=== PATIENT | male | born 1935 | race Caucasian/White ===

== ENCOUNTER → 2016-07-28 | Outpatient (CLI) | payer MEDICARE ==
[2016-07-28 10:03] LABS: ALT 25 U/L (21-72); AST 18 U/L (17-59); Alkaline Phosphatase 61 U/L (38-126); Anion Gap 14 mmol/L; Blood Urea Nitrogen 23 mg/dL (9-20); Calcium 8.9 mg/dL (8.4-10.2); Carbon Dioxide 20 mmol/L (22-30); Chloride 106 mmol/L (98-107); Glucose 214 mg/dL (74-99); Non-African American GFR(MDRD) >60 (>60 ml/min/1.73 sqM); Potassium 5.2 mmol/L (3.5-5.1); Sodium 140 mmol/L (137-145); Total Bilirubin 0.9 mg/dL (0.2-1.3); Total Protein 6.7 g/dL (6.3-8.2)
[2016-07-28 10:27] LABS: Partial Thromboplastin Time 24.4 sec (22.0-30.0); Prothrombin Time 10.5 sec (9.0-12.0)
[2016-07-28 10:37] LABS: Appearance,Urine Cloudy (Clear); Bilirubin,Urine 1+ (Negative); Glucose,Urine (UA) Trace (Negative); Ketones,Urine Trace (Negative); Leukocyte Esterase,Urine Trace (Negative); Mucus,Urine Occasional /hpf; Nitrite,Urine Negative (Negative); Particle Count 18633; Protein,Urine 2+ (Negative); RBC,Urine 7 /hpf (0-5); Specific Gravity,Urine 1.031 (1.001-1.035); Squamous Epithelial Cell,Urine 1 /hpf (0-4); UA Billing (MACRO vs. MICRO) MICRO; WBC,Urine 6 /hpf (0-5)
[2016-07-28 10:47] LABS: CH 28.4; CHCM 32.3; HCT 47.2 % (39.0-53.0); HDW 2.32; HGB 14.8 gm/dL (13.0-17.5); MCH 27.7 pg (25.0-35.0); MCHC 31.3 g/dL (31.0-37.0); MCV 88.4 fL (80.0-100.0); Mean Platelet Volume 6.5; RBC 5.34 m/uL (4.30-5.90); WBC 8.2 k/uL (3.8-10.6)
== END | disposition home or self-care (01) ==
LOC: LABWHC1 09:07
PROVIDERS: ATTEND Orthopaedic Surgery
DX: Z01.812 Encounter for preprocedural laboratory examination (principal)
CPT/HCPCS: 80053; 81001; 85027; 85610; 85730; 87070

== ENCOUNTER 2016-08-05 11:02 | Inpatient (IN) | payer MEDICARE ==
[2016-08-02 10:15] VITALS: BMI 33.2
[~2016-08-05 11:02] MED LIST: ACETAMINOPHEN TAB 500 MG TAB PO ONE; HYDROmorphone 1 MG/ML 1 ML SYRINGE IVP PRN; MELOXICAM 7.5 MG TAB PO ONE; MIDAZOLAM 2 MG/2 ML VIAL IV PRN; ONDANSETRON 4 MG/2 ML VIAL IVP ONE; TRANEXAMIC ACID 1,000 MG in SODIUM CHLORIDE 0.9% 100 ML IVPB ONE; ceFAZolin 2 GM in SODIUM CHLORIDE 0.9% 100 ML IVPB ONE
[2016-08-05] MEDS: LACTATED RINGERS 1,000 ML IV SCH (11:36)
[2016-08-05] MEDS ORDERED: LIDOCAINE 1% 20 ML VIAL (10MG/ML) FOR IV START INTRADERMA ONE (11:37)
[2016-08-05 11:49] LABS: Glucose,Whole Blood 162 mg/dL (75-99)
[2016-08-05] MEDS ORDERED: fentaNYL (PF) 50 MCG/ML 2 ML AMP IVP ONE (12:11)
[2016-08-05] MEDS ORDERED: DEXAMETHASONE SOD PHOSPHATE 10 MG/ML 1 ML VIAL IV ONE (12:27)
[2016-08-05] MEDS ORDERED: DIAZEPAM 5 MG TAB PO PRN ×2 (12:34)
[2016-08-05] MEDS ORDERED: HYDROcodone/APAP 5-325MG 1 EACH TAB PO PRN (12:34)
[2016-08-05] MEDS ORDERED: HYDROmorphone 1 MG/ML 1 ML SYRINGE IVP PRN ×3 (12:34)
[2016-08-05] MEDS ORDERED: NA PHOS,M-B/NA PHOS,DI-BA 133 ML ENEMA RECTAL PRN (12:34)
[2016-08-05] MEDS ORDERED: ONDANSETRON 4 MG/2 ML VIAL IVP PRN (12:34)
[2016-08-05] MEDS ORDERED: NALOXONE 0.4 MG/ML 1 ML VIAL IV PRN (12:34)
[2016-08-05] MEDS ORDERED: MAGNESIUM HYDROXIDE 2,400 MG/10 ML CUP PO PRN (12:34)
[2016-08-05] MEDS ORDERED: BISACODYL 10 MG SUPP RECTAL PRN (12:34)
[2016-08-05] MEDS ORDERED: TRANEXAMIC ACID 1,000 MG/10 ML VIAL ONE (12:36)
[2016-08-05] MEDS ORDERED: MIDAZOLAM 2 MG/2 ML VIAL ONE (12:36)
[2016-08-05] MEDS ORDERED: PROPOFOL 10 MG/ML 20 ML VIAL IV ONE (12:36)
[2016-08-05] MEDS ORDERED: fentaNYL (PF) 50 MCG/ML 2 ML AMP ONE (12:36)
[2016-08-05] MEDS ORDERED: ePHEDrine 50 MG/ML 1 ML AMP ONE (12:36)
[2016-08-05] MEDS ORDERED: ceFAZolin 3,000 MG in SODIUM CHLORIDE 0.9% IRRIGATIO 3,000 ML IRRIGATION ONE (12:36)
[2016-08-05] MEDS ORDERED: SODIUM CHLORIDE 0.9% 100 ML BAG ONE (12:36)
[2016-08-05] MEDS: ROPIVACAINE 246.25 MG, EPINEPHrine 0.5 MG, KETOROLAC 30 MG, cloNIDine HCL/PF 80 MCG, WA... MISCELLANE ONE ×10 (13:04→13:47)
[2016-08-05] MEDS ORDERED: LACTATED RINGERS 1,000 ML IV ONE (13:38)
[2016-08-05] MEDS ORDERED: ROPIVACAINE 1,100 MG, SODIUM CHLORIDE 0.9% 330 ML MISCELLANE PRN ×2 (14:05)
--- NOTE | 2016-08-05 14:13 | P.ONQ ---
Anesthesiology Proc Note - PNB - Peripheral Nerve Block Performed Right Adductor Canal Infusion Time Out Performed: Yes Indication: Acute Post-Operative Pain, Analgesia Sedation Type: Sedate with meaningful contact maintained Preparation: Sterile Prep Position: Supine Catheter Depth at Skin (cm): 6 Catheter: Indwelling Needle Types: Other (see comment) (Keren) Needle Size: 100mm (4") Needle Gauge: 18 Technique: Ultrasound Injectate: 0.5% Ropivacaine (see comment for volume) (20cc) Narrative: Blood aspirated initially. Needle withdrawn, redirected more caudally and the catheter placement was completed without further incident. Blood Aspirated: Yes Pain Paresthesia on Injection Noted: No Resistance on Injection: Normal Events: Other (see comment) (See Narrative)
--- NOTE | 2016-08-05 14:51 | XR ---
EXAMINATION TYPE: XR knee limited RT DATE OF EXAM: 08/05/2016 CLINICAL HISTORY: Postoperative evaluation Two views of the right knee are submitted. Identified are changes of total knee arthroplasty with femoral and tibial components appearing well seated. Postsurgical soft tissue changes are noted. Alignment is anatomic.
[2016-08-05 15:10] LABS: Glucose,Whole Blood 178 mg/dL (75-99)
--- NOTE | 2016-08-05 15:42 | P.OP ---
Date of Procedure: 08/05/16 Preoperative Diagnosis: Severe osteoarthritis right knee Postoperative Diagnosis: Severe osteoarthritis right knee Procedure(s) Performed: Right total knee arthroplasty Implants: Perez and Nephew Oxinium femoral component size 7, right Perez & Nephew Dawn II right nonporous tibial baseplate size 6 Perez & Nephew size 11 mm Legion XLPE dished articular insert, size 5-6 Perez & Nephew Dawn II resurfacing patellar component, 35 mm All components were cemented using Jerzy bone cement.. The articulation is ceramic on polyethylene. Anesthesia: spinal Surgeon: Ismael Sanchez Auto Vinyl Top Installer #1: Naya Fitzpatrick Estimated Blood Loss (ml): 50 Pathology: other (Bone and cartilage) Condition: stable Disposition: PACU Indications for Procedure: After failure of conservative treatment we discussed the surgical and nonsurgical treatment options at length. Patient wishes to proceed with a total knee arthroplasty. Complications specific to this procedure were discussed at length, including but not limited to infection, bleeding, stiffness , and nerve injury. Patient is aware of all these complications and informed consent was obtained Operative Findings: The operative findings are consistent with severe osteoarthritis of the right knee Description of Procedure: Patient was seen in the preoperative area consent was reviewed and operative site was marked with a skin marker. An adductor canal pain catheter was placed by anesthesia in the preoperative area. Patient was then brought to the operating room and given preoperative antibiotics intravenously. A spinal anesthetic was administered by the anesthesia department. A tourniquet was placed on the upper thigh and the lower extremity was prepped and draped in usual sterile fashion. A gram of transexamic acid was given. A universal timeout was then performed which confirmed the patient's name, surgical site, ALLERGIES, and consent. The lower extremity was then exsanguinated and tourniquet was inflated to 250 mmHg. A standard and anterior midline approach to the knee was performed. The skin and subcutaneous tissue was dissected down to the patellar tendon. A medial parapatellar arthrotomy was then performed. The knee was then extended, the patellar was everted, and the knee was again flexed. Anterior horns of both menisci were excised, and a release was performed to the posterior medial aspect of the knee. On gross visual inspection, there was complete loss of articular cartilage in the medial and patellofemoral joint spaces. There was also significant cartilage damage in the lateral compartment. There were multiple periarticular osteophytes which were then removed with a Ronguer. The femoral canal was then opened with the appropriate drill, and the intramedullary femoral cutting guide was then placed and set for 4 of valgus. The distal femoral cutting block was then pinned in place, and the distal femur was then cut. The cutting block was then removed and the cut was checked for flatness. Next, the sizing guide was then placed and set for 3 external rotation based off of the epicondylar axis and Whitesides line. After the femur was sized, the appropriate 4-in-1 cutting block was then pinned in place. The anterior condyles were cut without notching. The posterior and chamfer cuts were performed while protecting the collateral ligaments. The cutting block was then removed, and the femoral canal was plugged with autologous bone. Attention was then directed to the tibia. The remaining ACL was removed with a Ronguer, and the tibia was then gently subluxed forward with a large bent knee retractor. Any remaining menisci was excised. The posterior lateral corner was cauterized in order to cauterize the lateral geniculate artery. The extra medullary tibial cutting guide was then placed, set for the appropriate rotation , slope, and depth of resection. The proximal tibia cutting guide was then pinned in place. Proximal tibia was then cut and sized. Next trials were then placed with the appropriate-sized insert. The knee was able to fully extend and flex to 130 and was stable throughout all range of motion. The knee was then extended, patella everted. Patella was then measured, and then using an osteotomy guide, the patella was cut at the appropriate level. The patella was then measured and drilled and the patella trial was then placed. The knee was then taken through range of motion with the patella trial and the patella tracked normally. The knee was then extended patella trial was then removed and the patella was everted. Knee was then flexed and lug holes were drilled through the femoral trial and the femoral trial was then removed. The tibial was then exposed, and the tibial broach guide was then pinned in place after it was set for the appropriate rotation to allow for the most coverage without overhang. The tibia was then reamed and broached. The cut surfaces of bone were then irrigated with pulsatile lavage. The posterior structures were injected with the ropivacaine solution. The knee was also irrigated with Irrisept solution. The components were then opened, the cement was mixed, and the components were then cemented in place. The cement was allowed to harden with the knee in full extension. While the cement was hardening, the remaining soft tissues were then injected with a ropivacaine solution, which consisted of 246.25 mg of ropivacaine, 0.5 mg of epinephrine, 30 mg of Toradol, 80 g of clonidine, and 48.45 mL of sterile water, for a total of 100 mL of fluid injected. After the cemented hardened. The tourniquet was released, and hemostasis was obtained. A second gram of transexamic acid was given. The knee was again irrigated. The knee was again taken through range of motion and found to be stable throughout all range of motion of 0-130 , and the patella tracked normally. The fascia was then closed with #2 strata fix suture. The subcutaneous tissue was closed with 3-0 Vicryl and 3-0 strata fix. Dermabond tape was used for the skin and placed with the knee in flexion. The patient was placed in a sterile dressing. Patient was then transferred to recovery room in stable condition. The health care assistant ROLY Flores was required due the complexity surgery and the need for a skilled hand frame surgical elastic knitter. She assisted in positioning, draping, retraction, and closure of the wound.
[2016-08-05] MEDS: SODIUM CHLORIDE 0.9% 1,000 ML IV SCH (16:03)
[2016-08-05 17:06] LABS: Glucose,Whole Blood 194 mg/dL (75-99)
[2016-08-05 20:41] LABS: Glucose,Whole Blood 271 mg/dL (75-99)
[2016-08-05] MEDS: SENNOSIDES-DOCUSATE SODIUM 1 EACH TAB PO SCH (20:59)
[2016-08-05] MEDS: ATORVASTATIN 10 MG TAB PO SCH (20:59)
[2016-08-05] MEDS: ASPIRIN 325 MG TAB PO SCH (20:59)
[2016-08-05] MEDS: ceFAZolin 2 GM in SODIUM CHLORIDE 0.9% 100 ML IVPB SCH (21:00)
[2016-08-05] MEDS: metFORMIN 500 MG TAB PO SCH (21:36)
[2016-08-05] MEDS: LEVOTHYROXINE 25 MCG TAB PO SCH (21:36)
[2016-08-06 01:48] LABS: Glucose,Whole Blood 258 mg/dL (75-99)
[2016-08-06] MEDS: ceFAZolin 2 GM in SODIUM CHLORIDE 0.9% 100 ML IVPB SCH (04:07)
[2016-08-06] MEDS: LACTATED RINGERS 1,000 ML IV SCH ×2 (06:08→21:02)
[2016-08-06 07:23] LABS: Glucose,Whole Blood 205 mg/dL (75-99)
[2016-08-06 07:37] LABS: Basophils % (A) 0 %; CH 27.9; CHCM 33.3; Eosinophils % (A) 0 %; HCT 38.5 % (39.0-53.0); HDW 2.32; HGB 12.6 gm/dL (13.0-17.5); Luc # (Auto) 0.29; Luc % (Auto) 2; Lymphocytes # (A) 1.3 k/uL (1.0-4.8); Lymphocytes % (A) 9 %; MCH 27.5 pg (25.0-35.0); MCHC 32.7 g/dL (31.0-37.0); MCV 84.1 fL (80.0-100.0); Mean Platelet Volume 6.5; Monocytes # (A) 1.3 k/uL (0-1.0); Monocytes % (A) 9 %; Neutrophils # (A) 12.1 k/uL (1.3-7.7); Neutrophils % (A) 81 %; RBC 4.58 m/uL (4.30-5.90); RDW 13.9 % (11.5-15.5); WBC (Perox) 15.55
[2016-08-06] MEDS: metFORMIN 500 MG TAB PO SCH ×2 (07:55→20:24)
[2016-08-06] MEDS: INSULIN NPL/INSULIN LISPRO 100 UNIT/ML 10 ML VIAL (Humalog 75/25) SQ SCH ×2 (07:57→17:33)
[2016-08-06] MEDS: ASPIRIN 325 MG TAB PO SCH ×2 (08:31→20:24)
--- NOTE | 2016-08-06 09:34 | P.PN ---
Progress Note - Text The patient is status post, right adductor canal catheter placement. The catheter was placed for postoperative pain control, status post total right arthroplasty. Ropivacaine 0.2% is infusing at 8 mLs per hour. The patient has no complaints of 8 lower extremity numbness or weakness. Patient's VAS score is 3 -10. Assessment: Patient's adductor canal catheter is in place and working appropriately. Plan: continue infusion and adjust it as needed.
[2016-08-06 11:42] LABS: Glucose,Whole Blood 234 mg/dL (75-99)
[2016-08-06] MEDS: MELOXICAM 7.5 MG TAB PO SCH (11:42)
[2016-08-06] MEDS: SODIUM CHLORIDE 0.9% 1,000 ML IV SCH ×2 (11:44→21:02)
--- NOTE | 2016-08-06 11:49 | P.PN ---
Subjective Principal diagnosis: Primary osteoarthritis right knee. Status post total right knee arthroplasty. This is a 81-year-old male who is status post total right knee arthroplasty. He is doing well from an orthopedic standpoint. He has no new complaints or concerns today. Vital signs and labs are stable. Objective - Vital Signs Vital signs: Vital Signs Temp 97.4 F L 08/06/16 07:00 Pulse 80 08/06/16 07:00 Resp 16 08/06/16 07:00 BP 121/55 08/06/16 07:00 Pulse Ox 96 08/06/16 07:00 Intake & Output 08/05/16 08/06/16 08/06/16 18:59 06:59 18:59 Intake Total 1406 1010 Output Total 200 200 250 Balance 1206 810 -250 Weight 111.13 kg Intake: IV 1406 400 Sodium Chloride 0.9% 1, 400 000 ml @ 50 mls/hr IV . Q20H KELBY Rx#:[id number] Intake, IV Titration 150 Amount Sodium Chloride 0.9% 1, 150 000 ml @ 50 mls/hr IV . Q20H KELBY Rx#:[id number] Oral 460 Output: Urine 150 200 250 Estimated Blood Loss 50 Other: # Voids 1 - Exam This is a pleasant 81-year-old male in no acute distress. He is alert and oriented 3. Exam of the right lower extremity reveals that the dressing is clean, dry and intact. He has full foot and ankle motion without difficulty or pain. Neurovascular status to the right lower extremity is intact. - Labs CBC & Chem 7: 08/06/16 06:47 08/05/16 11:35 Labs: Abnormal Lab Results - Last 24 Hours (Table) 08/05/16 08/05/16 08/05/16 Range/Units 11:32 15:08 17:04 WBC (3.8-10.6) k/uL Hgb (13.0-17.5) gm/dL Hct (39.0-53.0) % Neutrophils # (1.3-7.7) k/uL Monocytes # (0-1.0) k/uL POC Glucose (mg/dL) 162 H 178 H 194 H (75-99) mg/dL 08/05/16 08/06/16 08/06/16 Range/Units 20:40 01:43 06:47 WBC 15.0 H (3.8-10.6) k/uL Hgb 12.6 L (13.0-17.5) gm/dL Hct 38.5 L (39.0-53.0) % Neutrophils # 12.1 H (1.3-7.7) k/uL Monocytes # 1.3 H (0-1.0) k/uL POC Glucose (mg/dL) 271 H 258 H (75-99) mg/dL 08/06/16 08/06/16 Range/Units 07:05 11:38 WBC (3.8-10.6) k/uL Hgb (13.0-17.5) gm/dL Hct (39.0-53.0) % Neutrophils # (1.3-7.7) k/uL Monocytes # (0-1.0) k/uL POC Glucose (mg/dL) 205 H 234 H (75-99) mg/dL Assessment and Plan (1) Primary osteoarthritis of right knee Status: Acute (2) Status post total right knee replacement Status: Acute Plan: The clinical findings are discussed with the patient. He is to continue with physical therapy as directed. He is requesting discharge to inpatient rehab.
--- NOTE | 2016-08-06 12:07 | P.HPIM ---
History of Present Illness H&P Date: 08/06/16 Chief Complaint: R Knee pain Patient is a 81-year-old male well-know to my practice, who was admitted by Dr. fox to [facility] for right total knee arthroplasty. Patient has prolonged history of osteoarthritis of the right knee, he failed conservative management and decision was made to proceed was right total knee arthroplasty. His past medical history is significant for insulin-dependent diabetes mellitus , Hypertension, hyperlipidemia, hypothyroidism, and osteoarthritis. Patient also has a previous history of prostate cancer. Past Medical History Past Medical History: Cancer, Diabetes Mellitus, Hyperlipidemia, Hypertension, Thyroid Disorder Additional Past Medical History / Comment(s): prostate cancer, hx of colon polyps History of Any Multi-Drug Resistant Organisms: None Reported Past Surgical History: Cardiac Valve Replacement, Heart Catheterization, Hernia Repair, Prostate Surgery, Tonsillectomy Additional Past Surgical History / Comment(s): OMEGA CATARACT SX. Past Anesthesia/Blood Transfusion Reactions: No Reported Reaction Past Psychological History: No Psychological Hx Reported Smoking Status: Never smoker - Past Family History Mother Family Medical History: No Reported History Medications and Allergies Home Medications Medication Instructions Recorded Confirmed Type Levothyroxine Sodium [Synthroid] 25 mcg PO HS 05/05/14 08/05/16 History Simvastatin [Zocor] 20 mg PO HS 05/05/14 08/05/16 History INSULIN LISPRO (humaLOG) [humaLOG 10 unit SQ AC-LUNCH 08/02/16 08/05/16 History (formulary)] Insulin NPL/Insulin Lispro 54 unit SQ AC-SUPPER 08/02/16 08/05/16 History [humaLOG MIX 75-25 VIAL] Insulin NPL/Insulin Lispro 60 unit SQ AC-BRKFST 08/02/16 08/05/16 History [humaLOG MIX 75-25 VIAL] Allergies Allergy/AdvReac Type Severity Reaction Status Date / Time No Known Allergies Allergy Verified 08/05/16 15:14 Physical Exam Vitals: Vital Signs Temp Pulse Pulse Pulse Resp BP Pulse Ox 08/06/16 07:00 97.4 F L 80 16 121/55 96 08/06/16 04:00 20 08/06/16 01:53 98.1 F 75 17 165/70 95 08/05/16 20:28 97.6 F 74 17 136/75 96 08/05/16 17:50 97.5 F L 69 18 136/62 95 08/05/16 17:35 69 18 135/62 08/05/16 17:20 74 18 138/65 08/05/16 17:05 71 18 137/65 08/05/16 16:50 69 18 135/64 08/05/16 16:35 68 18 126/63 08/05/16 16:20 67 18 124/58 08/05/16 16:05 68 18 130/63 08/05/16 15:50 97.5 F L 71 18 128/60 95 08/05/16 15:36 71 16 130/61 96 08/05/16 15:02 73 16 119/57 96 08/05/16 14:47 67 16 125/57 96 08/05/16 14:32 97.5 F L 75 16 105/64 95 Intake and Output 08/05/16 08/06/16 08/06/16 22:59 06:59 14:59 Intake Total 610 400 Output Total 150 200 250 Balance 460 200 -250 Intake: IV 400 Sodium Chloride 0.9% 1, 400 000 ml @ 50 mls/hr IV . Q20H KELBY Rx#:[id number] Intake, IV Titration 150 Amount Sodium Chloride 0.9% 1, 150 000 ml @ 50 mls/hr IV . Q20H KELBY Rx#:[id number] Oral 460 Output: Urine 150 200 250 Other: # Voids 1 Weight 111.13 kg 111.13 kg In general patient is alert and oriented 3 in no apparent distress HEENT head normocephalic and atraumatic Neck is supple no JVD no goiter no lymphadenopathy Chest exam reveals clear respiratory sounds no crackles no wheezing Cardiac exam reveals regular heart sounds no gallops no murmurs Abdomen is soft nontender no organomegaly with normal bowel sounds Extremity exam reveals no edema no cyanosis or clubbing Results CBC & Chem 7: 08/06/16 06:47 08/05/16 11:35 Labs: Abnormal Lab Results - Last 24 Hours (Table) 08/05/16 08/05/16 08/05/16 Range/Units 15:08 17:04 20:40 WBC (3.8-10.6) k/uL Hgb (13.0-17.5) gm/dL Hct (39.0-53.0) % Neutrophils # (1.3-7.7) k/uL Monocytes # (0-1.0) k/uL POC Glucose (mg/dL) 178 H 194 H 271 H (75-99) mg/dL 08/06/16 08/06/16 08/06/16 Range/Units 01:43 06:47 07:05 WBC 15.0 H (3.8-10.6) k/uL Hgb 12.6 L (13.0-17.5) gm/dL Hct 38.5 L (39.0-53.0) % Neutrophils # 12.1 H (1.3-7.7) k/uL Monocytes # 1.3 H (0-1.0) k/uL POC Glucose (mg/dL) 258 H 205 H (75-99) mg/dL 08/06/16 Range/Units 11:38 WBC (3.8-10.6) k/uL Hgb (13.0-17.5) gm/dL Hct (39.0-53.0) % Neutrophils # (1.3-7.7) k/uL Monocytes # (0-1.0) k/uL POC Glucose (mg/dL) 234 H (75-99) mg/dL Thrombosis Risk Factor Assmnt - Choose All That Apply Each Factor Represents 1 point: Obesity (BMI >25) Each Risk Factor Represents 3 Points: Age 75 years or older Each Risk Factor Represents 5 Points: Elective major lower extremity arthoplasty Thrombosis Risk Factor Assessment Total Risk Factor Score: 9 Thrombosis Risk Factor Assessment Level: High Risk Assessment and Plan Plan: #1 status post right total knee arthroplasty postoperative day #1, pain management and DVT prophylaxis as per orthopedic protocol, patient is maintained on aspirin 325 twice daily and oral [place] and IV dye Dilaudid. #2 underlying history of insulin-dependent diabetes mellitus patient was resumed on Humalog Mix 75/25 twice daily and Humalog 10 units before lunch Will monitor glucose level and adjust insulin dose if needed #3 underlying history of hypertension well-controlled continue current medications #4 underlying history of hypothyroidism maintained on Synthroid continue current dose #5 underlying history of hyperlipidemia maintained on Lipitor continue Will follow during this hospitalization for medical management plan is for discharge to senior care on Monday
[2016-08-06] MEDS: INSULIN LISPRO (humaLOG) 300 UNIT/3 ML VIAL SQ SCH (12:43)
[2016-08-06] MEDS: HYDROcodone/APAP 5-325MG 1 EACH TAB PO PRN (14:45)
[2016-08-06] MEDS: hydrOXYzine PAMOATE 25 MG CAP PO PRN (14:46)
[2016-08-06 16:28] LABS: Glucose,Whole Blood 192 mg/dL (75-99)
[2016-08-06 20:13] LABS: Glucose,Whole Blood 224 mg/dL (75-99)
[2016-08-06] MEDS: ATORVASTATIN 10 MG TAB PO SCH (20:24)
[2016-08-06] MEDS: LEVOTHYROXINE 25 MCG TAB PO SCH (20:24)
[2016-08-06] MEDS: SENNOSIDES-DOCUSATE SODIUM 1 EACH TAB PO SCH (20:25)
[2016-08-07 07:11] LABS: Glucose,Whole Blood 136 mg/dL (75-99)
[2016-08-07] MEDS: hydrOXYzine PAMOATE 25 MG CAP PO PRN (07:13)
[2016-08-07] MEDS: HYDROcodone/APAP 5-325MG 1 EACH TAB PO PRN (07:14)
[2016-08-07] MEDS: INSULIN NPL/INSULIN LISPRO 100 UNIT/ML 10 ML VIAL (Humalog 75/25) SQ SCH ×2 (07:18→17:40)
[2016-08-07] MEDS: metFORMIN 500 MG TAB PO SCH ×2 (08:12→20:25)
[2016-08-07] MEDS: ASPIRIN 325 MG TAB PO SCH ×2 (09:49→20:25)
[2016-08-07] MEDS: MELOXICAM 7.5 MG TAB PO SCH (09:49)
--- NOTE | 2016-08-07 10:09 | P.PN ---
Progress Note - Text The patient is status post, right adductor canal catheter placement. The catheter was placed for postoperative pain control, status post total right arthroplasty. Ropivacaine 0.2% is infusing at 8 mLs per hour. The patient has no complaints of right lower extremity numbness or weakness. Patient's VAS score is 1-2-10. Assessment: Patient's adductor canal catheter is in place and working appropriately. Plan: continue infusion and adjust it as needed..
--- NOTE | 2016-08-07 10:23 | P.PN ---
Subjective Principal diagnosis: Primary osteoarthritis right knee. Status post total right knee arthroplasty. This is a 81-year-old male who is status post total right knee arthroplasty. He is doing well from an orthopedic standpoint. He has no new complaints or concerns today. Vital signs and labs are stable. He is awaiting rehab placement. Objective - Vital Signs Vital signs: Vital Signs Temp 98.1 F 08/07/16 07:00 Pulse 76 08/07/16 07:00 Resp 15 08/07/16 07:00 BP 131/67 08/07/16 07:00 Pulse Ox 95 08/07/16 07:00 Intake & Output 08/06/16 08/07/16 08/07/16 18:59 06:59 18:59 Intake Total 400 2310 Output Total 250 500 Balance 150 1810 Intake: IV 400 Sodium Chloride 0.9% 1, 400 000 ml @ 50 mls/hr IV . Q20H KELBY Rx#:[id number] Oral 2310 Output: Urine 250 500 Other: Voiding Method Toilet Urinal # Voids 1 1 - Exam This is a pleasant 81-year-old male in no acute distress. He is alert and oriented 3. Exam of the right lower extremity reveals that the dressing is clean, dry and intact. He has full foot and ankle motion without difficulty or pain. Neurovascular status to the right lower extremity is intact. - Labs CBC & Chem 7: 08/06/16 06:47 08/05/16 11:35 Labs: Abnormal Lab Results - Last 24 Hours (Table) 08/06/16 08/06/16 08/06/16 Range/Units 11:38 16:26 20:06 POC Glucose (mg/dL) 234 H 192 H 224 H (75-99) mg/dL 08/07/16 Range/Units 06:57 POC Glucose (mg/dL) 136 H (75-99) mg/dL Assessment and Plan (1) Primary osteoarthritis of right knee Status: Acute (2) Status post total right knee replacement Status: Acute Plan: The clinical findings are discussed with the patient. He is to continue with physical therapy as directed. He is requesting discharge to inpatient rehab. We're planning discharge to rehab tomorrow.
[2016-08-07 11:25] LABS: Glucose,Whole Blood 148 mg/dL (75-99)
[2016-08-07] MEDS: INSULIN LISPRO (humaLOG) 300 UNIT/3 ML VIAL SQ SCH (12:51)
--- NOTE | 2016-08-07 13:39 | P.PN ---
Subjective Principal diagnosis: R knee pain Patient is a 81-year-old male well-know to my practice, who was admitted by Dr. fox to [facility] for right total knee arthroplasty. Patient has prolonged history of osteoarthritis of the right knee, he failed conservative management and decision was made to proceed was right total knee arthroplasty. His past medical history is significant for insulin-dependent diabetes mellitus , Hypertension, hyperlipidemia, hypothyroidism, and osteoarthritis. Patient also has a previous history of prostate cancer. Today patient is feeling better he is still having pain in the R thigh otherwise no complaints, he is able to ambulate. Objective - Vital Signs Vital signs: Vital Signs Temp 98.1 F 08/07/16 07:00 Pulse 76 08/07/16 07:00 Resp 15 08/07/16 07:00 BP 131/67 08/07/16 07:00 Pulse Ox 95 08/07/16 07:00 Intake & Output 08/06/16 08/07/16 08/07/16 18:59 06:59 18:59 Intake Total 400 2310 Output Total 250 500 Balance 150 1810 Intake: IV 400 Sodium Chloride 0.9% 1, 400 000 ml @ 50 mls/hr IV . Q20H KELBY Rx#:[id number] Oral 2310 Output: Urine 250 500 Other: Voiding Method Toilet Urinal # Voids 1 1 - Exam In general patient is alert and oriented 3 in no apparent distress HEENT head normocephalic and atraumatic Neck is supple no JVD no goiter no lymphadenopathy Chest exam reveals clear respiratory sounds no crackles no wheezing Cardiac exam reveals regular heart sounds no gallops no murmurs Abdomen is soft nontender no organomegaly with normal bowel sounds Extremity exam reveals no edema no cyanosis or clubbing - Labs CBC & Chem 7: 08/06/16 06:47 08/05/16 11:35 Labs: Abnormal Lab Results - Last 24 Hours (Table) 08/06/16 08/06/16 08/07/16 Range/Units 16:26 20:06 06:57 POC Glucose (mg/dL) 192 H 224 H 136 H (75-99) mg/dL 08/07/16 Range/Units 11:23 POC Glucose (mg/dL) 148 H (75-99) mg/dL Assessment and Plan Plan: #1 status post right total knee arthroplasty postoperative day #1, pain management and DVT prophylaxis as per orthopedic protocol, patient is maintained on aspirin 325 twice daily and oral [place] and IV dye Dilaudid. #2 underlying history of insulin-dependent diabetes mellitus patient was resumed on Humalog Mix 75/25 twice daily and Humalog 10 units before lunch Will monitor glucose level and adjust insulin dose if needed #3 underlying history of hypertension well-controlled continue current medications #4 underlying history of hypothyroidism maintained on Synthroid continue current dose #5 underlying history of hyperlipidemia maintained on Lipitor continue Will follow during this hospitalization for medical management plan is for discharge to long-term on Monday
[2016-08-07 16:36] LABS: Glucose,Whole Blood 148 mg/dL (75-99)
[2016-08-07] MEDS: LEVOTHYROXINE 25 MCG TAB PO SCH (20:25)
[2016-08-07] MEDS: ATORVASTATIN 10 MG TAB PO SCH (20:25)
[2016-08-07] MEDS: SODIUM CHLORIDE 0.9% 1,000 ML IV SCH (20:26)
[2016-08-07] MEDS: LACTATED RINGERS 1,000 ML IV SCH (20:26)
[2016-08-07] MEDS: SENNOSIDES-DOCUSATE SODIUM 1 EACH TAB PO SCH (20:26)
[2016-08-07 20:30] LABS: Glucose,Whole Blood 181 mg/dL (75-99)
[2016-08-08 01:01] VITALS: BP 157/70; TEMP 98.1
[2016-08-08 07:05] LABS: Basophils % (A) 0 %; CHCM 33.6; Eosinophils # (A) 0.1 k/uL (0-0.7); Eosinophils % (A) 1 %; HCT 36.8 % (39.0-53.0); HDW 2.32; HGB 12.6 gm/dL (13.0-17.5); Luc # (Auto) 0.23; Luc % (Auto) 2; Lymphocytes # (A) 1.6 k/uL (1.0-4.8); Lymphocytes % (A) 13 %; MCH 28.5 pg (25.0-35.0); MCHC 34.1 g/dL (31.0-37.0); MCV 83.6 fL (80.0-100.0); Mean Platelet Volume 6.4; Monocytes # (A) 1.2 k/uL (0-1.0); Monocytes % (A) 10 %; Neutrophils # (A) 8.5 k/uL (1.3-7.7); Neutrophils % (A) 73 %; RBC 4.41 m/uL (4.30-5.90); RDW 13.9 % (11.5-15.5); WBC 11.7 k/uL (3.8-10.6); WBC (Perox) 11.92
[2016-08-08 07:24] LABS: Glucose,Whole Blood 124 mg/dL (75-99)
[2016-08-08 07:45] VITALS: PULSE 92; RESP 16
[2016-08-08] MEDS: HYDROcodone/APAP 5-325MG 1 EACH TAB PO PRN (07:48)
[2016-08-08] MEDS: metFORMIN 500 MG TAB PO SCH (07:50)
[2016-08-08] MEDS: MELOXICAM 7.5 MG TAB PO SCH (08:43)
[2016-08-08] MEDS: ASPIRIN 325 MG TAB PO SCH (08:43)
--- NOTE | 2016-08-08 08:51 | P.DS ---
Providers Date of admission: 08/05/16 11:02 Expected date of discharge: 08/08/16 Attending physician: Ismael Sanchez Consults: 08/05/16 12:45 Consult Physician Routine Consulting Provider: Jomar Rangel Consult Reason/Comments: medical management Do you want consulting provider notified?: Yes Primary care physician: Jomar [facility] Course: This is a 81-year-old male with known history of degenerative arthritis of the right knee. The patient presents for evaluation. After discussion and consideration patient elects to proceed with total knee arthroplasty. The patient is seen preoperatively by Dr. Sanchez and cleared for surgery. Patient is admitted to [facility] on 08/05/2016 for total knee arthroplasty. The procedures performed without complication or sequelae. The patient is doing well postoperatively. Labs and vital signs are stable on day of discharge. On day of discharge patient's knee incision is healing well. There is minimal erythema. There is no drainage noted at this time. There is minimal soft tissue swelling to the knee. Patient has full foot and ankle motion without difficulty or pain. Neurovascular status to the right lower extremity is intact. Patient is discharged to rehab in good condition. Please see med rec for accurate list of home medications. Plan - Discharge Summary New Discharge Prescriptions: New Aspirin 325 mg PO BID #60 tab HYDROcodone/APAP 5-325MG [[place] 5-325] 1 - 2 tab PO Q4-6H PRN #90 tab PRN Reason: Pain Sennosides-Docusate Sodium [Senokot-S] 1 tab PO BID #60 tablet No Action Levothyroxine Sodium [Synthroid] 25 mcg PO HS Simvastatin [Zocor] 20 mg PO HS metFORMIN HCL 1,000 mg PO BID #0 Aspirin 81 mg PO DAILY chew Insulin NPL/Insulin Lispro [humaLOG MIX 75-25 VIAL] 60 unit SQ AC-BRKFST Insulin NPL/Insulin Lispro [humaLOG MIX 75-25 VIAL] 54 unit SQ AC-SUPPER INSULIN LISPRO (humaLOG) [humaLOG (formulary)] 10 unit SQ AC-LUNCH Discharge Medication List Levothyroxine Sodium [Synthroid] 25 mcg PO HS 05/05/14 [History] Simvastatin [Zocor] 20 mg PO HS 05/05/14 [History] metFORMIN HCL 1,000 mg PO BID #0 05/06/14 [Rx] Aspirin 81 mg PO DAILY chew 06/24/14 [Rx] INSULIN LISPRO (humaLOG) [humaLOG (formulary)] 10 unit SQ AC-LUNCH 08/02/16 [ History] Insulin NPL/Insulin Lispro [humaLOG MIX 75-25 VIAL] 54 unit SQ AC-SUPPER [History] Insulin NPL/Insulin Lispro [humaLOG MIX 75-25 VIAL] 60 unit SQ AC-BRKFST [History] Aspirin 325 mg PO BID #60 tab 08/05/16 [Rx] HYDROcodone/APAP 5-325MG [[place] 5-325] 1 - 2 tab PO Q4-6H PRN #90 tab 08/05/16 [ Rx] Sennosides-Docusate Sodium [Senokot-S] 1 tab PO BID #60 tablet 08/05/16 [Rx] Follow up Appointment(s)/Referral(s): Ismael Sanchez DO [Doctor of Osteopathic Medicine] - 2 Weeks Ambulatory/Diagnostic Orders: Continuous Passive Motion (CPM) Machine [DME.AMB1] Time Frame: 2 Weeks, Location : Determined By Patient Activity/Diet/Wound Care/Special Instructions: Weightbearing as tolerated with a walker CPM 5-6h daily Daily dressing changes, keep incision clean and dry May shower if no drainage from incision Call [facility] with questions or concerns [phone] Discharge Disposition: HOME WITH HOME HEALTH SERVICES
--- NOTE | 2016-08-08 09:26 | XR ---
EXAMINATION TYPE: XR chest 2V DATE OF EXAM: 08/08/2016 COMPARISON: 06/24/2014 HISTORY: 81 year-old male history of requirement after right knee replacement TECHNIQUE: Frontal and lateral views FINDINGS: Heart is borderline enlarged. Aorta vasculature within normal limits. Diffuse interstitial prominence as a chronic appearance. Trace residual left pleural effusion is noted only seen on the lateral view . Some residual strandy atelectasis at the left base. No aleah consolidation. IMPRESSION: Borderline cardiomegaly. Improved aeration from prior exams with residual trace effusion only seen on the lateral view.
[2016-08-08] MEDS: INSULIN NPL/INSULIN LISPRO 100 UNIT/ML 10 ML VIAL (Humalog 75/25) SQ SCH (09:49)
[2016-08-08 11:45] LABS: Glucose,Whole Blood 150 mg/dL (75-99)
[2016-08-08] MEDS: INSULIN LISPRO (humaLOG) 300 UNIT/3 ML VIAL SQ SCH (12:19)
--- NOTE | 2016-08-08 12:23 | P.PN ---
Subjective Status post right total knee arthroplasty Patient is scheduled for discharge to [facility] today. Patient reports a fall this morning. Patient was in the restroom trying to pull up his boxers and fell to the ground. No new injury. He was seen by orthopedics and no new x- rays needed. He has been up and walking with physical therapy with no problem. He did not hit his head there is no loss of consciousness. Nursing staff reports there is a small abrasion along the back. The patient has no back pain. There is no actual skin opening or tender per nursing staff. Patient denies any chest pain or shortness of breath. Denies any nausea or vomiting. Reports having bowel movements. Denies any difficulty urinating. Objective - Vital Signs Vital signs: Vital Signs Temp 98.1 F 08/08/16 07:00 Pulse 92 08/08/16 07:00 Resp 16 08/08/16 07:00 BP 157/70 08/08/16 01:00 Pulse Ox 95 08/08/16 07:00 Intake & Output 08/07/16 08/08/16 08/08/16 18:59 06:59 18:59 Intake Total 236 Output Total 250 250 300 Balance -250 -250 -64 Intake: Oral 236 Output: Urine 250 250 300 Other: Voiding Method Toilet Toilet Urinal Urinal # Voids 1 1 - Exam Head normocephalic Neck supple Lungs clear to auscultation bilaterally no wheezing or crackles Heart regular rate and rhythm S1-S2, no rub or gallop Abdomen is soft nontender nondistended positive bowel sounds no hepatosplenomegaly Extremities no edema. Right knee dressing clean dry and intact Neuro alert and orientated to 3 - Labs CBC & Chem 7: 08/08/16 06:31 08/05/16 11:35 Labs: Abnormal Lab Results - Last 24 Hours (Table) 08/07/16 08/07/16 08/08/16 Range/Units 16:33 20:24 06:31 WBC 11.7 H (3.8-10.6) k/uL Hgb 12.6 L (13.0-17.5) gm/dL Hct 36.8 L (39.0-53.0) % Neutrophils # 8.5 H (1.3-7.7) k/uL Monocytes # 1.2 H (0-1.0) k/uL POC Glucose (mg/dL) 148 H 181 H (75-99) mg/dL 08/08/16 08/08/16 Range/Units 07:19 11:41 WBC (3.8-10.6) k/uL Hgb (13.0-17.5) gm/dL Hct (39.0-53.0) % Neutrophils # (1.3-7.7) k/uL Monocytes # (0-1.0) k/uL POC Glucose (mg/dL) 124 H 150 H (75-99) mg/dL Assessment and Plan Plan: #1 status post right total knee arthroplasty postoperative day #2, pain management and DVT prophylaxis as per orthopedic protocol, patient is maintained on aspirin 325 twice daily and oral Bayard #2 underlying history of insulin-dependent diabetes mellitus patient was resumed on Humalog Mix 75/25 twice daily and Humalog 10 units before lunch Will monitor glucose level and adjust insulin dose if needed #3 underlying history of hypertension well-controlled continue current medications #4 underlying history of hypothyroidism maintained on Synthroid continue current dose #5 hyperlipidemia continue Lipitor #6 fall with no new injury. Evaluated by orthopedics. Patient is stable for Patient is medically stable for discharge to [facility]. Dr. Holman will outpatient at [facility] I performed an examination of the patient and discussed their management with the physician Glazier Stained Glass. I have reviewed the Physician Glazier Stained Glass's notes and agree with the documented findings and plan of care
== END 2016-08-08 13:00 | DRG 470 ==
LOC: 2ORMAIN 11:02 → 3SUR 14:32
PROVIDERS: ADMIT Orthopaedic Surgery; ATTEND Orthopaedic Surgery
PROC: 0SRC0J9 Replacement of Right Knee Joint with Synthetic Substitute, Cemented, Open Approach (ICD-10-PCS; principal; 2016-08-05 12:30)
DX: M17.11 Unilateral primary osteoarthritis, right knee (principal); I48.0 Paroxysmal atrial fibrillation; I11.9 Hypertensive heart disease without heart failure; E11.319 Type 2 diabetes mellitus with unspecified diabetic retinopathy without macular edema; E11.9 Type 2 diabetes mellitus without complications; E03.9 Hypothyroidism, unspecified; E78.2 Mixed hyperlipidemia; E66.9 Obesity, unspecified; E55.9 Vitamin D deficiency, unspecified; R26.81 Unsteadiness on feet; Z79.4 Long term (current) use of insulin; Z79.82 Long term (current) use of aspirin; Z79.899 Other long term (current) drug therapy; Z95.2 Presence of prosthetic heart valve; Z85.46 Personal history of malignant neoplasm of prostate; W18.39XA Other fall on same level, initial encounter; Y92.231 Patient bathroom in hospital as the place of occurrence of the external cause
CPT/HCPCS: 71020; 84132; 85025; 88305; 88311

== ENCOUNTER 2017-11-22 14:34 | Inpatient (IN) | payer MEDICARE ==
[~2017-11-22 14:34] MED LIST changes: -ACETAMINOPHEN TAB 500 MG TAB PO ONE; +HEPARIN SODIUM 1,000 UN/ML (10ML VL) ONE; -HYDROmorphone 1 MG/ML 1 ML SYRINGE IVP PRN; +LIDOCAINE 1% INJ 10MG/ML (20 ML MDV) ONE; -MELOXICAM 7.5 MG TAB PO ONE; -MIDAZOLAM 2 MG/2 ML VIAL IV PRN; -ONDANSETRON 4 MG/2 ML VIAL IVP ONE; -TRANEXAMIC ACID 1,000 MG in SODIUM CHLORIDE 0.9% 100 ML IVPB ONE; -ceFAZolin 2 GM in SODIUM CHLORIDE 0.9% 100 ML IVPB ONE
[2017-11-22] MEDS ORDERED: CALCIUM GLUCONATE 1,000 MG in SODIUM CHLORIDE 0.9% 100 ML IVPB ONE ×2 (15:04→18:05)
[2017-11-22] MEDS ORDERED: ALBUTEROL NEBULIZED 2.5 MG/3 ML INHALATION STA (15:09)
[2017-11-22] MEDS ORDERED: SODIUM BICARB 8.4% 50 ML SYR (1 MEQ/ML) IV STA (15:12)
[2017-11-22] MEDS ORDERED: SODIUM BICARB 8.4% 50 ML SYR (1 MEQ/ML) IV ONE ×2 (15:14→18:02)
[2017-11-22] MEDS ORDERED: SODIUM BICARB 8.4% 50 ML VIAL (1 MEQ/ML) IV ONE (15:14)
[2017-11-22 15:16] LABS: Glucose,Whole Blood 64 mg/dL (75-99)
[2017-11-22] MEDS ORDERED: SODIUM CHLORIDE 0.9% 500 ML 500 ML IV STA (15:43)
[2017-11-22 15:52] LABS: Glucose,Whole Blood 82 mg/dL (75-99)
--- NOTE | 2017-11-22 15:54 | ED ---
General Adult HPI - General Chief complaint: Weakness Stated complaint: weakness Source: patient, EMS Mode of arrival: EMS Limitations: no limitations - History of Present Illness Initial comments: Dictation was produced using [employer] dictation software. please excuse any grammatical, word or spelling errors. Chief Complaint: 82-year-old male presents with generalized weakness. History of Present Illness: 10-year-old male who presents with generalized weakness for 3-4 days. Patient has past medical history of diabetes , cancer, dyslipidemia, hypertension. History is limited secondary to mental status. Patient appears very lethargic. Chart review shows that patient has history of coronary artery disease, cardiac valve replacement. Patient has a history of insulin-dependent diabetes mellitus. The ROS documented in this emergency department record has been reviewed and confirmed by me. Those systems with pertinent positive or negative responses have been documented in the HPI. All other systems are other negative and/or noncontributory. - Related Data Home Medications Medication Instructions Recorded Confirmed Levothyroxine Sodium [Synthroid] 25 mcg PO HS 05/05/14 11/22/17 Simvastatin [Zocor] 20 mg PO HS 05/05/14 11/22/17 INSULIN LISPRO (humaLOG) [humaLOG] 10 unit SQ AC-LUNCH 08/02/16 11/22/17 Insulin NPL/Insulin Lispro 54 unit SQ AC-SUPPER 08/02/16 11/22/17 [humaLOG MIX 75-25 VIAL] Insulin NPL/Insulin Lispro 60 unit SQ AC-BRKFST 08/02/16 11/22/17 [humaLOG MIX 75-25 VIAL] Aspirin 325 mg PO DAILY 11/22/17 11/22/17 Ergocalciferol (Vitamin D2) 50,000 unit PO Q7D 11/22/17 11/22/17 [Vitamin D2] Multivitamins, Thera [Multivitamin 1 tab PO DAILY 11/22/17 11/22/17 (formulary)] Ramipril [Altace] 10 mg PO DAILY 11/22/17 11/22/17 Previous Rx's Medication Instructions Recorded metFORMIN HCL 1,000 mg PO BID #0 05/06/14 HYDROcodone/APAP 5-325MG [[place] 1 - 2 tab PO Q4-6H PRN #90 tab 08/05/16 5-325] Allergies Allergy/AdvReac Type Severity Reaction Status Date / Time No Known Allergies Allergy Verified 11/22/17 15:14 Review of Systems ROS Statement: Those systems with pertinent positive or pertinent negative responses have been documented in the HPI. ROS Other: All systems not noted in ROS Statement are negative. Past Medical History Past Medical History: Diabetes Mellitus, Hyperlipidemia, Hypertension, Thyroid Disorder Additional Past Medical History / Comment(s): AORTIC STENOSIS, prostate cancer History of Any Multi-Drug Resistant Organisms: None Reported Past Surgical History: Heart Catheterization, Hernia Repair, Prostate Surgery Additional Past Surgical History / Comment(s): COLON POLYPS. HEART CATH ON 05/06. Past Anesthesia/Blood Transfusion Reactions: No Reported Reaction Past Psychological History: No Psychological Hx Reported Smoking Status: Never smoker Past Alcohol Use History: Daily Past Drug Use History: None Reported - Past Family History Mother Family Medical History: No Reported History General Exam - General Exam Comments Initial Comments: PHYSICAL EXAM: General Impression: Alert and oriented x3, lethargic HEENT: Normocephalic atraumatic, extra-ocular movements intact, pupils equal and reactive to light bilaterally, dry mucous membranes Cardiovascular: Heart regular rate and rhythm, S1&S2 audible, no murmurs, rubs or gallops Chest: Lungs clear to auscultation bilaterally, no rhonchi, no wheeze, no rales , midline chest scar Abdomen: Bowel sounds present, abdomen soft, non-tender, non-distended, no organomegaly Musculoskeletal: Pulses present and equal in all extremities, no peripheral edema Motor: Moves all extremity is grossly Neurological: CN II-XII grossly intact, no focal motor or sensory deficits noted Skin: Intact with no visualized rashes Psych: Normal affect and mood Limitations: no limitations Course Vital Signs 11/22/17 11/22/17 11/22/17 14:37 14:39 15:05 Temperature 97.0 F L Pulse Rate 65 58 L Respiratory 18 Rate Blood Pressure 174/87 174/87 O2 Sat by Pulse 98 98 Oximetry 11/22/17 11/22/17 11/22/17 15:23 15:30 15:35 Temperature Pulse Rate 62 65 Respiratory Rate Blood Pressure 153/74 O2 Sat by Pulse Oximetry 11/22/17 11/22/17 11/22/17 15:45 15:48 16:00 Temperature Pulse Rate 73 68 72 Respiratory Rate Blood Pressure 198/80 187/91 O2 Sat by Pulse 100 Oximetry 11/22/17 11/22/17 16:15 16:30 Temperature Pulse Rate 75 79 Respiratory Rate Blood Pressure 190/91 204/102 O2 Sat by Pulse Oximetry Medical Decision Making - Medical Decision Making ED course: 82-year-old male presents with 3 days of generalized weakness. Vital signs upon arrival shows bradycardia 58 with a blood pressure of 153/74. Patient is not hypoxic. EKG shows peak T waves with widening QRS rhythm. There is clinical suspicion that patient's EKG findings are secondary to hyperkalemia. EKG was compared to EKG in 06/18/2014 showing no widening QRS or hyperacute T-wave appearance. Patient had findings consistent with severe hyperkalemia. Patient was given calcium 1 g, albuterol, dextrose, insulin and 2 A of bicarb. Patient was started on intravenous fluids.Monitor showed narrowing of QRS. Laboratory evaluation obtained. Leukocytosis of 12.7. Hemoglobin 11.0. Rest of CBC is unremarkable. Coag panel is unremarkable. Metabolic panel shows potassium 9.0. Chloride of 109, bicarb of 14. BUNs of 109, creatinine of 15.61. Glucose of 56. Lactic acidosis of 3.2. Calcium 7.8 , phosphorus is 8.9. Bilirubin of 1.4. Cranial sinuses 345. Patient was observed in emergency department for several hours with stable medical condition. Discussed patient case with outcomes manager Dr. Abarca who recommends facing patient on bicarb drip. Depending on repeat potassium level patient may be a candidate for urgent hemodialysis. At this point there is no clear etiology of patient's acute renal failure. Repeat EKG was obtained showing improvement. Repeat EKG showed QRS of 120, QTC of 477. There is still persistent peaked T waves. Patient to be admitted to intensive care unit. Mr. signout to Dr. Wilde for follow-up of repeat basic metabolic panel. Dr. Cottrell would like to be notified of patient's repeat basic metabolic panel. EKG Interpretation: A 12 lead EKG was obtained. It was interpreted by myself and attending physician. There is a P wave before every QRS complex. Rate is 60. Rhythm is wide QRS rhythm. QTc is 371. QRS 230. - Lab Data Result diagrams: 11/22/17 15:23 11/22/17 15:23 Lab Results 1011/22/17 11/22/17 Range/Units 15:05 15:23 15:23 WBC 12.7 H (3.8-10.6) k/uL RBC 4.05 L (4.30-5.90) m/uL Hgb 11.0 L (13.0-17.5) gm/dL Hct 33.7 L (39.0-53.0) % MCV 83.2 (80.0-100.0) fL MCH 27.1 (25.0-35.0) pg MCHC 32.5 (31.0-37.0) g/dL RDW 14.5 (11.5-15.5) % Plt Count 362 (150-450) k/uL Neutrophils % 89 % Lymphocytes % 3 % Monocytes % 6 % Eosinophils % 0 % Basophils % 0 % Neutrophils # 11.3 H (1.3-7.7) k/uL Lymphocytes # 0.4 L (1.0-4.8) k/uL Monocytes # 0.8 (0-1.0) k/uL Eosinophils # 0.0 (0-0.7) k/uL Basophils # 0.0 (0-0.2) k/uL PT (9.0-12.0) sec INR (<1.2) APTT (22.0-30.0) sec Sodium (137-145) mmol/L Potassium (3.5-5.1) mmol/L Chloride (98-107) mmol/L Carbon Dioxide (22-30) mmol/L Anion Gap mmol/L BUN (9-20) mg/dL Creatinine (0.66-1.25) mg/dL Est GFR (CKD-EPI)AfAm (>60 ml/min/1.73 sqM) Est GFR (CKD-EPI)NonAf (>60 ml/min/1.73 sqM) Glucose (74-99) mg/dL POC Glucose (mg/dL) 64 L (75-99) mg/dL POC Glu [employer] Operations Supervisor ID Plasma Lactic Acid Wilber (0.7-2.0) mmol/L Calcium (8.4-10.2) mg/dL Phosphorus (2.5-4.5) mg/dL Magnesium (1.6-2.3) mg/dL Total Bilirubin (0.2-1.3) mg/dL AST (17-59) U/L ALT (21-72) U/L Alkaline Phosphatase (38-126) U/L Total Creatine Kinase 345 H (55-170) U/L CK-MB (CK-2) 5.5 H (0.0-2.4) ng/mL CK-MB (CK-2) Rel Index 1.6 Troponin I 0.042 H* (0.000-0.034) ng/mL Total Protein (6.3-8.2) g/dL Albumin (3.5-5.0) g/dL TSH (0.465-4.680) mIU/L 11/22/17 11/22/17 11/22/17 Range/Units 15:23 15:23 15:23 WBC (3.8-10.6) k/uL RBC (4.30-5.90) m/uL Hgb (13.0-17.5) gm/dL Hct (39.0-53.0) % MCV (80.0-100.0) fL MCH (25.0-35.0) pg MCHC (31.0-37.0) g/dL RDW (11.5-15.5) % Plt Count (150-450) k/uL Neutrophils % % Lymphocytes % % Monocytes % % Eosinophils % % Basophils % % Neutrophils # (1.3-7.7) k/uL Lymphocytes # (1.0-4.8) k/uL Monocytes # (0-1.0) k/uL Eosinophils # (0-0.7) k/uL Basophils # (0-0.2) k/uL PT 10.7 (9.0-12.0) sec INR 1.1 (<1.2) APTT 22.3 (22.0-30.0) sec Sodium 142 (137-145) mmol/L Potassium 9.0 H* (3.5-5.1) mmol/L Chloride 109 H (98-107) mmol/L Carbon Dioxide 14 L (22-30) mmol/L Anion Gap 19 mmol/L BUN 109 H* (9-20) mg/dL Creatinine 15.61 H* (0.66-1.25) mg/dL Est GFR (CKD-EPI)AfAm 3 (>60 ml/min/1.73 sqM) Est GFR (CKD-EPI)NonAf 3 (>60 ml/min/1.73 sqM) Glucose 56 L (74-99) mg/dL POC Glucose (mg/dL) (75-99) mg/dL POC Glu [employer] Operations Supervisor ID Plasma Lactic Acid Wilber 3.2 H* (0.7-2.0) mmol/L Calcium 7.8 L (8.4-10.2) mg/dL Phosphorus 8.9 H (2.5-4.5) mg/dL Magnesium 2.3 (1.6-2.3) mg/dL Total Bilirubin 1.4 H (0.2-1.3) mg/dL AST 37 (17-59) U/L ALT 52 (21-72) U/L Alkaline Phosphatase 55 (38-126) U/L Total Creatine Kinase (55-170) U/L CK-MB (CK-2) (0.0-2.4) ng/mL CK-MB (CK-2) Rel Index Troponin I (0.000-0.034) ng/mL Total Protein 6.1 L (6.3-8.2) g/dL Albumin 3.3 L (3.5-5.0) g/dL TSH 3.180 (0.465-4.680) mIU/L 11/22/17 Range/Units 15:40 WBC (3.8-10.6) k/uL RBC (4.30-5.90) m/uL Hgb (13.0-17.5) gm/dL Hct (39.0-53.0) % MCV (80.0-100.0) fL MCH (25.0-35.0) pg MCHC (31.0-37.0) g/dL RDW (11.5-15.5) % Plt Count (150-450) k/uL Neutrophils % % Lymphocytes % % Monocytes % % Eosinophils % % Basophils % % Neutrophils # (1.3-7.7) k/uL Lymphocytes # (1.0-4.8) k/uL Monocytes # (0-1.0) k/uL Eosinophils # (0-0.7) k/uL Basophils # (0-0.2) k/uL PT (9.0-12.0) sec INR (<1.2) APTT (22.0-30.0) sec Sodium (137-145) mmol/L Potassium (3.5-5.1) mmol/L Chloride (98-107) mmol/L Carbon Dioxide (22-30) mmol/L Anion Gap mmol/L BUN (9-20) mg/dL Creatinine (0.66-1.25) mg/dL Est GFR (CKD-EPI)AfAm (>60 ml/min/1.73 sqM) Est GFR (CKD-EPI)NonAf (>60 ml/min/1.73 sqM) Glucose (74-99) mg/dL POC Glucose (mg/dL) 82 (75-99) mg/dL POC Glu [employer] Supervisor ID Ilene White Plasma Lactic Acid Wilber (0.7-2.0) mmol/L Calcium (8.4-10.2) mg/dL Phosphorus (2.5-4.5) mg/dL Magnesium (1.6-2.3) mg/dL Total Bilirubin (0.2-1.3) mg/dL AST (17-59) U/L ALT (21-72) U/L Alkaline Phosphatase (38-126) U/L Total Creatine Kinase (55-170) U/L CK-MB (CK-2) (0.0-2.4) ng/mL CK-MB (CK-2) Rel Index Troponin I (0.000-0.034) ng/mL Total Protein (6.3-8.2) g/dL Albumin (3.5-5.0) g/dL TSH (0.465-4.680) mIU/L Disposition Clinical Impression: Acute kidney injury, Hyperkalemia Disposition: ADMITTED IP TO THIS [facility] Condition: Critical Referrals: Jomar Rangel MD [Primary Care Provider] - 1-2 days Decision Time: 17:19
[2017-11-22 16:00] LABS: Basophils % (A) 0 %; Eosinophils % (A) 0 %; HCT 33.7 % (39.0-53.0); Lymphocytes # (A) 0.4 k/uL (1.0-4.8); Lymphocytes % (A) 3 %; MCH 27.1 pg (25.0-35.0); MCHC 32.5 g/dL (31.0-37.0); MCV 83.2 fL (80.0-100.0); Mean Platelet Volume 6.8; Monocytes # (A) 0.8 k/uL (0-1.0); Monocytes % (A) 6 %; Neutrophils # (A) 11.3 k/uL (1.3-7.7); Neutrophils % (A) 89 %; Platelet Count 362 k/uL (150-450); RBC 4.05 m/uL (4.30-5.90); RDW 14.5 % (11.5-15.5); WBC 12.7 k/uL (3.8-10.6)
[2017-11-22 16:13] LABS: Albumin 3.3 g/dL (3.5-5.0); Calcium 7.8 mg/dL (8.4-10.2); Magnesium 2.3 mg/dL (1.6-2.3); Phosphorus 8.9 mg/dL (2.5-4.5); Total Bilirubin 1.4 mg/dL (0.2-1.3); Total Protein 6.1 g/dL (6.3-8.2)
--- NOTE | 2017-11-22 16:14 | XR ---
EXAMINATION TYPE: XR chest 1V DATE OF EXAM: 11/22/2017 COMPARISON: Prior chest x-ray 08/08/2016 HISTORY: Weakness and shortness of breath TECHNIQUE: Single frontal view of the chest is obtained. FINDINGS: Patient is rotated and post median sternotomy. There are overlying cardiac leads. Heart siz e may be accentuated by technique. There is no focal air space opacity, pleural effusion, or pneumoth orax seen. Interstitium and central vascularity are prominent. The osseous structures are intact. IMPRESSION: Rotated expiratory exam. Correlate to exclude pulmonary venous hypertension and intersti tial edema. Follow-up as indicated.
[2017-11-22 16:15] LABS: INR 1.1 (<1.2); Partial Thromboplastin Time 22.3 sec (22.0-30.0); Prothrombin Time 10.7 sec (9.0-12.0)
[2017-11-22 16:27] LABS: Creatine Kinase MB 5.5 ng/mL (0.0-2.4)
[2017-11-22 16:32] LABS: Troponin I 0.042 ng/mL (0.000-0.034)
[2017-11-22] MEDS ORDERED: NALOXONE 0.4 MG/ML 1 ML VIAL IV PRN (17:16)
[2017-11-22] MEDS: DEXTROSE 5% IN WATER 1,000 ML with SODIUM BICARB (1 MEQ/ML) 150 ML IV SCH (17:31)
[2017-11-22 17:38] LABS: Appearance,Urine Turbid (Clear); Bacteria,Urine Rare /hpf; Bilirubin,Urine Negative (Negative); Blood,Urine Large (Negative); Calcium 7.8 mg/dL (8.4-10.2); Color,Urine Red; Glucose,Urine (UA) Negative (Negative); Ketones,Urine Negative (Negative); Leukocyte Esterase,Urine Trace (Negative); Nitrite,Urine Negative (Negative); Protein,Urine 3+ (Negative); RBC,Urine >182 /hpf (0-5); Urobilinogen,Urine <2.0 mg/dL (<2.0); WBC,Urine 78 /hpf (0-5)
[2017-11-22] MEDS ORDERED: INSULIN REGULAR 100 UNIT/ML VIAL IV STA (18:03)
[2017-11-22] MEDS ORDERED: DEXTROSE 50%-WATER 50 ML SYRINGE IVP STA (18:03)
[2017-11-22 19:08] LABS: Glucose,Whole Blood 91 mg/dL (75-99)
[2017-11-22] MEDS ORDERED: HYDROcodone/APAP 5-325MG 1 EACH TAB PO PRN (19:19)
[2017-11-22 21:00] LABS: Albumin 3.2 g/dL (3.5-5.0); Calcium 7.7 mg/dL (8.4-10.2); Total Bilirubin 1.4 mg/dL (0.2-1.3); Total Protein 5.8 g/dL (6.3-8.2)
[2017-11-22 21:06] LABS: Glucose,Whole Blood 61 mg/dL (75-99)
[2017-11-22 21:07] LABS: Potassium 7.9 mmol/L (3.5-5.1)
[2017-11-22] MEDS: CLEVIDIPINE BUTYRATE 25 MG in EMPTY BAG 1 BAG IV SCH (21:17)
[2017-11-22] MEDS: LEVOTHYROXINE 25 MCG TAB PO SCH (21:17)
[2017-11-22] MEDS: INSULIN ASPART 100 UNIT/ML 1 ML 10 ML VIAL SQ SCH (21:20)
[2017-11-22 21:41] LABS: Glucose,Whole Blood 83 mg/dL (75-99)
[2017-11-22 22:18] LABS: Glucose,Whole Blood 100 mg/dL (75-99)
[2017-11-23 00:22] LABS: Glucose,Whole Blood 104 mg/dL (75-99)
[2017-11-23 01:51] LABS: Potassium 5.3 mmol/L (3.5-5.1)
[2017-11-23 01:52] LABS: Calcium 7.7 mg/dL (8.4-10.2)
[2017-11-23] MEDS: DEXTROSE 5% IN WATER 1,000 ML with SODIUM BICARB (1 MEQ/ML) 150 ML IV SCH ×2 (03:25→16:47)
[2017-11-23] MEDS: CLEVIDIPINE BUTYRATE 25 MG in EMPTY BAG 1 BAG IV SCH ×2 (05:15→23:36)
[2017-11-23 05:49] LABS: Basophils % (A) 0 %; Eosinophils # (A) 0.1 k/uL (0-0.7); Eosinophils % (A) 1 %; HCT 29.8 % (39.0-53.0); HGB 9.8 gm/dL (13.0-17.5); Lymphocytes % (A) 11 %; MCH 26.7 pg (25.0-35.0); MCHC 32.8 g/dL (31.0-37.0); MCV 81.5 fL (80.0-100.0); Mean Platelet Volume 6.6; Monocytes # (A) 0.9 k/uL (0-1.0); Monocytes % (A) 10 %; Neutrophils # (A) 6.9 k/uL (1.3-7.7); Neutrophils % (A) 76 %; Platelet Count 351 k/uL (150-450); RBC 3.66 m/uL (4.30-5.90); RDW 14.7 % (11.5-15.5); WBC 9.1 k/uL (3.8-10.6)
[2017-11-23 06:17] LABS: Calcium 7.4 mg/dL (8.4-10.2); Potassium 5.8 mmol/L (3.5-5.1)
[2017-11-23] MEDS: INSULIN ASPART 100 UNIT/ML 1 ML 10 ML VIAL SQ SCH ×4 (06:55→21:05)
--- NOTE | 2017-11-23 07:05 | P.CRDCN ---
History of Present Illness Consult date: 11/23/17 Chief complaint: Weakness History of present illness: This is a pleasant 82-year-old gentleman who sees Dr. Meléndez in the office on regular basis with a past medical history significant for aortic valve disease and status post aortic valve replacement in 2013, obesity, hypertension, dyslipidemia, presented to the emergency room complaining of weakness. For the last several days, the patient has been struggling with diarrhea. For the last 24 hours he was feeling very weak and tired and almost losing his consciousness. Yesterday he was unable to walk at home because he was so fatigued and tired. He did not have any syncope. No symptoms of chest pain or chest discomfort. No fever or chills and no abdominal pain as well as. He presented to the emergency room where he was found to be in acute renal failure with a creatinine of 15 and also he was found to be hyperkalemic with a potassium of 9. The patient received an emergent dialysis yesterday with improvement of the creatinine today to 11 as well as in normalization of the potassium. The EKG upon presenting to the hospital showed wide QRS consistent with hyperkalemia and the subsequent EKG from this morning showed sinus rhythm with nonspecific changes and PVCs. The patient remained denies having any chest pain or chest discomfort. The troponin was checked and came in to be slightly abnormal. Giving the absence of any chest pain or discomfort, and the process of acute renal failure, I would consider a conservative medical approach and medical treatment only for the abnormal cardiac enzymes which is likely related to the acute renal failure. I am going to add aspirin as well as beta julee with metoprolol at 12.5 mg by mouth twice a day to control the blood pressure. We will obtain an echocardiogram was Doppler and we'll continue following up with the patient. Past Medical History Past Medical History: Cancer, Diabetes Mellitus, Hyperlipidemia, Hypertension, Prostate Disorder, Thyroid Disorder Additional Past Medical History / Comment(s): AORTIC STENOSIS, prostate cancer, past colon polyps History of Any Multi-Drug Resistant Organisms: None Reported Past Surgical History: Cardiac Valve Replacement, Heart Catheterization, Hernia Repair, Prostate Surgery, Tonsillectomy Additional Past Surgical History / Comment(s): COLON POLYPS. ariel cataracts, upper dental implants,prostatectomy, hernia repair. HEART CATH ON 05/06/2014. total rt knee replacement. 06-16-14 aortic valve replacement(tissue valve) Past Anesthesia/Blood Transfusion Reactions: No Reported Reaction Smoking Status: Never smoker - Past Family History Father Family Medical History: No Reported History Additional Family Medical History / Comment(s): age 92.5 years old- from old age Mother Family Medical History: Myocardial Infarction ([place]) Medications and Allergies Home Medications Medication Instructions Recorded Confirmed Type Levothyroxine Sodium [Synthroid] 25 mcg PO HS 05/05/14 11/22/17 History Simvastatin [Zocor] 20 mg PO HS 05/05/14 11/22/17 History metFORMIN HCL 1,000 mg PO BID #0 05/06/14 11/22/17 Rx INSULIN LISPRO (humaLOG) [humaLOG] 10 unit SQ AC-LUNCH 08/02/16 11/22/17 History Insulin NPL/Insulin Lispro 54 unit SQ AC-SUPPER 08/02/16 11/22/17 History [humaLOG MIX 75-25 VIAL] Insulin NPL/Insulin Lispro 60 unit SQ AC-BRKFST 08/02/16 11/22/17 History [humaLOG MIX 75-25 VIAL] HYDROcodone/APAP 5-325MG [[place] 1 - 2 tab PO Q4-6H PRN #90 tab 08/05/16 Rx 5-325] Aspirin 325 mg PO DAILY 11/22/17 11/22/17 History Ergocalciferol (Vitamin D2) 50,000 unit PO Q7D 11/22/17 11/22/17 History [Vitamin D2] Multivitamins, Thera [Multivitamin 1 tab PO DAILY 11/22/17 11/22/17 History (formulary)] Ramipril [Altace] 10 mg PO DAILY 11/22/17 11/22/17 History Allergies Allergy/AdvReac Type Severity Reaction Status Date / Time No Known Allergies Allergy Verified 11/22/17 15:14 Physical Exam Vitals: Vital Signs Temp Pulse Resp BP Pulse Ox 11/23/17 03:00 77 18 155/68 95 11/23/17 02:30 74 18 148/94 96 11/23/17 02:00 80 18 162/73 98 11/23/17 01:30 77 20 148/69 96 11/23/17 01:00 77 19 125/72 97 11/23/17 00:30 80 15 141/75 96 10/18/18 00:19 98.4 F 82 18 141/75 95 11/23/17 00:00 86 19 162/73 94 L 11/22/17 23:30 85 18 154/77 95 11/22/17 23:00 81 18 166/85 97 11/22/17 22:30 77 17 158/76 97 11/22/17 22:00 84 19 157/77 98 11/22/17 21:30 85 16 189/89 96 11/22/17 21:00 98.4 F 72 18 169/86 98 11/22/17 20:58 98 11/22/17 20:30 75 19 179/89 94 L 11/22/17 20:00 74 19 184/89 93 L 11/22/17 19:30 78 22 172/85 95 11/22/17 19:15 77 20 168/78 96 11/22/17 19:04 97.9 F 79 22 187/86 97 11/22/17 18:53 98 F 11/22/17 17:38 74 18 184/92 99 11/22/17 16:30 79 204/102 11/22/17 16:15 75 190/91 11/22/17 16:00 72 187/91 11/22/17 15:48 68 11/22/17 15:45 73 198/80 100 11/22/17 15:35 65 11/22/17 15:30 153/74 11/22/17 15:23 62 11/22/17 15:05 58 L 11/22/17 14:39 97.0 F L 65 18 174/87 98 11/22/17 14:37 174/87 98 Intake and Output 11/22/17 11/23/17 11/23/17 22:59 06:59 14:59 Intake Total 452.933 626 Output Total 55 30 Balance 397.933 596 Intake: IV 450 600 Dextrose 5% in Water 1, 450 600 000 ml @ 100 mls/hr IV . [id number] KELBY with Sodium Bicarb (1 Meq/ml) 150 ml Rx#:[id number] Intake, IV Titration 2.933 26 Amount Clevidipine Butyrate 25 2.933 26 mg In Empty Bag 1 bag @ 1 MG/HR 2 mls/hr IV .Q24H KELBY Rx#:[id number] Output: Urine 55 30 Other: Voiding Method Indwelling Catheter Indwelling Catheter Weight 123.2 kg - Constitutional General appearance: no acute distress - Respiratory Respiratory: bilateral: CTA - Cardiovascular Rhythm: regular Heart sounds: normal: S1, S2 Abnormal Heart Sounds: systolic murmur Results 11/23/17 05:04 11/23/17 05:04 Cardiac Enzymes 11/22/17 11/22/17 11/22/17 Range/Units 15:23 15:23 20:08 AST 37 35 (17-59) U/L CK-MB (CK-2) 5.5 H (0.0-2.4) ng/mL Troponin I 0.042 H* (0.000-0.034) ng/mL 11/22/17 11/23/17 Range/Units 20:08 01:07 AST (17-59) U/L CK-MB (CK-2) (0.0-2.4) ng/mL Troponin I 0.053 H* 0.059 H* (0.000-0.034) ng/mL Coagulation 11/22/17 Range/Units 15:23 PT 10.7 (9.0-12.0) sec APTT 22.3 (22.0-30.0) sec CBC 11/22/17 11/23/17 Range/Units 15:23 05:04 WBC 12.7 H 9.1 (3.8-10.6) k/uL RBC 4.05 L 3.66 L (4.30-5.90) m/uL Hgb 11.0 L 9.8 L (13.0-17.5) gm/dL Hct 33.7 L 29.8 L (39.0-53.0) % Plt Count 362 351 (150-450) k/uL Comprehensive Metabolic Panel 11/22/17 11/22/17 11/22/17 Range/Units 15:23 16:50 20:08 Sodium 142 142 143 (137-145) mmol/L Potassium 9.0 H* 8.0 H* 7.9 H* (3.5-5.1) mmol/L Chloride 109 H 110 H 110 H (98-107) mmol/L Carbon Dioxide 14 L 12 L 14 L (22-30) mmol/L BUN 109 H* 106 H* 111 H* (9-20) mg/dL Creatinine 15.61 H* 15.27 H* 15.38 H* (0.66-1.25) mg/dL Glucose 56 L 55 L 49 L* (74-99) mg/dL Calcium 7.8 L 7.8 L 7.7 L (8.4-10.2) mg/dL AST 37 35 (17-59) U/L ALT 52 46 (21-72) U/L Alkaline Phosphatase 55 54 (38-126) U/L Total Protein 6.1 L 5.8 L (6.3-8.2) g/dL Albumin 3.3 L 3.2 L (3.5-5.0) g/dL 11/23/17 11/23/17 Range/Units 01:07 05:04 Sodium 140 140 (137-145) mmol/L Potassium 5.3 H 5.8 H (3.5-5.1) mmol/L Chloride 104 102 (98-107) mmol/L Carbon Dioxide 20 L 22 (22-30) mmol/L BUN 78 H 82 H (9-20) mg/dL Creatinine 11.22 H* 11.24 H* (0.66-1.25) mg/dL Glucose 97 101 H (74-99) mg/dL Calcium 7.7 L 7.4 L (8.4-10.2) mg/dL AST (17-59) U/L ALT (21-72) U/L Alkaline Phosphatase (38-126) U/L Total Protein (6.3-8.2) g/dL Albumin (3.5-5.0) g/dL Current Medications Generic Name Dose Route Start Last Admin Trade Name Freq PRN Reason Stop Dose Admin Hydrocodone Bitart/Acetaminophen 1 each 11/22/17 19:19 [place] 5-325 PO Q4HR PRN Moderate Pain Aspirin 81 mg 11/23/17 09:00 Aspirin PO DAILY [facility] Enoxaparin Sodium 40 mg 11/23/17 09:00 Lovenox SQ DAILY [facility] Sodium Bicarbonate 150 ml/ 1,150 mls @ 100 mls/hr 11/22/17 16:45 11/23/17 03: 25 Dextrose/Water IV 100 mls/hr .[id number] KELBY Administration Clevidipine 25 mg/ IV Solution 50 mls @ 2 mls/hr 11/22/17 21:15 11/23/17 05: 15 IV 2 mg/hr .Q24H KELBY 4 mls/hr Administration Protocol 1 MG/HR Insulin Aspart 0 unit 11/22/17 21:00 11/23/17 06:55 Novolog SQ Not Given ACHS KELBY Protocol Levothyroxine Sodium 25 mcg 11/22/17 21:00 11/22/17 21:17 Synthroid PO 25 mcg HS KELBY Administration Metoprolol Tartrate 12.5 mg 11/23/17 09:00 Lopressor PO BID KELBY Naloxone HCl 0.2 mg 11/22/17 17:16 Narcan IV Q2M PRN Opioid Reversal Pantoprazole Sodium 40 mg 11/23/17 09:00 Protonix PO AC-BRKFST KELBY Intake and Output 11/22/17 11/23/17 11/23/17 22:59 06:59 14:59 Intake Total 452.933 626 Output Total 55 30 Balance 397.933 596 Intake: IV 450 600 Dextrose 5% in Water 1, 450 600 000 ml @ 100 mls/hr IV . [id number] KELBY with Sodium Bicarb (1 Meq/ml) 150 ml Rx#:[id number] Intake, IV Titration 2.933 26 Amount Clevidipine Butyrate 25 2.933 26 mg In Empty Bag 1 bag @ 1 MG/HR 2 mls/hr IV .Q24H KELBY Rx#:[id number] Output: Urine 55 30 Other: Voiding Method Indwelling Catheter Indwelling Catheter Weight 123.2 kg 11/23/17 05:04 11/23/17 05:04 Assessment and Plan Assessment: Assessment #1 acute renal failure likely to be prerenal and related to hypovolemia #2 hyperkalemia secondary to acute renal failure #3 diarrhea of unknown etiology #4 status post aortic valve replacement #5 mildly abnormal cardiac enzymes #6 hypertension #7 dyslipidemia Plan #1 I would consider a conservative medical approach for the mildly abnormal cardiac enzymes, giving the absence of chest pain and discomfort and the process of acute renal failure at this point #2 I am going to restart the patient on aspirin #2 start the patient on small dose of metoprolol at 12.5 mg by mouth twice a day to control the blood pressure #3 obtain an echocardiogram was Doppler #4 follow-up with the patient. Thank you for allowing us participate in his care and we will continue following up with the patient
[2017-11-23 07:08] LABS: Glucose,Whole Blood 122 mg/dL (75-99)
[2017-11-23 08:12] LABS: Glucose,Whole Blood 144 mg/dL (75-99)
[2017-11-23] MEDS ORDERED: LISINOPRIL 20 MG TAB PO SCH (09:00)
[2017-11-23] MEDS ORDERED: ENOXAPARIN 40 MG/0.4 ML SYRINGE SQ SCH (09:00)
--- NOTE | 2017-11-23 09:04 | US ---
EXAMINATION TYPE: US kidneys/renal and bladder DATE OF EXAM: 11/23/2017 COMPARISON: NONE CLINICAL HISTORY: 82-year-old male KIRBY TECHNIQUE: Multiple sonographic images of the kidneys and bladder are obtained. FINDINGS: Pediatric Psychiatrist notes: Technical limitations due to patients body habitus and large amount of overlyin g bowel content EXAM MEASUREMENTS: Right Kidney: 13.1 x 5.7 x 6.5 cm Left Kidney: 11.9 x 6.6 x 5.8 cm Right Kidney: No hydronephrosis. Cystic area lateral = 3.5 x 3.1 x 3.3cm Left Kidney: limited evaluation, visualized portions show no evidence of hydronephrosis Bladder: Hoang Catheter IMPRESSION: No hydronephrosis. 3.5 cm benign cyst on the right.
[2017-11-23] MEDS: METOPROLOL TARTRATE 12.5 MG TAB PO SCH ×2 (09:07→22:23)
[2017-11-23] MEDS: ASPIRIN 81 MG PO SCH (09:07)
[2017-11-23] MEDS: PANTOPRAZOLE 40 MG TABLET PO SCH (09:18)
[2017-11-23 09:26] LABS: Hemoglobin A1C 7.8 % (4.0-6.0)
[2017-11-23] MEDS ORDERED: hydrALAZINE HCL 20 MG/ML 1 ML VIAL IVP PRN (09:35)
--- NOTE | 2017-11-23 09:42 | P.CNPUL ---
History of Present Illness Consult date: 11/23/17 Reason for consult: other Chief complaint: Renal failure, acute kidney injury, hyperkalemia, questionable UTI. History of present illness: Pulmonary consult dated 11/23/2017 This is an 82-year-old male who presented to the emergency department with generalized weakness. He was seen on November 22, yesterday. I was actually called by the ER physician about this patient. This is an 82-year-old male states for the last 3 or 4 days prior to admission he developed profound weakness. He was barely able to walk. For that reason the patient came in to be evaluated. He does have a history of diabetes mellitus hyperlipidemia and hypertension. He also apparently has a history of [place] aortic valve replacement and coronary artery disease. He was found to have profound acute kidney injury with an elevated BUN and creatinine and severe hyperkalemia 7.9. His urine was suspicious for bladder infection. He's never had anything like this before. The patient also has a history of hyperlipidemia. Currently, the patient is receiving oxygen at 2 L. He had emergent hemodialysis last night for the hyperkalemia. His chest x-ray shows mild fluid overload. In addition, the patient's getting a dextrose IV with 3 A of sodium bicarbonate at 100 mL an hour and is receiving Cleveprex at 2 mg an hour. Currently, his white count is 9.1 hemoglobin 9.8 hematocrit 29.8 and platelet count 351,000. In addition, his sodium is 140 potassium is 5.8 chloride is 102 CO2 22 BUN 82 and creatinine 11.24. Review of Systems A 14 point review of system is positive for profound weakness. Other than that , the patient really does not have any other complaints. Past Medical History Past Medical History: Cancer, Diabetes Mellitus, Hyperlipidemia, Hypertension, Prostate Disorder, Thyroid Disorder Additional Past Medical History / Comment(s): AORTIC STENOSIS, prostate cancer, past colon polyps History of Any Multi-Drug Resistant Organisms: None Reported Past Surgical History: Cardiac Valve Replacement, Heart Catheterization, Hernia Repair, Prostate Surgery, Tonsillectomy Additional Past Surgical History / Comment(s): COLON POLYPS. ariel cataracts, upper dental implants,prostatectomy, hernia repair. HEART CATH ON 05/06/2014. total rt knee replacement. 06-16-14 aortic valve replacement(tissue valve) Past Anesthesia/Blood Transfusion Reactions: No Reported Reaction Smoking Status: Never smoker - Past Family History Father Family Medical History: No Reported History Additional Family Medical History / Comment(s): age 92.5 years old- from old age Mother Family Medical History: Myocardial Infarction ([place]) Medications and Allergies Home Medications Medication Instructions Recorded Confirmed Type Levothyroxine Sodium [Synthroid] 25 mcg PO HS 05/05/14 11/22/17 History Simvastatin [Zocor] 20 mg PO HS 05/05/14 11/22/17 History metFORMIN HCL 1,000 mg PO BID #0 05/06/14 11/22/17 Rx INSULIN LISPRO (humaLOG) [humaLOG] 10 unit SQ AC-LUNCH 08/02/16 11/22/17 History Insulin NPL/Insulin Lispro 54 unit SQ AC-SUPPER 08/02/16 11/22/17 History [humaLOG MIX 75-25 VIAL] Insulin NPL/Insulin Lispro 60 unit SQ AC-BRKFST 08/02/16 11/22/17 History [humaLOG MIX 75-25 VIAL] HYDROcodone/APAP 5-325MG [[place] 1 - 2 tab PO Q4-6H PRN #90 tab 08/05/16 Rx 5-325] Aspirin 325 mg PO DAILY 11/22/17 11/22/17 History Ergocalciferol (Vitamin D2) 50,000 unit PO Q7D 11/22/17 11/22/17 History [Vitamin D2] Multivitamins, Thera [Multivitamin 1 tab PO DAILY 11/22/17 11/22/17 History (formulary)] Ramipril [Altace] 10 mg PO DAILY 11/22/17 11/22/17 History Allergies Allergy/AdvReac Type Severity Reaction Status Date / Time No Known Allergies Allergy Verified 11/22/17 15:14 Physical Exam Osteopathic Statement: *. No significant issues noted on an osteopathic structural exam other than those noted in the History and Physical/Consult. Vitals: Vital Signs Temp Pulse Resp BP Pulse Ox 11/23/17 07:00 75 18 135/68 96 11/23/17 06:30 73 18 148/65 97 11/23/17 06:00 76 19 148/75 95 11/23/17 05:30 75 18 144/66 95 11/23/17 05:00 75 18 147/74 96 10/18/18 04:30 80 16 147/72 96 10/18/18 04:00 98.1 F 76 14 148/76 95 1018/18 03:30 78 16 144/78 95 1018/18 03:00 77 18 155/68 95 1018/18 02:30 74 18 148/94 96 18/18 02:00 80 18 162/73 98 18/18 01:30 77 20 148/69 96 1018/18 01:00 77 19 125/72 97 18/18 00:30 80 15 141/75 96 1018/18 00:19 98.4 F 82 18 141/75 95 18/18 00:00 86 19 162/73 94 L 17/18 23:30 85 18 154/77 95 17/18 23:00 81 18 166/85 97 17/18 22:30 77 17 158/76 97 17/18 22:00 84 19 157/77 98 17/18 21:30 85 16 189/89 96 18 21:00 98.4 F 72 18 169/86 98 11/22/18 20:58 98 17/18 20:30 75 19 179/89 94 L 18 20:00 74 19 184/89 93 L 17/18 19:30 78 22 172/85 95 17/18 19:15 77 20 168/78 96 11/22/18 19:04 97.9 F 79 22 187/86 97 17/18 18:53 98 F 17/18 17:38 74 18 184/92 99 17/18 16:30 79 204/102 17/18 16:15 75 190/91 17/18 16:00 72 187/91 17/18 15:48 68 17/18 15:45 73 198/80 100 17/18 15:35 65 1017/18 15:30 153/74 1017/18 15:23 62 17/18 15:05 58 L 17/18 14:39 97.0 F L 65 18 174/87 98 18 14:37 174/87 98 Intake and Output 17/18 1011/23/17 22:59 06:59 14:59 Intake Total 509.691 6452 280 Output Total 55 44 35 Balance 205.006 9604 245 Intake: IV 450 1100 200 Dextrose 5% in Water 1, 450 1100 200 000 ml @ 100 mls/hr IV . [id number] KELBY with Sodium Bicarb (1 Meq/ml) 150 ml Rx#:[id number] Intake, IV Titration 2.933 26 Amount Clevidipine Butyrate 25 2.933 26 mg In Empty Bag 1 bag @ 1 MG/HR 2 mls/hr IV .Q24H KELBY Rx#:[id number] Oral 80 Output: Urine 55 44 35 Other: Voiding Method Indwelling Catheter Indwelling Catheter Weight 123.2 kg No acute distress, oriented 3. Nasal O2 in place. HEENT examination is grossly unremarkable. Mucous membranes are moist. No oral lesions. Neck supple. Full range of motion. No adenopathy thyromegaly or neck vein distention. Cardiovascular examination reveals regular rhythm rate. S1-S2 normal. No S3 or S4. No discernible murmur noted. Lungs reveal mostly clear breath sounds. Her sounds are equal bilaterally. No wheezes or rhonchi. There are some bibasilar minimal crackles. Abdomen soft bowel sounds are heard. No masses or tenderness. Extremities are intact. No cyanosis clubbing or edema. Skin is without rash or lesion. Neurologic examination is brief but nonfocal. Results - Laboratory Findings CBC and BMP: 11/23/17 05:04 11/23/17 05:04 PT/INR, D-dimer PT 10.7 sec (9.0-12.0) 11/22/17 15:23 INR 1.1 (<1.2) 11/22/17 15:23 Abnormal lab findings: Abnormal Labs 11/22/17 11/22/17 11/22/17 15:05 15:23 15:23 WBC 12.7 H RBC 4.05 L Hgb 11.0 L Hct 33.7 L Neutrophils # 11.3 H Lymphocytes # 0.4 L Potassium Chloride Carbon Dioxide BUN Creatinine Glucose POC Glucose (mg/dL) 64 L Hemoglobin A1c Plasma Lactic Acid Wilber Calcium Phosphorus Total Bilirubin Total Creatine Kinase 345 H CK-MB (CK-2) 5.5 H Troponin I 0.042 H* Total Protein Albumin Urine Protein Urine Blood Ur Leukocyte Esterase Urine RBC Urine WBC Urine WBC Clumps Urine Bacteria 11/22/17 11/22/17 11/22/17 15:23 15:23 16:50 WBC RBC Hgb Hct Neutrophils # Lymphocytes # Potassium 9.0 H* 8.0 H* Chloride 109 H 110 H Carbon Dioxide 14 L 12 L BUN 109 H* 106 H* Creatinine 15.61 H* 15.27 H* Glucose 56 L 55 L POC Glucose (mg/dL) Hemoglobin A1c Plasma Lactic Acid Wilber 3.2 H* Calcium 7.8 L 7.8 L Phosphorus 8.9 H Total Bilirubin 1.4 H Total Creatine Kinase CK-MB (CK-2) Troponin I Total Protein 6.1 L Albumin 3.3 L Urine Protein Urine Blood Ur Leukocyte Esterase Urine RBC Urine WBC Urine WBC Clumps Urine Bacteria 11/22/17 11/22/17 11/22/17 16:50 20:08 20:08 WBC RBC Hgb Hct Neutrophils # Lymphocytes # Potassium Chloride Carbon Dioxide BUN Creatinine Glucose POC Glucose (mg/dL) Hemoglobin A1c 7.8 H Plasma Lactic Acid Wilber 2.9 H* Calcium Phosphorus Total Bilirubin Total Creatine Kinase CK-MB (CK-2) Troponin I Total Protein Albumin Urine Protein 3+ H Urine Blood Large H Ur Leukocyte Esterase Trace H Urine RBC >182 H Urine WBC 78 H Urine WBC Clumps Many H Urine Bacteria Rare H 11/22/17 11/22/17 11/22/17 20:08 20:08 20:55 WBC RBC Hgb Hct Neutrophils # Lymphocytes # Potassium 7.9 H* Chloride 110 H Carbon Dioxide 14 L BUN 111 H* Creatinine 15.38 H* Glucose 49 L* POC Glucose (mg/dL) 61 L Hemoglobin A1c Plasma Lactic Acid Wilber Calcium 7.7 L Phosphorus Total Bilirubin 1.4 H Total Creatine Kinase CK-MB (CK-2) Troponin I 0.053 H* Total Protein 5.8 L Albumin 3.2 L Urine Protein Urine Blood Ur Leukocyte Esterase Urine RBC Urine WBC Urine WBC Clumps Urine Bacteria 11/22/17 11/23/17 11/23/17 22:06 00:11 01:07 WBC RBC Hgb Hct Neutrophils # Lymphocytes # Potassium Chloride Carbon Dioxide BUN Creatinine Glucose POC Glucose (mg/dL) 100 H 104 H Hemoglobin A1c Plasma Lactic Acid Wilber Calcium Phosphorus Total Bilirubin Total Creatine Kinase CK-MB (CK-2) Troponin I 0.059 H* Total Protein Albumin Urine Protein Urine Blood Ur Leukocyte Esterase Urine RBC Urine WBC Urine WBC Clumps Urine Bacteria 11/23/17 11/23/17 11/23/17 01:07 05:04 05:04 WBC RBC 3.66 L Hgb 9.8 L Hct 29.8 L Neutrophils # Lymphocytes # Potassium 5.3 H 5.8 H Chloride Carbon Dioxide 20 L BUN 78 H 82 H Creatinine 11.22 H* 11.24 H* Glucose 101 H POC Glucose (mg/dL) Hemoglobin A1c Plasma Lactic Acid Wilber Calcium 7.7 L 7.4 L Phosphorus 8.0 H Total Bilirubin Total Creatine Kinase CK-MB (CK-2) Troponin I Total Protein Albumin Urine Protein Urine Blood Ur Leukocyte Esterase Urine RBC Urine WBC Urine WBC Clumps Urine Bacteria 11/23/17 11/23/17 06:54 08:01 WBC RBC Hgb Hct Neutrophils # Lymphocytes # Potassium Chloride Carbon Dioxide BUN Creatinine Glucose POC Glucose (mg/dL) 122 H 144 H Hemoglobin A1c Plasma Lactic Acid Wilber Calcium Phosphorus Total Bilirubin Total Creatine Kinase CK-MB (CK-2) Troponin I Total Protein Albumin Urine Protein Urine Blood Ur Leukocyte Esterase Urine RBC Urine WBC Urine WBC Clumps Urine Bacteria - Diagnostic Findings Chest x-ray: report reviewed, image reviewed (Chest x-ray, labs, and medications are reviewed.) Assessment and Plan Assessment: Assessment Acute kidney injury with profound hyperkalemia, causing profound weakness and EKG changes. Emergent hemodialysis for symptomatic hyperkalemia History of CAD History of diabetes History of hypertension History of hyperlipidemia History of prostate cancer, status post prostatectomy Status post aortic valve replacement for aortic stenosis History of hypothyroidism Plan: Plan dated 11/23/2017 The patient received emergent hemodialysis last night. His current potassium is 5.8. His BUN is 82 and creatinine is 11.24. His hemoglobin is only 9.8 suggesting that there may be some chronicity to his renal insufficiency/ failure. Patient is feeling better today. He has a substantial history of aortic stenosis requiring aortic valve replacement done by Dr. Nazario years ago. In addition, he suffers from hypothyroidism, hyperlipidemia, hypertension , and diabetes mellitus. We will continue to follow carefully. Additional recommendations and suggestions are forthcoming. Prognosis is guarded. He remains on nasal O2. He remains on a D5W IV with 3 Amps of sodium bicarbonate at 100 mL an hour and Cleveprex 2 mg an hour. He was on Altace at home as his blood pressure medication and we will resume that here in the hospital. Critical care time 34 minutes Time with Patient: Greater than 30
--- NOTE | 2017-11-23 09:59 | CONS ---
CONSULTATION This is an 82-year-old gentleman who came to the ER with generalized weakness with hyperkalemia and he had a BUN of 109, creatinine was 3.61. I was consulted for urgent dialysis catheter placement. MEDICAL HISTORY: History of diabetes mellitus, hyperlipidemia, hypertension, thyroid disorder. SURGICAL HISTORY: Patient had a heart catheterization, a hernia repair and prostate surgery in the past. No history of smoking. PHYSICAL EXAMINATION: Patient was seen in intensive care unit. NECK: Supple, trachea central. CHEST: Clear to auscultation. ABDOMEN: Soft. Normal motor function. Femoral pulses are present. PLAN: Placement of a dialysis catheter. Risks and complications discussed. MMODL / IJN: [id number] /
--- NOTE | 2017-11-23 10:01 | P.NPCON ---
History of Present Illness - Reason for Consult acute renal failure, hyperkalemia - History of Present Illness Reason for consultation: Acute kidney injury and hyperkalemia History of present illness: Patient is a 82-year-old male seen in renal consultation for acute kidney injury and hyperkalemia. Patient's potassium level was 9 and creatinine was 15.61 on admission. Patient's baseline creatinine appears to be near 1. Patient presented to the hospital with generalized weakness. Patient states he was unable to stand. He does admit to diarrhea for the last few days. No vomiting. Denies chest pain or shortness of breath. He does have history of diabetes mellitus and was taking metformin as well as insulin. He was also on ramipril for blood pressure control. He was noted to be acidotic with a bicarbonate level of 14. Despite medical treatment he remained persistently hyperkalemic and underwent hemodialysis yesterday. Potassium level this morning is 5.8. Urine output overnight has been about 5 mL an hour in the last 2 hours he has made about 10-20 mL of urine. He is awake and alert. He does admit to taking Aleve on a daily basis. Denies any prior history of kidney disease. Denies family history of renal disease. Vital signs are stable. General: The patient appeared well nourished and normally developed. HEENT: Head exam is unremarkable. Neck is without jugular venous distension. LUNGS: Lungs are clear to auscultation and percussion. Breath sounds decreased. HEART: Rate and Rhythm are regular. First and second heart sounds normal. No murmurs, rubs or gallops. ABDOMEN: Abdominal exam reveals normal bowel sounds. Non-tender and non- distended. No evidence of peritonitis. EXTREMITITES: No clubbing, cyanosis, or edema. Past Medical History Past Medical History: Cancer, Diabetes Mellitus, Hyperlipidemia, Hypertension, Prostate Disorder, Thyroid Disorder Additional Past Medical History / Comment(s): AORTIC STENOSIS, prostate cancer, past colon polyps History of Any Multi-Drug Resistant Organisms: None Reported Past Surgical History: Cardiac Valve Replacement, Heart Catheterization, Hernia Repair, Prostate Surgery, Tonsillectomy Additional Past Surgical History / Comment(s): COLON POLYPS. ariel cataracts, upper dental implants,prostatectomy, hernia repair. HEART CATH ON 05/06/2014. total rt knee replacement. 06-16-14 aortic valve replacement(tissue valve) Past Anesthesia/Blood Transfusion Reactions: No Reported Reaction Smoking Status: Never smoker - Past Family History Father Family Medical History: No Reported History Additional Family Medical History / Comment(s): age 92.5 years old- from old age Mother Family Medical History: Myocardial Infarction ([place]) Medications and Allergies Home Medications Medication Instructions Recorded Confirmed Type Levothyroxine Sodium [Synthroid] 25 mcg PO HS 05/05/14 11/22/17 History Simvastatin [Zocor] 20 mg PO HS 05/05/14 11/22/17 History metFORMIN HCL 1,000 mg PO BID #0 05/06/14 11/22/17 Rx INSULIN LISPRO (humaLOG) [humaLOG] 10 unit SQ AC-LUNCH 08/02/16 11/22/17 History Insulin NPL/Insulin Lispro 54 unit SQ AC-SUPPER 08/02/16 11/22/17 History [humaLOG MIX 75-25 VIAL] Insulin NPL/Insulin Lispro 60 unit SQ AC-BRKFST 08/02/16 11/22/17 History [humaLOG MIX 75-25 VIAL] HYDROcodone/APAP 5-325MG [[place] 1 - 2 tab PO Q4-6H PRN #90 tab 08/05/16 Rx 5-325] Aspirin 325 mg PO DAILY 11/22/17 11/22/17 History Ergocalciferol (Vitamin D2) 50,000 unit PO Q7D 11/22/17 11/22/17 History [Vitamin D2] Multivitamins, Thera [Multivitamin 1 tab PO DAILY 11/22/17 11/22/17 History (formulary)] Ramipril [Altace] 10 mg PO DAILY 11/22/17 11/22/17 History Allergies Allergy/AdvReac Type Severity Reaction Status Date / Time No Known Allergies Allergy Verified 11/22/17 15:14 Physical Exam Vitals: Vital Signs Temp Pulse Resp BP Pulse Ox 11/23/17 07:00 75 18 135/68 96 11/23/17 06:30 73 18 148/65 97 11/23/17 06:00 76 19 148/75 95 11/23/17 05:30 75 18 144/66 95 11/23/17 05:00 75 18 147/74 96 11/23/17 04:30 80 16 147/72 96 10/18/18 04:00 98.1 F 76 14 148/76 95 1018/18 03:30 78 16 144/78 95 1018/18 03:00 77 18 155/68 95 1018/18 02:30 74 18 148/94 96 1018/18 02:00 80 18 162/73 98 1018/18 01:30 77 20 148/69 96 1018/18 01:00 77 19 125/72 97 1018/18 00:30 80 15 141/75 96 1018/18 00:19 98.4 F 82 18 141/75 95 18/18 00:00 86 19 162/73 94 L 17/18 23:30 85 18 154/77 95 17/18 23:00 81 18 166/85 97 17/18 22:30 77 17 158/76 97 17/18 22:00 84 19 157/77 98 17/18 21:30 85 16 189/89 96 17/18 21:00 98.4 F 72 18 169/86 98 17/18 20:58 98 17/18 20:30 75 19 179/89 94 L 17/18 20:00 74 19 184/89 93 L 17/18 19:30 78 22 172/85 95 17/18 19:15 77 20 168/78 96 17/18 19:04 97.9 F 79 22 187/86 97 17/18 18:53 98 F 1718 17:38 74 18 184/92 99 17/18 16:30 79 204/102 17/18 16:15 75 190/91 17/18 16:00 72 187/91 17/18 15:48 68 1017/18 15:45 73 198/80 100 17/18 15:35 65 1017/18 15:30 153/74 1017/18 15:23 62 1017/18 15:05 58 L 17/18 14:39 97.0 F L 65 18 174/87 98 17/18 14:37 174/87 98 Intake and Output 11/22/18 1018/18 18/18 22:59 06:59 14:59 Intake Total 170.225 0453 297.667 Output Total 55 44 35 Balance 590.484 1644 262.667 Intake: IV 450 1100 200 Dextrose 5% in Water 1, 450 1100 200 000 ml @ 100 mls/hr IV . [id number] KELBY with Sodium Bicarb (1 Meq/ml) 150 ml Rx#:[id number] Intake, IV Titration 2.933 26 17.667 Amount Clevidipine Butyrate 25 2.933 26 17.667 mg In Empty Bag 1 bag @ 1 MG/HR 2 mls/hr IV .Q24H KELBY Rx#:[id number] Oral 80 Output: Urine 55 44 35 Other: Voiding Method Indwelling Catheter Indwelling Catheter Weight 123.2 kg Results - Lab Results Most recent lab results Calcium 7.4 mg/dL (8.4-10.2) L 11/23/17 05:04 Phosphorus 8.0 mg/dL (2.5-4.5) H 11/23/17 05:04 Magnesium 2.0 mg/dL (1.6-2.3) 11/23/17 05:04 11/23/17 05:04 11/23/17 05:04 Assessment and Plan Plan: Assessment: 1. Acute kidney injury secondary to ATN secondary to intravascular volume depletion from diarrhea and use of JEANMARIE inhibitor and nonsteroidals. Creatinine 15.6 on admission. Baseline creatinine is near 1. No evidence of hydronephrosis noted on renal ultrasound. 2. Severe hyperkalemia secondary to ramipril, acute kidney injury and metabolic acidosis. Improved postdialysis. 3. Metabolic acidosis secondary to acute kidney injury. Patient also on metformin. 4. Insulin-dependent diabetes mellitus. 5. Pyuria. 6. Benign hypertension. Controlled. Plan: I will decrease the rate of bicarbonate drip to 75 mL an hour. Avoid nephrotoxins. Continue to hold JEANMARIE inhibitor and metformin for now. Add hydralazine 50 mg 3 times daily. Second treatment of hemodialysis today. Continue to monitor renal function and urine output closely. Check urine culture. Thank you for the consultation. I will continue to follow the patient with you during his hospital stay.
--- NOTE | 2017-11-23 10:05 | PCN ---
PROCEDURE NOTE PREOPERATIVE DIAGNOSIS: Acute renal failure with hyperkalemia. PROCEDURE: A 15 cm dialysis catheter placed with the right femoral approach. Patient was seen in the intensive care unit. Right groin were prepped and draped in a sterile manner; 1% lidocaine were introduced in the groin, micropuncture introduced right common femoral vein and micropuncture guidewire was passed and 4 Lao dilator on the top of the guidewire. Then we passed a regular guidewire and dilator was advanced on the top of the guidewire. Then, 15 cm dialysis catheter placed. There was good flow noted, flushed with heparin saline and hep-locked and secured with 3-0 nylon. Dressing applied. Patient tolerated the procedure well. MMODL / IJN: [id number] /
--- NOTE | 2017-11-23 10:27 | ECHOF ---
Referral Reason:cardiac hx MEASUREMENTS -------- HEIGHT: 180.3 cm WEIGHT: 122.9 kg BP: 155/68 IVSd: 1.2 cm (0.6 - 1.1) LVIDd: 4.2 cm (3.9 - 5.3) LVPWd: 1.2 cm (0.6 - 1.1) IVSs: 2.3 cm LVIDs: 1.7 cm LVPWs: 1.8 cm LAESV Index (A-L): 37.20 ml/m Ao Diam: 2.7 cm (2.0 - 3.7) LA Diam: 4.0 cm (2.7 - 3.8) MV EXCURSION: 14.751 mm (> 18.000) MV EF SLOPE: 69 mm/s (70 - 150) EPSS: 0.4 cm MV E Richard: 1.44 m/s MV DecT: 228 ms MV A Richard: 0.89 m/s MV E/A Ratio: 1.63 AV maxP.30 mmHg AV meanP.02 mmHg RAP: 5.00 mmHg RVSP: 37.67 mmHg FINDINGS -------- Sinus rhythm. This was a technically difficult study with suboptimal views. The left ventricular size is normal. There is mild concentric left ventricular hypertrophy. Overa ll left ventricular systolic function is normal with, an EF between 55 - 60 %. The right ventricle is normal in size and function. LA is moderately dilated 34-39 ml/m2 The right atrium is normal in size. Lumason used Peak/mean gradient across the Aortic Valve is 30.30mmHg / 18.02mmHg. Normally functioning bioprosth etic valve. The mitral valve leaflets are moderately thickened. Moderate mitral annular calcification present. Mild mitral regurgitation is present. The peak and mean MV gradients are 10.89mmHg 3.67mmHg as m easured by doppler. Mild tricuspid regurgitation present. There is mild pulmonary hypertension. The right ventricular systolic pressure, as measured by Doppler, is 37.67mmHg. Pulmonic valve appears structurally normal. The aortic root size is normal. The pericardium is normal. CONCLUSIONS -------- 1. Sinus rhythm. 2. This was a technically difficult study with suboptimal views. 3. The left ventricular size is normal. 4. There is mild concentric left ventricular hypertrophy. 5. Overall left ventricular systolic function is normal with, an EF between 55 - 60 %. 6. The right ventricle is normal in size and function. 7. LA is moderately dilated 34-39 ml/m2 8. The right atrium is normal in size. 9. Lumason used 10. Peak/mean gradient across the Aortic Valve is 30.30mmHg / 18.02mmHg. 11. Normally functioning bioprosthetic valve. 12. The mitral valve leaflets are moderately thickened. 13. Moderate mitral annular calcification present. 14. Mild mitral regurgitation is present. 15. The peak and mean MV gradients are 10.89mmHg 3.67mmHg as measured by doppler. 16. Mild tricuspid regurgitation present. 17. There is mild pulmonary hypertension. 18. The right ventricular systolic pressure, as measured by Doppler, is 37.67mmHg. 19. Pulmonic valve appears structurally normal. 20. The aortic root size is normal. 21. The pericardium is normal. HOSE SUSPENDER CUTTER: Selam Miller RDCS
--- NOTE | 2017-11-23 11:08 | P.HPIM ---
History of Present Illness H&P Date: 11/23/17 Chief Complaint: Increased weakness This is a 82-year-old male patient who presented to the emergency room with complaints of increased weakness that has been occurring for the past 3-4 days. She has a known past medical history of prostate cancer, diabetes mellitus, hyperlipidemia and essential hypertension. Patient states that over the past week he's notes he has not been able to walk as far as he used to be able to. Chest x-ray completed showing rotated expiratory exam. Correlate to exclude pulmonary venous hypertension and interstitial edema. Initial labs showing creatinine of 15.61, bun 109 and potassium 9.0. Nephrology consulted immediately. Hemodialysis access per vascular disease and patient received hemodialysis in the emergency room last night. Patient is currently in the intensive care unit. Potassium now 5.8. Bun 82 and creatinine 11.24. Per nursing staff patient to receive hemodialysis again today per nephrology services. Troponin also elevated at 0.059. CT completed showing wide QRS rhythm and occasional premature ventricular complexes Cardiology services following. Per cardiology patient will be started on aspirin and small dose of metoprolol 12.5. 2-D echo will be ordered. Ultrasound of bladder and kidneys completed showing high no hydronephrosis. 3.5 cm cyst on the right. Dr. Do consulted for critical care consult. Patient currently on bicarb drip along with Cleveprex for blood pressure control. At this time patient states he is feeling improved. Patient denies chest pain or shortness of breath. Patient denies nausea vomiting or diarrhea. Patient denies any urinary burning or frequency. Review of Systems Please refer to HPI otherwise unremarkable Past Medical History Past Medical History: Cancer, Diabetes Mellitus, Hyperlipidemia, Hypertension, Prostate Disorder, Thyroid Disorder Additional Past Medical History / Comment(s): AORTIC STENOSIS, prostate cancer, past colon polyps History of Any Multi-Drug Resistant Organisms: None Reported Past Surgical History: Cardiac Valve Replacement, Heart Catheterization, Hernia Repair, Prostate Surgery, Tonsillectomy Additional Past Surgical History / Comment(s): COLON POLYPS. ariel cataracts, upper dental implants,prostatectomy, hernia repair. HEART CATH ON 05/06/2014. total rt knee replacement. 06-16-14 aortic valve replacement(tissue valve) Past Anesthesia/Blood Transfusion Reactions: No Reported Reaction Smoking Status: Never smoker - Past Family History Father Family Medical History: No Reported History Additional Family Medical History / Comment(s): age 92.5 years old- from old age Mother Family Medical History: Myocardial Infarction (MS) Medications and Allergies Home Medications Medication Instructions Recorded Confirmed Type Levothyroxine Sodium [Synthroid] 25 mcg PO HS 05/05/14 11/22/17 History Simvastatin [Zocor] 20 mg PO HS 05/05/14 11/22/17 History metFORMIN HCL 1,000 mg PO BID #0 05/06/14 11/22/17 Rx INSULIN LISPRO (humaLOG) [humaLOG] 10 unit SQ AC-LUNCH 08/02/16 11/22/17 History Insulin NPL/Insulin Lispro 54 unit SQ AC-SUPPER 08/02/16 11/22/17 History [humaLOG MIX 75-25 VIAL] Insulin NPL/Insulin Lispro 60 unit SQ AC-BRKFST 08/02/16 11/22/17 History [humaLOG MIX 75-25 VIAL] HYDROcodone/APAP 5-325MG [Meridian 1 - 2 tab PO Q4-6H PRN #90 tab 08/05/16 Rx 5-325] Aspirin 325 mg PO DAILY 11/22/17 11/22/17 History Ergocalciferol (Vitamin D2) 50,000 unit PO Q7D 11/22/17 11/22/17 History [Vitamin D2] Multivitamins, Thera [Multivitamin 1 tab PO DAILY 11/22/17 11/22/17 History (formulary)] Ramipril [Altace] 10 mg PO DAILY 11/22/17 11/22/17 History Allergies Allergy/AdvReac Type Severity Reaction Status Date / Time No Known Allergies Allergy Verified 11/22/17 15:14 Physical Exam Vitals: Vital Signs Temp Pulse Resp BP Pulse Ox 11/23/17 09:30 72 18 144/75 94 L 11/23/17 09:00 74 17 129/102 95 11/23/17 08:30 77 18 140/72 95 11/23/17 08:00 98.5 F 75 14 139/64 95 11/23/17 07:30 74 17 129/66 95 11/23/17 07:00 75 18 135/68 96 11/23/17 06:30 73 18 148/65 97 11/23/17 06:00 76 19 148/75 95 10/18/18 05:30 75 18 144/66 95 10/18/18 05:00 75 18 147/74 96 1018/18 04:30 80 16 147/72 96 1018/18 04:00 98.1 F 76 14 148/76 95 1018/18 03:30 78 16 144/78 95 1018/18 03:00 77 18 155/68 95 1018/18 02:30 74 18 148/94 96 1018/18 02:00 80 18 162/73 98 1018/18 01:30 77 20 148/69 96 1018/18 01:00 77 19 125/72 97 1018/18 00:30 80 15 141/75 96 1018/18 00:19 98.4 F 82 18 141/75 95 18/18 00:00 86 19 162/73 94 L 17/18 23:30 85 18 154/77 95 17/18 23:00 81 18 166/85 97 17/18 22:30 77 17 158/76 97 17/18 22:00 84 19 157/77 98 17/18 21:30 85 16 189/89 96 1017/18 21:00 98.4 F 72 18 169/86 98 17/18 20:58 98 17/18 20:30 75 19 179/89 94 L 17/18 20:00 74 19 184/89 93 L 17/18 19:30 78 22 172/85 95 17/18 19:15 77 20 168/78 96 17/18 19:04 97.9 F 79 22 187/86 97 1017/18 18:53 98 F 17/18 17:38 74 18 184/92 99 1017/18 16:30 79 204/102 1017/18 16:15 75 190/91 1017/18 16:00 72 187/91 17/18 15:48 68 10/17/18 15:45 73 198/80 100 10/17/18 15:35 65 10/17/18 15:30 153/74 1017/18 15:23 62 1017/18 15:05 58 L 17/18 14:39 97.0 F L 65 18 174/87 98 10/17/18 14:37 174/87 98 Intake and Output 11/22/17 11/23/17 11/23/17 22:59 06:59 14:59 Intake Total 165.793 2118 297.667 Output Total 55 44 35 Balance 180.004 7279 262.667 Intake: IV 450 1100 200 Dextrose 5% in Water 1, 450 1100 200 000 ml @ 100 mls/hr IV . [id number] KELBY with Sodium Bicarb (1 Meq/ml) 150 ml Rx#:[id number] Intake, IV Titration 2.933 26 17.667 Amount Clevidipine Butyrate 25 2.933 26 17.667 mg In Empty Bag 1 bag @ 1 MG/HR 2 mls/hr IV .Q24H KELBY Rx#:[id number] Oral 80 Output: Urine 55 44 35 Other: Voiding Method Indwelling Catheter Indwelling Catheter Weight 123.2 kg Head normocephalic Neck supple Lungs clear to auscultation bilaterally no wheezing or crackles Heart regular rate and rhythm S1-S2, no rub or gallop Abdomen is soft nontender nondistended positive bowel sounds no hepatosplenomegaly Extremities no edema Neuro alert and orientated to 3 Results CBC & Chem 7: 11/23/17 05:04 11/23/17 05:04 Labs: Abnormal Lab Results - Last 24 Hours (Table) 11/22/17 11/22/17 11/22/17 Range/Units 15:05 15:23 15:23 WBC 12.7 H (3.8-10.6) k/uL RBC 4.05 L (4.30-5.90) m/uL Hgb 11.0 L (13.0-17.5) gm/dL Hct 33.7 L (39.0-53.0) % Neutrophils # 11.3 H (1.3-7.7) k/uL Lymphocytes # 0.4 L (1.0-4.8) k/uL Potassium (3.5-5.1) mmol/L Chloride (98-107) mmol/L Carbon Dioxide (22-30) mmol/L BUN (9-20) mg/dL Creatinine (0.66-1.25) mg/dL Glucose (74-99) mg/dL POC Glucose (mg/dL) 64 L (75-99) mg/dL Hemoglobin A1c (4.0-6.0) % Plasma Lactic Acid Wilber (0.7-2.0) mmol/L Calcium (8.4-10.2) mg/dL Phosphorus (2.5-4.5) mg/dL Total Bilirubin (0.2-1.3) mg/dL Total Creatine Kinase 345 H (55-170) U/L CK-MB (CK-2) 5.5 H (0.0-2.4) ng/mL Troponin I 0.042 H* (0.000-0.034) ng/mL Total Protein (6.3-8.2) g/dL Albumin (3.5-5.0) g/dL Urine Protein (Negative) Urine Blood (Negative) Ur Leukocyte Esterase (Negative) Urine RBC (0-5) /hpf Urine WBC (0-5) /hpf Urine WBC Clumps (None) /hpf Urine Bacteria (None) /hpf 11/22/17 11/22/17 11/22/17 Range/Units 15:23 15:23 16:50 WBC (3.8-10.6) k/uL RBC (4.30-5.90) m/uL Hgb (13.0-17.5) gm/dL Hct (39.0-53.0) % Neutrophils # (1.3-7.7) k/uL Lymphocytes # (1.0-4.8) k/uL Potassium 9.0 H* 8.0 H* (3.5-5.1) mmol/L Chloride 109 H 110 H (98-107) mmol/L Carbon Dioxide 14 L 12 L (22-30) mmol/L BUN 109 H* 106 H* (9-20) mg/dL Creatinine 15.61 H* 15.27 H* (0.66-1.25) mg/dL Glucose 56 L 55 L (74-99) mg/dL POC Glucose (mg/dL) (75-99) mg/dL Hemoglobin A1c (4.0-6.0) % Plasma Lactic Acid Wilber 3.2 H* (0.7-2.0) mmol/L Calcium 7.8 L 7.8 L (8.4-10.2) mg/dL Phosphorus 8.9 H (2.5-4.5) mg/dL Total Bilirubin 1.4 H (0.2-1.3) mg/dL Total Creatine Kinase (55-170) U/L CK-MB (CK-2) (0.0-2.4) ng/mL Troponin I (0.000-0.034) ng/mL Total Protein 6.1 L (6.3-8.2) g/dL Albumin 3.3 L (3.5-5.0) g/dL Urine Protein (Negative) Urine Blood (Negative) Ur Leukocyte Esterase (Negative) Urine RBC (0-5) /hpf Urine WBC (0-5) /hpf Urine WBC Clumps (None) /hpf Urine Bacteria (None) /hpf 11/22/17 11/22/17 11/22/17 Range/Units 16:50 20:08 20:08 WBC (3.8-10.6) k/uL RBC (4.30-5.90) m/uL Hgb (13.0-17.5) gm/dL Hct (39.0-53.0) % Neutrophils # (1.3-7.7) k/uL Lymphocytes # (1.0-4.8) k/uL Potassium (3.5-5.1) mmol/L Chloride (98-107) mmol/L Carbon Dioxide (22-30) mmol/L BUN (9-20) mg/dL Creatinine (0.66-1.25) mg/dL Glucose (74-99) mg/dL POC Glucose (mg/dL) (75-99) mg/dL Hemoglobin A1c 7.8 H (4.0-6.0) % Plasma Lactic Acid Wilber 2.9 H* (0.7-2.0) mmol/L Calcium (8.4-10.2) mg/dL Phosphorus (2.5-4.5) mg/dL Total Bilirubin (0.2-1.3) mg/dL Total Creatine Kinase (55-170) U/L CK-MB (CK-2) (0.0-2.4) ng/mL Troponin I (0.000-0.034) ng/mL Total Protein (6.3-8.2) g/dL Albumin (3.5-5.0) g/dL Urine Protein 3+ H (Negative) Urine Blood Large H (Negative) Ur Leukocyte Esterase Trace H (Negative) Urine RBC >182 H (0-5) /hpf Urine WBC 78 H (0-5) /hpf Urine WBC Clumps Many H (None) /hpf Urine Bacteria Rare H (None) /hpf 11/22/17 11/22/17 11/22/17 Range/Units 20:08 20:08 20:55 WBC (3.8-10.6) k/uL RBC (4.30-5.90) m/uL Hgb (13.0-17.5) gm/dL Hct (39.0-53.0) % Neutrophils # (1.3-7.7) k/uL Lymphocytes # (1.0-4.8) k/uL Potassium 7.9 H* (3.5-5.1) mmol/L Chloride 110 H (98-107) mmol/L Carbon Dioxide 14 L (22-30) mmol/L BUN 111 H* (9-20) mg/dL Creatinine 15.38 H* (0.66-1.25) mg/dL Glucose 49 L* (74-99) mg/dL POC Glucose (mg/dL) 61 L (75-99) mg/dL Hemoglobin A1c (4.0-6.0) % Plasma Lactic Acid Wilber (0.7-2.0) mmol/L Calcium 7.7 L (8.4-10.2) mg/dL Phosphorus (2.5-4.5) mg/dL Total Bilirubin 1.4 H (0.2-1.3) mg/dL Total Creatine Kinase (55-170) U/L CK-MB (CK-2) (0.0-2.4) ng/mL Troponin I 0.053 H* (0.000-0.034) ng/mL Total Protein 5.8 L (6.3-8.2) g/dL Albumin 3.2 L (3.5-5.0) g/dL Urine Protein (Negative) Urine Blood (Negative) Ur Leukocyte Esterase (Negative) Urine RBC (0-5) /hpf Urine WBC (0-5) /hpf Urine WBC Clumps (None) /hpf Urine Bacteria (None) /hpf 11/22/17 11/23/17 11/23/17 Range/Units 22:06 00:11 01:07 WBC (3.8-10.6) k/uL RBC (4.30-5.90) m/uL Hgb (13.0-17.5) gm/dL Hct (39.0-53.0) % Neutrophils # (1.3-7.7) k/uL Lymphocytes # (1.0-4.8) k/uL Potassium (3.5-5.1) mmol/L Chloride (98-107) mmol/L Carbon Dioxide (22-30) mmol/L BUN (9-20) mg/dL Creatinine (0.66-1.25) mg/dL Glucose (74-99) mg/dL POC Glucose (mg/dL) 100 H 104 H (75-99) mg/dL Hemoglobin A1c (4.0-6.0) % Plasma Lactic Acid Wilber (0.7-2.0) mmol/L Calcium (8.4-10.2) mg/dL Phosphorus (2.5-4.5) mg/dL Total Bilirubin (0.2-1.3) mg/dL Total Creatine Kinase (55-170) U/L CK-MB (CK-2) (0.0-2.4) ng/mL Troponin I 0.059 H* (0.000-0.034) ng/mL Total Protein (6.3-8.2) g/dL Albumin (3.5-5.0) g/dL Urine Protein (Negative) Urine Blood (Negative) Ur Leukocyte Esterase (Negative) Urine RBC (0-5) /hpf Urine WBC (0-5) /hpf Urine WBC Clumps (None) /hpf Urine Bacteria (None) /hpf 11/23/17 11/23/17 11/23/17 Range/Units 01:07 05:04 05:04 WBC (3.8-10.6) k/uL RBC 3.66 L (4.30-5.90) m/uL Hgb 9.8 L (13.0-17.5) gm/dL Hct 29.8 L (39.0-53.0) % Neutrophils # (1.3-7.7) k/uL Lymphocytes # (1.0-4.8) k/uL Potassium 5.3 H 5.8 H (3.5-5.1) mmol/L Chloride (98-107) mmol/L Carbon Dioxide 20 L (22-30) mmol/L BUN 78 H 82 H (9-20) mg/dL Creatinine 11.22 H* 11.24 H* (0.66-1.25) mg/dL Glucose 101 H (74-99) mg/dL POC Glucose (mg/dL) (75-99) mg/dL Hemoglobin A1c (4.0-6.0) % Plasma Lactic Acid Wilber (0.7-2.0) mmol/L Calcium 7.7 L 7.4 L (8.4-10.2) mg/dL Phosphorus 8.0 H (2.5-4.5) mg/dL Total Bilirubin (0.2-1.3) mg/dL Total Creatine Kinase (55-170) U/L CK-MB (CK-2) (0.0-2.4) ng/mL Troponin I (0.000-0.034) ng/mL Total Protein (6.3-8.2) g/dL Albumin (3.5-5.0) g/dL Urine Protein (Negative) Urine Blood (Negative) Ur Leukocyte Esterase (Negative) Urine RBC (0-5) /hpf Urine WBC (0-5) /hpf Urine WBC Clumps (None) /hpf Urine Bacteria (None) /hpf 11/23/17 11/23/17 Range/Units 06:54 08:01 WBC (3.8-10.6) k/uL RBC (4.30-5.90) m/uL Hgb (13.0-17.5) gm/dL Hct (39.0-53.0) % Neutrophils # (1.3-7.7) k/uL Lymphocytes # (1.0-4.8) k/uL Potassium (3.5-5.1) mmol/L Chloride (98-107) mmol/L Carbon Dioxide (22-30) mmol/L BUN (9-20) mg/dL Creatinine (0.66-1.25) mg/dL Glucose (74-99) mg/dL POC Glucose (mg/dL) 122 H 144 H (75-99) mg/dL Hemoglobin A1c (4.0-6.0) % Plasma Lactic Acid Wilber (0.7-2.0) mmol/L Calcium (8.4-10.2) mg/dL Phosphorus (2.5-4.5) mg/dL Total Bilirubin (0.2-1.3) mg/dL Total Creatine Kinase (55-170) U/L CK-MB (CK-2) (0.0-2.4) ng/mL Troponin I (0.000-0.034) ng/mL Total Protein (6.3-8.2) g/dL Albumin (3.5-5.0) g/dL Urine Protein (Negative) Urine Blood (Negative) Ur Leukocyte Esterase (Negative) Urine RBC (0-5) /hpf Urine WBC (0-5) /hpf Urine WBC Clumps (None) /hpf Urine Bacteria (None) /hpf Microbiology - Last 24 Hours (Table) 11/22/17 16:50 Urine Culture - Preliminary Urine,Catheterized Thrombosis Risk Factor Assmnt - Choose All That Apply Any of the Below Risk Factors Present?: Yes Each Factor Represents 1 point: Medical pt on bed rest, Obesity (BMI >25) Other Risk Factors: Yes Each Risk Factor Represents 3 Points: Age 75 years or older Thrombosis Risk Factor Assessment Total Risk Factor Score: 5 Thrombosis Risk Factor Assessment Level: High Risk Assessment and Plan Assessment: 1. Acute kidney injury with profound hyperkalemia causing profound weakness and EKG changes. Initial potassium 9.0, creatinine 15.61 and bun 109. Patient received emergency exit per Dr. Mcdaniel to right femoral. Patient received T chemo dialysis on 1017 and will again receive hemodialysis today at 1018. Nephrology services following. Ultrasound of the kidneys and bladder completed showing no hydronephrosis. 2.5 cm benign cyst on the right. Dr. Ernestina De La Rosa for critical care. Patient currently on bicarb drip 2. Hyperkalemia. Initial potassium 9.0. Patient received dialysis. Potassium improving to 5.8. Patient to receive dialysis again today 3. Elevated troponin. Troponin 0.059. EKG completed in emergency room showing wide QRS rhythm with occasional premature ventricular complexes. Cardiology service consulted. 2-D echo completed showing an EF of 55-60%. Per cardiology services continue with conservative medical approach with mild abnormal cardiac enzymes. Patient will be restarted and aspirin and Lopressor 12.5 twice a day 4. History of coronary artery disease 5. History of diabetes mellitus. Metformin DC'd. Sliding scale insulin coverage has been added 6. History of essential hypertension. Patient currently on cleveprex drip for Blood pressure control7. 7. History of hyperlipidemia 8. History of prostate cancer. Status post prostatectomy 9. Status post aortic valve replacement for aortic stenosis 10. History of hypothyroidism. Synthroid resumed 11. Anemia. Possibly related to chronic kidney disease. Iron studies will be ordered VT prophylaxis Lovenox GI prophylaxis Protonix Time with Patient: Greater than 30 (Greater than 60% of the total time spent in counseling and coordination of care. I performed an examination of the patient and discussed their management with the Nurse Practitioner. I have reviewed the Nurse Practitioner's notes and agree with the documented findings and plan of care)
[2017-11-23 12:50] LABS: Glucose,Whole Blood 177 mg/dL (75-99)
[2017-11-23 13:14] LABS: Hepatitis B Surface AB- Quant 3.5 mIU/mL
[2017-11-23] MEDS: hydrALAZINE HCL 50 MG TAB PO SCH ×2 (16:49→21:05)
[2017-11-23 17:43] LABS: Glucose,Whole Blood 102 mg/dL (75-99)
[2017-11-23 20:51] LABS: Glucose,Whole Blood 170 mg/dL (75-99)
[2017-11-23] MEDS: LEVOTHYROXINE 25 MCG TAB PO SCH (21:05)
[2017-11-24 05:18] LABS: Phosphorus 7.6 mg/dL (2.5-4.5); Potassium 5.4 mmol/L (3.5-5.1)
[2017-11-24 05:40] LABS: Basophils % (A) 0 %; Eosinophils # (A) 0.1 k/uL (0-0.7); Eosinophils % (A) 1 %; HCT 30.2 % (39.0-53.0); HGB 10.2 gm/dL (13.0-17.5); Lymphocytes # (A) 0.8 k/uL (1.0-4.8); Lymphocytes % (A) 8 %; MCH 27.7 pg (25.0-35.0); MCV 81.6 fL (80.0-100.0); Mean Platelet Volume 6.7; Monocytes % (A) 10 %; Neutrophils % (A) 80 %; Platelet Count 339 k/uL (150-450); RDW 14.4 % (11.5-15.5)
[2017-11-24 06:24] LABS: Glucose,Whole Blood 173 mg/dL (75-99)
[2017-11-24] MEDS: DEXTROSE 5% IN WATER 1,000 ML with SODIUM BICARB (1 MEQ/ML) 150 ML IV SCH (06:30)
[2017-11-24] MEDS: PANTOPRAZOLE 40 MG TABLET PO SCH (06:30)
[2017-11-24] MEDS: INSULIN ASPART 100 UNIT/ML 1 ML 10 ML VIAL SQ SCH ×4 (06:30→20:28)
--- NOTE | 2017-11-24 07:33 | P.PN ---
Subjective Progress Note Date: 11/24/17 Principal diagnosis: Renal failure, acute kidney injury, hyperkalemia, Progress note dated 11/24/2017 This is an 82-year-old male seen in consultation with acute kidney injury and profound hyperkalemia EKG changes and weakness. The patient has undergone dialysis 2. In addition, he has a history of CAD diabetes hypertension hyperlipidemia prostate cancer, status post prostatectomy, aortic stenosis with aortic valve replacement and hypothyroidism. The patient is doing reasonably well. Remains on O2 2 L by nasal cannula. His IV is D5W with 3 ampules of sodium bicarbonate at 75 mL an hour. The patient remains on Cleveprex at 2 mg an hour and hydralazine 50 mg 3 times a day for blood pressure control. As an outpatient, the patient was on AN JEANMARIE inhibitor was not restarted because of his renal failure. The patient is feeling generally better. Remember, his major complaint was that of weakness. He has no prior history of any kidney disease. His chest x-ray is consistent with fluid overload and he would likely benefit from dialysis again with some fluid removal this time. His 2 previous dialysis treatments, resulted in no fluid being removed. Objective - Vital Signs Vital signs: Vital Signs Temp 98.7 F 11/24/17 00:00 Pulse 67 11/24/17 06:00 Resp 19 11/24/17 06:00 BP 164/82 11/24/17 06:00 Pulse Ox 92 L 11/24/17 06:00 Intake & Output 11/23/17 11/24/17 11/24/17 18:59 06:59 18:59 Intake Total 972.667 934.366 Output Total 101 69 Balance 871.667 865.366 Weight 123.7 kg Intake: IV 875 900 Dextrose 5% in Water 1, 875 900 000 ml @ 75 mls/hr IV . [id number] KELBY with Sodium Bicarb (1 Meq/ml) 150 ml Rx#:[id number] Intake, IV Titration 17.667 34.366 Amount Clevidipine Butyrate 25 17.667 34.366 mg In Empty Bag 1 bag @ 1 MG/HR 2 mls/hr IV .Q24H KELBY Rx#:[id number] Oral 80 Output: Urine 101 69 Other: Voiding Method Indwelling Catheter Indwelling Catheter # Bowel Movements 1 - Exam No acute distress, oriented 3. Nasal O2 in place. HEENT examination is grossly unremarkable. Mucous membranes are moist. No oral lesions. Neck supple. Full range of motion. No adenopathy thyromegaly or neck vein distention. Cardiovascular examination reveals regular rhythm rate. S1-S2 normal. No S3 or S4. No discernible murmur noted. Heart sounds are distant. Lungs reveal bilateral crackles and rhonchi. They're mostly noted at the bases. Breath sounds equal bilaterally. There are no wheezes. Abdomen soft bowel sounds are heard. No masses or tenderness. Extremities are intact. No cyanosis clubbing or edema. Skin is without rash or lesion. Neurologic examination is brief but nonfocal. - Labs CBC & Chem 7: 11/24/17 04:31 11/24/17 04:31 Labs: Abnormal Lab Results - Last 24 Hours (Table) 11/22/17 11/23/17 11/23/17 Range/Units 20:08 08:01 12:38 RBC (4.30-5.90) m/uL Hgb (13.0-17.5) gm/dL Hct (39.0-53.0) % Neutrophils # (1.3-7.7) k/uL Lymphocytes # (1.0-4.8) k/uL Sodium (137-145) mmol/L Potassium (3.5-5.1) mmol/L Chloride (98-107) mmol/L BUN (9-20) mg/dL Creatinine (0.66-1.25) mg/dL Glucose (74-99) mg/dL POC Glucose (mg/dL) 144 H 177 H (75-99) mg/dL Hemoglobin A1c 7.8 H (4.0-6.0) % Calcium (8.4-10.2) mg/dL Phosphorus (2.5-4.5) mg/dL 11/23/17 11/23/17 11/24/17 Range/Units 17:31 20:39 04:31 RBC 3.70 L (4.30-5.90) m/uL Hgb 10.2 L (13.0-17.5) gm/dL Hct 30.2 L (39.0-53.0) % Neutrophils # 8.0 H (1.3-7.7) k/uL Lymphocytes # 0.8 L (1.0-4.8) k/uL Sodium (137-145) mmol/L Potassium (3.5-5.1) mmol/L Chloride (98-107) mmol/L BUN (9-20) mg/dL Creatinine (0.66-1.25) mg/dL Glucose (74-99) mg/dL POC Glucose (mg/dL) 102 H 170 H (75-99) mg/dL Hemoglobin A1c (4.0-6.0) % Calcium (8.4-10.2) mg/dL Phosphorus (2.5-4.5) mg/dL 11/24/17 11/24/17 Range/Units 04:31 06:13 RBC (4.30-5.90) m/uL Hgb (13.0-17.5) gm/dL Hct (39.0-53.0) % Neutrophils # (1.3-7.7) k/uL Lymphocytes # (1.0-4.8) k/uL Sodium 136 L (137-145) mmol/L Potassium 5.4 H (3.5-5.1) mmol/L Chloride 97 L (98-107) mmol/L BUN 63 H (9-20) mg/dL Creatinine 10.28 H* (0.66-1.25) mg/dL Glucose 153 H (74-99) mg/dL POC Glucose (mg/dL) 173 H (75-99) mg/dL Hemoglobin A1c (4.0-6.0) % Calcium 7.0 L (8.4-10.2) mg/dL Phosphorus 7.6 H (2.5-4.5) mg/dL Microbiology - Last 24 Hours (Table) 11/22/17 16:50 Urine Culture - Preliminary Urine,Catheterized 11/22/17 15:23 Blood Culture - Preliminary Blood No Growth after 24 hours Assessment and Plan Assessment: Assessment Acute kidney injury with profound hyperkalemia, causing profound weakness and EKG changes. Emergent hemodialysis for symptomatic hyperkalemia History of CAD History of diabetes History of hypertension, with poor control. History of hyperlipidemia History of prostate cancer, status post prostatectomy Status post aortic valve replacement for aortic stenosis History of hypothyroidism Plan: Plan dated 11/23/2017 The patient received emergent hemodialysis last night. His current potassium is 5.8. His BUN is 82 and creatinine is 11.24. His hemoglobin is only 9.8 suggesting that there may be some chronicity to his renal insufficiency/ failure. Patient is feeling better today. He has a substantial history of aortic stenosis requiring aortic valve replacement done by Dr. Nazario years ago. In addition, he suffers from hypothyroidism, hyperlipidemia, hypertension , and diabetes mellitus. We will continue to follow carefully. Additional recommendations and suggestions are forthcoming. Prognosis is guarded. He remains on nasal O2. He remains on a D5W IV with 3 Amps of sodium bicarbonate at 100 mL an hour and Cleveprex 2 mg an hour. He was on Altace at home as his blood pressure medication and we will resume that here in the hospital. Critical care time 34 minutes Plan dated 11/24/2017 Current labs show a white count of 10, hemoglobin 10.2, hematocrit 30.2 and platelet count of 339,000. Sodium is 136 potassium 5.4 chloride 97 CO2 is 25 and anion gap is 14 and BUN and creatinine were 63 and 10.28 respectively. Chest x-ray is consistent with fluid overload. Medications are reviewed and include only aspirin, Cleveprex, Lovenox, IV fluids, hydralazine, [place], insulin , Synthroid, metoprolol, Narcan and Protonix. We will await nephrology input as it relates to both IV fluids and the patient's need for additional dialysis. From my perspective, dialysis with fluid removal would be beneficial to this patient. We will continue to follow. Prognosis remains guarded. Critical care time 33 minutes Time with Patient: Greater than 30
[2017-11-24 07:36] LABS: Glucose,Whole Blood 161 mg/dL (75-99)
--- NOTE | 2017-11-24 07:49 | P.PN ---
Subjective Progress Note Date: 11/24/17 Principal diagnosis: Status post aVR/acute renal failure This is a pleasant 82-year-old gentleman who sees Dr. Meléndez in the office on regular basis with a past medical history significant for aortic valve disease and status post aortic valve replacement in 2013, obesity, hypertension, dyslipidemia, presented to the emergency room complaining of weakness. For the last several days, the patient has been struggling with diarrhea. For the last 24 hours he was feeling very weak and tired and almost losing his consciousness. Yesterday he was unable to walk at home because he was so fatigued and tired. He did not have any syncope. No symptoms of chest pain or chest discomfort. No fever or chills and no abdominal pain as well as. He presented to the emergency room where he was found to be in acute renal failure with a creatinine of 15 and also he was found to be hyperkalemic with a potassium of 9. The patient received an emergent dialysis yesterday with improvement of the creatinine today to 11 as well as in normalization of the potassium. The EKG upon presenting to the hospital showed wide QRS consistent with hyperkalemia and the subsequent EKG from this morning showed sinus rhythm with nonspecific changes and PVCs. The patient remained denies having any chest pain or chest discomfort. The troponin was checked and came in to be slightly abnormal. On follow-up with the patient today, 11/24/2017, he is feeling slightly better. Denies having any chest pain or chest discomfort. The weakness has improved. Creatinine is a slightly better. The patient received another dialysis yesterday. The potassium still elevated. The blood pressure continues to be not well-controlled and I would increase the dose of hydralazine to 75 mg by mouth 3 times a day from 50 mg by mouth 3 times a day for better blood pressure control. We'll follow-up on the echocardiogram as well. Objective - Vital Signs Vital signs: Vital Signs Temp 98.7 F 11/24/17 00:00 Pulse 67 11/24/17 06:00 Resp 19 11/24/17 06:00 BP 164/82 11/24/17 06:00 Pulse Ox 92 L 11/24/17 06:00 Intake & Output 11/23/17 11/24/17 11/24/17 18:59 06:59 18:59 Intake Total 972.667 934.366 Output Total 101 69 Balance 871.667 865.366 Weight 123.7 kg Intake: IV 875 900 Dextrose 5% in Water 1, 875 900 000 ml @ 75 mls/hr IV . [id number] KELBY with Sodium Bicarb (1 Meq/ml) 150 ml Rx#:[id number] Intake, IV Titration 17.667 34.366 Amount Clevidipine Butyrate 25 17.667 34.366 mg In Empty Bag 1 bag @ 1 MG/HR 2 mls/hr IV .Q24H KELBY Rx#:[id number] Oral 80 Output: Urine 101 69 Other: Voiding Method Indwelling Catheter Indwelling Catheter # Bowel Movements 1 - Constitutional General appearance: Present: no acute distress - Respiratory Respiratory: bilateral: CTA - Cardiovascular Rhythm: regular Heart sounds: normal: S1, S2 - Labs CBC & Chem 7: 11/24/17 04:31 11/24/17 04:31 Labs: Abnormal Lab Results - Last 24 Hours (Table) 11/22/17 11/23/17 11/23/17 Range/Units 20:08 08:01 12:38 RBC (4.30-5.90) m/uL Hgb (13.0-17.5) gm/dL Hct (39.0-53.0) % Neutrophils # (1.3-7.7) k/uL Lymphocytes # (1.0-4.8) k/uL Sodium (137-145) mmol/L Potassium (3.5-5.1) mmol/L Chloride (98-107) mmol/L BUN (9-20) mg/dL Creatinine (0.66-1.25) mg/dL Glucose (74-99) mg/dL POC Glucose (mg/dL) 144 H 177 H (75-99) mg/dL Hemoglobin A1c 7.8 H (4.0-6.0) % Calcium (8.4-10.2) mg/dL Phosphorus (2.5-4.5) mg/dL 11/23/17 11/23/17 11/24/17 Range/Units 17:31 20:39 04:31 RBC 3.70 L (4.30-5.90) m/uL Hgb 10.2 L (13.0-17.5) gm/dL Hct 30.2 L (39.0-53.0) % Neutrophils # 8.0 H (1.3-7.7) k/uL Lymphocytes # 0.8 L (1.0-4.8) k/uL Sodium (137-145) mmol/L Potassium (3.5-5.1) mmol/L Chloride (98-107) mmol/L BUN (9-20) mg/dL Creatinine (0.66-1.25) mg/dL Glucose (74-99) mg/dL POC Glucose (mg/dL) 102 H 170 H (75-99) mg/dL Hemoglobin A1c (4.0-6.0) % Calcium (8.4-10.2) mg/dL Phosphorus (2.5-4.5) mg/dL 11/24/17 11/24/17 11/24/17 Range/Units 04:31 06:13 07:25 RBC (4.30-5.90) m/uL Hgb (13.0-17.5) gm/dL Hct (39.0-53.0) % Neutrophils # (1.3-7.7) k/uL Lymphocytes # (1.0-4.8) k/uL Sodium 136 L (137-145) mmol/L Potassium 5.4 H (3.5-5.1) mmol/L Chloride 97 L (98-107) mmol/L BUN 63 H (9-20) mg/dL Creatinine 10.28 H* (0.66-1.25) mg/dL Glucose 153 H (74-99) mg/dL POC Glucose (mg/dL) 173 H 161 H (75-99) mg/dL Hemoglobin A1c (4.0-6.0) % Calcium 7.0 L (8.4-10.2) mg/dL Phosphorus 7.6 H (2.5-4.5) mg/dL Microbiology - Last 24 Hours (Table) 11/22/17 16:50 Urine Culture - Preliminary Urine,Catheterized 11/22/17 15:23 Blood Culture - Preliminary Blood No Growth after 24 hours Assessment and Plan Assessment: Assessment #1 acute renal failure likely to be prerenal and related to hypovolemia #2 hyperkalemia secondary to acute renal failure #3 diarrhea of unknown etiology #4 status post aortic valve replacement #5 mildly abnormal cardiac enzymes #6 hypertension #7 dyslipidemia Plan #1 I would consider a conservative medical approach for the mildly abnormal cardiac enzymes, giving the absence of chest pain and discomfort and the process of acute renal failure at this point #2 continue the current medical regimen including aspirin and metoprolol #3 increase the dose of hydralazine to 75 mg by mouth 3 times a day #4 follow-up on the echocardiogram #5 follow-up with the patient Thank you for allowing us participate in his care and we will continue following up with the patient
--- NOTE | 2017-11-24 07:54 | XR ---
EXAMINATION TYPE: XR chest 1V DATE OF EXAM: 11/24/2017 COMPARISON: 11/22/2017 HISTORY: Weakness and coarsened lung sounds TECHNIQUE: Single frontal view of the chest is obtained. FINDINGS: Bibasilar airspace disease is seen in addition to mild pulmonary vascular congestion. Card iomegaly and post CABG changes the chest are noted. Blunting of the costophrenic angles likely relate s to trace pleural effusions. Old left upper rib fracture deformity is seen as well as old fracture d eformity of the left clavicle. Otherwise osseous structures appear intact with generalized osseous de mineralization present. IMPRESSION: Findings suggestive of worsening pulmonary vascular congestion and confluent edema with trace pleural effusions likely in the setting of congestive heart failure.
[2017-11-24] MEDS: hydrALAZINE HCL 25 MG TAB PO SCH ×3 (07:58→20:28)
[2017-11-24] MEDS: ASPIRIN 81 MG PO SCH (07:58)
[2017-11-24] MEDS: ENOXAPARIN 30 MG/0.3 ML SYRINGE SQ SCH (07:59)
[2017-11-24] MEDS: METOPROLOL TARTRATE 12.5 MG TAB PO SCH ×2 (07:59→20:28)
[2017-11-24 11:04] LABS: Iron Saturation 11.11 (15.00-50.00)
[2017-11-24 11:41] LABS: Glucose,Whole Blood 190 mg/dL (75-99)
--- NOTE | 2017-11-24 12:41 | P.PN ---
Subjective Progress Note Date: 11/24/17 This is a 82-year-old male patient who presented to the emergency room with complaints of increased weakness that has been occurring for the past 3-4 days. She has a known past medical history of prostate cancer, diabetes mellitus, hyperlipidemia and essential hypertension. Patient states that over the past week he's notes he has not been able to walk as far as he used to be able to. Chest x-ray completed showing rotated expiratory exam. Correlate to exclude pulmonary venous hypertension and interstitial edema. Initial labs showing creatinine of 15.61, bun 109 and potassium 9.0. Nephrology consulted immediately. Hemodialysis access per vascular disease and patient received hemodialysis in the emergency room last night. Patient is currently in the intensive care unit. Potassium now 5.8. Bun 82 and creatinine 11.24. Per nursing staff patient to receive hemodialysis again today per nephrology services. Troponin also elevated at 0.059. CT completed showing wide QRS rhythm and occasional premature ventricular complexes Cardiology services following. Per cardiology patient will be started on aspirin and small dose of metoprolol 12.5. 2-D echo will be ordered. Ultrasound of bladder and kidneys completed showing high no hydronephrosis. 3.5 cm cyst on the right. Dr. Do consulted for critical care consult. Patient currently on bicarb drip along with Cleveprex for blood pressure control. At this time patient states he is feeling improved. Patient denies chest pain or shortness of breath. Patient denies nausea vomiting or diarrhea. Patient denies any urinary burning or frequency. On 11/24/2017 patient is currently resting in bed. Creatinine 10.28 and bun 63. Potassium improving to 5.4. Per nursing staff patient to receive dialysis again today. At this time patient states he's feeling much improved. Patient denies chest pain or shortness breath. Patient denies nausea vomiting or diarrhea. Patient denies any urinary symptoms Objective - Vital Signs Vital signs: Vital Signs Temp 97.6 F 11/24/17 12:00 Pulse 65 11/24/17 12:00 Resp 23 11/24/17 12:00 BP 120/66 11/24/17 12:00 Pulse Ox 95 11/24/17 12:00 Intake & Output 11/23/17 11/24/17 11/24/17 18:59 06:59 18:59 Intake Total 972.667 934.366 450 Output Total 101 69 47 Balance 871.667 865.366 403 Weight 123.7 kg 123.7 kg Intake: IV 875 900 450 Dextrose 5% in Water 1, 875 900 450 000 ml @ 75 mls/hr IV . [id number] KELBY with Sodium Bicarb (1 Meq/ml) 150 ml Rx#:[id number] Intake, IV Titration 17.667 34.366 Amount Clevidipine Butyrate 25 17.667 34.366 mg In Empty Bag 1 bag @ 1 MG/HR 2 mls/hr IV .Q24H KELBY Rx#:[id number] Oral 80 Output: Urine 101 69 47 Other: Voiding Method Indwelling Catheter Indwelling Catheter Indwelling Catheter # Bowel Movements 1 1 - Exam Head normocephalic Neck supple Lungs clear to auscultation bilaterally no wheezing or crackles Heart regular rate and rhythm S1-S2, no rub or gallop Abdomen is soft nontender nondistended positive bowel sounds no hepatosplenomegaly Extremities no edema Neuro alert and orientated to 3 - Labs CBC & Chem 7: 11/24/17 04:31 11/24/17 04:31 Labs: Abnormal Lab Results - Last 24 Hours (Table) 11/23/17 11/23/17 11/23/17 Range/Units 12:38 17:31 20:39 RBC (4.30-5.90) m/uL Hgb (13.0-17.5) gm/dL Hct (39.0-53.0) % Neutrophils # (1.3-7.7) k/uL Lymphocytes # (1.0-4.8) k/uL Sodium (137-145) mmol/L Potassium (3.5-5.1) mmol/L Chloride (98-107) mmol/L BUN (9-20) mg/dL Creatinine (0.66-1.25) mg/dL Glucose (74-99) mg/dL POC Glucose (mg/dL) 177 H 102 H 170 H (75-99) mg/dL Calcium (8.4-10.2) mg/dL Phosphorus (2.5-4.5) mg/dL Iron (65-175) ug/dL Iron Saturation (15.00-50.00) 11/24/17 11/24/17 11/24/17 Range/Units 04:31 04:31 04:31 RBC 3.70 L (4.30-5.90) m/uL Hgb 10.2 L (13.0-17.5) gm/dL Hct 30.2 L (39.0-53.0) % Neutrophils # 8.0 H (1.3-7.7) k/uL Lymphocytes # 0.8 L (1.0-4.8) k/uL Sodium 136 L (137-145) mmol/L Potassium 5.4 H (3.5-5.1) mmol/L Chloride 97 L (98-107) mmol/L BUN 63 H (9-20) mg/dL Creatinine 10.28 H* (0.66-1.25) mg/dL Glucose 153 H (74-99) mg/dL POC Glucose (mg/dL) (75-99) mg/dL Calcium 7.0 L (8.4-10.2) mg/dL Phosphorus 7.6 H (2.5-4.5) mg/dL Iron 31 L (65-175) ug/dL Iron Saturation 11.11 L (15.00-50.00) 11/24/17 11/24/17 11/24/17 Range/Units 06:13 07:25 11:30 RBC (4.30-5.90) m/uL Hgb (13.0-17.5) gm/dL Hct (39.0-53.0) % Neutrophils # (1.3-7.7) k/uL Lymphocytes # (1.0-4.8) k/uL Sodium (137-145) mmol/L Potassium (3.5-5.1) mmol/L Chloride (98-107) mmol/L BUN (9-20) mg/dL Creatinine (0.66-1.25) mg/dL Glucose (74-99) mg/dL POC Glucose (mg/dL) 173 H 161 H 190 H (75-99) mg/dL Calcium (8.4-10.2) mg/dL Phosphorus (2.5-4.5) mg/dL Iron (65-175) ug/dL Iron Saturation (15.00-50.00) Microbiology - Last 24 Hours (Table) 11/22/17 16:50 Urine Culture - Preliminary Urine,Catheterized 11/22/17 15:23 Blood Culture - Preliminary Blood No Growth after 24 hours Assessment and Plan Assessment: 1. Acute kidney injury with profound hyperkalemia causing profound weakness and EKG changes. Initial potassium 9.0, creatinine 15.61 and bun 109. Patient received emergency exit per Dr. Mcdaniel to right femoral. Patient received T chemo dialysis on 1017 and will again receive hemodialysis today at 1018. Nephrology services following. Ultrasound of the kidneys and bladder completed showing no hydronephrosis. 2.5 cm benign cyst on the right. Dr. Do following for critical care. Patient currently on bicarb drip. Patient has received dialysis 2 days in row. Patient to receive dialysis again today. 2. Hyperkalemia. Initial potassium 9.0. Patient received dialysis. Potassium improving to 5.8. Patient to receive dialysis again today. potassium 5.4 3. Elevated troponin. Troponin 0.059. EKG completed in emergency room showing wide QRS rhythm with occasional premature ventricular complexes. Cardiology service consulted. 2-D echo completed showing an EF of 55-60%. Per cardiology services continue with conservative medical approach with mild abnormal cardiac enzymes. Patient will be restarted and aspirin and Lopressor 12.5 twice a day 4. History of coronary artery disease 5. History of diabetes mellitus. Metformin DC'd. Sliding scale insulin coverage has been added 6. History of essential hypertension. Patient currently on cleveprex drip for Blood pressure control. 7. History of hyperlipidemia 8. History of prostate cancer. Status post prostatectomy 9. Status post aortic valve replacement for aortic stenosis 10. History of hypothyroidism. Synthroid resumed 11. Anemia. Possibly related to chronic kidney disease. Iron studies will be ordered DVT prophylaxis Lovenox GI prophylaxis Protonix I performed an examination of the patient and discussed their management with the Nurse Practitioner. I have reviewed the Nurse Practitioner's notes and agree with the documented findings and plan of care
[2017-11-24] MEDS: SODIUM CHLORIDE 0.9% 1,000 ML IV SCH (13:29)
--- NOTE | 2017-11-24 13:36 | P.PN ---
Subjective Patient is seen in follow-up for acute kidney injury. Creatinine was over 15 on admission and potassium level was 9. He has undergone 2 treatments of hemodialysis so far. Urine output has been about 10 mL an hour. Patient is awake and alert. Continues to have diarrhea. C. diff was negative. Denies chest pain or shortness of breath. Vital signs are stable. General: The patient appeared well nourished and normally developed. HEENT: Head exam is unremarkable. Neck is without jugular venous distension. LUNGS: Lungs are clear to auscultation and percussion. Breath sounds decreased. HEART: Rate and Rhythm are regular. First and second heart sounds normal. No murmurs, rubs or gallops. ABDOMEN: Abdominal exam reveals normal bowel sounds. Non-tender and non- distended. No evidence of peritonitis. EXTREMITITES: No clubbing, cyanosis, or edema. Objective - Vital Signs Vital signs: Vital Signs Temp 97.6 F 11/24/17 12:00 Pulse 63 11/24/17 13:00 Resp 32 H 11/24/17 13:00 BP 137/64 11/24/17 13:00 Pulse Ox 95 11/24/17 13:00 Intake & Output 11/23/17 11/24/17 11/24/17 18:59 06:59 18:59 Intake Total 972.667 934.366 525 Output Total 101 69 57 Balance 871.667 865.366 468 Weight 123.7 kg 123.7 kg Intake: IV 875 900 525 Dextrose 5% in Water 1, 875 900 525 000 ml @ 75 mls/hr IV . [id number] KELBY with Sodium Bicarb (1 Meq/ml) 150 ml Rx#:[id number] Intake, IV Titration 17.667 34.366 Amount Clevidipine Butyrate 25 17.667 34.366 mg In Empty Bag 1 bag @ 1 MG/HR 2 mls/hr IV .Q24H KELBY Rx#:[id number] Oral 80 Output: Urine 101 69 57 Other: Voiding Method Indwelling Catheter Indwelling Catheter Indwelling Catheter # Bowel Movements 1 1 - Labs CBC & Chem 7: 11/24/17 04:31 11/24/17 04:31 Labs: Abnormal Lab Results - Last 24 Hours (Table) 11/23/17 11/23/17 11/24/17 Range/Units 17:31 20:39 04:31 RBC (4.30-5.90) m/uL Hgb (13.0-17.5) gm/dL Hct (39.0-53.0) % Neutrophils # (1.3-7.7) k/uL Lymphocytes # (1.0-4.8) k/uL Sodium (137-145) mmol/L Potassium (3.5-5.1) mmol/L Chloride (98-107) mmol/L BUN (9-20) mg/dL Creatinine (0.66-1.25) mg/dL Glucose (74-99) mg/dL POC Glucose (mg/dL) 102 H 170 H (75-99) mg/dL Calcium (8.4-10.2) mg/dL Phosphorus (2.5-4.5) mg/dL Iron 31 L (65-175) ug/dL Iron Saturation 11.11 L (15.00-50.00) 11/24/17 11/24/17 11/24/17 Range/Units 04:31 04:31 06:13 RBC 3.70 L (4.30-5.90) m/uL Hgb 10.2 L (13.0-17.5) gm/dL Hct 30.2 L (39.0-53.0) % Neutrophils # 8.0 H (1.3-7.7) k/uL Lymphocytes # 0.8 L (1.0-4.8) k/uL Sodium 136 L (137-145) mmol/L Potassium 5.4 H (3.5-5.1) mmol/L Chloride 97 L (98-107) mmol/L BUN 63 H (9-20) mg/dL Creatinine 10.28 H* (0.66-1.25) mg/dL Glucose 153 H (74-99) mg/dL POC Glucose (mg/dL) 173 H (75-99) mg/dL Calcium 7.0 L (8.4-10.2) mg/dL Phosphorus 7.6 H (2.5-4.5) mg/dL Iron (65-175) ug/dL Iron Saturation (15.00-50.00) 11/24/17 11/24/17 Range/Units 07:25 11:30 RBC (4.30-5.90) m/uL Hgb (13.0-17.5) gm/dL Hct (39.0-53.0) % Neutrophils # (1.3-7.7) k/uL Lymphocytes # (1.0-4.8) k/uL Sodium (137-145) mmol/L Potassium (3.5-5.1) mmol/L Chloride (98-107) mmol/L BUN (9-20) mg/dL Creatinine (0.66-1.25) mg/dL Glucose (74-99) mg/dL POC Glucose (mg/dL) 161 H 190 H (75-99) mg/dL Calcium (8.4-10.2) mg/dL Phosphorus (2.5-4.5) mg/dL Iron (65-175) ug/dL Iron Saturation (15.00-50.00) Microbiology - Last 24 Hours (Table) 11/22/17 16:50 Urine Culture - Preliminary Urine,Catheterized 11/22/17 15:23 Blood Culture - Preliminary Blood No Growth after 24 hours Assessment and Plan Plan: Assessment: 1. Acute kidney injury secondary to ATN secondary to intravascular volume depletion from diarrhea and use of JEANMARIE inhibitor and nonsteroidals. Creatinine 15.6 on admission. Baseline creatinine is near 1. No evidence of hydronephrosis noted on renal ultrasound. 2. Severe hyperkalemia secondary to ramipril, acute kidney injury and metabolic acidosis. Improved postdialysis. 3. Metabolic acidosis secondary to acute kidney injury. Patient was also on metformin. Improved. 4. Insulin-dependent diabetes mellitus. 5. Pyuria. 6. Benign hypertension. Controlled. 7. Hyperphosphatemia secondary to acute kidney injury. 8. Anemia. Iron deficiency noted. Plan: Discontinue bicarbonate drip. Start normal saline at 50 mL an hour for maintenance fluids. Avoid nephrotoxins. Continue to hold JEANMARIE inhibitor and metformin for now. Maintain current antihypertensives. Third treatment of hemodialysis today. Continue to monitor renal function and urine output closely. Follow-up urine culture. Lasix 80 mg IV once today after dialysis. Continue to assess on a day-to-day basis for need for renal replacement therapy. Add PhosLo with meals. Ferrlecit 125 mg IV daily for 3 days. First dose today.
[2017-11-24] MEDS: SODIUM FERRIC GLUCONAT-SUCROSE 125 MG in SODIUM CHLORIDE 0.9% 100 ML IVPB SCH (15:00)
[2017-11-24 17:33] LABS: Glucose,Whole Blood 119 mg/dL (75-99)
[2017-11-24] MEDS: CALCIUM ACETATE 667 MG CAP PO SCH (17:43)
[2017-11-24] MEDS ORDERED: FUROSEMIDE 10 MG/ML 10 ML VIAL IV STA (19:51)
[2017-11-24] MEDS: LEVOTHYROXINE 25 MCG TAB PO SCH (20:29)
[2017-11-24 20:35] LABS: Glucose,Whole Blood 256 mg/dL (75-99)
[2017-11-25] MEDS: SODIUM CHLORIDE 0.9% 1,000 ML IV SCH (04:33)
[2017-11-25 05:13] LABS: Basophils % (A) 0 %; Eosinophils # (A) 0.1 k/uL (0-0.7); Eosinophils % (A) 2 %; HCT 30.9 % (39.0-53.0); HGB 10.1 gm/dL (13.0-17.5); Lymphocytes # (A) 0.7 k/uL (1.0-4.8); Lymphocytes % (A) 9 %; MCH 26.7 pg (25.0-35.0); MCHC 32.6 g/dL (31.0-37.0); Monocytes # (A) 0.7 k/uL (0-1.0); Monocytes % (A) 9 %; Neutrophils # (A) 6.3 k/uL (1.3-7.7); Neutrophils % (A) 79 %; Platelet Count 342 k/uL (150-450); RBC 3.77 m/uL (4.30-5.90); RDW 14.4 % (11.5-15.5); WBC 8.1 k/uL (3.8-10.6)
[2017-11-25 05:26] LABS: Magnesium 1.8 mg/dL (1.6-2.3); Phosphorus 6.6 mg/dL (2.5-4.5); Potassium 4.9 mmol/L (3.5-5.1)
--- NOTE | 2017-11-25 06:34 | XR ---
EXAMINATION TYPE: XR chest 1V DATE OF EXAM: 11/25/2017 HISTORY: CHF. REFERENCE: Previous study dated 11/24/2017. FINDINGS: There has been a midline sternotomy. The heart is enlarged. There is vascular congestion and pulmonary edema. This may have worsened sligh tly. There are small, bilateral effusions. IMPRESSION: WORSENING CHANGES OF CONGESTIVE HEART FAILURE.
--- NOTE | 2017-11-25 07:05 | P.PN ---
Subjective Progress Note Date: 11/25/17 Principal diagnosis: Status post aVR/acute renal failure This is a pleasant 82-year-old gentleman who sees Dr. Meléndez in the office on regular basis with a past medical history significant for aortic valve disease and status post aortic valve replacement in 2013, obesity, hypertension, dyslipidemia, presented to the emergency room complaining of weakness. For the last several days, the patient has been struggling with diarrhea. For the last 24 hours he was feeling very weak and tired and almost losing his consciousness. Yesterday he was unable to walk at home because he was so fatigued and tired. He did not have any syncope. No symptoms of chest pain or chest discomfort. No fever or chills and no abdominal pain as well as. He presented to the emergency room where he was found to be in acute renal failure with a creatinine of 15 and also he was found to be hyperkalemic with a potassium of 9. The patient received an emergent dialysis yesterday with improvement of the creatinine today to 11 as well as in normalization of the potassium. The EKG upon presenting to the hospital showed wide QRS consistent with hyperkalemia and the subsequent EKG from this morning showed sinus rhythm with nonspecific changes and PVCs. The patient remained denies having any chest pain or chest discomfort. The troponin was checked and came in to be slightly abnormal. On follow-up with the patient today, November 252017, the patient is feeling overall better. Denies having any chest pain or discomfort. No shortness of breath. The blood pressure has been better after we adjusted the dose of hydralazine and increase the dose of her thousand to 75 mg by mouth 3 times a day. The creatinine has been coming down. He continues to be on dialysis. The echocardiogram showed normal LV function with normally functioning bioprosthetic aortic valve. Objective - Vital Signs Vital signs: Vital Signs Temp 98.5 F 11/25/17 04:00 Pulse 67 11/25/17 06:00 Resp 15 11/25/17 06:00 BP 141/59 11/25/17 06:00 Pulse Ox 93 L 11/25/17 06:00 Intake & Output 11/24/17 11/25/17 11/25/17 18:59 06:59 18:59 Intake Total 911 600 Output Total 103 113 Balance 808 487 Weight 123.7 kg 124.9 kg Intake: IV 600 550 Dextrose 5% in Water 1, 600 000 ml @ 75 mls/hr IV . [id number] KLEBY with Sodium Bicarb (1 Meq/ml) 150 ml Rx#:[id number] Sodium Chloride 0.9% 1, 550 000 ml @ 50 mls/hr IV . Q20H KELBY Rx#:[id number] Intake, IV Titration 311 Amount Clevidipine Butyrate 25 11 mg In Empty Bag 1 bag @ 1 MG/HR 2 mls/hr IV .Q24H KELBY Rx#:[id number] Sodium Chloride 0.9% 1, 200 000 ml @ 50 mls/hr IV . Q20H KELBY Rx#:[id number] Sodium Ferric Gluconat- 100 Sucrose 125 mg In Sodium Chloride 0.9% 100 ml @ 100 mls/hr IVPB DAILY KELBY Rx#:[id number] Oral 50 Output: Urine 103 113 Other: Voiding Method Indwelling Catheter Indwelling Catheter # Bowel Movements 1 - Constitutional General appearance: Present: no acute distress - Respiratory Respiratory: bilateral: CTA - Cardiovascular Rhythm: regular Heart sounds: normal: S1, S2 Abnormal Heart Sounds: Present: systolic murmur - Labs CBC & Chem 7: 11/25/17 04:46 11/25/17 04:46 Labs: Abnormal Lab Results - Last 24 Hours (Table) 11/24/17 11/24/17 11/24/17 Range/Units 04:31 07:25 11:30 RBC (4.30-5.90) m/uL Hgb (13.0-17.5) gm/dL Hct (39.0-53.0) % Lymphocytes # (1.0-4.8) k/uL Sodium (137-145) mmol/L BUN (9-20) mg/dL Creatinine (0.66-1.25) mg/dL Glucose (74-99) mg/dL POC Glucose (mg/dL) 161 H 190 H (75-99) mg/dL Calcium (8.4-10.2) mg/dL Phosphorus (2.5-4.5) mg/dL Iron 31 L (65-175) ug/dL Iron Saturation 11.11 L (15.00-50.00) 11/24/17 11/24/17 11/25/17 Range/Units 17:22 20:23 04:46 RBC 3.77 L (4.30-5.90) m/uL Hgb 10.1 L (13.0-17.5) gm/dL Hct 30.9 L (39.0-53.0) % Lymphocytes # 0.7 L (1.0-4.8) k/uL Sodium (137-145) mmol/L BUN (9-20) mg/dL Creatinine (0.66-1.25) mg/dL Glucose (74-99) mg/dL POC Glucose (mg/dL) 119 H 256 H (75-99) mg/dL Calcium (8.4-10.2) mg/dL Phosphorus (2.5-4.5) mg/dL Iron (65-175) ug/dL Iron Saturation (15.00-50.00) 11/25/17 Range/Units 04:46 RBC (4.30-5.90) m/uL Hgb (13.0-17.5) gm/dL Hct (39.0-53.0) % Lymphocytes # (1.0-4.8) k/uL Sodium 135 L (137-145) mmol/L BUN 52 H (9-20) mg/dL Creatinine 8.85 H* (0.66-1.25) mg/dL Glucose 111 H (74-99) mg/dL POC Glucose (mg/dL) (75-99) mg/dL Calcium 7.0 L (8.4-10.2) mg/dL Phosphorus 6.6 H (2.5-4.5) mg/dL Iron (65-175) ug/dL Iron Saturation (15.00-50.00) Microbiology - Last 24 Hours (Table) 11/22/17 15:23 Blood Culture - Preliminary Blood No Growth after 48 hours Assessment and Plan Assessment: Assessment #1 acute renal failure likely to be prerenal and related to hypovolemia #2 hyperkalemia secondary to acute renal failure #3 diarrhea of unknown etiology #4 status post aortic valve replacement #5 mildly abnormal cardiac enzymes #6 hypertension #7 dyslipidemia Plan #1 I would consider a conservative medical approach for the mildly abnormal cardiac enzymes, giving the absence of chest pain and discomfort and the process of acute renal failure at this point #2 continue the current medical regimen including aspirin and metoprolol #3 continue monitor the kidney function and electrolytes #4 the echocardiogram showed normal LV function with normally functioning bioprosthetic aortic valve. #5 follow-up with the patient Thank you for allowing us participate in his care and we will continue following up with the patient
[2017-11-25 07:06] LABS: Glucose,Whole Blood 165 mg/dL (75-99)
[2017-11-25] MEDS: INSULIN ASPART 100 UNIT/ML 1 ML 10 ML VIAL SQ SCH ×4 (07:13→20:41)
[2017-11-25] MEDS: PANTOPRAZOLE 40 MG TABLET PO SCH (09:38)
[2017-11-25] MEDS: METOPROLOL TARTRATE 12.5 MG TAB PO SCH ×2 (09:38→20:28)
[2017-11-25] MEDS: CALCIUM ACETATE 667 MG CAP PO SCH ×3 (09:38→18:14)
[2017-11-25] MEDS: ASPIRIN 81 MG PO SCH (09:38)
[2017-11-25] MEDS: ENOXAPARIN 30 MG/0.3 ML SYRINGE SQ SCH (09:38)
[2017-11-25] MEDS: hydrALAZINE HCL 25 MG TAB PO SCH ×3 (09:38→20:28)
[2017-11-25] MEDS: SODIUM FERRIC GLUCONAT-SUCROSE 125 MG in SODIUM CHLORIDE 0.9% 100 ML IVPB SCH (09:42)
--- NOTE | 2017-11-25 09:56 | P.PN ---
Subjective Progress Note Date: 11/25/17 Principal diagnosis: Acute renal failure, hyperkalemia, weakness The patient is seen again today 11/25/2017 in follow-up in the intensive care unit. He is currently awake and alert in no acute distress. He was initially admitted for acute kidney injury with profound hyperkalemia with EKG changes and weakness. He has undergone dialysis 2 thus far. His chest x-ray continues to show evidence of fluid volume overload. He is currently maintaining O2 saturations in the 90s on room air. He's been afebrile. Hemodynamically stable. He has a 0.9 normal saline at 50 MLS per hour. Blood and urine cultures reveal no growth thus far. White count 8.1. Hemoglobin 10.1. Potassium 4.9. Creatinine 8.85. Nephrology is on the case as well. Objective - Vital Signs Vital signs: Vital Signs Temp 98.5 F 11/25/17 04:00 Pulse 65 11/25/17 07:00 Resp 26 H 11/25/17 07:00 BP 154/92 11/25/17 07:00 Pulse Ox 94 L 11/25/17 07:00 Intake & Output 11/24/17 11/25/17 11/25/17 18:59 06:59 18:59 Intake Total 911 600 350 Output Total 103 113 15 Balance 808 487 335 Weight 123.7 kg 124.9 kg Intake: IV 600 550 100 Dextrose 5% in Water 1, 600 000 ml @ 75 mls/hr IV . [id number] [facility] with Sodium Bicarb (1 Meq/ml) 150 ml Rx#:[id number] Sodium Chloride 0.9% 1, 550 100 000 ml @ 50 mls/hr IV . Q20H [facility] Rx#:[id number] Intake, IV Titration 311 Amount Clevidipine Butyrate 25 11 mg In Empty Bag 1 bag @ 1 MG/HR 2 mls/hr IV .Q24H [facility] Rx#:[id number] Sodium Chloride 0.9% 1, 200 000 ml @ 50 mls/hr IV . Q20H [facility] Rx#:[id number] Sodium Ferric Gluconat- 100 Sucrose 125 mg In Sodium Chloride 0.9% 100 ml @ 100 mls/hr IVPB DAILY [facility] Rx#:[id number] Oral 50 250 Output: Urine 103 113 15 Other: Voiding Method Indwelling Catheter Indwelling Catheter Indwelling Catheter # Bowel Movements 1 - Exam No acute distress, oriented 3. Maintaining good O2 saturations in the 90s on room air. HEENT examination is grossly unremarkable. Mucous membranes are moist. No oral lesions. Neck supple. Full range of motion. No adenopathy thyromegaly or neck vein distention. Cardiovascular examination reveals regular rhythm rate. S1-S2 normal. No S3 or S4. No discernible murmur noted. Heart sounds are distant. Lungs reveal bilateral crackles and rhonchi. They're mostly noted at the bases. Breath sounds equal bilaterally. There are no wheezes. Abdomen soft bowel sounds are heard. No masses or tenderness. Extremities are intact. No cyanosis clubbing or edema. Skin is without rash or lesion. Neurologic examination is brief but nonfocal. - Labs CBC & Chem 7: 11/25/17 04:46 11/25/17 04:46 Labs: Abnormal Lab Results - Last 24 Hours (Table) 11/24/17 11/24/17 11/24/17 Range/Units 04:31 11:30 17:22 RBC (4.30-5.90) m/uL Hgb (13.0-17.5) gm/dL Hct (39.0-53.0) % Lymphocytes # (1.0-4.8) k/uL Sodium (137-145) mmol/L BUN (9-20) mg/dL Creatinine (0.66-1.25) mg/dL Glucose (74-99) mg/dL POC Glucose (mg/dL) 190 H 119 H (75-99) mg/dL Calcium (8.4-10.2) mg/dL Phosphorus (2.5-4.5) mg/dL Iron 31 L (65-175) ug/dL Iron Saturation 11.11 L (15.00-50.00) 11/24/17 11/25/17 11/25/17 Range/Units 20:23 04:46 04:46 RBC 3.77 L (4.30-5.90) m/uL Hgb 10.1 L (13.0-17.5) gm/dL Hct 30.9 L (39.0-53.0) % Lymphocytes # 0.7 L (1.0-4.8) k/uL Sodium 135 L (137-145) mmol/L BUN 52 H (9-20) mg/dL Creatinine 8.85 H* (0.66-1.25) mg/dL Glucose 111 H (74-99) mg/dL POC Glucose (mg/dL) 256 H (75-99) mg/dL Calcium 7.0 L (8.4-10.2) mg/dL Phosphorus 6.6 H (2.5-4.5) mg/dL Iron (65-175) ug/dL Iron Saturation (15.00-50.00) 11/25/17 Range/Units 06:53 RBC (4.30-5.90) m/uL Hgb (13.0-17.5) gm/dL Hct (39.0-53.0) % Lymphocytes # (1.0-4.8) k/uL Sodium (137-145) mmol/L BUN (9-20) mg/dL Creatinine (0.66-1.25) mg/dL Glucose (74-99) mg/dL POC Glucose (mg/dL) 165 H (75-99) mg/dL Calcium (8.4-10.2) mg/dL Phosphorus (2.5-4.5) mg/dL Iron (65-175) ug/dL Iron Saturation (15.00-50.00) Microbiology - Last 24 Hours (Table) 11/22/17 15:23 Blood Culture - Preliminary Blood No Growth after 48 hours Assessment and Plan Assessment: Assessment Acute kidney injury with profound hyperkalemia, causing profound weakness and EKG changes. Today's creatinine 8.85. Emergent hemodialysis for symptomatic hyperkalemia, current potassium 4.9. History of CAD History of diabetes History of hypertension, with poor control. History of hyperlipidemia History of prostate cancer, status post prostatectomy Status post aortic valve replacement for aortic stenosis History of hypothyroidism Plan: The patient was seen and evaluated by Dr. Do. The patient is status post 2 hemodialysis treatments. His current creatinine is 8.85. Nephrology is on the case. Congestive heart failure still shows on the chest x-ray. Hopefully more fluid could be removed today. He could be transferred to the general medical floor with remote telemetry. We will continue to follow. I, the cosigning physician, performed a history & physical examination of the patient. Lungs sounds echo is in the bilateral posterior bases. Maintaining good O2 saturations in the 90s on room air. I discussed the assessment and plan of care with my nurse practitioner, Katie Busby. I attest to the above note as dictated by her.
[2017-11-25] MEDS ORDERED: MAGNESIUM SULFATE-D5W PMX 1 GM in DEXTROSE/WATER 1 100ML.BAG IVPB ONE (09:59)
--- NOTE | 2017-11-25 10:29 | P.PN ---
Subjective Patient is seen in follow-up for acute kidney injury. Creatinine was over 15 on admission and potassium level was 9. He has undergone 3 treatments of hemodialysis so far. Urine output has been about 10 mL an hour despite receiving 80 mg of IV Lasix yesterday. Patient is awake and alert. Admits to diarrhea. C. diff was negative. Denies chest pain or shortness of breath. Oral intake is good. Vital signs are stable. General: The patient appeared well nourished and normally developed. HEENT: Head exam is unremarkable. Neck is without jugular venous distension. LUNGS: Breath sounds decreased. HEART: Rate and Rhythm are regular. First and second heart sounds normal. No murmurs, rubs or gallops. ABDOMEN: Abdominal exam reveals normal bowel sounds. Non-tender and non- distended. No evidence of peritonitis. EXTREMITITES: No clubbing, cyanosis, or edema. Objective - Vital Signs Vital signs: Vital Signs Temp 97.5 F L 11/25/17 09:00 Pulse 64 11/25/17 09:00 Resp 21 11/25/17 09:00 BP 151/67 11/25/17 09:00 Pulse Ox 92 L 11/25/17 09:00 Intake & Output 11/24/17 11/25/17 11/25/17 18:59 06:59 18:59 Intake Total 911 600 450 Output Total 103 113 25 Balance 808 487 425 Weight 123.7 kg 124.9 kg Intake: IV 600 550 200 Dextrose 5% in Water 1, 600 000 ml @ 75 mls/hr IV . [id number] [facility] with Sodium Bicarb (1 Meq/ml) 150 ml Rx#:[id number] Sodium Chloride 0.9% 1, 550 200 000 ml @ 50 mls/hr IV . Q20H [facility] Rx#:[id number] Intake, IV Titration 311 Amount Clevidipine Butyrate 25 11 mg In Empty Bag 1 bag @ 1 MG/HR 2 mls/hr IV .Q24H [facility] Rx#:[id number] Sodium Chloride 0.9% 1, 200 000 ml @ 50 mls/hr IV . Q20H [facility] Rx#:[id number] Sodium Ferric Gluconat- 100 Sucrose 125 mg In Sodium Chloride 0.9% 100 ml @ 100 mls/hr IVPB DAILY [facility] Rx#:[id number] Oral 50 250 Output: Urine 103 113 25 Other: Voiding Method Indwelling Catheter Indwelling Catheter Indwelling Catheter # Bowel Movements 1 - Labs CBC & Chem 7: 11/25/17 04:46 11/25/17 04:46 Labs: Abnormal Lab Results - Last 24 Hours (Table) 11/24/17 11/24/17 11/24/17 Range/Units 04:31 11:30 17:22 RBC (4.30-5.90) m/uL Hgb (13.0-17.5) gm/dL Hct (39.0-53.0) % Lymphocytes # (1.0-4.8) k/uL Sodium (137-145) mmol/L BUN (9-20) mg/dL Creatinine (0.66-1.25) mg/dL Glucose (74-99) mg/dL POC Glucose (mg/dL) 190 H 119 H (75-99) mg/dL Calcium (8.4-10.2) mg/dL Phosphorus (2.5-4.5) mg/dL Iron 31 L (65-175) ug/dL Iron Saturation 11.11 L (15.00-50.00) 11/24/17 11/25/17 11/25/17 Range/Units 20:23 04:46 04:46 RBC 3.77 L (4.30-5.90) m/uL Hgb 10.1 L (13.0-17.5) gm/dL Hct 30.9 L (39.0-53.0) % Lymphocytes # 0.7 L (1.0-4.8) k/uL Sodium 135 L (137-145) mmol/L BUN 52 H (9-20) mg/dL Creatinine 8.85 H* (0.66-1.25) mg/dL Glucose 111 H (74-99) mg/dL POC Glucose (mg/dL) 256 H (75-99) mg/dL Calcium 7.0 L (8.4-10.2) mg/dL Phosphorus 6.6 H (2.5-4.5) mg/dL Iron (65-175) ug/dL Iron Saturation (15.00-50.00) 11/25/17 Range/Units 06:53 RBC (4.30-5.90) m/uL Hgb (13.0-17.5) gm/dL Hct (39.0-53.0) % Lymphocytes # (1.0-4.8) k/uL Sodium (137-145) mmol/L BUN (9-20) mg/dL Creatinine (0.66-1.25) mg/dL Glucose (74-99) mg/dL POC Glucose (mg/dL) 165 H (75-99) mg/dL Calcium (8.4-10.2) mg/dL Phosphorus (2.5-4.5) mg/dL Iron (65-175) ug/dL Iron Saturation (15.00-50.00) Microbiology - Last 24 Hours (Table) 11/22/17 15:23 Blood Culture - Preliminary Blood No Growth after 48 hours Assessment and Plan Plan: Assessment: 1. Acute kidney injury secondary to ATN secondary to intravascular volume depletion from diarrhea and use of JEANMARIE inhibitor and nonsteroidals. Creatinine 15.6 on admission. Baseline creatinine is near 1. No evidence of hydronephrosis noted on renal ultrasound. Currently hemodialysis dependent. 2. Severe hyperkalemia secondary to ramipril, acute kidney injury and metabolic acidosis. Improved postdialysis. 3. Metabolic acidosis secondary to acute kidney injury. Patient was also on metformin. Improved. 4. Insulin-dependent diabetes mellitus. 5. Pyuria. 6. Benign hypertension. Controlled. 7. Hyperphosphatemia secondary to acute kidney injury. 8. Anemia. Iron deficiency noted. 9. Volume overload. Plan: Hemodialysis today. Will try for 1-2 L ultrafiltration. Avoid nephrotoxins. Continue to hold JEANMARIE inhibitor and metformin for now. Maintain current antihypertensives. Continue to monitor renal function and urine output closely. Hold off on diuretics today. Continue to assess on a day-to-day basis for need for renal replacement therapy. Maintain PhosLo with meals. Ferrlecit 125 mg IV daily for 3 days. Second dose today.
[2017-11-25 12:08] LABS: Glucose,Whole Blood 318 mg/dL (75-99)
--- NOTE | 2017-11-25 15:40 | P.PN ---
Subjective Progress Note Date: 11/25/17 This is a 82-year-old male patient who presented to the emergency room with complaints of increased weakness that has been occurring for the past 3-4 days. She has a known past medical history of prostate cancer, diabetes mellitus, hyperlipidemia and essential hypertension. Patient states that over the past week he's notes he has not been able to walk as far as he used to be able to. Chest x-ray completed showing rotated expiratory exam. Correlate to exclude pulmonary venous hypertension and interstitial edema. Initial labs showing creatinine of 15.61, bun 109 and potassium 9.0. Nephrology consulted immediately. Hemodialysis access per vascular disease and patient received hemodialysis in the emergency room last night. Patient is currently in the intensive care unit. Potassium now 5.8. Bun 82 and creatinine 11.24. Per nursing staff patient to receive hemodialysis again today per nephrology services. Troponin also elevated at 0.059. CT completed showing wide QRS rhythm and occasional premature ventricular complexes Cardiology services following. Per cardiology patient will be started on aspirin and small dose of metoprolol 12.5. 2-D echo will be ordered. Ultrasound of bladder and kidneys completed showing high no hydronephrosis. 3.5 cm cyst on the right. Dr. Do consulted for critical care consult. Patient currently on bicarb drip along with Cleveprex for blood pressure control. At this time patient states he is feeling improved. Patient denies chest pain or shortness of breath. Patient denies nausea vomiting or diarrhea. Patient denies any urinary burning or frequency. On 11/24/2017 patient is currently resting in bed. Creatinine 10.28 and bun 63. Potassium improving to 5.4. Per nursing staff patient to receive dialysis again today. At this time patient states he's feeling much improved. Patient denies chest pain or shortness breath. Patient denies nausea vomiting or diarrhea. Patient denies any urinary symptoms Objective - Vital Signs Vital signs: Vital Signs Temp 98.4 F 11/25/17 12:00 Pulse 58 L 11/25/17 15:00 Resp 24 11/25/17 15:00 BP 148/73 11/25/17 15:00 Pulse Ox 93 L 11/25/17 15:00 Intake & Output 11/24/17 11/25/17 11/25/17 18:59 06:59 18:59 Intake Total 911 600 650 Output Total 103 113 49 Balance 808 487 601 Weight 123.7 kg 124.9 kg Intake: IV 600 550 300 Dextrose 5% in Water 1, 600 000 ml @ 75 mls/hr IV . [id number] [facility] with Sodium Bicarb (1 Meq/ml) 150 ml Rx#:[id number] Sodium Chloride 0.9% 1, 550 200 000 ml @ 50 mls/hr IV . Q20H [facility] Rx#:[id number] Sodium Ferric Gluconat- 100 Sucrose 125 mg In Sodium Chloride 0.9% 100 ml @ 100 mls/hr IVPB DAILY [facility] Rx#:[id number] Intake, IV Titration 311 100 Amount Clevidipine Butyrate 25 11 mg In Empty Bag 1 bag @ 1 MG/HR 2 mls/hr IV .Q24H [facility] Rx#:[id number] Magnesium Sulfate-D5w Pmx 100 1 gm In Dextrose/Water 1 100ml.bag @ 100 mls/hr IVPB ONCE ONE Rx#: [id number] Sodium Chloride 0.9% 1, 200 000 ml @ 50 mls/hr IV . Q20H [facility] Rx#:[id number] Sodium Ferric Gluconat- 100 Sucrose 125 mg In Sodium Chloride 0.9% 100 ml @ 100 mls/hr IVPB DAILY [facility] Rx#:[id number] Oral 50 250 Output: Urine 103 113 49 Other: Voiding Method Indwelling Catheter Indwelling Catheter Indwelling Catheter # Bowel Movements 1 - Exam Head normocephalic and atraumatic Neck supple no JVD no goiter Lungs clear to auscultation bilaterally no wheezing or crackles Heart regular rate and rhythm S1-S2, no rub or gallop Abdomen is soft nontender nondistended positive bowel sounds no hepatosplenomegaly Extremities no edema no cyanosis or clubbing Neuro alert and orientated to 3 - Labs CBC & Chem 7: 11/25/17 04:46 11/25/17 04:46 Labs: Abnormal Lab Results - Last 24 Hours (Table) 11/24/17 11/24/17 11/25/17 Range/Units 17:22 20:23 04:46 RBC 3.77 L (4.30-5.90) m/uL Hgb 10.1 L (13.0-17.5) gm/dL Hct 30.9 L (39.0-53.0) % Lymphocytes # 0.7 L (1.0-4.8) k/uL Sodium (137-145) mmol/L BUN (9-20) mg/dL Creatinine (0.66-1.25) mg/dL Glucose (74-99) mg/dL POC Glucose (mg/dL) 119 H 256 H (75-99) mg/dL Calcium (8.4-10.2) mg/dL Phosphorus (2.5-4.5) mg/dL 11/25/17 11/25/17 11/25/17 Range/Units 04:46 06:53 11:56 RBC (4.30-5.90) m/uL Hgb (13.0-17.5) gm/dL Hct (39.0-53.0) % Lymphocytes # (1.0-4.8) k/uL Sodium 135 L (137-145) mmol/L BUN 52 H (9-20) mg/dL Creatinine 8.85 H* (0.66-1.25) mg/dL Glucose 111 H (74-99) mg/dL POC Glucose (mg/dL) 165 H 318 H (75-99) mg/dL Calcium 7.0 L (8.4-10.2) mg/dL Phosphorus 6.6 H (2.5-4.5) mg/dL Microbiology - Last 24 Hours (Table) 11/22/17 15:23 Blood Culture - Preliminary Blood No Growth after 48 hours Assessment and Plan Plan: 1. Acute kidney injury with profound hyperkalemia causing profound weakness and EKG changes. Initial potassium 9.0, creatinine 15.61 and bun 109. Patient received emergency exit per Dr. Mcdaniel to right femoral. Patient received T chemo dialysis on 1017 and will again receive hemodialysis today at 1018. Nephrology services following. Ultrasound of the kidneys and bladder completed showing no hydronephrosis. 2.5 cm benign cyst on the right. Dr. Do following for critical care. Patient currently on bicarb drip. Patient has received dialysis 2 days in row. Patient to receive dialysis again today. 2. Hyperkalemia. Initial potassium 9.0. Patient received dialysis. Potassium improving to 5.8. Patient to receive dialysis again today. potassium 5.4 3. Elevated troponin. Troponin 0.059. EKG completed in emergency room showing wide QRS rhythm with occasional premature ventricular complexes. Cardiology service consulted. 2-D echo completed showing an EF of 55-60%. Per cardiology services continue with conservative medical approach with mild abnormal cardiac enzymes. Patient will be restarted and aspirin and Lopressor 12.5 twice a day 4. History of coronary artery disease 5. History of diabetes mellitus. Metformin DC'd. Sliding scale insulin coverage has been added 6. History of essential hypertension. Patient currently on cleveprex drip for Blood pressure control. 7. History of hyperlipidemia 8. History of prostate cancer. Status post prostatectomy 9. Status post aortic valve replacement for aortic stenosis 10. History of hypothyroidism. Synthroid resumed 11. Anemia. Possibly related to chronic kidney disease. Iron studies will be ordered DVT prophylaxis Lovenox GI prophylaxis Protonix
[2017-11-25 17:53] LABS: Glucose,Whole Blood 130 mg/dL (75-99)
[2017-11-25] MEDS: LEVOTHYROXINE 25 MCG TAB PO SCH (20:28)
[2017-11-25 20:42] LABS: Glucose,Whole Blood 221 mg/dL (75-99)
[2017-11-25] MEDS: CLEVIDIPINE BUTYRATE 25 MG in EMPTY BAG 1 BAG IV SCH (20:42)
[2017-11-26 05:44] LABS: Basophils % (A) 0 %; Eosinophils # (A) 0.1 k/uL (0-0.7); Eosinophils % (A) 1 %; HCT 31.7 % (39.0-53.0); HGB 10.2 gm/dL (13.0-17.5); Lymphocytes # (A) 0.9 k/uL (1.0-4.8); Lymphocytes % (A) 10 %; MCH 26.6 pg (25.0-35.0); MCHC 32.3 g/dL (31.0-37.0); MCV 82.5 fL (80.0-100.0); Mean Platelet Volume 6.8; Monocytes # (A) 0.8 k/uL (0-1.0); Monocytes % (A) 9 %; Neutrophils # (A) 6.9 k/uL (1.3-7.7); Neutrophils % (A) 77 %; Platelet Count 368 k/uL (150-450); RBC 3.85 m/uL (4.30-5.90); RDW 14.4 % (11.5-15.5); WBC 9.1 k/uL (3.8-10.6)
[2017-11-26 06:04] LABS: Calcium 7.4 mg/dL (8.4-10.2); Magnesium 1.9 mg/dL (1.6-2.3); Phosphorus 6.4 mg/dL (2.5-4.5)
--- NOTE | 2017-11-26 07:48 | P.PN ---
Subjective Progress Note Date: 11/26/17 Principal diagnosis: Status post aVR/acute renal failure This is a pleasant 82-year-old gentleman who sees Dr. Meléndez in the office on regular basis with a past medical history significant for aortic valve disease and status post aortic valve replacement in 2013, obesity, hypertension, dyslipidemia, presented to the emergency room complaining of weakness. For the last several days, the patient has been struggling with diarrhea. For the last 24 hours he was feeling very weak and tired and almost losing his consciousness. Yesterday he was unable to walk at home because he was so fatigued and tired. He did not have any syncope. No symptoms of chest pain or chest discomfort. No fever or chills and no abdominal pain as well as. He presented to the emergency room where he was found to be in acute renal failure with a creatinine of 15 and also he was found to be hyperkalemic with a potassium of 9. The patient received an emergent dialysis yesterday with improvement of the creatinine today to 11 as well as in normalization of the potassium. The EKG upon presenting to the hospital showed wide QRS consistent with hyperkalemia and the subsequent EKG from this morning showed sinus rhythm with nonspecific changes and PVCs. On follow-up with the patient today, November [id number], he continues to be asymptomatic from a cardiovascular standpoint of view. Denies having any chest pain or discomfort. The blood pressure is better controlled after I did increase the dose of hydralazine to 75 mg by mouth 3 times a day. He has been in bed all the time and I encouraged the patient to get up and around and sit in a chair and walk in the hallway. The creatinine is 8 and he is receiving dialysis every day. The echocardiogram revealed normal LV function with normally functioning bioprosthetic aortic valve. Objective - Vital Signs Vital signs: Vital Signs Temp 98.2 F 11/26/17 04:00 Pulse 59 L 11/26/17 04:00 Resp 11 L 11/26/17 04:00 BP 139/72 11/26/17 04:00 Pulse Ox 93 L 11/26/17 04:00 Intake & Output 11/25/17 11/26/17 11/26/17 18:59 06:59 18:59 Intake Total 650 100 Output Total 65 41 Balance 585 59 Weight 38.9 kg Intake: IV 300 Sodium Chloride 0.9% 1, 200 000 ml @ 50 mls/hr IV . Q20H [facility] Rx#:[id number] Sodium Ferric Gluconat- 100 Sucrose 125 mg In Sodium Chloride 0.9% 100 ml @ 100 mls/hr IVPB DAILY [facility] Rx#:[id number] Intake, IV Titration 100 Amount Magnesium Sulfate-D5w Pmx 100 1 gm In Dextrose/Water 1 100ml.bag @ 100 mls/hr IVPB ONCE ONE Rx#: [id number] Oral 250 100 Output: Urine 65 41 Other: Voiding Method Indwelling Catheter Indwelling Catheter - Constitutional General appearance: Present: no acute distress - Respiratory Respiratory: bilateral: CTA - Cardiovascular Rhythm: regular Heart sounds: normal: S1, S2 - Labs CBC & Chem 7: 11/26/17 05:09 11/26/17 05:09 Labs: Abnormal Lab Results - Last 24 Hours (Table) 11/25/17 11/25/17 11/25/17 Range/Units 11:56 17:21 20:31 RBC (4.30-5.90) m/uL Hgb (13.0-17.5) gm/dL Hct (39.0-53.0) % Lymphocytes # (1.0-4.8) k/uL Sodium (137-145) mmol/L Chloride (98-107) mmol/L BUN (9-20) mg/dL Creatinine (0.66-1.25) mg/dL Glucose (74-99) mg/dL POC Glucose (mg/dL) 318 H 130 H 221 H (75-99) mg/dL Calcium (8.4-10.2) mg/dL Phosphorus (2.5-4.5) mg/dL 11/26/17 11/26/17 Range/Units 05:09 05:09 RBC 3.85 L (4.30-5.90) m/uL Hgb 10.2 L (13.0-17.5) gm/dL Hct 31.7 L (39.0-53.0) % Lymphocytes # 0.9 L (1.0-4.8) k/uL Sodium 133 L (137-145) mmol/L Chloride 97 L (98-107) mmol/L BUN 45 H (9-20) mg/dL Creatinine 8.54 H* (0.66-1.25) mg/dL Glucose 138 H (74-99) mg/dL POC Glucose (mg/dL) (75-99) mg/dL Calcium 7.4 L (8.4-10.2) mg/dL Phosphorus 6.4 H (2.5-4.5) mg/dL Microbiology - Last 24 Hours (Table) 11/22/17 15:23 Blood Culture - Preliminary Blood No Growth after 72 hours Assessment and Plan Assessment: Assessment #1 acute renal failure likely to be prerenal and related to hypovolemia #2 hyperkalemia secondary to acute renal failure #3 diarrhea of unknown etiology #4 status post aortic valve replacement #5 mildly abnormal cardiac enzymes #6 hypertension #7 dyslipidemia Plan #1 I would consider a conservative medical approach for the mildly abnormal cardiac enzymes, giving the absence of chest pain and discomfort and the process of acute renal failure at this point #2 continue the current medical regimen including aspirin and metoprolol and hydralazine #3 continue monitor the kidney function and electrolytes #4 the echocardiogram showed normal LV function with normally functioning bioprosthetic aortic valve. #5 follow-up with the patient Thank you for allowing us participate in his care and we will continue following up with the patient
--- NOTE | 2017-11-26 08:52 | P.PN ---
Subjective Progress Note Date: 11/26/17 Principal diagnosis: Renal failure, acute kidney injury, hyperkalemia, Progress note dated 11/24/2017 This is an 82-year-old male seen in consultation with acute kidney injury and profound hyperkalemia EKG changes and weakness. The patient has undergone dialysis 2. In addition, he has a history of CAD diabetes hypertension hyperlipidemia prostate cancer, status post prostatectomy, aortic stenosis with aortic valve replacement and hypothyroidism. The patient is doing reasonably well. Remains on O2 2 L by nasal cannula. His IV is D5W with 3 ampules of sodium bicarbonate at 75 mL an hour. The patient remains on Cleveprex at 2 mg an hour and hydralazine 50 mg 3 times a day for blood pressure control. As an outpatient, the patient was on AN JEANMARIE inhibitor was not restarted because of his renal failure. The patient is feeling generally better. Remember, his major complaint was that of weakness. He has no prior history of any kidney disease. His chest x-ray is consistent with fluid overload and he would likely benefit from dialysis again with some fluid removal this time. His 2 previous dialysis treatments, resulted in no fluid being removed. Progress note dated 11/26/2017 82-year-old male seen in consultation with acute kidney injury and profound hyperkalemia with EKG changes and significant weakness. The patient has had 4 rounds of hemodialysis. During the last hemodialysis episode, the patient did have 2 L of fluid removed. His chest x-ray was showing significant fluid overload and I requested that fluid being removed improve his respiratory status. Currently, he is only on room air. He's not getting any supplemental IVs. He's feeling really well. He denies any pain or discomfort. The patient did not have a chest x-ray but is clear that his respiratory status is much improved. His laboratory data shows a white count of 9.1 hemoglobin 10.2 hematocrit 31.7 and a platelet count which is 368,000. In addition, his sodium is 133, potassium 5, chloride is 97, CO2 24, anion gap is normal at 12 and his BUN is 45 with a creatinine of 8.54. Microbiologic studies are thus far negative. Objective - Vital Signs Vital signs: Vital Signs Temp 98.2 F 11/26/17 04:00 Pulse 59 L 11/26/17 04:00 Resp 11 L 11/26/17 04:00 BP 139/72 10/21/18 04:00 Pulse Ox 93 L 11/26/17 04:00 Intake & Output 11/25/17 11/26/17 11/26/17 18:59 06:59 18:59 Intake Total 650 100 Output Total 65 41 Balance 585 59 Weight 38.9 kg Intake: IV 300 Sodium Chloride 0.9% 1, 200 000 ml @ 50 mls/hr IV . Q20H [facility] Rx#:[id number] Sodium Ferric Gluconat- 100 Sucrose 125 mg In Sodium Chloride 0.9% 100 ml @ 100 mls/hr IVPB DAILY [facility] Rx#:[id number] Intake, IV Titration 100 Amount Magnesium Sulfate-D5w Pmx 100 1 gm In Dextrose/Water 1 100ml.bag @ 100 mls/hr IVPB ONCE ONE Rx#: [id number] Oral 250 100 Output: Urine 65 41 Other: Voiding Method Indwelling Catheter Indwelling Catheter - Exam No acute distress, oriented 3. Currently, the patient is not requiring any supplemental oxygen. HEENT examination is grossly unremarkable. Mucous membranes are moist. No oral lesions. Neck supple. Full range of motion. No adenopathy thyromegaly or neck vein distention. Cardiovascular examination reveals regular rhythm rate. S1-S2 normal. No S3 or S4. No discernible murmur noted. Heart sounds are distant. Lungs reveal few scattered rhonchi. Crackles are minimal at best. Breath sounds are equal bilaterally. No wheezes. Breath sounds are improved today compared to yesterday's exam.. Abdomen soft bowel sounds are heard. No masses or tenderness. Extremities are intact. No cyanosis clubbing or edema. Skin is without rash or lesion. Neurologic examination is brief but nonfocal. - Labs CBC & Chem 7: 11/26/17 05:09 11/26/17 05:09 Labs: Abnormal Lab Results - Last 24 Hours (Table) 11/25/17 11/25/17 11/25/17 Range/Units 11:56 17:21 20:31 RBC (4.30-5.90) m/uL Hgb (13.0-17.5) gm/dL Hct (39.0-53.0) % Lymphocytes # (1.0-4.8) k/uL Sodium (137-145) mmol/L Chloride (98-107) mmol/L BUN (9-20) mg/dL Creatinine (0.66-1.25) mg/dL Glucose (74-99) mg/dL POC Glucose (mg/dL) 318 H 130 H 221 H (75-99) mg/dL Calcium (8.4-10.2) mg/dL Phosphorus (2.5-4.5) mg/dL 11/26/17 11/26/17 Range/Units 05:09 05:09 RBC 3.85 L (4.30-5.90) m/uL Hgb 10.2 L (13.0-17.5) gm/dL Hct 31.7 L (39.0-53.0) % Lymphocytes # 0.9 L (1.0-4.8) k/uL Sodium 133 L (137-145) mmol/L Chloride 97 L (98-107) mmol/L BUN 45 H (9-20) mg/dL Creatinine 8.54 H* (0.66-1.25) mg/dL Glucose 138 H (74-99) mg/dL POC Glucose (mg/dL) (75-99) mg/dL Calcium 7.4 L (8.4-10.2) mg/dL Phosphorus 6.4 H (2.5-4.5) mg/dL Microbiology - Last 24 Hours (Table) 11/22/17 15:23 Blood Culture - Preliminary Blood No Growth after 72 hours Assessment and Plan Assessment: Assessment Acute kidney injury with profound hyperkalemia, causing profound weakness and EKG changes. Emergent hemodialysis for symptomatic hyperkalemia History of CAD History of diabetes History of hypertension, with poor control. History of hyperlipidemia History of prostate cancer, status post prostatectomy Status post aortic valve replacement for aortic stenosis History of hypothyroidism Plan: Plan dated 11/23/2017 The patient received emergent hemodialysis last night. His current potassium is 5.8. His BUN is 82 and creatinine is 11.24. His hemoglobin is only 9.8 suggesting that there may be some chronicity to his renal insufficiency/ failure. Patient is feeling better today. He has a substantial history of aortic stenosis requiring aortic valve replacement done by Dr. Nazario years ago. In addition, he suffers from hypothyroidism, hyperlipidemia, hypertension , and diabetes mellitus. We will continue to follow carefully. Additional recommendations and suggestions are forthcoming. Prognosis is guarded. He remains on nasal O2. He remains on a D5W IV with 3 Amps of sodium bicarbonate at 100 mL an hour and Cleveprex 2 mg an hour. He was on Altace at home as his blood pressure medication and we will resume that here in the hospital. Critical care time 34 minutes Plan dated 11/24/2017 Current labs show a white count of 10, hemoglobin 10.2, hematocrit 30.2 and platelet count of 339,000. Sodium is 136 potassium 5.4 chloride 97 CO2 is 25 and anion gap is 14 and BUN and creatinine were 63 and 10.28 respectively. Chest x-ray is consistent with fluid overload. Medications are reviewed and include only aspirin, Cleveprex, Lovenox, IV fluids, hydralazine, [place], insulin , Synthroid, metoprolol, Narcan and Protonix. We will await nephrology input as it relates to both IV fluids and the patient's need for additional dialysis. From my perspective, dialysis with fluid removal would be beneficial to this patient. We will continue to follow. Prognosis remains guarded. Critical care time 33 minutes Plan dated 11/26/2017 The patient's microbiologic studies are thus far negative. His medications and labs are reviewed. His overall clinical picture and respiratory status is much improved because during dialysis yesterday, 2 L of fluid was removed. Currently , the patient is not requiring any supplemental oxygen. The patient is not requiring any IV fluids. His blood pressure is stable. The patient denies any pain or discomfort difficulty breathing coughing wheezing or phlegm production. Likewise, there is no nausea vomiting or diarrhea. The patient could be transferred out to [address] [place] [id number]. Critical care time 31 minutes Time with Patient: Greater than 30
[2017-11-26 08:57] LABS: Glucose,Whole Blood 130 mg/dL (75-99)
[2017-11-26] MEDS: INSULIN ASPART 100 UNIT/ML 1 ML 10 ML VIAL SQ SCH ×4 (08:59→21:26)
[2017-11-26] MEDS: PANTOPRAZOLE 40 MG TABLET PO SCH (09:42)
[2017-11-26] MEDS: CALCIUM ACETATE 667 MG CAP PO SCH ×3 (09:42→18:07)
[2017-11-26] MEDS: ENOXAPARIN 30 MG/0.3 ML SYRINGE SQ SCH (09:43)
[2017-11-26] MEDS: METOPROLOL TARTRATE 12.5 MG TAB PO SCH ×2 (09:43→21:26)
[2017-11-26] MEDS: hydrALAZINE HCL 25 MG TAB PO SCH ×3 (09:43→21:26)
[2017-11-26] MEDS: ASPIRIN 81 MG PO SCH (09:43)
[2017-11-26] MEDS: SODIUM FERRIC GLUCONAT-SUCROSE 125 MG in SODIUM CHLORIDE 0.9% 100 ML IVPB SCH (10:00)
--- NOTE | 2017-11-26 10:30 | P.PN ---
Subjective Patient is seen in follow-up for acute kidney injury. Creatinine was over 15 on admission and potassium level was 9. He has undergone 4 treatments of hemodialysis so far. Patient is awake and alert. Denies chest pain or shortness of breath. Oral intake is good. Patient remains oliguric. Vital signs are stable. General: The patient appeared well nourished and normally developed. HEENT: Head exam is unremarkable. Neck is without jugular venous distension. LUNGS: Breath sounds decreased. HEART: Rate and Rhythm are regular. First and second heart sounds normal. No murmurs, rubs or gallops. ABDOMEN: Abdominal exam reveals normal bowel sounds. Non-tender and non- distended. No evidence of peritonitis. EXTREMITITES: No clubbing, cyanosis, or edema. Objective - Vital Signs Vital signs: Vital Signs Temp 98.2 F 11/26/17 04:00 Pulse 66 11/26/17 10:00 Resp 26 H 11/26/17 10:00 BP 154/78 11/26/17 10:00 Pulse Ox 96 11/26/17 10:00 Intake & Output 11/25/17 11/26/17 11/26/17 18:59 06:59 18:59 Intake Total 650 100 Output Total 65 41 Balance 585 59 Weight 38.9 kg Intake: IV 300 Sodium Chloride 0.9% 1, 200 000 ml @ 50 mls/hr IV . Q20H [facility] Rx#:[id number] Sodium Ferric Gluconat- 100 Sucrose 125 mg In Sodium Chloride 0.9% 100 ml @ 100 mls/hr IVPB DAILY [facility] Rx#:[id number] Intake, IV Titration 100 Amount Magnesium Sulfate-D5w Pmx 100 1 gm In Dextrose/Water 1 100ml.bag @ 100 mls/hr IVPB ONCE ONE Rx#: [id number] Oral 250 100 Output: Urine 65 41 Other: Voiding Method Indwelling Catheter Indwelling Catheter Indwelling Catheter - Labs CBC & Chem 7: 11/26/17 05:09 11/26/17 05:09 Labs: Abnormal Lab Results - Last 24 Hours (Table) 11/25/17 11/25/17 11/25/17 Range/Units 11:56 17:21 20:31 RBC (4.30-5.90) m/uL Hgb (13.0-17.5) gm/dL Hct (39.0-53.0) % Lymphocytes # (1.0-4.8) k/uL Sodium (137-145) mmol/L Chloride (98-107) mmol/L BUN (9-20) mg/dL Creatinine (0.66-1.25) mg/dL Glucose (74-99) mg/dL POC Glucose (mg/dL) 318 H 130 H 221 H (75-99) mg/dL Calcium (8.4-10.2) mg/dL Phosphorus (2.5-4.5) mg/dL 11/26/17 11/26/17 11/26/17 Range/Units 05:09 05:09 07:33 RBC 3.85 L (4.30-5.90) m/uL Hgb 10.2 L (13.0-17.5) gm/dL Hct 31.7 L (39.0-53.0) % Lymphocytes # 0.9 L (1.0-4.8) k/uL Sodium 133 L (137-145) mmol/L Chloride 97 L (98-107) mmol/L BUN 45 H (9-20) mg/dL Creatinine 8.54 H* (0.66-1.25) mg/dL Glucose 138 H (74-99) mg/dL POC Glucose (mg/dL) 130 H (75-99) mg/dL Calcium 7.4 L (8.4-10.2) mg/dL Phosphorus 6.4 H (2.5-4.5) mg/dL Microbiology - Last 24 Hours (Table) 11/22/17 15:23 Blood Culture - Preliminary Blood No Growth after 72 hours Assessment and Plan Plan: Assessment: 1. Acute kidney injury secondary to ATN secondary to intravascular volume depletion from diarrhea and use of JEANMARIE inhibitor and nonsteroidals. Creatinine 15.6 on admission. Baseline creatinine is near 1. No evidence of hydronephrosis noted on renal ultrasound. Currently hemodialysis dependent. 2. Severe hyperkalemia secondary to ramipril, acute kidney injury and metabolic acidosis. Improved postdialysis. 3. Metabolic acidosis secondary to acute kidney injury. Patient was also on metformin. Improved. 4. Insulin-dependent diabetes mellitus. 5. Pyuria. 6. Benign hypertension. Controlled. 7. Hyperphosphatemia secondary to acute kidney injury. 8. Anemia. Iron deficiency noted. 9. Volume overload. Plan: Hold off on hemodialysis today. Lasix 80 mg IV once today. Quantify proteinuria. Check urine eosinophils. Check serologic workup. Pending above workup, will consider kidney biopsy in the near future. Avoid nephrotoxins. Continue to hold JEANMARIE inhibitor and metformin for now. Maintain current antihypertensives. Continue to monitor renal function and urine output closely. Continue to assess on a day-to-day basis for need for renal replacement therapy. Maintain PhosLo with meals. Ferrlecit 125 mg IV daily for 3 days. Third dose today.
[2017-11-26] MEDS ORDERED: FUROSEMIDE 10 MG/ML 10 ML VIAL IV STA (10:57)
--- NOTE | 2017-11-26 11:17 | P.PN ---
Subjective Progress Note Date: 11/26/17 This is a 82-year-old male patient who presented to the emergency room with complaints of increased weakness that has been occurring for the past 3-4 days. She has a known past medical history of prostate cancer, diabetes mellitus, hyperlipidemia and essential hypertension. Patient states that over the past week he's notes he has not been able to walk as far as he used to be able to. Chest x-ray completed showing rotated expiratory exam. Correlate to exclude pulmonary venous hypertension and interstitial edema. Initial labs showing creatinine of 15.61, bun 109 and potassium 9.0. Nephrology consulted immediately. Hemodialysis access per vascular disease and patient received hemodialysis in the emergency room last night. Patient is currently in the intensive care unit. Potassium now 5.8. Bun 82 and creatinine 11.24. Per nursing staff patient to receive hemodialysis again today per nephrology services. Troponin also elevated at 0.059. CT completed showing wide QRS rhythm and occasional premature ventricular complexes Cardiology services following. Per cardiology patient will be started on aspirin and small dose of metoprolol 12.5. 2-D echo will be ordered. Ultrasound of bladder and kidneys completed showing high no hydronephrosis. 3.5 cm cyst on the right. Dr. Do consulted for critical care consult. Patient currently on bicarb drip along with Cleveprex for blood pressure control. At this time patient states he is feeling improved. Patient denies chest pain or shortness of breath. Patient denies nausea vomiting or diarrhea. Patient denies any urinary burning or frequency. On 11/24/2017 patient is currently resting in bed. Creatinine 10.28 and bun 63. Potassium improving to 5.4. Per nursing staff patient to receive dialysis again today. At this time patient states he's feeling much improved. Patient denies chest pain or shortness breath. Patient denies nausea vomiting or diarrhea. Patient denies any urinary symptoms On 11/26/2017 patient is currently resting in bed. Creatinine remains elevated at 8.54 and bun 45. Potassium 5.0. Patient states he feels improved. at this time patient denies chest pains. Denies nausea. Denies urinary burning or frequency Objective - Vital Signs Vital signs: Vital Signs Temp 98.2 F 11/26/17 04:00 Pulse 66 11/26/17 10:00 Resp 26 H 11/26/17 10:00 BP 154/78 11/26/17 10:00 Pulse Ox 96 11/26/17 10:00 Intake & Output 11/25/17 11/26/17 11/26/17 18:59 06:59 18:59 Intake Total 650 100 Output Total 65 41 Balance 585 59 Weight 38.9 kg Intake: IV 300 Sodium Chloride 0.9% 1, 200 000 ml @ 50 mls/hr IV . Q20H [facility] Rx#:[id number] Sodium Ferric Gluconat- 100 Sucrose 125 mg In Sodium Chloride 0.9% 100 ml @ 100 mls/hr IVPB DAILY [facility] Rx#:[id number] Intake, IV Titration 100 Amount Magnesium Sulfate-D5w Pmx 100 1 gm In Dextrose/Water 1 100ml.bag @ 100 mls/hr IVPB ONCE ONE Rx#: [id number] Oral 250 100 Output: Urine 65 41 Other: Voiding Method Indwelling Catheter Indwelling Catheter Indwelling Catheter - Exam Head normocephalic Neck supple Lungs clear to auscultation bilaterally no wheezing or crackles Heart regular rate and rhythm S1-S2, no rub or gallop Abdomen is soft nontender nondistended positive bowel sounds no hepatosplenomegaly Extremities no edema Neuro alert and orientated to 3 - Labs CBC & Chem 7: 11/26/17 05:09 11/26/17 05:09 Labs: Abnormal Lab Results - Last 24 Hours (Table) 11/25/17 11/25/17 11/25/17 Range/Units 11:56 17:21 20:31 RBC (4.30-5.90) m/uL Hgb (13.0-17.5) gm/dL Hct (39.0-53.0) % Lymphocytes # (1.0-4.8) k/uL Sodium (137-145) mmol/L Chloride (98-107) mmol/L BUN (9-20) mg/dL Creatinine (0.66-1.25) mg/dL Glucose (74-99) mg/dL POC Glucose (mg/dL) 318 H 130 H 221 H (75-99) mg/dL Calcium (8.4-10.2) mg/dL Phosphorus (2.5-4.5) mg/dL 11/26/17 11/26/17 11/26/17 Range/Units 05:09 05:09 07:33 RBC 3.85 L (4.30-5.90) m/uL Hgb 10.2 L (13.0-17.5) gm/dL Hct 31.7 L (39.0-53.0) % Lymphocytes # 0.9 L (1.0-4.8) k/uL Sodium 133 L (137-145) mmol/L Chloride 97 L (98-107) mmol/L BUN 45 H (9-20) mg/dL Creatinine 8.54 H* (0.66-1.25) mg/dL Glucose 138 H (74-99) mg/dL POC Glucose (mg/dL) 130 H (75-99) mg/dL Calcium 7.4 L (8.4-10.2) mg/dL Phosphorus 6.4 H (2.5-4.5) mg/dL Microbiology - Last 24 Hours (Table) 11/22/17 15:23 Blood Culture - Preliminary Blood No Growth after 72 hours Assessment and Plan Assessment: 1. Acute kidney injury with profound hyperkalemia causing profound weakness and EKG changes. Initial potassium 9.0, creatinine 15.61 and bun 109. Patient received emergency exit per Dr. Mcdaniel to right femoral. Patient received T chemo dialysis on 1017 and will again receive hemodialysis today at 1018. Nephrology services following. Ultrasound of the kidneys and bladder completed showing no hydronephrosis. 2.5 cm benign cyst on the right. Dr. Do following for critical care. Patient currently on bicarb drip. Patient has received dialysis 2 days in row. Patient received dialysis 4 days in a row. Patient will not dialysis today. Creatinine 8.54 and bun 45. 2. Hyperkalemia. Initial potassium 9.0. Patient received dialysis. Potassium improving to 5.8. Patient to receive dialysis again today. potassium 5.0 3. Elevated troponin. Troponin 0.059. EKG completed in emergency room showing wide QRS rhythm with occasional premature ventricular complexes. Cardiology service consulted. 2-D echo completed showing an EF of 55-60%. Per cardiology services continue with conservative medical approach with mild abnormal cardiac enzymes. Patient will be restarted and aspirin and Lopressor 12.5 twice a day 4. History of coronary artery disease 5. History of diabetes mellitus. Metformin DC'd. Sliding scale insulin coverage has been added 6. History of essential hypertension. Patient currently on cleveprex drip for Blood pressure control. Cleveprex Has been discontinued 7. History of hyperlipidemia 8. History of prostate cancer. Status post prostatectomy 9. Status post aortic valve replacement for aortic stenosis 10. History of hypothyroidism. Synthroid resumed 11. Anemia. Possibly related to chronic kidney disease. Iron studies will be ordered DVT prophylaxis Lovenox GI prophylaxis Protonix I performed an examination of the patient and discussed their management with the Nurse Practitioner. I have reviewed the Nurse Practitioner's notes and agree with the documented findings and plan of care
[2017-11-26 12:23] LABS: Glucose,Whole Blood 198 mg/dL (75-99)
[2017-11-26 17:13] LABS: Glucose,Whole Blood 223 mg/dL (75-99)
[2017-11-26 21:14] LABS: Glucose,Whole Blood 265 mg/dL (75-99)
[2017-11-26] MEDS: CLEVIDIPINE BUTYRATE 25 MG in EMPTY BAG 1 BAG IV SCH (21:26)
[2017-11-26] MEDS: LEVOTHYROXINE 25 MCG TAB PO SCH (21:26)
[2017-11-27 05:54] LABS: Basophils % (A) 0 %; Eosinophils # (A) 0.2 k/uL (0-0.7); Eosinophils % (A) 2 %; HCT 30.8 % (39.0-53.0); HGB 10.1 gm/dL (13.0-17.5); Lymphocytes % (A) 9 %; MCH 27.1 pg (25.0-35.0); MCV 82.2 fL (80.0-100.0); Mean Platelet Volume 6.9; Monocytes # (A) 0.9 k/uL (0-1.0); Monocytes % (A) 9 %; Neutrophils # (A) 8.7 k/uL (1.3-7.7); Neutrophils % (A) 79 %; Platelet Count 374 k/uL (150-450); RBC 3.74 m/uL (4.30-5.90); RDW 14.4 % (11.5-15.5); WBC 11.1 k/uL (3.8-10.6)
[2017-11-27 06:09] LABS: Calcium 7.4 mg/dL (8.4-10.2); Phosphorus 7.4 mg/dL (2.5-4.5); Potassium 4.9 mmol/L (3.5-5.1)
[2017-11-27 07:19] LABS: Glucose,Whole Blood 167 mg/dL (75-99)
--- NOTE | 2017-11-27 07:33 | P.PN ---
Subjective Progress Note Date: 11/27/17 Principal diagnosis: Status post aVR/acute renal failure This is a pleasant 82-year-old gentleman who sees Dr. Meléndez in the office on regular basis with a past medical history significant for aortic valve disease and status post aortic valve replacement in 2013, obesity, hypertension, dyslipidemia, presented to the emergency room complaining of weakness. For the last several days, the patient has been struggling with diarrhea. For the last 24 hours he was feeling very weak and tired and almost losing his consciousness. Yesterday he was unable to walk at home because he was so fatigued and tired. He did not have any syncope. No symptoms of chest pain or chest discomfort. No fever or chills and no abdominal pain as well as. He presented to the emergency room where he was found to be in acute renal failure with a creatinine of 15 and also he was found to be hyperkalemic with a potassium of 9. The patient received an emergent dialysis yesterday with improvement of the creatinine today to 11 as well as in normalization of the potassium. The EKG upon presenting to the hospital showed wide QRS consistent with hyperkalemia and the subsequent EKG from this morning showed sinus rhythm with nonspecific changes and PVCs. On follow-up with the patient today, November 272017, he remains asymptomatic from a cardiovascular standpoint of view and denies having any chest pain or chest discomfort. Hemodynamically he is stable and the blood pressure is controlled on the current dose of hydralazine as well as metoprolol. He is also on aspirin. The creatinine is worse today and is about 10. The patient has been followed by the nephrology service. The echocardiogram revealed normal LV function with normally functioning bioprosthetic aortic valve. Objective - Vital Signs Vital signs: Vital Signs Temp 98.2 F 11/27/17 04:00 Pulse 57 L 11/27/17 04:00 Resp 9 L 11/27/17 04:00 BP 136/54 11/27/17 04:00 Pulse Ox 96 11/27/17 04:00 Intake & Output 11/26/17 11/27/17 11/27/17 18:59 06:59 18:59 Intake Total 950 Output Total 58 67 Balance 892 -67 Weight 124 kg Intake: Oral 950 Output: Urine 58 67 Other: Voiding Method Indwelling Catheter Indwelling Catheter - Constitutional General appearance: Present: no acute distress - Respiratory Respiratory: bilateral: CTA - Cardiovascular Rhythm: regular Heart sounds: normal: S1, S2 - Labs CBC & Chem 7: 11/27/17 04:59 11/27/17 04:59 Labs: Abnormal Lab Results - Last 24 Hours (Table) 11/26/17 11/26/17 11/26/17 Range/Units 07:33 12:13 15:30 WBC (3.8-10.6) k/uL RBC (4.30-5.90) m/uL Hgb (13.0-17.5) gm/dL Hct (39.0-53.0) % Neutrophils # (1.3-7.7) k/uL Sodium (137-145) mmol/L Chloride (98-107) mmol/L BUN (9-20) mg/dL Creatinine (0.66-1.25) mg/dL Glucose (74-99) mg/dL POC Glucose (mg/dL) 130 H 198 H (75-99) mg/dL Calcium (8.4-10.2) mg/dL Phosphorus (2.5-4.5) mg/dL U Random Total Protein >600 H (<12) mg/dL 11/26/17 11/26/17 11/27/17 Range/Units 16:55 21:00 04:59 WBC 11.1 H (3.8-10.6) k/uL RBC 3.74 L (4.30-5.90) m/uL Hgb 10.1 L (13.0-17.5) gm/dL Hct 30.8 L (39.0-53.0) % Neutrophils # 8.7 H (1.3-7.7) k/uL Sodium (137-145) mmol/L Chloride (98-107) mmol/L BUN (9-20) mg/dL Creatinine (0.66-1.25) mg/dL Glucose (74-99) mg/dL POC Glucose (mg/dL) 223 H 265 H (75-99) mg/dL Calcium (8.4-10.2) mg/dL Phosphorus (2.5-4.5) mg/dL U Random Total Protein (<12) mg/dL 11/27/17 11/27/17 Range/Units 04:59 07:17 WBC (3.8-10.6) k/uL RBC (4.30-5.90) m/uL Hgb (13.0-17.5) gm/dL Hct (39.0-53.0) % Neutrophils # (1.3-7.7) k/uL Sodium 132 L (137-145) mmol/L Chloride 96 L (98-107) mmol/L BUN 57 H (9-20) mg/dL Creatinine 10.26 H* (0.66-1.25) mg/dL Glucose 135 H (74-99) mg/dL POC Glucose (mg/dL) 167 H (75-99) mg/dL Calcium 7.4 L (8.4-10.2) mg/dL Phosphorus 7.4 H (2.5-4.5) mg/dL U Random Total Protein (<12) mg/dL Microbiology - Last 24 Hours (Table) 11/22/17 15:23 Blood Culture - Preliminary Blood No Growth after 96 hours Assessment and Plan Assessment: Assessment #1 acute renal failure likely to be prerenal and related to hypovolemia #2 hyperkalemia secondary to acute renal failure #3 diarrhea of unknown etiology #4 status post aortic valve replacement #5 mildly abnormal cardiac enzymes #6 hypertension #7 dyslipidemia Plan #1 I would consider a conservative medical approach for the mildly abnormal cardiac enzymes, giving the absence of chest pain and discomfort and the process of acute renal failure at this point #2 continue the current medical regimen including aspirin and metoprolol and hydralazine. The blood pressure seems to be well-controlled on the current medical regimen. #3 continue monitor the kidney function and electrolytes #4 the echocardiogram showed normal LV function with normally functioning bioprosthetic aortic valve. #5 follow-up with the patient Thank you for allowing us participate in his care and we will continue following up with the patient
[2017-11-27] MEDS: CALCIUM ACETATE 667 MG CAP PO SCH ×3 (08:25→17:17)
[2017-11-27] MEDS: hydrALAZINE HCL 25 MG TAB PO SCH ×3 (08:25→21:19)
[2017-11-27] MEDS: PANTOPRAZOLE 40 MG TABLET PO SCH (08:25)
[2017-11-27] MEDS: ASPIRIN 81 MG PO SCH (08:25)
[2017-11-27] MEDS: METOPROLOL TARTRATE 12.5 MG TAB PO SCH ×2 (08:25→21:20)
[2017-11-27] MEDS: ENOXAPARIN 30 MG/0.3 ML SYRINGE SQ SCH (08:25)
[2017-11-27] MEDS: INSULIN ASPART 100 UNIT/ML 1 ML 10 ML VIAL SQ SCH ×4 (08:25→21:20)
[2017-11-27 09:39] LABS: DNA Double-Stranded NEGATIVE (NEGATIVE)
[2017-11-27] MEDS: SODIUM FERRIC GLUCONAT-SUCROSE 125 MG in SODIUM CHLORIDE 0.9% 100 ML IVPB SCH (09:59)
[2017-11-27] MEDS ORDERED: DESMOPRESSIN ACETATE IVPB ONE (10:14)
[2017-11-27] MEDS ORDERED: SODIUM CHLORIDE 0.9% IVPB ONE (10:14)
[2017-11-27 10:15] LABS: Protein, Total 5.3 g/dL (6.2-8.2)
--- NOTE | 2017-11-27 10:15 | P.PN ---
Subjective Patient is seen in follow-up for acute kidney injury. Creatinine was over 15 on admission and potassium level was 9. He has undergone 4 treatments of hemodialysis so far. Patient is awake and alert. Denies chest pain or shortness of breath. Oral intake is good. Patient remains oliguric. He received 80 mg of IV Lasix yesterday. Vital signs are stable. General: The patient appeared well nourished and normally developed. HEENT: Head exam is unremarkable. Neck is without jugular venous distension. LUNGS: Breath sounds decreased. HEART: Rate and Rhythm are regular. First and second heart sounds normal. No murmurs, rubs or gallops. ABDOMEN: Abdominal exam reveals normal bowel sounds. Non-tender and non- distended. No evidence of peritonitis. EXTREMITITES: No clubbing, cyanosis, or edema. Objective - Vital Signs Vital signs: Vital Signs Temp 97.8 F 11/27/17 08:00 Pulse 63 11/27/17 08:00 Resp 22 11/27/17 08:00 BP 162/78 11/27/17 08:00 Pulse Ox 97 11/27/17 08:00 Intake & Output 11/26/17 11/27/17 11/27/17 18:59 06:59 18:59 Intake Total 950 240 Output Total 58 67 Balance 892 -67 240 Weight 124 kg Intake: Oral 950 240 Output: Urine 58 67 Other: Voiding Method Indwelling Catheter Indwelling Catheter - Labs CBC & Chem 7: 11/27/17 04:59 11/27/17 04:59 Labs: Abnormal Lab Results - Last 24 Hours (Table) 11/26/17 11/26/17 11/26/17 Range/Units 12:13 15:30 16:55 WBC (3.8-10.6) k/uL RBC (4.30-5.90) m/uL Hgb (13.0-17.5) gm/dL Hct (39.0-53.0) % Neutrophils # (1.3-7.7) k/uL Sodium (137-145) mmol/L Chloride (98-107) mmol/L BUN (9-20) mg/dL Creatinine (0.66-1.25) mg/dL Glucose (74-99) mg/dL POC Glucose (mg/dL) 198 H 223 H (75-99) mg/dL Calcium (8.4-10.2) mg/dL Phosphorus (2.5-4.5) mg/dL U Random Total Protein >600 H (<12) mg/dL 11/26/17 11/27/17 11/27/17 Range/Units 21:00 04:59 04:59 WBC 11.1 H (3.8-10.6) k/uL RBC 3.74 L (4.30-5.90) m/uL Hgb 10.1 L (13.0-17.5) gm/dL Hct 30.8 L (39.0-53.0) % Neutrophils # 8.7 H (1.3-7.7) k/uL Sodium 132 L (137-145) mmol/L Chloride 96 L (98-107) mmol/L BUN 57 H (9-20) mg/dL Creatinine 10.26 H* (0.66-1.25) mg/dL Glucose 135 H (74-99) mg/dL POC Glucose (mg/dL) 265 H (75-99) mg/dL Calcium 7.4 L (8.4-10.2) mg/dL Phosphorus 7.4 H (2.5-4.5) mg/dL U Random Total Protein (<12) mg/dL 11/27/17 Range/Units 07:17 WBC (3.8-10.6) k/uL RBC (4.30-5.90) m/uL Hgb (13.0-17.5) gm/dL Hct (39.0-53.0) % Neutrophils # (1.3-7.7) k/uL Sodium (137-145) mmol/L Chloride (98-107) mmol/L BUN (9-20) mg/dL Creatinine (0.66-1.25) mg/dL Glucose (74-99) mg/dL POC Glucose (mg/dL) 167 H (75-99) mg/dL Calcium (8.4-10.2) mg/dL Phosphorus (2.5-4.5) mg/dL U Random Total Protein (<12) mg/dL Microbiology - Last 24 Hours (Table) 11/22/17 15:23 Blood Culture - Preliminary Blood No Growth after 96 hours Assessment and Plan Plan: Assessment: 1. Acute kidney injury secondary to ATN secondary to intravascular volume depletion from diarrhea and use of JEANMARIE inhibitor and nonsteroidals. Creatinine 15.6 on admission. Baseline creatinine is near 1. No evidence of hydronephrosis noted on renal ultrasound. Currently hemodialysis dependent. He is noted to have nephrotic range proteinuria. Urine eosinophils negative. MANUELITO, double-stranded DNA antibody, Hepatitis panel negative. 2. Severe hyperkalemia secondary to ramipril, acute kidney injury and metabolic acidosis. Improved postdialysis. 3. Metabolic acidosis secondary to acute kidney injury. Patient was also on metformin. Improved. 4. Insulin-dependent diabetes mellitus. 5. Pyuria. 6. Benign hypertension. Controlled. 7. Hyperphosphatemia secondary to acute kidney injury. 8. Anemia. Iron deficiency noted. Status post 3 doses of IV iron. 9. Volume overload. Plan: Hemodialysis today. Follow-up serologies. Scheduled for kidney biopsy. I will give him DDAVP one hour prior to kidney biopsy. Avoid nephrotoxins. Continue to hold JEANMARIE inhibitor and metformin for now. Maintain current antihypertensives. Continue to monitor renal function and urine output closely. Continue to assess on a day-to-day basis for need for renal replacement therapy. Maintain PhosLo with meals.
[2017-11-27 11:01] LABS: Complement C3 85.5 mg/dL (80.0-207.0)
--- NOTE | 2017-11-27 11:18 | P.PN ---
Subjective Progress Note Date: 11/27/17 This is a 82-year-old male patient who presented to the emergency room with complaints of increased weakness that has been occurring for the past 3-4 days. She has a known past medical history of prostate cancer, diabetes mellitus, hyperlipidemia and essential hypertension. Patient states that over the past week he's notes he has not been able to walk as far as he used to be able to. Chest x-ray completed showing rotated expiratory exam. Correlate to exclude pulmonary venous hypertension and interstitial edema. Initial labs showing creatinine of 15.61, bun 109 and potassium 9.0. Nephrology consulted immediately. Hemodialysis access per vascular disease and patient received hemodialysis in the emergency room last night. Patient is currently in the intensive care unit. Potassium now 5.8. Bun 82 and creatinine 11.24. Per nursing staff patient to receive hemodialysis again today per nephrology services. Troponin also elevated at 0.059. CT completed showing wide QRS rhythm and occasional premature ventricular complexes Cardiology services following. Per cardiology patient will be started on aspirin and small dose of metoprolol 12.5. 2-D echo will be ordered. Ultrasound of bladder and kidneys completed showing high no hydronephrosis. 3.5 cm cyst on the right. Dr. Do consulted for critical care consult. Patient currently on bicarb drip along with Cleveprex for blood pressure control. At this time patient states he is feeling improved. Patient denies chest pain or shortness of breath. Patient denies nausea vomiting or diarrhea. Patient denies any urinary burning or frequency. On 11/24/2017 patient is currently resting in bed. Creatinine 10.28 and bun 63. Potassium improving to 5.4. Per nursing staff patient to receive dialysis again today. At this time patient states he's feeling much improved. Patient denies chest pain or shortness breath. Patient denies nausea vomiting or diarrhea. Patient denies any urinary symptoms On 11/26/2017 patient is currently resting in bed. Creatinine remains elevated at 8.54 and bun 45. Potassium 5.0. Patient states he feels improved. at this time patient denies chest pains. Denies nausea. Denies urinary burning or frequency On 11/27/2017 patient is currently resting in bed. Patient denies any complaints at this time. Creatinine increasing to 10.26 and bun 57. Patient did not receive dialysis yesterday. Awaiting nephrology input in regards to hemodialysis today. This time patient denies chest pain or shortness of breath. Patient denies nausea vomiting or diarrhea. Patient denies any urinary burning or frequency Objective - Vital Signs Vital signs: Vital Signs Temp 97.8 F 11/27/17 08:00 Pulse 63 11/27/17 08:00 Resp 22 11/27/17 08:00 BP 162/78 11/27/17 08:00 Pulse Ox 97 11/27/17 08:00 Intake & Output 11/26/17 11/27/17 11/27/17 18:59 06:59 18:59 Intake Total 950 240 Output Total 58 67 Balance 892 -67 240 Weight 124 kg Intake: Oral 950 240 Output: Urine 58 67 Other: Voiding Method Indwelling Catheter Indwelling Catheter Indwelling Catheter - Exam Head normocephalic Neck supple Lungs clear to auscultation bilaterally no wheezing or crackles Heart regular rate and rhythm S1-S2, no rub or gallop Abdomen is soft nontender nondistended positive bowel sounds no hepatosplenomegaly Extremities no edema Neuro alert and orientated to 3 - Labs CBC & Chem 7: 11/27/17 04:59 11/27/17 04:59 Labs: Abnormal Lab Results - Last 24 Hours (Table) 11/26/17 11/26/17 11/26/17 Range/Units 11:22 12:13 15:30 WBC (3.8-10.6) k/uL RBC (4.30-5.90) m/uL Hgb (13.0-17.5) gm/dL Hct (39.0-53.0) % Neutrophils # (1.3-7.7) k/uL Sodium (137-145) mmol/L Chloride (98-107) mmol/L BUN (9-20) mg/dL Creatinine (0.66-1.25) mg/dL Glucose (74-99) mg/dL POC Glucose (mg/dL) 198 H (75-99) mg/dL Calcium (8.4-10.2) mg/dL Phosphorus (2.5-4.5) mg/dL Total Protein (PEP) 5.3 L (6.2-8.2) g/dL U Random Total Protein >600 H (<12) mg/dL 10/21/18 10/21/18 10/22/18 Range/Units 16:55 21:00 04:59 WBC 11.1 H (3.8-10.6) k/uL RBC 3.74 L (4.30-5.90) m/uL Hgb 10.1 L (13.0-17.5) gm/dL Hct 30.8 L (39.0-53.0) % Neutrophils # 8.7 H (1.3-7.7) k/uL Sodium (137-145) mmol/L Chloride (98-107) mmol/L BUN (9-20) mg/dL Creatinine (0.66-1.25) mg/dL Glucose (74-99) mg/dL POC Glucose (mg/dL) 223 H 265 H (75-99) mg/dL Calcium (8.4-10.2) mg/dL Phosphorus (2.5-4.5) mg/dL Total Protein (PEP) (6.2-8.2) g/dL U Random Total Protein (<12) mg/dL 11/27/17 11/27/17 Range/Units 04:59 07:17 WBC (3.8-10.6) k/uL RBC (4.30-5.90) m/uL Hgb (13.0-17.5) gm/dL Hct (39.0-53.0) % Neutrophils # (1.3-7.7) k/uL Sodium 132 L (137-145) mmol/L Chloride 96 L (98-107) mmol/L BUN 57 H (9-20) mg/dL Creatinine 10.26 H* (0.66-1.25) mg/dL Glucose 135 H (74-99) mg/dL POC Glucose (mg/dL) 167 H (75-99) mg/dL Calcium 7.4 L (8.4-10.2) mg/dL Phosphorus 7.4 H (2.5-4.5) mg/dL Total Protein (PEP) (6.2-8.2) g/dL U Random Total Protein (<12) mg/dL Microbiology - Last 24 Hours (Table) 11/22/17 15:23 Blood Culture - Preliminary Blood No Growth after 96 hours Assessment and Plan Assessment: 1. Acute kidney injury with profound hyperkalemia causing profound weakness and EKG changes. Initial potassium 9.0, creatinine 15.61 and bun 109. Patient received emergency exit per Dr. Mcdaniel to right femoral. Patient received T chemo dialysis on 1017 and will again receive hemodialysis today at 1018. Nephrology services following. Ultrasound of the kidneys and bladder completed showing no hydronephrosis. 2.5 cm benign cyst on the right. Dr. Do following for critical care. Patient currently on bicarb drip. Patient has received dialysis 2 days in row. Patient received dialysis 4 days in a row. Patient will not dialysis today. Creatinine 10.26 and bun 57. Patient to get liver biopsy today per nephrology services patient to get hemodialysis today 2. Hyperkalemia. Initial potassium 9.0. Patient received dialysis. Potassium improving to 5.8. Patient to receive dialysis again today. potassium 4.9 3. Elevated troponin. Troponin 0.059. EKG completed in emergency room showing wide QRS rhythm with occasional premature ventricular complexes. Cardiology service consulted. 2-D echo completed showing an EF of 55-60%. Per cardiology services continue with conservative medical approach with mild abnormal cardiac enzymes. Patient will be restarted and aspirin and Lopressor 12.5 twice a day 4. History of coronary artery disease 5. History of diabetes mellitus. Metformin DC'd. Sliding scale insulin coverage has been added 6. History of essential hypertension. Patient currently on cleveprex drip for Blood pressure control. Cleveprex Has been discontinued 7. History of hyperlipidemia 8. History of prostate cancer. Status post prostatectomy 9. Status post aortic valve replacement for aortic stenosis 10. History of hypothyroidism. Synthroid resumed 11. Anemia. Possibly related to chronic kidney disease. Iron saturation 11.11 and Iron 31. Patient has received 3 doses of IV iron per nephrology services DVT prophylaxis heparin GI prophylaxis Protonix I performed an examination of the patient and discussed their management with the Nurse Practitioner. I have reviewed the Nurse Practitioner's notes and agree with the documented findings and plan of care
--- NOTE | 2017-11-27 11:21 | P.PN ---
Subjective Progress Note Date: 11/27/17 On 11/27/2017, the patient is awake and alert. No signs of any significant fluid overload. The patient remains in acute kidney injury. The exact cause is not clear although nephrology think this is an acute kidney injury from ATN due to factors including nonsteroidal anti-inflammatory medication and JEANMARIE inhibitor's. The patient has received 4 sessions of hemodialysis. Another session will be done today. His initial presentation was with a creatinine of 15 and it potassium level of 9 both are improved and her potassium level is normalized. The patient remains oliguric. He received 80 mg of IV Lasix yesterday with limited improvement in urine output. No encephalopathy. No headaches. No altered mentation. He is slow in answering questions however he seems to be appropriate. No chest pain. No nausea or vomiting. No diarrhea or abdominal pain. His hemoglobin is at 10.1. Creatinine is at 10.2. Potassium level from today is 4.9. He is being considered for a kidney biopsy. Nephrology is on the case. Objective - Vital Signs Vital signs: Vital Signs Temp 97.8 F 11/27/17 08:00 Pulse 63 11/27/17 08:00 Resp 22 11/27/17 08:00 BP 162/78 11/27/17 08:00 Pulse Ox 97 11/27/17 08:00 Intake & Output 11/26/17 11/27/17 11/27/17 18:59 06:59 18:59 Intake Total 950 240 Output Total 58 67 Balance 892 -67 240 Weight 124 kg Intake: Oral 950 240 Output: Urine 58 67 Other: Voiding Method Indwelling Catheter Indwelling Catheter Indwelling Catheter - Exam No acute distress, oriented 3. Currently, the patient is not requiring any supplemental oxygen. HEENT examination is grossly unremarkable. Mucous membranes are moist. No oral lesions. Neck supple. Full range of motion. No adenopathy thyromegaly or neck vein distention. Cardiovascular examination reveals regular rhythm rate. S1-S2 normal. No S3 or S4. No discernible murmur noted. Heart sounds are distant. There is a scar of previous thoracotomy over the anterior chest area. Lungs reveal few scattered rhonchi. Crackles are minimal at best. Breath sounds are equal bilaterally. No wheezes. Breath sounds are improved today compared to yesterday's exam.. Abdomen soft bowel sounds are heard. No masses or tenderness. Extremities are intact. No cyanosis clubbing or edema. Skin is without rash or lesion. Neurologic examination is brief but nonfocal. - Labs CBC & Chem 7: 11/27/17 04:59 11/27/17 04:59 Labs: Abnormal Lab Results - Last 24 Hours (Table) 11/26/17 11/26/17 11/26/17 Range/Units 11:22 12:13 15:30 WBC (3.8-10.6) k/uL RBC (4.30-5.90) m/uL Hgb (13.0-17.5) gm/dL Hct (39.0-53.0) % Neutrophils # (1.3-7.7) k/uL Sodium (137-145) mmol/L Chloride (98-107) mmol/L BUN (9-20) mg/dL Creatinine (0.66-1.25) mg/dL Glucose (74-99) mg/dL POC Glucose (mg/dL) 198 H (75-99) mg/dL Calcium (8.4-10.2) mg/dL Phosphorus (2.5-4.5) mg/dL Total Protein (PEP) 5.3 L (6.2-8.2) g/dL U Random Total Protein >600 H (<12) mg/dL 11/26/17 11/26/17 11/27/17 Range/Units 16:55 21:00 04:59 WBC 11.1 H (3.8-10.6) k/uL RBC 3.74 L (4.30-5.90) m/uL Hgb 10.1 L (13.0-17.5) gm/dL Hct 30.8 L (39.0-53.0) % Neutrophils # 8.7 H (1.3-7.7) k/uL Sodium (137-145) mmol/L Chloride (98-107) mmol/L BUN (9-20) mg/dL Creatinine (0.66-1.25) mg/dL Glucose (74-99) mg/dL POC Glucose (mg/dL) 223 H 265 H (75-99) mg/dL Calcium (8.4-10.2) mg/dL Phosphorus (2.5-4.5) mg/dL Total Protein (PEP) (6.2-8.2) g/dL U Random Total Protein (<12) mg/dL 11/27/17 11/27/17 Range/Units 04:59 07:17 WBC (3.8-10.6) k/uL RBC (4.30-5.90) m/uL Hgb (13.0-17.5) gm/dL Hct (39.0-53.0) % Neutrophils # (1.3-7.7) k/uL Sodium 132 L (137-145) mmol/L Chloride 96 L (98-107) mmol/L BUN 57 H (9-20) mg/dL Creatinine 10.26 H* (0.66-1.25) mg/dL Glucose 135 H (74-99) mg/dL POC Glucose (mg/dL) 167 H (75-99) mg/dL Calcium 7.4 L (8.4-10.2) mg/dL Phosphorus 7.4 H (2.5-4.5) mg/dL Total Protein (PEP) (6.2-8.2) g/dL U Random Total Protein (<12) mg/dL Microbiology - Last 24 Hours (Table) 11/22/17 15:23 Blood Culture - Preliminary Blood No Growth after 96 hours Assessment and Plan Plan: 1 Acute kidney injury with profound hyperkalemia, causing profound weakness and EKG changes. The patient presented with a creatinine above 15. The patient's potassium level was also at 9.0. He has audible received 4 sessions of hemodialysis. No improvement. He remains oliguric. He is being considered for kidney biopsy. The patient is going to undergo another session of dialysis today. 2 symptomatic hyperkalemia, recovered 3 History of CAD 4 History of diabetes 5 History of hypertension, currently under better control and the patient is currently off the clavipectoral drip 6 History of hyperlipidemia 7 History of prostate cancer, status post prostatectomy 8 Status post aortic valve replacement for aortic stenosis 9 History of hypothyroidism Discontinue the Lovenox and switch this patient to heparin subcu. Avoid nephrotoxic agents. Monitor blood pressure. Monitor urine output. Monitor renal function. Monitor electrolytes. Dialysis today. Kidney biopsy per interventional radiology. We'll continue to follow. The autoimmune workup was all within normal limits. The hepatitis profile is also within normal limits.
[2017-11-27 12:10] LABS: Glucose,Whole Blood 167 mg/dL (75-99)
[2017-11-27 17:08] LABS: Glucose,Whole Blood 278 mg/dL (75-99)
[2017-11-27] MEDS: HEPARIN SODIUM,PORCINE 5,000 UNIT/ML 1 ML VIAL SQ SCH (17:18)
[2017-11-27 21:05] LABS: Glucose,Whole Blood 137 mg/dL (75-99)
[2017-11-27] MEDS: LEVOTHYROXINE 25 MCG TAB PO SCH (21:19)
[2017-11-27] MEDS: CLEVIDIPINE BUTYRATE 25 MG in EMPTY BAG 1 BAG IV SCH (21:26)
[2017-11-28] MEDS: HEPARIN SODIUM,PORCINE 5,000 UNIT/ML 1 ML VIAL SQ SCH ×2 (00:21→20:21)
[2017-11-28 07:20] LABS: Glucose,Whole Blood 137 mg/dL (75-99)
[2017-11-28 07:34] LABS: Basophils % (A) 0 %; Eosinophils # (A) 0.2 k/uL (0-0.7); Eosinophils % (A) 2 %; HCT 30.3 % (39.0-53.0); HGB 9.9 gm/dL (13.0-17.5); Lymphocytes # (A) 0.8 k/uL (1.0-4.8); Lymphocytes % (A) 7 %; MCH 26.9 pg (25.0-35.0); MCHC 32.6 g/dL (31.0-37.0); MCV 82.4 fL (80.0-100.0); Mean Platelet Volume 6.9; Monocytes % (A) 10 %; Neutrophils # (A) 8.1 k/uL (1.3-7.7); Neutrophils % (A) 78 %; Platelet Count 363 k/uL (150-450); RBC 3.67 m/uL (4.30-5.90); RDW 14.7 % (11.5-15.5); WBC 10.4 k/uL (3.8-10.6)
[2017-11-28 08:10] LABS: Albumin 2.8 g/dL (3.5-5.0); Calcium 7.4 mg/dL (8.4-10.2); Potassium 4.6 mmol/L (3.5-5.1); Total Bilirubin 0.5 mg/dL (0.2-1.3); Total Protein 5.4 g/dL (6.3-8.2)
[2017-11-28] MEDS: INSULIN ASPART 100 UNIT/ML 1 ML 10 ML VIAL SQ SCH ×4 (08:11→20:21)
[2017-11-28] MEDS ORDERED: SODIUM CHLORIDE 0.9% 500 ML 500 ML IV ONE (08:20)
[2017-11-28] MEDS: LIDOCAINE 1% INJ 10MG/ML (20 ML MDV) SQ ONE ×2 (08:25→08:33)
[2017-11-28] MEDS ORDERED: HEPARIN SODIUM 1,000 UN/ML (10ML VL) IV ONE (08:46)
[2017-11-28] MEDS: PANTOPRAZOLE 40 MG TABLET PO SCH (09:26)
[2017-11-28] MEDS: CALCIUM ACETATE 667 MG CAP PO SCH ×3 (09:26→16:37)
[2017-11-28] MEDS ORDERED: FUROSEMIDE 10 MG/ML 10 ML VIAL IV STA (09:49)
--- NOTE | 2017-11-28 09:51 | P.PN ---
Subjective Patient is seen in follow-up for acute kidney injury. Creatinine was over 15 on admission and potassium level was 9. He is currently hemodialysis dependent. Patient is awake and alert. Denies chest pain or shortness of breath. Oral intake is good. Patient remains oliguric. Femoral catheter was not working well yesterday and this morning it was removed and he had a permacath placed. Vital signs are stable. General: The patient appeared well nourished and normally developed. HEENT: Head exam is unremarkable. Neck is without jugular venous distension. LUNGS: Breath sounds decreased. HEART: Rate and Rhythm are regular. First and second heart sounds normal. No murmurs, rubs or gallops. ABDOMEN: Abdominal exam reveals normal bowel sounds. Non-tender and non- distended. No evidence of peritonitis. EXTREMITITES: No clubbing, cyanosis, or edema. Objective - Vital Signs Vital signs: Vital Signs Temp 98.9 F 11/28/17 08:01 Pulse 67 11/28/17 08:01 Resp 16 11/28/17 08:01 BP 147/64 11/28/17 08:01 Pulse Ox 95 11/28/17 08:01 Intake & Output 11/27/17 11/28/17 11/28/17 18:59 06:59 18:59 Intake Total 576 350 25 Output Total 45 20 Balance 531 330 25 Weight 124 kg Intake: IV 100 25 Sodium Ferric Gluconat- 100 Sucrose 125 mg In Sodium Chloride 0.9% 100 ml @ 100 mls/hr IVPB DAILY [facility] Rx#:[id number] Oral 476 350 Output: Urine 45 20 Other: Voiding Method Indwelling Catheter Indwelling Catheter - Labs CBC & Chem 7: 11/28/17 06:38 11/28/17 06:38 Labs: Abnormal Lab Results - Last 24 Hours (Table) 11/26/17 11/27/17 11/27/17 Range/Units 11:22 12:09 17:06 RBC (4.30-5.90) m/uL Hgb (13.0-17.5) gm/dL Hct (39.0-53.0) % Neutrophils # (1.3-7.7) k/uL Lymphocytes # (1.0-4.8) k/uL Sodium (137-145) mmol/L BUN (9-20) mg/dL Creatinine (0.66-1.25) mg/dL Glucose (74-99) mg/dL POC Glucose (mg/dL) 167 H 278 H (75-99) mg/dL Calcium (8.4-10.2) mg/dL Total Protein (6.3-8.2) g/dL Total Protein (PEP) 5.3 L (6.2-8.2) g/dL Albumin (3.5-5.0) g/dL 11/27/17 11/28/17 11/28/17 Range/Units 21:04 06:38 06:38 RBC 3.67 L (4.30-5.90) m/uL Hgb 9.9 L (13.0-17.5) gm/dL Hct 30.3 L (39.0-53.0) % Neutrophils # 8.1 H (1.3-7.7) k/uL Lymphocytes # 0.8 L (1.0-4.8) k/uL Sodium 135 L (137-145) mmol/L BUN 49 H (9-20) mg/dL Creatinine 9.67 H* (0.66-1.25) mg/dL Glucose 126 H (74-99) mg/dL POC Glucose (mg/dL) 137 H (75-99) mg/dL Calcium 7.4 L (8.4-10.2) mg/dL Total Protein 5.4 L (6.3-8.2) g/dL Total Protein (PEP) (6.2-8.2) g/dL Albumin 2.8 L (3.5-5.0) g/dL 11/28/17 Range/Units 07:03 RBC (4.30-5.90) m/uL Hgb (13.0-17.5) gm/dL Hct (39.0-53.0) % Neutrophils # (1.3-7.7) k/uL Lymphocytes # (1.0-4.8) k/uL Sodium (137-145) mmol/L BUN (9-20) mg/dL Creatinine (0.66-1.25) mg/dL Glucose (74-99) mg/dL POC Glucose (mg/dL) 137 H (75-99) mg/dL Calcium (8.4-10.2) mg/dL Total Protein (6.3-8.2) g/dL Total Protein (PEP) (6.2-8.2) g/dL Albumin (3.5-5.0) g/dL Microbiology - Last 24 Hours (Table) 11/22/17 15:23 Blood Culture - Preliminary Blood No Growth after 120 hours Assessment and Plan Plan: Assessment: 1. Acute kidney injury secondary to ATN secondary to intravascular volume depletion from diarrhea and use of JEANMARIE inhibitor and nonsteroidals. Creatinine 15.6 on admission. Baseline creatinine is near 1. No evidence of hydronephrosis noted on renal ultrasound. Currently hemodialysis dependent. He is noted to have nephrotic range proteinuria. Urine eosinophils negative. MANUELITO, double-stranded DNA antibody, Hepatitis panel negative. 2. Severe hyperkalemia secondary to ramipril, acute kidney injury and metabolic acidosis. Improved postdialysis. 3. Metabolic acidosis secondary to acute kidney injury. Patient was also on metformin. Improved. 4. Insulin-dependent diabetes mellitus. 5. Pyuria. 6. Benign hypertension. Controlled. 7. Hyperphosphatemia secondary to acute kidney injury. 8. Anemia. Iron deficiency noted. Status post 3 doses of IV iron. 9. Volume overload. Improved with ultrafiltration. Plan: Hemodialysis tomorrow. Follow-up pending serologies serologies. Scheduled for kidney biopsy - currently on hold as he was on aspirin. I will give him DDAVP one hour prior to kidney biopsy. Avoid nephrotoxins. Continue to hold JEANMARIE inhibitor and metformin for now. Maintain current antihypertensives. Continue to monitor renal function and urine output closely. Continue to assess on a day-to-day basis for need for renal replacement therapy. Maintain PhosLo with meals. Lasix 80 mg IV once today.
[2017-11-28] MEDS: hydrALAZINE HCL 25 MG TAB PO SCH ×3 (10:49→20:21)
[2017-11-28] MEDS: METOPROLOL TARTRATE 12.5 MG TAB PO SCH ×2 (10:49→20:21)
--- NOTE | 2017-11-28 11:16 | P.PN ---
Subjective Progress Note Date: 11/28/17 This is a 82-year-old male patient who presented to the emergency room with complaints of increased weakness that has been occurring for the past 3-4 days. She has a known past medical history of prostate cancer, diabetes mellitus, hyperlipidemia and essential hypertension. Patient states that over the past week he's notes he has not been able to walk as far as he used to be able to. Chest x-ray completed showing rotated expiratory exam. Correlate to exclude pulmonary venous hypertension and interstitial edema. Initial labs showing creatinine of 15.61, bun 109 and potassium 9.0. Nephrology consulted immediately. Hemodialysis access per vascular disease and patient received hemodialysis in the emergency room last night. Patient is currently in the intensive care unit. Potassium now 5.8. Bun 82 and creatinine 11.24. Per nursing staff patient to receive hemodialysis again today per nephrology services. Troponin also elevated at 0.059. CT completed showing wide QRS rhythm and occasional premature ventricular complexes Cardiology services following. Per cardiology patient will be started on aspirin and small dose of metoprolol 12.5. 2-D echo will be ordered. Ultrasound of bladder and kidneys completed showing high no hydronephrosis. 3.5 cm cyst on the right. Dr. Do consulted for critical care consult. Patient currently on bicarb drip along with Cleveprex for blood pressure control. At this time patient states he is feeling improved. Patient denies chest pain or shortness of breath. Patient denies nausea vomiting or diarrhea. Patient denies any urinary burning or frequency. On 11/24/2017 patient is currently resting in bed. Creatinine 10.28 and bun 63. Potassium improving to 5.4. Per nursing staff patient to receive dialysis again today. At this time patient states he's feeling much improved. Patient denies chest pain or shortness breath. Patient denies nausea vomiting or diarrhea. Patient denies any urinary symptoms On 11/26/2017 patient is currently resting in bed. Creatinine remains elevated at 8.54 and bun 45. Potassium 5.0. Patient states he feels improved. at this time patient denies chest pains. Denies nausea. Denies urinary burning or frequency On 11/27/2017 patient is currently resting in bed. Patient denies any complaints at this time. Creatinine increasing to 10.26 and bun 57. Patient did not receive dialysis yesterday. Awaiting nephrology input in regards to hemodialysis today. This time patient denies chest pain or shortness of breath. Patient denies nausea vomiting or diarrhea. Patient denies any urinary burning or frequency 11/28/2017 patient was transferred out of the ICU yesterday. He is currently hemodialysis dependent. He is scheduled for hemodialysis tomorrow. Femoral catheter was not working well yesterday and this morning he was removed and he had a permacath placed. Patient remains oliguric. Nephrology is ordered another dose of IV Lasix. Small amount of urine is bloody in Hoang bag. Patient denies any chest pain or shortness of breath. Denies any nausea or vomiting. Reports having a regular bowel movement. Objective - Vital Signs Vital signs: Vital Signs Temp 98.9 F 11/28/17 08:01 Pulse 67 11/28/17 08:01 Resp 16 11/28/17 08:01 BP 147/64 11/28/17 08:01 Pulse Ox 95 11/28/17 08:01 Intake & Output 11/27/17 11/28/17 11/28/17 18:59 06:59 18:59 Intake Total 576 350 25 Output Total 45 20 Balance 531 330 25 Weight 124 kg Intake: IV 100 25 Sodium Ferric Gluconat- 100 Sucrose 125 mg In Sodium Chloride 0.9% 100 ml @ 100 mls/hr IVPB DAILY [facility] Rx#:[id number] Oral 476 350 Output: Urine 45 20 Other: Voiding Method Indwelling Catheter Indwelling Catheter - Exam Head normocephalic Neck supple Lungs clear to auscultation bilaterally no wheezing or crackles Heart regular rate and rhythm S1-S2, no rub or gallop Abdomen is soft nontender nondistended positive bowel sounds no hepatosplenomegaly Extremities no edema Neuro alert and orientated to 3 - Labs CBC & Chem 7: 11/28/17 06:38 11/28/17 06:38 Labs: Abnormal Lab Results - Last 24 Hours (Table) 11/27/17 11/27/17 11/27/17 Range/Units 12:09 17:06 21:04 RBC (4.30-5.90) m/uL Hgb (13.0-17.5) gm/dL Hct (39.0-53.0) % Neutrophils # (1.3-7.7) k/uL Lymphocytes # (1.0-4.8) k/uL Sodium (137-145) mmol/L BUN (9-20) mg/dL Creatinine (0.66-1.25) mg/dL Glucose (74-99) mg/dL POC Glucose (mg/dL) 167 H 278 H 137 H (75-99) mg/dL Calcium (8.4-10.2) mg/dL Total Protein (6.3-8.2) g/dL Albumin (3.5-5.0) g/dL 11/28/17 11/28/17 11/28/17 Range/Units 06:38 06:38 07:03 RBC 3.67 L (4.30-5.90) m/uL Hgb 9.9 L (13.0-17.5) gm/dL Hct 30.3 L (39.0-53.0) % Neutrophils # 8.1 H (1.3-7.7) k/uL Lymphocytes # 0.8 L (1.0-4.8) k/uL Sodium 135 L (137-145) mmol/L BUN 49 H (9-20) mg/dL Creatinine 9.67 H* (0.66-1.25) mg/dL Glucose 126 H (74-99) mg/dL POC Glucose (mg/dL) 137 H (75-99) mg/dL Calcium 7.4 L (8.4-10.2) mg/dL Total Protein 5.4 L (6.3-8.2) g/dL Albumin 2.8 L (3.5-5.0) g/dL Microbiology - Last 24 Hours (Table) 11/22/17 15:23 Blood Culture - Preliminary Blood No Growth after 120 hours Assessment and Plan Assessment: 1. Acute kidney injury with profound hyperkalemia causing profound weakness and EKG changes. Initial potassium 9.0, creatinine 15.61 and bun 109. Acute kidney injury secondary to ATN secondary to intravascular volume depletion from diarrhea, JEANMARIE inhibitor and NSAIDs. No evidence of hydronephrosis on ultrasound. Patient had emergent hemodialysis on admission. And is currently hemodialysis dependent. Nephrology workup in progress. Patient initially scheduled for a kidney biopsy which is currently on hold due to patient being on aspirin. Aspirin has been discontinued per nephrology. Continue to hold JEANMARIE inhibitor, metformin and nephrotoxic medications. Nephrology has ordered Lasix 80 mg IV 1 today. Follow-up on blood work ordered by nephrology 2. Severe Hyperkalemia. Secondary to JEANMARIE inhibitor, acute kidney injury and metabolic acidosis. Improved post dialysis. Initial potassium 9.0. 3. Elevated troponin. Troponin 0.059. EKG completed in emergency room showing wide QRS rhythm with occasional premature ventricular complexes. Cardiology service consulted. 2-D echo completed showing an EF of 55-60%. Per cardiology services continue with conservative medical approach with mild abnormal cardiac enzymes. Continue Lopressor 4. History of coronary artery disease 5. History of diabetes mellitus type 2. Metformin DC'd. Sliding scale insulin coverage has been added 6. History of essential hypertension. Patient currently on cleveprex drip for Blood pressure control. Cleveprex Has been discontinued 7. History of hyperlipidemia 8. History of prostate cancer. Status post prostatectomy 9. Status post aortic valve replacement for aortic stenosis 10. History of hypothyroidism. Synthroid resumed 11. Iron deficiency anemia. Patient has received IV iron per nephrology. 12. Metabolic acidosis secondary to acute kidney injury as well as metformin. Now improved 13. Hyperphosphatemia secondary to acute kidney injury. Continue PhosLo DVT prophylaxis heparin GI prophylaxis Protonix I performed an examination of the patient and discussed their management with the physician Director Experimental Medicine. I have reviewed the Physician Director Experimental Medicine's notes and agree with the documented findings and plan of care
--- NOTE | 2017-11-28 11:31 | XR ---
EXAMINATION TYPE: XR chest 1V portable DATE OF EXAM: 11/28/2017 COMPARISON: 11/25/2017 HISTORY: Catheter placement. TECHNIQUE: Single frontal view of the chest is obtained. FINDINGS: There is improved degree of pulmonary vascular congestion and interstitial pulmonary edema . Cardiac silhouette is enlarged with post CABG changes the chest. There is a new right-sided dual-miles men hemodialysis catheter terminating in the high right atrium. Osseous structures are grossly intact with chronic fracture deformity of the left clavicle. No pneumothorax. IMPRESSION: New right dual-lumen hemodialysis catheter terminating in the high right atrium, appropr iately placed. No postprocedural pneumothorax.
[2017-11-28 11:51] LABS: Glucose,Whole Blood 162 mg/dL (75-99)
--- NOTE | 2017-11-28 13:03 | IR ---
Fluoroscopy HISTORY: Dialysis catheter placement 0.4 minutes fluoroscopy time supplied to the referring clinician. 64 intraoperative C-arm images doc ument the procedure. See dictated report from vascular surgery.
--- NOTE | 2017-11-28 13:13 | PCN ---
PROCEDURE NOTE PREOPERATIVE DIAGNOSIS: Acute chronic renal failure. PROCEDURE: 1. Removal of the right femoral catheter. 2. Ultrasound-guided 23 cm dialysis catheter in right internal jugular vein. 3. Sedation time 32 minutes. PROCEDURE: This patient was brought to the photonic laboratory technician. Right side of the chest and neck was prepped and draped in a sterile manner and 1% lidocaine was infiltrated. Ultrasound-guided micropuncture introduced right internal jugular vein. Micropuncture guidewire was passed and 4-Armenian dilator advanced on top of the guidewire then we passed a regular guidewire, which was parked in the inferior vena cava under fluoroscopy control. Then we created a tunnel. Through the tunnel, we brought 23 cm precurved dialysis catheter. After that, we passed a dilator and then the sheath on top of the guidewire. Through the sheath we introduced the dialysis catheter. Tip of the catheter in superior vena cava and atrium. The sheath was removed. The catheter was flushed with heparin saline and hep-locked. Then the right groin was prepped and stitches removed. The right femoral catheter was removed. Pressure held. Patient tolerated the procedure well. MMODL / IJN: [id number] /
--- NOTE | 2017-11-28 13:24 | P.PN ---
Subjective Progress Note Date: 11/28/17 Principal diagnosis: On 11/27/2017, the patient is awake and alert. No signs of any significant fluid overload. The patient remains in acute kidney injury. The exact cause is not clear although nephrology think this is an acute kidney injury from ATN due to factors including nonsteroidal anti-inflammatory medication and JEANMARIE inhibitor's. The patient has received 4 sessions of hemodialysis. Another session will be done today. His initial presentation was with a creatinine of 15 and it potassium level of 9 both are improved and her potassium level is normalized. The patient remains oliguric. He received 80 mg of IV Lasix yesterday with limited improvement in urine output. No encephalopathy. No headaches. No altered mentation. He is slow in answering questions however he seems to be appropriate. No chest pain. No nausea or vomiting. No diarrhea or abdominal pain. His hemoglobin is at 10.1. Creatinine is at 10.2. Potassium level from today is 4.9. He is being considered for a kidney biopsy. Nephrology is on the case. On 11/27/2017 patient seen in follow-up on medical surgical floor. He is resting comfortably in bed, denies any shortness of breath or chest pain. Room air pulse ox is 95%, patient is afebrile, hemodynamically stable, patient had a new right dual-lumen hemodialysis catheter placed in the right chest. Postprocedure chest x-ray was reviewed, and showed no postprocedural complications, no pneumothorax, improving degree of pulmonary vascular congestion and interstitial pulmonary edema. Patient is tolerating oral diet, he does remain oliguric, full catheter is in place, which is draining scant amount of brownish urine. Patient had hemodialysis yesterday, he will have another treatment tomorrow. Blood and urine cultures are pending. No fever no chills. Kidney biopsy is pending, aspirin is on hold for the procedure. Objective - Vital Signs Vital signs: Vital Signs Temp 98.9 F 11/28/17 08:01 Pulse 67 11/28/17 08:01 Resp 16 11/28/17 08:01 BP 147/64 11/28/17 08:01 Pulse Ox 95 11/28/17 08:01 Intake & Output 11/27/17 11/28/17 11/28/17 18:59 06:59 18:59 Intake Total 576 350 25 Output Total 45 20 Balance 531 330 25 Weight 124 kg Intake: IV 100 25 Sodium Ferric Gluconat- 100 Sucrose 125 mg In Sodium Chloride 0.9% 100 ml @ 100 mls/hr IVPB DAILY [facility] Rx#:[id number] Oral 476 350 Output: Urine 45 20 Other: Voiding Method Indwelling Catheter Indwelling Catheter - Exam No acute distress, oriented 3. Currently, the patient is not requiring any supplemental oxygen. HEENT examination is grossly unremarkable. Mucous membranes are moist. No oral lesions. Neck supple. Full range of motion. No adenopathy thyromegaly or neck vein distention. Cardiovascular examination reveals regular rhythm rate. S1-S2 normal. No S3 or S4. No discernible murmur noted. Heart sounds are distant. There is a scar of previous thoracotomy over the anterior chest area. Lungs reveal few scattered rhonchi. Crackles are minimal at best. Breath sounds are equal bilaterally. No wheezes. Breath sounds are improved today compared to yesterday's exam.. Abdomen soft bowel sounds are heard. No masses or tenderness. Extremities are intact. No cyanosis clubbing or edema. Skin is without rash or lesion. Neurologic examination is brief but nonfocal. - Labs CBC & Chem 7: 11/28/17 06:38 11/28/17 06:38 Labs: Abnormal Lab Results - Last 24 Hours (Table) 11/27/17 11/27/17 11/28/17 Range/Units 17:06 21:04 06:38 RBC 3.67 L (4.30-5.90) m/uL Hgb 9.9 L (13.0-17.5) gm/dL Hct 30.3 L (39.0-53.0) % Neutrophils # 8.1 H (1.3-7.7) k/uL Lymphocytes # 0.8 L (1.0-4.8) k/uL Sodium (137-145) mmol/L BUN (9-20) mg/dL Creatinine (0.66-1.25) mg/dL Glucose (74-99) mg/dL POC Glucose (mg/dL) 278 H 137 H (75-99) mg/dL Calcium (8.4-10.2) mg/dL Total Protein (6.3-8.2) g/dL Albumin (3.5-5.0) g/dL 11/28/17 11/28/1711/28/18 Range/Units 06:38 07:03 11:33 RBC (4.30-5.90) m/uL Hgb (13.0-17.5) gm/dL Hct (39.0-53.0) % Neutrophils # (1.3-7.7) k/uL Lymphocytes # (1.0-4.8) k/uL Sodium 135 L (137-145) mmol/L BUN 49 H (9-20) mg/dL Creatinine 9.67 H* (0.66-1.25) mg/dL Glucose 126 H (74-99) mg/dL POC Glucose (mg/dL) 137 H 162 H (75-99) mg/dL Calcium 7.4 L (8.4-10.2) mg/dL Total Protein 5.4 L (6.3-8.2) g/dL Albumin 2.8 L (3.5-5.0) g/dL Microbiology - Last 24 Hours (Table) 11/22/17 15:23 Blood Culture - Preliminary Blood No Growth after 120 hours Assessment and Plan Plan: Assessment: 1 Acute kidney injury with profound hyperkalemia, causing profound weakness and EKG changes. The patient presented with a creatinine above 15. The patient's potassium level was also at 9.0. He has audible received 4 sessions of hemodialysis. No improvement. He remains oliguric. He is being considered for kidney biopsy. The patient is going to undergo another session of dialysis today. 2 symptomatic hyperkalemia, recovered 3 History of CAD 4 History of diabetes 5 History of hypertension, currently under better control and the patient is currently off the clavipectoral drip 6 History of hyperlipidemia 7 History of prostate cancer, status post prostatectomy 8 Status post aortic valve replacement for aortic stenosis 9 History of hypothyroidism Plan: Continue with current plan of treatment, today's chest x-ray has been reviewed by Dr. Key, showed improvement in the degree of pulmonary vascular congestion, and interstitial pulmonary edema. No shortness of breath or chest pain, she is not requiring any supplemental oxygen, afebrile, hemodynamically stable. Nephrology is following, and patient will have a hemodialysis treatment tomorrow. Renal profile is improving. No acute issues overnight. He on as-needed basis. I performed a history & physical examination of the patient and discussed their management with my nurse practitioner, Lashell Milligan. I reviewed the nurse practitioner's note and agree with the documented findings and plan of care. Lung sounds are positive a few bibasilar crackles. The findings and the impression was discussed with the patient. I attest to the documentation by the nurse practitioner. Time with Patient: Less than 30
[2017-11-28 13:57] LABS: Albumin 2.64 g/dL (3.80-4.90)
[2017-11-28 17:06] LABS: Glucose,Whole Blood 209 mg/dL (75-99)
[2017-11-28 20:06] LABS: Glucose,Whole Blood 238 mg/dL (75-99)
[2017-11-28] MEDS: CLEVIDIPINE BUTYRATE 25 MG in EMPTY BAG 1 BAG IV SCH (20:16)
[2017-11-28] MEDS: LEVOTHYROXINE 25 MCG TAB PO SCH (20:21)
[2017-11-29 07:10] LABS: Glucose,Whole Blood 162 mg/dL (75-99)
[2017-11-29] MEDS: CALCIUM ACETATE 667 MG CAP PO SCH ×3 (07:14→17:21)
[2017-11-29] MEDS: PANTOPRAZOLE 40 MG TABLET PO SCH (07:14)
[2017-11-29] MEDS: INSULIN ASPART 100 UNIT/ML 1 ML 10 ML VIAL SQ SCH ×4 (07:42→21:06)
[2017-11-29] MEDS: hydrALAZINE HCL 25 MG TAB PO SCH ×3 (07:44→21:05)
[2017-11-29] MEDS: METOPROLOL TARTRATE 12.5 MG TAB PO SCH ×2 (07:44→21:05)
[2017-11-29] MEDS: HEPARIN SODIUM,PORCINE 5,000 UNIT/ML 1 ML VIAL SQ SCH ×2 (10:03→21:06)
--- NOTE | 2017-11-29 10:21 | P.PN ---
Subjective Patient is seen in follow-up for acute kidney injury. Creatinine was over 15 on admission and potassium level was 9. He is currently hemodialysis dependent. Patient is awake and alert. Denies chest pain or shortness of breath. Oral intake is good. Patient remains oliguric. Patient has a permacath in place. Creatinine June 2014 and July 2016 was 1.1. Vital signs are stable. General: The patient appeared well nourished and normally developed. HEENT: Head exam is unremarkable. Neck is without jugular venous distension. LUNGS: Breath sounds decreased. HEART: Rate and Rhythm are regular. First and second heart sounds normal. No murmurs, rubs or gallops. ABDOMEN: Abdominal exam reveals normal bowel sounds. Non-tender and non- distended. No evidence of peritonitis. EXTREMITITES: No clubbing, cyanosis, or edema. Objective - Vital Signs Vital signs: Vital Signs Temp 98.2 F 11/29/17 08:27 Pulse 73 11/29/17 08:27 Resp 16 11/29/17 10:05 BP 165/70 11/29/17 08:27 Pulse Ox 95 11/29/17 08:27 Intake & Output 11/28/17 11/29/17 11/29/17 18:59 06:59 18:59 Intake Total 505 240 240 Output Total 365 Balance 505 -125 240 Weight 124 kg 124 kg Intake: IV 25 Oral 480 240 240 Output: Urine 365 Uretheral (Hoang) 125 Other: Voiding Method Indwelling Catheter Indwelling Catheter Indwelling Catheter - Labs CBC & Chem 7: 11/28/17 06:38 11/28/17 06:38 Labs: Abnormal Lab Results - Last 24 Hours (Table) 11/26/17 11/28/17 11/28/17 Range/Units 11:22 11:33 16:53 POC Glucose (mg/dL) 162 H 209 H (75-99) mg/dL Albumin (PEP) 2.64 L (3.80-4.90) g/dL [id number] 0.45 H (0.10-0.40) g/dL Beta Globulins 0.55 L (0.60-1.30) g/dL 11/28/17 11/29/17 Range/Units 19:54 07:09 POC Glucose (mg/dL) 238 H 162 H (75-99) mg/dL Albumin (PEP) (3.80-4.90) g/dL Thnpb-2-Jgvgqoium (0.10-0.40) g/dL Beta Globulins (0.60-1.30) g/dL Microbiology - Last 24 Hours (Table) 11/22/17 15:23 Blood Culture - Final Blood No Growth after 144 hours Assessment and Plan Plan: Assessment: 1. Acute kidney injury secondary to ATN secondary to intravascular volume depletion from diarrhea and use of JEANMARIE inhibitor and nonsteroidals. Creatinine 15.6 on admission. Baseline creatinine is near 1. No evidence of hydronephrosis noted on renal ultrasound. Currently hemodialysis dependent. He is noted to have nephrotic range proteinuria. Urine eosinophils negative. MANUELITO, double-stranded DNA antibody, Hepatitis panel negative. SPEP negative. 2. Severe hyperkalemia secondary to ramipril, acute kidney injury and metabolic acidosis. Improved postdialysis. 3. Metabolic acidosis secondary to acute kidney injury. Patient was also on metformin. Improved. 4. Insulin-dependent diabetes mellitus. 5. Pyuria. 6. Benign hypertension. Controlled. 7. Hyperphosphatemia secondary to acute kidney injury. 8. Anemia. Iron deficiency noted. Status post 3 doses of IV iron. 9. Volume overload. Improved with ultrafiltration. Plan: Hemodialysis today. Follow-up pending serologies. Scheduled for kidney biopsy - currently on hold as he was on aspirin. I will give him DDAVP one hour prior to kidney biopsy. Avoid nephrotoxins. Continue to hold JEANMARIE inhibitor and metformin for now. Maintain current antihypertensives. Continue to monitor renal function and urine output closely. Continue to assess on a day-to-day basis for need for renal replacement therapy. Maintain PhosLo with meals. manager lighting on board to help facilitate outpatient hemodialysis set up.
[2017-11-29 10:51] LABS: Albumin 2.8 g/dL (3.5-5.0); Calcium 7.2 mg/dL (8.4-10.2); Potassium 4.8 mmol/L (3.5-5.1); Total Bilirubin 0.5 mg/dL (0.2-1.3); Total Protein 5.3 g/dL (6.3-8.2)
[2017-11-29 11:07] LABS: Basophils % (A) 0 %; Eosinophils # (A) 0.1 k/uL (0-0.7); Eosinophils % (A) 1 %; HCT 29.3 % (39.0-53.0); HGB 9.4 gm/dL (13.0-17.5); Lymphocytes # (A) 0.6 k/uL (1.0-4.8); Lymphocytes % (A) 5 %; MCH 26.8 pg (25.0-35.0); MCHC 32.2 g/dL (31.0-37.0); MCV 83.1 fL (80.0-100.0); Mean Platelet Volume 7.7; Monocytes % (A) 8 %; Neutrophils # (A) 10.1 k/uL (1.3-7.7); Neutrophils % (A) 84 %; Platelet Count 376 k/uL (150-450); RBC 3.52 m/uL (4.30-5.90); RDW 14.9 % (11.5-15.5); WBC 12.1 k/uL (3.8-10.6)
[2017-11-29 11:38] LABS: Glucose,Whole Blood 237 mg/dL (75-99)
--- NOTE | 2017-11-29 12:49 | P.PN ---
Subjective Progress Note Date: 11/29/17 This is a 82-year-old male patient who presented to the emergency room with complaints of increased weakness that has been occurring for the past 3-4 days. She has a known past medical history of prostate cancer, diabetes mellitus, hyperlipidemia and essential hypertension. Patient states that over the past week he's notes he has not been able to walk as far as he used to be able to. Chest x-ray completed showing rotated expiratory exam. Correlate to exclude pulmonary venous hypertension and interstitial edema. Initial labs showing creatinine of 15.61, bun 109 and potassium 9.0. Nephrology consulted immediately. Hemodialysis access per vascular disease and patient received hemodialysis in the emergency room last night. Patient is currently in the intensive care unit. Potassium now 5.8. Bun 82 and creatinine 11.24. Per nursing staff patient to receive hemodialysis again today per nephrology services. Troponin also elevated at 0.059. CT completed showing wide QRS rhythm and occasional premature ventricular complexes Cardiology services following. Per cardiology patient will be started on aspirin and small dose of metoprolol 12.5. 2-D echo will be ordered. Ultrasound of bladder and kidneys completed showing high no hydronephrosis. 3.5 cm cyst on the right. Dr. Do consulted for critical care consult. Patient currently on bicarb drip along with Cleveprex for blood pressure control. At this time patient states he is feeling improved. Patient denies chest pain or shortness of breath. Patient denies nausea vomiting or diarrhea. Patient denies any urinary burning or frequency. On 11/24/2017 patient is currently resting in bed. Creatinine 10.28 and bun 63. Potassium improving to 5.4. Per nursing staff patient to receive dialysis again today. At this time patient states he's feeling much improved. Patient denies chest pain or shortness breath. Patient denies nausea vomiting or diarrhea. Patient denies any urinary symptoms On 11/26/2017 patient is currently resting in bed. Creatinine remains elevated at 8.54 and bun 45. Potassium 5.0. Patient states he feels improved. at this time patient denies chest pains. Denies nausea. Denies urinary burning or frequency On 11/27/2017 patient is currently resting in bed. Patient denies any complaints at this time. Creatinine increasing to 10.26 and bun 57. Patient did not receive dialysis yesterday. Awaiting nephrology input in regards to hemodialysis today. This time patient denies chest pain or shortness of breath. Patient denies nausea vomiting or diarrhea. Patient denies any urinary burning or frequency 11/28/2017 patient was transferred out of the ICU yesterday. He is currently hemodialysis dependent. He is scheduled for hemodialysis tomorrow. Femoral catheter was not working well yesterday and this morning he was removed and he had a permacath placed. Patient remains oliguric. Nephrology is ordered another dose of IV Lasix. Small amount of urine is bloody in Hoang bag. Patient denies any chest pain or shortness of breath. Denies any nausea or vomiting. Reports having a regular bowel movement. On 11/29/2017 patient is currently resting comfortably in chair. Creatinine 11.06 and bun 68. Patient planning to get hemodialysis today per nephrology. This time patient denies chest pain or shortness breath. Patient denies nausea vomiting or diarrhea. Hoang catheter remains in place with minimum bloody urine output Objective - Vital Signs Vital signs: Vital Signs Temp 98.2 F 11/29/17 08:27 Pulse 73 11/29/17 08:27 Resp 16 11/29/17 10:05 BP 165/70 11/29/17 08:27 Pulse Ox 95 11/29/17 08:27 Intake & Output 11/28/17 11/29/17 11/29/17 18:59 06:59 18:59 Intake Total 505 240 240 Output Total 365 Balance 505 -125 240 Weight 124 kg 124 kg Intake: IV 25 Oral 480 240 240 Output: Urine 365 Uretheral (Hoang) 125 Other: Voiding Method Indwelling Catheter Indwelling Catheter Indwelling Catheter - Exam Head normocephalic Neck supple Lungs clear to auscultation bilaterally no wheezing or crackles Heart regular rate and rhythm S1-S2, no rub or gallop Abdomen is soft nontender nondistended positive bowel sounds no hepatosplenomegaly Extremities no edema Neuro alert and orientated to 3 - Labs CBC & Chem 7: 11/29/17 08:56 11/29/17 08:56 Labs: Abnormal Lab Results - Last 24 Hours (Table) 11/26/17 11/28/17 11/28/17 Range/Units 11:22 16:53 19:54 WBC (3.8-10.6) k/uL RBC (4.30-5.90) m/uL Hgb (13.0-17.5) gm/dL Hct (39.0-53.0) % Neutrophils # (1.3-7.7) k/uL Lymphocytes # (1.0-4.8) k/uL Sodium (137-145) mmol/L Chloride (98-107) mmol/L Carbon Dioxide (22-30) mmol/L BUN (9-20) mg/dL Creatinine (0.66-1.25) mg/dL Glucose (74-99) mg/dL POC Glucose (mg/dL) 209 H 238 H (75-99) mg/dL Calcium (8.4-10.2) mg/dL Total Protein (6.3-8.2) g/dL Albumin (3.5-5.0) g/dL Albumin (PEP) 2.64 L (3.80-4.90) g/dL Csdwe-1-Wsmubshox 0.45 H (0.10-0.40) g/dL Beta Globulins 0.55 L (0.60-1.30) g/dL 11/29/17 11/29/17 11/29/17 Range/Units 07:09 08:56 08:56 WBC 12.1 H (3.8-10.6) k/uL RBC 3.52 L (4.30-5.90) m/uL Hgb 9.4 L (13.0-17.5) gm/dL Hct 29.3 L (39.0-53.0) % Neutrophils # 10.1 H (1.3-7.7) k/uL Lymphocytes # 0.6 L (1.0-4.8) k/uL Sodium 134 L (137-145) mmol/L Chloride 97 L (98-107) mmol/L Carbon Dioxide 21 L (22-30) mmol/L BUN 68 H (9-20) mg/dL Creatinine 11.06 H* (0.66-1.25) mg/dL Glucose 225 H (74-99) mg/dL POC Glucose (mg/dL) 162 H (75-99) mg/dL Calcium 7.2 L (8.4-10.2) mg/dL Total Protein 5.3 L (6.3-8.2) g/dL Albumin 2.8 L (3.5-5.0) g/dL Albumin (PEP) (3.80-4.90) g/dL Ebdyo-3-Eziexqvzl (0.10-0.40) g/dL Beta Globulins (0.60-1.30) g/dL 11/29/17 Range/Units 11:35 WBC (3.8-10.6) k/uL RBC (4.30-5.90) m/uL Hgb (13.0-17.5) gm/dL Hct (39.0-53.0) % Neutrophils # (1.3-7.7) k/uL Lymphocytes # (1.0-4.8) k/uL Sodium (137-145) mmol/L Chloride (98-107) mmol/L Carbon Dioxide (22-30) mmol/L BUN (9-20) mg/dL Creatinine (0.66-1.25) mg/dL Glucose (74-99) mg/dL POC Glucose (mg/dL) 237 H (75-99) mg/dL Calcium (8.4-10.2) mg/dL Total Protein (6.3-8.2) g/dL Albumin (3.5-5.0) g/dL Albumin (PEP) (3.80-4.90) g/dL Qtvfl-9-Hmptgbbix (0.10-0.40) g/dL Beta Globulins (0.60-1.30) g/dL Microbiology - Last 24 Hours (Table) 11/22/17 15:23 Blood Culture - Final Blood No Growth after 144 hours Assessment and Plan Assessment: 1. Acute kidney injury with profound hyperkalemia causing profound weakness and EKG changes. Initial potassium 9.0, creatinine 15.61 and bun 109. Acute kidney injury secondary to ATN secondary to intravascular volume depletion from diarrhea, JEANMARIE inhibitor and NSAIDs. No evidence of hydronephrosis on ultrasound. Patient had emergent hemodialysis on admission. And is currently hemodialysis dependent. Nephrology workup in progress. Patient initially scheduled for a kidney biopsy which is currently on hold due to patient being on aspirin. Aspirin has been discontinued per nephrology. Continue to hold JEANMARIE inhibitor, metformin and nephrotoxic medications. Nephrology has ordered Lasix 80 mg IV 1 today. Follow-up on blood work ordered by nephrology. Patient to get hemodialysis today per nephrology services 2. Severe Hyperkalemia. Secondary to JEANMARIE inhibitor, acute kidney injury and metabolic acidosis. Improved post dialysis. Initial potassium 9.0. 3. Elevated troponin. Troponin 0.059. EKG completed in emergency room showing wide QRS rhythm with occasional premature ventricular complexes. Cardiology service consulted. 2-D echo completed showing an EF of 55-60%. Per cardiology services continue with conservative medical approach with mild abnormal cardiac enzymes. Continue Lopressor 4. History of coronary artery disease 5. History of diabetes mellitus type 2. Metformin DC'd. Sliding scale insulin coverage has been added 6. History of essential hypertension. Patient currently on cleveprex drip for Blood pressure control. Cleveprex Has been discontinued 7. History of hyperlipidemia 8. History of prostate cancer. Status post prostatectomy 9. Status post aortic valve replacement for aortic stenosis 10. History of hypothyroidism. Synthroid resumed 11. Iron deficiency anemia. Patient has received IV iron per nephrology. 12. Metabolic acidosis secondary to acute kidney injury as well as metformin. Now improved 13. Hyperphosphatemia secondary to acute kidney injury. Continue PhosLo DVT prophylaxis heparin GI prophylaxis Protonix Social work consult for discharge planning. Patient initially placed at [facility] on to [facility] with Luisa for dialysis. Family requesting placement closer to [place]. Awaiting placement I performed an examination of the patient and discussed their management with the Nurse Practitioner. I have reviewed the Nurse Practitioner's notes and agree with the documented findings and plan of care
[2017-11-29 13:50] LABS: P-ANCA <1:20 Titer (<1:20)
[2017-11-29 16:57] LABS: Glucose,Whole Blood 128 mg/dL (75-99)
[2017-11-29 20:50] LABS: Glucose,Whole Blood 261 mg/dL (75-99)
[2017-11-29] MEDS: CLEVIDIPINE BUTYRATE 25 MG in EMPTY BAG 1 BAG IV SCH (21:02)
[2017-11-29] MEDS: LEVOTHYROXINE 25 MCG TAB PO SCH (21:05)
[2017-11-30 06:55] LABS: Glucose,Whole Blood 167 mg/dL (75-99)
[2017-11-30 07:19] LABS: Basophils % (A) 0 %; Eosinophils # (A) 0.1 k/uL (0-0.7); Eosinophils % (A) 1 %; HCT 28.5 % (39.0-53.0); HGB 9.1 gm/dL (13.0-17.5); Lymphocytes # (A) 0.7 k/uL (1.0-4.8); Lymphocytes % (A) 7 %; MCH 26.3 pg (25.0-35.0); MCHC 31.9 g/dL (31.0-37.0); MCV 82.5 fL (80.0-100.0); Monocytes % (A) 10 %; Neutrophils # (A) 8.8 k/uL (1.3-7.7); Neutrophils % (A) 81 %; Platelet Count 338 k/uL (150-450); RBC 3.46 m/uL (4.30-5.90); WBC 10.9 k/uL (3.8-10.6)
[2017-11-30 07:36] LABS: Albumin 2.8 g/dL (3.5-5.0); Calcium 7.5 mg/dL (8.4-10.2); Potassium 4.7 mmol/L (3.5-5.1); Total Bilirubin 0.5 mg/dL (0.2-1.3); Total Protein 5.4 g/dL (6.3-8.2)
[2017-11-30] MEDS: INSULIN ASPART 100 UNIT/ML 1 ML 10 ML VIAL SQ SCH ×4 (08:33→20:38)
[2017-11-30] MEDS: PANTOPRAZOLE 40 MG TABLET PO SCH (08:34)
[2017-11-30] MEDS: HEPARIN SODIUM,PORCINE 5,000 UNIT/ML 1 ML VIAL SQ SCH ×2 (08:34→20:38)
[2017-11-30] MEDS: CALCIUM ACETATE 667 MG CAP PO SCH ×3 (08:34→18:23)
[2017-11-30] MEDS: METOPROLOL TARTRATE 12.5 MG TAB PO SCH ×2 (08:34→20:38)
[2017-11-30] MEDS: hydrALAZINE HCL 25 MG TAB PO SCH ×3 (08:34→20:38)
[2017-11-30 11:38] LABS: Glucose,Whole Blood 290 mg/dL (75-99)
[2017-11-30] MEDS ORDERED: DESMOPRESSIN ACETATE 4 MCG/ML VIAL (MDV) IVPB ONE (12:02)
--- NOTE | 2017-11-30 12:09 | P.PN ---
Subjective Patient is seen in follow-up for acute kidney injury. Creatinine was over 15 on admission and potassium level was 9. He is currently hemodialysis dependent. Patient is awake and alert. Denies chest pain or shortness of breath. Oral intake is good. Patient remains oliguric. Patient has a permacath in place. Creatinine June 2014 and July 2016 was 1.1. Tolerated hemodialysis well yesterday. No active complaints at this time. Vital signs are stable. General: The patient appeared well nourished and normally developed. HEENT: Head exam is unremarkable. Neck is without jugular venous distension. LUNGS: Breath sounds decreased. HEART: Rate and Rhythm are regular. First and second heart sounds normal. No murmurs, rubs or gallops. ABDOMEN: Abdominal exam reveals normal bowel sounds. Non-tender and non- distended. No evidence of peritonitis. EXTREMITITES: No clubbing, cyanosis, or edema. Objective - Vital Signs Vital signs: Vital Signs Temp 97.5 F L 11/30/17 07:43 Pulse 74 11/30/17 09:46 Resp 16 11/30/17 07:43 BP 118/60 11/30/17 09:42 Pulse Ox 96 11/30/17 07:43 Intake & Output 11/29/17 11/30/17 11/30/17 18:59 06:59 18:59 Intake Total 640 440 Output Total 40 Balance 640 400 Weight 124 kg 124 kg Intake: Oral 640 440 Output: Urine 40 Other: Voiding Method Indwelling Catheter Indwelling Catheter Indwelling Catheter - Labs CBC & Chem 7: 11/30/17 06:55 11/30/17 06:55 Labs: Abnormal Lab Results - Last 24 Hours (Table) 11/26/17 11/29/17 11/29/17 Range/Units 11:22 16:55 20:38 WBC (3.8-10.6) k/uL RBC (4.30-5.90) m/uL Hgb (13.0-17.5) gm/dL Hct (39.0-53.0) % Neutrophils # (1.3-7.7) k/uL Lymphocytes # (1.0-4.8) k/uL Sodium (137-145) mmol/L BUN (9-20) mg/dL Creatinine (0.66-1.25) mg/dL Glucose (74-99) mg/dL POC Glucose (mg/dL) 128 H 261 H (75-99) mg/dL Calcium (8.4-10.2) mg/dL Total Protein (6.3-8.2) g/dL Albumin (3.5-5.0) g/dL c-ANCA 1:320 H (<1:20) Titer 11/30/17 11/30/17 11/30/17 Range/Units 06:44 06:55 06:55 WBC 10.9 H (3.8-10.6) k/uL RBC 3.46 L (4.30-5.90) m/uL Hgb 9.1 L (13.0-17.5) gm/dL Hct 28.5 L (39.0-53.0) % Neutrophils # 8.8 H (1.3-7.7) k/uL Lymphocytes # 0.7 L (1.0-4.8) k/uL Sodium 135 L (137-145) mmol/L BUN 47 H (9-20) mg/dL Creatinine 8.33 H* (0.66-1.25) mg/dL Glucose 155 H (74-99) mg/dL POC Glucose (mg/dL) 167 H (75-99) mg/dL Calcium 7.5 L (8.4-10.2) mg/dL Total Protein 5.4 L (6.3-8.2) g/dL Albumin 2.8 L (3.5-5.0) g/dL c-ANCA (<1:20) Titer 11/30/17 Range/Units 11:37 WBC (3.8-10.6) k/uL RBC (4.30-5.90) m/uL Hgb (13.0-17.5) gm/dL Hct (39.0-53.0) % Neutrophils # (1.3-7.7) k/uL Lymphocytes # (1.0-4.8) k/uL Sodium (137-145) mmol/L BUN (9-20) mg/dL Creatinine (0.66-1.25) mg/dL Glucose (74-99) mg/dL POC Glucose (mg/dL) 290 H (75-99) mg/dL Calcium (8.4-10.2) mg/dL Total Protein (6.3-8.2) g/dL Albumin (3.5-5.0) g/dL c-ANCA (<1:20) Titer Assessment and Plan Plan: Assessment: 1. Acute kidney injury secondary to ATN secondary to intravascular volume depletion from diarrhea and use of JEANMARIE inhibitor and nonsteroidals. Creatinine 15.6 on admission. Baseline creatinine is near 1. No evidence of hydronephrosis noted on renal ultrasound. Currently hemodialysis dependent. He is noted to have nephrotic range proteinuria. Urine eosinophils negative. MANUELITO, double-stranded DNA antibody, Hepatitis panel negative. SPEP negative. c- ANCA positive. 2. Severe hyperkalemia secondary to ramipril, acute kidney injury and metabolic acidosis. Improved postdialysis. 3. Metabolic acidosis secondary to acute kidney injury. Patient was also on metformin. Improved. 4. Insulin-dependent diabetes mellitus. 5. Pyuria. 6. Benign hypertension. Controlled. 7. Hyperphosphatemia secondary to acute kidney injury. 8. Anemia. Iron deficiency noted. Status post 3 doses of IV iron. 9. Volume overload. Improved with ultrafiltration. Plan: Hemodialysis tomorrow. Scheduled for kidney biopsy - currently on hold as he was on aspirin. I will give him DDAVP one hour prior to kidney biopsy. Avoid nephrotoxins. Continue to hold JEANMARIE inhibitor and metformin for now. Maintain current antihypertensives. Continue to monitor renal function and urine output closely. Continue to assess on a day-to-day basis for need for renal replacement therapy. Maintain PhosLo with meals. truck service manager on board to help facilitate outpatient hemodialysis set up. Patient noted to be c-ANCA positive - I will start IV solumedrol 1g daily x 3 days, then change to oral - 1st dose today. Once diagnosis confirmed with biopsy, will start either cytoxan or rituximab for induction therapy. Will also benefit from plasma exchange. Check anti-GBM.
--- NOTE | 2017-11-30 12:30 | P.PN ---
Subjective Progress Note Date: 11/30/17 This is a 82-year-old male patient who presented to the emergency room with complaints of increased weakness that has been occurring for the past 3-4 days. She has a known past medical history of prostate cancer, diabetes mellitus, hyperlipidemia and essential hypertension. Patient states that over the past week he's notes he has not been able to walk as far as he used to be able to. Chest x-ray completed showing rotated expiratory exam. Correlate to exclude pulmonary venous hypertension and interstitial edema. Initial labs showing creatinine of 15.61, bun 109 and potassium 9.0. Nephrology consulted immediately. Hemodialysis access per vascular disease and patient received hemodialysis in the emergency room last night. Patient is currently in the intensive care unit. Potassium now 5.8. Bun 82 and creatinine 11.24. Per nursing staff patient to receive hemodialysis again today per nephrology services. Troponin also elevated at 0.059. CT completed showing wide QRS rhythm and occasional premature ventricular complexes Cardiology services following. Per cardiology patient will be started on aspirin and small dose of metoprolol 12.5. 2-D echo will be ordered. Ultrasound of bladder and kidneys completed showing high no hydronephrosis. 3.5 cm cyst on the right. Dr. Do consulted for critical care consult. Patient currently on bicarb drip along with Cleveprex for blood pressure control. At this time patient states he is feeling improved. Patient denies chest pain or shortness of breath. Patient denies nausea vomiting or diarrhea. Patient denies any urinary burning or frequency. On 11/24/2017 patient is currently resting in bed. Creatinine 10.28 and bun 63. Potassium improving to 5.4. Per nursing staff patient to receive dialysis again today. At this time patient states he's feeling much improved. Patient denies chest pain or shortness breath. Patient denies nausea vomiting or diarrhea. Patient denies any urinary symptoms On 11/26/2017 patient is currently resting in bed. Creatinine remains elevated at 8.54 and bun 45. Potassium 5.0. Patient states he feels improved. at this time patient denies chest pains. Denies nausea. Denies urinary burning or frequency On 11/27/2017 patient is currently resting in bed. Patient denies any complaints at this time. Creatinine increasing to 10.26 and bun 57. Patient did not receive dialysis yesterday. Awaiting nephrology input in regards to hemodialysis today. This time patient denies chest pain or shortness of breath. Patient denies nausea vomiting or diarrhea. Patient denies any urinary burning or frequency 11/28/2017 patient was transferred out of the ICU yesterday. He is currently hemodialysis dependent. He is scheduled for hemodialysis tomorrow. Femoral catheter was not working well yesterday and this morning he was removed and he had a permacath placed. Patient remains oliguric. Nephrology is ordered another dose of IV Lasix. Small amount of urine is bloody in Hoang bag. Patient denies any chest pain or shortness of breath. Denies any nausea or vomiting. Reports having a regular bowel movement. On 11/29/2017 patient is currently resting comfortably in chair. Creatinine 11.06 and bun 68. Patient planning to get hemodialysis today per nephrology. This time patient denies chest pain or shortness breath. Patient denies nausea vomiting or diarrhea. Hoang catheter remains in place with minimum bloody urine output 11/30/2017 patient is scheduled for hemodialysis tomorrow. 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 Nephrology is started patient on IV Solu-Medrol 1 g daily for 3 days. Patient's urine output is still very low. Denies any nausea or vomiting. Denies any chest pain or shortness of breath. Reports having bowel movements. Objective - Vital Signs Vital signs: Vital Signs Temp 97.5 F L 11/30/17 07:43 Pulse 74 11/30/17 09:46 Resp 16 11/30/17 07:43 BP 118/60 11/30/17 09:42 Pulse Ox 96 11/30/17 07:43 Intake & Output 11/29/17 11/30/17 11/30/17 18:59 06:59 18:59 Intake Total 640 440 Output Total 40 Balance 640 400 Weight 124 kg 124 kg Intake: Oral 640 440 Output: Urine 40 Other: Voiding Method Indwelling Catheter Indwelling Catheter Indwelling Catheter - Exam Head normocephalic Neck supple Lungs clear to auscultation bilaterally no wheezing or crackles Heart regular rate and rhythm S1-S2, no rub or gallop Abdomen is soft nontender nondistended positive bowel sounds no hepatosplenomegaly Extremities no edema Neuro alert and orientated to 3 - Labs CBC & Chem 7: 11/30/17 06:55 11/30/17 06:55 Labs: Abnormal Lab Results - Last 24 Hours (Table) 11/26/17 11/29/17 11/29/17 Range/Units 11:22 16:55 20:38 WBC (3.8-10.6) k/uL RBC (4.30-5.90) m/uL Hgb (13.0-17.5) gm/dL Hct (39.0-53.0) % Neutrophils # (1.3-7.7) k/uL Lymphocytes # (1.0-4.8) k/uL Sodium (137-145) mmol/L BUN (9-20) mg/dL Creatinine (0.66-1.25) mg/dL Glucose (74-99) mg/dL POC Glucose (mg/dL) 128 H 261 H (75-99) mg/dL Calcium (8.4-10.2) mg/dL Total Protein (6.3-8.2) g/dL Albumin (3.5-5.0) g/dL c-ANCA 1:320 H (<1:20) Titer 11/30/17 11/30/17 11/30/17 Range/Units 06:44 06:55 06:55 WBC 10.9 H (3.8-10.6) k/uL RBC 3.46 L (4.30-5.90) m/uL Hgb 9.1 L (13.0-17.5) gm/dL Hct 28.5 L (39.0-53.0) % Neutrophils # 8.8 H (1.3-7.7) k/uL Lymphocytes # 0.7 L (1.0-4.8) k/uL Sodium 135 L (137-145) mmol/L BUN 47 H (9-20) mg/dL Creatinine 8.33 H* (0.66-1.25) mg/dL Glucose 155 H (74-99) mg/dL POC Glucose (mg/dL) 167 H (75-99) mg/dL Calcium 7.5 L (8.4-10.2) mg/dL Total Protein 5.4 L (6.3-8.2) g/dL Albumin 2.8 L (3.5-5.0) g/dL c-ANCA (<1:20) Titer 11/30/17 Range/Units 11:37 WBC (3.8-10.6) k/uL RBC (4.30-5.90) m/uL Hgb (13.0-17.5) gm/dL Hct (39.0-53.0) % Neutrophils # (1.3-7.7) k/uL Lymphocytes # (1.0-4.8) k/uL Sodium (137-145) mmol/L BUN (9-20) mg/dL Creatinine (0.66-1.25) mg/dL Glucose (74-99) mg/dL POC Glucose (mg/dL) 290 H (75-99) mg/dL Calcium (8.4-10.2) mg/dL Total Protein (6.3-8.2) g/dL Albumin (3.5-5.0) g/dL c-ANCA (<1:20) Titer Assessment and Plan Assessment: 1. Acute kidney injury with profound hyperkalemia causing profound weakness and EKG changes. Initial potassium 9.0, creatinine 15.61 and bun 109. Acute kidney injury secondary to ATN secondary to intravascular volume depletion from diarrhea, JEANMARIE inhibitor and NSAIDs. No evidence of hydronephrosis on ultrasound. Patient had emergent hemodialysis on admission. And is currently hemodialysis dependent. Nephrology workup in progress. Patient initially scheduled for a kidney biopsy which is currently on hold due to patient being on aspirin. Aspirin has been discontinued per nephrology. Continue to hold JEANMARIE inhibitor, metformin and nephrotoxic medications. c-ANCA is positive nephrology is started IV Solu-Medrol 1 g daily 3 days and then will switch over to oral prednisone. We'll await their further recommendations. 2. Severe Hyperkalemia. Secondary to JEANMARIE inhibitor, acute kidney injury and metabolic acidosis. Improved post dialysis. Initial potassium 9.0. 3. Elevated troponin. Troponin 0.059. EKG completed in emergency room showing wide QRS rhythm with occasional premature ventricular complexes. Cardiology service consulted. 2-D echo completed showing an EF of 55-60%. Per cardiology services continue with conservative medical approach with mild abnormal cardiac enzymes. Continue Lopressor 4. History of coronary artery disease 5. History of diabetes mellitus type 2. Metformin DC'd. Sliding scale insulin coverage has been added 6. History of essential hypertension. Patient currently on cleveprex drip for Blood pressure control. Cleveprex Has been discontinued 7. History of hyperlipidemia 8. History of prostate cancer. Status post prostatectomy 9. Status post aortic valve replacement for aortic stenosis 10. History of hypothyroidism. Synthroid resumed 11. Iron deficiency anemia. Patient has received IV iron 3 doses per nephrology. 12. Metabolic acidosis secondary to acute kidney injury as well as metformin. Now improved 13. Hyperphosphatemia secondary to acute kidney injury. Continue PhosLo DVT prophylaxis heparin GI prophylaxis Protonix nonprofit manager working on ECF placement at [facility] with dialysis at time of discharge. Patient currently needing 3 days of IV Solu-Medrol prior to discharge I performed an examination of the patient and discussed their management with the physician Development Assistant. I have reviewed the Physician Development Assistant's notes and agree with the documented findings and plan of care
[2017-11-30] MEDS ORDERED: DESMOPRESSIN ACETATE IVPB ONE (13:00)
[2017-11-30] MEDS ORDERED: SODIUM CHLORIDE 0.9% IVPB ONE (13:00)
[2017-11-30 17:24] LABS: Glucose,Whole Blood 245 mg/dL (75-99)
[2017-11-30 20:35] LABS: Glucose,Whole Blood 283 mg/dL (75-99)
[2017-11-30] MEDS: LEVOTHYROXINE 25 MCG TAB PO SCH (20:38)
[2017-12-01] MEDS: CLEVIDIPINE BUTYRATE 25 MG in EMPTY BAG 1 BAG IV SCH (01:14)
[2017-12-01 07:12] LABS: Glucose,Whole Blood 337 mg/dL (75-99)
[2017-12-01 07:59] LABS: Basophils % (A) 0 %; Eosinophils % (A) 0 %; HCT 28.7 % (39.0-53.0); HGB 9.6 gm/dL (13.0-17.5); Lymphocytes # (A) 0.3 k/uL (1.0-4.8); Lymphocytes % (A) 4 %; MCH 27.7 pg (25.0-35.0); MCHC 33.4 g/dL (31.0-37.0); MCV 83.1 fL (80.0-100.0); Mean Platelet Volume 6.9; Monocytes # (A) 0.2 k/uL (0-1.0); Monocytes % (A) 2 %; Neutrophils # (A) 8.4 k/uL (1.3-7.7); Neutrophils % (A) 94 %; Platelet Count 346 k/uL (150-450); RBC 3.46 m/uL (4.30-5.90); RDW 15.1 % (11.5-15.5); WBC 8.9 k/uL (3.8-10.6)
[2017-12-01 08:29] LABS: Calcium 7.6 mg/dL (8.4-10.2); Potassium 5.4 mmol/L (3.5-5.1); Total Bilirubin 0.5 mg/dL (0.2-1.3); Total Protein 5.6 g/dL (6.3-8.2)
[2017-12-01] MEDS: INSULIN ASPART 100 UNIT/ML 1 ML 10 ML VIAL SQ SCH ×3 (08:47→18:02)
[2017-12-01] MEDS: hydrALAZINE HCL 25 MG TAB PO SCH ×3 (08:47→22:46)
[2017-12-01] MEDS: PANTOPRAZOLE 40 MG TABLET PO SCH (08:48)
[2017-12-01] MEDS: METOPROLOL TARTRATE 12.5 MG TAB PO SCH ×2 (08:48→21:53)
[2017-12-01] MEDS: CALCIUM ACETATE 667 MG CAP PO SCH ×3 (08:48→18:02)
[2017-12-01] MEDS: HEPARIN SODIUM,PORCINE 5,000 UNIT/ML 1 ML VIAL SQ SCH ×2 (08:48→21:53)
[2017-12-01 10:41] LABS: Glucose,Whole Blood 479 mg/dL (75-99)
--- NOTE | 2017-12-01 11:00 | P.PN ---
Subjective Progress Note Date: 12/01/17 This is a 82-year-old male patient who presented to the emergency room with complaints of increased weakness that has been occurring for the past 3-4 days. She has a known past medical history of prostate cancer, diabetes mellitus, hyperlipidemia and essential hypertension. Patient states that over the past week he's notes he has not been able to walk as far as he used to be able to. Chest x-ray completed showing rotated expiratory exam. Correlate to exclude pulmonary venous hypertension and interstitial edema. Initial labs showing creatinine of 15.61, bun 109 and potassium 9.0. Nephrology consulted immediately. Hemodialysis access per vascular disease and patient received hemodialysis in the emergency room last night. Patient is currently in the intensive care unit. Potassium now 5.8. Bun 82 and creatinine 11.24. Per nursing staff patient to receive hemodialysis again today per nephrology services. Troponin also elevated at 0.059. CT completed showing wide QRS rhythm and occasional premature ventricular complexes Cardiology services following. Per cardiology patient will be started on aspirin and small dose of metoprolol 12.5. 2-D echo will be ordered. Ultrasound of bladder and kidneys completed showing high no hydronephrosis. 3.5 cm cyst on the right. Dr. Do consulted for critical care consult. Patient currently on bicarb drip along with Cleveprex for blood pressure control. At this time patient states he is feeling improved. Patient denies chest pain or shortness of breath. Patient denies nausea vomiting or diarrhea. Patient denies any urinary burning or frequency. On 11/24/2017 patient is currently resting in bed. Creatinine 10.28 and bun 63. Potassium improving to 5.4. Per nursing staff patient to receive dialysis again today. At this time patient states he's feeling much improved. Patient denies chest pain or shortness breath. Patient denies nausea vomiting or diarrhea. Patient denies any urinary symptoms On 11/26/2017 patient is currently resting in bed. Creatinine remains elevated at 8.54 and bun 45. Potassium 5.0. Patient states he feels improved. at this time patient denies chest pains. Denies nausea. Denies urinary burning or frequency On 11/27/2017 patient is currently resting in bed. Patient denies any complaints at this time. Creatinine increasing to 10.26 and bun 57. Patient did not receive dialysis yesterday. Awaiting nephrology input in regards to hemodialysis today. This time patient denies chest pain or shortness of breath. Patient denies nausea vomiting or diarrhea. Patient denies any urinary burning or frequency 11/28/2017 patient was transferred out of the ICU yesterday. He is currently hemodialysis dependent. He is scheduled for hemodialysis tomorrow. Femoral catheter was not working well yesterday and this morning he was removed and he had a permacath placed. Patient remains oliguric. Nephrology is ordered another dose of IV Lasix. Small amount of urine is bloody in Hoang bag. Patient denies any chest pain or shortness of breath. Denies any nausea or vomiting. Reports having a regular bowel movement. On 11/29/2017 patient is currently resting comfortably in chair. Creatinine 11.06 and bun 68. Patient planning to get hemodialysis today per nephrology. This time patient denies chest pain or shortness breath. Patient denies nausea vomiting or diarrhea. Hoang catheter remains in place with minimum bloody urine output 11/30/2017 patient is scheduled for hemodialysis tomorrow. 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 Nephrology is started patient on IV Solu-Medrol 1 g daily for 3 days. Patient's urine output is still very low. Denies any nausea or vomiting. Denies any chest pain or shortness of breath. Reports having bowel movements. 12/01/2017 patient is scheduled for hemodialysis today. He remains on IV Solu- Medrol for the positive CANCA. Still having very low urine output. Patient having elevated blood sugars secondary to steroids. Blood sugars are in the 300s to 400 this morning. He'll be placed on an insulin drip. Patient denies any chest pain or shortness of breath. Denies any nausea or vomiting. Reports having bowel movements. Objective - Vital Signs Vital signs: Vital Signs Temp 97.5 F L 12/01/17 07:09 Pulse 78 12/01/17 07:09 Resp 16 12/01/17 07:09 BP 174/77 12/01/17 07:09 Pulse Ox 92 L 12/01/17 07:09 Intake & Output 11/30/17 12/01/17 12/01/17 18:59 06:59 18:59 Intake Total 100 240 480 Balance 100 240 480 Weight 124 kg 125 kg Intake: Oral 100 240 480 Other: Voiding Method Indwelling Catheter Indwelling Catheter Indwelling Catheter - Exam Head normocephalic Neck supple Lungs clear to auscultation bilaterally no wheezing or crackles Heart regular rate and rhythm S1-S2, no rub or gallop Abdomen is soft nontender nondistended positive bowel sounds no hepatosplenomegaly Extremities trace edema bilaterally Neuro alert and orientated to 3 - Labs CBC & Chem 7: 12/01/17 07:20 12/01/17 07:20 Labs: Abnormal Lab Results - Last 24 Hours (Table) 11/30/17 11/30/17 11/30/17 Range/Units 11:37 17:10 20:34 RBC (4.30-5.90) m/uL Hgb (13.0-17.5) gm/dL Hct (39.0-53.0) % Neutrophils # (1.3-7.7) k/uL Lymphocytes # (1.0-4.8) k/uL Sodium (137-145) mmol/L Potassium (3.5-5.1) mmol/L Chloride (98-107) mmol/L Carbon Dioxide (22-30) mmol/L BUN (9-20) mg/dL Creatinine (0.66-1.25) mg/dL Glucose (74-99) mg/dL POC Glucose (mg/dL) 290 H 245 H 283 H (75-99) mg/dL Calcium (8.4-10.2) mg/dL Total Protein (6.3-8.2) g/dL Albumin (3.5-5.0) g/dL 12/01/17 12/01/17 12/01/17 Range/Units 07:10 07:20 07:20 RBC 3.46 L (4.30-5.90) m/uL Hgb 9.6 L (13.0-17.5) gm/dL Hct 28.7 L (39.0-53.0) % Neutrophils # 8.4 H (1.3-7.7) k/uL Lymphocytes # 0.3 L (1.0-4.8) k/uL Sodium 132 L (137-145) mmol/L Potassium 5.4 H (3.5-5.1) mmol/L Chloride 96 L (98-107) mmol/L Carbon Dioxide 20 L (22-30) mmol/L BUN 66 H (9-20) mg/dL Creatinine 10.00 H* (0.66-1.25) mg/dL Glucose 326 H (74-99) mg/dL POC Glucose (mg/dL) 337 H (75-99) mg/dL Calcium 7.6 L (8.4-10.2) mg/dL Total Protein 5.6 L (6.3-8.2) g/dL Albumin 3.0 L (3.5-5.0) g/dL 12/01/17 Range/Units 10:38 RBC (4.30-5.90) m/uL Hgb (13.0-17.5) gm/dL Hct (39.0-53.0) % Neutrophils # (1.3-7.7) k/uL Lymphocytes # (1.0-4.8) k/uL Sodium (137-145) mmol/L Potassium (3.5-5.1) mmol/L Chloride (98-107) mmol/L Carbon Dioxide (22-30) mmol/L BUN (9-20) mg/dL Creatinine (0.66-1.25) mg/dL Glucose (74-99) mg/dL POC Glucose (mg/dL) 479 H (75-99) mg/dL Calcium (8.4-10.2) mg/dL Total Protein (6.3-8.2) g/dL Albumin (3.5-5.0) g/dL Assessment and Plan Assessment: 1. Acute kidney injury with profound hyperkalemia causing profound weakness and EKG changes. Initial potassium 9.0, creatinine 15.61 and bun 109. Acute kidney injury secondary to ATN secondary to intravascular volume depletion from diarrhea, JEANMARIE inhibitor and NSAIDs. No evidence of hydronephrosis on ultrasound. Patient had emergent hemodialysis on admission. And is currently hemodialysis dependent. Nephrology workup in progress. Patient initially scheduled for a kidney biopsy which is currently on hold due to patient being on aspirin. Aspirin has been discontinued per nephrology. Continue to hold JEANMARIE inhibitor, metformin and nephrotoxic medications. c-ANCA is positive nephrology is started IV Solu-Medrol 1 g daily 3 days and then will switch over to oral prednisone. Today is day 2 of the IV Solu-Medrol. We'll await their further recommendations. Patient scheduled for hemodialysis today. 2. Severe Hyperkalemia. Secondary to JEANMARIE inhibitor, acute kidney injury and metabolic acidosis. Improved post dialysis. Initial potassium 9.0. Patient is hyperkalemic at 5.4. Should correct with hemodialysis 3. Elevated troponin. Troponin 0.059. EKG completed in emergency room showing wide QRS rhythm with occasional premature ventricular complexes. Cardiology service consulted. 2-D echo completed showing an EF of 55-60%. Per cardiology services continue with conservative medical approach with mild abnormal cardiac enzymes. Continue Lopressor 4. History of coronary artery disease 5. History of diabetes mellitus type 2. Patient having hyperglycemia with blood sugars in the 200s to 400s due to the IV steroids. We'll place him on insulin drip while on steroids. 6. History of essential hypertension. Elevated blood pressure 174/77. Continue with current medications hydralazine and metoprolol 7. History of hyperlipidemia 8. History of prostate cancer. Status post prostatectomy 9. Status post aortic valve replacement for aortic stenosis 10. History of hypothyroidism. Synthroid resumed 11. Iron deficiency anemia. Patient has received IV iron 3 doses per nephrology. 12. Metabolic acidosis secondary to acute kidney injury as well as metformin. Now improved 13. Hyperphosphatemia secondary to acute kidney injury. Continue PhosLo DVT prophylaxis heparin GI prophylaxis Protonix manager basketball working on ECF placement at [facility] with dialysis at time of discharge. Patient currently needing 3 days of IV Solu-Medrol prior to discharge I performed an examination of the patient and discussed their management with the physician Business Teacher. I have reviewed the Physician Business Teacher's notes and agree with the documented findings and plan of care
--- NOTE | 2017-12-01 11:29 | P.PN ---
Subjective Patient is seen in follow-up for acute kidney injury. Creatinine was over 15 on admission and potassium level was 9. He is currently hemodialysis dependent. Patient is awake and alert. Denies chest pain or shortness of breath. Oral intake is good. Patient remains oliguric. Patient has a permacath in place. Creatinine June 2014 and July 2016 was 1.1. Patient is noted to be c-ANCA positive and is scheduled for kidney biopsy on Monday. Vital signs are stable. General: The patient appeared well nourished and normally developed. HEENT: Head exam is unremarkable. Neck is without jugular venous distension. LUNGS: Breath sounds decreased. HEART: Rate and Rhythm are regular. First and second heart sounds normal. No murmurs, rubs or gallops. ABDOMEN: Abdominal exam reveals normal bowel sounds. Non-tender and non- distended. No evidence of peritonitis. EXTREMITITES: No clubbing, cyanosis, or edema. Objective - Vital Signs Vital signs: Vital Signs Temp 97.5 F L 12/01/17 07:09 Pulse 78 12/01/17 07:09 Resp 16 12/01/17 07:09 BP 174/77 12/01/17 07:09 Pulse Ox 92 L 12/01/17 07:09 Intake & Output 11/30/17 12/01/17 12/01/17 18:59 06:59 18:59 Intake Total 100 240 480 Balance 100 240 480 Weight 124 kg 125 kg Intake: Oral 100 240 480 Other: Voiding Method Indwelling Catheter Indwelling Catheter Indwelling Catheter - Labs CBC & Chem 7: 12/01/17 07:20 12/01/17 07:20 Labs: Abnormal Lab Results - Last 24 Hours (Table) 11/30/17 11/30/17 11/30/17 Range/Units 11:37 17:10 20:34 RBC (4.30-5.90) m/uL Hgb (13.0-17.5) gm/dL Hct (39.0-53.0) % Neutrophils # (1.3-7.7) k/uL Lymphocytes # (1.0-4.8) k/uL Sodium (137-145) mmol/L Potassium (3.5-5.1) mmol/L Chloride (98-107) mmol/L Carbon Dioxide (22-30) mmol/L BUN (9-20) mg/dL Creatinine (0.66-1.25) mg/dL Glucose (74-99) mg/dL POC Glucose (mg/dL) 290 H 245 H 283 H (75-99) mg/dL Calcium (8.4-10.2) mg/dL Total Protein (6.3-8.2) g/dL Albumin (3.5-5.0) g/dL 12/01/17 12/01/17 12/01/17 Range/Units 07:10 07:20 07:20 RBC 3.46 L (4.30-5.90) m/uL Hgb 9.6 L (13.0-17.5) gm/dL Hct 28.7 L (39.0-53.0) % Neutrophils # 8.4 H (1.3-7.7) k/uL Lymphocytes # 0.3 L (1.0-4.8) k/uL Sodium 132 L (137-145) mmol/L Potassium 5.4 H (3.5-5.1) mmol/L Chloride 96 L (98-107) mmol/L Carbon Dioxide 20 L (22-30) mmol/L BUN 66 H (9-20) mg/dL Creatinine 10.00 H* (0.66-1.25) mg/dL Glucose 326 H (74-99) mg/dL POC Glucose (mg/dL) 337 H (75-99) mg/dL Calcium 7.6 L (8.4-10.2) mg/dL Total Protein 5.6 L (6.3-8.2) g/dL Albumin 3.0 L (3.5-5.0) g/dL 12/01/17 Range/Units 10:38 RBC (4.30-5.90) m/uL Hgb (13.0-17.5) gm/dL Hct (39.0-53.0) % Neutrophils # (1.3-7.7) k/uL Lymphocytes # (1.0-4.8) k/uL Sodium (137-145) mmol/L Potassium (3.5-5.1) mmol/L Chloride (98-107) mmol/L Carbon Dioxide (22-30) mmol/L BUN (9-20) mg/dL Creatinine (0.66-1.25) mg/dL Glucose (74-99) mg/dL POC Glucose (mg/dL) 479 H (75-99) mg/dL Calcium (8.4-10.2) mg/dL Total Protein (6.3-8.2) g/dL Albumin (3.5-5.0) g/dL Assessment and Plan Plan: Assessment: 1. Acute kidney injury secondary to ATN secondary to intravascular volume depletion from diarrhea and use of JEANMARIE inhibitor and nonsteroidals. Also concern for vasculitis. Creatinine 15.6 on admission. Baseline creatinine is near 1. No evidence of hydronephrosis noted on renal ultrasound. Currently hemodialysis dependent. He is noted to have nephrotic range proteinuria. Urine eosinophils negative. MANUELITO, double-stranded DNA antibody, Hepatitis panel negative. SPEP negative. c-ANCA positive. 2. Severe hyperkalemia secondary to ramipril, acute kidney injury and metabolic acidosis. Improved postdialysis. 3. Metabolic acidosis secondary to acute kidney injury. Patient was also on metformin. 4. Insulin-dependent diabetes mellitus. 5. Pyuria. 6. Benign hypertension. BP high - partially due to steroids. 7. Hyperphosphatemia secondary to acute kidney injury. 8. Anemia. Iron deficiency noted. Status post 3 doses of IV iron. 9. Volume overload. Improved with ultrafiltration. Plan: Hemodialysis today. Scheduled for kidney biopsy - currently on hold as he was on aspirin. I will give him DDAVP one hour prior to kidney biopsy. Avoid nephrotoxins. Continue to hold JEANMARIE inhibitor and metformin for now. Maintain current antihypertensives. Continue to monitor renal function and urine output closely. Continue to assess on a day-to-day basis for need for renal replacement therapy. Maintain PhosLo with meals. recruiting manager on board to help facilitate outpatient hemodialysis set up. Patient noted to be c-ANCA positive - I will start IV solumedrol 1g daily x 3 days, then change to oral - 2nd dose today. Once diagnosis confirmed with biopsy, will start either cytoxan or rituximab for induction therapy. Will also benefit from plasma exchange. Check anti-GBM. Increase hydralazine to 100 mg 3 times daily.
[2017-12-01] MEDS ORDERED: INSULIN REGULAR BOLUS (FROM DRIP BAG) IV ONE (11:41)
[2017-12-01 12:04] LABS: Glucose,Whole Blood 485 mg/dL (75-99)
[2017-12-01] MEDS ORDERED: INSULIN ASPART 100 UNIT/ML 1 ML 10 ML VIAL SQ ONE (13:13)
[2017-12-01 14:46] VITALS: BMI 37.3
[2017-12-01 15:10] LABS: Glucose,Whole Blood 543 mg/dL (75-99)
[2017-12-01] MEDS: INSULIN REGULAR 100 UNIT in SODIUM CHLORIDE 0.9% 100 ML IV SCH ×3 (15:14→18:50)
[2017-12-01 15:45] LABS: Glucose,Whole Blood 509 mg/dL (75-99)
[2017-12-01 16:16] LABS: Glucose,Whole Blood 495 mg/dL (75-99)
[2017-12-01 16:47] LABS: Glucose,Whole Blood 453 mg/dL (75-99)
[2017-12-01 17:50] LABS: Glucose,Whole Blood 328 mg/dL (75-99)
[2017-12-01 18:18] LABS: Glucose,Whole Blood 268 mg/dL (75-99)
[2017-12-01 18:51] LABS: Glucose,Whole Blood 218 mg/dL (75-99)
[2017-12-01 20:28] LABS: Glucose,Whole Blood 208 mg/dL (75-99)
[2017-12-01] MEDS: LEVOTHYROXINE 25 MCG TAB PO SCH (21:53)
[2017-12-01 22:42] LABS: Glucose,Whole Blood 120 mg/dL (75-99)
[2017-12-01 23:34] LABS: Glucose,Whole Blood 143 mg/dL (75-99)
[2017-12-02 01:56] LABS: Glucose,Whole Blood 181 mg/dL (75-99)
[2017-12-02 04:16] LABS: Glucose,Whole Blood 139 mg/dL (75-99)
[2017-12-02 06:11] LABS: Glucose,Whole Blood 171 mg/dL (75-99)
[2017-12-02 07:16] LABS: Glucose,Whole Blood 178 mg/dL (75-99)
[2017-12-02 07:54] LABS: Basophils % (A) 0 %; Eosinophils % (A) 0 %; HCT 27.2 % (39.0-53.0); HGB 8.9 gm/dL (13.0-17.5); Lymphocytes # (A) 0.5 k/uL (1.0-4.8); Lymphocytes % (A) 3 %; MCH 26.7 pg (25.0-35.0); MCHC 32.7 g/dL (31.0-37.0); MCV 81.8 fL (80.0-100.0); Mean Platelet Volume 7.1; Monocytes # (A) 1.1 k/uL (0-1.0); Monocytes % (A) 6 %; Neutrophils # (A) 15.2 k/uL (1.3-7.7); Neutrophils % (A) 90 %; Platelet Count 343 k/uL (150-450); RBC 3.32 m/uL (4.30-5.90); RDW 14.9 % (11.5-15.5); WBC 16.9 k/uL (3.8-10.6)
[2017-12-02 08:14] LABS: Calcium 7.8 mg/dL (8.4-10.2); Phosphorus 6.2 mg/dL (2.5-4.5); Potassium 4.9 mmol/L (3.5-5.1)
[2017-12-02] MEDS: METOPROLOL TARTRATE 12.5 MG TAB PO SCH (08:39)
[2017-12-02] MEDS: HEPARIN SODIUM,PORCINE 5,000 UNIT/ML 1 ML VIAL SQ SCH ×2 (08:39→20:02)
[2017-12-02] MEDS: PANTOPRAZOLE 40 MG TABLET PO SCH (08:39)
[2017-12-02] MEDS: INSULIN ASPART 100 UNIT/ML 1 ML 10 ML VIAL SQ SCH ×3 (08:40→18:12)
[2017-12-02] MEDS: CALCIUM ACETATE 667 MG CAP PO SCH ×3 (08:40→18:10)
[2017-12-02] MEDS: hydrALAZINE HCL 25 MG TAB PO SCH (08:40)
--- NOTE | 2017-12-02 09:52 | P.PN ---
Subjective Progress Note Date: 12/02/17 (Nephrology) Principal diagnosis: Acute kidney injury Patient seen and examined for the follow-up of acute kidney injury. He was admitted with a creatinine of 15 and a potassium of 9. Currently hemodialysis dependent via right jugular permacath. Still oliguric. 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 No nausea vomiting diarrhea. Had dialysis done this morning. Objective - Vital Signs Vital signs: Vital Signs Temp 97.2 F L 12/02/17 01:52 Pulse 65 12/02/17 01:52 Resp 16 12/02/17 01:52 BP 132/60 12/02/17 01:52 Pulse Ox 95 12/02/17 01:52 Intake & Output 12/01/17 12/02/17 12/02/17 18:59 06:59 18:59 Intake Total 1026.080 541.091 Output Total 50 Balance 1026.080 491.091 Weight 125 kg 126 kg Intake: Intake, IV Titration 309.080 41.091 Amount Insulin Regular 100 unit 109.080 41.091 In Sodium Chloride 0.9% 100 ml @ Titrate IV .Q0M [facility] Rx#:[id number] Sodium Chloride 0.9% 500 100 ml 500 ml @ 0 mls/hr IV . [facility] Rx#: [id number] methylPREDNISolone SOD 100 SUCC 1,000 mg In Sodium Chloride 0.9% 100 ml @ 100 mls/hr IVPB DAILY [facility] Rx#:[id number] Oral 717 500 Output: Urine 50 Uretheral (Hoang) 50 Other: Voiding Method Indwelling Catheter Indwelling Catheter - Exam Lying in bed no acute distress S1-S2 heard Lungs clear Right jugular permacath 1+ edema - Labs CBC & Chem 7: 12/02/17 07:27 12/02/17 07:27 Labs: Abnormal Lab Results - Last 24 Hours (Table) 12/01/17 12/01/17 12/01/17 Range/Units 10:38 12:02 15:08 WBC (3.8-10.6) k/uL RBC (4.30-5.90) m/uL Hgb (13.0-17.5) gm/dL Hct (39.0-53.0) % Neutrophils # (1.3-7.7) k/uL Lymphocytes # (1.0-4.8) k/uL Monocytes # (0-1.0) k/uL Sodium (137-145) mmol/L BUN (9-20) mg/dL Creatinine (0.66-1.25) mg/dL Glucose (74-99) mg/dL POC Glucose (mg/dL) 479 H 485 H 543 H (75-99) mg/dL Calcium (8.4-10.2) mg/dL Phosphorus (2.5-4.5) mg/dL 12/01/17 12/01/17 12/01/17 Range/Units 15:44 16:15 16:46 WBC (3.8-10.6) k/uL RBC (4.30-5.90) m/uL Hgb (13.0-17.5) gm/dL Hct (39.0-53.0) % Neutrophils # (1.3-7.7) k/uL Lymphocytes # (1.0-4.8) k/uL Monocytes # (0-1.0) k/uL Sodium (137-145) mmol/L BUN (9-20) mg/dL Creatinine (0.66-1.25) mg/dL Glucose (74-99) mg/dL POC Glucose (mg/dL) 509 H 495 H 453 H (75-99) mg/dL Calcium (8.4-10.2) mg/dL Phosphorus (2.5-4.5) mg/dL 12/01/17 12/01/17 12/01/17 Range/Units 17:49 18:17 18:49 WBC (3.8-10.6) k/uL RBC (4.30-5.90) m/uL Hgb (13.0-17.5) gm/dL Hct (39.0-53.0) % Neutrophils # (1.3-7.7) k/uL Lymphocytes # (1.0-4.8) k/uL Monocytes # (0-1.0) k/uL Sodium (137-145) mmol/L BUN (9-20) mg/dL Creatinine (0.66-1.25) mg/dL Glucose (74-99) mg/dL POC Glucose (mg/dL) 328 H 268 H 218 H (75-99) mg/dL Calcium (8.4-10.2) mg/dL Phosphorus (2.5-4.5) mg/dL 12/01/17 12/01/17 12/01/17 Range/Units 20:26 22:40 23:32 WBC (3.8-10.6) k/uL RBC (4.30-5.90) m/uL Hgb (13.0-17.5) gm/dL Hct (39.0-53.0) % Neutrophils # (1.3-7.7) k/uL Lymphocytes # (1.0-4.8) k/uL Monocytes # (0-1.0) k/uL Sodium (137-145) mmol/L BUN (9-20) mg/dL Creatinine (0.66-1.25) mg/dL Glucose (74-99) mg/dL POC Glucose (mg/dL) 208 H 120 H 143 H (75-99) mg/dL Calcium (8.4-10.2) mg/dL Phosphorus (2.5-4.5) mg/dL 12/02/17 12/02/17 12/02/17 Range/Units 01:55 04:13 06:09 WBC (3.8-10.6) k/uL RBC (4.30-5.90) m/uL Hgb (13.0-17.5) gm/dL Hct (39.0-53.0) % Neutrophils # (1.3-7.7) k/uL Lymphocytes # (1.0-4.8) k/uL Monocytes # (0-1.0) k/uL Sodium (137-145) mmol/L BUN (9-20) mg/dL Creatinine (0.66-1.25) mg/dL Glucose (74-99) mg/dL POC Glucose (mg/dL) 181 H 139 H 171 H (75-99) mg/dL Calcium (8.4-10.2) mg/dL Phosphorus (2.5-4.5) mg/dL 12/02/17 12/02/17 12/02/17 Range/Units 07:04 07:27 07:27 WBC 16.9 H (3.8-10.6) k/uL RBC 3.32 L (4.30-5.90) m/uL Hgb 8.9 L (13.0-17.5) gm/dL Hct 27.2 L (39.0-53.0) % Neutrophils # 15.2 H (1.3-7.7) k/uL Lymphocytes # 0.5 L (1.0-4.8) k/uL Monocytes # 1.1 H (0-1.0) k/uL Sodium 134 L (137-145) mmol/L BUN 64 H (9-20) mg/dL Creatinine 8.77 H* (0.66-1.25) mg/dL Glucose 157 H (74-99) mg/dL POC Glucose (mg/dL) 178 H (75-99) mg/dL Calcium 7.8 L (8.4-10.2) mg/dL Phosphorus 6.2 H (2.5-4.5) mg/dL Assessment and Plan Assessment: #1 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 Currently on hemodialysis Y right jugular permacath. #2 severe hyperkalemia secondary to acute kidney injury, resolved with dialysis #3 metabolic acidosis secondary to acute kidney injury #4 edema #5 hypertension #6 anemia multifactorial #7 diabetes on insulin Plan: #1 had hemodialysis today. Plan again on Monday. #2 on Solu-Medrol 1 g 3 doses. Will change to oral prednisone 60 mg daily from tomorrow. #3 renal biopsy on Monday. Based on renal biopsy plan immunosuppressants #4 currently on hydralazine. Hydralazine is also notorious to cause drug- induced vasculitis. We will change hydralazine to Procardia and metoprolol to Coreg for better blood pressure control. Goal blood pressure is less than 140/ 90. #5 avoid nephrotoxic agents and hypotensive episodes.
[2017-12-02] MEDS: INSULIN REGULAR 100 UNIT in SODIUM CHLORIDE 0.9% 100 ML IV SCH ×2 (11:06→23:58)
[2017-12-02] MEDS: NIFEdipine XL 90 MG TAB.ER.24 PO SCH (11:08)
[2017-12-02 11:16] LABS: Glucose,Whole Blood 151 mg/dL (75-99)
[2017-12-02 11:16] LABS: Glucose,Whole Blood 166 mg/dL (75-99)
--- NOTE | 2017-12-02 11:55 | P.PN ---
Subjective Progress Note Date: 12/02/17 This is a 82-year-old male patient who presented to the emergency room with complaints of increased weakness that has been occurring for the past 3-4 days. She has a known past medical history of prostate cancer, diabetes mellitus, hyperlipidemia and essential hypertension. Patient states that over the past week he's notes he has not been able to walk as far as he used to be able to. Chest x-ray completed showing rotated expiratory exam. Correlate to exclude pulmonary venous hypertension and interstitial edema. Initial labs showing creatinine of 15.61, bun 109 and potassium 9.0. Nephrology consulted immediately. Hemodialysis access per vascular disease and patient received hemodialysis in the emergency room last night. Patient is currently in the intensive care unit. Potassium now 5.8. Bun 82 and creatinine 11.24. Per nursing staff patient to receive hemodialysis again today per nephrology services. Troponin also elevated at 0.059. CT completed showing wide QRS rhythm and occasional premature ventricular complexes Cardiology services following. Per cardiology patient will be started on aspirin and small dose of metoprolol 12.5. 2-D echo will be ordered. Ultrasound of bladder and kidneys completed showing high no hydronephrosis. 3.5 cm cyst on the right. Dr. Do consulted for critical care consult. Patient currently on bicarb drip along with Cleveprex for blood pressure control. At this time patient states he is feeling improved. Patient denies chest pain or shortness of breath. Patient denies nausea vomiting or diarrhea. Patient denies any urinary burning or frequency. On 11/24/2017 patient is currently resting in bed. Creatinine 10.28 and bun 63. Potassium improving to 5.4. Per nursing staff patient to receive dialysis again today. At this time patient states he's feeling much improved. Patient denies chest pain or shortness breath. Patient denies nausea vomiting or diarrhea. Patient denies any urinary symptoms On 11/26/2017 patient is currently resting in bed. Creatinine remains elevated at 8.54 and bun 45. Potassium 5.0. Patient states he feels improved. at this time patient denies chest pains. Denies nausea. Denies urinary burning or frequency On 11/27/2017 patient is currently resting in bed. Patient denies any complaints at this time. Creatinine increasing to 10.26 and bun 57. Patient did not receive dialysis yesterday. Awaiting nephrology input in regards to hemodialysis today. This time patient denies chest pain or shortness of breath. Patient denies nausea vomiting or diarrhea. Patient denies any urinary burning or frequency 11/28/2017 patient was transferred out of the ICU yesterday. He is currently hemodialysis dependent. He is scheduled for hemodialysis tomorrow. Femoral catheter was not working well yesterday and this morning he was removed and he had a permacath placed. Patient remains oliguric. Nephrology is ordered another dose of IV Lasix. Small amount of urine is bloody in Hoang bag. Patient denies any chest pain or shortness of breath. Denies any nausea or vomiting. Reports having a regular bowel movement. On 11/29/2017 patient is currently resting comfortably in chair. Creatinine 11.06 and bun 68. Patient planning to get hemodialysis today per nephrology. This time patient denies chest pain or shortness breath. Patient denies nausea vomiting or diarrhea. Hoang catheter remains in place with minimum bloody urine output 11/30/2017 patient is scheduled for hemodialysis tomorrow. 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 Nephrology is started patient on IV Solu-Medrol 1 g daily for 3 days. Patient's urine output is still very low. Denies any nausea or vomiting. Denies any chest pain or shortness of breath. Reports having bowel movements. 12/01/2017 patient is scheduled for hemodialysis today. He remains on IV Solu- Medrol for the positive CANCA. Still having very low urine output. Patient having elevated blood sugars secondary to steroids. Blood sugars are in the 300s to 400 this morning. He'll be placed on an insulin drip. Patient denies any chest pain or shortness of breath. Denies any nausea or vomiting. Reports having bowel movements. On 12/02/2017 patient is alert and oriented 3 in no apparent distress he denies any chest pain or shortness of breath there is no fever or chills no headache or dizziness no cough no palpitation no nausea or vomiting no abdominal pain and no urinary symptoms. Patient is maintained on IV Solu- Medrol 1 g daily for 3 days he will be switched to oral prednisone 60 mg daily subsequently. He has oliguric acute renal failure with positive C-ANCA he is scheduled for renal biopsy on Monday. Currently maintained on hemodialysis. Objective - Vital Signs Vital signs: Vital Signs Temp 97.5 F L 12/02/17 08:00 Pulse 75 12/02/17 08:00 Resp 16 12/02/17 08:00 BP 125/72 12/02/17 08:00 Pulse Ox 95 12/02/17 08:00 Intake & Output 12/01/17 12/02/17 12/02/17 18:59 06:59 18:59 Intake Total 1026.080 541.091 267.267 Output Total 50 Balance 1026.080 491.091 267.267 Weight 125 kg 126 kg Intake: Intake, IV Titration 309.080 41.091 17.267 Amount Insulin Regular 100 unit 109.080 41.091 17.267 In Sodium Chloride 0.9% 100 ml @ Titrate IV .Q0M [facility] Rx#:[id number] Sodium Chloride 0.9% 500 100 ml 500 ml @ 0 mls/hr IV . [facility] Rx#: [id number] methylPREDNISolone SOD 100 SUCC 1,000 mg In Sodium Chloride 0.9% 100 ml @ 100 mls/hr IVPB DAILY [facility] Rx#:[id number] Oral 717 500 250 Output: Urine 50 Uretheral (Hoang) 50 Other: Voiding Method Indwelling Catheter Indwelling Catheter Indwelling Catheter - Exam Head normocephalic and atraumatic Neck supple no JVD no goiter Lungs clear to auscultation bilaterally no wheezing or crackles Heart regular rate and rhythm S1-S2, no rub or gallop Abdomen is soft nontender nondistended positive bowel sounds no hepatosplenomegaly Extremities no edema no cyanosis or clubbing Neuro alert and orientated to 3 with no gross focal deficit - Labs CBC & Chem 7: 12/02/17 07:27 12/02/17 07:27 Labs: Abnormal Lab Results - Last 24 Hours (Table) 12/01/17 12/01/17 12/01/17 Range/Units 12:02 15:08 15:44 WBC (3.8-10.6) k/uL RBC (4.30-5.90) m/uL Hgb (13.0-17.5) gm/dL Hct (39.0-53.0) % Neutrophils # (1.3-7.7) k/uL Lymphocytes # (1.0-4.8) k/uL Monocytes # (0-1.0) k/uL Sodium (137-145) mmol/L BUN (9-20) mg/dL Creatinine (0.66-1.25) mg/dL Glucose (74-99) mg/dL POC Glucose (mg/dL) 485 H 543 H 509 H (75-99) mg/dL Calcium (8.4-10.2) mg/dL Phosphorus (2.5-4.5) mg/dL 12/01/17 12/01/17 12/01/17 Range/Units 16:15 16:46 17:49 WBC (3.8-10.6) k/uL RBC (4.30-5.90) m/uL Hgb (13.0-17.5) gm/dL Hct (39.0-53.0) % Neutrophils # (1.3-7.7) k/uL Lymphocytes # (1.0-4.8) k/uL Monocytes # (0-1.0) k/uL Sodium (137-145) mmol/L BUN (9-20) mg/dL Creatinine (0.66-1.25) mg/dL Glucose (74-99) mg/dL POC Glucose (mg/dL) 495 H 453 H 328 H (75-99) mg/dL Calcium (8.4-10.2) mg/dL Phosphorus (2.5-4.5) mg/dL 12/01/17 12/01/17 12/01/17 Range/Units 18:17 18:49 20:26 WBC (3.8-10.6) k/uL RBC (4.30-5.90) m/uL Hgb (13.0-17.5) gm/dL Hct (39.0-53.0) % Neutrophils # (1.3-7.7) k/uL Lymphocytes # (1.0-4.8) k/uL Monocytes # (0-1.0) k/uL Sodium (137-145) mmol/L BUN (9-20) mg/dL Creatinine (0.66-1.25) mg/dL Glucose (74-99) mg/dL POC Glucose (mg/dL) 268 H 218 H 208 H (75-99) mg/dL Calcium (8.4-10.2) mg/dL Phosphorus (2.5-4.5) mg/dL 12/01/17 12/01/17 12/02/17 Range/Units 22:40 23:32 01:55 WBC (3.8-10.6) k/uL RBC (4.30-5.90) m/uL Hgb (13.0-17.5) gm/dL Hct (39.0-53.0) % Neutrophils # (1.3-7.7) k/uL Lymphocytes # (1.0-4.8) k/uL Monocytes # (0-1.0) k/uL Sodium (137-145) mmol/L BUN (9-20) mg/dL Creatinine (0.66-1.25) mg/dL Glucose (74-99) mg/dL POC Glucose (mg/dL) 120 H 143 H 181 H (75-99) mg/dL Calcium (8.4-10.2) mg/dL Phosphorus (2.5-4.5) mg/dL 12/02/17 12/02/17 12/02/17 Range/Units 04:13 06:09 07:04 WBC (3.8-10.6) k/uL RBC (4.30-5.90) m/uL Hgb (13.0-17.5) gm/dL Hct (39.0-53.0) % Neutrophils # (1.3-7.7) k/uL Lymphocytes # (1.0-4.8) k/uL Monocytes # (0-1.0) k/uL Sodium (137-145) mmol/L BUN (9-20) mg/dL Creatinine (0.66-1.25) mg/dL Glucose (74-99) mg/dL POC Glucose (mg/dL) 139 H 171 H 178 H (75-99) mg/dL Calcium (8.4-10.2) mg/dL Phosphorus (2.5-4.5) mg/dL 12/02/17 12/02/17 12/02/17 Range/Units 07:27 07:27 08:44 WBC 16.9 H (3.8-10.6) k/uL RBC 3.32 L (4.30-5.90) m/uL Hgb 8.9 L (13.0-17.5) gm/dL Hct 27.2 L (39.0-53.0) % Neutrophils # 15.2 H (1.3-7.7) k/uL Lymphocytes # 0.5 L (1.0-4.8) k/uL Monocytes # 1.1 H (0-1.0) k/uL Sodium 134 L (137-145) mmol/L BUN 64 H (9-20) mg/dL Creatinine 8.77 H* (0.66-1.25) mg/dL Glucose 157 H (74-99) mg/dL POC Glucose (mg/dL) 166 H (75-99) mg/dL Calcium 7.8 L (8.4-10.2) mg/dL Phosphorus 6.2 H (2.5-4.5) mg/dL 12/02/17 Range/Units 10:45 WBC (3.8-10.6) k/uL RBC (4.30-5.90) m/uL Hgb (13.0-17.5) gm/dL Hct (39.0-53.0) % Neutrophils # (1.3-7.7) k/uL Lymphocytes # (1.0-4.8) k/uL Monocytes # (0-1.0) k/uL Sodium (137-145) mmol/L BUN (9-20) mg/dL Creatinine (0.66-1.25) mg/dL Glucose (74-99) mg/dL POC Glucose (mg/dL) 151 H (75-99) mg/dL Calcium (8.4-10.2) mg/dL Phosphorus (2.5-4.5) mg/dL Assessment and Plan Plan: 1. Acute kidney injury with profound hyperkalemia causing profound weakness and EKG changes. Initial potassium 9.0, creatinine 15.61 and bun 109. Acute kidney injury secondary to ATN secondary to intravascular volume depletion from diarrhea, JEANMARIE inhibitor and NSAIDs. No evidence of hydronephrosis on ultrasound. Patient had emergent hemodialysis on admission. And is currently hemodialysis dependent. Nephrology workup in progress. Patient initially scheduled for a kidney biopsy which is currently on hold due to patient being on aspirin. Aspirin has been discontinued per nephrology. Continue to hold JEANMARIE inhibitor, metformin and nephrotoxic medications. c-ANCA is positive nephrology is started IV Solu-Medrol 1 g daily 3 days and then will switch over to oral prednisone. Today is day 2 of the IV Solu-Medrol. We'll await their further recommendations. Patient scheduled for hemodialysis today. 2. Severe Hyperkalemia. Secondary to JEANMARIE inhibitor, acute kidney injury and metabolic acidosis. Improved post dialysis. Initial potassium 9.0. Patient is hyperkalemic at 5.4. Should correct with hemodialysis 3. Elevated troponin. Troponin 0.059. EKG completed in emergency room showing wide QRS rhythm with occasional premature ventricular complexes. Cardiology service consulted. 2-D echo completed showing an EF of 55-60%. Per cardiology services continue with conservative medical approach with mild abnormal cardiac enzymes. Continue Lopressor 4. History of coronary artery disease 5. History of diabetes mellitus type 2. Patient having hyperglycemia with blood sugars in the 200s to 400s due to the IV steroids. We'll place him on insulin drip while on steroids. 6. History of essential hypertension. Elevated blood pressure 174/77. Continue with current medications hydralazine and metoprolol 7. History of hyperlipidemia 8. History of prostate cancer. Status post prostatectomy 9. Status post aortic valve replacement for aortic stenosis 10. History of hypothyroidism. Synthroid resumed 11. Iron deficiency anemia. Patient has received IV iron 3 doses per nephrology. 12. Metabolic acidosis secondary to acute kidney injury as well as metformin. Now improved 13. Hyperphosphatemia secondary to acute kidney injury. 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 with dialysis at time of discharge. Patient currently needing 3 days of IV Solu-Medrol prior to discharge
[2017-12-02 13:01] LABS: Glucose,Whole Blood 101 mg/dL (75-99)
[2017-12-02 14:04] LABS: Glucose,Whole Blood 230 mg/dL (75-99)
[2017-12-02 16:36] LABS: Glucose,Whole Blood 334 mg/dL (75-99)
[2017-12-02] MEDS: CARVEDILOL 12.5 MG TAB PO SCH (18:10)
[2017-12-02 18:29] LABS: Glucose,Whole Blood 270 mg/dL (75-99)
[2017-12-02] MEDS: LEVOTHYROXINE 25 MCG TAB PO SCH (20:01)
[2017-12-02 20:21] LABS: Glucose,Whole Blood 277 mg/dL (75-99)
[2017-12-02 22:11] LABS: Glucose,Whole Blood 245 mg/dL (75-99)
[2017-12-03 00:19] LABS: Glucose,Whole Blood 187 mg/dL (75-99)
[2017-12-03 04:17] LABS: Glucose,Whole Blood 138 mg/dL (75-99)
[2017-12-03 04:17] LABS: Glucose,Whole Blood 160 mg/dL (75-99)
[2017-12-03 05:56] LABS: Glucose,Whole Blood 177 mg/dL (75-99)
[2017-12-03 07:15] LABS: Basophils % (A) 0 %; Eosinophils % (A) 0 %; HGB 8.8 gm/dL (13.0-17.5); Lymphocytes # (A) 0.5 k/uL (1.0-4.8); Lymphocytes % (A) 4 %; MCH 26.8 pg (25.0-35.0); MCHC 32.4 g/dL (31.0-37.0); MCV 82.7 fL (80.0-100.0); Mean Platelet Volume 7.1; Monocytes # (A) 0.7 k/uL (0-1.0); Monocytes % (A) 6 %; Neutrophils # (A) 10.7 k/uL (1.3-7.7); Neutrophils % (A) 89 %; Platelet Count 337 k/uL (150-450); RBC 3.27 m/uL (4.30-5.90)
[2017-12-03 07:29] LABS: Calcium 7.7 mg/dL (8.4-10.2); Phosphorus 7.5 mg/dL (2.5-4.5); Potassium 5.5 mmol/L (3.5-5.1); Total Bilirubin 0.4 mg/dL (0.2-1.3); Total Protein 5.6 g/dL (6.3-8.2)
[2017-12-03 08:30] LABS: Glucose,Whole Blood 152 mg/dL (75-99)
[2017-12-03] MEDS: NIFEdipine XL 90 MG TAB.ER.24 PO SCH (08:48)
[2017-12-03] MEDS: predniSONE 20 MG TAB PO SCH (08:48)
[2017-12-03] MEDS: PANTOPRAZOLE 40 MG TABLET PO SCH (08:48)
[2017-12-03] MEDS: CARVEDILOL 12.5 MG TAB PO SCH ×2 (08:48→17:08)
[2017-12-03] MEDS: INSULIN ASPART 100 UNIT/ML 1 ML 10 ML VIAL SQ SCH ×3 (08:48→17:55)
[2017-12-03] MEDS: HEPARIN SODIUM,PORCINE 5,000 UNIT/ML 1 ML VIAL SQ SCH ×2 (08:48→20:35)
[2017-12-03] MEDS: CALCIUM ACETATE 667 MG CAP PO SCH ×3 (08:49→17:08)
--- NOTE | 2017-12-03 09:45 | P.PN ---
Subjective Progress Note Date: 12/03/17 Principal diagnosis: Acute kidney injury Patient seen and examined for the follow-up of acute kidney injury. He was admitted with a creatinine of 15 and a potassium of 9. Currently hemodialysis dependent via right jugular permacath. Still oliguric. 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 No nausea vomiting diarrhea. Awaiting for renal biopsy on Monday Objective - Vital Signs Vital signs: Vital Signs Temp 98.5 F 12/03/17 06:47 Pulse 65 12/03/17 06:47 Resp 16 12/03/17 06:47 BP 145/69 12/03/17 06:47 Pulse Ox 96 12/03/17 07:45 Intake & Output 12/02/17 12/03/17 12/03/17 18:59 06:59 18:59 Intake Total 619.808 656.434 9.383 Balance 619.808 656.434 9.383 Weight 126 kg 126 kg 125 kg Intake: Intake, IV Titration 69.808 66.434 9.383 Amount Insulin Regular 100 unit 69.808 66.434 9.383 In Sodium Chloride 0.9% 100 ml @ Titrate IV .Q0M [facility] Rx#:[id number] Oral 250 590 Other 300 Other: Voiding Method Indwelling Catheter Indwelling Catheter Indwelling Catheter - Exam Lying in bed no acute distress S1-S2 heard Lungs clear Right jugular permacath 1+ edema - Labs CBC & Chem 7: 12/03/17 06:39 12/03/17 06:39 Labs: Abnormal Lab Results - Last 24 Hours (Table) 12/02/17 12/02/17 12/02/17 Range/Units 08:44 10:45 12:40 WBC (3.8-10.6) k/uL RBC (4.30-5.90) m/uL Hgb (13.0-17.5) gm/dL Hct (39.0-53.0) % Neutrophils # (1.3-7.7) k/uL Lymphocytes # (1.0-4.8) k/uL Sodium (137-145) mmol/L Potassium (3.5-5.1) mmol/L Chloride (98-107) mmol/L Carbon Dioxide (22-30) mmol/L BUN (9-20) mg/dL Creatinine (0.66-1.25) mg/dL Glucose (74-99) mg/dL POC Glucose (mg/dL) 166 H 151 H 101 H (75-99) mg/dL Calcium (8.4-10.2) mg/dL Phosphorus (2.5-4.5) mg/dL AST (17-59) U/L Total Protein (6.3-8.2) g/dL Albumin (3.5-5.0) g/dL 12/02/17 12/02/17 12/02/17 Range/Units 13:43 16:06 18:09 WBC (3.8-10.6) k/uL RBC (4.30-5.90) m/uL Hgb (13.0-17.5) gm/dL Hct (39.0-53.0) % Neutrophils # (1.3-7.7) k/uL Lymphocytes # (1.0-4.8) k/uL Sodium (137-145) mmol/L Potassium (3.5-5.1) mmol/L Chloride (98-107) mmol/L Carbon Dioxide (22-30) mmol/L BUN (9-20) mg/dL Creatinine (0.66-1.25) mg/dL Glucose (74-99) mg/dL POC Glucose (mg/dL) 230 H 334 H 270 H (75-99) mg/dL Calcium (8.4-10.2) mg/dL Phosphorus (2.5-4.5) mg/dL AST (17-59) U/L Total Protein (6.3-8.2) g/dL Albumin (3.5-5.0) g/dL 12/02/17 12/02/17 12/02/17 Range/Units 19:59 21:59 23:57 WBC (3.8-10.6) k/uL RBC (4.30-5.90) m/uL Hgb (13.0-17.5) gm/dL Hct (39.0-53.0) % Neutrophils # (1.3-7.7) k/uL Lymphocytes # (1.0-4.8) k/uL Sodium (137-145) mmol/L Potassium (3.5-5.1) mmol/L Chloride (98-107) mmol/L Carbon Dioxide (22-30) mmol/L BUN (9-20) mg/dL Creatinine (0.66-1.25) mg/dL Glucose (74-99) mg/dL POC Glucose (mg/dL) 277 H 245 H 187 H (75-99) mg/dL Calcium (8.4-10.2) mg/dL Phosphorus (2.5-4.5) mg/dL AST (17-59) U/L Total Protein (6.3-8.2) g/dL Albumin (3.5-5.0) g/dL 12/03/17 12/03/17 12/03/17 Range/Units 01:53 03:56 05:55 WBC (3.8-10.6) k/uL RBC (4.30-5.90) m/uL Hgb (13.0-17.5) gm/dL Hct (39.0-53.0) % Neutrophils # (1.3-7.7) k/uL Lymphocytes # (1.0-4.8) k/uL Sodium (137-145) mmol/L Potassium (3.5-5.1) mmol/L Chloride (98-107) mmol/L Carbon Dioxide (22-30) mmol/L BUN (9-20) mg/dL Creatinine (0.66-1.25) mg/dL Glucose (74-99) mg/dL POC Glucose (mg/dL) 160 H 138 H 177 H (75-99) mg/dL Calcium (8.4-10.2) mg/dL Phosphorus (2.5-4.5) mg/dL AST (17-59) U/L Total Protein (6.3-8.2) g/dL Albumin (3.5-5.0) g/dL 12/03/17 12/03/17 12/03/17 Range/Units 06:39 06:39 07:59 WBC 12.0 H (3.8-10.6) k/uL RBC 3.27 L (4.30-5.90) m/uL Hgb 8.8 L (13.0-17.5) gm/dL Hct 27.0 L (39.0-53.0) % Neutrophils # 10.7 H (1.3-7.7) k/uL Lymphocytes # 0.5 L (1.0-4.8) k/uL Sodium 133 L (137-145) mmol/L Potassium 5.5 H (3.5-5.1) mmol/L Chloride 97 L (98-107) mmol/L Carbon Dioxide 20 L (22-30) mmol/L BUN 95 H (9-20) mg/dL Creatinine 10.45 H* (0.66-1.25) mg/dL Glucose 160 H (74-99) mg/dL POC Glucose (mg/dL) 152 H (75-99) mg/dL Calcium 7.7 L (8.4-10.2) mg/dL Phosphorus 7.5 H (2.5-4.5) mg/dL AST 16 L (17-59) U/L Total Protein 5.6 L (6.3-8.2) g/dL Albumin 3.0 L (3.5-5.0) g/dL Assessment and Plan Assessment: #1 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 Currently on hemodialysis via right jugular permacath. #2 mild hyperkalemia, had dialysis yesterday. Treat medically if it's more than 6.0 #3 metabolic acidosis secondary to acute kidney injury #4 edema #5 hypertension #6 anemia multifactorial #7 diabetes on insulin Plan: #1 had hemodialysis yesterday plan again on Monday. #2 on Solu-Medrol 1 g 3 doses. Start prednisone 60 mg daily from today. #3 renal biopsy on Monday. Based on renal biopsy plan immunosuppressants #4 Hydralazine is also notorious to cause drug-induced vasculitis. Changed to Procardia and metoprolol to Coreg for better blood pressure control. Goal blood pressure is less than 140/90. #5 avoid nephrotoxic agents and hypotensive episodes.
[2017-12-03 10:24] LABS: Glucose,Whole Blood 265 mg/dL (75-99)
[2017-12-03 12:19] LABS: Glucose,Whole Blood 242 mg/dL (75-99)
[2017-12-03 14:34] LABS: Glucose,Whole Blood 274 mg/dL (75-99)
--- NOTE | 2017-12-03 14:56 | P.PN ---
Subjective Progress Note Date: 12/03/17 This is a 82-year-old male patient who presented to the emergency room with complaints of increased weakness that has been occurring for the past 3-4 days. She has a known past medical history of prostate cancer, diabetes mellitus, hyperlipidemia and essential hypertension. Patient states that over the past week he's notes he has not been able to walk as far as he used to be able to. Chest x-ray completed showing rotated expiratory exam. Correlate to exclude pulmonary venous hypertension and interstitial edema. Initial labs showing creatinine of 15.61, bun 109 and potassium 9.0. Nephrology consulted immediately. Hemodialysis access per vascular disease and patient received hemodialysis in the emergency room last night. Patient is currently in the intensive care unit. Potassium now 5.8. Bun 82 and creatinine 11.24. Per nursing staff patient to receive hemodialysis again today per nephrology services. Troponin also elevated at 0.059. CT completed showing wide QRS rhythm and occasional premature ventricular complexes Cardiology services following. Per cardiology patient will be started on aspirin and small dose of metoprolol 12.5. 2-D echo will be ordered. Ultrasound of bladder and kidneys completed showing high no hydronephrosis. 3.5 cm cyst on the right. Dr. Do consulted for critical care consult. Patient currently on bicarb drip along with Cleveprex for blood pressure control. At this time patient states he is feeling improved. Patient denies chest pain or shortness of breath. Patient denies nausea vomiting or diarrhea. Patient denies any urinary burning or frequency. On 11/24/2017 patient is currently resting in bed. Creatinine 10.28 and bun 63. Potassium improving to 5.4. Per nursing staff patient to receive dialysis again today. At this time patient states he's feeling much improved. Patient denies chest pain or shortness breath. Patient denies nausea vomiting or diarrhea. Patient denies any urinary symptoms On 11/26/2017 patient is currently resting in bed. Creatinine remains elevated at 8.54 and bun 45. Potassium 5.0. Patient states he feels improved. at this time patient denies chest pains. Denies nausea. Denies urinary burning or frequency On 11/27/2017 patient is currently resting in bed. Patient denies any complaints at this time. Creatinine increasing to 10.26 and bun 57. Patient did not receive dialysis yesterday. Awaiting nephrology input in regards to hemodialysis today. This time patient denies chest pain or shortness of breath. Patient denies nausea vomiting or diarrhea. Patient denies any urinary burning or frequency 11/28/2017 patient was transferred out of the ICU yesterday. He is currently hemodialysis dependent. He is scheduled for hemodialysis tomorrow. Femoral catheter was not working well yesterday and this morning he was removed and he had a permacath placed. Patient remains oliguric. Nephrology is ordered another dose of IV Lasix. Small amount of urine is bloody in Hoang bag. Patient denies any chest pain or shortness of breath. Denies any nausea or vomiting. Reports having a regular bowel movement. On 11/29/2017 patient is currently resting comfortably in chair. Creatinine 11.06 and bun 68. Patient planning to get hemodialysis today per nephrology. This time patient denies chest pain or shortness breath. Patient denies nausea vomiting or diarrhea. Hoang catheter remains in place with minimum bloody urine output 11/30/2017 patient is scheduled for hemodialysis tomorrow. 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 Nephrology is started patient on IV Solu-Medrol 1 g daily for 3 days. Patient's urine output is still very low. Denies any nausea or vomiting. Denies any chest pain or shortness of breath. Reports having bowel movements. 12/01/2017 patient is scheduled for hemodialysis today. He remains on IV Solu- Medrol for the positive CANCA. Still having very low urine output. Patient having elevated blood sugars secondary to steroids. Blood sugars are in the 300s to 400 this morning. He'll be placed on an insulin drip. Patient denies any chest pain or shortness of breath. Denies any nausea or vomiting. Reports having bowel movements. On 12/02/2017 patient is alert and oriented 3 in no apparent distress he denies any chest pain or shortness of breath there is no fever or chills no headache or dizziness no cough no palpitation no nausea or vomiting no abdominal pain and no urinary symptoms. Patient is maintained on IV Solu- Medrol 1 g daily for 3 days he will be switched to oral prednisone 60 mg daily subsequently. He has oliguric acute renal failure with positive C-ANCA he is scheduled for renal biopsy on Monday. Currently maintained on hemodialysis. On 12/03/2017 patient was seen and examined on the medical floor he is alert and oriented 3 he denies any symptoms at this time, there is no fever or chills no headache or dizziness patient denies any chest pain no shortness of breath no cough no palpitation no nausea or vomiting no abdominal pain no diarrhea, patient has a Hoang catheter in and has a minimal bloody urine output. Objective - Vital Signs Vital signs: Vital Signs Temp 98.5 F 12/03/17 06:47 Pulse 65 12/03/17 06:47 Resp 16 12/03/17 06:47 BP 145/69 12/03/17 06:47 Pulse Ox 96 12/03/17 07:45 Intake & Output 12/02/17 12/03/17 12/03/17 18:59 06:59 18:59 Intake Total 619.808 656.434 639.874 Balance 619.808 656.434 639.874 Weight 126 kg 126 kg 125 kg Intake: Intake, IV Titration 69.808 66.434 49.874 Amount Insulin Regular 100 unit 69.808 66.434 49.874 In Sodium Chloride 0.9% 100 ml @ Titrate IV .Q0M ON LICENSE OF [facility] Rx#:[id number] Oral 250 590 590 Other 300 Other: Voiding Method Indwelling Catheter Indwelling Catheter Indwelling Catheter - Exam Head normocephalic and atraumatic Neck supple no JVD no goiter Lungs clear to auscultation bilaterally no wheezing or crackles Heart regular rate and rhythm S1-S2, no rub or gallop Abdomen is soft nontender nondistended positive bowel sounds no hepatosplenomegaly Extremities no edema no cyanosis or clubbing Neuro alert and orientated to 3 with no gross focal deficit - Labs CBC & Chem 7: 12/03/17 06:39 12/03/17 06:39 Labs: Abnormal Lab Results - Last 24 Hours (Table) 12/02/17 12/02/17 12/02/17 Range/Units 16:06 18:09 19:59 WBC (3.8-10.6) k/uL RBC (4.30-5.90) m/uL Hgb (13.0-17.5) gm/dL Hct (39.0-53.0) % Neutrophils # (1.3-7.7) k/uL Lymphocytes # (1.0-4.8) k/uL Sodium (137-145) mmol/L Potassium (3.5-5.1) mmol/L Chloride (98-107) mmol/L Carbon Dioxide (22-30) mmol/L BUN (9-20) mg/dL Creatinine (0.66-1.25) mg/dL Glucose (74-99) mg/dL POC Glucose (mg/dL) 334 H 270 H 277 H (75-99) mg/dL Calcium (8.4-10.2) mg/dL Phosphorus (2.5-4.5) mg/dL AST (17-59) U/L Total Protein (6.3-8.2) g/dL Albumin (3.5-5.0) g/dL 12/02/17 12/02/17 12/03/17 Range/Units 21:59 23:57 01:53 WBC (3.8-10.6) k/uL RBC (4.30-5.90) m/uL Hgb (13.0-17.5) gm/dL Hct (39.0-53.0) % Neutrophils # (1.3-7.7) k/uL Lymphocytes # (1.0-4.8) k/uL Sodium (137-145) mmol/L Potassium (3.5-5.1) mmol/L Chloride (98-107) mmol/L Carbon Dioxide (22-30) mmol/L BUN (9-20) mg/dL Creatinine (0.66-1.25) mg/dL Glucose (74-99) mg/dL POC Glucose (mg/dL) 245 H 187 H 160 H (75-99) mg/dL Calcium (8.4-10.2) mg/dL Phosphorus (2.5-4.5) mg/dL AST (17-59) U/L Total Protein (6.3-8.2) g/dL Albumin (3.5-5.0) g/dL 12/03/17 12/03/17 12/03/17 Range/Units 03:56 05:55 06:39 WBC (3.8-10.6) k/uL RBC (4.30-5.90) m/uL Hgb (13.0-17.5) gm/dL Hct (39.0-53.0) % Neutrophils # (1.3-7.7) k/uL Lymphocytes # (1.0-4.8) k/uL Sodium 133 L (137-145) mmol/L Potassium 5.5 H (3.5-5.1) mmol/L Chloride 97 L (98-107) mmol/L Carbon Dioxide 20 L (22-30) mmol/L BUN 95 H (9-20) mg/dL Creatinine 10.45 H* (0.66-1.25) mg/dL Glucose 160 H (74-99) mg/dL POC Glucose (mg/dL) 138 H 177 H (75-99) mg/dL Calcium 7.7 L (8.4-10.2) mg/dL Phosphorus 7.5 H (2.5-4.5) mg/dL AST 16 L (17-59) U/L Total Protein 5.6 L (6.3-8.2) g/dL Albumin 3.0 L (3.5-5.0) g/dL 12/03/17 12/03/17 12/03/17 Range/Units 06:39 07:59 10:02 WBC 12.0 H (3.8-10.6) k/uL RBC 3.27 L (4.30-5.90) m/uL Hgb 8.8 L (13.0-17.5) gm/dL Hct 27.0 L (39.0-53.0) % Neutrophils # 10.7 H (1.3-7.7) k/uL Lymphocytes # 0.5 L (1.0-4.8) k/uL Sodium (137-145) mmol/L Potassium (3.5-5.1) mmol/L Chloride (98-107) mmol/L Carbon Dioxide (22-30) mmol/L BUN (9-20) mg/dL Creatinine (0.66-1.25) mg/dL Glucose (74-99) mg/dL POC Glucose (mg/dL) 152 H 265 H (75-99) mg/dL Calcium (8.4-10.2) mg/dL Phosphorus (2.5-4.5) mg/dL AST (17-59) U/L Total Protein (6.3-8.2) g/dL Albumin (3.5-5.0) g/dL 12/03/17 12/03/17 Range/Units 11:59 14:12 WBC (3.8-10.6) k/uL RBC (4.30-5.90) m/uL Hgb (13.0-17.5) gm/dL Hct (39.0-53.0) % Neutrophils # (1.3-7.7) k/uL Lymphocytes # (1.0-4.8) k/uL Sodium (137-145) mmol/L Potassium (3.5-5.1) mmol/L Chloride (98-107) mmol/L Carbon Dioxide (22-30) mmol/L BUN (9-20) mg/dL Creatinine (0.66-1.25) mg/dL Glucose (74-99) mg/dL POC Glucose (mg/dL) 242 H 274 H (75-99) mg/dL Calcium (8.4-10.2) mg/dL Phosphorus (2.5-4.5) mg/dL AST (17-59) U/L Total Protein (6.3-8.2) g/dL Albumin (3.5-5.0) g/dL Assessment and Plan Plan: 1. Acute kidney injury with profound hyperkalemia causing profound weakness and EKG changes. Initial potassium 9.0, creatinine 15.61 and bun 109. Acute kidney injury secondary to ATN secondary to intravascular volume depletion from diarrhea, JEANMARIE inhibitor and NSAIDs. No evidence of hydronephrosis on ultrasound. Patient had emergent hemodialysis on admission. And is currently hemodialysis dependent. Nephrology workup in progress. Patient initially scheduled for a kidney biopsy which is currently on hold due to patient being on aspirin. Aspirin has been discontinued per nephrology. Continue to hold JEANMARIE inhibitor, metformin and nephrotoxic medications. c-ANCA is positive nephrology is started IV Solu-Medrol 1 g daily 3 days and then will switch over to oral prednisone. Today is day 2 of the IV Solu-Medrol. We'll await their further recommendations. Patient scheduled for hemodialysis today. 2. Severe Hyperkalemia. Secondary to JEANMARIE inhibitor, acute kidney injury and metabolic acidosis. Improved post dialysis. Initial potassium 9.0. Patient is hyperkalemic at 5.4. Should correct with hemodialysis 3. Elevated troponin. Troponin 0.059. EKG completed in emergency room showing wide QRS rhythm with occasional premature ventricular complexes. Cardiology service consulted. 2-D echo completed showing an EF of 55-60%. Per cardiology services continue with conservative medical approach with mild abnormal cardiac enzymes. Continue Lopressor 4. History of coronary artery disease 5. History of diabetes mellitus type 2. Patient having hyperglycemia with blood sugars in the 200s to 400s due to the IV steroids. We'll place him on insulin drip while on steroids. 6. History of essential hypertension. Elevated blood pressure 174/77. Continue with current medications hydralazine and metoprolol 7. History of hyperlipidemia 8. History of prostate cancer. Status post prostatectomy 9. Status post aortic valve replacement for aortic stenosis 10. History of hypothyroidism. Synthroid resumed 11. Iron deficiency anemia. Patient has received IV iron 3 doses per nephrology. 12. Metabolic acidosis secondary to acute kidney injury as well as metformin. Now improved 13. Hyperphosphatemia secondary to acute kidney injury. 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 Patient currently needing 3 days of IV Solu-Medrol prior to discharge Patient is scheduled for kidney biopsy tomorrow continue with current management at this time
[2017-12-03 16:27] LABS: Glucose,Whole Blood 270 mg/dL (75-99)
[2017-12-03 18:36] LABS: Glucose,Whole Blood 203 mg/dL (75-99)
[2017-12-03 20:13] LABS: Glucose,Whole Blood 189 mg/dL (75-99)
[2017-12-03] MEDS: INSULIN REGULAR 100 UNIT in SODIUM CHLORIDE 0.9% 100 ML IV SCH (20:35)
[2017-12-03] MEDS: LEVOTHYROXINE 25 MCG TAB PO SCH (20:35)
[2017-12-03 22:12] LABS: Glucose,Whole Blood 148 mg/dL (75-99)
[2017-12-04 00:05] LABS: Glucose,Whole Blood 150 mg/dL (75-99)
[2017-12-04 02:13] LABS: Glucose,Whole Blood 127 mg/dL (75-99)
[2017-12-04 03:18] LABS: Glucose,Whole Blood 152 mg/dL (75-99)
[2017-12-04 04:51] LABS: Glucose,Whole Blood 165 mg/dL (75-99)
[2017-12-04 06:59] LABS: Glucose,Whole Blood 127 mg/dL (75-99)
[2017-12-04] MEDS: CARVEDILOL 12.5 MG TAB PO SCH ×2 (07:21→17:46)
[2017-12-04] MEDS: PANTOPRAZOLE 40 MG TABLET PO SCH (07:21)
[2017-12-04] MEDS: CALCIUM ACETATE 667 MG CAP PO SCH ×3 (07:21→17:46)
[2017-12-04] MEDS: INSULIN ASPART 100 UNIT/ML 1 ML 10 ML VIAL SQ SCH ×3 (07:34→16:52)
[2017-12-04] MEDS: HEPARIN SODIUM,PORCINE 5,000 UNIT/ML 1 ML VIAL SQ SCH ×2 (07:35→21:10)
[2017-12-04] MEDS: NIFEdipine XL 90 MG TAB.ER.24 PO SCH (08:40)
[2017-12-04] MEDS: predniSONE 20 MG TAB PO SCH (08:40)
--- NOTE | 2017-12-04 08:48 | P.PN ---
Subjective Patient is seen in follow-up for acute kidney injury. Creatinine was over 15 on admission and potassium level was 9. He is currently hemodialysis dependent. Patient is awake and alert. Denies chest pain or shortness of breath. Oral intake is good. Patient remains oliguric. Patient has a permacath in place. Creatinine June 2014 and July 2016 was 1.1. Patient is noted to be c-ANCA positive and is scheduled for kidney biopsy today. On oral prednisone. Vital signs are stable. General: The patient appeared well nourished and normally developed. HEENT: Head exam is unremarkable. Neck is without jugular venous distension. LUNGS: Breath sounds decreased. HEART: Rate and Rhythm are regular. First and second heart sounds normal. No murmurs, rubs or gallops. ABDOMEN: Abdominal exam reveals normal bowel sounds. Non-tender and non- distended. No evidence of peritonitis. EXTREMITITES: No clubbing, cyanosis, or edema. Objective - Vital Signs Vital signs: Vital Signs Temp 97.5 F L 12/04/17 06:59 Pulse 61 12/04/17 06:59 Resp 16 12/04/17 06:59 BP 116/57 12/04/17 06:59 Pulse Ox 95 12/04/17 06:59 Intake & Output 12/03/17 12/04/17 12/04/17 18:59 06:59 18:59 Intake Total 673.025 25.234 8.147 Balance 673.025 25.234 8.147 Weight 125 kg Intake: Intake, IV Titration 83.025 25.234 8.147 Amount Insulin Regular 100 unit 83.025 In Sodium Chloride 0.9% 100 ml @ Titrate IV .Q0M [facility] Rx#:[id number] Insulin Regular 100 unit 25.234 8.147 In Sodium Chloride 0.9% 100 ml @ Titrate IV .Q0M [facility] Rx#:[id number] Oral 590 Other: Voiding Method Indwelling Catheter Indwelling Catheter # Voids 3 - Labs CBC & Chem 7: 12/03/17 06:39 12/03/17 06:39 Labs: Abnormal Lab Results - Last 24 Hours (Table) 12/03/17 12/03/17 12/03/17 Range/Units 10:02 11:59 14:12 POC Glucose (mg/dL) 265 H 242 H 274 H (75-99) mg/dL 12/03/17 12/03/17 12/03/17 Range/Units 15:57 18:05 20:01 POC Glucose (mg/dL) 270 H 203 H 189 H (75-99) mg/dL 12/03/17 12/03/17 12/04/17 Range/Units 21:59 23:54 02:00 POC Glucose (mg/dL) 148 H 150 H 127 H (75-99) mg/dL 12/04/17 12/04/17 12/04/17 Range/Units 03:06 04:49 06:46 POC Glucose (mg/dL) 152 H 165 H 127 H (75-99) mg/dL Assessment and Plan Plan: Assessment: 1. 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 Creatinine 15.6 on admission. Baseline creatinine is near 1. No evidence of hydronephrosis noted on renal ultrasound. Currently hemodialysis dependent. He is noted to have nephrotic range proteinuria. Urine eosinophils negative. MANUELITO, double-stranded DNA antibody, Hepatitis panel negative. SPEP negative. c- ANCA positive. Anti-GBM Ab negative. 2. Severe hyperkalemia secondary to ramipril, acute kidney injury and metabolic acidosis. Improved postdialysis. 3. Metabolic acidosis secondary to acute kidney injury. Patient was also on metformin. 4. Insulin-dependent diabetes mellitus. 5. Pyuria. Urine culture negative. 6. Benign hypertension. Partially due to steroids. Controlled. 7. Hyperphosphatemia secondary to acute kidney injury. 8. Anemia. Iron deficiency noted. Status post 3 doses of IV iron. 9. Volume overload. Improved with ultrafiltration. Plan: Hemodialysis today. Scheduled for kidney biopsy today. I will give him DDAVP one hour prior to kidney biopsy. Avoid nephrotoxins. Continue to hold JEANMARIE inhibitor and metformin for now. Maintain current antihypertensives. Continue to monitor renal function and urine output closely. Continue to assess on a day-to-day basis for need for renal replacement therapy. Maintain PhosLo with meals. safety and health manager on board to help facilitate outpatient hemodialysis set up. Once diagnosis confirmed with biopsy, will start either cytoxan or rituximab for induction therapy. Will also benefit from plasma exchange. He is status post 3 doses of IV Solu-Medrol. Maintain prednisone 60 mg daily.
[2017-12-04 09:00] LABS: Mean Platelet Volume 7.5; Platelet Count 330 k/uL (150-450)
[2017-12-04 09:07] LABS: INR 1.1 (<1.2); Prothrombin Time 11.1 sec (9.0-12.0)
[2017-12-04 09:09] LABS: Glucose,Whole Blood 141 mg/dL (75-99)
[2017-12-04 09:19] LABS: Calcium 7.2 mg/dL (8.4-10.2); Phosphorus 8.7 mg/dL (2.5-4.5); Potassium 5.4 mmol/L (3.5-5.1)
--- NOTE | 2017-12-04 10:14 | P.PN ---
Subjective Progress Note Date: 12/04/17 This is a 82-year-old male patient who presented to the emergency room with complaints of increased weakness that has been occurring for the past 3-4 days. She has a known past medical history of prostate cancer, diabetes mellitus, hyperlipidemia and essential hypertension. Patient states that over the past week he's notes he has not been able to walk as far as he used to be able to. Chest x-ray completed showing rotated expiratory exam. Correlate to exclude pulmonary venous hypertension and interstitial edema. Initial labs showing creatinine of 15.61, bun 109 and potassium 9.0. Nephrology consulted immediately. Hemodialysis access per vascular disease and patient received hemodialysis in the emergency room last night. Patient is currently in the intensive care unit. Potassium now 5.8. Bun 82 and creatinine 11.24. Per nursing staff patient to receive hemodialysis again today per nephrology services. Troponin also elevated at 0.059. CT completed showing wide QRS rhythm and occasional premature ventricular complexes Cardiology services following. Per cardiology patient will be started on aspirin and small dose of metoprolol 12.5. 2-D echo will be ordered. Ultrasound of bladder and kidneys completed showing high no hydronephrosis. 3.5 cm cyst on the right. Dr. Do consulted for critical care consult. Patient currently on bicarb drip along with Cleveprex for blood pressure control. At this time patient states he is feeling improved. Patient denies chest pain or shortness of breath. Patient denies nausea vomiting or diarrhea. Patient denies any urinary burning or frequency. On 11/24/2017 patient is currently resting in bed. Creatinine 10.28 and bun 63. Potassium improving to 5.4. Per nursing staff patient to receive dialysis again today. At this time patient states he's feeling much improved. Patient denies chest pain or shortness breath. Patient denies nausea vomiting or diarrhea. Patient denies any urinary symptoms On 11/26/2017 patient is currently resting in bed. Creatinine remains elevated at 8.54 and bun 45. Potassium 5.0. Patient states he feels improved. at this time patient denies chest pains. Denies nausea. Denies urinary burning or frequency On 11/27/2017 patient is currently resting in bed. Patient denies any complaints at this time. Creatinine increasing to 10.26 and bun 57. Patient did not receive dialysis yesterday. Awaiting nephrology input in regards to hemodialysis today. This time patient denies chest pain or shortness of breath. Patient denies nausea vomiting or diarrhea. Patient denies any urinary burning or frequency 11/28/2017 patient was transferred out of the ICU yesterday. He is currently hemodialysis dependent. He is scheduled for hemodialysis tomorrow. Femoral catheter was not working well yesterday and this morning he was removed and he had a permacath placed. Patient remains oliguric. Nephrology is ordered another dose of IV Lasix. Small amount of urine is bloody in Hoang bag. Patient denies any chest pain or shortness of breath. Denies any nausea or vomiting. Reports having a regular bowel movement. On 11/29/2017 patient is currently resting comfortably in chair. Creatinine 11.06 and bun 68. Patient planning to get hemodialysis today per nephrology. This time patient denies chest pain or shortness breath. Patient denies nausea vomiting or diarrhea. Hoang catheter remains in place with minimum bloody urine output 11/30/2017 patient is scheduled for hemodialysis tomorrow. 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 Nephrology is started patient on IV Solu-Medrol 1 g daily for 3 days. Patient's urine output is still very low. Denies any nausea or vomiting. Denies any chest pain or shortness of breath. Reports having bowel movements. 12/01/2017 patient is scheduled for hemodialysis today. He remains on IV Solu- Medrol for the positive CANCA. Still having very low urine output. Patient having elevated blood sugars secondary to steroids. Blood sugars are in the 300s to 400 this morning. He'll be placed on an insulin drip. Patient denies any chest pain or shortness of breath. Denies any nausea or vomiting. Reports having bowel movements. On 12/02/2017 patient is alert and oriented 3 in no apparent distress he denies any chest pain or shortness of breath there is no fever or chills no headache or dizziness no cough no palpitation no nausea or vomiting no abdominal pain and no urinary symptoms. Patient is maintained on IV Solu- Medrol 1 g daily for 3 days he will be switched to oral prednisone 60 mg daily subsequently. He has oliguric acute renal failure with positive C-ANCA he is scheduled for renal biopsy on Monday. Currently maintained on hemodialysis. On 12/03/2017 patient was seen and examined on the medical floor he is alert and oriented 3 he denies any symptoms at this time, there is no fever or chills no headache or dizziness patient denies any chest pain no shortness of breath no cough no palpitation no nausea or vomiting no abdominal pain no diarrhea, patient has a Hoang catheter in and has a minimal bloody urine output. 12/04/2017 patient was seen and examined he is alert and oriented 3 he denies any complaints at this time there is no fever or chills no headache or dizziness no chest pain no shortness of breath no cough no palpitation no nausea or vomiting no abdominal pain no diarrhea, patient has a Hoang catheter and there is small amount of bloody urine. Patient is scheduled for kidney biopsies this morning, he is scheduled for hemodialysis later in the day. Objective - Vital Signs Vital signs: Vital Signs Temp 97.5 F L 12/04/17 06:59 Pulse 61 12/04/17 06:59 Resp 16 12/04/17 06:59 BP 116/57 12/04/17 06:59 Pulse Ox 95 12/04/17 06:59 Intake & Output 12/03/17 12/04/17 12/04/17 18:59 06:59 18:59 Intake Total 673.025 25.234 8.147 Balance 673.025 25.234 8.147 Weight 125 kg Intake: Intake, IV Titration 83.025 25.234 8.147 Amount Insulin Regular 100 unit 83.025 In Sodium Chloride 0.9% 100 ml @ Titrate IV .Q0M [facility] Rx#:[id number] Insulin Regular 100 unit 25.234 8.147 In Sodium Chloride 0.9% 100 ml @ Titrate IV .Q0M [facility] Rx#:[id number] Oral 590 Other: Voiding Method Indwelling Catheter Indwelling Catheter # Voids 3 - Exam Head normocephalic and atraumatic Neck supple no JVD no goiter Lungs clear to auscultation bilaterally no wheezing or crackles Heart regular rate and rhythm S1-S2, no rub or gallop Abdomen is soft nontender nondistended positive bowel sounds no hepatosplenomegaly Extremities no edema no cyanosis or clubbing Neuro alert and orientated to 3 with no gross focal deficit - Labs CBC & Chem 7: 12/04/17 08:36 12/04/17 08:36 Labs: Abnormal Lab Results - Last 24 Hours (Table) 12/03/17 12/03/17 12/03/17 Range/Units 10:02 11:59 14:12 Sodium (137-145) mmol/L Potassium (3.5-5.1) mmol/L Chloride (98-107) mmol/L Carbon Dioxide (22-30) mmol/L BUN (9-20) mg/dL Creatinine (0.66-1.25) mg/dL Glucose (74-99) mg/dL POC Glucose (mg/dL) 265 H 242 H 274 H (75-99) mg/dL Calcium (8.4-10.2) mg/dL Phosphorus (2.5-4.5) mg/dL 12/03/17 12/03/17 12/03/17 Range/Units 15:57 18:05 20:01 Sodium (137-145) mmol/L Potassium (3.5-5.1) mmol/L Chloride (98-107) mmol/L Carbon Dioxide (22-30) mmol/L BUN (9-20) mg/dL Creatinine (0.66-1.25) mg/dL Glucose (74-99) mg/dL POC Glucose (mg/dL) 270 H 203 H 189 H (75-99) mg/dL Calcium (8.4-10.2) mg/dL Phosphorus (2.5-4.5) mg/dL 12/03/17 12/03/17 12/04/17 Range/Units 21:59 23:54 02:00 Sodium (137-145) mmol/L Potassium (3.5-5.1) mmol/L Chloride (98-107) mmol/L Carbon Dioxide (22-30) mmol/L BUN (9-20) mg/dL Creatinine (0.66-1.25) mg/dL Glucose (74-99) mg/dL POC Glucose (mg/dL) 148 H 150 H 127 H (75-99) mg/dL Calcium (8.4-10.2) mg/dL Phosphorus (2.5-4.5) mg/dL 12/04/17 12/04/17 12/04/17 Range/Units 03:06 04:49 06:46 Sodium (137-145) mmol/L Potassium (3.5-5.1) mmol/L Chloride (98-107) mmol/L Carbon Dioxide (22-30) mmol/L BUN (9-20) mg/dL Creatinine (0.66-1.25) mg/dL Glucose (74-99) mg/dL POC Glucose (mg/dL) 152 H 165 H 127 H (75-99) mg/dL Calcium (8.4-10.2) mg/dL Phosphorus (2.5-4.5) mg/dL 12/04/17 12/04/17 Range/Units 08:36 09:06 Sodium 132 L (137-145) mmol/L Potassium 5.4 H (3.5-5.1) mmol/L Chloride 97 L (98-107) mmol/L Carbon Dioxide 18 L (22-30) mmol/L BUN 131 H* (9-20) mg/dL Creatinine 12.12 H* (0.66-1.25) mg/dL Glucose 117 H (74-99) mg/dL POC Glucose (mg/dL) 141 H (75-99) mg/dL Calcium 7.2 L (8.4-10.2) mg/dL Phosphorus 8.7 H (2.5-4.5) mg/dL Assessment and Plan Plan: 1. Acute kidney injury with profound hyperkalemia causing profound weakness and EKG changes. Initial potassium 9.0, creatinine 15.61 and bun 109. Acute kidney injury secondary to ATN secondary to intravascular volume depletion from diarrhea, JEANMARIE inhibitor and NSAIDs. No evidence of hydronephrosis on ultrasound. Patient had emergent hemodialysis on admission. And is currently hemodialysis dependent. Nephrology workup in progress. Patient initially scheduled for a kidney biopsy which is currently on hold due to patient being on aspirin. Aspirin has been discontinued per nephrology. Continue to hold JEANMARIE inhibitor, metformin and nephrotoxic medications. c-ANCA is positive nephrology is started IV Solu-Medrol 1 g daily 3 days and then will switch over to oral prednisone. Today is day 2 of the IV Solu-Medrol. We'll await their further recommendations. Patient scheduled for hemodialysis today. 2. Severe Hyperkalemia. Secondary to JEANMARIE inhibitor, acute kidney injury and metabolic acidosis. Improved post dialysis. Initial potassium 9.0. Patient is hyperkalemic at 5.4. Should correct with hemodialysis 3. Elevated troponin. Troponin 0.059. EKG completed in emergency room showing wide QRS rhythm with occasional premature ventricular complexes. Cardiology service consulted. 2-D echo completed showing an EF of 55-60%. Per cardiology services continue with conservative medical approach with mild abnormal cardiac enzymes. 4. History of coronary artery disease 5. History of diabetes mellitus type 2. Patient having hyperglycemia with blood sugars in the 200s to 400s due to the IV steroids. We'll place him on insulin drip while on steroids. 6. History of essential hypertension. Blood pressure medication adjusted by nephrology blood pressures this morning 116/57 currently maintained on Coreg and when necessary hydralazine 7. History of hyperlipidemia 8. History of prostate cancer. Status post prostatectomy 9. Status post aortic valve replacement for aortic stenosis 10. History of hypothyroidism. Synthroid resumed 11. Iron deficiency anemia. Patient has received IV iron 3 doses per nephrology. 12. Metabolic acidosis secondary to acute kidney injury as well as metformin. Now improved 13. Hyperphosphatemia secondary to acute kidney injury. 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 Patient currently needing 3 days of IV Solu-Medrol prior to discharge Patient is scheduled for kidney biopsy today He is scheduled for hemodialysis today
[2017-12-04 11:04] LABS: Glucose,Whole Blood 136 mg/dL (75-99)
[2017-12-04] MEDS: SODIUM BICARBONATE TAB 650 MG TAB PO SCH ×2 (11:29→21:10)
[2017-12-04 13:04] LABS: Glucose,Whole Blood 154 mg/dL (75-99)
[2017-12-04] MEDS ORDERED: DESMOPRESSIN ACETATE IVPB ONE (14:00)
[2017-12-04] MEDS ORDERED: SODIUM CHLORIDE 0.9% IVPB ONE (14:00)
[2017-12-04 15:45] LABS: Glucose,Whole Blood 140 mg/dL (75-99)
[2017-12-04 16:50] LABS: Glucose,Whole Blood 121 mg/dL (75-99)
[2017-12-04 18:39] LABS: Glucose,Whole Blood 260 mg/dL (75-99)
[2017-12-04 21:01] LABS: Glucose,Whole Blood 313 mg/dL (75-99)
[2017-12-04] MEDS: LEVOTHYROXINE 25 MCG TAB PO SCH (21:10)
[2017-12-04 22:08] LABS: Glucose,Whole Blood 291 mg/dL (75-99)
[2017-12-05 00:31] LABS: Glucose,Whole Blood 184 mg/dL (75-99)
[2017-12-05] MEDS: INSULIN REGULAR 100 UNIT in SODIUM CHLORIDE 0.9% 100 ML IV SCH ×2 (00:33→08:43)
[2017-12-05 02:30] LABS: Glucose,Whole Blood 135 mg/dL (75-99)
[2017-12-05 04:31] LABS: Glucose,Whole Blood 111 mg/dL (75-99)
[2017-12-05 05:35] LABS: Glucose,Whole Blood 118 mg/dL (75-99)
[2017-12-05 06:28] LABS: Glucose,Whole Blood 127 mg/dL (75-99)
[2017-12-05 07:49] LABS: Glucose,Whole Blood 145 mg/dL (75-99)
[2017-12-05 08:08] LABS: Basophils % (A) 0 %; Eosinophils # (A) 0.1 k/uL (0-0.7); Eosinophils % (A) 1 %; HCT 28.3 % (39.0-53.0); HGB 9.7 gm/dL (13.0-17.5); Lymphocytes # (A) 0.9 k/uL (1.0-4.8); Lymphocytes % (A) 7 %; MCH 27.9 pg (25.0-35.0); MCHC 34.1 g/dL (31.0-37.0); MCV 81.9 fL (80.0-100.0); Mean Platelet Volume 7.3; Monocytes # (A) 1.3 k/uL (0-1.0); Monocytes % (A) 10 %; Neutrophils # (A) 9.7 k/uL (1.3-7.7); Neutrophils % (A) 79 %; Platelet Count 358 k/uL (150-450); RBC 3.46 m/uL (4.30-5.90); RDW 14.8 % (11.5-15.5); WBC 12.3 k/uL (3.8-10.6)
[2017-12-05 08:25] LABS: Albumin 2.7 g/dL (3.5-5.0); Potassium 5.4 mmol/L (3.5-5.1); Total Bilirubin 0.5 mg/dL (0.2-1.3); Total Protein 5.1 g/dL (6.3-8.2)
[2017-12-05] MEDS: INSULIN ASPART 100 UNIT/ML 1 ML 10 ML VIAL SQ SCH ×4 (08:48→20:29)
[2017-12-05] MEDS: predniSONE 20 MG TAB PO SCH (08:52)
[2017-12-05] MEDS: CALCIUM ACETATE 667 MG CAP PO SCH ×3 (08:52→18:15)
[2017-12-05] MEDS: SODIUM BICARBONATE TAB 650 MG TAB PO SCH ×2 (08:52→20:29)
[2017-12-05] MEDS: CARVEDILOL 12.5 MG TAB PO SCH ×2 (08:52→18:15)
[2017-12-05] MEDS: PANTOPRAZOLE 40 MG TABLET PO SCH (08:52)
[2017-12-05] MEDS: NIFEdipine XL 90 MG TAB.ER.24 PO SCH (08:52)
[2017-12-05] MEDS: HEPARIN SODIUM,PORCINE 5,000 UNIT/ML 1 ML VIAL SQ SCH ×3 (08:53→20:29)
[2017-12-05] MEDS ORDERED: ASPIRIN 81 MG PO SCH (09:00)
--- NOTE | 2017-12-05 09:53 | P.PN ---
Subjective Patient is seen in follow-up for acute kidney injury. Creatinine was over 15 on admission and potassium level was 9. He is currently hemodialysis dependent. Patient is awake and alert. Denies chest pain or shortness of breath. Oral intake is good. Patient remains oliguric. Patient has a permacath in place. Creatinine June 2014 and July 2016 was 1.1. Patient is noted to be c-ANCA positive and is scheduled for kidney biopsy today. On oral prednisone. No active complaints. Vital signs are stable. General: The patient appeared well nourished and normally developed. HEENT: Head exam is unremarkable. Neck is without jugular venous distension. LUNGS: Breath sounds decreased. HEART: Rate and Rhythm are regular. First and second heart sounds normal. No murmurs, rubs or gallops. ABDOMEN: Abdominal exam reveals normal bowel sounds. Non-tender and non- distended. No evidence of peritonitis. EXTREMITITES: No clubbing, cyanosis, or edema. Objective - Vital Signs Vital signs: Vital Signs Temp 97.7 F 12/05/17 07:00 Pulse 60 12/05/17 07:00 Resp 16 12/05/17 00:42 BP 118/67 12/05/17 07:00 Pulse Ox 94 L 12/05/17 07:00 Intake & Output 12/04/17 12/05/17 12/05/17 18:59 06:59 18:59 Intake Total 24.808 315.863 0 Balance 24.808 315.863 0 Weight 125 kg Intake: Intake, IV Titration 24.808 65.863 0 Amount Insulin Regular 100 unit 24.808 65.863 0 In Sodium Chloride 0.9% 100 ml @ Titrate IV .Q0M [facility] Rx#:[id number] Oral 250 Other: Voiding Method Indwelling Catheter Indwelling Catheter Indwelling Catheter - Labs CBC & Chem 7: 12/05/17 07:24 12/05/17 07:24 Labs: Abnormal Lab Results - Last 24 Hours (Table) 12/04/17 12/04/17 12/04/17 Range/Units 10:58 13:02 15:43 WBC (3.8-10.6) k/uL RBC (4.30-5.90) m/uL Hgb (13.0-17.5) gm/dL Hct (39.0-53.0) % Neutrophils # (1.3-7.7) k/uL Lymphocytes # (1.0-4.8) k/uL Monocytes # (0-1.0) k/uL Sodium (137-145) mmol/L Potassium (3.5-5.1) mmol/L Chloride (98-107) mmol/L BUN (9-20) mg/dL Creatinine (0.66-1.25) mg/dL Glucose (74-99) mg/dL POC Glucose (mg/dL) 136 H 154 H 140 H (75-99) mg/dL Calcium (8.4-10.2) mg/dL AST (17-59) U/L Total Protein (6.3-8.2) g/dL Albumin (3.5-5.0) g/dL 12/04/17 12/04/17 12/04/17 Range/Units 16:48 18:38 20:59 WBC (3.8-10.6) k/uL RBC (4.30-5.90) m/uL Hgb (13.0-17.5) gm/dL Hct (39.0-53.0) % Neutrophils # (1.3-7.7) k/uL Lymphocytes # (1.0-4.8) k/uL Monocytes # (0-1.0) k/uL Sodium (137-145) mmol/L Potassium (3.5-5.1) mmol/L Chloride (98-107) mmol/L BUN (9-20) mg/dL Creatinine (0.66-1.25) mg/dL Glucose (74-99) mg/dL POC Glucose (mg/dL) 121 H 260 H 313 H (75-99) mg/dL Calcium (8.4-10.2) mg/dL AST (17-59) U/L Total Protein (6.3-8.2) g/dL Albumin (3.5-5.0) g/dL 12/04/17 12/05/17 12/05/17 Range/Units 21:54 00:28 02:28 WBC (3.8-10.6) k/uL RBC (4.30-5.90) m/uL Hgb (13.0-17.5) gm/dL Hct (39.0-53.0) % Neutrophils # (1.3-7.7) k/uL Lymphocytes # (1.0-4.8) k/uL Monocytes # (0-1.0) k/uL Sodium (137-145) mmol/L Potassium (3.5-5.1) mmol/L Chloride (98-107) mmol/L BUN (9-20) mg/dL Creatinine (0.66-1.25) mg/dL Glucose (74-99) mg/dL POC Glucose (mg/dL) 291 H 184 H 135 H (75-99) mg/dL Calcium (8.4-10.2) mg/dL AST (17-59) U/L Total Protein (6.3-8.2) g/dL Albumin (3.5-5.0) g/dL 12/05/17 12/05/17 12/05/17 Range/Units 04:30 05:33 06:26 WBC (3.8-10.6) k/uL RBC (4.30-5.90) m/uL Hgb (13.0-17.5) gm/dL Hct (39.0-53.0) % Neutrophils # (1.3-7.7) k/uL Lymphocytes # (1.0-4.8) k/uL Monocytes # (0-1.0) k/uL Sodium (137-145) mmol/L Potassium (3.5-5.1) mmol/L Chloride (98-107) mmol/L BUN (9-20) mg/dL Creatinine (0.66-1.25) mg/dL Glucose (74-99) mg/dL POC Glucose (mg/dL) 111 H 118 H 127 H (75-99) mg/dL Calcium (8.4-10.2) mg/dL AST (17-59) U/L Total Protein (6.3-8.2) g/dL Albumin (3.5-5.0) g/dL 12/05/17 12/05/17 12/05/17 Range/Units 07:24 07:24 07:47 WBC 12.3 H (3.8-10.6) k/uL RBC 3.46 L (4.30-5.90) m/uL Hgb 9.7 L (13.0-17.5) gm/dL Hct 28.3 L (39.0-53.0) % Neutrophils # 9.7 H (1.3-7.7) k/uL Lymphocytes # 0.9 L (1.0-4.8) k/uL Monocytes # 1.3 H (0-1.0) k/uL Sodium 133 L (137-145) mmol/L Potassium 5.4 H (3.5-5.1) mmol/L Chloride 97 L (98-107) mmol/L BUN 92 H (9-20) mg/dL Creatinine 8.92 H* (0.66-1.25) mg/dL Glucose 127 H (74-99) mg/dL POC Glucose (mg/dL) 145 H (75-99) mg/dL Calcium 7.0 L (8.4-10.2) mg/dL AST 11 L (17-59) U/L Total Protein 5.1 L (6.3-8.2) g/dL Albumin 2.7 L (3.5-5.0) g/dL Assessment and Plan Plan: Assessment: 1. 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 Creatinine 15.6 on admission. Baseline creatinine is near 1. No evidence of hydronephrosis noted on renal ultrasound. Currently hemodialysis dependent. He is noted to have nephrotic range proteinuria. Urine eosinophils negative. MANUELITO, double-stranded DNA antibody, Hepatitis panel negative. SPEP negative. c- ANCA positive. Anti-GBM Ab negative. 2. Severe hyperkalemia secondary to ramipril, acute kidney injury and metabolic acidosis. Improved postdialysis. 3. Metabolic acidosis secondary to acute kidney injury. Patient was also on metformin. 4. Insulin-dependent diabetes mellitus. 5. Pyuria. Urine culture negative. 6. Benign hypertension. Partially due to steroids. Controlled. 7. Hyperphosphatemia secondary to acute kidney injury. 8. Anemia. Iron deficiency noted. Status post 3 doses of IV iron. 9. Volume overload. Improved with ultrafiltration. Plan: Hemodialysis tomorrow. Scheduled for kidney biopsy today. I will give him DDAVP one hour prior to kidney biopsy. Avoid nephrotoxins. Continue to hold JEANMARIE inhibitor and metformin for now. Maintain current antihypertensives. Continue to monitor renal function and urine output closely. Continue to assess on a day-to-day basis for need for renal replacement therapy. Maintain PhosLo with meals. information services manager on board to help facilitate outpatient hemodialysis set up. Once diagnosis confirmed with biopsy, will start either cytoxan or rituximab for induction therapy. Will also benefit from plasma exchange. He is status post 3 doses of IV Solu-Medrol. Maintain prednisone 60 mg daily.
[2017-12-05 11:31] LABS: Glucose,Whole Blood 120 mg/dL (75-99)
[2017-12-05] MEDS ORDERED: SODIUM POLYSTYRENE SULFONATE 15 GM/60 ML BOTTLE PO STA (11:33)
[2017-12-05 13:39] LABS: Glucose,Whole Blood 188 mg/dL (75-99)
--- NOTE | 2017-12-05 15:18 | P.PN ---
Subjective Progress Note Date: 12/05/17 This is a 82-year-old male patient who presented to the emergency room with complaints of increased weakness that has been occurring for the past 3-4 days. She has a known past medical history of prostate cancer, diabetes mellitus, hyperlipidemia and essential hypertension. Patient states that over the past week he's notes he has not been able to walk as far as he used to be able to. Chest x-ray completed showing rotated expiratory exam. Correlate to exclude pulmonary venous hypertension and interstitial edema. Initial labs showing creatinine of 15.61, bun 109 and potassium 9.0. Nephrology consulted immediately. Hemodialysis access per vascular disease and patient received hemodialysis in the emergency room last night. Patient is currently in the intensive care unit. Potassium now 5.8. Bun 82 and creatinine 11.24. Per nursing staff patient to receive hemodialysis again today per nephrology services. Troponin also elevated at 0.059. CT completed showing wide QRS rhythm and occasional premature ventricular complexes Cardiology services following. Per cardiology patient will be started on aspirin and small dose of metoprolol 12.5. 2-D echo will be ordered. Ultrasound of bladder and kidneys completed showing high no hydronephrosis. 3.5 cm cyst on the right. Dr. Do consulted for critical care consult. Patient currently on bicarb drip along with Cleveprex for blood pressure control. At this time patient states he is feeling improved. Patient denies chest pain or shortness of breath. Patient denies nausea vomiting or diarrhea. Patient denies any urinary burning or frequency. On 11/24/2017 patient is currently resting in bed. Creatinine 10.28 and bun 63. Potassium improving to 5.4. Per nursing staff patient to receive dialysis again today. At this time patient states he's feeling much improved. Patient denies chest pain or shortness breath. Patient denies nausea vomiting or diarrhea. Patient denies any urinary symptoms On 11/26/2017 patient is currently resting in bed. Creatinine remains elevated at 8.54 and bun 45. Potassium 5.0. Patient states he feels improved. at this time patient denies chest pains. Denies nausea. Denies urinary burning or frequency On 11/27/2017 patient is currently resting in bed. Patient denies any complaints at this time. Creatinine increasing to 10.26 and bun 57. Patient did not receive dialysis yesterday. Awaiting nephrology input in regards to hemodialysis today. This time patient denies chest pain or shortness of breath. Patient denies nausea vomiting or diarrhea. Patient denies any urinary burning or frequency 11/28/2017 patient was transferred out of the ICU yesterday. He is currently hemodialysis dependent. He is scheduled for hemodialysis tomorrow. Femoral catheter was not working well yesterday and this morning he was removed and he had a permacath placed. Patient remains oliguric. Nephrology is ordered another dose of IV Lasix. Small amount of urine is bloody in Hoang bag. Patient denies any chest pain or shortness of breath. Denies any nausea or vomiting. Reports having a regular bowel movement. On 11/29/2017 patient is currently resting comfortably in chair. Creatinine 11.06 and bun 68. Patient planning to get hemodialysis today per nephrology. This time patient denies chest pain or shortness breath. Patient denies nausea vomiting or diarrhea. Hoang catheter remains in place with minimum bloody urine output 11/30/2017 patient is scheduled for hemodialysis tomorrow. 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 Nephrology is started patient on IV Solu-Medrol 1 g daily for 3 days. Patient's urine output is still very low. Denies any nausea or vomiting. Denies any chest pain or shortness of breath. Reports having bowel movements. 12/01/2017 patient is scheduled for hemodialysis today. He remains on IV Solu- Medrol for the positive CANCA. Still having very low urine output. Patient having elevated blood sugars secondary to steroids. Blood sugars are in the 300s to 400 this morning. He'll be placed on an insulin drip. Patient denies any chest pain or shortness of breath. Denies any nausea or vomiting. Reports having bowel movements. On 12/02/2017 patient is alert and oriented 3 in no apparent distress he denies any chest pain or shortness of breath there is no fever or chills no headache or dizziness no cough no palpitation no nausea or vomiting no abdominal pain and no urinary symptoms. Patient is maintained on IV Solu- Medrol 1 g daily for 3 days he will be switched to oral prednisone 60 mg daily subsequently. He has oliguric acute renal failure with positive C-ANCA he is scheduled for renal biopsy on Monday. Currently maintained on hemodialysis. On 12/03/2017 patient was seen and examined on the medical floor he is alert and oriented 3 he denies any symptoms at this time, there is no fever or chills no headache or dizziness patient denies any chest pain no shortness of breath no cough no palpitation no nausea or vomiting no abdominal pain no diarrhea, patient has a Hoang catheter in and has a minimal bloody urine output. 12/04/2017 patient was seen and examined he is alert and oriented 3 he denies any complaints at this time there is no fever or chills no headache or dizziness no chest pain no shortness of breath no cough no palpitation no nausea or vomiting no abdominal pain no diarrhea, patient has a Hoang catheter and there is small amount of bloody urine. Patient is scheduled for kidney biopsies this morning, he is scheduled for hemodialysis later in the day. 12/05/2017 patient's kidney biopsies rescheduled for today. There was a scheduling history of yesterday and biopsy could not be completed. Patient underwent hemodialysis yesterday. He is lying in bed comfortably. Denies any chest pain or shortness of breath. Denies any nausea or vomiting. Had a bowel movement yesterday. Still very low urine output. Patient's diet will be restarted again after biopsy done this afternoon. Therefore his home insulin will be restarted at supper time. Objective - Vital Signs Vital signs: Vital Signs Temp 97.7 F 12/05/17 07:00 Pulse 60 12/05/17 07:00 Resp 16 12/05/17 00:42 BP 118/67 12/05/17 07:00 Pulse Ox 94 L 12/05/17 07:00 Intake & Output 12/04/17 12/05/17 12/05/17 18:59 06:59 18:59 Intake Total 24.808 315.863 0 Balance 24.808 315.863 0 Weight 125 kg Intake: Intake, IV Titration 24.808 65.863 0 Amount Insulin Regular 100 unit 24.808 65.863 0 In Sodium Chloride 0.9% 100 ml @ Titrate IV .Q0M [facility] Rx#:[id number] Oral 250 Other: Voiding Method Indwelling Catheter Indwelling Catheter Indwelling Catheter - Exam Head normocephalic Neck supple Lungs clear to auscultation bilaterally no wheezing or crackles Heart regular rate and rhythm S1-S2, no rub or gallop Abdomen is soft nontender nondistended positive bowel sounds no hepatosplenomegaly Extremities trace edema bilaterally Neuro alert and orientated to 3 - Labs CBC & Chem 7: 12/05/17 07:24 12/05/17 07:24 Labs: Abnormal Lab Results - Last 24 Hours (Table) 12/04/17 12/04/17 12/04/17 Range/Units 13:02 15:43 16:48 WBC (3.8-10.6) k/uL RBC (4.30-5.90) m/uL Hgb (13.0-17.5) gm/dL Hct (39.0-53.0) % Neutrophils # (1.3-7.7) k/uL Lymphocytes # (1.0-4.8) k/uL Monocytes # (0-1.0) k/uL Sodium (137-145) mmol/L Potassium (3.5-5.1) mmol/L Chloride (98-107) mmol/L BUN (9-20) mg/dL Creatinine (0.66-1.25) mg/dL Glucose (74-99) mg/dL POC Glucose (mg/dL) 154 H 140 H 121 H (75-99) mg/dL Calcium (8.4-10.2) mg/dL AST (17-59) U/L Total Protein (6.3-8.2) g/dL Albumin (3.5-5.0) g/dL 12/04/17 12/04/17 12/04/17 Range/Units 18:38 20:59 21:54 WBC (3.8-10.6) k/uL RBC (4.30-5.90) m/uL Hgb (13.0-17.5) gm/dL Hct (39.0-53.0) % Neutrophils # (1.3-7.7) k/uL Lymphocytes # (1.0-4.8) k/uL Monocytes # (0-1.0) k/uL Sodium (137-145) mmol/L Potassium (3.5-5.1) mmol/L Chloride (98-107) mmol/L BUN (9-20) mg/dL Creatinine (0.66-1.25) mg/dL Glucose (74-99) mg/dL POC Glucose (mg/dL) 260 H 313 H 291 H (75-99) mg/dL Calcium (8.4-10.2) mg/dL AST (17-59) U/L Total Protein (6.3-8.2) g/dL Albumin (3.5-5.0) g/dL 12/05/17 12/05/17 12/05/17 Range/Units 00:28 02:28 04:30 WBC (3.8-10.6) k/uL RBC (4.30-5.90) m/uL Hgb (13.0-17.5) gm/dL Hct (39.0-53.0) % Neutrophils # (1.3-7.7) k/uL Lymphocytes # (1.0-4.8) k/uL Monocytes # (0-1.0) k/uL Sodium (137-145) mmol/L Potassium (3.5-5.1) mmol/L Chloride (98-107) mmol/L BUN (9-20) mg/dL Creatinine (0.66-1.25) mg/dL Glucose (74-99) mg/dL POC Glucose (mg/dL) 184 H 135 H 111 H (75-99) mg/dL Calcium (8.4-10.2) mg/dL AST (17-59) U/L Total Protein (6.3-8.2) g/dL Albumin (3.5-5.0) g/dL 12/05/17 12/05/17 12/05/17 Range/Units 05:33 06:26 07:24 WBC 12.3 H (3.8-10.6) k/uL RBC 3.46 L (4.30-5.90) m/uL Hgb 9.7 L (13.0-17.5) gm/dL Hct 28.3 L (39.0-53.0) % Neutrophils # 9.7 H (1.3-7.7) k/uL Lymphocytes # 0.9 L (1.0-4.8) k/uL Monocytes # 1.3 H (0-1.0) k/uL Sodium (137-145) mmol/L Potassium (3.5-5.1) mmol/L Chloride (98-107) mmol/L BUN (9-20) mg/dL Creatinine (0.66-1.25) mg/dL Glucose (74-99) mg/dL POC Glucose (mg/dL) 118 H 127 H (75-99) mg/dL Calcium (8.4-10.2) mg/dL AST (17-59) U/L Total Protein (6.3-8.2) g/dL Albumin (3.5-5.0) g/dL 12/05/17 12/05/17 12/05/17 Range/Units 07:24 07:47 11:07 WBC (3.8-10.6) k/uL RBC (4.30-5.90) m/uL Hgb (13.0-17.5) gm/dL Hct (39.0-53.0) % Neutrophils # (1.3-7.7) k/uL Lymphocytes # (1.0-4.8) k/uL Monocytes # (0-1.0) k/uL Sodium 133 L (137-145) mmol/L Potassium 5.4 H (3.5-5.1) mmol/L Chloride 97 L (98-107) mmol/L BUN 92 H (9-20) mg/dL Creatinine 8.92 H* (0.66-1.25) mg/dL Glucose 127 H (74-99) mg/dL POC Glucose (mg/dL) 145 H 120 H (75-99) mg/dL Calcium 7.0 L (8.4-10.2) mg/dL AST 11 L (17-59) U/L Total Protein 5.1 L (6.3-8.2) g/dL Albumin 2.7 L (3.5-5.0) g/dL Assessment and Plan Assessment: 1. 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 Acute kidney injury with profound hyperkalemia causing profound weakness and EKG changes. Initial potassium 9.0, creatinine 15.61 and bun 109. No evidence of hydronephrosis on ultrasound. Patient had emergent hemodialysis on admission. And is currently hemodialysis dependent. Nephrology workup in progress. Patient initially scheduled for a kidney biopsy which is currently on hold due to patient being on aspirin. Aspirin has been discontinued per nephrology. Continue to hold JEANMARIE inhibitor, metformin and nephrotoxic medications. c-ANCA is positive patient completed treatment of IV site Medrol for 3 days. He is currently on oral prednisone 60 mg daily. Scheduled for kidney biopsy today. Await further nephrology recommendations. Patient is scheduled for hemodialysis tomorrow 2. Severe Hyperkalemia. Secondary to JEANMARIE inhibitor, acute kidney injury and metabolic acidosis. Improved post dialysis. Initial potassium 9.0. Patient has elevated potassium of 5.4. We'll give Kayexalate 15 g today. Repeat potassium level in a.m. 3. Elevated troponin. Troponin 0.059. EKG completed in emergency room showing wide QRS rhythm with occasional premature ventricular complexes. Cardiology service consulted. 2-D echo completed showing an EF of 55-60%. Per cardiology services continue with conservative medical approach with mild abnormal cardiac enzymes. Continue Lopressor 4. History of coronary artery disease 5. History of diabetes mellitus type 2. Blood sugars are showing improvement. Discontinue the insulin drip. Resume home insulin Humalog 75/25 with 60 units before breakfast and 54 units before supper with sliding scale coverage. will hold off on restarting the Humalog 10 units before lunch at this time. 6. History of essential hypertension. Continue with current medications hydralazine and metoprolol 7. History of hyperlipidemia 8. History of prostate cancer. Status post prostatectomy 9. Status post aortic valve replacement for aortic stenosis 10. History of hypothyroidism. Synthroid resumed 11. Iron deficiency anemia. Patient has received IV iron 3 doses per nephrology. 12. Metabolic acidosis secondary to acute kidney injury as well as metformin. Now improved 13. Hyperphosphatemia secondary to acute kidney injury. Continue PhosLo 14. Leukocytosis secondary to steroids 15. Severe protein calorie malnutrition. Continue protein supplement DVT prophylaxis heparin GI prophylaxis Protonix medical services manager working on ECF placement at [facility] with dialysis at time of discharge. I performed an examination of the patient and discussed their management with the physician [employer] Worker. I have reviewed the Physician Deer [employer] Worker's notes and agree with the documented findings and plan of care
--- NOTE | 2017-12-05 16:51 | P.PCN ---
Date of Procedure: 12/05/17 Preoperative Diagnosis: renal failure Postoperative Diagnosis: same Procedure(s) Performed: ct guide right renal cortex biopsy Anesthesia: local Surgeon: Gerson Trivedi Estimated Blood Loss (ml): 50 Pathology: other (core specimen to path) Condition: stable Disposition: floor Indications for Procedure: renal failure Operative Findings: 4 x 18 gauge lower pole right renal cortex, ct guide Description of Procedure: no immediate complication
[2017-12-05 20:14] LABS: Glucose,Whole Blood 398 mg/dL (75-99)
[2017-12-05] MEDS: INSULN ASP PRT/INSULIN ASPART 100 UNIT/ML 10 ML VIAL SQ SCH (20:29)
[2017-12-05] MEDS: LEVOTHYROXINE 25 MCG TAB PO SCH (20:29)
[2017-12-06 07:00] LABS: Glucose,Whole Blood 244 mg/dL (75-99)
--- NOTE | 2017-12-06 08:17 | CT ---
DATE OF EXAM: 12/05/2017 COMPARISON: NONE CT DLP: 1929 mGycm HISTORY: Renal failure PROCEDURE: Maximal barrier technique was utilized. After informed consent, the skin overlying a suit able path to the lower pole right kidney was localized using CT guidance, the skin was prepped and dr trejo. Lidocaine was used for local anesthesia. A skin sandrita made with a scalpel. Using CT guidance, a 17-gauge needle was advanced into in position at the inferior cortex of the right kidney where coa xial placement of an 18-gauge needle was used and core biopsy obtained. 4 passes made in total. Hemo stasis was achieved. There was no immediate complication and patient remained in stable condition. Specimen submitted to Pathology. IMPRESSION: Status post CT guided core biopsy of right renal cortex, pathology pending. This procedu re performed by the undersigned.
[2017-12-06] MEDS: CALCIUM ACETATE 667 MG CAP PO SCH ×3 (09:24→18:19)
[2017-12-06] MEDS: PANTOPRAZOLE 40 MG TABLET PO SCH (09:24)
[2017-12-06] MEDS: predniSONE 20 MG TAB PO SCH (09:24)
[2017-12-06] MEDS: SODIUM BICARBONATE TAB 650 MG TAB PO SCH ×2 (09:24→21:54)
[2017-12-06] MEDS: HEPARIN SODIUM,PORCINE 5,000 UNIT/ML 1 ML VIAL SQ SCH ×2 (09:26→21:53)
[2017-12-06 09:43] LABS: Basophils % (A) 0 %; Eosinophils # (A) 0.1 k/uL (0-0.7); Eosinophils % (A) 1 %; HCT 26.5 % (39.0-53.0); HGB 8.8 gm/dL (13.0-17.5); Lymphocytes # (A) 1.1 k/uL (1.0-4.8); Lymphocytes % (A) 10 %; MCH 27.5 pg (25.0-35.0); MCHC 33.2 g/dL (31.0-37.0); MCV 82.7 fL (80.0-100.0); Mean Platelet Volume 7.7; Monocytes # (A) 1.2 k/uL (0-1.0); Monocytes % (A) 11 %; Neutrophils # (A) 8.3 k/uL (1.3-7.7); Neutrophils % (A) 77 %; Platelet Count 299 k/uL (150-450); RDW 15.1 % (11.5-15.5); WBC 10.9 k/uL (3.8-10.6)
--- NOTE | 2017-12-06 09:58 | P.PN ---
Subjective Patient is seen in follow-up for acute kidney injury. Creatinine was over 15 on admission and potassium level was 9. He is currently hemodialysis dependent. Patient is awake and alert. Denies chest pain or shortness of breath. Oral intake is good. Patient remains oliguric. Patient has a permacath in place. Creatinine June 2014 and July 2016 was 1.1. Patient is noted to be c-ANCA positive and underwent kidney biopsy on December 05. On oral prednisone. No active complaints. Vital signs are stable. General: The patient appeared well nourished and normally developed. HEENT: Head exam is unremarkable. Neck is without jugular venous distension. LUNGS: Breath sounds decreased. HEART: Rate and Rhythm are regular. First and second heart sounds normal. No murmurs, rubs or gallops. ABDOMEN: Abdominal exam reveals normal bowel sounds. Non-tender and non- distended. No evidence of peritonitis. EXTREMITITES: No clubbing, cyanosis, or edema. Objective - Vital Signs Vital signs: Vital Signs Temp 97.7 F 12/06/17 07:37 Pulse 62 12/06/17 07:37 Resp 18 12/06/17 07:37 BP 123/64 12/06/17 07:37 Pulse Ox 95 12/06/17 07:37 Intake & Output 12/05/17 12/06/17 12/06/17 18:59 06:59 18:59 Intake Total 0 220 Output Total 60 150 Balance -60 70 Weight 125 kg Intake: Intake, IV Titration 0 220 Amount Insulin Regular 100 unit 0 In Sodium Chloride 0.9% 100 ml @ Titrate IV .Q0M [facility] Rx#:[id number] Sodium Chloride 0.9% 500 220 ml 500 ml @ 0 mls/hr IV . [facility] Rx#: [id number] Output: Urine 60 150 Other: Voiding Method Indwelling Catheter Indwelling Catheter Indwelling Catheter - Labs CBC & Chem 7: 12/06/17 08:20 12/05/17 07:24 Labs: Abnormal Lab Results - Last 24 Hours (Table) 12/05/17 12/05/17 12/05/17 Range/Units 11:07 13:27 20:03 WBC (3.8-10.6) k/uL RBC (4.30-5.90) m/uL Hgb (13.0-17.5) gm/dL Hct (39.0-53.0) % Neutrophils # (1.3-7.7) k/uL Monocytes # (0-1.0) k/uL POC Glucose (mg/dL) 120 H 188 H 398 H (75-99) mg/dL 12/06/17 12/06/17 Range/Units 06:58 08:20 WBC 10.9 H (3.8-10.6) k/uL RBC 3.20 L (4.30-5.90) m/uL Hgb 8.8 L (13.0-17.5) gm/dL Hct 26.5 L (39.0-53.0) % Neutrophils # 8.3 H (1.3-7.7) k/uL Monocytes # 1.2 H (0-1.0) k/uL POC Glucose (mg/dL) 244 H (75-99) mg/dL Assessment and Plan Plan: Assessment: 1. 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 Creatinine 15.6 on admission. Baseline creatinine is near 1. No evidence of hydronephrosis noted on renal ultrasound. Currently hemodialysis dependent. He is noted to have nephrotic range proteinuria. Urine eosinophils negative. MANUELITO, double-stranded DNA antibody, Hepatitis panel negative. SPEP negative. c- ANCA positive. Anti-GBM Ab negative. 2. Severe hyperkalemia secondary to ramipril, acute kidney injury and metabolic acidosis. Improved postdialysis. 3. Metabolic acidosis secondary to acute kidney injury. Patient was also on metformin. 4. Insulin-dependent diabetes mellitus. 5. Pyuria. Urine culture negative. 6. Benign hypertension. Partially due to steroids. Controlled. 7. Hyperphosphatemia secondary to acute kidney injury. 8. Anemia. Iron deficiency noted. Status post 3 doses of IV iron. 9. Volume overload. Improved with ultrafiltration. Plan: Hemodialysis today. Avoid kidney biopsy results. Avoid nephrotoxins. Continue to hold JEANMARIE inhibitor and metformin for now. Maintain current antihypertensives. Continue to monitor renal function and urine output closely. Continue to assess on a day-to-day basis for need for renal replacement therapy. Maintain PhosLo with meals. catering convention services manager on board to help facilitate outpatient hemodialysis set up. Once diagnosis confirmed with biopsy, will start either cytoxan or rituximab for induction therapy. Will also benefit from plasma exchange. He is status post 3 doses of IV Solu-Medrol. Maintain prednisone 60 mg daily ( started dec 03).
[2017-12-06 10:17] LABS: Albumin 2.7 g/dL (3.5-5.0); Calcium 6.6 mg/dL (8.4-10.2); Potassium 5.4 mmol/L (3.5-5.1); Total Bilirubin 0.4 mg/dL (0.2-1.3); Total Protein 5.1 g/dL (6.3-8.2)
[2017-12-06] MEDS: CARVEDILOL 12.5 MG TAB PO SCH ×2 (10:19→18:19)
[2017-12-06] MEDS: NIFEdipine XL 90 MG TAB.ER.24 PO SCH (10:19)
[2017-12-06] MEDS: INSULN ASP PRT/INSULIN ASPART 100 UNIT/ML 10 ML VIAL SQ SCH ×2 (10:34→18:20)
[2017-12-06] MEDS: INSULIN ASPART 100 UNIT/ML 1 ML 10 ML VIAL SQ SCH ×4 (10:35→21:53)
[2017-12-06 12:13] LABS: Glucose,Whole Blood 221 mg/dL (75-99)
--- NOTE | 2017-12-06 12:43 | P.PN ---
Subjective Progress Note Date: 12/06/17 This is a 82-year-old male patient who presented to the emergency room with complaints of increased weakness that has been occurring for the past 3-4 days. She has a known past medical history of prostate cancer, diabetes mellitus, hyperlipidemia and essential hypertension. Patient states that over the past week he's notes he has not been able to walk as far as he used to be able to. Chest x-ray completed showing rotated expiratory exam. Correlate to exclude pulmonary venous hypertension and interstitial edema. Initial labs showing creatinine of 15.61, bun 109 and potassium 9.0. Nephrology consulted immediately. Hemodialysis access per vascular disease and patient received hemodialysis in the emergency room last night. Patient is currently in the intensive care unit. Potassium now 5.8. Bun 82 and creatinine 11.24. Per nursing staff patient to receive hemodialysis again today per nephrology services. Troponin also elevated at 0.059. CT completed showing wide QRS rhythm and occasional premature ventricular complexes Cardiology services following. Per cardiology patient will be started on aspirin and small dose of metoprolol 12.5. 2-D echo will be ordered. Ultrasound of bladder and kidneys completed showing high no hydronephrosis. 3.5 cm cyst on the right. Dr. Do consulted for critical care consult. Patient currently on bicarb drip along with Cleveprex for blood pressure control. At this time patient states he is feeling improved. Patient denies chest pain or shortness of breath. Patient denies nausea vomiting or diarrhea. Patient denies any urinary burning or frequency. On 11/24/2017 patient is currently resting in bed. Creatinine 10.28 and bun 63. Potassium improving to 5.4. Per nursing staff patient to receive dialysis again today. At this time patient states he's feeling much improved. Patient denies chest pain or shortness breath. Patient denies nausea vomiting or diarrhea. Patient denies any urinary symptoms On 11/26/2017 patient is currently resting in bed. Creatinine remains elevated at 8.54 and bun 45. Potassium 5.0. Patient states he feels improved. at this time patient denies chest pains. Denies nausea. Denies urinary burning or frequency On 11/27/2017 patient is currently resting in bed. Patient denies any complaints at this time. Creatinine increasing to 10.26 and bun 57. Patient did not receive dialysis yesterday. Awaiting nephrology input in regards to hemodialysis today. This time patient denies chest pain or shortness of breath. Patient denies nausea vomiting or diarrhea. Patient denies any urinary burning or frequency 11/28/2017 patient was transferred out of the ICU yesterday. He is currently hemodialysis dependent. He is scheduled for hemodialysis tomorrow. Femoral catheter was not working well yesterday and this morning he was removed and he had a permacath placed. Patient remains oliguric. Nephrology is ordered another dose of IV Lasix. Small amount of urine is bloody in Hoang bag. Patient denies any chest pain or shortness of breath. Denies any nausea or vomiting. Reports having a regular bowel movement. On 11/29/2017 patient is currently resting comfortably in chair. Creatinine 11.06 and bun 68. Patient planning to get hemodialysis today per nephrology. This time patient denies chest pain or shortness breath. Patient denies nausea vomiting or diarrhea. Hoang catheter remains in place with minimum bloody urine output 11/30/2017 patient is scheduled for hemodialysis tomorrow. 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 Nephrology is started patient on IV Solu-Medrol 1 g daily for 3 days. Patient's urine output is still very low. Denies any nausea or vomiting. Denies any chest pain or shortness of breath. Reports having bowel movements. 12/01/2017 patient is scheduled for hemodialysis today. He remains on IV Solu- Medrol for the positive CANCA. Still having very low urine output. Patient having elevated blood sugars secondary to steroids. Blood sugars are in the 300s to 400 this morning. He'll be placed on an insulin drip. Patient denies any chest pain or shortness of breath. Denies any nausea or vomiting. Reports having bowel movements. On 12/02/2017 patient is alert and oriented 3 in no apparent distress he denies any chest pain or shortness of breath there is no fever or chills no headache or dizziness no cough no palpitation no nausea or vomiting no abdominal pain and no urinary symptoms. Patient is maintained on IV Solu- Medrol 1 g daily for 3 days he will be switched to oral prednisone 60 mg daily subsequently. He has oliguric acute renal failure with positive C-ANCA he is scheduled for renal biopsy on Monday. Currently maintained on hemodialysis. On 12/03/2017 patient was seen and examined on the medical floor he is alert and oriented 3 he denies any symptoms at this time, there is no fever or chills no headache or dizziness patient denies any chest pain no shortness of breath no cough no palpitation no nausea or vomiting no abdominal pain no diarrhea, patient has a Hoang catheter in and has a minimal bloody urine output. 12/04/2017 patient was seen and examined he is alert and oriented 3 he denies any complaints at this time there is no fever or chills no headache or dizziness no chest pain no shortness of breath no cough no palpitation no nausea or vomiting no abdominal pain no diarrhea, patient has a Hoang catheter and there is small amount of bloody urine. Patient is scheduled for kidney biopsies this morning, he is scheduled for hemodialysis later in the day. 12/05/2017 patient's kidney biopsies rescheduled for today. There was a scheduling history of yesterday and biopsy could not be completed. Patient underwent hemodialysis yesterday. He is lying in bed comfortably. Denies any chest pain or shortness of breath. Denies any nausea or vomiting. Had a bowel movement yesterday. Still very low urine output. Patient's diet will be restarted again after biopsy done this afternoon. Therefore his home insulin will be restarted at supper time. 12/06/2017 patient is currently receiving hemodialysis. Patient did undergo kidney biopsy yesterday. Results pending. At this time patient denies chest pain or shortness breath. Denies any nausea or vomiting. Urine output remains minimal Objective - Vital Signs Vital signs: Vital Signs Temp 97.7 F 12/06/17 07:37 Pulse 62 12/06/17 07:37 Resp 18 12/06/17 07:37 BP 123/64 12/06/17 07:37 Pulse Ox 95 12/06/17 07:37 Intake & Output 12/05/17 12/06/17 12/06/17 18:59 06:59 18:59 Intake Total 0 220 Output Total 60 150 Balance -60 70 Weight 125 kg Intake: Intake, IV Titration 0 220 Amount Insulin Regular 100 unit 0 In Sodium Chloride 0.9% 100 ml @ Titrate IV .Q0M [facility] Rx#:[id number] Sodium Chloride 0.9% 500 220 ml 500 ml @ 0 mls/hr IV . [facility] Rx#: [id number] Output: Urine 60 150 Other: Voiding Method Indwelling Catheter Indwelling Catheter Indwelling Catheter - Exam Head normocephalic Neck supple Lungs clear to auscultation bilaterally no wheezing or crackles Heart regular rate and rhythm S1-S2, no rub or gallop Abdomen is soft nontender nondistended positive bowel sounds no hepatosplenomegaly Extremities trace edema bilaterally Neuro alert and orientated to 3 - Labs CBC & Chem 7: 12/06/17 08:20 12/06/17 08:20 Labs: Abnormal Lab Results - Last 24 Hours (Table) 12/05/17 12/05/17 12/06/17 Range/Units 13:27 20:03 06:58 WBC (3.8-10.6) k/uL RBC (4.30-5.90) m/uL Hgb (13.0-17.5) gm/dL Hct (39.0-53.0) % Neutrophils # (1.3-7.7) k/uL Monocytes # (0-1.0) k/uL Sodium (137-145) mmol/L Potassium (3.5-5.1) mmol/L Chloride (98-107) mmol/L Carbon Dioxide (22-30) mmol/L BUN (9-20) mg/dL Creatinine (0.66-1.25) mg/dL Glucose (74-99) mg/dL POC Glucose (mg/dL) 188 H 398 H 244 H (75-99) mg/dL Calcium (8.4-10.2) mg/dL AST (17-59) U/L Total Protein (6.3-8.2) g/dL Albumin (3.5-5.0) g/dL 12/06/17 12/06/17 12/06/17 Range/Units 08:20 08:20 11:56 WBC 10.9 H (3.8-10.6) k/uL RBC 3.20 L (4.30-5.90) m/uL Hgb 8.8 L (13.0-17.5) gm/dL Hct 26.5 L (39.0-53.0) % Neutrophils # 8.3 H (1.3-7.7) k/uL Monocytes # 1.2 H (0-1.0) k/uL Sodium 132 L (137-145) mmol/L Potassium 5.4 H (3.5-5.1) mmol/L Chloride 96 L (98-107) mmol/L Carbon Dioxide 17 L (22-30) mmol/L BUN 126 H* (9-20) mg/dL Creatinine 10.71 H* (0.66-1.25) mg/dL Glucose 255 H (74-99) mg/dL POC Glucose (mg/dL) 221 H (75-99) mg/dL Calcium 6.6 L (8.4-10.2) mg/dL AST 11 L (17-59) U/L Total Protein 5.1 L (6.3-8.2) g/dL Albumin 2.7 L (3.5-5.0) g/dL Assessment and Plan Assessment: 1. 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 Acute kidney injury with profound hyperkalemia causing profound weakness and EKG changes. Initial potassium 9.0, creatinine 15.61 and bun 109. No evidence of hydronephrosis on ultrasound. Patient had emergent hemodialysis on admission. And is currently hemodialysis dependent. Nephrology workup in progress. Patient initially scheduled for a kidney biopsy which is currently on hold due to patient being on aspirin. Aspirin has been discontinued per nephrology. Continue to hold JEANMARIE inhibitor, metformin and nephrotoxic medications. c-ANCA is positive patient completed treatment of IV site Medrol for 3 days. He is currently on oral prednisone 60 mg daily. Patient is scheduled for hemodialysis today. Patient underwent kidney biopsy yesterday awaiting results. Per nephrology once diagnosed as compared with biopsy, will start either Cytoxan or rituximab for induction therapy. Patient may also benefit from plasma exchanges. Patient to be maintained on 60 mg prednisone daily 2. Severe Hyperkalemia. Secondary to JEANMARIE inhibitor, acute kidney injury and metabolic acidosis. Improved post dialysis. Initial potassium 9.0. Patient has elevated potassium of 5.4. We'll give Kayexalate 15 g today. Repeat potassium level in a.m. 3. Elevated troponin. Troponin 0.059. EKG completed in emergency room showing wide QRS rhythm with occasional premature ventricular complexes. Cardiology service consulted. 2-D echo completed showing an EF of 55-60%. Per cardiology services continue with conservative medical approach with mild abnormal cardiac enzymes. Continue Lopressor 4. History of coronary artery disease 5. History of diabetes mellitus type 2. Blood sugars are showing improvement. Discontinue the insulin drip. Resume home insulin Humalog 75/25 with 60 units before breakfast and 54 units before supper with sliding scale coverage. will hold off on restarting the Humalog 10 units before lunch at this time. 6. History of essential hypertension. Continue with current medications hydralazine and metoprolol 7. History of hyperlipidemia 8. History of prostate cancer. Status post prostatectomy 9. Status post aortic valve replacement for aortic stenosis 10. History of hypothyroidism. Synthroid resumed 11. Iron deficiency anemia. Patient has received IV iron 3 doses per nephrology. 12. Metabolic acidosis secondary to acute kidney injury as well as metformin. Now improved 13. Hyperphosphatemia secondary to acute kidney injury. Continue PhosLo 14. Leukocytosis secondary to steroids 15. Severe protein calorie malnutrition. 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 I performed an examination of the patient and discussed their management with the Nurse Practitioner. I have reviewed the Nurse Practitioner's notes and agree with the documented findings and plan of care
[2017-12-06 16:41] LABS: Glucose,Whole Blood 265 mg/dL (75-99)
[2017-12-06 19:47] LABS: Glucose,Whole Blood 331 mg/dL (75-99)
[2017-12-06] MEDS: LEVOTHYROXINE 25 MCG TAB PO SCH (21:54)
[2017-12-07 01:15] VITALS: RESP 16
[2017-12-07 07:35] LABS: Glucose,Whole Blood 85 mg/dL (75-99)
[2017-12-07 07:46] LABS: Basophils % (A) 0 %; Eosinophils # (A) 0.1 k/uL (0-0.7); Eosinophils % (A) 1 %; HCT 25.9 % (39.0-53.0); HGB 8.7 gm/dL (13.0-17.5); Lymphocytes % (A) 9 %; MCH 27.6 pg (25.0-35.0); MCHC 33.8 g/dL (31.0-37.0); MCV 81.7 fL (80.0-100.0); Mean Platelet Volume 7.3; Monocytes % (A) 9 %; Neutrophils # (A) 8.7 k/uL (1.3-7.7); Neutrophils % (A) 80 %; Platelet Count 271 k/uL (150-450); RBC 3.17 m/uL (4.30-5.90); RDW 14.9 % (11.5-15.5); WBC 10.9 k/uL (3.8-10.6)
[2017-12-07 07:55] LABS: Albumin 2.7 g/dL (3.5-5.0); Calcium 6.7 mg/dL (8.4-10.2); Potassium 4.7 mmol/L (3.5-5.1); Total Bilirubin 0.5 mg/dL (0.2-1.3); Total Protein 5.2 g/dL (6.3-8.2)
[2017-12-07] MEDS: INSULIN ASPART 100 UNIT/ML 1 ML 10 ML VIAL SQ SCH ×3 (07:55→18:20)
[2017-12-07] MEDS: SODIUM BICARBONATE TAB 650 MG TAB PO SCH (08:07)
[2017-12-07] MEDS: NIFEdipine XL 90 MG TAB.ER.24 PO SCH (08:08)
[2017-12-07] MEDS: predniSONE 20 MG TAB PO SCH (08:08)
[2017-12-07] MEDS: PANTOPRAZOLE 40 MG TABLET PO SCH (08:08)
[2017-12-07] MEDS: CARVEDILOL 12.5 MG TAB PO SCH ×2 (08:08→17:11)
[2017-12-07] MEDS: HEPARIN SODIUM,PORCINE 5,000 UNIT/ML 1 ML VIAL SQ SCH (08:09)
[2017-12-07] MEDS: CALCIUM ACETATE 667 MG CAP PO SCH ×3 (08:09→18:19)
[2017-12-07] MEDS: INSULN ASP PRT/INSULIN ASPART 100 UNIT/ML 10 ML VIAL SQ SCH ×2 (08:12→18:38)
--- NOTE | 2017-12-07 12:11 | P.PN ---
Subjective Patient is seen in follow-up for acute kidney injury. Creatinine was over 15 on admission and potassium level was 9. He is currently hemodialysis dependent. Patient is awake and alert. Denies chest pain or shortness of breath. Oral intake is good. Patient remains oliguric. Patient has a permacath in place. Creatinine June 2014 and July 2016 was 1.1. 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 On oral prednisone. No active complaints. Vital signs are stable. General: The patient appeared well nourished and normally developed. HEENT: Head exam is unremarkable. Neck is without jugular venous distension. LUNGS: Breath sounds decreased. HEART: Rate and Rhythm are regular. First and second heart sounds normal. No murmurs, rubs or gallops. ABDOMEN: Abdominal exam reveals normal bowel sounds. Non-tender and non- distended. No evidence of peritonitis. EXTREMITITES: No clubbing, cyanosis, or edema. Objective - Vital Signs Vital signs: Vital Signs Temp 98.3 F 12/07/17 06:52 Pulse 60 12/07/17 06:52 Resp 16 12/07/17 06:52 BP 131/66 12/07/17 06:52 Pulse Ox 95 12/07/17 06:52 Intake & Output 12/06/17 12/07/17 12/07/17 18:59 06:59 18:59 Intake Total 250 550 420 Output Total 170 Balance 250 380 420 Weight 125 kg Intake: Oral 250 550 420 Output: Urine 170 Other: Voiding Method Indwelling Catheter Indwelling Catheter Indwelling Catheter # Voids 1 - Labs CBC & Chem 7: 12/07/17 06:42 12/07/17 06:42 Labs: Abnormal Lab Results - Last 24 Hours (Table) 12/06/17 12/06/17 12/06/17 Range/Units 11:56 16:39 19:44 WBC (3.8-10.6) k/uL RBC (4.30-5.90) m/uL Hgb (13.0-17.5) gm/dL Hct (39.0-53.0) % Neutrophils # (1.3-7.7) k/uL Sodium (137-145) mmol/L BUN (9-20) mg/dL Creatinine (0.66-1.25) mg/dL POC Glucose (mg/dL) 221 H 265 H 331 H (75-99) mg/dL Calcium (8.4-10.2) mg/dL AST (17-59) U/L Alkaline Phosphatase (38-126) U/L Total Protein (6.3-8.2) g/dL Albumin (3.5-5.0) g/dL 12/07/17 12/07/17 Range/Units 06:42 06:42 WBC 10.9 H (3.8-10.6) k/uL RBC 3.17 L (4.30-5.90) m/uL Hgb 8.7 L (13.0-17.5) gm/dL Hct 25.9 L (39.0-53.0) % Neutrophils # 8.7 H (1.3-7.7) k/uL Sodium 135 L (137-145) mmol/L BUN 89 H (9-20) mg/dL Creatinine 7.81 H* (0.66-1.25) mg/dL POC Glucose (mg/dL) (75-99) mg/dL Calcium 6.7 L (8.4-10.2) mg/dL AST 13 L (17-59) U/L Alkaline Phosphatase 37 L (38-126) U/L Total Protein 5.2 L (6.3-8.2) g/dL Albumin 2.7 L (3.5-5.0) g/dL Microbiology - Last 24 Hours (Table) 11/22/17 16:50 Urine Culture - Final Urine,Catheterized Assessment and Plan Plan: Assessment: 1. 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 Creatinine 15.6 on admission. Baseline creatinine is near 1. No evidence of hydronephrosis noted on renal ultrasound. Currently hemodialysis dependent. He is noted to have nephrotic range proteinuria. Urine eosinophils negative. MANUELITO, double-stranded DNA antibody, Hepatitis panel negative. SPEP negative. Anti-GBM Ab negative. 2. Severe hyperkalemia secondary to ramipril, acute kidney injury and metabolic acidosis. Improved postdialysis. 3. Metabolic acidosis secondary to acute kidney injury. Patient was also on metformin. 4. Insulin-dependent diabetes mellitus. 5. Pyuria. Urine culture negative. 6. Benign hypertension. Partially due to steroids. Controlled. 7. Hyperphosphatemia secondary to acute kidney injury. 8. Anemia. Iron deficiency noted. Status post 3 doses of IV iron. 9. Volume overload. Improved with ultrafiltration. Plan: Hemodialysis tomorrow. Avoid nephrotoxins. Continue to hold JEANMARIE inhibitor and metformin for now. Maintain current antihypertensives. Continue to monitor renal function and urine output closely. Continue to assess on a day-to-day basis for need for renal replacement therapy. Maintain PhosLo with meals. He is status post 3 doses of IV Solu-Medrol. Maintain prednisone 60 mg daily ( started dec 03). Transfer the patient to [facility] in [place] for plasmapheresis. He will also be started on induction therapy with either rituximab or Cytoxan.
[2017-12-07 12:38] LABS: Glucose,Whole Blood 146 mg/dL (75-99)
--- NOTE | 2017-12-07 13:40 | P.DS ---
Providers Date of admission: 11/22/17 17:16 Expected date of discharge: 12/07/17 Attending physician: Jomar Rangel Consults: 11/22/17 16:36 Consult Physician Routine Consulting Provider: Eugenia Berry Consult Reason/Comments: hyperkalemia, KIRBY Do you want consulting provider notified?: Yes 11/22/17 17:15 Consult Physician Routine Consulting Provider: Alpesh Do Consult Reason/Comments: hyperkalemia Do you want consulting provider notified?: Already Contacted 11/22/17 18:06 Consult Physician Routine Consulting Provider: Phil Mcdaniel Consult Reason/Comments: stat dialysis cath placement Do you want consulting provider notified?: Yes 11/23/17 10:51 Consult Physician Routine Consulting Provider: Pepito Meléndez Consult Reason/Comments: elevated troponin level Do you want consulting provider notified?: Yes Primary care physician: Jomar Juan Carlos [facility] Course: Discharge diagnosis 1. 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 Acute kidney injury with profound hyperkalemia causing profound weakness and EKG changes. Initial potassium 9.0, creatinine 15.61 and bun 109. No evidence of hydronephrosis on ultrasound. Patient had emergent hemodialysis on admission. And is currently hemodialysis dependent. Continue to hold JEANMARIE inhibitor, metformin and nephrotoxic medications. c-ANCA is positive patient completed treatment of IV Solu-Medrol for 3 days. He is currently on oral prednisone 60 mg daily which was started on 12/03/2017. Aspirin has been on hold for kidney biopsy. 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 Nephrology is recommending transfer to [facility] in [place] for plasmapheresis. They are also recommending patient to be started on induction therapy with either rituximab or Cytoxan. 2. Severe Hyperkalemia. Secondary to JEANMARIE inhibitor, acute kidney injury and metabolic acidosis. Improved post dialysis. Initial potassium 9.0. Potassium normal at discharge 3. Elevated troponin. Troponin 0.059. EKG completed in emergency room showing wide QRS rhythm with occasional premature ventricular complexes. Cardiology service consulted. 2-D echo completed showing an EF of 55-60%. Per cardiology services continue with conservative medical approach with mild abnormal cardiac enzymes. Continue Lopressor 4. History of coronary artery disease 5. History of diabetes mellitus type 2. Blood sugars are showing improvement. Discontinue the insulin drip. Resume home insulin Humalog 75/25 with 60 units before breakfast and 54 units before supper with sliding scale coverage. will hold off on restarting the Humalog 10 units before lunch at this time. 6. History of essential hypertension. Continue with current medications hydralazine and metoprolol 7. History of hyperlipidemia 8. History of prostate cancer. Status post prostatectomy 9. Status post aortic valve replacement for aortic stenosis 10. History of hypothyroidism. Synthroid resumed 11. Iron deficiency anemia. Patient has received IV iron 3 doses per nephrology. 12. Metabolic acidosis secondary to acute kidney injury as well as metformin. Now improved 13. Hyperphosphatemia secondary to acute kidney injury. Continue PhosLo 14. Leukocytosis secondary to steroids 15. Severe protein calorie malnutrition. Continue protein supplement Hospital course This is a 82-year-old male patient who presented to the emergency room with complaints of increased weakness that has been occurring for the past 3-4 days. She has a known past medical history of prostate cancer, diabetes mellitus, hyperlipidemia and essential hypertension. Patient states that over the past week he's notes he has not been able to walk as far as he used to be able to. Chest x-ray completed showing rotated expiratory exam. Correlate to exclude pulmonary venous hypertension and interstitial edema. Initial labs showing creatinine of 15.61, bun 109 and potassium 9.0. Nephrology consulted immediately. Hemodialysis access per vascular disease and patient received hemodialysis in the emergency room last night. Patient is currently in the intensive care unit. Potassium now 5.8. Bun 82 and creatinine 11.24. Per nursing staff patient to receive hemodialysis again today per nephrology services. Troponin also elevated at 0.059. CT completed showing wide QRS rhythm and occasional premature ventricular complexes Cardiology services following. Per cardiology patient will be started on aspirin and small dose of metoprolol 12.5. 2-D echo will be ordered. Ultrasound of bladder and kidneys completed showing high no hydronephrosis. 3.5 cm cyst on the right. Dr. Do consulted for critical care consult. Patient currently on bicarb drip along with Cleveprex for blood pressure control. At this time patient states he is feeling improved. Patient denies chest pain or shortness of breath. Patient denies nausea vomiting or diarrhea. Patient denies any urinary burning or frequency. On 11/24/2017 patient is currently resting in bed. Creatinine 10.28 and bun 63. Potassium improving to 5.4. Per nursing staff patient to receive dialysis again today. At this time patient states he's feeling much improved. Patient denies chest pain or shortness breath. Patient denies nausea vomiting or diarrhea. Patient denies any urinary symptoms On 11/26/2017 patient is currently resting in bed. Creatinine remains elevated at 8.54 and bun 45. Potassium 5.0. Patient states he feels improved. at this time patient denies chest pains. Denies nausea. Denies urinary burning or frequency On 11/27/2017 patient is currently resting in bed. Patient denies any complaints at this time. Creatinine increasing to 10.26 and bun 57. Patient did not receive dialysis yesterday. Awaiting nephrology input in regards to hemodialysis today. This time patient denies chest pain or shortness of breath. Patient denies nausea vomiting or diarrhea. Patient denies any urinary burning or frequency 11/28/2017 patient was transferred out of the ICU yesterday. He is currently hemodialysis dependent. He is scheduled for hemodialysis tomorrow. Femoral catheter was not working well yesterday and this morning he was removed and he had a permacath placed. Patient remains oliguric. Nephrology is ordered another dose of IV Lasix. Small amount of urine is bloody in Hoang bag. Patient denies any chest pain or shortness of breath. Denies any nausea or vomiting. Reports having a regular bowel movement. On 11/29/2017 patient is currently resting comfortably in chair. Creatinine 11.06 and bun 68. Patient planning to get hemodialysis today per nephrology. This time patient denies chest pain or shortness breath. Patient denies nausea vomiting or diarrhea. Hoang catheter remains in place with minimum bloody urine output 11/30/2017 patient is scheduled for hemodialysis tomorrow. 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 Nephrology is started patient on IV Solu-Medrol 1 g daily for 3 days. Patient's urine output is still very low. Denies any nausea or vomiting. Denies any chest pain or shortness of breath. Reports having bowel movements. 12/01/2017 patient is scheduled for hemodialysis today. He remains on IV Solu- Medrol for the positive CANCA. Still having very low urine output. Patient having elevated blood sugars secondary to steroids. Blood sugars are in the 300s to 400 this morning. He'll be placed on an insulin drip. Patient denies any chest pain or shortness of breath. Denies any nausea or vomiting. Reports having bowel movements. On 12/02/2017 patient is alert and oriented 3 in no apparent distress he denies any chest pain or shortness of breath there is no fever or chills no headache or dizziness no cough no palpitation no nausea or vomiting no abdominal pain and no urinary symptoms. Patient is maintained on IV Solu- Medrol 1 g daily for 3 days he will be switched to oral prednisone 60 mg daily subsequently. He has oliguric acute renal failure with positive C-ANCA he is scheduled for renal biopsy on Monday. Currently maintained on hemodialysis. On 12/03/2017 patient was seen and examined on the medical floor he is alert and oriented 3 he denies any symptoms at this time, there is no fever or chills no headache or dizziness patient denies any chest pain no shortness of breath no cough no palpitation no nausea or vomiting no abdominal pain no diarrhea, patient has a Hoang catheter in and has a minimal bloody urine output. 12/04/2017 patient was seen and examined he is alert and oriented 3 he denies any complaints at this time there is no fever or chills no headache or dizziness no chest pain no shortness of breath no cough no palpitation no nausea or vomiting no abdominal pain no diarrhea, patient has a Hoang catheter and there is small amount of bloody urine. Patient is scheduled for kidney biopsies this morning, he is scheduled for hemodialysis later in the day. 12/05/2017 patient's kidney biopsies rescheduled for today. There was a scheduling history of yesterday and biopsy could not be completed. Patient underwent hemodialysis yesterday. He is lying in bed comfortably. Denies any chest pain or shortness of breath. Denies any nausea or vomiting. Had a bowel movement yesterday. Still very low urine output. Patient's diet will be restarted again after biopsy done this afternoon. Therefore his home insulin will be restarted at supper time. 12/06/2017 patient is currently receiving hemodialysis. Patient did undergo kidney biopsy yesterday. Results pending. At this time patient denies chest pain or shortness breath. Denies any nausea or vomiting. Urine output remains minimal 12/07/2017 patient has had a prolonged hospitalization due to his acute kidney injury workup. Patient has been maintained on hemodialysis. Kidney biopsy results came back today showing necrotizing and crescentic glomerulonephritis. Nephrology is recommending patient be transferred to [facility] in [place] for plasmapheresis. Also, He will also be started on induction therapy with either rituximab or Cytoxan per nephrology. Patient also had some yellow penile discharge noted. This has been culture. Patient is medically stable to transfer to [facility] in [place]. Dr. Hicks, our custom garment designer, will be contacting the admitting physician at [facility]. I performed an examination of the patient and discussed their management with the physician Student Records Specialist. I have reviewed the Physician Student Records Specialist's notes and agree with the documented findings and plan of care Patient Condition at Discharge: Stable Plan - Discharge Summary Discharge Rx Participant: No New Discharge Prescriptions: New Calcium Acetate [PhosLo] 667 mg PO TID-W/MEALS cap Carvedilol [Coreg*] 12.5 mg PO BID-W/MEALS tab NIFEdipine XL [Procardia XL] 90 mg PO DAILY tab.er.24 predniSONE 60 mg PO DAILY tab Sodium Bicarbonate Tab 650 mg PO BID tab Continue Levothyroxine Sodium [Synthroid] 25 mcg PO HS Simvastatin [Zocor] 20 mg PO HS Insulin NPL/Insulin Lispro [humaLOG MIX 75-25 VIAL] 60 unit SQ AC-BRKFST Insulin NPL/Insulin Lispro [humaLOG MIX 75-25 VIAL] 54 unit SQ AC-SUPPER HYDROcodone/APAP 5-325MG [Sanderson 5-325] 1 - 2 tab PO Q4-6H PRN #90 tab PRN Reason: Pain Multivitamins, Thera [Multivitamin (formulary)] 1 tab PO DAILY Ergocalciferol (Vitamin D2) [Vitamin D2] 50,000 unit PO Q7D Discontinued metFORMIN HCL 1,000 mg PO BID #0 INSULIN LISPRO (humaLOG) [humaLOG] 10 unit SQ AC-LUNCH Ramipril [Altace] 10 mg PO DAILY Aspirin 325 mg PO DAILY Discharge Medication List Levothyroxine Sodium [Synthroid] 25 mcg PO HS 05/05/14 [History] Simvastatin [Zocor] 20 mg PO HS 05/05/14 [History] Insulin NPL/Insulin Lispro [humaLOG MIX 75-25 VIAL] 54 unit SQ AC-SUPPER 06/27/ 17 [History] Insulin NPL/Insulin Lispro [humaLOG MIX 75-25 VIAL] 60 unit SQ AC-BRKFST [History] HYDROcodone/APAP 5-325MG [Sanderson 5-325] 1 - 2 tab PO Q4-6H PRN #90 tab 08/05/16 [ Rx] Ergocalciferol (Vitamin D2) [Vitamin D2] 50,000 unit PO Q7D 11/22/17 [History] Multivitamins, Thera [Multivitamin (formulary)] 1 tab PO DAILY 11/22/17 [History ] Calcium Acetate [PhosLo] 667 mg PO TID-W/MEALS cap 12/07/17 [Rx] Carvedilol [Coreg*] 12.5 mg PO BID-W/MEALS tab 12/07/17 [Rx] NIFEdipine XL [Procardia XL] 90 mg PO DAILY tab.er.24 12/07/17 [Rx] Sodium Bicarbonate Tab 650 mg PO BID tab 12/07/17 [Rx] predniSONE 60 mg PO DAILY tab 12/07/17 [Rx] Follow up Appointment(s)/Referral(s): Jomar Rangel MD [Primary Care Provider] - 1 Week Activity/Diet/Wound Care/Special Instructions: Hemodialysis - [facility] @3p.m. - first treatment Wednesday 12/06 - report at 2:30 p.m. Transfer patient to [facility] Discharge Disposition: OTHER INSTITUTION NOT DEFINED
[2017-12-07 16:32] VITALS: BP 149/74; PULSE 62; TEMP 97.5
[2017-12-07 17:16] LABS: Glucose,Whole Blood 245 mg/dL (75-99)
== END 2017-12-07 19:28 | disposition short-term general hospital (02) | DRG 698 ==
LOC: EC 14:34 → 2SICU 17:16 → 4SSUR 11-28 03:57
PROVIDERS: ADMIT Internal Medicine; ATTEND Internal Medicine
PROC: 5A1D70Z Performance of Urinary Filtration, Intermittent, Less than 6 Hours Per Day (ICD-10-PCS; principal; 2017-11-22)
PROC: 06HY33Z Insertion of Infusion Device into Lower Vein, Percutaneous Approach (ICD-10-PCS; 2017-11-23)
PROC: 02H633Z Insertion of Infusion Device into Right Atrium, Percutaneous Approach (ICD-10-PCS; 2017-11-28)
PROC: 06PYX3Z Removal of Infusion Device from Lower Vein, External Approach (ICD-10-PCS; 2017-11-28 08:11)
PROC: 0TB03ZX Excision of Right Kidney, Percutaneous Approach, Diagnostic (ICD-10-PCS; 2017-12-05)
DX: N05.7 Unspecified nephritic syndrome with diffuse crescentic glomerulonephritis (principal); E43 Unspecified severe protein-calorie malnutrition; E87.2 Acidosis; N39.0 Urinary tract infection, site not specified; N17.0 Acute kidney failure with tubular necrosis; E87.5 Hyperkalemia; E11.65 Type 2 diabetes mellitus with hyperglycemia; E86.1 Hypovolemia; E87.70 Fluid overload, unspecified; E83.39 Other disorders of phosphorus metabolism; D50.9 Iron deficiency anemia, unspecified; E03.9 Hypothyroidism, unspecified; E78.5 Hyperlipidemia, unspecified; I25.10 Atherosclerotic heart disease of native coronary artery without angina pectoris; I49.3 Ventricular premature depolarization; I77.89 Other specified disorders of arteries and arterioles; T38.0X5A Adverse effect of glucocorticoids and synthetic analogues, initial encounter; T46.4X5A Adverse effect of angiotensin-converting-enzyme inhibitors, initial encounter; T39.395A Adverse effect of other nonsteroidal anti-inflammatory drugs [NSAID], initial encounter; I10 Essential (primary) hypertension; E66.9 Obesity, unspecified; R19.7 Diarrhea, unspecified; D72.829 Elevated white blood cell count, unspecified; R74.8 Abnormal levels of other serum enzymes; R77.9 Abnormality of plasma protein, unspecified; R36.9 Urethral discharge, unspecified; Z68.36 Body mass index [BMI] 36.0-36.9, adult; Z79.4 Long term (current) use of insulin; Z79.82 Long term (current) use of aspirin; Z79.899 Other long term (current) drug therapy; Z96.651 Presence of right artificial knee joint; Z95.2 Presence of prosthetic heart valve; Z90.79 Acquired absence of other genital organ(s); Z86.010 Personal history of colon polyps; Z85.46 Personal history of malignant neoplasm of prostate; Z98.42 Cataract extraction status, left eye; Z98.41 Cataract extraction status, right eye; Z96.1 Presence of intraocular lens; Z82.49 Family history of ischemic heart disease and other diseases of the circulatory system
CPT/HCPCS: 36415; 36558; 51702; 71045; 76770; 76937; 77001; 77012; 80048; 80053; 81001; 82550; 82553; 82570; 82728; 83036; 83516; 83540; 83550; 83605; 83735; 84100; 84156; 84165; 84300; 84443; 84484; 85025; 85049; 85610; 85730; 86038; 86160; 86162; 86225; 86255; 86334; 86335; 86704; 86706; 86850; 86900; 86901; 87040; 87070; 87086; 87205; 87324; 87340; 90935; 93005; 93306; 94644; 94760; 96360; 96365; 96375; 96376; 99285

== ENCOUNTER 2017-12-22 06:27 | Emergency (ER) | payer MEDICARE ==
[2017-12-22 07:01] LABS: Glucose,Whole Blood 120 mg/dL (75-99)
--- NOTE | 2017-12-22 09:39 | ED ---
Recheck HPI - General Chief Complaint: Recheck/Abnormal Lab/Rx Stated Complaint: Hypoglycemia Time Seen by Provider: 12/22/17 09:00 Source: patient, EMS, RN notes reviewed Mode of arrival: EMS Limitations: altered mental status - History of Present Illness Initial Comments: This 82-year-old male who is a dialysis patient was found to be lethargic this morning found have a low blood sugar at the longterm he resides at was 36. He was given 1 g of glucagon IM it was 120 upon arrival here. Later it was found to be 56. He complains no chest pain first breath fevers chills sweats he dialyzed on Monday and Monday. He did have dialysis yesterday he did demonstrate slight cough no other modifying factors at this time. No recent changes in medications other known. - Related Data Home Medications Medication Instructions Recorded Confirmed Levothyroxine Sodium [Synthroid] 25 mcg PO HS 05/05/14 12/22/17 Simvastatin [Zocor] 20 mg PO HS 05/05/14 12/22/17 Insulin NPL/Insulin Lispro 54 unit SQ AC-SUPPER 08/02/16 12/22/17 [humaLOG MIX 75-25 VIAL] Insulin NPL/Insulin Lispro 60 unit SQ AC-BRKFST 08/02/16 12/22/17 [humaLOG MIX 75-25 VIAL] Ergocalciferol (Vitamin D2) 50,000 unit PO Q7D 11/22/17 12/22/17 [Vitamin D2] Ramipril [Altace] 10 mg PO DAILY 12/22/17 12/22/17 metFORMIN HCL [Glucophage] 1,000 mg PO BID 12/22/17 12/22/17 Previous Rx's Medication Instructions Recorded Amoxicillin/Potassium Clav 1 tab PO Q12HR #14 tab 12/22/17 [Augmentin 875-125 Tablet] Allergies Allergy/AdvReac Type Severity Reaction Status Date / Time No Known Allergies Allergy Verified 12/22/17 11:55 Review of Systems ROS Statement: Those systems with pertinent positive or pertinent negative responses have been documented in the HPI. ROS Other: All systems not noted in ROS Statement are negative. Past Medical History Past Medical History: Cancer, Diabetes Mellitus, Hyperlipidemia, Hypertension, Prostate Disorder, Thyroid Disorder Additional Past Medical History / Comment(s): AORTIC STENOSIS, prostate cancer, past colon polyps History of Any Multi-Drug Resistant Organisms: None Reported Past Surgical History: Cardiac Valve Replacement, Heart Catheterization, Hernia Repair, Prostate Surgery, Tonsillectomy Additional Past Surgical History / Comment(s): COLON POLYPS. ariel cataracts, upper dental implants,prostatectomy, hernia repair. HEART CATH ON 05/06/2014. total rt knee replacement. 06-16-14 aortic valve replacement(tissue valve) Past Anesthesia/Blood Transfusion Reactions: No Reported Reaction Past Psychological History: No Psychological Hx Reported Smoking Status: Never smoker Past Alcohol Use History: None Reported Past Drug Use History: None Reported - Past Family History Father Family Medical History: No Reported History Additional Family Medical History / Comment(s): age 92.5 years old- from old age Mother Family Medical History: Myocardial Infarction (IN) General Exam - General Exam Comments Initial Comments: This is a well-developed well-nourished awake alert oriented times 3 male Limitations: altered mental status General appearance: alert, in no apparent distress Head exam: Present: atraumatic, normocephalic, normal inspection Eye exam: Present: normal appearance, PERRL, EOMI. Absent: scleral icterus, conjunctival injection, periorbital swelling ENT exam: Present: mucous membranes dry Neck exam: Present: normal inspection. Absent: tenderness, meningismus, lymphadenopathy Respiratory exam: Present: normal lung sounds bilaterally, other (Dialysis catheter seen in the right upper anterior chest wall.). Absent: respiratory distress, wheezes, rales, rhonchi, stridor Cardiovascular Exam: Present: regular rate, normal rhythm, normal heart sounds. Absent: systolic murmur, diastolic murmur, rubs, gallop, clicks GI/Abdominal exam: Present: soft, normal bowel sounds. Absent: distended, tenderness, guarding, rebound, rigid Extremities exam: Present: normal inspection, full ROM, normal capillary refill. Absent: tenderness, pedal edema, joint swelling, calf tenderness Back exam: Present: normal inspection Neurological exam: Present: alert, oriented X3, CN II-XII intact Psychiatric exam: Present: normal affect, normal mood Skin exam: Present: warm, dry, intact, normal color. Absent: rash Course Vital Signs 12/22/17 12/22/17 06:42 12:22 Pulse Rate 59 L 69 Respiratory 19 16 Rate Blood Pressure 167/72 156/77 O2 Sat by Pulse 96 96 Oximetry Medical Decision Making - Medical Decision Making I did discuss findings with the patient family members along with Dr. Newberry and 2 occasions. Patient demonstrates no fevers chills no sweats no evidence of infectious process he does have elevated white blood cell count with a shift. His precaution patient be placed on antibiotics. - Lab Data Result diagrams: 12/22/17 11:00 12/22/17 11:00 Lab Results 12/22/17 12/22/17 12/22/17 Range/Units 06:54 09:35 11:00 WBC 14.6 H (3.8-10.6) k/uL RBC 3.31 L (4.30-5.90) m/uL Hgb 9.1 L (13.0-17.5) gm/dL Hct 28.1 L (39.0-53.0) % MCV 84.7 (80.0-100.0) fL MCH 27.6 (25.0-35.0) pg MCHC 32.6 (31.0-37.0) g/dL RDW 15.6 H (11.5-15.5) % Plt Count 250 (150-450) k/uL Neutrophils % 91 % Lymphocytes % 2 % Monocytes % 4 % Eosinophils % 1 % Basophils % 0 % Neutrophils # 13.3 H (1.3-7.7) k/uL Lymphocytes # 0.4 L (1.0-4.8) k/uL Monocytes # 0.6 (0-1.0) k/uL Eosinophils # 0.2 (0-0.7) k/uL Basophils # 0.0 (0-0.2) k/uL Sodium (137-145) mmol/L Potassium (3.5-5.1) mmol/L Chloride (98-107) mmol/L Carbon Dioxide (22-30) mmol/L Anion Gap mmol/L BUN (9-20) mg/dL Creatinine (0.66-1.25) mg/dL Est GFR (CKD-EPI)AfAm (>60 ml/min/1.73 sqM) Est GFR (CKD-EPI)NonAf (>60 ml/min/1.73 sqM) Glucose (74-99) mg/dL POC Glucose (mg/dL) 120 H 57 L (75-99) mg/dL POC Glu Gang Ripsaw Operator ID Allison Pan Meghan Calcium (8.4-10.2) mg/dL Magnesium (1.6-2.3) mg/dL Total Bilirubin (0.2-1.3) mg/dL AST (17-59) U/L ALT (21-72) U/L Alkaline Phosphatase (38-126) U/L Total Protein (6.3-8.2) g/dL Albumin (3.5-5.0) g/dL 12/22/17 12/22/17 Range/Units 11:00 12:18 WBC (3.8-10.6) k/uL RBC (4.30-5.90) m/uL Hgb (13.0-17.5) gm/dL Hct (39.0-53.0) % MCV (80.0-100.0) fL MCH (25.0-35.0) pg MCHC (31.0-37.0) g/dL RDW (11.5-15.5) % Plt Count (150-450) k/uL Neutrophils % % Lymphocytes % % Monocytes % % Eosinophils % % Basophils % % Neutrophils # (1.3-7.7) k/uL Lymphocytes # (1.0-4.8) k/uL Monocytes # (0-1.0) k/uL Eosinophils # (0-0.7) k/uL Basophils # (0-0.2) k/uL Sodium 137 (137-145) mmol/L Potassium 4.4 (3.5-5.1) mmol/L Chloride 97 L (98-107) mmol/L Carbon Dioxide 28 (22-30) mmol/L Anion Gap 12 mmol/L BUN 45 H (9-20) mg/dL Creatinine 6.05 H (0.66-1.25) mg/dL Est GFR (CKD-EPI)AfAm 9 (>60 ml/min/1.73 sqM) Est GFR (CKD-EPI)NonAf 8 (>60 ml/min/1.73 sqM) Glucose 75 (74-99) mg/dL POC Glucose (mg/dL) 112 H (75-99) mg/dL POC Glu Gang Ripsaw Operator ID Cleopatra Meza Calcium 7.6 L (8.4-10.2) mg/dL Magnesium 1.9 (1.6-2.3) mg/dL Total Bilirubin 0.5 (0.2-1.3) mg/dL AST 13 L (17-59) U/L ALT 24 (21-72) U/L Alkaline Phosphatase 33 L (38-126) U/L Total Protein 5.2 L (6.3-8.2) g/dL Albumin 3.2 L (3.5-5.0) g/dL - Radiology Data Radiology results: report reviewed (Evidence of atelectasis versus early infiltrate small effusion please see the complete report), image reviewed Disposition Clinical Impression: Multiple episodes of hypoglycemia, Leukocytosis, Chronic renal failure syndrome Disposition: HOME SELF-CARE Condition: Good Instructions: Chronic Kidney Disease (ED), Leukocytosis (ED), Hypoglycemia in a Person with Diabetes (ED) Prescriptions: Amoxicillin/Potassium Clav [Augmentin 875-125 Tablet] 1 tab PO Q12HR #14 tab Is patient prescribed a controlled substance at d/c from ED?: No Referrals: Jomar Rangel MD [Primary Care Provider] - 1-2 days
[2017-12-22 09:58] LABS: Glucose,Whole Blood 57 mg/dL (75-99)
--- NOTE | 2017-12-22 10:04 | XR ---
EXAMINATION TYPE: XR chest 2V DATE OF EXAM: 12/22/2017 COMPARISON: Chest x-ray November 28, 2017 HISTORY: Cough and shortness of breath. TECHNIQUE: Frontal and lateral views of the chest are obtained. FINDINGS: There is old healed fracture deformity left mid clavicle redemonstrated. Overlying sternal wires and mediastinal clips are seen. There is right internal jugular dual-lumen dialysis catheter. There is cardiomegaly redemonstrated. There is new small left pleural effusion and associated left ba silar atelectasis and/or infiltrate. There is background chronic parenchymal change with suspected ne w mild central vascular congestion. IMPRESSION: Chronic parenchymal changes and cardiomegaly with suspected new mild central vascular co ngestion, correlate for fluid overload state. In addition there is new small left pleural effusion an d associated left basilar atelectasis and/or infiltrate noted.
[2017-12-22 11:16] LABS: Basophils % (A) 0 %; Eosinophils # (A) 0.2 k/uL (0-0.7); Eosinophils % (A) 1 %; HCT 28.1 % (39.0-53.0); HGB 9.1 gm/dL (13.0-17.5); Lymphocytes # (A) 0.4 k/uL (1.0-4.8); Lymphocytes % (A) 2 %; MCH 27.6 pg (25.0-35.0); MCHC 32.6 g/dL (31.0-37.0); MCV 84.7 fL (80.0-100.0); Mean Platelet Volume 6.4; Monocytes # (A) 0.6 k/uL (0-1.0); Monocytes % (A) 4 %; Neutrophils # (A) 13.3 k/uL (1.3-7.7); Neutrophils % (A) 91 %; Platelet Count 250 k/uL (150-450); RBC 3.31 m/uL (4.30-5.90); RDW 15.6 % (11.5-15.5); WBC 14.6 k/uL (3.8-10.6)
[2017-12-22 11:25] LABS: Albumin 3.2 g/dL (3.5-5.0); Calcium 7.6 mg/dL (8.4-10.2); Magnesium 1.9 mg/dL (1.6-2.3); Potassium 4.4 mmol/L (3.5-5.1); Total Bilirubin 0.5 mg/dL (0.2-1.3); Total Protein 5.2 g/dL (6.3-8.2)
[2017-12-22 12:19] LABS: Glucose,Whole Blood 112 mg/dL (75-99)
[2017-12-22 12:24] VITALS: BP 156/77; PULSE 69; RESP 16
[2017-12-22] MEDS ORDERED: AMOXIC-POT CLAV 875-125MG 1 EACH TAB PO STA (12:36)
== END 2017-12-22 12:54 | disposition home or self-care (01) ==
LOC: EC 06:27
DX: E11.649 Type 2 diabetes mellitus with hypoglycemia without coma (principal); D72.829 Elevated white blood cell count, unspecified; E11.22 Type 2 diabetes mellitus with diabetic chronic kidney disease; I12.9 Hypertensive chronic kidney disease with stage 1 through stage 4 chronic kidney disease, or unspecified chronic kidney disease; N18.9 Chronic kidney disease, unspecified; E78.5 Hyperlipidemia, unspecified; E07.9 Disorder of thyroid, unspecified; N42.9 Disorder of prostate, unspecified; Z85.46 Personal history of malignant neoplasm of prostate; Z79.4 Long term (current) use of insulin; Z79.899 Other long term (current) drug therapy; Z95.2 Presence of prosthetic heart valve; Z95.818 Presence of other cardiac implants and grafts; Z96.651 Presence of right artificial knee joint; Z99.2 Dependence on renal dialysis
CPT/HCPCS: 36415; 71046; 80053; 83735; 85025; 99285

== ENCOUNTER 2017-12-23 05:34 | Observation (INO) | payer MEDICARE ==
--- NOTE | 2017-12-23 05:56 | ED ---
Recheck HPI - General Chief Complaint: Recheck/Abnormal Lab/Rx Stated Complaint: hypoglycemia Time Seen by Provider: 12/23/17 05:52 Source: EMS, RN notes reviewed, old records reviewed Mode of arrival: EMS Limitations: no limitations, physical limitation - History of Present Illness Initial Comments: This is a 82-year-old male to the ER for evaluation of abnormal lab tests low blood sugar. Patient has history of diabetes on insulin. History of low blood sugar. This is secondarily symptoms. Denies fevers denies diarrhea. Continue all medications as he is given them. Patient's tolerating oral intake currently. MD Complaint: abnormal lab (low BS) -: hour(s) Returns Today for: other (low blood sugar) Symptoms Since Prior Visit: no new symptoms Context: called for abnormal lab result (Have blood sugar checked this morning) Associated Symptoms: none Treatments Prior to Arrival: IV/IO (Patient given IM glucagon) - Related Data Home Medications Medication Instructions Recorded Confirmed Levothyroxine Sodium [Synthroid] 25 mcg PO HS 05/05/14 12/23/17 Simvastatin [Zocor] 20 mg PO HS 05/05/14 12/23/17 Insulin NPL/Insulin Lispro 54 unit SQ AC-SUPPER 08/02/16 12/23/17 [humaLOG MIX 75-25 VIAL] Insulin NPL/Insulin Lispro 60 unit SQ AC-BRKFST 08/02/16 12/23/17 [humaLOG MIX 75-25 VIAL] Ergocalciferol (Vitamin D2) 50,000 unit PO Q7D 11/22/17 12/23/17 [Vitamin D2] Ramipril [Altace] 10 mg PO DAILY 12/22/17 12/23/17 metFORMIN HCL [Glucophage] 1,000 mg PO BID 12/22/17 12/22/17 Previous Rx's Medication Instructions Recorded Amoxicillin/Potassium Clav 1 tab PO Q12HR #14 tab 12/22/17 [Augmentin 875-125 Tablet] Allergies Allergy/AdvReac Type Severity Reaction Status Date / Time No Known Allergies Allergy Verified 12/23/17 05:48 Review of Systems ROS Statement: Those systems with pertinent positive or pertinent negative responses have been documented in the HPI. ROS Other: All systems not noted in ROS Statement are negative. Past Medical History Past Medical History: Cancer, Diabetes Mellitus, Hyperlipidemia, Hypertension, Prostate Disorder, Thyroid Disorder Additional Past Medical History / Comment(s): AORTIC STENOSIS, prostate cancer, past colon polyps History of Any Multi-Drug Resistant Organisms: None Reported Past Surgical History: Cardiac Valve Replacement, Heart Catheterization, Hernia Repair, Prostate Surgery, Tonsillectomy Additional Past Surgical History / Comment(s): COLON POLYPS. ariel cataracts, upper dental implants,prostatectomy, hernia repair. HEART CATH ON 05/06/2014. total rt knee replacement. 06-16-14 aortic valve replacement(tissue valve) Past Anesthesia/Blood Transfusion Reactions: No Reported Reaction Past Psychological History: No Psychological Hx Reported Smoking Status: Never smoker Past Alcohol Use History: None Reported Past Drug Use History: None Reported - Past Family History Father Family Medical History: No Reported History Additional Family Medical History / Comment(s): age 92.5 years old- from old age Mother Family Medical History: Myocardial Infarction ([place]) General Exam Limitations: no limitations, physical limitation General appearance: alert, in no apparent distress Head exam: Present: atraumatic, normocephalic, normal inspection Eye exam: Present: normal appearance, PERRL, EOMI. Absent: scleral icterus, conjunctival injection, periorbital swelling ENT exam: Present: normal exam, mucous membranes moist Neck exam: Present: normal inspection. Absent: tenderness, meningismus, lymphadenopathy Respiratory exam: Present: normal lung sounds bilaterally. Absent: respiratory distress, wheezes, rales, rhonchi, stridor Cardiovascular Exam: Present: regular rate, normal rhythm, normal heart sounds. Absent: systolic murmur, diastolic murmur, rubs, gallop, clicks GI/Abdominal exam: Present: soft, normal bowel sounds. Absent: distended, tenderness, guarding, rebound, rigid Extremities exam: Present: normal inspection, full ROM, normal capillary refill. Absent: tenderness, pedal edema, joint swelling, calf tenderness Back exam: Present: normal inspection Neurological exam: Present: alert, oriented X3, CN II-XII intact Psychiatric exam: Present: normal affect, normal mood Skin exam: Present: warm, dry, intact, normal color. Absent: rash Course Vital Signs 12/23/17 12/23/17 05:43 06:01 Temperature 97.5 F L 97.9 F Pulse Rate 74 77 Respiratory 17 18 Rate Blood Pressure 170/73 154/64 O2 Sat by Pulse 95 94 L Oximetry - Reevaluation(s) Reevaluation #1: 12/23/17 06:32 Patient is awake and alert, medical record is reviewed, patient's tolerating oral intake, patient is fed here in the emergency room Medical Decision Making - Medical Decision Making 82-year-old male the ER for evaluation of hypoglycemia. Patient given food here in the ER, patient can be discharged home Disposition Clinical Impression: Insulin dependent diabetes mellitus, Hypoglycemia Disposition: HOME SELF-CARE Condition: Good Instructions: Hypoglycemia in a Person with Diabetes (ED) Is patient prescribed a controlled substance at d/c from ED?: No Referrals: Jomar Rangel MD [Primary Care Provider] - 1-2 days
[2017-12-23 06:36] LABS: Glucose,Whole Blood 86 mg/dL (75-99)
[2017-12-23] MEDS ORDERED: SODIUM CHLORIDE 0.9% 500 ML 500 ML IV STA (07:00)
[2017-12-23] MEDS ORDERED: SODIUM CHLORIDE 0.9% 1,000 ML IV STA (07:00)
[2017-12-23] MEDS ORDERED: ONDANSETRON 4 MG/2 ML VIAL IVP STA (07:00)
--- NOTE | 2017-12-23 07:03 | ED ---
Medical Decision Making - Lab Data Result diagrams: 12/23/17 05:45 12/23/17 05:45 - Medical Decision Making 82-year-old male again to ER for evaluation of hypoglycemia. Patient significant bowel movement prior to discharge, although he is normal blood sugar currently is having significant bowel movement with foul-smelling stool. Patient will not have lab values ran and tested for C. diff, palliative stools are going on for about a month (Ced Castillo) Patient was endorsed to me at our shift change pending laboratory work. I did discuss the case with Dr. Rangel, patient will be admitted for evaluation of recurrent hypoglycemia and diarrhea (Alpesh Figueredo) - Lab Data Lab Results 12/23/17 12/23/17 12/23/17 Range/Units 05:40 05:45 05:45 WBC 16.8 H (3.8-10.6) k/uL RBC 3.36 L (4.30-5.90) m/uL Hgb 9.3 L (13.0-17.5) gm/dL Hct 28.4 L (39.0-53.0) % MCV 84.5 (80.0-100.0) fL MCH 27.7 (25.0-35.0) pg MCHC 32.8 (31.0-37.0) g/dL RDW 15.9 H (11.5-15.5) % Plt Count 260 (150-450) k/uL Neutrophils % 93 % Lymphocytes % 2 % Monocytes % 4 % Eosinophils % 1 % Basophils % 0 % Neutrophils # 15.6 H (1.3-7.7) k/uL Lymphocytes # 0.3 L (1.0-4.8) k/uL Monocytes # 0.7 (0-1.0) k/uL Eosinophils # 0.1 (0-0.7) k/uL Basophils # 0.0 (0-0.2) k/uL PT (9.0-12.0) sec INR (<1.2) APTT (22.0-30.0) sec Sodium (137-145) mmol/L Potassium (3.5-5.1) mmol/L Chloride (98-107) mmol/L Carbon Dioxide (22-30) mmol/L Anion Gap mmol/L BUN (9-20) mg/dL Creatinine (0.66-1.25) mg/dL Est GFR (CKD-EPI)AfAm (>60 ml/min/1.73 sqM) Est GFR (CKD-EPI)NonAf (>60 ml/min/1.73 sqM) Glucose (74-99) mg/dL POC Glucose (mg/dL) 86 (75-99) mg/dL POC Glu Bag Repairer ID Ho Boyer Plasma Lactic Acid Wilber (0.7-2.0) mmol/L Calcium (8.4-10.2) mg/dL Phosphorus (2.5-4.5) mg/dL Magnesium (1.6-2.3) mg/dL Total Bilirubin (0.2-1.3) mg/dL AST (17-59) U/L ALT (21-72) U/L Alkaline Phosphatase (38-126) U/L Total Creatine Kinase 31 L (55-170) U/L CK-MB (CK-2) 1.4 (0.0-2.4) ng/mL CK-MB (CK-2) Rel Index 4.5 Troponin I 0.034 (0.000-0.034) ng/mL Total Protein (6.3-8.2) g/dL Albumin (3.5-5.0) g/dL Urine Color Urine Appearance (Clear) Urine pH (5.0-8.0) Ur Specific [place] (1.001-1.035) Urine Protein (Negative) Urine Glucose (UA) (Negative) Urine Ketones (Negative) Urine Blood (Negative) Urine Nitrite (Negative) Urine Bilirubin (Negative) Urine Urobilinogen (<2.0) mg/dL Ur Leukocyte Esterase (Negative) Urine RBC (0-5) /hpf Urine WBC (0-5) /hpf C. difficile (EIA) Intrp (Negative) 12/23/17 12/23/17 12/23/17 Range/Units 05:45 06:50 08:00 WBC (3.8-10.6) k/uL RBC (4.30-5.90) m/uL Hgb (13.0-17.5) gm/dL Hct (39.0-53.0) % MCV (80.0-100.0) fL MCH (25.0-35.0) pg MCHC (31.0-37.0) g/dL RDW (11.5-15.5) % Plt Count (150-450) k/uL Neutrophils % % Lymphocytes % % Monocytes % % Eosinophils % % Basophils % % Neutrophils # (1.3-7.7) k/uL Lymphocytes # (1.0-4.8) k/uL Monocytes # (0-1.0) k/uL Eosinophils # (0-0.7) k/uL Basophils # (0-0.2) k/uL PT 10.5 (9.0-12.0) sec INR 1.1 (<1.2) APTT 25.1 (22.0-30.0) sec Sodium 138 (137-145) mmol/L Potassium 4.7 (3.5-5.1) mmol/L Chloride 99 (98-107) mmol/L Carbon Dioxide 27 (22-30) mmol/L Anion Gap 12 mmol/L BUN 53 H (9-20) mg/dL Creatinine 7.50 H* (0.66-1.25) mg/dL Est GFR (CKD-EPI)AfAm 7 (>60 ml/min/1.73 sqM) Est GFR (CKD-EPI)NonAf 6 (>60 ml/min/1.73 sqM) Glucose 68 L (74-99) mg/dL POC Glucose (mg/dL) (75-99) mg/dL POC Glu Bag Repairer ID Plasma Lactic Acid Wilber (0.7-2.0) mmol/L Calcium 7.7 L (8.4-10.2) mg/dL Phosphorus 5.0 H (2.5-4.5) mg/dL Magnesium 2.0 (1.6-2.3) mg/dL Total Bilirubin 0.4 (0.2-1.3) mg/dL AST 14 L (17-59) U/L ALT 23 (21-72) U/L Alkaline Phosphatase 36 L (38-126) U/L Total Creatine Kinase (55-170) U/L CK-MB (CK-2) (0.0-2.4) ng/mL CK-MB (CK-2) Rel Index Troponin I (0.000-0.034) ng/mL Total Protein 5.3 L (6.3-8.2) g/dL Albumin 3.3 L (3.5-5.0) g/dL Urine Color Urine Appearance (Clear) Urine pH (5.0-8.0) Ur Specific [place] (1.001-1.035) Urine Protein (Negative) Urine Glucose (UA) (Negative) Urine Ketones (Negative) Urine Blood (Negative) Urine Nitrite (Negative) Urine Bilirubin (Negative) Urine Urobilinogen (<2.0) mg/dL Ur Leukocyte Esterase (Negative) Urine RBC (0-5) /hpf Urine WBC (0-5) /hpf C. difficile (EIA) Intrp Negative (Negative) 12/23/17 12/23/17 Range/Units 08:00 11:06 WBC (3.8-10.6) k/uL RBC (4.30-5.90) m/uL Hgb (13.0-17.5) gm/dL Hct (39.0-53.0) % MCV (80.0-100.0) fL MCH (25.0-35.0) pg MCHC (31.0-37.0) g/dL RDW (11.5-15.5) % Plt Count (150-450) k/uL Neutrophils % % Lymphocytes % % Monocytes % % Eosinophils % % Basophils % % Neutrophils # (1.3-7.7) k/uL Lymphocytes # (1.0-4.8) k/uL Monocytes # (0-1.0) k/uL Eosinophils # (0-0.7) k/uL Basophils # (0-0.2) k/uL PT (9.0-12.0) sec INR (<1.2) APTT (22.0-30.0) sec Sodium (137-145) mmol/L Potassium (3.5-5.1) mmol/L Chloride (98-107) mmol/L Carbon Dioxide (22-30) mmol/L Anion Gap mmol/L BUN (9-20) mg/dL Creatinine (0.66-1.25) mg/dL Est GFR (CKD-EPI)AfAm (>60 ml/min/1.73 sqM) Est GFR (CKD-EPI)NonAf (>60 ml/min/1.73 sqM) Glucose (74-99) mg/dL POC Glucose (mg/dL) (75-99) mg/dL POC Glu Bag Repairer ID Plasma Lactic Acid Wilber 0.6 L (0.7-2.0) mmol/L Calcium (8.4-10.2) mg/dL Phosphorus (2.5-4.5) mg/dL Magnesium (1.6-2.3) mg/dL Total Bilirubin (0.2-1.3) mg/dL AST (17-59) U/L ALT (21-72) U/L Alkaline Phosphatase (38-126) U/L Total Creatine Kinase (55-170) U/L CK-MB (CK-2) (0.0-2.4) ng/mL CK-MB (CK-2) Rel Index Troponin I (0.000-0.034) ng/mL Total Protein (6.3-8.2) g/dL Albumin (3.5-5.0) g/dL Urine Color Yellow Urine Appearance Clear (Clear) Urine pH 8.0 (5.0-8.0) Ur Specific [place] 1.010 (1.001-1.035) Urine Protein 3+ H (Negative) Urine Glucose (UA) Negative (Negative) Urine Ketones Negative (Negative) Urine Blood Moderate H (Negative) Urine Nitrite Negative (Negative) Urine Bilirubin Negative (Negative) Urine Urobilinogen <2.0 (<2.0) mg/dL Ur Leukocyte Esterase Negative (Negative) Urine RBC 171 H (0-5) /hpf Urine WBC 2 (0-5) /hpf C. difficile (EIA) Intrp (Negative) Disposition Clinical Impression: Insulin dependent diabetes mellitus, Hypoglycemia, Diarrhea Disposition: ADMITTED IP TO THIS HOSP Condition: Stable Instructions: Hypoglycemia in a Person with Diabetes (ED) Referrals: Jomar Rangel MD [Primary Care Provider] - 1-2 days
[2017-12-23 07:41] LABS: Basophils % (A) 0 %; Eosinophils # (A) 0.1 k/uL (0-0.7); Eosinophils % (A) 1 %; HCT 28.4 % (39.0-53.0); HGB 9.3 gm/dL (13.0-17.5); Lymphocytes # (A) 0.3 k/uL (1.0-4.8); Lymphocytes % (A) 2 %; MCH 27.7 pg (25.0-35.0); MCHC 32.8 g/dL (31.0-37.0); MCV 84.5 fL (80.0-100.0); Mean Platelet Volume 6.8; Monocytes # (A) 0.7 k/uL (0-1.0); Monocytes % (A) 4 %; Neutrophils # (A) 15.6 k/uL (1.3-7.7); Neutrophils % (A) 93 %; Platelet Count 260 k/uL (150-450); RBC 3.36 m/uL (4.30-5.90); RDW 15.9 % (11.5-15.5); WBC 16.8 k/uL (3.8-10.6)
[2017-12-23 07:55] LABS: Albumin 3.3 g/dL (3.5-5.0); Calcium 7.7 mg/dL (8.4-10.2); Potassium 4.7 mmol/L (3.5-5.1); Total Bilirubin 0.4 mg/dL (0.2-1.3); Total Protein 5.3 g/dL (6.3-8.2)
[2017-12-23 08:14] LABS: Creatine Kinase MB 1.4 ng/mL (0.0-2.4); Troponin I 0.034 ng/mL (0.000-0.034)
[2017-12-23 08:33] LABS: INR 1.1 (<1.2); Partial Thromboplastin Time 25.1 sec (22.0-30.0); Prothrombin Time 10.5 sec (9.0-12.0)
[2017-12-23 11:21] LABS: Appearance,Urine Clear (Clear); Bilirubin,Urine Negative (Negative); Blood,Urine Moderate (Negative); Color,Urine Yellow; Glucose,Urine (UA) Negative (Negative); Ketones,Urine Negative (Negative); Leukocyte Esterase,Urine Negative (Negative); Nitrite,Urine Negative (Negative); Protein,Urine 3+ (Negative); RBC,Urine 171 /hpf (0-5); Urobilinogen,Urine <2.0 mg/dL (<2.0); WBC,Urine 2 /hpf (0-5)
[2017-12-23] MEDS ORDERED: NALOXONE 0.4 MG/ML 1 ML VIAL IV PRN (11:27)
[2017-12-23 13:00] VITALS: BMI 40.9
[2017-12-23] MEDS: INSULIN ASPART 100 UNIT/ML 1 ML 10 ML VIAL SQ SCH ×3 (13:16→21:18)
[2017-12-23 13:17] LABS: Glucose,Whole Blood 38 mg/dL (75-99)
[2017-12-23 13:17] LABS: Glucose,Whole Blood 105 mg/dL (75-99)
[2017-12-23] MEDS ORDERED: CARVEDILOL 12.5 MG TAB PO STA (14:14)
[2017-12-23] MEDS ORDERED: LISINOPRIL 20 MG TAB PO STA (14:14)
[2017-12-23 15:56] LABS: Glucose,Whole Blood 109 mg/dL (75-99)
--- NOTE | 2017-12-23 16:20 | P.HPIM ---
History of Present Illness H&P Date: 12/23/17 Gerson Delvalle is an 82-year-old male who currently is admitted to a care home, who was sent to [facility] emergency room due to an episode of severe hypoglycemia with unresponsiveness, patient has a long history of insulin -dependent diabetes mellitus, however recently he had acute renal failure which resulted in end-stage renal disease with hemodialysis, patient was maintained on Humalog 75/25 55 units before dinner, he was seen 24 hours prior to this ER visit with an episode of hypoglycemia, at that time dose of insulin was decreased to 50 units, patient also had evidence of an area of pneumonia on his chest x-ray, he was started on Augmentin and was sent back to the care home, patient had an episode of severe hypoglycemia again he was reevaluated in emergency room and was admitted to medical floor. 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 Past Medical History Past Medical History: Cancer, Diabetes Mellitus, Hyperlipidemia, Hypertension, Prostate Disorder, Renal Disease, Thyroid Disorder Additional Past Medical History / Comment(s): AORTIC STENOSIS, prostate cancer, past colon polyps, renal disease on hemodialysis about one month. History of Any Multi-Drug Resistant Organisms: None Reported Past Surgical History: Cardiac Valve Replacement, Heart Catheterization, Hernia Repair, Prostate Surgery, Tonsillectomy Additional Past Surgical History / Comment(s): COLON POLYPS. ariel cataracts, upper dental implants,prostatectomy, hernia repair. HEART CATH ON 05/06/2014. total rt knee replacement. 06-16-14 aortic valve replacement(tissue valve) Past Anesthesia/Blood Transfusion Reactions: No Reported Reaction Past Psychological History: No Psychological Hx Reported Smoking Status: Never smoker Past Alcohol Use History: None Reported Past Drug Use History: None Reported - Past Family History Father Family Medical History: No Reported History Additional Family Medical History / Comment(s): age 92.5 years old- from old age Mother Family Medical History: Myocardial Infarction ([place]) Medications and Allergies Home Medications Medication Instructions Recorded Confirmed Type Levothyroxine Sodium [Synthroid] 25 mcg PO DAILY 05/05/14 12/23/17 History Simvastatin [Zocor] 20 mg PO HS 05/05/14 12/23/17 History Insulin NPL/Insulin Lispro 50 unit SQ AC-SUPPER 08/02/16 12/23/17 History [humaLOG MIX 75-25 VIAL] Amoxicillin/Potassium Clav 1 tab PO Q12HR #14 tab 12/22/17 12/23/17 Rx [Augmentin 875-125 Tablet] Ramipril [Altace] 10 mg PO DAILY 12/22/17 12/23/17 History metFORMIN HCL [Glucophage] 1,000 mg PO BID 12/22/17 12/22/17 History Aspirin EC [Ecotrin Low Dose] 81 mg PO DAILY 12/23/17 12/23/17 History Carvedilol [Coreg] 12.5 mg PO BID 12/23/17 12/23/17 History INSULIN LISPRO (humaLOG) [humaLOG] 10 units SQ DAILY 12/23/17 12/23/17 History Multivitamin,Therapeutic [Thera] 1 tab PO HS 12/23/17 12/23/17 History NIFEdipine [NIFEdipine ER] 90 mg PO DAILY 12/23/17 12/23/17 History Omeprazole 40 mg PO DAILY 12/23/17 12/23/17 History Sodium Bicarbonate Tab 650 mg PO BID 12/23/17 12/23/17 History Sulfamethox-Tmp 800-160Mg [Bactrim 1 tab PO MOWEFR 12/23/17 12/23/17 History DS 800-160 mg] predniSONE 40 mg PO DAILY 12/23/17 12/23/17 History Allergies Allergy/AdvReac Type Severity Reaction Status Date / Time No Known Allergies Allergy Verified 12/23/17 10:48 Physical Exam Vitals: Vital Signs Temp Pulse Pulse Resp BP BP Pulse Ox 12/23/17 13:15 99.3 F 90 18 187/82 97 12/23/17 12:13 99.6 F 88 20 167/74 96 12/23/17 10:34 93 20 181/78 95 12/23/17 09:04 96 22 135/85 90 L 12/23/17 06:01 97.9 F 77 18 154/64 94 L 12/23/17 05:43 97.5 F L 74 17 170/73 95 Intake and Output 12/23/17 12/23/17 12/23/17 06:59 14:59 22:59 Other: Weight 136.985 kg 136.9 kg In general patient is alert and oriented 3 in no apparent distress HEENT head normocephalic and atraumatic Neck is supple no JVD no goiter no lymphadenopathy Chest exam reveals a few scattered crackles bilaterally no wheezing Cardiac exam reveals regular heart sounds S1 and S2 no gallops no murmurs Abdomen is soft nontender no organomegaly with normal bowel sounds Extremity exam reveals minimal edema no cyanosis or clubbing Neurological examination reveals no gross focal deficit Results CBC & Chem 7: 12/23/17 05:45 12/23/17 05:45 Labs: Abnormal Lab Results - Last 24 Hours (Table) 12/23/17 12/23/17 12/23/17 Range/Units 05:45 05:45 05:45 WBC 16.8 H (3.8-10.6) k/uL RBC 3.36 L (4.30-5.90) m/uL Hgb 9.3 L (13.0-17.5) gm/dL Hct 28.4 L (39.0-53.0) % RDW 15.9 H (11.5-15.5) % Neutrophils # 15.6 H (1.3-7.7) k/uL Lymphocytes # 0.3 L (1.0-4.8) k/uL BUN 53 H (9-20) mg/dL Creatinine 7.50 H* (0.66-1.25) mg/dL Glucose 68 L (74-99) mg/dL POC Glucose (mg/dL) (75-99) mg/dL Plasma Lactic Acid Wilber (0.7-2.0) mmol/L Calcium 7.7 L (8.4-10.2) mg/dL Phosphorus 5.0 H (2.5-4.5) mg/dL AST 14 L (17-59) U/L Alkaline Phosphatase 36 L (38-126) U/L Total Creatine Kinase 31 L (55-170) U/L Total Protein 5.3 L (6.3-8.2) g/dL Albumin 3.3 L (3.5-5.0) g/dL Urine Protein (Negative) Urine Blood (Negative) Urine RBC (0-5) /hpf 12/23/17 12/23/17 12/23/17 Range/Units 08:00 11:06 12:58 WBC (3.8-10.6) k/uL RBC (4.30-5.90) m/uL Hgb (13.0-17.5) gm/dL Hct (39.0-53.0) % RDW (11.5-15.5) % Neutrophils # (1.3-7.7) k/uL Lymphocytes # (1.0-4.8) k/uL BUN (9-20) mg/dL Creatinine (0.66-1.25) mg/dL Glucose (74-99) mg/dL POC Glucose (mg/dL) 38 L (75-99) mg/dL Plasma Lactic Acid Wilber 0.6 L (0.7-2.0) mmol/L Calcium (8.4-10.2) mg/dL Phosphorus (2.5-4.5) mg/dL AST (17-59) U/L Alkaline Phosphatase (38-126) U/L Total Creatine Kinase (55-170) U/L Total Protein (6.3-8.2) g/dL Albumin (3.5-5.0) g/dL Urine Protein 3+ H (Negative) Urine Blood Moderate H (Negative) Urine RBC 171 H (0-5) /hpf 12/23/17 12/23/17 Range/Units 13:14 15:53 WBC (3.8-10.6) k/uL RBC (4.30-5.90) m/uL Hgb (13.0-17.5) gm/dL Hct (39.0-53.0) % RDW (11.5-15.5) % Neutrophils # (1.3-7.7) k/uL Lymphocytes # (1.0-4.8) k/uL BUN (9-20) mg/dL Creatinine (0.66-1.25) mg/dL Glucose (74-99) mg/dL POC Glucose (mg/dL) 105 H 109 H (75-99) mg/dL Plasma Lactic Acid Wilber (0.7-2.0) mmol/L Calcium (8.4-10.2) mg/dL Phosphorus (2.5-4.5) mg/dL AST (17-59) U/L Alkaline Phosphatase (38-126) U/L Total Creatine Kinase (55-170) U/L Total Protein (6.3-8.2) g/dL Albumin (3.5-5.0) g/dL Urine Protein (Negative) Urine Blood (Negative) Urine RBC (0-5) /hpf Thrombosis Risk Factor Assmnt - Choose All That Apply Any of the Below Risk Factors Present?: Yes Each Factor Represents 1 point: Obesity (BMI >25), Swollen legs (current) Other Risk Factors: Yes Each Risk Factor Represents 2 Points: Patient confined to bed Each Risk Factor Represents 3 Points: Age 75 years or older Other congenital or acquired thrombophilia - If yes, enter type in comment: No Thrombosis Risk Factor Assessment Total Risk Factor Score: 7 Thrombosis Risk Factor Assessment Level: High Risk Assessment and Plan Plan: #1 recurrent episodes of hypoglycemia, at this time will discontinue Humalog Mix 75/25 50 units at bedtime, will start patient on 20 units before breakfast and 20 units before dinner, will monitor glucose closely and adjust dosage as needed. #2 possible pneumonia diagnosed recently in the emergency room patient was started at that time on oral Augmentin. 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
[2017-12-23] MEDS: CARVEDILOL 12.5 MG TAB PO SCH (17:10)
[2017-12-23 17:27] LABS: Glucose,Whole Blood 86 mg/dL (75-99)
[2017-12-23] MEDS: INSULN ASP PRT/INSULIN ASPART 100 UNIT/ML 10 ML VIAL SQ SCH (17:40)
[2017-12-23] MEDS: AZITHROMYCIN 500 MG in SODIUM CHLORIDE 0.9% 250 ML IVPB SCH (17:43)
[2017-12-23 19:49] LABS: Glucose,Whole Blood 205 mg/dL (75-99)
[2017-12-23] MEDS: ATORVASTATIN 10 MG TAB PO SCH (20:33)
[2017-12-23] MEDS: SODIUM BICARBONATE TAB 650 MG TAB PO SCH (20:33)
[2017-12-23] MEDS: MULTIVITAMINS, THERA 1 EACH TAB PO SCH (20:33)
[2017-12-23] MEDS ORDERED: AMOXIC-POT CLAV 875-125MG 1 EACH TAB PO SCH (21:00)
[2017-12-23] MEDS ORDERED: metFORMIN 500 MG TAB PO SCH (21:00)
[2017-12-23 21:22] LABS: Glucose,Whole Blood 132 mg/dL (75-99)
[2017-12-23] MEDS ORDERED: DIPHENOX-ATROP 2.5-0.025 MG 1 EACH TAB PO PRN (22:30)
[2017-12-23 22:49] LABS: Hepatitis B Surface AB- Quant 3.5 mIU/mL
[2017-12-23 23:07] LABS: Glucose,Whole Blood 113 mg/dL (75-99)
[2017-12-24 01:21] LABS: Glucose,Whole Blood 78 mg/dL (75-99)
[2017-12-24 03:08] LABS: Glucose,Whole Blood 146 mg/dL (75-99)
[2017-12-24] MEDS: LEVOTHYROXINE 25 MCG TAB PO SCH (06:26)
[2017-12-24] MEDS: CARVEDILOL 12.5 MG TAB PO SCH ×2 (06:26→17:47)
[2017-12-24] MEDS: PANTOPRAZOLE 40 MG TABLET PO SCH (06:26)
[2017-12-24] MEDS: SODIUM BICARBONATE TAB 650 MG TAB PO SCH (07:39)
[2017-12-24] MEDS: predniSONE 20 MG TAB PO SCH (07:39)
[2017-12-24] MEDS: LISINOPRIL 20 MG TAB PO SCH (07:39)
[2017-12-24] MEDS: NIFEdipine XL 90 MG TAB.ER.24 PO SCH (07:39)
[2017-12-24] MEDS: ASPIRIN 81 MG PO SCH (07:39)
[2017-12-24 07:44] LABS: Glucose,Whole Blood 113 mg/dL (75-99)
[2017-12-24] MEDS: INSULIN ASPART 100 UNIT/ML 1 ML 10 ML VIAL SQ SCH ×4 (07:45→22:10)
[2017-12-24] MEDS: INSULN ASP PRT/INSULIN ASPART 100 UNIT/ML 10 ML VIAL SQ SCH ×3 (07:47→18:03)
[2017-12-24 08:21] LABS: Albumin 2.5 g/dL (3.5-5.0); Potassium 4.5 mmol/L (3.5-5.1); Total Bilirubin 0.4 mg/dL (0.2-1.3); Total Protein 4.4 g/dL (6.3-8.2)
--- NOTE | 2017-12-24 08:39 | P.NPCON ---
History of Present Illness - Reason for Consult acute renal failure - History of Present Illness Reason for consultation: Acute kidney injury History of present illness: Patient is a 82-year-old male seen in Consultation for acute kidney injury currently hemodialysis dependent. Etiology as granulomatosis with polyangiitis. Patient was admitted to the hospital in November 2017 and at that time was noted to be in acute renal failure with creatinine of over 15. Patient has been hemodialysis since and is oliguric. 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 Patient was transferred to [facility] and underwent 5 treatments of plasma exchange. He also received 1 dose of rituximab for induction therapy for vasculitis. He is scheduled to receive the next 3 doses as an outpatient in [place]. He is also maintained on prednisone 40 mg daily. Patient presented from [facility] due to hypoglycemia. He was also unresponsive. When patient came to the hospital his blood sugar was 86 and there have been no episodes of hypoglycemia on this admission. He is maintained on antibiotics for pneumonia. He is also on Bactrim for prophylaxis for opportunistic infections as he is on high-dose prednisone. Denies chest pain or shortness of breath. He is maintained on hemodialysis on a Monday schedule at this time. He tolerated hemodialysis well yesterday. Vital signs are stable. General: The patient appeared well nourished and normally developed. HEENT: Head exam is unremarkable. Neck is without jugular venous distension. LUNGS: Lungs are clear to auscultation and percussion. Breath sounds decreased. HEART: Rate and Rhythm are regular. First and second heart sounds normal. No murmurs, rubs or gallops. ABDOMEN: Abdominal exam reveals normal bowel sounds. Non-tender and non- distended. No evidence of peritonitis. EXTREMITITES: No clubbing, cyanosis, or edema. Past Medical History Past Medical History: Cancer, Diabetes Mellitus, Hyperlipidemia, Hypertension, Prostate Disorder, Renal Disease, Thyroid Disorder Additional Past Medical History / Comment(s): AORTIC STENOSIS, prostate cancer, past colon polyps, renal disease on hemodialysis about one month. History of Any Multi-Drug Resistant Organisms: None Reported Past Surgical History: Cardiac Valve Replacement, Heart Catheterization, Hernia Repair, Prostate Surgery, Tonsillectomy Additional Past Surgical History / Comment(s): COLON POLYPS. ariel cataracts, upper dental implants,prostatectomy, hernia repair. HEART CATH ON 05/06/2014. total rt knee replacement. 06-16-14 aortic valve replacement(tissue valve) Past Anesthesia/Blood Transfusion Reactions: No Reported Reaction Past Psychological History: No Psychological Hx Reported Smoking Status: Never smoker Past Alcohol Use History: None Reported Past Drug Use History: None Reported - Past Family History Father Family Medical History: No Reported History Additional Family Medical History / Comment(s): age 92.5 years old- from old age Mother Family Medical History: Myocardial Infarction ([place]) Medications and Allergies Home Medications Medication Instructions Recorded Confirmed Type Levothyroxine Sodium [Synthroid] 25 mcg PO DAILY 05/05/14 12/23/17 History Simvastatin [Zocor] 20 mg PO HS 05/05/14 12/23/17 History Insulin NPL/Insulin Lispro 50 unit SQ AC-SUPPER 08/02/16 12/23/17 History [humaLOG MIX 75-25 VIAL] Amoxicillin/Potassium Clav 1 tab PO Q12HR #14 tab 12/22/17 12/23/17 Rx [Augmentin 875-125 Tablet] Ramipril [Altace] 10 mg PO DAILY 12/22/17 12/23/17 History metFORMIN HCL [Glucophage] 1,000 mg PO BID 12/22/17 12/22/17 History Aspirin EC [Ecotrin Low Dose] 81 mg PO DAILY 12/23/17 12/23/17 History Carvedilol [Coreg] 12.5 mg PO BID 12/23/17 12/23/17 History INSULIN LISPRO (humaLOG) [humaLOG] 10 units SQ DAILY 12/23/17 12/23/17 History Multivitamin,Therapeutic [Thera] 1 tab PO HS 12/23/17 12/23/17 History NIFEdipine [NIFEdipine ER] 90 mg PO DAILY 12/23/17 12/23/17 History Omeprazole 40 mg PO DAILY 12/23/17 12/23/17 History Sodium Bicarbonate Tab 650 mg PO BID 12/23/17 12/23/17 History Sulfamethox-Tmp 800-160Mg [Bactrim 1 tab PO MOWEFR 12/23/17 12/23/17 History DS 800-160 mg] predniSONE 40 mg PO DAILY 12/23/17 12/23/17 History Allergies Allergy/AdvReac Type Severity Reaction Status Date / Time No Known Allergies Allergy Verified 12/23/17 10:48 Physical Exam Vitals: Vital Signs Temp Pulse Pulse Resp BP BP Pulse Ox 12/24/17 05:40 98.3 F 91 20 175/73 96 12/23/17 23:00 99.6 F 75 20 164/70 94 L 12/23/17 13:15 99.3 F 90 18 187/82 97 12/23/17 12:13 99.6 F 88 20 167/74 96 12/23/17 10:34 93 20 181/78 95 12/23/17 09:04 96 22 135/85 90 L Intake and Output 12/23/17 12/24/17 12/24/17 22:59 06:59 14:59 Intake Total 200 200 Balance 200 200 Intake: Oral 200 200 Other: Voiding Method Diaper Incontinent # Voids 0 0 # Bowel Movements 2 2 Results - Lab Results Most recent lab results Calcium 7.0 mg/dL (8.4-10.2) L 12/24/17 07:30 Phosphorus 5.0 mg/dL (2.5-4.5) H 12/23/17 05:45 Magnesium 2.0 mg/dL (1.6-2.3) 12/23/17 05:45 12/23/17 05:45 12/24/17 07:30 Assessment and Plan Plan: Assessment: 1. Acute kidney injury currently hemodialysis dependent secondary to granulomatosis with polyangiitis. Patient was noted to be c-ANCA positive and kidney biopsy revealed crescentic glomerulonephritis. Patient received 5 treatments of plasmapheresis at [facility]. He has received 1 dose of rituximab so far. He is maintained on prednisone 40 mg daily along with Bactrim at this time. 2. Hypoglycemia prior to admission. Stable at this time. 3. Benign hypertension. 4. Diabetes mellitus. 5. Pneumonia maintain on antibiotics. Plan: Next hemodialysis on Monday. Check phosphorus level. Discontinue sodium bicarbonate. Maintain prednisone 40 mg daily. Patient scheduled to receive 3 more doses of rituximab as an outpatient. Maintain Bactrim. Home antihypertensives have been resumed. Monitor blood pressure. Thank you for the consultation. I will continue to follow the patient with you during his hospital stay.
[2017-12-24 08:48] LABS: Anisocytosis Slight; Basophils % (A) 0 %; Eosinophils # (A) 0.2 k/uL (0-0.7); Eosinophils % (A) 3 %; Lymphocytes # (A) 0.7 k/uL (1.0-4.8); Lymphocytes % (A) 12 %; MCH 27.7 pg (25.0-35.0); MCHC 32.3 g/dL (31.0-37.0); MCV 85.8 fL (80.0-100.0); Mean Platelet Volume 6.9; Monocytes # (A) 0.5 k/uL (0-1.0); Monocytes % (A) 9 %; Neutrophils # (A) 4.2 k/uL (1.3-7.7); Neutrophils % (A) 73 %; Platelet Count 211 k/uL (150-450); RBC 2.56 m/uL (4.30-5.90); RDW 16.2 % (11.5-15.5); WBC 5.7 k/uL (3.8-10.6)
[2017-12-24 08:53] LABS: HGB 7.1 gm/dL (13.0-17.5)
--- NOTE | 2017-12-24 09:00 | XR ---
EXAMINATION TYPE: XR chest 2V DATE OF EXAM: 12/24/2017 HISTORY: pneumonia. REFERENCE: Previous study dated 12/22/2017. FINDINGS: There has been a midline sternotomy. There is a large-bore, double-lumen catheter in place via a right internal jugular approach. Its tip is at the cavoatrial junction. The heart is enlarged. There is vascular congestion and pulmonary edema. No definite pleural fluid is seen. IMPRESSION: WORSENING CHANGES OF CONGESTIVE HEART FAILURE.
[2017-12-24] MEDS: AZITHROMYCIN 500 MG in SODIUM CHLORIDE 0.9% 250 ML IVPB SCH (09:02)
[2017-12-24 09:57] LABS: Glucose,Whole Blood 180 mg/dL (75-99)
--- NOTE | 2017-12-24 10:07 | P.PN ---
Subjective Progress Note Date: 12/24/17 Gerson Delvalle is an 82-year-old male who currently is admitted to a senior living, who was sent to [facility] emergency room due to an episode of severe hypoglycemia with unresponsiveness, patient has a long history of insulin -dependent diabetes mellitus, however recently he had acute renal failure which resulted in end-stage renal disease with hemodialysis, patient was maintained on Humalog 75/25 55 units before dinner, he was seen 24 hours prior to this ER visit with an episode of hypoglycemia, at that time dose of insulin was decreased to 50 units, patient also had evidence of an area of pneumonia on his chest x-ray, he was started on Augmentin and was sent back to the senior living, patient had an episode of severe hypoglycemia again he was reevaluated in emergency room and was admitted to medical floor. 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 On 12/24/2017 patient is currently resting comfortably in bed. Patient denies any chest pain or shortness of breath. Patient denies nausea vomiting or diarrhea. Patient denies any urinary burning or frequency. Current blood sugar 180. Nephrology services have been consulted. Objective - Vital Signs Vital signs: Vital Signs Temp 98.3 F 12/24/17 05:40 Pulse 91 12/24/17 05:40 Resp 20 12/24/17 05:40 BP 175/73 12/24/17 05:40 Pulse Ox 96 12/24/17 05:40 Intake & Output 12/23/17 12/24/17 12/24/17 18:59 06:59 18:59 Intake Total 400 Balance 400 Weight 136.9 kg Intake: Oral 400 Other: Voiding Method Diaper Diaper Incontinent Incontinent # Voids 0 # Bowel Movements 2 - Exam In general patient is alert and oriented 3 in no apparent distress HEENT head normocephalic and atraumatic Neck is supple no JVD no goiter no lymphadenopathy Chest exam reveals a few scattered crackles bilaterally no wheezing Cardiac exam reveals regular heart sounds S1 and S2 no gallops no murmurs Abdomen is soft nontender no organomegaly with normal bowel sounds Extremity exam reveals minimal edema no cyanosis or clubbing Neurological examination reveals no gross focal deficit - Labs CBC & Chem 7: 12/24/17 07:30 12/24/17 07:30 Labs: Abnormal Lab Results - Last 24 Hours (Table) 12/23/17 12/23/17 12/23/17 Range/Units 11:06 12:58 13:14 RBC (4.30-5.90) m/uL Hgb (13.0-17.5) gm/dL Hct (39.0-53.0) % RDW (11.5-15.5) % Lymphocytes # (1.0-4.8) k/uL Carbon Dioxide (22-30) mmol/L BUN (9-20) mg/dL Creatinine (0.66-1.25) mg/dL POC Glucose (mg/dL) 38 L 105 H (75-99) mg/dL Calcium (8.4-10.2) mg/dL AST (17-59) U/L Alkaline Phosphatase (38-126) U/L Total Protein (6.3-8.2) g/dL Albumin (3.5-5.0) g/dL Urine Protein 3+ H (Negative) Urine Blood Moderate H (Negative) Urine RBC 171 H (0-5) /hpf 12/23/17 12/23/17 12/23/17 Range/Units 15:53 19:31 21:04 RBC (4.30-5.90) m/uL Hgb (13.0-17.5) gm/dL Hct (39.0-53.0) % RDW (11.5-15.5) % Lymphocytes # (1.0-4.8) k/uL Carbon Dioxide (22-30) mmol/L BUN (9-20) mg/dL Creatinine (0.66-1.25) mg/dL POC Glucose (mg/dL) 109 H 205 H 132 H (75-99) mg/dL Calcium (8.4-10.2) mg/dL AST (17-59) U/L Alkaline Phosphatase (38-126) U/L Total Protein (6.3-8.2) g/dL Albumin (3.5-5.0) g/dL Urine Protein (Negative) Urine Blood (Negative) Urine RBC (0-5) /hpf 12/23/17 12/24/17 12/24/17 Range/Units 23:04 03:05 07:30 RBC 2.56 L (4.30-5.90) m/uL Hgb 7.1 L D (13.0-17.5) gm/dL Hct 22.0 L (39.0-53.0) % RDW 16.2 H (11.5-15.5) % Lymphocytes # 0.7 L (1.0-4.8) k/uL Carbon Dioxide (22-30) mmol/L BUN (9-20) mg/dL Creatinine (0.66-1.25) mg/dL POC Glucose (mg/dL) 113 H 146 H (75-99) mg/dL Calcium (8.4-10.2) mg/dL AST (17-59) U/L Alkaline Phosphatase (38-126) U/L Total Protein (6.3-8.2) g/dL Albumin (3.5-5.0) g/dL Urine Protein (Negative) Urine Blood (Negative) Urine RBC (0-5) /hpf 12/24/17 12/24/17 12/24/17 Range/Units 07:30 07:41 09:51 RBC (4.30-5.90) m/uL Hgb (13.0-17.5) gm/dL Hct (39.0-53.0) % RDW (11.5-15.5) % Lymphocytes # (1.0-4.8) k/uL Carbon Dioxide 31 H (22-30) mmol/L BUN 38 H (9-20) mg/dL Creatinine 6.31 H (0.66-1.25) mg/dL POC Glucose (mg/dL) 113 H 180 H (75-99) mg/dL Calcium 7.0 L (8.4-10.2) mg/dL AST 8 L (17-59) U/L Alkaline Phosphatase 25 L (38-126) U/L Total Protein 4.4 L (6.3-8.2) g/dL Albumin 2.5 L (3.5-5.0) g/dL Urine Protein (Negative) Urine Blood (Negative) Urine RBC (0-5) /hpf Microbiology - Last 24 Hours (Table) 12/23/17 11:06 Urine Culture - Preliminary Urine,Catheterized Assessment and Plan Assessment: #1 recurrent episodes of hypoglycemia, at this time will discontinue Humalog Mix 75/25 50 units at bedtime, will start patient on 20 units before breakfast and 20 units before dinner, will monitor glucose closely and adjust dosage as needed. Blood sugar 180 #2 possible pneumonia diagnosed recently in the emergency room patient was started at that time on oral Augmentin. At this time will start patient on Rocephin and Zithromax IV, will recheck chest x-ray PA and lateral. X-ray completed showing worsening changes of congestive heart failure. #3 end-stage renal disease on hemodialysis. 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 Hemoglobin 7.1. No signs of bleeding per nursing staff. Will order stool occult blood DVT prophylaxis SCDs, GI prophylaxis Protonix I performed an examination of the patient and discussed their management with the Nurse Practitioner. I have reviewed the Nurse Practitioner's notes and agree with the documented findings and plan of care
[2017-12-24 12:05] LABS: Glucose,Whole Blood 180 mg/dL (75-99)
[2017-12-24 17:37] LABS: Glucose,Whole Blood 319 mg/dL (75-99)
[2017-12-24 21:15] LABS: Glucose,Whole Blood 358 mg/dL (75-99)
[2017-12-24] MEDS: ATORVASTATIN 10 MG TAB PO SCH (22:06)
[2017-12-24] MEDS: MULTIVITAMINS, THERA 1 EACH TAB PO SCH (22:06)
[2017-12-25 02:13] LABS: Glucose,Whole Blood 185 mg/dL (75-99)
[2017-12-25] MEDS: LEVOTHYROXINE 25 MCG TAB PO SCH (06:06)
[2017-12-25 06:19] LABS: Glucose,Whole Blood 188 mg/dL (75-99)
[2017-12-25 07:42] LABS: Glucose,Whole Blood 167 mg/dL (75-99)
[2017-12-25] MEDS: PANTOPRAZOLE 40 MG TABLET PO SCH (08:24)
[2017-12-25] MEDS: CARVEDILOL 12.5 MG TAB PO SCH ×2 (08:24→17:25)
[2017-12-25] MEDS: predniSONE 20 MG TAB PO SCH (08:24)
[2017-12-25] MEDS: INSULIN ASPART 100 UNIT/ML 1 ML 10 ML VIAL SQ SCH ×4 (08:25→21:31)
[2017-12-25] MEDS: INSULN ASP PRT/INSULIN ASPART 100 UNIT/ML 10 ML VIAL SQ SCH ×2 (08:25→17:25)
[2017-12-25] MEDS: NIFEdipine XL 90 MG TAB.ER.24 PO SCH (08:25)
[2017-12-25] MEDS: LISINOPRIL 20 MG TAB PO SCH (08:25)
[2017-12-25] MEDS: ASPIRIN 81 MG PO SCH (08:25)
--- NOTE | 2017-12-25 08:39 | P.PN ---
Subjective Patient is seen in follow-up for acute kidney injury currently hemodialysis dependent. Patient is maintained on hemodialysis on a Monday schedule. 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 Patient presented with hypoglycemia. Blood sugars stable during this admission. No active complaints at this time. Vital signs are stable. General: The patient appeared well nourished and normally developed. HEENT: Head exam is unremarkable. Neck is without jugular venous distension. LUNGS: Lungs are clear to auscultation and percussion. Breath sounds decreased. HEART: Rate and Rhythm are regular. First and second heart sounds normal. No murmurs, rubs or gallops. ABDOMEN: Abdominal exam reveals normal bowel sounds. Non-tender and non- distended. No evidence of peritonitis. EXTREMITITES: No clubbing, cyanosis, or edema. Objective - Vital Signs Vital signs: Vital Signs Temp 97.8 F 12/25/17 07:00 Pulse 66 12/25/17 07:00 Resp 18 12/25/17 07:00 BP 141/65 12/25/17 07:00 Pulse Ox 95 12/25/17 07:00 Intake & Output 12/24/17 12/25/17 12/25/17 18:59 06:59 18:59 Intake Total 1200 Balance 1200 Intake: Oral 1200 Other: Voiding Method Diaper Diaper Incontinent Incontinent # Voids 1 - Labs CBC & Chem 7: 12/24/17 07:30 12/24/17 07:30 Labs: Abnormal Lab Results - Last 24 Hours (Table) 12/24/17 12/24/17 12/24/17 Range/Units 07:30 07:30 09:51 RBC 2.56 L (4.30-5.90) m/uL Hgb 7.1 L D (13.0-17.5) gm/dL Hct 22.0 L (39.0-53.0) % RDW 16.2 H (11.5-15.5) % Lymphocytes # 0.7 L (1.0-4.8) k/uL POC Glucose (mg/dL) 180 H (75-99) mg/dL Phosphorus 4.8 H (2.5-4.5) mg/dL 12/24/17 12/24/17 12/24/17 Range/Units 11:59 17:35 21:13 RBC (4.30-5.90) m/uL Hgb (13.0-17.5) gm/dL Hct (39.0-53.0) % RDW (11.5-15.5) % Lymphocytes # (1.0-4.8) k/uL POC Glucose (mg/dL) 180 H 319 H 358 H (75-99) mg/dL Phosphorus (2.5-4.5) mg/dL 12/25/17 12/25/17 12/25/17 Range/Units 02:11 06:17 07:36 RBC (4.30-5.90) m/uL Hgb (13.0-17.5) gm/dL Hct (39.0-53.0) % RDW (11.5-15.5) % Lymphocytes # (1.0-4.8) k/uL POC Glucose (mg/dL) 185 H 188 H 167 H (75-99) mg/dL Phosphorus (2.5-4.5) mg/dL Microbiology - Last 24 Hours (Table) 12/23/17 11:06 Urine Culture - Final Urine,Catheterized Assessment and Plan Plan: Assessment: 1. Acute kidney injury currently hemodialysis dependent secondary to granulomatosis with polyangiitis. Patient was noted to be c-ANCA positive and kidney biopsy revealed crescentic glomerulonephritis. Patient received 5 treatments of plasmapheresis at [facility]. He has received 2 doses of rituximab so far. He is maintained on prednisone 40 mg daily along with Bactrim at this time. 2. Hypoglycemia prior to admission. Stable at this time. 3. Benign hypertension. Controlled. 4. Diabetes mellitus. 5. Pneumonia maintain on antibiotics. Plan: Hemodialysis today due to changes in dialysis schedule due to holiday. Discontinued sodium bicarbonate. Maintain prednisone 40 mg daily. Patient scheduled to receive 2 more doses of rituximab as an outpatient. Maintain Bactrim. Maintain current antihypertensives.
[2017-12-25] MEDS ORDERED: SULFAMETHOX-TMP 800-160MG 1 EACH TAB PO SCH (09:00)
[2017-12-25 09:03] LABS: Basophils % (A) 0 %; Eosinophils # (A) 0.1 k/uL (0-0.7); Eosinophils % (A) 1 %; HCT 23.1 % (39.0-53.0); HGB 7.7 gm/dL (13.0-17.5); Lymphocytes # (A) 0.7 k/uL (1.0-4.8); Lymphocytes % (A) 9 %; MCH 28.7 pg (25.0-35.0); MCHC 33.1 g/dL (31.0-37.0); MCV 86.7 fL (80.0-100.0); Mean Platelet Volume 6.9; Monocytes # (A) 0.7 k/uL (0-1.0); Monocytes % (A) 9 %; Neutrophils # (A) 6.2 k/uL (1.3-7.7); Neutrophils % (A) 78 %; Platelet Count 247 k/uL (150-450); RBC 2.67 m/uL (4.30-5.90); RDW 15.8 % (11.5-15.5)
[2017-12-25] MEDS: AZITHROMYCIN 500 MG in SODIUM CHLORIDE 0.9% 250 ML IVPB SCH (09:33)
[2017-12-25 09:50] LABS: Albumin 2.9 g/dL (3.5-5.0); Calcium 7.4 mg/dL (8.4-10.2); Potassium 5.1 mmol/L (3.5-5.1); Total Bilirubin 0.4 mg/dL (0.2-1.3)
[2017-12-25 12:06] LABS: Glucose,Whole Blood 178 mg/dL (75-99)
--- NOTE | 2017-12-25 12:25 | P.PN ---
Subjective Progress Note Date: 12/25/17 Gerson Delvalle is an 82-year-old male who currently is admitted to a alf, who was sent to [facility] emergency room due to an episode of severe hypoglycemia with unresponsiveness, patient has a long history of insulin -dependent diabetes mellitus, however recently he had acute renal failure which resulted in end-stage renal disease with hemodialysis, patient was maintained on Humalog 75/25 55 units before dinner, he was seen 24 hours prior to this ER visit with an episode of hypoglycemia, at that time dose of insulin was decreased to 50 units, patient also had evidence of an area of pneumonia on his chest x-ray, he was started on Augmentin and was sent back to the alf, patient had an episode of severe hypoglycemia again he was reevaluated in emergency room and was admitted to medical floor. 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 On 12/24/2017 patient is currently resting comfortably in bed. Patient denies any chest pain or shortness of breath. Patient denies nausea vomiting or diarrhea. Patient denies any urinary burning or frequency. Current blood sugar 180. Nephrology services have been consulted. On 12/25/2017 patient is currently resting comfortably in bed. Patient is getting dialysis today. Patient denies chest pain or shortness of breath. Patient denies nausea vomiting or diarrhea. Objective - Vital Signs Vital signs: Vital Signs Temp 97.8 F 12/25/17 07:00 Pulse 66 12/25/17 07:00 Resp 18 12/25/17 07:00 BP 141/65 12/25/17 07:00 Pulse Ox 95 12/25/17 07:00 Intake & Output 12/24/17 12/25/17 12/25/17 18:59 06:59 18:59 Intake Total 1200 Balance 1200 Intake: Oral 1200 Other: Voiding Method Diaper Diaper Diaper Incontinent Incontinent Incontinent # Voids 1 - Exam In general patient is alert and oriented 3 in no apparent distress HEENT head normocephalic and atraumatic Neck is supple no JVD no goiter no lymphadenopathy Chest exam reveals a few scattered crackles bilaterally no wheezing Cardiac exam reveals regular heart sounds S1 and S2 no gallops no murmurs Abdomen is soft nontender no organomegaly with normal bowel sounds Extremity exam reveals minimal edema no cyanosis or clubbing Neurological examination reveals no gross focal deficit - Labs CBC & Chem 7: 12/25/17 08:27 12/25/17 08:19 Labs: Abnormal Lab Results - Last 24 Hours (Table) 12/24/17 12/24/17 12/25/17 Range/Units 17:35 21:13 02:11 RBC (4.30-5.90) m/uL Hgb (13.0-17.5) gm/dL Hct (39.0-53.0) % RDW (11.5-15.5) % Lymphocytes # (1.0-4.8) k/uL BUN (9-20) mg/dL Creatinine (0.66-1.25) mg/dL Glucose (74-99) mg/dL POC Glucose (mg/dL) 319 H 358 H 185 H (75-99) mg/dL Calcium (8.4-10.2) mg/dL AST (17-59) U/L Alkaline Phosphatase (38-126) U/L Total Protein (6.3-8.2) g/dL Albumin (3.5-5.0) g/dL 12/25/17 12/25/17 12/25/17 Range/Units 06:17 07:36 08:19 RBC (4.30-5.90) m/uL Hgb (13.0-17.5) gm/dL Hct (39.0-53.0) % RDW (11.5-15.5) % Lymphocytes # (1.0-4.8) k/uL BUN 53 H (9-20) mg/dL Creatinine 8.02 H* (0.66-1.25) mg/dL Glucose 170 H (74-99) mg/dL POC Glucose (mg/dL) 188 H 167 H (75-99) mg/dL Calcium 7.4 L (8.4-10.2) mg/dL AST 13 L (17-59) U/L Alkaline Phosphatase 33 L (38-126) U/L Total Protein 5.0 L (6.3-8.2) g/dL Albumin 2.9 L (3.5-5.0) g/dL 12/25/17 12/25/17 Range/Units 08:27 12:03 RBC 2.67 L (4.30-5.90) m/uL Hgb 7.7 L (13.0-17.5) gm/dL Hct 23.1 L (39.0-53.0) % RDW 15.8 H (11.5-15.5) % Lymphocytes # 0.7 L (1.0-4.8) k/uL BUN (9-20) mg/dL Creatinine (0.66-1.25) mg/dL Glucose (74-99) mg/dL POC Glucose (mg/dL) 178 H (75-99) mg/dL Calcium (8.4-10.2) mg/dL AST (17-59) U/L Alkaline Phosphatase (38-126) U/L Total Protein (6.3-8.2) g/dL Albumin (3.5-5.0) g/dL Microbiology - Last 24 Hours (Table) 12/23/17 11:06 Urine Culture - Final Urine,Catheterized Assessment and Plan Assessment: #1 recurrent episodes of hypoglycemia, at this time will discontinue Humalog Mix 75/25 50 units at bedtime, will start patient on 20 units before breakfast and 20 units before dinner, will monitor glucose closely and adjust dosage as needed. Blood sugar 180 #2 possible pneumonia diagnosed recently in the emergency room patient was started at that time on oral Augmentin. At this time will start patient on Rocephin and Zithromax IV, will recheck chest x-ray PA and lateral. X-ray completed showing worsening changes of congestive heart failure. Repeat chest x -ray ordered for tomorrow after dialysis today #3 end-stage renal disease on hemodialysis. Patient to receive dialysis today. 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 Hemoglobin 7.1. No signs of bleeding per nursing staff. Will order stool occult blood. Hemoglobin 7.7. DVT prophylaxis SCDs, GI prophylaxis Protonix I performed an examination of the patient and discussed their management with the Nurse Practitioner. I have reviewed the Nurse Practitioner's notes and agree with the documented findings and plan of care
--- NOTE | 2017-12-25 14:24 | P.DS ---
Providers Date of admission: 12/23/17 11:56 Expected date of discharge: 12/25/17 Attending physician: Jomar Rangel Consults: 12/23/17 12:11 Consult Physician Routine Consulting Provider: Euegnia Berry Consult Reason/Comments: Dialysis Do you want consulting provider notified?: Yes Primary care physician: Jomar Rangel [facility] Course: Discharge diagnosis #1 recurrent episodes of hypoglycemia, at this time will discontinue Humalog Mix 75/25 50 units at bedtime, will start patient on 20 units before breakfast and 20 units before dinner, will monitor glucose closely and adjust dosage as needed. Blood sugar 180. Insulin adjusted to 70/30 twice a day plus sliding scale coverage with meals. #2 possible pneumonia diagnosed recently in the emergency room patient was started at that time on oral Augmentin. At this time will start patient on Rocephin and Zithromax IV, will recheck chest x-ray PA and lateral. X-ray completed showing worsening changes of congestive heart failure. Chest x-ray will be ordered for tomorrow at custodial #3 end-stage renal disease on hemodialysis. Patient to received dialysis today with 2 L off. 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 Per nephrology services sodium bicarbonate has been discontinued. Maintain patient on 40 mg prednisone. Patient to receive 2 more doses of rituximab as an outpatient. Patient to be maintained on Bactrim per nephrology services #5 insulin-dependent diabetes mellitus #6 underlying history of coronary artery disease #7 underlying history of hypertension #8 anemia. Hemoglobin 7.1. No signs of bleeding per nursing staff. Will order stool occult blood. Hemoglobin 7.7. Chest x-ray complaining on 12/24/2017 showing worsening changes of congestive heart failure patient did receive hemodialysis on 12/25. Chest x-ray will be ordered outpatient for tomorrow at custodial. Hospital course Gerson Delvalle is an 82-year-old male who currently is admitted to a custodial, who was sent to [facility] emergency room due to an episode of severe hypoglycemia with unresponsiveness, patient has a long history of insulin -dependent diabetes mellitus, however recently he had acute renal failure which resulted in end-stage renal disease with hemodialysis, patient was maintained on Humalog 75/25 55 units before dinner, he was seen 24 hours prior to this ER visit with an episode of hypoglycemia, at that time dose of insulin was decreased to 50 units, patient also had evidence of an area of pneumonia on his chest x-ray, he was started on Augmentin and was sent back to the custodial, patient had an episode of severe hypoglycemia again he was reevaluated in emergency room and was admitted to medical floor. Patient was recently admitted to [facility] was acute kidney failure, he was seen by nephrology kidney biopsy revealed evidence of necrotizing and crescentic glomerulonephritis, he was transferred to [facility] for plasmapheresis, kidney function did not improve and currently patient is on hemodialysis. On 12/24/2017 patient is currently resting comfortably in bed. Patient denies any chest pain or shortness of breath. Patient denies nausea vomiting or diarrhea. Patient denies any urinary burning or frequency. Current blood sugar 180. Nephrology services have been consulted. On 12/25/2017 patient is currently resting comfortably in bed. Patient is getting dialysis today. Patient denies chest pain or shortness of breath. Patient denies nausea vomiting or diarrhea. Patient expresses that he is very eager to get back to rehab. Patient requesting discharge. We'll order repeat chest x-ray and custodial. Nephrology cleared patient for discharge. At this time patient denies chest pain or shortness breath. Patient denies nausea vomiting or diarrhea. Patient denies any urinary burning or frequency. We'll discharge patient on azithromycin 250 for 5 more days. Will order chest x-ray for a.m. at custodial. Insulin has been changed to NovoLog 70/30 15 units twice a day and sliding scale coverage with meals. I performed an examination of the patient and discussed their management with the Nurse Practitioner. I have reviewed the Nurse Practitioner's notes and agree with the documented findings and plan of care Patient Condition at Discharge: Stable Plan - Discharge Summary Discharge Rx Participant: No New Discharge Prescriptions: New Insulin Aspart [NovoLOG (formulary)] 0 unit SQ ACHS #1 vial Insuln Asp Prt/Insulin Aspart [NovoLOG MIX 70-30 VIAL] 15 unit SQ AC-BID #1 vial Azithromycin 250 mg PO DAILY 5 Days #5 tab Continue Levothyroxine Sodium [Synthroid] 25 mcg PO DAILY Simvastatin [Zocor] 20 mg PO HS Ramipril [Altace] 10 mg PO DAILY predniSONE 40 mg PO DAILY Omeprazole 40 mg PO DAILY NIFEdipine [NIFEdipine ER] 90 mg PO DAILY Multivitamin,Therapeutic [Thera] 1 tab PO HS Carvedilol [Coreg*] 12.5 mg PO BID Sulfamethox-Tmp 800-160Mg [Bactrim DS 800-160 mg] 1 tab PO MOWEFR Aspirin EC [Ecotrin Low Dose] 81 mg PO DAILY Discontinued Insulin NPL/Insulin Lispro [humaLOG MIX 75-25 VIAL] 50 unit SQ AC-SUPPER metFORMIN HCL [Glucophage] 1,000 mg PO BID Amoxicillin/Potassium Clav [Augmentin 875-125 Tablet] 1 tab PO Q12HR #14 tab Sodium Bicarbonate Tab 650 mg PO BID INSULIN LISPRO (humaLOG) [humaLOG] 10 units SQ DAILY Discharge Medication List Levothyroxine Sodium [Synthroid] 25 mcg PO DAILY 05/05/14 [History] Simvastatin [Zocor] 20 mg PO HS 05/05/14 [History] Ramipril [Altace] 10 mg PO DAILY 12/22/17 [History] Aspirin EC [Ecotrin Low Dose] 81 mg PO DAILY 12/23/17 [History] Carvedilol [Coreg*] 12.5 mg PO BID 12/23/17 [History] Multivitamin,Therapeutic [Thera] 1 tab PO HS 12/23/17 [History] NIFEdipine [NIFEdipine ER] 90 mg PO DAILY 12/23/17 [History] Omeprazole 40 mg PO DAILY 12/23/17 [History] Sulfamethox-Tmp 800-160Mg [Bactrim DS 800-160 mg] 1 tab PO MOWEFR 12/23/17 [ History] predniSONE 40 mg PO DAILY 12/23/17 [History] Azithromycin 250 mg PO DAILY 5 Days #5 tab 12/25/17 [Rx] Insulin Aspart [NovoLOG (formulary)] 0 unit SQ ACHS #1 vial 12/25/17 [Rx] Insuln Asp Prt/Insulin Aspart [NovoLOG MIX 70-30 VIAL] 15 unit SQ AC-BID #1 vial 12/25/17 [Rx] Follow up Appointment(s)/Referral(s): Jomar Rangel MD [Primary Care Provider] - 1-2 days Vinicius Hicks DO [STAFF PHYSICIAN] - 1 Week Ambulatory/Diagnostic Orders: XR chest 2V [RAD.AMB] Time Frame: 1 Day, Location: None Selected Patient Instructions/Handouts: Hypoglycemia in a Person with Diabetes (ED) Activity/Diet/Wound Care/Special Instructions: Diet consistent Carb Activity as tolerated Patient to follow-up with hemodialysis per nephrology Discharge Disposition: TRANSFER TO SNF/ECF
[2017-12-25 17:04] LABS: Glucose,Whole Blood 217 mg/dL (75-99)
[2017-12-25] MEDS: ATORVASTATIN 10 MG TAB PO SCH (20:33)
[2017-12-25] MEDS: MULTIVITAMINS, THERA 1 EACH TAB PO SCH (20:33)
[2017-12-25 21:40] LABS: Glucose,Whole Blood 274 mg/dL (75-99)
[2017-12-26] MEDS: LEVOTHYROXINE 25 MCG TAB PO SCH (06:09)
[2017-12-26 06:15] VITALS: BP 135/65; PULSE 66; RESP 18; TEMP 97.6
[2017-12-26] MEDS: CARVEDILOL 12.5 MG TAB PO SCH (07:30)
[2017-12-26] MEDS: PANTOPRAZOLE 40 MG TABLET PO SCH (07:30)
[2017-12-26] MEDS: NIFEdipine XL 90 MG TAB.ER.24 PO SCH (07:30)
[2017-12-26] MEDS: ASPIRIN 81 MG PO SCH (07:30)
[2017-12-26] MEDS: LISINOPRIL 20 MG TAB PO SCH (07:30)
[2017-12-26] MEDS: predniSONE 20 MG TAB PO SCH (07:32)
[2017-12-26 07:43] LABS: Glucose,Whole Blood 165 mg/dL (75-99)
[2017-12-26] MEDS: INSULN ASP PRT/INSULIN ASPART 100 UNIT/ML 10 ML VIAL SQ SCH (08:24)
[2017-12-26] MEDS: INSULIN ASPART 100 UNIT/ML 1 ML 10 ML VIAL SQ SCH ×2 (08:25→13:08)
[2017-12-26] MEDS ORDERED: AZITHROMYCIN 500 MG TAB PO SCH (09:00)
--- NOTE | 2017-12-26 09:57 | P.PN ---
Subjective Progress Note Date: 12/26/17 Gerson Delvalle is an 82-year-old male who currently is admitted to a detention, who was sent to [facility] emergency room due to an episode of severe hypoglycemia with unresponsiveness, patient has a long history of insulin -dependent diabetes mellitus, however recently he had acute renal failure which resulted in end-stage renal disease with hemodialysis, patient was maintained on Humalog 75/25 55 units before dinner, he was seen 24 hours prior to this ER visit with an episode of hypoglycemia, at that time dose of insulin was decreased to 50 units, patient also had evidence of an area of pneumonia on his chest x-ray, he was started on Augmentin and was sent back to the detention, patient had an episode of severe hypoglycemia again he was reevaluated in emergency room and was admitted to medical floor. Patient was recently admitted to [facility] was acute kidney failure, he was seen by nephrology kidney biopsy revealed evidence of necrotizing and crescentic glomerulonephritis, he was transferred to [facility] for plasmapheresis, kidney function did not improve and currently patient is on hemodialysis. On 12/24/2017 patient is currently resting comfortably in bed. Patient denies any chest pain or shortness of breath. Patient denies nausea vomiting or diarrhea. Patient denies any urinary burning or frequency. Current blood sugar 180. Nephrology services have been consulted. On 12/25/2017 patient is currently resting comfortably in bed. Patient is getting dialysis today. Patient denies chest pain or shortness of breath. Patient denies nausea vomiting or diarrhea. On 12/26/2017 patient is currently alert and oriented 3 waiting for discharge to [facility]. This time patient denies chest pain or shortness breath. Patient denies nausea vomiting or diarrhea. Patient denies any urinary burning or frequency. Patient received dialysis with 2 L off yesterday. Awaiting on prior INSURANCE for placement at rehab Objective - Vital Signs Vital signs: Vital Signs Temp 97.6 F 12/26/17 06:14 Pulse 66 12/26/17 06:14 Resp 18 12/26/17 06:14 BP 135/65 12/26/17 06:14 Pulse Ox 94 L 12/26/17 06:14 Intake & Output 12/25/17 12/26/17 12/26/17 18:59 06:59 18:59 Intake Total 500 Balance 500 Weight 136.9 kg Intake: Oral 500 Other: Voiding Method Diaper Diaper Diaper Incontinent Incontinent Incontinent # Voids 0 0 - Exam In general patient is alert and oriented 3 in no apparent distress HEENT head normocephalic and atraumatic Neck is supple no JVD no goiter no lymphadenopathy Chest exam reveals a few scattered crackles bilaterally no wheezing Cardiac exam reveals regular heart sounds S1 and S2 no gallops no murmurs Abdomen is soft nontender no organomegaly with normal bowel sounds Extremity exam reveals minimal edema no cyanosis or clubbing Neurological examination reveals no gross focal deficit - Labs CBC & Chem 7: 12/25/17 08:27 12/25/17 08:19 Labs: Abnormal Lab Results - Last 24 Hours (Table) 12/25/17 12/25/17 12/25/17 Range/Units 08:19 12:03 16:59 BUN 53 H (9-20) mg/dL Creatinine 8.02 H* (0.66-1.25) mg/dL Glucose 170 H (74-99) mg/dL POC Glucose (mg/dL) 178 H 217 H (75-99) mg/dL Calcium 7.4 L (8.4-10.2) mg/dL AST 13 L (17-59) U/L Alkaline Phosphatase 33 L (38-126) U/L Total Protein 5.0 L (6.3-8.2) g/dL Albumin 2.9 L (3.5-5.0) g/dL 12/25/17 12/26/17 Range/Units 21:25 07:19 BUN (9-20) mg/dL Creatinine (0.66-1.25) mg/dL Glucose (74-99) mg/dL POC Glucose (mg/dL) 274 H 165 H (75-99) mg/dL Calcium (8.4-10.2) mg/dL AST (17-59) U/L Alkaline Phosphatase (38-126) U/L Total Protein (6.3-8.2) g/dL Albumin (3.5-5.0) g/dL Assessment and Plan Assessment: #1 recurrent episodes of hypoglycemia, at this time will discontinue Humalog Mix 75/25 50 units at bedtime, will start patient on 20 units before breakfast and 20 units before dinner, will monitor glucose closely and adjust dosage as needed. Blood sugar 180. Insulin adjusted to 70/30 twice a day plus sliding scale coverage with meals. #2 possible pneumonia diagnosed recently in the emergency room patient was started at that time on oral Augmentin. At this time will start patient on Rocephin and Zithromax IV, will recheck chest x-ray PA and lateral. X-ray completed showing worsening changes of congestive heart failure. Repeat chest x -ray ordered for tomorrow after dialysis today.Chest x-ray will be ordered for tomorrow at detention #3 end-stage renal disease on hemodialysis. 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 Hemoglobin 7.1. No signs of bleeding per nursing staff. Will order stool occult blood. Hemoglobin 7.7. DVT prophylaxis SCDs, GI prophylaxis Protonix I performed an examination of the patient and discussed their management with the Nurse Practitioner. I have reviewed the Nurse Practitioner's notes and agree with the documented findings and plan of care Patient discharged yesterday on 12/25/2017. Awaiting on prior off from insurance for placement at [facility].
[2017-12-26 10:33] LABS: Basophils % (A) 0 %; Eosinophils # (A) 0.1 k/uL (0-0.7); Eosinophils % (A) 1 %; HCT 22.8 % (39.0-53.0); HGB 7.5 gm/dL (13.0-17.5); Lymphocytes # (A) 0.3 k/uL (1.0-4.8); Lymphocytes % (A) 3 %; MCH 28.5 pg (25.0-35.0); MCHC 32.9 g/dL (31.0-37.0); MCV 86.6 fL (80.0-100.0); Mean Platelet Volume 6.4; Monocytes # (A) 0.5 k/uL (0-1.0); Monocytes % (A) 6 %; Neutrophils # (A) 7.4 k/uL (1.3-7.7); Neutrophils % (A) 89 %; Platelet Count 246 k/uL (150-450); RBC 2.63 m/uL (4.30-5.90); RDW 15.7 % (11.5-15.5); WBC 8.3 k/uL (3.8-10.6)
[2017-12-26 10:55] LABS: Albumin 2.9 g/dL (3.5-5.0); Calcium 7.5 mg/dL (8.4-10.2); Potassium 4.9 mmol/L (3.5-5.1); Total Bilirubin 0.3 mg/dL (0.2-1.3)
[2017-12-26 12:47] LABS: Glucose,Whole Blood 167 mg/dL (75-99)
--- NOTE | 2017-12-26 22:19 | PN ---
PROGRESS NOTE Patient was seen this morning for acute kidney injury, currently hemodialysis- dependent. Etiology is necrotizing crescentic GN, status post plasmapheresis, currently maintained on hemodialysis. Patient received one dose of Rituxan about 2 weeks ago. He is scheduled to have another dose this admission; however, it appears that the patient will not be able to receive his Rituxan as inpatient and he will have to have it as outpatient. On examination this morning, blood pressure was 135/65, heart rate 66 per minute. He was afebrile. EXAMINATION OF THE HEART: S1, S2. EXAMINATION OF LUNGS: Bilateral breath sounds are heard. ABDOMEN: Soft, non-tender. Examination of lower extremities shows trace edema bilaterally. 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 Labs from this morning show sodium 139, potassium 4.9, BUN 45, serum creatinine 6.0. Hemoglobin was 7.5 g/dL. ASSESSMENT: 1. Acute kidney injury, currently hemodialysis-dependent. Patient will be maintained on hemodialysis as outpatient. 2. Necrotizing crescentic glomerulonephritis, status post plasmapheresis, scheduled to have 3 more doses of Rituxan on a weekly basis. Patient could not receive the Rituxan as inpatient. He will have it as outpatient next week. 3. Anemia, multifactorial. No active bleeding noted. 4. Possible pneumonia, maintained on antibiotics, currently improved. PLAN: Patient is stable for discharge. Follow up for dialysis as outpatient and continue Rituxan as outpatient. MMODL / IJN: [id number] /
== END 2017-12-26 14:20 ==
LOC: EC 05:34 → 4MS4W 11:56
PROVIDERS: ADMIT Internal Medicine; ATTEND Internal Medicine
DX: E11.649 Type 2 diabetes mellitus with hypoglycemia without coma (principal); E11.22 Type 2 diabetes mellitus with diabetic chronic kidney disease; I13.2 Hypertensive heart and chronic kidney disease with heart failure and with stage 5 chronic kidney disease, or end stage renal disease; I50.9 Heart failure, unspecified; N18.6 End stage renal disease; Z99.2 Dependence on renal dialysis; N05.7 Unspecified nephritic syndrome with diffuse crescentic glomerulonephritis; N05.8 Unspecified nephritic syndrome with other morphologic changes; I25.10 Atherosclerotic heart disease of native coronary artery without angina pectoris; D64.9 Anemia, unspecified; E78.5 Hyperlipidemia, unspecified; E07.9 Disorder of thyroid, unspecified; Z86.010 Personal history of colon polyps; Z85.46 Personal history of malignant neoplasm of prostate; Z82.49 Family history of ischemic heart disease and other diseases of the circulatory system; Z79.4 Long term (current) use of insulin; Z79.890 Hormone replacement therapy; Z79.899 Other long term (current) drug therapy; Z79.84 Long term (current) use of oral hypoglycemic drugs; Z79.82 Long term (current) use of aspirin; E66.9 Obesity, unspecified; Z74.01 Bed confinement status; M79.89 Other specified soft tissue disorders; Z68.41 Body mass index [BMI] 40.0-44.9, adult; R19.7 Diarrhea, unspecified; N17.9 Acute kidney failure, unspecified; L92.9 Granulomatous disorder of the skin and subcutaneous tissue, unspecified; M30.0 Polyarteritis nodosa; I77.6 Arteritis, unspecified; Z79.52 Long term (current) use of systemic steroids; Z95.2 Presence of prosthetic heart valve; I35.0 Nonrheumatic aortic (valve) stenosis
CPT/HCPCS: 96365; 96366 ×4; 96367; 96361; 96375; 99285; 36415; 93005; 97116; 97163; 97166; 80053 ×4; 82550; 82553; 83605; 83735; 84100 ×2; 84484; 85025 ×4; 85610; 85730; 86706; 87340; 81001; 87324; 87086; 71046; G0378 ×4; J2405; J0456 ×3; J0696 ×4; J7512 ×3; 90935

== ENCOUNTER 2018-01-25 06:48 | Inpatient (IN) | payer MEDICARE ==
[2018-01-25] MEDS ORDERED: SODIUM CHLORIDE 0.9% 500 ML 500 ML IV STA (07:19)
[2018-01-25 08:00] LABS: Anisocytosis Slight; Basophils % (A) 0 %; Eosinophils # (A) 0.2 k/uL (0-0.7); Eosinophils % (A) 2 %; HCT 26.2 % (39.0-53.0); HGB 8.4 gm/dL (13.0-17.5); Lymphocytes # (A) 0.7 k/uL (1.0-4.8); Lymphocytes % (A) 8 %; MCH 27.6 pg (25.0-35.0); MCHC 32.1 g/dL (31.0-37.0); MCV 86.1 fL (80.0-100.0); Mean Platelet Volume 6.3; Monocytes # (A) 0.8 k/uL (0-1.0); Monocytes % (A) 9 %; Neutrophils # (A) 7.6 k/uL (1.3-7.7); Neutrophils % (A) 79 %; Platelet Count 345 k/uL (150-450); RBC 3.04 m/uL (4.30-5.90); RDW 16.3 % (11.5-15.5); WBC 9.5 k/uL (3.8-10.6)
--- NOTE | 2018-01-25 08:04 | XR ---
EXAMINATION TYPE: XR chest 2V DATE OF EXAM: 01/25/2018 COMPARISON: 12/24/2017 HISTORY: Shortness of breath TECHNIQUE: Frontal and lateral views of the chest are obtained. FINDINGS: Scattered senescent parenchymal changes noted. Hyperinflation compatible with COPD. There are scattered patchy infiltrates noted the greatest throughout the right lung. Correlate for un derlying pneumonia. The heart size is stable. Mediastinal structures are stable and grossly unremarkable. No evidence for hilar prominence. Degenerative changes dorsal spine. IMPRESSION: 1. There are scattered patchy infiltrates noted the greatest throughout the right lung. Correlate for underlying pneumonia.
[2018-01-25 08:11] LABS: Partial Thromboplastin Time 24.3 sec (22.0-30.0); Prothrombin Time 10.8 sec (9.0-12.0)
[2018-01-25 08:14] LABS: Albumin 3.1 g/dL (3.5-5.0); Calcium 7.9 mg/dL (8.4-10.2); Magnesium 1.8 mg/dL (1.6-2.3); Potassium 4.6 mmol/L (3.5-5.1); Total Bilirubin 0.4 mg/dL (0.2-1.3); Total Protein 5.4 g/dL (6.3-8.2)
--- NOTE | 2018-01-25 08:20 | ED ---
General Adult HPI - General Chief complaint: Syncope Stated complaint: weakness Time Seen by Provider: 01/25/18 07:08 Source: patient, EMS, RN notes reviewed Mode of arrival: EMS Limitations: no limitations - History of Present Illness Initial comments: 82-year-old male present emergency Department chief complaint of near syncope. Patient states that he felt weak, run down this morning. Patient states that he was trying to walk states that he nearly passed out. Family member was able to try to catch him but he fell softly to the ground there is no head injury no loss conscious. Patient states she still feels weak, run down. Patient states his been in another hospital for renal failure, denies weakness, difficulty with blood sugar. Patient has long-standing diabetic. Patient has dialysis on Monday. Patient states she is due for dialysis today. Patient has not had any recent weight gain he has had a cough which is slightly productive at times. - Related Data Home Medications Medication Instructions Recorded Confirmed Levothyroxine Sodium [Synthroid] 25 mcg PO DAILY 05/05/14 01/25/18 Simvastatin [Zocor] 20 mg PO HS 05/05/14 01/25/18 Ramipril [Altace] 10 mg PO DAILY 12/22/17 01/25/18 Carvedilol [Coreg*] 12.5 mg PO BID 12/23/17 01/25/18 NIFEdipine [NIFEdipine ER] 90 mg PO DAILY 12/23/17 01/25/18 Insulin Lispro [humaLOG Kwikpen] See Protocol SQ DAILY 01/25/18 01/25/18 Insulin NPL/Insulin Lispro 15 unit SQ BID 01/25/18 01/25/18 [humaLOG MIX 75-25 VIAL] Allergies Allergy/AdvReac Type Severity Reaction Status Date / Time No Known Allergies Allergy Verified 01/25/18 08:52 Review of Systems ROS Statement: Those systems with pertinent positive or pertinent negative responses have been documented in the HPI. ROS Other: All systems not noted in ROS Statement are negative. Past Medical History Past Medical History: Cancer, Diabetes Mellitus, Hyperlipidemia, Hypertension, Prostate Disorder, Renal Disease, Thyroid Disorder Additional Past Medical History / Comment(s): AORTIC STENOSIS, prostate cancer, past colon polyps, renal disease on hemodialysis 3x weekly History of Any Multi-Drug Resistant Organisms: None Reported Past Surgical History: Cardiac Valve Replacement, Heart Catheterization, Hernia Repair, Prostate Surgery, Tonsillectomy Additional Past Surgical History / Comment(s): COLON POLYPS. ariel cataracts, upper dental implants,prostatectomy, hernia repair. HEART CATH ON 05/06/2014. total rt knee replacement. 06-16-14 aortic valve replacement(tissue valve) Past Anesthesia/Blood Transfusion Reactions: No Reported Reaction Past Psychological History: No Psychological Hx Reported Smoking Status: Never smoker Past Alcohol Use History: None Reported Additional Past Alcohol Use History / Comment(s): GLASS OF WINE PER DAY Past Drug Use History: None Reported - Past Family History Father Family Medical History: No Reported History Additional Family Medical History / Comment(s): age 92.5 years old- from old age Mother Family Medical History: Myocardial Infarction ([place]) General Exam Limitations: no limitations General appearance: alert, in no apparent distress Head exam: Present: atraumatic, normocephalic, normal inspection Eye exam: Present: normal appearance, PERRL, EOMI. Absent: scleral icterus, conjunctival injection, periorbital swelling ENT exam: Present: normal exam, normal oropharynx, mucous membranes moist Neck exam: Present: normal inspection, full ROM. Absent: tenderness, meningismus, lymphadenopathy Respiratory exam: Present: rhonchi. Absent: respiratory distress, wheezes, rales, stridor Cardiovascular Exam: Present: regular rate, normal rhythm, normal heart sounds. Absent: systolic murmur, diastolic murmur, rubs, gallop, clicks GI/Abdominal exam: Present: soft, normal bowel sounds. Absent: distended, tenderness, guarding, rebound, rigid Neurological exam: Present: alert, oriented X3, CN II-XII intact Skin exam: Present: warm, dry, intact, normal color. Absent: rash Course Vital Signs 01/25/18 01/25/18 01/25/18 06:49 08:00 08:30 Temperature 97.9 F Pulse Rate 66 64 64 Respiratory 18 18 16 Rate Blood Pressure 95/48 105/54 107/55 O2 Sat by Pulse 94 L 97 96 Oximetry EKG Findings - EKG Comments: EKG Findings:: EKG performed at 6:59 T rhythm with first-degree block nonspecific ST and T-wave abnormality with rate of 66 MN 260 QRS 82 QT/QTC 422/ 442 Medical Decision Making - Medical Decision Making 82-year-old male present emergency from for near syncopal episode. Patient had lab work, EKG, chest x-ray. Patient's found to have right-sided pneumonia. - Lab Data Result diagrams: 01/25/18 07:37 01/25/18 07:37 Lab Results 01/25/18 01/25/18 01/25/18 Range/Units 07:37 07:37 07:37 WBC 9.5 (3.8-10.6) k/uL RBC 3.04 L (4.30-5.90) m/uL Hgb 8.4 L (13.0-17.5) gm/dL Hct 26.2 L (39.0-53.0) % MCV 86.1 (80.0-100.0) fL MCH 27.6 (25.0-35.0) pg MCHC 32.1 (31.0-37.0) g/dL RDW 16.3 H (11.5-15.5) % Plt Count 345 (150-450) k/uL Neutrophils % 79 % Lymphocytes % 8 % Monocytes % 9 % Eosinophils % 2 % Basophils % 0 % Neutrophils # 7.6 (1.3-7.7) k/uL Lymphocytes # 0.7 L (1.0-4.8) k/uL Monocytes # 0.8 (0-1.0) k/uL Eosinophils # 0.2 (0-0.7) k/uL Basophils # 0.0 (0-0.2) k/uL Anisocytosis Slight PT (9.0-12.0) sec INR (<1.2) APTT (22.0-30.0) sec Sodium 137 (137-145) mmol/L Potassium 4.6 (3.5-5.1) mmol/L Chloride 97 L (98-107) mmol/L Carbon Dioxide 29 (22-30) mmol/L Anion Gap 11 mmol/L BUN 39 H (9-20) mg/dL Creatinine 6.81 H (0.66-1.25) mg/dL Est GFR (CKD-EPI)AfAm 8 (>60 ml/min/1.73 sqM) Est GFR (CKD-EPI)NonAf 7 (>60 ml/min/1.73 sqM) Glucose 149 H (74-99) mg/dL Calcium 7.9 L (8.4-10.2) mg/dL Magnesium 1.8 (1.6-2.3) mg/dL Total Bilirubin 0.4 (0.2-1.3) mg/dL AST 15 L (17-59) U/L ALT 19 L (21-72) U/L Alkaline Phosphatase 50 (38-126) U/L Total Creatine Kinase 35 L (55-170) U/L CK-MB (CK-2) 0.6 (0.0-2.4) ng/mL CK-MB (CK-2) Rel Index 1.7 Troponin I 0.037 H* (0.000-0.034) ng/mL Total Protein 5.4 L (6.3-8.2) g/dL Albumin 3.1 L (3.5-5.0) g/dL 01/25/18 Range/Units 07:37 WBC (3.8-10.6) k/uL RBC (4.30-5.90) m/uL Hgb (13.0-17.5) gm/dL Hct (39.0-53.0) % MCV (80.0-100.0) fL MCH (25.0-35.0) pg MCHC (31.0-37.0) g/dL RDW (11.5-15.5) % Plt Count (150-450) k/uL Neutrophils % % Lymphocytes % % Monocytes % % Eosinophils % % Basophils % % Neutrophils # (1.3-7.7) k/uL Lymphocytes # (1.0-4.8) k/uL Monocytes # (0-1.0) k/uL Eosinophils # (0-0.7) k/uL Basophils # (0-0.2) k/uL Anisocytosis PT 10.8 (9.0-12.0) sec INR 1.0 (<1.2) APTT 24.3 (22.0-30.0) sec Sodium (137-145) mmol/L Potassium (3.5-5.1) mmol/L Chloride (98-107) mmol/L Carbon Dioxide (22-30) mmol/L Anion Gap mmol/L BUN (9-20) mg/dL Creatinine (0.66-1.25) mg/dL Est GFR (CKD-EPI)AfAm (>60 ml/min/1.73 sqM) Est GFR (CKD-EPI)NonAf (>60 ml/min/1.73 sqM) Glucose (74-99) mg/dL Calcium (8.4-10.2) mg/dL Magnesium (1.6-2.3) mg/dL Total Bilirubin (0.2-1.3) mg/dL AST (17-59) U/L ALT (21-72) U/L Alkaline Phosphatase (38-126) U/L Total Creatine Kinase (55-170) U/L CK-MB (CK-2) (0.0-2.4) ng/mL CK-MB (CK-2) Rel Index Troponin I (0.000-0.034) ng/mL Total Protein (6.3-8.2) g/dL Albumin (3.5-5.0) g/dL Disposition Clinical Impression: Near syncope, Pneumonia, Hypotension, Chronic renal failure Disposition: ADMITTED IP TO THIS HOSP Condition: Fair Referrals: Jomar Rangel MD [Primary Care Provider] - 1-2 days
[2018-01-25 08:51] LABS: Creatine Kinase MB 0.6 ng/mL (0.0-2.4)
[2018-01-25 08:53] LABS: Troponin I 0.037 ng/mL (0.000-0.034)
[2018-01-25] MEDS ORDERED: LEVOFLOXACIN 750MG-D5W PMX 750 MG in DEXTROSE/WATER 1 150ML.BAG IVPB STA (09:29)
[2018-01-25] MEDS ORDERED: PNEUMONIA PROTOCOL UTILIZED 1 EACH MISC PO PRN (09:29)
[2018-01-25] MEDS ORDERED: PIPERACILLIN-TAZOBACTAM 3.375 GM in SODIUM CHLORIDE 0.9% 100 ML IVPB SCH (10:00)
[2018-01-25 11:21] LABS: Glucose,Whole Blood 183 mg/dL (75-99)
[2018-01-25] MEDS: PIPERACILLIN-TAZOBACTAM 3.375 GM in SODIUM CHLORIDE 0.9% 100 ML IVPB SCH ×2 (13:03→21:54)
[2018-01-25 13:41] LABS: Creatine Kinase MB 0.6 ng/mL (0.0-2.4)
--- NOTE | 2018-01-25 14:11 | P.HPIM ---
History of Present Illness H&P Date: 01/25/18 Chief Complaint: Shortness of breath This is an 82-year-old male patient presented to the emergency room wit complaints of increased weakness and near syncope episode. Patient has a known past medical history of exercising and concentric, nephritis causing end-stage renal disease. Patient does require dialysis Monday. Additional medical history includes insulin-dependent diabetes mellitus, coronary artery disease, hypertension, and anemia. Chest x-ray completed showing scattered patchy infiltrates noted the greatest throughout the right lung. Correlate for underlying pneumonia. Dr. Do has been consulted for pulmonary services. Patient planning to receive dialysis today on his normal schedule. Dr. Hicks has been consulted for nephrology services. Troponin was slightly elevated at your 0.037. Will order repeat cardiac enzymes at this time. EKG completed showing sinus rhythm with first-degree AV block. Minimal voltage criteria for LVH, may be normal variant. Patient also noted to have right foot ulcer. Dr. Saenz will be consulted. At this time patient denies chest pain or shortness breath. Patient denies nausea vomiting or diarrhea. 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 Other hx: IDDM type II, ESRD with hemodialysis, current wound on R heel , prostrate cancer with surgery, iron anemia, benign colon polyps, diverticular disease, hypothyroid, aortic stenosis with valve replacement. History of Any Multi-Drug Resistant Organisms: None Reported Past Surgical History: Cardiac Valve Replacement, Heart Catheterization, Hernia Repair, Joint Replacement, Prostate Surgery, Tonsillectomy Additional Past Surgical History / Comment(s): R hemodialysis catheter, 2014 aortic valve replaced, prostatectomy, colonoscopy with benign polypectomy, bilateral cataract removals, L eye retinal surgery, total R knee replacement. Past Anesthesia/Blood Transfusion Reactions: No Reported Reaction Smoking Status: Former smoker - Past Family History Father Family Medical History: No Reported History Additional Family Medical History / Comment(s): age 92.5 years old- from old age Mother Family Medical History: Myocardial Infarction ([place]) Medications and Allergies Home Medications Medication Instructions Recorded Confirmed Type Levothyroxine Sodium [Synthroid] 25 mcg PO DAILY 05/05/14 01/25/18 History Simvastatin [Zocor] 20 mg PO HS 05/05/14 01/25/18 History Ramipril [Altace] 10 mg PO DAILY 12/22/17 01/25/18 History Carvedilol [Coreg*] 12.5 mg PO BID 12/23/17 01/25/18 History NIFEdipine [NIFEdipine ER] 90 mg PO DAILY 12/23/17 01/25/18 History Insulin Lispro [humaLOG Kwikpen] See Protocol SQ DAILY 01/25/18 01/25/18 History Insulin NPL/Insulin Lispro 15 unit SQ BID 01/25/18 01/25/18 History [humaLOG MIX 75-25 VIAL] Allergies Allergy/AdvReac Type Severity Reaction Status Date / Time No Known Allergies Allergy Verified 01/25/18 08:52 Physical Exam Vitals: Vital Signs Temp Pulse Pulse Resp BP BP Pulse Ox 01/25/18 11:02 97.5 F L 65 18 102/42 97 01/25/18 09:30 97.9 F 64 19 111/58 94 L 01/25/18 09:00 62 16 107/55 96 01/25/18 08:30 64 16 107/55 96 01/25/18 08:00 97.9 F 64 18 105/54 97 01/25/18 06:49 66 18 95/48 94 L Intake and Output 01/24/18 01/25/18 01/25/18 22:59 06:59 14:59 Other: Weight 106.594 kg Head normocephalic Neck supple Lungs clear to auscultation bilaterally no wheezing or crackles Heart regular rate and rhythm S1-S2, no rub or gallop Abdomen is soft nontender nondistended positive bowel sounds no hepatosplenomegaly Extremities no edema. Right foot ulcer noted unstageable. Neuro alert and orientated to 3 Results CBC & Chem 7: 01/25/18 07:37 01/25/18 07:37 Labs: Abnormal Lab Results - Last 24 Hours (Table) 01/25/18 01/25/18 01/25/18 Range/Units 07:37 07:37 07:37 RBC 3.04 L (4.30-5.90) m/uL Hgb 8.4 L (13.0-17.5) gm/dL Hct 26.2 L (39.0-53.0) % RDW 16.3 H (11.5-15.5) % Lymphocytes # 0.7 L (1.0-4.8) k/uL Chloride 97 L (98-107) mmol/L BUN 39 H (9-20) mg/dL Creatinine 6.81 H (0.66-1.25) mg/dL Glucose 149 H (74-99) mg/dL POC Glucose (mg/dL) (75-99) mg/dL Calcium 7.9 L (8.4-10.2) mg/dL AST 15 L (17-59) U/L ALT 19 L (21-72) U/L Total Creatine Kinase 35 L (55-170) U/L Troponin I 0.037 H* (0.000-0.034) ng/mL Total Protein 5.4 L (6.3-8.2) g/dL Albumin 3.1 L (3.5-5.0) g/dL 01/25/18 01/25/18 Range/Units 11:19 12:45 RBC (4.30-5.90) m/uL Hgb (13.0-17.5) gm/dL Hct (39.0-53.0) % RDW (11.5-15.5) % Lymphocytes # (1.0-4.8) k/uL Chloride (98-107) mmol/L BUN (9-20) mg/dL Creatinine (0.66-1.25) mg/dL Glucose (74-99) mg/dL POC Glucose (mg/dL) 183 H (75-99) mg/dL Calcium (8.4-10.2) mg/dL AST (17-59) U/L ALT (21-72) U/L Total Creatine Kinase 34 L (55-170) U/L Troponin I (0.000-0.034) ng/mL Total Protein (6.3-8.2) g/dL Albumin (3.5-5.0) g/dL Thrombosis Risk Factor Assmnt - Choose All That Apply Any of the Below Risk Factors Present?: Yes Each Factor Represents 1 point: Obesity (BMI >25), Serious lung disease incl. pneumonia (< 1month) Other Risk Factors: Yes Each Risk Factor Represents 2 Points: Central venous access, Malignancy Each Risk Factor Represents 3 Points: Age 75 years or older Other congenital or acquired thrombophilia - If yes, enter type in comment: No Thrombosis Risk Factor Assessment Total Risk Factor Score: 9 Thrombosis Risk Factor Assessment Level: High Risk Assessment and Plan Assessment: 1. Increased possibly due to pneumonia. Chest x-ray completed showing scattered patchy infiltrates notes the greatest throughout the right lung correlate for underlying pneumonia. Patient started on Zosyn and Levaquin. Dr. Do filtrevor for pulmonary services. Repeat 2 view chest x-ray ordered for a.m. 2. Right foot ulcer. Dr. Saenz will be consulted for evaluation 3. 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 Dr. Hicks has been consulted. Patient currently on Monday hemodialysis schedule 4. mildly Elevated cardiac enzymes. Troponin slightly elevated 0.037. EKG completed showing sinus rhythm with first-degree AV block. Minimal voltage criteria for LVH, maybe normal variant. Non-specific ST and T-wave abnormality 5. Insulin-dependent diabetes mellitus type 2. Home meds resumed 6. History of coronary artery disease 7. History of essential hypertension 8. Anemia chronic disease. Hemoglobin 8.4 DVT prophylaxis heparin. GI prophylaxis Protonix. A.m. labs ordered. Chest x-ray two-view ordered Physical therapy consult placed Time with Patient: Greater than 30 (I performed an examination of the patient and discussed their management with the Nurse Practitioner. I have reviewed the Nurse Practitioner's notes and agree with the documented findings and plan of care. Greater than 60% of the total time spent in counseling and coordination of care)
--- NOTE | 2018-01-25 17:28 | CONS ---
CONSULTATION This is an 82-year-old male who presented to the emergency department with complaints of having fallen at home. He apparently was attempting to walk with his walker and fell. He was on the ground for about 15 minutes. Apparently, EMS was called to bring him into the hospital to be evaluated. He just recently got discharged from [facility]. The patient was seen by me back in November. Anyway, the patient apparently did not lose consciousness. There was no head injury or trauma. The patient felt apparently weak. The patient was brought into the emergency room where he was evaluated. The patient was admitted to the hospital. Admission diagnosis was that of weakness. He is a Monday, , Monday dialysis patient. His last dialysis was on Monday. I was consulted to rule out pneumonia. The patient's chest x-ray showed diffuse bilateral infiltrates and the radiologist suggested the possibility of pneumonia. The patient really lacks all pneumonic complaints. No fever, no chills. He is not coughing. Not producing any phlegm. Not short of breath. He is breathing normally. Not requiring any supplemental oxygen. His oxygenation is excellent given his x-ray findings. The only way this could be explained is by this being primarily transudative fluid, i.e. fluid overload from not having hemodialysis today. Hence, I do not believe the patient actually has inflammatory/infectious process going on his lungs. HOME MEDICATIONS: Include Synthroid, Zocor, Altace, Coreg, Nifedipine, and insulin. ALLERGIES: Denied. MEDICAL HISTORY: Diabetes, hyperlipidemia, hypertension, hypothyroidism, chronic kidney disease with 3 time a week hemodialysis on Monday, , Monday, prostate cancer, aortic stenosis status post aortic valve replacement, colon polyps. SURGICAL HISTORY: Includes among other things prostate prostatectomy, tonsillectomy, hernia repair, heart catheterization and aortic valve replacement. He has also had cataract surgery, dental implants, hernia repair, heart catheterization and right total knee replacement. His aortic valve replacement was done on June 2014 and he had a tissue valve placed. SOCIAL HISTORY: Is negative tobacco use. Denies any significant alcohol use other than a 1 glass of wine per day. No illicit drug use. FAMILY HISTORY: Positive for mother with myocardial infarction. REVIEW OF SYSTEMS: CONSTITUTIONAL: Weakness. NEUROLOGIC negative. HEENT negative. CARDIOVASCULAR: Negative. PULMONARY is negative. GI/ negative. RHEUMATOLOGIC, HEMATOLOGIC, negative. ENDOCRINOLOGIC: Negative. PHYSICAL EXAMINATION: VITAL SIGNS: Current vital signs are reviewed. The patient is afebrile. Has been afebrile. Heart rate is 64, respiratory rate 16, blood pressure 107/55, mean 72, room air saturation 97%. The patient is not manifesting any signs of respiratory distress. There is no use of accessory muscles. No audible wheezing. No nasal flaring. He appears very comfortable. HEENT examination is grossly unremarkable. Mucous membranes are moist. No oral lesions. No supplemental oxygen needed. NECK: Supple. Full range of motion. No adenopathy or thyromegaly. Cardiovascular examination reveals regular rhythm and rate. S1, S2 normal. Heart rate 64. No murmur. No S3, S4. LUNGS: A few crackles bilaterally. No wheezes or rhonchi. Breath sounds equal bilaterally. Abdomen is soft. Bowel sounds are heard. No masses or tenderness. Extremities are intact. No cyanosis, clubbing, or edema. Skin without rash. Neurologic examination is brief but nonfocal. The patient is a little slow in his speech. Chest x-ray is evaluated. It does show diffuse bilateral infiltrates. Some areas look more consolidated on the right side than on the left. Again, this could be consistent with asymmetric pulmonary edema. Clinically, I do not suspect pneumonia. His dialysis catheter is noted. LABS: Noted. White count 9.5, hemoglobin 8.4, hematocrit 26.2, platelet count 345,000. PT/INR PTT normal. Sodium, potassium normal, chloride 97, CO2 29, BUN and creatinine were 39 and 6.81. Glucose was normal. The rest of the labs look okay. N terminal proBNP is quite elevated 18,300. His troponin was 0.037. The rest of the labs are reviewed. Medications are reviewed. He is currently on Zosyn, Levaquin. I told the nurse practitioner to tell the primary service that in my opinion, the antibiotics could be discontinued or significantly deescalated. ASSESSMENT: 1. No evidence of pneumonia in my opinion. 2. Fluid overload from the patient's end-stage renal disease. 3. Three time a week hemodialysis Monday, , Monday. 4. 5. History of prostate cancer status post prostatectomy. 6. Diabetes mellitus. 7. Hyperlipidemia. 8. Hypertension. 9. Hypothyroidism. 10.Aortic stenosis status post aortic valve replacement with a tissue aortic valve. 11.Multiple other medical problems and comorbidities. PLAN: The patient is doing well in my opinion. The patient could be discharged home in the near future. No additional recommendations are made. I do not believe the patient has pneumonia. Antibiotics can be discontinued or significantly deescalated. Additional recommendations and suggestions are forthcoming. Our findings were passed onto the nurse practitioner. GERDA / THOMASN: [id number] /
[2018-01-25] MEDS: CARVEDILOL 12.5 MG TAB PO SCH (17:29)
[2018-01-25 17:36] LABS: Glucose,Whole Blood 147 mg/dL (75-99)
[2018-01-25 18:04] LABS: Hemoglobin A1C 6.7 % (4.0-6.0)
[2018-01-25 20:35] LABS: Appearance,Urine Clear (Clear); Bilirubin,Urine Negative (Negative); Blood,Urine Moderate (Negative); Color,Urine Yellow; Glucose,Urine (UA) Negative (Negative); Ketones,Urine Negative (Negative); Leukocyte Esterase,Urine Negative (Negative); Mucus,Urine Rare /hpf; Nitrite,Urine Negative (Negative); Protein,Urine 3+ (Negative); RBC,Urine 67 /hpf (0-5); Specific Gravity,Urine 1.015 (1.001-1.035); Urobilinogen,Urine <2.0 mg/dL (<2.0); WBC,Urine 6 /hpf (0-5)
[2018-01-25 20:35] LABS: Glucose,Whole Blood 211 mg/dL (75-99)
[2018-01-25 21:20] LABS: Creatine Kinase MB 0.4 ng/mL (0.0-2.4)
[2018-01-25] MEDS: INSULN ASP PRT/INSULIN ASPART 100 UNIT/ML 10 ML VIAL SQ SCH (21:54)
[2018-01-25] MEDS: ATORVASTATIN 10 MG TAB PO SCH (21:54)
[2018-01-25] MEDS: HEPARIN SODIUM,PORCINE 5,000 UNIT/ML 1 ML VIAL SQ SCH (21:54)
--- NOTE | 2018-01-25 23:06 | P.CONS ---
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 He apparently had glomerulonephritis as well as ATN, he was transferred to outside hospital for plasmapheresis. Despite this he did not have recovery of his renal function and is now been on hemodialysis via the right anterior chest wall Rangel catheter. He relates his been doing modestly well, he lives independently but does have family members and caregivers that are around. It is related that he was outside there is gradually became weak he had a near syncopal event and was gently lowered to the ground. He was brought to hospital for evaluation. He does appear he missed dialysis because he was ill. Infectious disease consultation request regarding the noted ulceration on to the right heel. Patient relates he still feels weak Review of Systems 82-year-old male HEENT:Denies headache or acute visual change. Denies sinus or mouth discomforts. Denies neck stiffness or pain. Denies significant oral cavity pain. Denies difficulty on swallowing. Lungs: Denies significant shortness of breath, cough, sputum production, or hemoptysis. Cardiovascular: Denies significant shortness of breath, chest pain, chest wall pain, orthopnea, dyspnea on exertion, syncope Gastrointestinal:Denies nausea, vomiting, diarrhea, constipation, hematemesis, melena, hematochezia. No no significant change of bowel habit noticed. Musculoskeletal: denies significant myalgias or arthralgias. No new joint swelling. Denies new back pain. Skin: No ulcer to the right heel that is not painful Neuro: Presyncope is a walker to ambulate Psychiatric:Denies anxiety or depression. 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 Other hx: IDDM type II, ESRD with hemodialysis, current wound on R heel , prostrate cancer with surgery, iron anemia, benign colon polyps, diverticular disease, hypothyroid, aortic stenosis with valve replacement. History of Any Multi-Drug Resistant Organisms: None Reported Past Surgical History: Cardiac Valve Replacement, Heart Catheterization, Hernia Repair, Joint Replacement, Prostate Surgery, Tonsillectomy Additional Past Surgical History / Comment(s): R hemodialysis catheter, 2014 aortic valve replaced, prostatectomy, colonoscopy with benign polypectomy, bilateral cataract removals, L eye retinal surgery, total R knee replacement. Past Anesthesia/Blood Transfusion Reactions: No Reported Reaction Additional Psychological History / Comment(s): Single and lives independently. Has caregivers. Stopped smoking several years ago. 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 No experience. No recent travel history. No animals in the home Smoking Status: Former smoker - Past Family History Father Family Medical History: No Reported History Additional Family Medical History / Comment(s): age 92.5 years old- from old age Mother Family Medical History: Myocardial Infarction (MA) Medications and Allergies Home Medications and Allergies Comment(s): Current Medications Atorvastatin Calcium (Lipitor) 10 mg PO HS [facility] Last Admin: 18 21:54 Dose: 10 mg Carvedilol (Coreg) 12.5 mg PO AC-BID [facility] Last Admin: 01/25/18 17:29 Dose: 12.5 mg Heparin Sodium (Porcine) (Heparin) 5,000 unit SQ Q12HR [facility] Last Admin: 01/25/18 21:54 Dose: 5,000 unit Piperacillin Sod/Tazobactam (Sod 3.375 gm/ Sodium Chloride) 100 mls @ 25 mls/ hr IVPB Q12H [facility] Last Admin: 01/25/18 21:54 Dose: 25 mls/hr Insulin Aspart (Novolog Mix 70-30 Vial) 15 unit SQ BID [facility] Last Admin: 01/25/18 21:54 Dose: 15 unit Levothyroxine Sodium (Synthroid) 25 mcg PO 0630 [facility] Miscellaneous Information (Pneumonia Protocol Utilized) 1 each PO ONCE PRN PRN Reason: Per Protocol Nifedipine (Procardia Xl) 90 mg PO DAILY [facility] Pantoprazole Sodium (Protonix) 40 mg PO AC-BRKFST [facility] Home Medications Medication Instructions Recorded Confirmed Type Levothyroxine Sodium [Synthroid] 25 mcg PO DAILY 05/05/14 01/25/18 History Simvastatin [Zocor] 20 mg PO HS 05/05/14 01/25/18 History Ramipril [Altace] 10 mg PO DAILY 12/22/17 01/25/18 History Carvedilol [Coreg*] 12.5 mg PO BID 12/23/17 01/25/18 History NIFEdipine [NIFEdipine ER] 90 mg PO DAILY 12/23/17 01/25/18 History Insulin Lispro [humaLOG Kwikpen] See Protocol SQ DAILY 01/25/18 01/25/18 History Insulin NPL/Insulin Lispro 15 unit SQ BID 01/25/18 01/25/18 History [humaLOG MIX 75-25 VIAL] Allergies Allergy/AdvReac Type Severity Reaction Status Date / Time No Known Allergies Allergy Verified 01/25/18 08:52 Physical Exam Vitals: Vital Signs Temp Pulse Pulse Resp BP BP Pulse Ox 01/25/18 17:26 70 123/62 01/25/18 11:02 97.5 F L 65 18 102/42 97 01/25/18 09:30 97.9 F 64 19 111/58 94 L 01/25/18 09:00 62 16 107/55 96 01/25/18 08:30 64 16 107/55 96 01/25/18 08:00 97.9 F 64 18 105/54 97 01/25/18 06:49 66 18 95/48 94 L Intake and Output 01/25/18 01/25/18 01/25/18 06:59 14:59 22:59 Intake Total 150 Balance 150 Intake: Intake, IV Titration 150 Amount Levofloxacin 750Mg-D5w 150 Pmx 750 mg In Dextrose/ Water 1 150ml.bag @ 100 mls/hr IVPB ONCE STA Rx#: [id number] Other: # Voids 0 # Bowel Movements 0 Weight 106.594 kg 82-year-old male who seems modestly comfortable has a slow but understandable speech pattern HEENT: Anicteric conjunctiva are pink and moist nasal mucosa grossly intact without significant lesions, there is no thrush. Denture Neck: The neck is supple without significant lymphadenopathy or thyromegaly. Lungs: Symmetrical air entry with few expiratory wheezes no bronchial sounds Heart: Regular with an audible S1 and S2 no S3 soft S4 2/6 systolic murmur left sternal border that radiates to the axilla PMI was nondisplaced Abdomen: Obese, Positive bowel sounds soft and nontender without palpable masses or organomegaly. There was no guarding or rebound. Extremities: The upper extremities have excellent pulses they are symmetric, no significant petechiae or telangiectasia. No splinter hemorrhages were noted. Lower extremities have evidence of some chronic edema, there is ulceration to the right heel measuring approximately 3 x 1 cm it has eschar and constantly is unstageable is present on admission, there is no noted drainage, is not extremely tender and there is only minimal surrounding erythema Neuro: Awake alert oriented to person place and time. He has a very slow speech pattern easily understood and he is not confused Results CBC & Chem 7: 01/25/18 07:37 01/25/18 07:37 Labs: Abnormal Lab Results - Last 24 Hours (Table) 01/25/18 01/25/18 01/25/18 Range/Units 07:37 07:37 07:37 RBC 3.04 L (4.30-5.90) m/uL Hgb 8.4 L (13.0-17.5) gm/dL Hct 26.2 L (39.0-53.0) % RDW 16.3 H (11.5-15.5) % Lymphocytes # 0.7 L (1.0-4.8) k/uL Chloride 97 L (98-107) mmol/L BUN 39 H (9-20) mg/dL Creatinine 6.81 H (0.66-1.25) mg/dL Glucose 149 H (74-99) mg/dL POC Glucose (mg/dL) (75-99) mg/dL Hemoglobin A1c (4.0-6.0) % Calcium 7.9 L (8.4-10.2) mg/dL AST 15 L (17-59) U/L ALT 19 L (21-72) U/L Total Creatine Kinase 35 L (55-170) U/L Troponin I 0.037 H* (0.000-0.034) ng/mL Total Protein 5.4 L (6.3-8.2) g/dL Albumin 3.1 L (3.5-5.0) g/dL Urine Protein (Negative) Urine Blood (Negative) Urine RBC (0-5) /hpf Urine WBC (0-5) /hpf Urine Mucus (None) /hpf 01/25/18 01/25/18 01/25/18 Range/Units 07:37 11:19 12:45 RBC (4.30-5.90) m/uL Hgb (13.0-17.5) gm/dL Hct (39.0-53.0) % RDW (11.5-15.5) % Lymphocytes # (1.0-4.8) k/uL Chloride (98-107) mmol/L BUN (9-20) mg/dL Creatinine (0.66-1.25) mg/dL Glucose (74-99) mg/dL POC Glucose (mg/dL) 183 H (75-99) mg/dL Hemoglobin A1c 6.7 H (4.0-6.0) % Calcium (8.4-10.2) mg/dL AST (17-59) U/L ALT (21-72) U/L Total Creatine Kinase 34 L (55-170) U/L Troponin I (0.000-0.034) ng/mL Total Protein (6.3-8.2) g/dL Albumin (3.5-5.0) g/dL Urine Protein (Negative) Urine Blood (Negative) Urine RBC (0-5) /hpf Urine WBC (0-5) /hpf Urine Mucus (None) /hpf 01/25/18 01/25/18 01/25/18 Range/Units 17:35 19:50 20:18 RBC (4.30-5.90) m/uL Hgb (13.0-17.5) gm/dL Hct (39.0-53.0) % RDW (11.5-15.5) % Lymphocytes # (1.0-4.8) k/uL Chloride (98-107) mmol/L BUN (9-20) mg/dL Creatinine (0.66-1.25) mg/dL Glucose (74-99) mg/dL POC Glucose (mg/dL) 147 H (75-99) mg/dL Hemoglobin A1c (4.0-6.0) % Calcium (8.4-10.2) mg/dL AST (17-59) U/L ALT (21-72) U/L Total Creatine Kinase 38 L (55-170) U/L Troponin I (0.000-0.034) ng/mL Total Protein (6.3-8.2) g/dL Albumin (3.5-5.0) g/dL Urine Protein 3+ H (Negative) Urine Blood Moderate H (Negative) Urine RBC 67 H (0-5) /hpf Urine WBC 6 H (0-5) /hpf Urine Mucus Rare H (None) /hpf 01/25/18 Range/Units 20:34 RBC (4.30-5.90) m/uL Hgb (13.0-17.5) gm/dL Hct (39.0-53.0) % RDW (11.5-15.5) % Lymphocytes # (1.0-4.8) k/uL Chloride (98-107) mmol/L BUN (9-20) mg/dL Creatinine (0.66-1.25) mg/dL Glucose (74-99) mg/dL POC Glucose (mg/dL) 211 H (75-99) mg/dL Hemoglobin A1c (4.0-6.0) % Calcium (8.4-10.2) mg/dL AST (17-59) U/L ALT (21-72) U/L Total Creatine Kinase (55-170) U/L Troponin I (0.000-0.034) ng/mL Total Protein (6.3-8.2) g/dL Albumin (3.5-5.0) g/dL Urine Protein (Negative) Urine Blood (Negative) Urine RBC (0-5) /hpf Urine WBC (0-5) /hpf Urine Mucus (None) /hpf Laboratory Results WBC 9.5 k/uL (3.8-10.6) 01/25/18 07:37 RBC 3.04 m/uL (4.30-5.90) L 01/25/18 07:37 Hgb 8.4 gm/dL (13.0-17.5) L 01/25/18 07:37 Hct 26.2 % (39.0-53.0) L 01/25/18 07:37 MCV 86.1 fL (80.0-100.0) 01/25/18 07:37 MCH 27.6 pg (25.0-35.0) 01/25/18 07:37 MCHC 32.1 g/dL (31.0-37.0) 01/25/18 07:37 RDW 16.3 % (11.5-15.5) H 01/25/18 07:37 Plt Count 345 k/uL (150-450) 01/25/18 07:37 Neutrophils % 79 % 01/25/18 07:37 Lymphocytes % 8 % 01/25/18 07:37 Monocytes % 9 % 01/25/18 07:37 Eosinophils % 2 % 01/25/18 07:37 Basophils % 0 % 01/25/18 07:37 Neutrophils # 7.6 k/uL (1.3-7.7) 01/25/18 07:37 Lymphocytes # 0.7 k/uL (1.0-4.8) L 01/25/18 07:37 Monocytes # 0.8 k/uL (0-1.0) 01/25/18 07:37 Eosinophils # 0.2 k/uL (0-0.7) 01/25/18 07:37 Basophils # 0.0 k/uL (0-0.2) 01/25/18 07:37 Anisocytosis Slight 01/25/18 07:37 PT 10.8 sec (9.0-12.0) 01/25/18 07:37 INR 1.0 (<1.2) 01/25/18 07:37 APTT 24.3 sec (22.0-30.0) 01/25/18 07:37 Sodium 137 mmol/L (137-145) 01/25/18 07:37 Potassium 4.6 mmol/L (3.5-5.1) 01/25/18 07:37 Chloride 97 mmol/L (98-107) L 01/25/18 07:37 Carbon Dioxide 29 mmol/L (22-30) 01/25/18 07:37 Anion Gap 11 mmol/L 01/25/18 07:37 BUN 39 mg/dL (9-20) H 01/25/18 07:37 Creatinine 6.81 mg/dL (0.66-1.25) H 01/25/18 07:37 Est GFR (CKD-EPI)AfAm 8 (>60 ml/min/1.73 sqM) 01/25/18 07:37 Est GFR (CKD-EPI)NonAf 7 (>60 ml/min/1.73 sqM) 01/25/18 07:37 Glucose 149 mg/dL (74-99) H 01/25/18 07:37 POC Glucose (mg/dL) 211 mg/dL (75-99) H 01/25/18 20:34 POC Glu [employer] ID Ciara Armstrong 01/25/18 20:[address] Glu mg/dL 146 01/25/18 07:37 Hemoglobin A1c 6.7 % (4.0-6.0) H 01/25/18 07:37 Calcium 7.9 mg/dL (8.4-10.2) L 01/25/18 07:37 Magnesium 1.8 mg/dL (1.6-2.3) 01/25/18 07:37 Total Bilirubin 0.4 mg/dL (0.2-1.3) 01/25/18 07:37 AST 15 U/L (17-59) L 01/25/18 07:37 ALT 19 U/L (21-72) L 01/25/18 07:37 Alkaline Phosphatase 50 U/L (38-126) 01/25/18 07:37 Total Creatine Kinase 38 U/L (55-170) L 01/25/18 20:18 CK-MB (CK-2) 0.4 ng/mL (0.0-2.4) 01/25/18 20:18 CK-MB (CK-2) Rel Index 1.1 01/25/18 20:18 Troponin I 0.037 ng/mL (0.000-0.034) H* 01/25/18 07:37 NT-Pro-B Natriuret Pep 63114 pg/mL 01/25/18 12:45 Total Protein 5.4 g/dL (6.3-8.2) L 01/25/18 07:37 Albumin 3.1 g/dL (3.5-5.0) L 01/25/18 07:37 Urine Color Yellow 01/25/18 19:50 Urine Appearance Clear (Clear) 01/25/18 19:50 Urine pH 6.0 (5.0-8.0) 01/25/18 19:50 Ur Specific [place] 1.015 (1.001-1.035) 01/25/18 19:50 Urine Protein 3+ (Negative) H 01/25/18 19:50 Urine Glucose (UA) Negative (Negative) 01/25/18 19:50 Urine Ketones Negative (Negative) 01/25/18 19:50 Urine Blood Moderate (Negative) H 01/25/18 19:50 Urine Nitrite Negative (Negative) 01/25/18 19:50 Urine Bilirubin Negative (Negative) 01/25/18 19:50 Urine Urobilinogen <2.0 mg/dL (<2.0) 01/25/18 19:50 Ur Leukocyte Esterase Negative (Negative) 01/25/18 19:50 Urine RBC 67 /hpf (0-5) H 01/25/18 19:50 Urine WBC 6 /hpf (0-5) H 01/25/18 19:50 Urine Mucus Rare /hpf (None) H 01/25/18 19:50 Assessment and Plan (1) Chronic renal failure Current Visit: Yes Status: Acute Code(s): N18.9 - CHRONIC KIDNEY DISEASE, UNSPECIFIED SNOMED Code(s): 30068073 (2) Near syncope Current Visit: Yes Status: Acute Code(s): R55 - SYNCOPE AND COLLAPSE SNOMED Code(s): 501051701 (3) Unstageable pressure ulcer of right heel Narrative/Plan: 82-year-old male presents to hospital with a near syncopal event was found to have evidence of some shortness of breath since admission, his been seen by pulmonary critical care it was thought to be due to some volume overload for which dialysis should correct. As noted he does have end-stage renal disease from glomerulonephritis and ATN that failed to respond the plasmapheresis in November. The patient does not continue to feel dizzy upon sitting up, so been able to eat his meals without difficulty and is denying severe shortness of breath and is laying supine this point in time without evidence of shortness of breath. There is evidence of the unstageable pressure ulceration to the right heel. We' ll obtain an x-ray to further evaluate the possibility of underlying injury. The patient does deny trauma but was having presyncopal event. Local wound care with steve has been requested Have asked for a boot to offload her off of the bed to help with healing. He is receiving protein supplement. Current Visit: Yes Status: Acute Code(s): L89.610 - PRESSURE ULCER OF RIGHT HEEL, UNSTAGEABLE SNOMED Code(s): 445850524
--- NOTE | 2018-01-26 00:31 | XR ---
EXAMINATION TYPE: XR foot complete RT DATE OF EXAM: 01/25/2018 COMPARISON: NONE HISTORY: Right foot pain TECHNIQUE: 3 views FINDINGS: There is vascular calcification. I see no fracture nor dislocation. Metatarsals are intact. There are plantar and Achilles calcaneal spurs. There are no erosions. IMPRESSION: No acute abnormality of the right foot.
[2018-01-26] MEDS: LEVOTHYROXINE 25 MCG TAB PO SCH (05:43)
[2018-01-26 07:25] LABS: Glucose,Whole Blood 116 mg/dL (75-99)
[2018-01-26 07:55] LABS: Anisocytosis Slight; Basophils % (A) 0 %; Eosinophils # (A) 0.2 k/uL (0-0.7); Eosinophils % (A) 2 %; HCT 23.7 % (39.0-53.0); HGB 7.5 gm/dL (13.0-17.5); Lymphocytes # (A) 0.9 k/uL (1.0-4.8); Lymphocytes % (A) 11 %; MCH 27.4 pg (25.0-35.0); MCHC 31.7 g/dL (31.0-37.0); MCV 86.5 fL (80.0-100.0); Mean Platelet Volume 6.2; Monocytes # (A) 0.7 k/uL (0-1.0); Monocytes % (A) 9 %; Neutrophils # (A) 6.4 k/uL (1.3-7.7); Neutrophils % (A) 77 %; Platelet Count 328 k/uL (150-450); RBC 2.74 m/uL (4.30-5.90); RDW 16.7 % (11.5-15.5); WBC 8.3 k/uL (3.8-10.6)
[2018-01-26 08:10] LABS: Albumin 2.8 g/dL (3.5-5.0); Calcium 7.7 mg/dL (8.4-10.2); Potassium 3.8 mmol/L (3.5-5.1); Total Bilirubin 0.5 mg/dL (0.2-1.3); Total Protein 5.1 g/dL (6.3-8.2)
[2018-01-26] MEDS: CARVEDILOL 12.5 MG TAB PO SCH ×2 (09:21→17:25)
[2018-01-26] MEDS: INSULN ASP PRT/INSULIN ASPART 100 UNIT/ML 10 ML VIAL SQ SCH ×2 (09:21→20:47)
[2018-01-26] MEDS: PANTOPRAZOLE 40 MG TABLET PO SCH (09:21)
[2018-01-26] MEDS: NIFEdipine XL 90 MG TAB.ER.24 PO SCH (09:21)
[2018-01-26] MEDS: HEPARIN SODIUM,PORCINE 5,000 UNIT/ML 1 ML VIAL SQ SCH ×2 (09:21→20:44)
--- NOTE | 2018-01-26 09:23 | XR ---
EXAMINATION TYPE: XR chest 2V DATE OF EXAM: 01/26/2018 COMPARISON: 01/25/2018 HISTORY: Pneumonia. Follow up exam. TECHNIQUE: Frontal and lateral views of the chest are obtained. FINDINGS: There are diffuse interstitial opacities and a patchy consolidation in the right infrahila r. Dual lumen right sided hemodialysis catheter terminates in the right atrium. Median sternotomy wir es are noted with stable with dehiscence of the third most superior sternotomy wire. Cardiac silhouet te is upper limits of normal. Old left-sided rib fractures are noted. IMPRESSION: Similar-appearing diffuse interstitial edema and patchy right basilar opacity that may r epresent confluent edema or pneumonia.
[2018-01-26] MEDS: PIPERACILLIN-TAZOBACTAM 3.375 GM in SODIUM CHLORIDE 0.9% 100 ML IVPB SCH ×2 (09:26→23:28)
[2018-01-26 11:43] LABS: Glucose,Whole Blood 91 mg/dL (75-99)
--- NOTE | 2018-01-26 11:48 | P.PN ---
Subjective Progress Note Date: 01/26/18 This is an 82-year-old male patient presented to the emergency room wit complaints of increased weakness and near syncope episode. Patient has a known past medical history of exercising and concentric, nephritis causing end-stage renal disease. Patient does require dialysis Monday. Additional medical history includes insulin-dependent diabetes mellitus, coronary artery disease, hypertension, and anemia. Chest x-ray completed showing scattered patchy infiltrates noted the greatest throughout the right lung. Correlate for underlying pneumonia. Dr. Do has been consulted for pulmonary services. Patient planning to receive dialysis today on his normal schedule. Dr. Hicks has been consulted for nephrology services. Troponin was slightly elevated at your 0.037. Will order repeat cardiac enzymes at this time. EKG completed showing sinus rhythm with first-degree AV block. Minimal voltage criteria for LVH, may be normal variant. Patient also noted to have right foot ulcer. Dr. Saenz will be consulted. At this time patient denies chest pain or shortness breath. Patient denies nausea vomiting or diarrhea. Patient denies any urinary burning or frequency On 01/26/2018 patient is currently resting in bed. Patient does appear alert and oriented. Patient to receive dialysis yesterday and planning for dialysis tomorrow. Patient at this time does state he feels weak. Patient denies chest pain or shortness of breath. Patient denies nausea vomiting or diarrhea. Patient denies any urinary burning or frequency Objective - Vital Signs Vital signs: Vital Signs Temp 98.8 F 01/26/18 05:00 Pulse 69 01/26/18 05:00 Resp 16 01/26/18 05:00 BP 143/62 01/26/18 05:00 Pulse Ox 91 L 01/26/18 09:29 Intake & Output 01/25/18 01/26/18 01/26/18 18:59 06:59 18:59 Intake Total 150 740 Balance 150 740 Intake: Intake, IV Titration 150 Amount Levofloxacin 750Mg-D5w 150 Pmx 750 mg In Dextrose/ Water 1 150ml.bag @ 100 mls/hr IVPB ONCE STA Rx#: [id number] Oral 740 Other: # Voids 0 2 # Bowel Movements 0 1 1 - Exam Head normocephalic Neck supple Lungs clear to auscultation bilaterally no wheezing or crackles Heart regular rate and rhythm S1-S2, no rub or gallop Abdomen is soft nontender nondistended positive bowel sounds no hepatosplenomegaly Extremities no edema Neuro alert and orientated to 3 - Labs CBC & Chem 7: 01/26/18 07:25 01/26/18 07:25 Labs: Abnormal Lab Results - Last 24 Hours (Table) 01/25/18 01/25/18 01/25/18 Range/Units 07:37 12:45 17:35 RBC (4.30-5.90) m/uL Hgb (13.0-17.5) gm/dL Hct (39.0-53.0) % RDW (11.5-15.5) % Lymphocytes # (1.0-4.8) k/uL Carbon Dioxide (22-30) mmol/L Creatinine (0.66-1.25) mg/dL Glucose (74-99) mg/dL POC Glucose (mg/dL) 147 H (75-99) mg/dL Hemoglobin A1c 6.7 H (4.0-6.0) % Calcium (8.4-10.2) mg/dL AST (17-59) U/L Total Creatine Kinase 34 L (55-170) U/L Total Protein (6.3-8.2) g/dL Albumin (3.5-5.0) g/dL Urine Protein (Negative) Urine Blood (Negative) Urine RBC (0-5) /hpf Urine WBC (0-5) /hpf Urine Mucus (None) /hpf 01/25/18 01/25/18 01/25/18 Range/Units 19:50 20:18 20:34 RBC (4.30-5.90) m/uL Hgb (13.0-17.5) gm/dL Hct (39.0-53.0) % RDW (11.5-15.5) % Lymphocytes # (1.0-4.8) k/uL Carbon Dioxide (22-30) mmol/L Creatinine (0.66-1.25) mg/dL Glucose (74-99) mg/dL POC Glucose (mg/dL) 211 H (75-99) mg/dL Hemoglobin A1c (4.0-6.0) % Calcium (8.4-10.2) mg/dL AST (17-59) U/L Total Creatine Kinase 38 L (55-170) U/L Total Protein (6.3-8.2) g/dL Albumin (3.5-5.0) g/dL Urine Protein 3+ H (Negative) Urine Blood Moderate H (Negative) Urine RBC 67 H (0-5) /hpf Urine WBC 6 H (0-5) /hpf Urine Mucus Rare H (None) /hpf 01/26/18 01/26/18 01/26/18 Range/Units 07:23 07:25 07:25 RBC 2.74 L (4.30-5.90) m/uL Hgb 7.5 L (13.0-17.5) gm/dL Hct 23.7 L (39.0-53.0) % RDW 16.7 H (11.5-15.5) % Lymphocytes # 0.9 L (1.0-4.8) k/uL Carbon Dioxide 31 H (22-30) mmol/L Creatinine 5.19 H (0.66-1.25) mg/dL Glucose 105 H (74-99) mg/dL POC Glucose (mg/dL) 116 H (75-99) mg/dL Hemoglobin A1c (4.0-6.0) % Calcium 7.7 L (8.4-10.2) mg/dL AST 13 L (17-59) U/L Total Creatine Kinase (55-170) U/L Total Protein 5.1 L (6.3-8.2) g/dL Albumin 2.8 L (3.5-5.0) g/dL Urine Protein (Negative) Urine Blood (Negative) Urine RBC (0-5) /hpf Urine WBC (0-5) /hpf Urine Mucus (None) /hpf Assessment and Plan Assessment: 1. Increased possibly due to pneumonia. Chest x-ray completed showing scattered patchy infiltrates notes the greatest throughout the right lung correlate for underlying pneumonia. Patient started on Zosyn and Levaquin. Dr. Ernestina mercer for pulmonary services. View chest x-ray completed showing similar appearing diffuse interstitial edema and patchy right basilar pacer that may represent completed edema or pneumonia 2. Right foot ulcer. Right foot x-ray completed showing no acute abnormality of the right foot. Per Dr. Saenz local wound care with Lilli Torres. Patient to have boot to offload heel pressure. 3. 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 Dr. Hicks has been consulted. Patient currently on Monday hemodialysis schedule 4. mildly Elevated cardiac enzymes. Troponin slightly elevated 0.037. EKG completed showing sinus rhythm with first-degree AV block. Minimal voltage criteria for LVH, maybe normal variant. Non-specific ST and T-wave abnormality 5. Insulin-dependent diabetes mellitus type 2. Home meds resumed 6. History of coronary artery disease 7. History of essential hypertension 8. Anemia chronic disease. Hemoglobin 8.4. Hemoglobin 7.5 DVT prophylaxis heparin. GI prophylaxis Protonix. Per case aide note. DPOA has been contacted. Patient is becoming weaker and does not have 24/7 hour care. Patient carries becoming overwhelming for DPOA. Requesting patient to go to rehab at this time first choice [facility] second choice [place]. I performed an examination of the patient and discussed their management with the Nurse Practitioner. I have reviewed the Nurse Practitioner's notes and agree with the documented findings and plan of care
[2018-01-26 13:46] VITALS: BMI 31.8
--- NOTE | 2018-01-26 15:02 | P.PN ---
Subjective Progress Note Date: 01/26/18 Principal diagnosis: Fluid overload secondary to chronic renal disease This is a very pleasant 82-year-old gentleman with a known history of end-stage renal disease on hemodialysis Monday. He was recently discharged from [facility] [place]. At home he had fallen with his walker while heading to hemodialysis. He was on the ground approximate 15 minutes EMS was called and he was brought in for the same. He was seen and evaluated yesterday in consultation by Dr. Do. There was some concerns regarding possible pneumonia based on the chest x-ray. He did feel he has fluid volume overload related to the end-stage renal disease no other symptoms of pneumonia. No fever, chills or night sweats. No cough or congestion. No leukocytosis. He is seen again today in follow-up on the regular medical floor. He is currently sitting up in bed. He is awake and alert in no acute distress. Maintaining O2 saturations in the 90s on room air. He is afebrile. Hemodynamically stable. The culture reveals no growth to date. White count 8.3. Hemoglobin 7.5. Creatinine 5.19. He is due for hemodialysis tomorrow. Objective - Vital Signs Vital signs: Vital Signs Temp 97.4 F L 01/26/18 12:49 Pulse 67 01/26/18 12:49 Resp 20 01/26/18 12:49 BP 154/76 01/26/18 12:49 Pulse Ox 91 L 01/26/18 12:49 Intake & Output 01/25/18 01/26/18 01/26/18 18:59 06:59 18:59 Intake Total 150 740 Balance 150 740 Weight 106.594 kg Intake: Intake, IV Titration 150 Amount Levofloxacin 750Mg-D5w 150 Pmx 750 mg In Dextrose/ Water 1 150ml.bag @ 100 mls/hr IVPB ONCE STA Rx#: [id number] Oral 740 Other: # Voids 0 2 # Bowel Movements 0 1 1 - Constitutional General appearance: Present: morbidly obese, no acute distress - EENT Eyes: Present: EOMI, PERRLA ENT: Present: hearing grossly normal Ears: bilateral: normal - Neck Neck: Present: normal ROM Carotids: bilateral: upstroke normal Thyroid: bilateral: normal size - Respiratory Respiratory: bilateral: CTA - Cardiovascular Rhythm: regular Heart sounds: normal: S1, S2 - Gastrointestinal General gastrointestinal: Present: normal bowel sounds - Integumentary Integumentary: Present: normal turgor - Neurologic Neurologic: Present: CNII-XII intact - Musculoskeletal Musculoskeletal: Present: generalized weakness - Psychiatric Psychiatric: Present: A&O x's 3, appropriate affect, intact judgment & insight - Labs CBC & Chem 7: 01/26/18 07:25 01/26/18 07:25 Labs: Abnormal Lab Results - Last 24 Hours (Table) 01/25/18 01/25/18 01/25/18 Range/Units 07:37 17:35 19:50 RBC (4.30-5.90) m/uL Hgb (13.0-17.5) gm/dL Hct (39.0-53.0) % RDW (11.5-15.5) % Lymphocytes # (1.0-4.8) k/uL Carbon Dioxide (22-30) mmol/L Creatinine (0.66-1.25) mg/dL Glucose (74-99) mg/dL POC Glucose (mg/dL) 147 H (75-99) mg/dL Hemoglobin A1c 6.7 H (4.0-6.0) % Calcium (8.4-10.2) mg/dL AST (17-59) U/L Total Creatine Kinase (55-170) U/L Total Protein (6.3-8.2) g/dL Albumin (3.5-5.0) g/dL Urine Protein 3+ H (Negative) Urine Blood Moderate H (Negative) Urine RBC 67 H (0-5) /hpf Urine WBC 6 H (0-5) /hpf Urine Mucus Rare H (None) /hpf 01/25/18 01/25/18 01/26/18 Range/Units 20:18 20:34 07:23 RBC (4.30-5.90) m/uL Hgb (13.0-17.5) gm/dL Hct (39.0-53.0) % RDW (11.5-15.5) % Lymphocytes # (1.0-4.8) k/uL Carbon Dioxide (22-30) mmol/L Creatinine (0.66-1.25) mg/dL Glucose (74-99) mg/dL POC Glucose (mg/dL) 211 H 116 H (75-99) mg/dL Hemoglobin A1c (4.0-6.0) % Calcium (8.4-10.2) mg/dL AST (17-59) U/L Total Creatine Kinase 38 L (55-170) U/L Total Protein (6.3-8.2) g/dL Albumin (3.5-5.0) g/dL Urine Protein (Negative) Urine Blood (Negative) Urine RBC (0-5) /hpf Urine WBC (0-5) /hpf Urine Mucus (None) /hpf 01/26/18 01/26/18 Range/Units 07:25 07:25 RBC 2.74 L (4.30-5.90) m/uL Hgb 7.5 L (13.0-17.5) gm/dL Hct 23.7 L (39.0-53.0) % RDW 16.7 H (11.5-15.5) % Lymphocytes # 0.9 L (1.0-4.8) k/uL Carbon Dioxide 31 H (22-30) mmol/L Creatinine 5.19 H (0.66-1.25) mg/dL Glucose 105 H (74-99) mg/dL POC Glucose (mg/dL) (75-99) mg/dL Hemoglobin A1c (4.0-6.0) % Calcium 7.7 L (8.4-10.2) mg/dL AST 13 L (17-59) U/L Total Creatine Kinase (55-170) U/L Total Protein 5.1 L (6.3-8.2) g/dL Albumin 2.8 L (3.5-5.0) g/dL Urine Protein (Negative) Urine Blood (Negative) Urine RBC (0-5) /hpf Urine WBC (0-5) /hpf Urine Mucus (None) /hpf Microbiology - Last 24 Hours (Table) 01/25/18 11:03 Blood Culture - Preliminary Blood No Growth after 24 hours Assessment and Plan Assessment: Impression: #1 Generalized weakness secondary to multiple comorbidities including end-stage renal failure. #2 Dyspnea secondary to fluid volume overload secondary to end-stage renal failure #3 Diabetes mellitus. #4 Hyperlipidemia. #5 Hypertension. #6 Hypothyroidism. #7 Aortic stenosis status post aortic valve replacement with a tissue valve. #8 Obesity. #9 History of prostate cancer status post prostatectomy. Plan: The patient was seen and evaluated by Dr. Do. He is stable from the pulmonary standpoint. We will see the patient on as-needed basis. He is due for hemodialysis tomorrow probable discharge following that. I, the cosigning physician, performed a history & physical examination of the patient. Lungs sounds few scattered rhonchi. Maintaining good O2 saturations in the 90s on room air. I discussed the assessment and plan of care with my nurse practitioner, Katie Busby. I attest to the above note as dictated by her.
[2018-01-26 16:13] LABS: Creatine Kinase MB 0.3 ng/mL (0.0-2.4)
[2018-01-26] MEDS: predniSONE 20 MG TAB PO SCH (17:25)
[2018-01-26 17:28] LABS: Glucose,Whole Blood 118 mg/dL (75-99)
--- NOTE | 2018-01-26 19:05 | CONS ---
CONSULTATION REASON FOR CONSULT: Renal failure. 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 The patient has received 2 doses. He still has 2 more doses of Rituxan. He is maintained on dialysis on a Monday, , Monday schedule by THOMAS Gusman. The patient was admitted to the hospital with complaints of not feeling well. He was dizzy and weak and fell while trying to get into the car to come to dialysis. The blood pressure was slightly on the lower side with systolic around 102 when patient initially came in. He was on JEANMARIE inhibitors, which are currently on hold. Chest x-ray showed possibility of pneumonia. It was repeated today and it shows diffuse interstitial infiltrates/opacities. The patient denied any fever or cough. He states he is feeling better. He was dialyzed yesterday. We had only a 500 mL of ultrafiltration yesterday. PAST MEDICAL HISTORY: Also significant for hypertension, previous history of type 2 diabetes, prostatic cancer, diverticular disease, colon polyps, aortic stenosis with aortic valve replacement, hypothyroidism. PAST SURGICAL HISTORY: Aortic valve replacement. Cardiac catheterization, hernia repair, prostatectomy, colonoscopy, polypectomy, cataract surgeries, laser treatment, laser surgery, right knee arthroplasty. SOCIAL HISTORY: Patient is a former smoker. No history of drug abuse or alcohol abuse. HOME MEDICATIONS: Include ramipril, Zocor, Synthroid, Coreg, nifedipine, insulin. ALLERGIES: None. REVIEW OF SYSTEMS: As per HPI. Other systems negative. PHYSICAL EXAMINATION: Patient is comfortable, awake, alert, oriented x3, not in any acute distress. Blood pressure was 154/76, heart rate 67 per minute. He is afebrile. Examination of the heart S1, S2. Examination of the lungs bilateral breath sounds are heard. Abdomen is soft, nontender. Exam of lower extremities shows no evidence of edema. BEE ROBBER exam is grossly intact. LAB: Show sodium 141, potassium 3.8, chloride 102, BUN 20, serum creatinine 5.19, hemoglobin 7.5 g/dL. ASSESSMENT: 1. 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 The patient is also maintained on prednisone as outpatient. He has received 2 doses of Rituxan. He still has 2 more doses scheduled as outpatient. He should be resumed on the prednisone and the Bactrim, which was not present on his current med list. 2. Acute kidney injury, now dialysis dependent. The patient will be dialyzed tomorrow. We will try to remove more fluid based on the chest x-ray findings. 3. Anemia, multifactorial. No evidence of active bleeding noted. We will maintain the patient on Aranesp. He has had iron studies done as outpatient. 4. Hypertension. Blood pressure had been on the lower side on initial admission. Continue to hold off on JEANMARIE inhibitors. PLAN: Resume Bactrim and prednisone. The hemodialysis in a.m. with increase UF as tolerated. May continue with antibiotics. Repeat labs in a.m. Thank you for this consultation. We will continue to follow the patient with you during his hospitalization. MMODL / IJN: [id number] /
[2018-01-26 20:35] LABS: Creatine Kinase MB 0.3 ng/mL (0.0-2.4)
[2018-01-26 20:38] LABS: Glucose,Whole Blood 215 mg/dL (75-99)
[2018-01-26] MEDS: ATORVASTATIN 10 MG TAB PO SCH (20:44)
[2018-01-27] MEDS: LEVOTHYROXINE 25 MCG TAB PO SCH (06:24)
[2018-01-27 07:09] LABS: Glucose,Whole Blood 184 mg/dL (75-99)
[2018-01-27 07:12] LABS: Anisocytosis Slight; Basophils % (A) 0 %; Eosinophils # (A) 0.1 k/uL (0-0.7); Eosinophils % (A) 1 %; HCT 24.7 % (39.0-53.0); Lymphocytes # (A) 0.4 k/uL (1.0-4.8); Lymphocytes % (A) 5 %; MCH 28.2 pg (25.0-35.0); MCHC 32.3 g/dL (31.0-37.0); MCV 87.5 fL (80.0-100.0); Mean Platelet Volume 6.9; Monocytes # (A) 0.5 k/uL (0-1.0); Monocytes % (A) 7 %; Neutrophils # (A) 6.6 k/uL (1.3-7.7); Neutrophils % (A) 86 %; Platelet Count 350 k/uL (150-450); RBC 2.82 m/uL (4.30-5.90); RDW 16.6 % (11.5-15.5); WBC 7.7 k/uL (3.8-10.6)
[2018-01-27 07:20] LABS: Albumin 3.1 g/dL (3.5-5.0); Calcium 7.9 mg/dL (8.4-10.2); Potassium 4.1 mmol/L (3.5-5.1); Total Bilirubin 0.4 mg/dL (0.2-1.3); Total Protein 5.3 g/dL (6.3-8.2)
[2018-01-27 07:27] LABS: Creatine Kinase 21 U/L (55-170)
[2018-01-27 07:36] LABS: Creatine Kinase MB <0.2 ng/mL (0.0-2.4)
[2018-01-27] MEDS: HEPARIN SODIUM,PORCINE 5,000 UNIT/ML 1 ML VIAL SQ SCH ×2 (07:58→20:32)
[2018-01-27] MEDS: CARVEDILOL 12.5 MG TAB PO SCH ×2 (07:59→20:32)
[2018-01-27] MEDS: INSULN ASP PRT/INSULIN ASPART 100 UNIT/ML 10 ML VIAL SQ SCH ×2 (07:59→20:33)
[2018-01-27] MEDS: NIFEdipine XL 90 MG TAB.ER.24 PO SCH (07:59)
[2018-01-27] MEDS: predniSONE 20 MG TAB PO SCH (07:59)
[2018-01-27] MEDS: PANTOPRAZOLE 40 MG TABLET PO SCH (07:59)
[2018-01-27] MEDS: PIPERACILLIN-TAZOBACTAM 3.375 GM in SODIUM CHLORIDE 0.9% 100 ML IVPB SCH ×2 (10:12→22:13)
--- NOTE | 2018-01-27 10:35 | PN ---
PROGRESS NOTE Patient is seen this morning for followup for acute kidney injury which is dialysis dependent. The patient is scheduled for hemodialysis today. He states he feels well. He is maintained on antibiotics for possible pneumonia. PHYSICAL EXAMINATION: On examination today, blood pressure was 166/65, heart rate 80 per minute. Patient is afebrile. Examination of the heart S1, S2. Examination of the lungs bilateral breath sounds are heard. Abdomen is soft, obese, nontender. Examination of lower extremities shows no significant edema. 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 LABS: Sodium 139, potassium 4.1, BUN 26, serum creatinine 7.37, hemoglobin 8.0 g/dL. ASSESSMENT: 1. 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 The patient has 2 more doses scheduled as outpatient. We will continue to maintain him on dialysis as he remains dialysis dependent. The patient is scheduled for hemodialysis today. He should continue with oral Bactrim for prophylaxis. We can use single strength 3 times a week. 2. Possible pneumonia maintained on antibiotics, currently feeling better. 3. Possible fluid overload. We will increase the UF as tolerated with hemodialysis today. PLAN: Hemodialysis today. Increase UF as tolerated. Continue medications as outpatient and continue to hold off on JEANMARIE inhibitors (ramipril the patient was taking at home). MMODL / IJN: [id number] /
[2018-01-27 11:14] LABS: Glucose,Whole Blood 244 mg/dL (75-99)
--- NOTE | 2018-01-27 11:41 | P.PN ---
Subjective Progress Note Date: 01/27/18 This is an 82-year-old male patient presented to the emergency room wit complaints of increased weakness and near syncope episode. Patient has a known past medical history of exercising and concentric, nephritis causing end-stage renal disease. Patient does require dialysis Monday. Additional medical history includes insulin-dependent diabetes mellitus, coronary artery disease, hypertension, and anemia. Chest x-ray completed showing scattered patchy infiltrates noted the greatest throughout the right lung. Correlate for underlying pneumonia. Dr. Do has been consulted for pulmonary services. Patient planning to receive dialysis today on his normal schedule. Dr. Hicks has been consulted for nephrology services. Troponin was slightly elevated at your 0.037. Will order repeat cardiac enzymes at this time. EKG completed showing sinus rhythm with first-degree AV block. Minimal voltage criteria for LVH, may be normal variant. Patient also noted to have right foot ulcer. Dr. Saenz will be consulted. At this time patient denies chest pain or shortness breath. Patient denies nausea vomiting or diarrhea. Patient denies any urinary burning or frequency On 01/26/2018 patient is currently resting in bed. Patient does appear alert and oriented. Patient to receive dialysis yesterday and planning for dialysis tomorrow. Patient at this time does state he feels weak. Patient denies chest pain or shortness of breath. Patient denies nausea vomiting or diarrhea. Patient denies any urinary burning or frequency On 01/27/2018 patient currently resting in bed. Patient to receive dialysis today. She denies chest pain or shortness of breath. Patient denies nausea vomiting or diarrhea. Patient denies any urinary burning or frequency. Awaiting cardiology consult for possible CHF Objective - Vital Signs Vital signs: Vital Signs Temp 98.2 F 01/27/18 05:00 Pulse 80 01/27/18 08:00 Resp 16 01/27/18 08:00 BP 166/65 01/27/18 05:00 Pulse Ox 92 L 01/27/18 08:20 Intake & Output 01/26/18 01/27/18 01/27/18 18:59 06:59 18:59 Intake Total 100 590 Balance 100 590 Weight 106.594 kg 98 kg Intake: Intake, IV Titration 100 Amount Piperacillin-Tazobactam 3 100 .375 gm In Sodium Chloride 0.9% 100 ml @ 25 mls/hr IVPB Q12H KELBY Rx# :[id number] Oral 590 Other: Voiding Method Toilet Toilet # Voids 2 # Bowel Movements 1 - Exam Head normocephalic Neck supple Lungs clear to auscultation bilaterally no wheezing or crackles Heart regular rate and rhythm S1-S2, no rub or gallop Abdomen is soft nontender nondistended positive bowel sounds no hepatosplenomegaly Extremities no edema Neuro alert and orientated to 3 - Labs CBC & Chem 7: 01/27/18 06:43 01/27/18 06:43 Labs: Abnormal Lab Results - Last 24 Hours (Table) 01/26/18 01/26/18 01/26/18 Range/Units 14:44 17:26 19:49 RBC (4.30-5.90) m/uL Hgb (13.0-17.5) gm/dL Hct (39.0-53.0) % RDW (11.5-15.5) % Lymphocytes # (1.0-4.8) k/uL BUN (9-20) mg/dL Creatinine (0.66-1.25) mg/dL Glucose (74-99) mg/dL POC Glucose (mg/dL) 118 H (75-99) mg/dL Calcium (8.4-10.2) mg/dL AST (17-59) U/L Total Creatine Kinase 29 L 28 L (55-170) U/L Total Protein (6.3-8.2) g/dL Albumin (3.5-5.0) g/dL 01/26/18 01/27/18 01/27/18 Range/Units 20:37 06:43 06:43 RBC 2.82 L (4.30-5.90) m/uL Hgb 8.0 L (13.0-17.5) gm/dL Hct 24.7 L (39.0-53.0) % RDW 16.6 H (11.5-15.5) % Lymphocytes # 0.4 L (1.0-4.8) k/uL BUN 26 H (9-20) mg/dL Creatinine 7.37 H* (0.66-1.25) mg/dL Glucose 171 H (74-99) mg/dL POC Glucose (mg/dL) 215 H (75-99) mg/dL Calcium 7.9 L (8.4-10.2) mg/dL AST 10 L (17-59) U/L Total Creatine Kinase (55-170) U/L Total Protein 5.3 L (6.3-8.2) g/dL Albumin 3.1 L (3.5-5.0) g/dL 01/27/18 01/27/18 01/27/18 Range/Units 06:43 07:02 11:12 RBC (4.30-5.90) m/uL Hgb (13.0-17.5) gm/dL Hct (39.0-53.0) % RDW (11.5-15.5) % Lymphocytes # (1.0-4.8) k/uL BUN (9-20) mg/dL Creatinine (0.66-1.25) mg/dL Glucose (74-99) mg/dL POC Glucose (mg/dL) 184 H 244 H (75-99) mg/dL Calcium (8.4-10.2) mg/dL AST (17-59) U/L Total Creatine Kinase 21 L (55-170) U/L Total Protein (6.3-8.2) g/dL Albumin (3.5-5.0) g/dL Microbiology - Last 24 Hours (Table) 01/25/18 11:03 Blood Culture - Preliminary Blood No Growth after 24 hours Assessment and Plan Assessment: 1. Increased possibly due to pneumonia. Chest x-ray completed showing scattered patchy infiltrates notes the greatest throughout the right lung correlate for underlying pneumonia. Patient started on Zosyn and Levaquin. Dr. Do filing for pulmonary services. View chest x-ray completed showing similar appearing diffuse interstitial edema and patchy right basilar pacer that may represent completed edema or pneumonia 2. Right foot ulcer. Right foot x-ray completed showing no acute abnormality of the right foot. Per Dr. Saenz local wound care with Lilli Torres. Patient to have boot to offload heel pressure. 3. 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 Dr. Hicks has been consulted. Patient currently on Monday hemodialysis schedule 4. mildly Elevated cardiac enzymes. Troponin slightly elevated 0.037. EKG completed showing sinus rhythm with first-degree AV block. Minimal voltage criteria for LVH, maybe normal variant. Non-specific ST and T-wave abnormality 5. Insulin-dependent diabetes mellitus type 2. Home meds resumed 6. History of coronary artery disease 7. History of essential hypertension 8. Anemia chronic disease. Hemoglobin 8.4. Hemoglobin 7.5 DVT prophylaxis heparin. GI prophylaxis Protonix. Per employment case manager note. DPOA has been contacted. Patient is becoming weaker and does not have 24/7 hour care. Patient carries becoming overwhelming for DPOA. Requesting patient to go to rehab at this time first [facility] choice [facility]. Awaiting cardiology consult for possible CHF mildly elevated troponins I performed an examination of the patient and discussed their management with the Nurse Practitioner. I have reviewed the Nurse Practitioner's notes and agree with the documented findings and plan of care
[2018-01-27 17:15] LABS: Glucose,Whole Blood 314 mg/dL (75-99)
[2018-01-27] MEDS: INSULIN ASPART 100 UNIT/ML 1 ML 10 ML VIAL SQ SCH ×2 (18:09→20:33)
[2018-01-27 19:58] LABS: Glucose,Whole Blood 190 mg/dL (75-99)
[2018-01-27] MEDS: ATORVASTATIN 10 MG TAB PO SCH (20:32)
[2018-01-28] MEDS: LEVOTHYROXINE 25 MCG TAB PO SCH (06:29)
[2018-01-28 06:46] LABS: Anisocytosis Slight; Basophils % (A) 0 %; Eosinophils # (A) 0.1 k/uL (0-0.7); Eosinophils % (A) 1 %; HCT 24.1 % (39.0-53.0); HGB 7.9 gm/dL (13.0-17.5); Lymphocytes # (A) 1.2 k/uL (1.0-4.8); Lymphocytes % (A) 12 %; MCH 28.5 pg (25.0-35.0); MCHC 32.7 g/dL (31.0-37.0); MCV 87.1 fL (80.0-100.0); Mean Platelet Volume 6.7; Monocytes # (A) 0.8 k/uL (0-1.0); Monocytes % (A) 8 %; Neutrophils # (A) 7.7 k/uL (1.3-7.7); Neutrophils % (A) 78 %; Platelet Count 350 k/uL (150-450); RBC 2.76 m/uL (4.30-5.90); WBC 9.9 k/uL (3.8-10.6)
[2018-01-28 06:49] LABS: Glucose,Whole Blood 157 mg/dL (75-99)
[2018-01-28 06:50] LABS: Calcium 8.1 mg/dL (8.4-10.2); Potassium 3.6 mmol/L (3.5-5.1); Total Bilirubin 0.4 mg/dL (0.2-1.3); Total Protein 5.2 g/dL (6.3-8.2)
[2018-01-28] MEDS: INSULN ASP PRT/INSULIN ASPART 100 UNIT/ML 10 ML VIAL SQ SCH ×2 (08:42→20:24)
[2018-01-28] MEDS: CARVEDILOL 12.5 MG TAB PO SCH ×2 (08:42→17:51)
[2018-01-28] MEDS: predniSONE 20 MG TAB PO SCH (08:42)
[2018-01-28] MEDS: HEPARIN SODIUM,PORCINE 5,000 UNIT/ML 1 ML VIAL SQ SCH ×2 (08:42→20:16)
[2018-01-28] MEDS: PANTOPRAZOLE 40 MG TABLET PO SCH (08:42)
[2018-01-28] MEDS: INSULIN ASPART 100 UNIT/ML 1 ML 10 ML VIAL SQ SCH ×4 (08:43→20:16)
[2018-01-28] MEDS: NIFEdipine XL 90 MG TAB.ER.24 PO SCH (08:48)
[2018-01-28 11:27] LABS: Glucose,Whole Blood 82 mg/dL (75-99)
[2018-01-28] MEDS: PIPERACILLIN-TAZOBACTAM 3.375 GM in SODIUM CHLORIDE 0.9% 100 ML IVPB SCH ×2 (12:01→20:15)
--- NOTE | 2018-01-28 12:34 | P.PN ---
Subjective Progress Note Date: 01/28/18 This is an 82-year-old male patient presented to the emergency room wit complaints of increased weakness and near syncope episode. Patient has a known past medical history of exercising and concentric, nephritis causing end-stage renal disease. Patient does require dialysis Monday. Additional medical history includes insulin-dependent diabetes mellitus, coronary artery disease, hypertension, and anemia. Chest x-ray completed showing scattered patchy infiltrates noted the greatest throughout the right lung. Correlate for underlying pneumonia. Dr. Do has been consulted for pulmonary services. Patient planning to receive dialysis today on his normal schedule. Dr. Hicks has been consulted for nephrology services. Troponin was slightly elevated at your 0.037. Will order repeat cardiac enzymes at this time. EKG completed showing sinus rhythm with first-degree AV block. Minimal voltage criteria for LVH, may be normal variant. Patient also noted to have right foot ulcer. Dr. Saenz will be consulted. At this time patient denies chest pain or shortness breath. Patient denies nausea vomiting or diarrhea. Patient denies any urinary burning or frequency On 01/26/2018 patient is currently resting in bed. Patient does appear alert and oriented. Patient to receive dialysis yesterday and planning for dialysis tomorrow. Patient at this time does state he feels weak. Patient denies chest pain or shortness of breath. Patient denies nausea vomiting or diarrhea. Patient denies any urinary burning or frequency On 01/27/2018 patient currently resting in bed. Patient to receive dialysis today. She denies chest pain or shortness of breath. Patient denies nausea vomiting or diarrhea. Patient denies any urinary burning or frequency. Awaiting cardiology consult for possible CHF 01/28/2018 patient is doing well he is alert and oriented in no apparent distress there is no fever or chills no headache or dizziness no chest pain no shortness of breath no cough no nausea or vomiting no abdominal pain and no urinary symptoms Objective - Vital Signs Vital signs: Vital Signs Temp 98.1 F 01/28/18 05:00 Pulse 76 01/28/18 08:35 Resp 16 01/28/18 08:35 BP 167/78 01/28/18 05:00 Pulse Ox 97 01/28/18 09:00 Intake & Output 01/27/18 01/28/18 01/28/18 18:59 06:59 18:59 Intake Total 1540 Balance 1540 Weight 91.5 kg Intake: Oral 1540 Other: Voiding Method Toilet Toilet Toilet # Voids 1 2 2 # Bowel Movements 1 1 - Exam Head normocephalic and atraumatic Neck supple no JVD Lungs clear to auscultation bilaterally no wheezing or crackles Heart regular rate and rhythm S1-S2, no rub or gallop Abdomen is soft nontender nondistended positive bowel sounds no hepatosplenomegaly Extremities no edema no cyanosis or clubbing Neuro alert and orientated to 3 - Labs CBC & Chem 7: 01/28/18 06:15 01/28/18 06:15 Labs: Abnormal Lab Results - Last 24 Hours (Table) 01/27/18 01/27/18 01/28/18 Range/Units 17:13 19:56 06:15 RBC 2.76 L (4.30-5.90) m/uL Hgb 7.9 L (13.0-17.5) gm/dL Hct 24.1 L (39.0-53.0) % RDW 17.0 H (11.5-15.5) % BUN (9-20) mg/dL Creatinine (0.66-1.25) mg/dL Glucose (74-99) mg/dL POC Glucose (mg/dL) 314 H 190 H (75-99) mg/dL Calcium (8.4-10.2) mg/dL AST (17-59) U/L ALT (21-72) U/L Total Protein (6.3-8.2) g/dL Albumin (3.5-5.0) g/dL 01/28/18 01/28/18 Range/Units 06:15 06:47 RBC (4.30-5.90) m/uL Hgb (13.0-17.5) gm/dL Hct (39.0-53.0) % RDW (11.5-15.5) % BUN 23 H (9-20) mg/dL Creatinine 4.85 H (0.66-1.25) mg/dL Glucose 145 H (74-99) mg/dL POC Glucose (mg/dL) 157 H (75-99) mg/dL Calcium 8.1 L (8.4-10.2) mg/dL AST 9 L (17-59) U/L ALT 18 L (21-72) U/L Total Protein 5.2 L (6.3-8.2) g/dL Albumin 3.0 L (3.5-5.0) g/dL Microbiology - Last 24 Hours (Table) 01/25/18 11:03 Blood Culture - Preliminary Blood No Growth after 48 hours Assessment and Plan Plan: 1. Increased possibly due to pneumonia. Chest x-ray completed showing scattered patchy infiltrates notes the greatest throughout the right lung correlate for underlying pneumonia. Patient started on Zosyn and Levaquin. Dr. Ernestina mercer for pulmonary services. View chest x-ray completed showing similar appearing diffuse interstitial edema and patchy right basilar pacer that may represent completed edema or pneumonia 2. Right foot ulcer. Right foot x-ray completed showing no acute abnormality of the right foot. Per Dr. Saenz local wound care with Lilli Torres. Patient to have boot to offload heel pressure. 3. 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 Dr. Hicks has been consulted. Patient currently on Monday hemodialysis schedule 4. mildly Elevated cardiac enzymes. Troponin slightly elevated 0.037. EKG completed showing sinus rhythm with first-degree AV block. Minimal voltage criteria for LVH, maybe normal variant. Non-specific ST and T-wave abnormality 5. Insulin-dependent diabetes mellitus type 2. Home meds resumed 6. History of coronary artery disease 7. History of essential hypertension 8. Anemia chronic disease. Hemoglobin 8.4. Hemoglobin 7.5 DVT prophylaxis heparin. GI prophylaxis Protonix. Per case monitor note. DPOA has been contacted. Patient is becoming weaker and does not have 24/7 hour care. Patient carries becoming overwhelming for DPOA. Requesting patient to go to rehab at this time first choice [facility] second choice [facility]. However patient is requesting to go home, he will contact his power of tripe washer who is a family friend and discussed discharge destination with her. Awaiting cardiology consult for possible CHF mildly elevated troponins
[2018-01-28 16:54] LABS: Glucose,Whole Blood 195 mg/dL (75-99)
[2018-01-28 19:58] LABS: Glucose,Whole Blood 248 mg/dL (75-99)
[2018-01-28] MEDS: ATORVASTATIN 10 MG TAB PO SCH (20:15)
--- NOTE | 2018-01-28 22:12 | PN ---
PROGRESS NOTE Patient is seen for followup for acute kidney injury, currently hemodialysis dependent. Patient had dialysis yesterday. We had about 2 L of ultrafiltration. He denies any significant complaints. However, it appears that he will be going to rehab unit and therefore patient will be discharged tomorrow. The patient has received 2 doses of Rituxan as outpatient for crescentic necrotizing ANCA vasculitis. He is maintained on prednisone and Bactrim for prophylaxis as well. JEANMARIE inhibitors have been discontinued and patient is normally on a Monday, , Monday schedule for dialysis. According to the holiday schedule, patient's usual treatment days have been changed. He was dialyzed yesterday. We will dialyze him again today and then he will run as outpatient on Monday. Currently, patient is maintained on antibiotics for possible pneumonia. We had about 2 L of ultrafiltration yesterday as there was suggestion of possible volume overload. PHYSICAL EXAMINATION: Blood pressure this morning 159/76, heart rate is 72 per minute patient is afebrile. Examination of the heart: S1, S2. Examination of the lungs: Bilateral breath sounds are heard. Abdomen is soft, nontender. Exam of lower extremities shows no evidence of edema. LABS: Show sodium 140, potassium 3.6, BUN 23, serum creatinine 4.85, hemoglobin 7.9 g/dL. ASSESSMENT: 1. Acute kidney injury, currently hemodialysis dependent, nonoliguric, etiology ANCA associated crescentic GN, status post plasmapheresis, 2 doses of Rituxan, currently maintained on steroids and prophylactic Bactrim. The patient is scheduled for 2 more doses of Rituxan as outpatient. He is currently maintained on a Monday, , Monday schedule. However, according to the holiday schedule, the days have been changed. Patient was dialyzed on Monday. We will dialyze him again tomorrow which is Monday. 2. Possible pneumonia, maintained on antibiotics. 3. Generalized weakness. The patient will be going to the rehab unit. 4. Anemia with no active bleeding noted, maintained on Aranesp, status post iron as outpatient. 5. Gastroesophageal reflux disease, maintained on proton pump inhibitors. 6. Hypertension, currently stable. PLAN: Hemodialysis in a.m. MMODL / IJN: [id number] /
[2018-01-29 00:15] VITALS: RESP 18
[2018-01-29] MEDS: LEVOTHYROXINE 25 MCG TAB PO SCH (05:56)
[2018-01-29 07:33] LABS: Glucose,Whole Blood 157 mg/dL (75-99)
[2018-01-29 07:50] LABS: Anisocytosis Slight; Basophils % (A) 0 %; Eosinophils # (A) 0.1 k/uL (0-0.7); Eosinophils % (A) 1 %; HCT 24.8 % (39.0-53.0); Hypochromasia Slight; Lymphocytes % (A) 11 %; MCH 28.2 pg (25.0-35.0); MCHC 32.2 g/dL (31.0-37.0); MCV 87.6 fL (80.0-100.0); Mean Platelet Volume 6.6; Monocytes # (A) 0.9 k/uL (0-1.0); Monocytes % (A) 9 %; Neutrophils # (A) 7.5 k/uL (1.3-7.7); Neutrophils % (A) 78 %; Platelet Count 360 k/uL (150-450); RBC 2.83 m/uL (4.30-5.90); RDW 16.8 % (11.5-15.5); WBC 9.7 k/uL (3.8-10.6)
[2018-01-29 08:03] LABS: Calcium 8.1 mg/dL (8.4-10.2); Potassium 3.8 mmol/L (3.5-5.1); Total Bilirubin 0.5 mg/dL (0.2-1.3); Total Protein 5.3 g/dL (6.3-8.2)
[2018-01-29] MEDS: INSULIN ASPART 100 UNIT/ML 1 ML 10 ML VIAL SQ SCH ×2 (08:11→12:34)
[2018-01-29] MEDS: INSULN ASP PRT/INSULIN ASPART 100 UNIT/ML 10 ML VIAL SQ SCH (08:12)
[2018-01-29] MEDS: PANTOPRAZOLE 40 MG TABLET PO SCH (08:13)
[2018-01-29] MEDS: CARVEDILOL 12.5 MG TAB PO SCH (08:13)
[2018-01-29] MEDS: HEPARIN SODIUM,PORCINE 5,000 UNIT/ML 1 ML VIAL SQ SCH (08:13)
[2018-01-29] MEDS: predniSONE 20 MG TAB PO SCH (08:13)
[2018-01-29] MEDS: NIFEdipine XL 90 MG TAB.ER.24 PO SCH (08:14)
[2018-01-29] MEDS ORDERED: SULFAMETHOX-TMP 400-80MG 1 EACH TAB PO SCH (09:00)
[2018-01-29] MEDS: PIPERACILLIN-TAZOBACTAM 3.375 GM in SODIUM CHLORIDE 0.9% 100 ML IVPB SCH (09:25)
--- NOTE | 2018-01-29 12:18 | P.DS ---
Providers Date of admission: 01/25/18 09:21 Expected date of discharge: 01/29/18 Attending physician: Jomar Rangel Consults: 01/25/18 09:31 Consult Physician Stat Consulting Provider: Vinicius Hicks Consult Reason/Comments: Dialysis Do you want consulting provider notified?: Yes 01/25/18 10:36 Consult Physician Routine Consulting Provider: Alpesh Do Consult Reason/Comments: pneumonia Do you want consulting provider notified?: Yes 01/25/18 14:04 Consult Physician Routine Consulting Provider: Dung Saenz Consult Reason/Comments: right foot ulcer Do you want consulting provider notified?: Yes 01/26/18 14:22 Consult Physician Routine Consulting Provider: Pepito Meléndez Consult Reason/Comments: CHF, mildly elevated trop Do you want consulting provider notified?: Yes 01/28/18 13:36 Consult Physician Routine Consulting Provider: Aston Emerson Consult Reason/Comments: chf, elevated trops Do you want consulting provider notified?: Yes Primary care physician: Jomar Rangel Hospital Course: Discharge diagnosis 1. Increased possibly due to pneumonia. Chest x-ray completed showing scattered patchy infiltrates notes the greatest throughout the right lung correlate for underlying pneumonia. Patient started on Zosyn and Levaquin. Dr. Do filing for pulmonary services. View chest x-ray completed showing similar appearing diffuse interstitial edema and patchy right basilar pacer that may represent completed edema or pneumonia. Patient will be DC'd on Levaquin for femoral days 2. Right foot ulcer. Right foot x-ray completed showing no acute abnormality of the right foot. Per Dr. Saenz local wound care with Lilli Torres. Patient to have boot to offload heel pressure. 3. 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 Dr. Hicks has been consulted. Patient currently on Monday hemodialysis schedule. She received hemodialysis today 4. mildly Elevated cardiac enzymes. Troponin slightly elevated 0.037. EKG completed showing sinus rhythm with first-degree AV block. Minimal voltage criteria for LVH, maybe normal variant. Non-specific ST and T-wave abnormality 5. Insulin-dependent diabetes mellitus type 2. Home meds resumed 6. History of coronary artery disease 7. History of essential hypertension 8. Anemia chronic disease. Hemoglobin 8.4. Hemoglobin 7.5 Discussed with DPOA Cesar and the patient. At this time patient is in agreement for rehab. Patient will go to [facility] rehab. Patient to be followed by Dr. Dr. Rangel. Hospital course This is an 82-year-old male patient presented to the emergency room wit complaints of increased weakness and near syncope episode. Patient has a known past medical history of exercising and concentric, nephritis causing end-stage renal disease. Patient does require dialysis Monday. Additional medical history includes insulin-dependent diabetes mellitus, coronary artery disease, hypertension, and anemia. Chest x-ray completed showing scattered patchy infiltrates noted the greatest throughout the right lung. Correlate for underlying pneumonia. Dr. Do has been consulted for pulmonary services. Patient planning to receive dialysis today on his normal schedule. Dr. Hicks has been consulted for nephrology services. Troponin was slightly elevated at your 0.037. Will order repeat cardiac enzymes at this time. EKG completed showing sinus rhythm with first-degree AV block. Minimal voltage criteria for LVH, may be normal variant. Patient also noted to have right foot ulcer. Dr. Saenz will be consulted. At this time patient denies chest pain or shortness breath. Patient denies nausea vomiting or diarrhea. Patient denies any urinary burning or frequency On 01/26/2018 patient is currently resting in bed. Patient does appear alert and oriented. Patient to receive dialysis yesterday and planning for dialysis tomorrow. Patient at this time does state he feels weak. Patient denies chest pain or shortness of breath. Patient denies nausea vomiting or diarrhea. Patient denies any urinary burning or frequency On 01/27/2018 patient currently resting in bed. Patient to receive dialysis today. She denies chest pain or shortness of breath. Patient denies nausea vomiting or diarrhea. Patient denies any urinary burning or frequency. Awaiting cardiology consult for possible CHF 01/28/2018 patient is doing well he is alert and oriented in no apparent distress there is no fever or chills no headache or dizziness no chest pain no shortness of breath no cough no nausea or vomiting no abdominal pain and no urinary symptoms On 01/29/2018 had discussion with patient and CARMELLA david. At this time patient is in agreement to go to [facility] rehab. At this time patient denies chest pain or shortness breath. Patient denies nausea vomiting or diarrhea. Patient denies any urinary burning or frequency. Kusum is currently receiving hemodialysis today I performed an examination of the patient and discussed their management with the Nurse Practitioner. I have reviewed the Nurse Practitioner's notes and agree with the documented findings and plan of care Patient Condition at Discharge: Stable Plan - Discharge Summary Discharge Rx Participant: No New Discharge Prescriptions: New predniSONE 40 mg PO DAILY tab Sulfamethox-Tmp 400-80Mg [Bactrim SS 400-80 mg] 1 each PO MoWeFr tab Levofloxacin [Levaquin] 500 mg PO DAILY 3 Days #5 tab Continue Levothyroxine Sodium [Synthroid] 25 mcg PO DAILY Simvastatin [Zocor] 20 mg PO HS Ramipril [Altace] 10 mg PO DAILY NIFEdipine [NIFEdipine ER] 90 mg PO DAILY Carvedilol [Coreg*] 12.5 mg PO BID Insulin NPL/Insulin Lispro [humaLOG MIX 75-25 VIAL] 15 unit SQ BID Insulin Lispro [humaLOG Kwikpen] See Protocol SQ DAILY Discharge Medication List Levothyroxine Sodium [Synthroid] 25 mcg PO DAILY 05/05/14 [History] Simvastatin [Zocor] 20 mg PO HS 05/05/14 [History] Ramipril [Altace] 10 mg PO DAILY 12/22/17 [History] Carvedilol [Coreg*] 12.5 mg PO BID 12/23/17 [History] NIFEdipine [NIFEdipine ER] 90 mg PO DAILY 12/23/17 [History] Insulin Lispro [humaLOG Kwikpen] See Protocol SQ DAILY 01/25/18 [History] Insulin NPL/Insulin Lispro [humaLOG MIX 75-25 VIAL] 15 unit SQ BID 01/25/18 [ History] Levofloxacin [Levaquin] 500 mg PO DAILY 3 Days #5 tab 01/29/18 [Rx] Sulfamethox-Tmp 400-80Mg [Bactrim SS 400-80 mg] 1 each PO MoWeFr tab 01/29/18 [ Rx] predniSONE 40 mg PO DAILY tab 01/29/18 [Rx] Follow up Appointment(s)/Referral(s): Eugenia Berry MD [STAFF PHYSICIAN] - 1 Week Dung Saenz MD [STAFF PHYSICIAN] - 1 Week Jomar Rangel MD [Primary Care Provider] - 1-2 days Patient Instructions/Handouts: Chronic Kidney Disease Diet (DC) Activity/Diet/Wound Care/Special Instructions: Right foot ulcer. Continue local wound care with sterile honey per Dr. Saenz. Continue boot to offload weight on bed to promote healing Diet renal Activity as tolerated Patient to be discharged to [facility] for rehab. Patient to be followed by Dr. Dr. Rangel Discharge Disposition: TRANSFER TO SNF/ECF
[2018-01-29 12:23] LABS: Glucose,Whole Blood 126 mg/dL (75-99)
[2018-01-29 12:49] VITALS: BP 134/69; PULSE 69; TEMP 98
== END 2018-01-29 14:10 | DRG 193 ==
LOC: EC 06:48 → 3NMEDONC 09:21
PROVIDERS: ADMIT Internal Medicine; ATTEND Internal Medicine
PROC: 5A1D70Z Performance of Urinary Filtration, Intermittent, Less than 6 Hours Per Day (ICD-10-PCS; principal; 2018-01-25)
DX: J18.9 Pneumonia, unspecified organism (principal); N17.0 Acute kidney failure with tubular necrosis; N18.6 End stage renal disease; I13.2 Hypertensive heart and chronic kidney disease with heart failure and with stage 5 chronic kidney disease, or end stage renal disease; I95.9 Hypotension, unspecified; E11.22 Type 2 diabetes mellitus with diabetic chronic kidney disease; L89.610 Pressure ulcer of right heel, unstageable; I50.9 Heart failure, unspecified; E66.01 Morbid (severe) obesity due to excess calories; E03.9 Hypothyroidism, unspecified; D63.1 Anemia in chronic kidney disease; E78.5 Hyperlipidemia, unspecified; I25.10 Atherosclerotic heart disease of native coronary artery without angina pectoris; I44.0 Atrioventricular block, first degree; K21.9 Gastro-esophageal reflux disease without esophagitis; K57.90 Diverticulosis of intestine, part unspecified, without perforation or abscess without bleeding; R77.9 Abnormality of plasma protein, unspecified; Z68.27 Body mass index [BMI] 27.0-27.9, adult; Z79.4 Long term (current) use of insulin; Z79.890 Hormone replacement therapy; Z79.899 Other long term (current) drug therapy; Z99.2 Dependence on renal dialysis; Z96.651 Presence of right artificial knee joint; Z95.3 Presence of xenogenic heart valve; Z90.79 Acquired absence of other genital organ(s); Z86.010 Personal history of colon polyps; Z85.46 Personal history of malignant neoplasm of prostate; Z87.891 Personal history of nicotine dependence; Z98.42 Cataract extraction status, left eye; Z98.41 Cataract extraction status, right eye; Z96.1 Presence of intraocular lens; Z82.49 Family history of ischemic heart disease and other diseases of the circulatory system; W19.XXXA Unspecified fall, initial encounter; Y92.009 Unspecified place in unspecified non-institutional (private) residence as the place of occurrence of the external cause
CPT/HCPCS: 36415; 71046; 80053; 81001; 82550; 82553; 83036; 83735; 83880; 84484; 85025; 85610; 85730; 87040; 90935; 93005; 94760; 96360; 99285

== ENCOUNTER 2018-02-11 10:20 | Emergency (ER) | payer MEDICARE ==
[2018-02-11 10:35] VITALS: TEMP 97.8
[2018-02-11] MEDS ORDERED: SODIUM CHLORIDE 0.9% 500 ML 500 ML IV STA (10:57)
--- NOTE | 2018-02-11 11:07 | ED ---
General Adult HPI - General Chief complaint: Weakness Stated complaint: Family request Time Seen by Provider: 02/11/18 10:38 Source: patient, RN notes reviewed Mode of arrival: EMS Limitations: no limitations - History of Present Illness Initial comments: 82 -year-old male presents to the emergency department for a chief complaint of weakness 1 hour. Patient states he was recently discharged home from [facility] where he was receiving dialysis. Patient states this morning he had one episode of diarrhea. He states that he was weak and lightheaded for about one hour after this. Patient states he did call EMS. He denies falling. He denies sensation of room spinning. He denies chest pain or shortness of breath. Patient states his symptoms have resolved at this time and he is feeling back to his normal self. he states this only lasted for one hour and he would like to go home. Patient has no other complaints at this time including shortness of breath, chest pain, abdominal pain, nausea or vomiting, headache, or visual changes. - Related Data Home Medications Medication Instructions Recorded Confirmed Levothyroxine Sodium [Synthroid] 25 mcg PO DAILY 05/05/14 02/11/18 Simvastatin [Zocor] 20 mg PO HS 05/05/14 02/11/18 Ramipril [Altace] 10 mg PO DAILY 12/22/17 02/11/18 Carvedilol [Coreg*] 12.5 mg PO BID 12/23/17 02/11/18 NIFEdipine [NIFEdipine ER] 90 mg PO DAILY 12/23/17 02/11/18 Insulin Lispro [humaLOG Kwikpen] See Protocol SQ DAILY 01/25/18 02/11/18 Insulin NPL/Insulin Lispro 15 unit SQ BID 01/25/18 02/11/18 [humaLOG MIX 75-25 VIAL] Previous Rx's Medication Instructions Recorded Levofloxacin [Levaquin] 500 mg PO DAILY 3 Days #5 tab 01/29/18 Sulfamethox-Tmp 400-80Mg [Bactrim 1 each PO MoWeFr tab 01/29/18 SS 400-80 mg] predniSONE 40 mg PO DAILY tab 01/29/18 Allergies Allergy/AdvReac Type Severity Reaction Status Date / Time No Known Allergies Allergy Verified 02/11/18 13:02 Review of Systems ROS Statement: Those systems with pertinent positive or pertinent negative responses have been documented in the HPI. ROS Other: All systems not noted in ROS Statement are negative. Past Medical History Past Medical History: Cancer, Heart Failure, Diabetes Mellitus, Hyperlipidemia, Hypertension, Pneumonia, Prostate Disorder, Renal Disease, Thyroid Disorder Additional Past Medical History / Comment(s): Pt recently admitted to [facility] on with hypoglycemia, pneumonia, anemia and CHF, he also was admitted to [facility] on 11/22/17 with acute kidney injury 2ndary to ATN 2ndary to necrotizing and crescentic glomerulonephritis per kidney bx-was sent to [facility] in [place] for plasmapheresis with no improvement-now on hemodialysis tues/thur/ sat. Other hx: IDDM type II, ESRD with hemodialysis, current wound on R heel , prostrate cancer with surgery, iron anemia, benign colon polyps, diverticular disease, hypothyroid, aortic stenosis with valve replacement. History of Any Multi-Drug Resistant Organisms: None Reported Past Surgical History: Cardiac Valve Replacement, Heart Catheterization, Hernia Repair, Joint Replacement, Prostate Surgery, Tonsillectomy Additional Past Surgical History / Comment(s): R hemodialysis catheter, 2014 aortic valve replaced, prostatectomy, colonoscopy with benign polypectomy, bilateral cataract removals, L eye retinal surgery, total R knee replacement. Past Anesthesia/Blood Transfusion Reactions: No Reported Reaction Past Psychological History: No Psychological Hx Reported Smoking Status: Former smoker - Past Family History Father Family Medical History: No Reported History Additional Family Medical History / Comment(s): age 92.5 years old- from old age Mother Family Medical History: Myocardial Infarction (NC) General Exam Limitations: no limitations General appearance: alert, in no apparent distress Head exam: Present: atraumatic, normocephalic, normal inspection Eye exam: Present: normal appearance, PERRL, EOMI. Absent: scleral icterus, conjunctival injection, periorbital swelling ENT exam: Present: normal exam, normal oropharynx, mucous membranes moist, TM's normal bilaterally, normal external ear exam Neck exam: Present: normal inspection, full ROM. Absent: tenderness, meningismus, lymphadenopathy Respiratory exam: Present: normal lung sounds bilaterally. Absent: respiratory distress, wheezes, rales, rhonchi, stridor Cardiovascular Exam: Present: regular rate, normal rhythm, normal heart sounds. Absent: systolic murmur, diastolic murmur, rubs, gallop, clicks GI/Abdominal exam: Present: soft, normal bowel sounds. Absent: distended, tenderness, guarding, rebound, rigid Extremities exam: Present: other (Moving all extremities, appears within normal limits) Neurological exam: Present: alert, oriented X3, CN II-XII intact, normal gait ( Ambulatory in emergency department) Expanded Patient oriented to: Present: person, place, time Speech: Present: fluid speech Cranial nerves: EOM's Intact: Normal, Gag Reflex: Normal, Nystagmus: Normal, Facial Sensation: Normal Sensory exam: Upper Extremity Light Touch: Normal, Upper Extremity Pin Prick: Normal, Lower Extremity Light Touch: Normal, Lower Extremity Pin Prick: Normal Motor strength exam: RUE: 5, LUE: 5, RLE: 5, LLE: 5 Eye Response: (4) open spontaneously Motor Response: (6) obeys commands Verbal Response: (5) oriented Elpidio Total: 15 Psychiatric exam: Present: normal affect, normal mood Course Vital Signs 02/11/18 02/11/18 02/11/18 10:28 10:32 11:00 Temperature 97.8 F Pulse Rate 79 75 Respiratory 16 Rate Blood Pressure 141/68 141/68 O2 Sat by Pulse 98 99 Oximetry 02/11/18 02/11/18 02/11/18 12:00 13:00 14:13 Temperature 97.8 F Pulse Rate 76 72 78 Respiratory 15 15 16 Rate Blood Pressure 139/64 174/75 158/79 O2 Sat by Pulse 98 98 Oximetry EKG Findings - EKG Comments: EKG Findings:: Normal sinus rhythm, ventricular rate 75, OH interval 182, QTC 484 Medical Decision Making - Medical Decision Making 82-year-old male presents for weakness 1, symptoms completely resolved at this time on presentation to the emergency department. Neuro exam is unremarkable. Patient has a white count of 12.5, likely reactive. Hemoglobin 11.9 which has improved over patient's baseline. CMP does show a creatinine of 4.65, patient currently on dialysis for end-stage renal disease. He was able to give a urine sample which had that her blood, patient will follow-up with urology or primary for this. No evidence of infection. EKG shows a normal sinus rhythm with a ventricular rate of 75, no significant changes from prior EKG which was reviewed. Chest x-ray shows mild changes of congestive heart failure. Interstitial edema has improved from the previous exam. On January 26. At this time on revocation patient states he isn't much better and is ready to go home. Vitals are within acceptable limits. Patient will follow-up with primary care as well as urology for hematuria. He will return if he has any recurrent episodes or worsening symptoms. - Lab Data Result diagrams: 02/11/18 11:33 02/11/18 11:33 Lab Results 02/11/18 02/11/18 02/11/18 Range/Units 11:33 11:33 11:33 WBC 12.5 H (3.8-10.6) k/uL RBC 4.27 L (4.30-5.90) m/uL Hgb 11.9 L (13.0-17.5) gm/dL Hct 37.4 L (39.0-53.0) % MCV 87.5 (80.0-100.0) fL MCH 27.8 (25.0-35.0) pg MCHC 31.8 (31.0-37.0) g/dL RDW 17.0 H (11.5-15.5) % Plt Count 443 (150-450) k/uL Neutrophils % 85 % Lymphocytes % 6 % Monocytes % 6 % Eosinophils % 2 % Basophils % 1 % Neutrophils # 10.6 H (1.3-7.7) k/uL Lymphocytes # 0.7 L (1.0-4.8) k/uL Monocytes # 0.7 (0-1.0) k/uL Eosinophils # 0.2 (0-0.7) k/uL Basophils # 0.1 (0-0.2) k/uL Hypochromasia Slight Anisocytosis Slight PT (9.0-12.0) sec INR (<1.2) APTT (22.0-30.0) sec Sodium 138 (137-145) mmol/L Potassium 4.0 (3.5-5.1) mmol/L Chloride 98 (98-107) mmol/L Carbon Dioxide 31 H (22-30) mmol/L Anion Gap 9 mmol/L BUN 19 (9-20) mg/dL Creatinine 4.65 H (0.66-1.25) mg/dL Est GFR (CKD-EPI)AfAm 13 (>60 ml/min/1.73 sqM) Est GFR (CKD-EPI)NonAf 11 (>60 ml/min/1.73 sqM) Glucose 103 H (74-99) mg/dL Calcium 8.5 (8.4-10.2) mg/dL Phosphorus 3.6 (2.5-4.5) mg/dL Magnesium 1.9 (1.6-2.3) mg/dL Total Bilirubin 0.7 (0.2-1.3) mg/dL AST 14 L (17-59) U/L ALT 23 (21-72) U/L Alkaline Phosphatase 67 (38-126) U/L Total Creatine Kinase <20 L (55-170) U/L CK-MB (CK-2) 0.6 (0.0-2.4) ng/mL CK-MB (CK-2) Rel Index Troponin I 0.031 (0.000-0.034) ng/mL NT-Pro-B Natriuret Pep pg/mL Total Protein 5.8 L (6.3-8.2) g/dL Albumin 3.4 L (3.5-5.0) g/dL TSH 1.990 (0.465-4.680) mIU/L Urine Color Urine Appearance (Clear) Urine pH (5.0-8.0) Ur Specific Monarch (1.001-1.035) Urine Protein (Negative) Urine Glucose (UA) (Negative) Urine Ketones (Negative) Urine Blood (Negative) Urine Nitrite (Negative) Urine Bilirubin (Negative) Urine Urobilinogen (<2.0) mg/dL Ur Leukocyte Esterase (Negative) Urine RBC (0-5) /hpf Urine WBC (0-5) /hpf 02/11/18 02/11/18 02/11/18 Range/Units 11:33 11:33 12:50 WBC (3.8-10.6) k/uL RBC (4.30-5.90) m/uL Hgb (13.0-17.5) gm/dL Hct (39.0-53.0) % MCV (80.0-100.0) fL MCH (25.0-35.0) pg MCHC (31.0-37.0) g/dL RDW (11.5-15.5) % Plt Count (150-450) k/uL Neutrophils % % Lymphocytes % % Monocytes % % Eosinophils % % Basophils % % Neutrophils # (1.3-7.7) k/uL Lymphocytes # (1.0-4.8) k/uL Monocytes # (0-1.0) k/uL Eosinophils # (0-0.7) k/uL Basophils # (0-0.2) k/uL Hypochromasia Anisocytosis PT 10.2 (9.0-12.0) sec INR 0.9 (<1.2) APTT 23.8 (22.0-30.0) sec Sodium (137-145) mmol/L Potassium (3.5-5.1) mmol/L Chloride (98-107) mmol/L Carbon Dioxide (22-30) mmol/L Anion Gap mmol/L BUN (9-20) mg/dL Creatinine (0.66-1.25) mg/dL Est GFR (CKD-EPI)AfAm (>60 ml/min/1.73 sqM) Est GFR (CKD-EPI)NonAf (>60 ml/min/1.73 sqM) Glucose (74-99) mg/dL Calcium (8.4-10.2) mg/dL Phosphorus (2.5-4.5) mg/dL Magnesium (1.6-2.3) mg/dL Total Bilirubin (0.2-1.3) mg/dL AST (17-59) U/L ALT (21-72) U/L Alkaline Phosphatase (38-126) U/L Total Creatine Kinase (55-170) U/L CK-MB (CK-2) (0.0-2.4) ng/mL CK-MB (CK-2) Rel Index Troponin I (0.000-0.034) ng/mL NT-Pro-B Natriuret Pep 01209 pg/mL Total Protein (6.3-8.2) g/dL Albumin (3.5-5.0) g/dL TSH (0.465-4.680) mIU/L Urine Color Yellow Urine Appearance Clear (Clear) Urine pH 7.5 (5.0-8.0) Ur Specific Monarch 1.009 (1.001-1.035) Urine Protein 3+ H (Negative) Urine Glucose (UA) Negative (Negative) Urine Ketones Negative (Negative) Urine Blood Moderate H (Negative) Urine Nitrite Negative (Negative) Urine Bilirubin Negative (Negative) Urine Urobilinogen <2.0 (<2.0) mg/dL Ur Leukocyte Esterase Negative (Negative) Urine RBC 33 H (0-5) /hpf Urine WBC 3 (0-5) /hpf - EKG Data -: EKG Interpreted by Me (and dr collins) When compared to previous EKG there are: no significant change Disposition Clinical Impression: Hematuria, Weakness Disposition: HOME SELF-CARE Condition: Good Instructions: Hematuria (ED), Weakness (ED) Additional Instructions: Please follow up with urology in 1-2 days. Follow-up with her primary care provider. Return if you have any worsening symptoms. Is patient prescribed a controlled substance at d/c from ED?: No Referrals: Jomar Rangel MD [Primary Care Provider] - 1-2 days Benedict Shaffer MD [STAFF PHYSICIAN] - 1-2 days Time of Disposition: 13:43
[2018-02-11 11:54] LABS: Anisocytosis Slight; Basophils # (A) 0.1 k/uL (0-0.2); Basophils % (A) 1 %; Eosinophils # (A) 0.2 k/uL (0-0.7); Eosinophils % (A) 2 %; HCT 37.4 % (39.0-53.0); HGB 11.9 gm/dL (13.0-17.5); Hypochromasia Slight; Lymphocytes # (A) 0.7 k/uL (1.0-4.8); Lymphocytes % (A) 6 %; MCH 27.8 pg (25.0-35.0); MCHC 31.8 g/dL (31.0-37.0); MCV 87.5 fL (80.0-100.0); Mean Platelet Volume 6.1; Monocytes # (A) 0.7 k/uL (0-1.0); Monocytes % (A) 6 %; Neutrophils # (A) 10.6 k/uL (1.3-7.7); Neutrophils % (A) 85 %; Platelet Count 443 k/uL (150-450); RBC 4.27 m/uL (4.30-5.90); WBC 12.5 k/uL (3.8-10.6)
--- NOTE | 2018-02-11 12:00 | XR ---
EXAMINATION TYPE: XR chest 2V DATE OF EXAM: 02/11/2018 HISTORY: Weakness. REFERENCE: Previous study dated 01/26/2018. FINDINGS: There is a large-bore, double-lumen catheter in place the a right internal jugular approach . Its tip is in the right atrium. There has been a midline sternotomy. Heart size upper limits of normal. There is subtle interstitial edema but this is improved from the p revious exam. Pleural space are clear. IMPRESSION: MILD CHANGES OF CONGESTIVE HEART FAILURE.
[2018-02-11 12:03] LABS: INR 0.9 (<1.2); Prothrombin Time 10.2 sec (9.0-12.0)
[2018-02-11 12:04] LABS: Partial Thromboplastin Time 23.8 sec (22.0-30.0)
[2018-02-11 12:08] LABS: Albumin 3.4 g/dL (3.5-5.0); Calcium 8.5 mg/dL (8.4-10.2); Magnesium 1.9 mg/dL (1.6-2.3); Phosphorus 3.6 mg/dL (2.5-4.5); Total Bilirubin 0.7 mg/dL (0.2-1.3); Total Protein 5.8 g/dL (6.3-8.2)
[2018-02-11 12:17] LABS: Creatine Kinase <20 U/L (55-170)
[2018-02-11 12:29] LABS: Creatine Kinase MB 0.6 ng/mL (0.0-2.4); Troponin I 0.031 ng/mL (0.000-0.034)
[2018-02-11 13:30] LABS: Appearance,Urine Clear (Clear); Bilirubin,Urine Negative (Negative); Blood,Urine Moderate (Negative); Color,Urine Yellow; Glucose,Urine (UA) Negative (Negative); Ketones,Urine Negative (Negative); Leukocyte Esterase,Urine Negative (Negative); Nitrite,Urine Negative (Negative); PH, Urine 7.5 (5.0-8.0); Protein,Urine 3+ (Negative); RBC,Urine 33 /hpf (0-5); Specific Gravity,Urine 1.009 (1.001-1.035); Urobilinogen,Urine <2.0 mg/dL (<2.0); WBC,Urine 3 /hpf (0-5)
[2018-02-11 14:14] VITALS: BP 158/79; PULSE 78; RESP 16
== END 2018-02-11 14:51 | disposition home or self-care (01) ==
LOC: EC 10:20
DX: R53.1 Weakness (principal); R31.9 Hematuria, unspecified; R42 Dizziness and giddiness; I13.2 Hypertensive heart and chronic kidney disease with heart failure and with stage 5 chronic kidney disease, or end stage renal disease; E11.22 Type 2 diabetes mellitus with diabetic chronic kidney disease; N18.6 End stage renal disease; I50.9 Heart failure, unspecified; E03.9 Hypothyroidism, unspecified; E78.5 Hyperlipidemia, unspecified; Z79.02 Long term (current) use of antithrombotics/antiplatelets; Z79.899 Other long term (current) drug therapy; Z79.890 Hormone replacement therapy; Z79.4 Long term (current) use of insulin; Z95.2 Presence of prosthetic heart valve; Z95.5 Presence of coronary angioplasty implant and graft; Z96.653 Presence of artificial knee joint, bilateral; Z99.2 Dependence on renal dialysis; Z85.46 Personal history of malignant neoplasm of prostate; Z87.891 Personal history of nicotine dependence
CPT/HCPCS: 36415; 71046; 80053; 81001; 82550; 82553; 83735; 83880; 84100; 84443; 84484; 85025; 85610; 85730; 87040; 93005; 96360; 96361; 99285

== ENCOUNTER 2018-02-17 12:06 | Observation (INO) | payer MEDICARE ==
[2018-02-17 12:38] LABS: Glucose,Whole Blood 69 mg/dL (75-99)
--- NOTE | 2018-02-17 12:38 | ED ---
General Adult HPI <Alpesh Figueredo - Last Filed: 02/17/18 15:02> - General Source: patient, RN notes reviewed, old records reviewed Mode of arrival: EMS Limitations: altered mental status, physical limitation <Vinod Welch - Last Filed: 02/17/18 15:32> - General Chief complaint: Altered Mental Status Stated complaint: Hypoglycemia - History of Present Illness Initial comments: 82-year-old male patient with past medical history including ESRD on dialysis, type 2 diabetes, CHF, hypertension, aortic valve replacement presents to ED with hypoglycemia. Patient reports that this morning he ate breakfast as usual , took his regular dose of short-acting insulin and was dropped off at dialysis. Reportedly after onto dialysis patient was lethargic, had altered mental status. When his sugar was checked at dialysis center was reportedly 37. EMS was called and patient was transported to [facility]. Per EMS patient was given half an amp of D50 and sugar was 133. Patient is alert and oriented upon presentation to ED. Patient denies chest pain, shortness of breath, abdominal pain, nausea vomiting diarrhea, headache, changes in vision, fever or chills. Patient currently asymptomatic, denies all complaints. Systemic: Pt denies fatigue, myalgia, fever/chills, rash. Pt denies weakness, night sweats, weight loss. Neuro: Pt denies headache, visual disturbances, syncope or pre-syncope. HEENT: Pt denies ocular discharge or irritation, otalgia, rhinorrhea, pharyngitis or notable lymphadenopathy. Cardiopulmonary: Pt denies chest pain, SOB, heart palpitations, dyspnea on exertion. Abdominal/GI: Pt denies abdominal pain, n/v/d. : Pt denies dysuria, burning w/ urination, frequency/urgency. Denies new onset urinary or bowel incontinence. MSK: Pt denies myalgia, loss of strength or function in extremities. Neuro: Pt denies new onset weakness, paresthesias. (Vinod Welch) - Related Data Home Medications Medication Instructions Recorded Confirmed Levothyroxine Sodium [Synthroid] 25 mcg PO DAILY 05/05/14 02/17/18 Simvastatin [Zocor] 20 mg PO HS 05/05/14 02/17/18 Ramipril [Altace] 10 mg PO DAILY 12/22/17 02/17/18 Carvedilol [Coreg*] 12.5 mg PO BID 12/23/17 02/17/18 NIFEdipine [NIFEdipine ER] 90 mg PO DAILY 12/23/17 02/17/18 Insulin Lispro [humaLOG Kwikpen] See Protocol SQ DAILY 01/25/18 02/17/18 Insulin NPL/Insulin Lispro 15 unit SQ BID 01/25/18 02/17/18 [humaLOG MIX 75-25 VIAL] Previous Rx's Medication Instructions Recorded Levofloxacin [Levaquin] 500 mg PO DAILY 3 Days #5 tab 01/29/18 Sulfamethox-Tmp 400-80Mg [Bactrim 1 each PO MoWeFr tab 01/29/18 SS 400-80 mg] predniSONE 40 mg PO DAILY tab 01/29/18 Allergies Allergy/AdvReac Type Severity Reaction Status Date / Time No Known Allergies Allergy Verified 02/17/18 12:12 Review of Systems ROS Other: All systems not noted in ROS Statement are negative. <Alpesh Figueredo - Last Filed: 02/17/18 15:02> ROS Other: All systems not noted in ROS Statement are negative. <Vinod Welch - Last Filed: 02/17/18 15:32> ROS Statement: Those systems with pertinent positive or pertinent negative responses have been documented in the HPI. 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 ESRD with hemodialysis, current wound on R heel, prostrate cancer with surgery, iron anemia, benign colon polyps, diverticular disease, hypothyroid, aortic stenosis with valve replacement. History of Any Multi-Drug Resistant Organisms: None Reported Past Surgical History: Cardiac Valve Replacement, Heart Catheterization, Hernia Repair, Joint Replacement, Prostate Surgery, Tonsillectomy Additional Past Surgical History / Comment(s): R hemodialysis catheter, 2014 aortic valve replaced, prostatectomy, colonoscopy with benign polypectomy, bilateral cataract removals, L eye retinal surgery, total R knee replacement. Past Anesthesia/Blood Transfusion Reactions: No Reported Reaction Past Psychological History: No Psychological Hx Reported Smoking Status: Former smoker Past Alcohol Use History: None Reported Past Drug Use History: None Reported - Past Family History Father Family Medical History: No Reported History Additional Family Medical History / Comment(s): age 92.5 years old- from old age Mother Family Medical History: Myocardial Infarction ([place]) <Vinod Welch - Last Filed: 02/17/18 15:32> General Exam <Alpesh Figueredo - Last Filed: 02/17/18 15:02> Limitations: altered mental status, physical limitation <Vinod Welch Chantelle - Last Filed: 02/17/18 15:32> - General Exam Comments Initial Comments: Constitutional: NAD, AOX3, Pt has pleasant affect. HEENT: NC/AT, trachea midline, neck supple, no lymphadenopathy. Posterior pharynx non erythematous, without exudates. External ears appear normal, without discharge. Mucous membranes moist. Eyes PERRLA, EOM intact. There is no scleral icterus. No pallor noted. Cardiopulmonary: RRR, no murmurs, rubs or gallops, no JVD noted. Lungs CTAB in anterior and posterior parr. No peripheral edema. Abdominal exam: Abdomen soft and non-distended. Abdomen non-tender to palpation in all 4 quadrants. Bowel sounds active in LLQ. No hepatosplenomegaly. No ecchymosis Neuro: CN II-XII intact. No nuchal rigidity. Repeat neuro exam displayed CN II- XII intact, no focal deficit, no nuchal rigidity. Full active ROM of neck. MSK: No posterior calf tenderness bilaterally, homans sign negative bilaterally. Posterior tibialis and radial pulse +2 bilaterally. Sensation intact in upper and lower extremities. Full active ROM in upper and lower extremities, 5/5 strength. (Vinod Welch) Course <Alpesh Figueredo - Last Filed: 02/17/18 15:02> <RebekahVinod Lockhart - Last Filed: 02/17/18 15:32> Vital Signs 02/17/18 02/17/18 02/17/18 12:08 13:10 14:15 Temperature 96.9 F L Pulse Rate 62 64 68 Respiratory 18 20 20 Rate Blood Pressure 119/61 125/73 135/68 O2 Sat by Pulse 97 98 98 Oximetry - Reevaluation(s) Reevaluation #1: 02/17/18 15:03 PA supervision: I proceeded [id number] evaluation patient did present by EMS from a dialysis center for altered mental status. Is found that the patient was hypoglycemic. He did require several doses of glucose to bring his blood glucose level up. He did slowly respond to. Workup was done patient was found be in some mild failure. Did discuss case with Dr. Rangel. The patient will be admitted consultation to nephrology. I do agree with the assessment and plan. (Alpesh Figueredo) Medical Decision Making - Lab Data Result diagrams: 02/17/18 13:10 02/17/18 13:10 <Alpesh Figueredo - Last Filed: 02/17/18 15:02> - Lab Data Result diagrams: 02/17/18 13:10 02/17/18 13:10 - EKG Data -: EKG Interpreted by Me (and dr figueredo ) <Vinod Welch - Last Filed: 02/17/18 15:32> - Medical Decision Making 82-year-old male patient with past medical history including ESRD on dialysis, type 2 diabetes, CHF, hypertension, aortic valve replacement presents to ED with hypoglycemia. Patient reports that this morning he ate breakfast as usual , took his regular dose of short-acting insulin and was dropped off at dialysis. Reportedly after onto dialysis patient was lethargic, had altered mental status. When his sugar was checked at dialysis center was reportedly 37. EMS was called and patient was transported to [facility]. Per EMS patient was given half an amp of D50 and sugar was 133. Patient is alert and oriented upon presentation to ED. Pt currently denies all other complaints. Patient vital signs stable. Physical exam displayed acute pathology, neuro exam was within normal limits, repeat neuro exam was within normal limits. Laboratory investigations revealed cbc with mild leukocytosis of 11.6, hb of 11.8 which is baseline for patient. Coagulation studies were within normal limits. CMP revealed renal failure which was already known. Blood glucose was initially 69, patient was given 1 ampule of D50, blood sugar most recently 185. Troponin was not elevated, CK-MB within normal limits. Cr kinase was not elevated. Magnesium and phosphorus are within normal limits. Chest x-ray revealed findings consistent with mild heart failure. EKG not concerning for acute ischemia. Case was discussed in depth with Dr. Figueredo. Patient to be admitted to hospital with consultation to nephrology. (Vinod Welch) - Lab Data Lab Results 02/17/18 02/17/18 02/17/18 Range/Units 12:18 12:44 13:10 WBC (3.8-10.6) k/uL RBC (4.30-5.90) m/uL Hgb (13.0-17.5) gm/dL Hct (39.0-53.0) % MCV (80.0-100.0) fL MCH (25.0-35.0) pg MCHC (31.0-37.0) g/dL RDW (11.5-15.5) % Plt Count (150-450) k/uL Neutrophils % % Lymphocytes % % Monocytes % % Eosinophils % % Basophils % % Neutrophils # (1.3-7.7) k/uL Lymphocytes # (1.0-4.8) k/uL Monocytes # (0-1.0) k/uL Eosinophils # (0-0.7) k/uL Basophils # (0-0.2) k/uL Hypochromasia Anisocytosis PT (9.0-12.0) sec INR (<1.2) APTT (22.0-30.0) sec Sodium (137-145) mmol/L Potassium (3.5-5.1) mmol/L Chloride (98-107) mmol/L Carbon Dioxide (22-30) mmol/L Anion Gap mmol/L BUN (9-20) mg/dL Creatinine (0.66-1.25) mg/dL Est GFR (CKD-EPI)AfAm (>60 ml/min/1.73 sqM) Est GFR (CKD-EPI)NonAf (>60 ml/min/1.73 sqM) Glucose (74-99) mg/dL POC Glucose (mg/dL) 69 L 69 L 82 (75-99) mg/dL POC Glu Fashion Journalist ID Holli Booth Calcium (8.4-10.2) mg/dL Phosphorus (2.5-4.5) mg/dL Magnesium (1.6-2.3) mg/dL Total Bilirubin (0.2-1.3) mg/dL AST (17-59) U/L ALT (21-72) U/L Alkaline Phosphatase (38-126) U/L Creatine Kinase (55-170) U/L Total Creatine Kinase (55-170) U/L CK-MB (CK-2) (0.0-2.4) ng/mL CK-MB (CK-2) Rel Index Troponin I (0.000-0.034) ng/mL Total Protein (6.3-8.2) g/dL Albumin (3.5-5.0) g/dL 02/17/18 02/17/18 02/17/18 Range/Units 13:10 13:10 13:10 WBC 11.6 H (3.8-10.6) k/uL RBC 4.13 L (4.30-5.90) m/uL Hgb 11.8 L (13.0-17.5) gm/dL Hct 36.7 L (39.0-53.0) % MCV 88.8 (80.0-100.0) fL MCH 28.7 (25.0-35.0) pg MCHC 32.3 (31.0-37.0) g/dL RDW 16.9 H (11.5-15.5) % Plt Count 298 (150-450) k/uL Neutrophils % 89 % Lymphocytes % 3 % Monocytes % 5 % Eosinophils % 1 % Basophils % 0 % Neutrophils # 10.4 H (1.3-7.7) k/uL Lymphocytes # 0.3 L (1.0-4.8) k/uL Monocytes # 0.6 (0-1.0) k/uL Eosinophils # 0.2 (0-0.7) k/uL Basophils # 0.0 (0-0.2) k/uL Hypochromasia Slight Anisocytosis Slight PT (9.0-12.0) sec INR (<1.2) APTT (22.0-30.0) sec Sodium 139 (137-145) mmol/L Potassium 4.7 (3.5-5.1) mmol/L Chloride 102 (98-107) mmol/L Carbon Dioxide 26 (22-30) mmol/L Anion Gap 11 mmol/L BUN 35 H (9-20) mg/dL Creatinine 5.66 H (0.66-1.25) mg/dL Est GFR (CKD-EPI)AfAm 10 (>60 ml/min/1.73 sqM) Est GFR (CKD-EPI)NonAf 9 (>60 ml/min/1.73 sqM) Glucose 79 (74-99) mg/dL POC Glucose (mg/dL) (75-99) mg/dL POC Glu Fashion Journalist ID Calcium 8.4 (8.4-10.2) mg/dL Phosphorus 3.8 (2.5-4.5) mg/dL Magnesium 2.1 (1.6-2.3) mg/dL Total Bilirubin 0.9 (0.2-1.3) mg/dL AST 29 (17-59) U/L ALT 20 L (21-72) U/L Alkaline Phosphatase 46 (38-126) U/L Creatine Kinase (55-170) U/L Total Creatine Kinase 28 L (55-170) U/L CK-MB (CK-2) 0.5 (0.0-2.4) ng/mL CK-MB (CK-2) Rel Index 1.8 Troponin I 0.033 (0.000-0.034) ng/mL Total Protein 6.2 L (6.3-8.2) g/dL Albumin 3.7 (3.5-5.0) g/dL 02/17/18 02/17/18 02/17/18 Range/Units 13:10 13:10 13:25 WBC (3.8-10.6) k/uL RBC (4.30-5.90) m/uL Hgb (13.0-17.5) gm/dL Hct (39.0-53.0) % MCV (80.0-100.0) fL MCH (25.0-35.0) pg MCHC (31.0-37.0) g/dL RDW (11.5-15.5) % Plt Count (150-450) k/uL Neutrophils % % Lymphocytes % % Monocytes % % Eosinophils % % Basophils % % Neutrophils # (1.3-7.7) k/uL Lymphocytes # (1.0-4.8) k/uL Monocytes # (0-1.0) k/uL Eosinophils # (0-0.7) k/uL Basophils # (0-0.2) k/uL Hypochromasia Anisocytosis PT 10.5 (9.0-12.0) sec INR 1.0 (<1.2) APTT 22.2 (22.0-30.0) sec Sodium (137-145) mmol/L Potassium (3.5-5.1) mmol/L Chloride (98-107) mmol/L Carbon Dioxide (22-30) mmol/L Anion Gap mmol/L BUN (9-20) mg/dL Creatinine (0.66-1.25) mg/dL Est GFR (CKD-EPI)AfAm (>60 ml/min/1.73 sqM) Est GFR (CKD-EPI)NonAf (>60 ml/min/1.73 sqM) Glucose (74-99) mg/dL POC Glucose (mg/dL) 159 H (75-99) mg/dL POC Glu Fashion Journalist ID Calcium (8.4-10.2) mg/dL Phosphorus (2.5-4.5) mg/dL Magnesium (1.6-2.3) mg/dL Total Bilirubin (0.2-1.3) mg/dL AST (17-59) U/L ALT (21-72) U/L Alkaline Phosphatase (38-126) U/L Creatine Kinase 29 L (55-170) U/L Total Creatine Kinase (55-170) U/L CK-MB (CK-2) (0.0-2.4) ng/mL CK-MB (CK-2) Rel Index Troponin I (0.000-0.034) ng/mL Total Protein (6.3-8.2) g/dL Albumin (3.5-5.0) g/dL 02/17/18 Range/Units 14:17 WBC (3.8-10.6) k/uL RBC (4.30-5.90) m/uL Hgb (13.0-17.5) gm/dL Hct (39.0-53.0) % MCV (80.0-100.0) fL MCH (25.0-35.0) pg MCHC (31.0-37.0) g/dL RDW (11.5-15.5) % Plt Count (150-450) k/uL Neutrophils % % Lymphocytes % % Monocytes % % Eosinophils % % Basophils % % Neutrophils # (1.3-7.7) k/uL Lymphocytes # (1.0-4.8) k/uL Monocytes # (0-1.0) k/uL Eosinophils # (0-0.7) k/uL Basophils # (0-0.2) k/uL Hypochromasia Anisocytosis PT (9.0-12.0) sec INR (<1.2) APTT (22.0-30.0) sec Sodium (137-145) mmol/L Potassium (3.5-5.1) mmol/L Chloride (98-107) mmol/L Carbon Dioxide (22-30) mmol/L Anion Gap mmol/L BUN (9-20) mg/dL Creatinine (0.66-1.25) mg/dL Est GFR (CKD-EPI)AfAm (>60 ml/min/1.73 sqM) Est GFR (CKD-EPI)NonAf (>60 ml/min/1.73 sqM) Glucose (74-99) mg/dL POC Glucose (mg/dL) 185 H (75-99) mg/dL POC Glu Fashion Journalist ID Calcium (8.4-10.2) mg/dL Phosphorus (2.5-4.5) mg/dL Magnesium (1.6-2.3) mg/dL Total Bilirubin (0.2-1.3) mg/dL AST (17-59) U/L ALT (21-72) U/L Alkaline Phosphatase (38-126) U/L Creatine Kinase (55-170) U/L Total Creatine Kinase (55-170) U/L CK-MB (CK-2) (0.0-2.4) ng/mL CK-MB (CK-2) Rel Index Troponin I (0.000-0.034) ng/mL Total Protein (6.3-8.2) g/dL Albumin (3.5-5.0) g/dL - EKG Data EKG Comments: Ventricular rate 67,. Full 222, QRS 94, QT/QTc 440/464. Sinus rhythm with first-degree AV. No concern for acute ischemia. (Vinod Welch) Disposition <Alpesh Figueredo - Last Filed: 02/17/18 15:02> Is patient prescribed a controlled substance at d/c from ED?: No Decision Time: 15:31 <Vinod Welch - Last Filed: 02/17/18 15:32> Clinical Impression: Missed dialysis, CHF (congestive heart failure) Disposition: ADMITTED IP TO THIS HOSP Condition: Fair Referrals: Jomar Rangel MD [Primary Care Provider] - 1-2 days
[2018-02-17 12:54] LABS: Glucose,Whole Blood 69 mg/dL (75-99)
[2018-02-17] MEDS ORDERED: DEXTROSE 50%-WATER 50 ML SYRINGE IVP STA (12:55)
[2018-02-17 13:12] LABS: Glucose,Whole Blood 82 mg/dL (75-99)
[2018-02-17 13:24] LABS: Anisocytosis Slight; Basophils % (A) 0 %; Eosinophils # (A) 0.2 k/uL (0-0.7); Eosinophils % (A) 1 %; HCT 36.7 % (39.0-53.0); HGB 11.8 gm/dL (13.0-17.5); Hypochromasia Slight; Lymphocytes # (A) 0.3 k/uL (1.0-4.8); Lymphocytes % (A) 3 %; MCH 28.7 pg (25.0-35.0); MCHC 32.3 g/dL (31.0-37.0); MCV 88.8 fL (80.0-100.0); Mean Platelet Volume 6.7; Monocytes # (A) 0.6 k/uL (0-1.0); Monocytes % (A) 5 %; Neutrophils # (A) 10.4 k/uL (1.3-7.7); Neutrophils % (A) 89 %; Platelet Count 298 k/uL (150-450); RBC 4.13 m/uL (4.30-5.90); RDW 16.9 % (11.5-15.5); WBC 11.6 k/uL (3.8-10.6)
[2018-02-17 13:27] LABS: Glucose,Whole Blood 159 mg/dL (75-99)
[2018-02-17 13:33] LABS: Partial Thromboplastin Time 22.2 sec (22.0-30.0); Prothrombin Time 10.5 sec (9.0-12.0)
[2018-02-17 13:50] LABS: Albumin 3.7 g/dL (3.5-5.0); Calcium 8.4 mg/dL (8.4-10.2); Phosphorus 3.8 mg/dL (2.5-4.5); Total Bilirubin 0.9 mg/dL (0.2-1.3); Total Protein 6.2 g/dL (6.3-8.2)
[2018-02-17 13:52] LABS: Magnesium 2.1 mg/dL (1.6-2.3); Potassium 4.7 mmol/L (3.5-5.1)
[2018-02-17 13:56] LABS: Creatine Kinase MB 0.5 ng/mL (0.0-2.4); Troponin I 0.033 ng/mL (0.000-0.034)
--- NOTE | 2018-02-17 14:03 | XR ---
EXAMINATION TYPE: XR chest 2V DATE OF EXAM: 02/17/2018 HISTORY: altered mental status. REFERENCE: Previous study dated 02/11/2018. FINDINGS: There has been a midline sternotomy. There is a large-bore double-lumen catheter in place v ia a right internal jugular approach. Its tip is in the right atrium. The heart is enlarged. There is vascular congestion and interstitial change. Pleural spaces appear cl ear. IMPRESSION: FINDINGS CONSISTENT WITH MILD HEART FAILURE.
[2018-02-17 14:20] LABS: Glucose,Whole Blood 185 mg/dL (75-99)
[2018-02-17] MEDS ORDERED: ACETAMINOPHEN TAB 325 MG TAB PO PRN (15:27)
[2018-02-17] MEDS ORDERED: NALOXONE 0.4 MG/ML 1 ML VIAL IV PRN (15:27)
[2018-02-17] MEDS ORDERED: HYDROmorphone 0.5 MG/0.5 ML SYRINGE IVP PRN (16:18)
[2018-02-17 17:15] LABS: Glucose,Whole Blood 154 mg/dL (75-99)
[2018-02-17] MEDS: INSULIN ASPART 100 UNIT/ML 1 ML 10 ML VIAL SQ SCH ×2 (17:47→20:35)
[2018-02-17] MEDS: CARVEDILOL 12.5 MG TAB PO SCH (17:47)
[2018-02-17] MEDS: ATORVASTATIN 10 MG TAB PO SCH (20:35)
[2018-02-17 20:39] LABS: Glucose,Whole Blood 287 mg/dL (75-99)
[2018-02-17 23:21] LABS: Hemoglobin A1C 5.6 % (4.0-6.0)
[2018-02-18 02:15] LABS: Glucose,Whole Blood 190 mg/dL (75-99)
[2018-02-18] MEDS: LEVOTHYROXINE 25 MCG TAB PO SCH (05:56)
[2018-02-18] MEDS: LISINOPRIL 20 MG TAB PO SCH (07:26)
[2018-02-18] MEDS: INSULIN ASPART 100 UNIT/ML 1 ML 10 ML VIAL SQ SCH ×4 (07:26→21:07)
[2018-02-18] MEDS: CARVEDILOL 12.5 MG TAB PO SCH ×2 (07:26→17:24)
[2018-02-18] MEDS: NIFEdipine XL 90 MG TAB.ER.24 PO SCH (07:27)
[2018-02-18] MEDS: predniSONE 20 MG TAB PO SCH (07:29)
[2018-02-18 07:39] LABS: Glucose,Whole Blood 73 mg/dL (75-99)
[2018-02-18 08:13] LABS: Appearance,Urine Clear (Clear); Bilirubin,Urine Negative (Negative); Blood,Urine Moderate (Negative); Color,Urine Yellow; Glucose,Urine (UA) 2+ (Negative); Ketones,Urine Negative (Negative); Leukocyte Esterase,Urine Negative (Negative); Mucus,Urine Rare /hpf; Nitrite,Urine Negative (Negative); PH, Urine 7.5 (5.0-8.0); Protein,Urine 2+ (Negative); RBC,Urine 39 /hpf (0-5); Specific Gravity,Urine 1.008 (1.001-1.035); Urobilinogen,Urine <2.0 mg/dL (<2.0)
[2018-02-18] MEDS ORDERED: LEVOFLOXACIN 500 MG TAB PO SCH (09:00)
--- NOTE | 2018-02-18 10:13 | P.NPCON ---
History of Present Illness - Reason for Consult acute renal failure - History of Present Illness Reason for consultation: Acute kidney injury History of present illness: Patient is a 82-year-old male seen in renal consultation for acute kidney injury , currently hemodialysis dependent. He is maintained on hemodialysis on a Monday schedule via a permacath. Patient went for hemodialysis yesterday but was quite weak and states he also lost consciousness. His blood sugar when checked at the dialysis center was 35. He was subsequently sent to the hospital. Patient's symptoms improved with dextrose. He is currently seen while undergoing hemodialysis. He is awake and alert. Denies chest pain or shortness of breath. No vomiting or diarrhea. 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 He has completed rituximab infusions. Hemodynamically stable. No fever or chills. Vital signs are stable. General: The patient appeared well nourished and normally developed. HEENT: Head exam is unremarkable. Neck is without jugular venous distension. LUNGS: Lungs are clear to auscultation and percussion. Breath sounds decreased. HEART: Rate and Rhythm are regular. First and second heart sounds normal. No murmurs, rubs or gallops. ABDOMEN: Abdominal exam reveals normal bowel sounds. Non-tender and non- distended. No evidence of peritonitis. EXTREMITITES: No clubbing, cyanosis, or edema. 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 ESRD with hemodialysis, current wound on R heel, prostrate cancer with surgery, iron anemia, benign colon polyps, diverticular disease, hypothyroid, aortic stenosis with valve replacement. History of Any Multi-Drug Resistant Organisms: None Reported Past Surgical History: Cardiac Valve Replacement, Heart Catheterization, Hernia Repair, Joint Replacement, Prostate Surgery, Tonsillectomy Additional Past Surgical History / Comment(s): R hemodialysis catheter, 2014 aortic valve replaced, prostatectomy, colonoscopy with benign polypectomy, bilateral cataract removals, L eye retinal surgery, total R knee replacement. Past Anesthesia/Blood Transfusion Reactions: No Reported Reaction Past Psychological History: No Psychological Hx Reported Additional Psychological History / Comment(s): Single and lives independently. Has caregivers. Stopped smoking several years ago. 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 No experience. No recent travel history. No animals in the home Smoking Status: Never smoker Past Alcohol Use History: None Reported Additional Past Alcohol Use History / Comment(s): Pt states he started smoking in college and was a light smoker. He cannot recall when he actually quit but states he only smoked lightly for a few years. Past Drug Use History: None Reported - Past Family History Father Family Medical History: No Reported History Additional Family Medical History / Comment(s): age 92.5 years old- from old age Mother Family Medical History: Myocardial Infarction ([place]) Medications and Allergies Home Medications Medication Instructions Recorded Confirmed Type Levothyroxine Sodium [Synthroid] 25 mcg PO DAILY 05/05/14 02/17/18 History Simvastatin [Zocor] 20 mg PO HS 05/05/14 02/17/18 History Ramipril [Altace] 10 mg PO DAILY 12/22/17 02/17/18 History Carvedilol [Coreg*] 12.5 mg PO BID 12/23/17 02/17/18 History NIFEdipine [NIFEdipine ER] 90 mg PO DAILY 12/23/17 02/17/18 History Insulin Lispro [humaLOG Kwikpen] See Protocol SQ QID 01/25/18 02/17/18 History Insulin NPL/Insulin Lispro 20 unit SQ BID 01/25/18 02/17/18 History [humaLOG MIX 75-25 VIAL] Sulfamethox-Tmp 400-80Mg [Bactrim 1 each PO MoWeFr tab 01/29/18 02/17/18 Rx SS 400-80 mg] predniSONE 40 mg PO DAILY tab 01/29/18 02/17/18 Rx Insuln Asp Prt/Insulin Aspart 15 unit SQ BID 02/17/18 02/17/18 History [NovoLOG MIX 70-30 VIAL] Allergies Allergy/AdvReac Type Severity Reaction Status Date / Time No Known Allergies Allergy Verified 02/17/18 16:13 Physical Exam Vitals: Vital Signs Temp Pulse Pulse Resp BP BP Pulse Ox 02/18/18 07:00 98.3 F 74 18 135/61 94 L 02/17/18 23:00 98.1 F 74 18 126/52 98 02/17/18 17:37 97.6 F 72 16 134/67 97 02/17/18 16:51 97.8 F 68 16 136/74 97 02/17/18 15:15 67 20 136/72 99 02/17/18 14:15 68 20 135/68 98 02/17/18 13:10 64 20 125/73 98 02/17/18 12:08 96.9 F L 62 18 119/61 97 Intake and Output 02/17/18 02/18/18 02/18/18 22:59 06:59 14:59 Intake Total 325 300 Balance 325 300 Intake: Oral 325 300 Other: Voiding Method Toilet Toilet # Voids 0 0 Weight 102 kg Results - Lab Results Most recent lab results Calcium 8.4 mg/dL (8.4-10.2) 02/17/18 13:10 Phosphorus 3.8 mg/dL (2.5-4.5) 02/17/18 13:10 Magnesium 2.1 mg/dL (1.6-2.3) 02/17/18 13:10 02/17/18 13:10 02/17/18 13:10 Assessment and Plan Plan: Assessment: 1. Acute kidney injury, currently hemodialysis dependent. He is maintained on hemodialysis on a Monday schedule via permacath. 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 There appears to be no recovery of renal function at this time. 2. 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 He has completed 4 doses of rituximab infusions. 3. Benign hypertension. Controlled. 4. Diabetes mellitus. 5. Hypoglycemia. Resolved with dextrose. Plan: Currently seen while undergoing hemodialysis. Next hemodialysis on Monday. Maintain prednisone. Thank you for the consultation. I will continue to follow the patient with you during his hospital stay.
[2018-02-18 12:03] LABS: Glucose,Whole Blood 143 mg/dL (75-99)
--- NOTE | 2018-02-18 14:20 | P.HPIM ---
History of Present Illness H&P Date: 02/18/18 Gerson Delvalle is an 82-year-old male who presented to [facility] emergency room due to confusion and hypoglycemia, patient went to dialysis Center on the day of admission however he was significantly confused his a glucose level was very low at 35 EMS were called and he was sent to emergency room patient received IV glucose in the emergency room and was admitted to medical floor for further evaluation and treatment. Patient was maintained on NovoLog Mix 70/30 mix 15 units twice a day this was discontinued on admission and patient was kept on the on sliding scale. Nephrology consultation was requested for continuing hemodialysis. 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 ESRD with hemodialysis, current wound on R heel, prostrate cancer with surgery, iron anemia, benign colon polyps, diverticular disease, hypothyroid, aortic stenosis with valve replacement. History of Any Multi-Drug Resistant Organisms: None Reported Past Surgical History: Cardiac Valve Replacement, Heart Catheterization, Hernia Repair, Joint Replacement, Prostate Surgery, Tonsillectomy Additional Past Surgical History / Comment(s): R hemodialysis catheter, 2014 aortic valve replaced, prostatectomy, colonoscopy with benign polypectomy, bilateral cataract removals, L eye retinal surgery, total R knee replacement. Past Anesthesia/Blood Transfusion Reactions: No Reported Reaction Past Psychological History: No Psychological Hx Reported Additional Psychological History / Comment(s): Single and lives independently. Has caregivers. Stopped smoking several years ago. 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 No experience. No recent travel history. No animals in the home Smoking Status: Never smoker Past Alcohol Use History: None Reported Additional Past Alcohol Use History / Comment(s): Pt states he started smoking in college and was a light smoker. He cannot recall when he actually quit but states he only smoked lightly for a few years. Past Drug Use History: None Reported Additional History: Acute kidney injury about 6 months ago secondary to necrotizing and crescentic glomerulonephritis patient had kidney biopsy and was transferred to [facility] where he received plasmapheresis with no improvement currently maintained on hemodialysis. - Past Family History Father Family Medical History: No Reported History Additional Family Medical History / Comment(s): age 92.5 years old- from old age Mother Family Medical History: Myocardial Infarction ([place]) Medications and Allergies Home Medications Medication Instructions Recorded Confirmed Type Levothyroxine Sodium [Synthroid] 25 mcg PO DAILY 05/05/14 02/17/18 History Simvastatin [Zocor] 20 mg PO HS 05/05/14 02/17/18 History Ramipril [Altace] 10 mg PO DAILY 12/22/17 02/17/18 History Carvedilol [Coreg*] 12.5 mg PO BID 12/23/17 02/17/18 History NIFEdipine [NIFEdipine ER] 90 mg PO DAILY 12/23/17 02/17/18 History Insulin Lispro [humaLOG Kwikpen] See Protocol SQ QID 01/25/18 02/17/18 History Insulin NPL/Insulin Lispro 20 unit SQ BID 01/25/18 02/17/18 History [humaLOG MIX 75-25 VIAL] Sulfamethox-Tmp 400-80Mg [Bactrim 1 each PO MoWeFr tab 01/29/18 02/17/18 Rx SS 400-80 mg] predniSONE 40 mg PO DAILY tab 01/29/18 02/17/18 Rx Insuln Asp Prt/Insulin Aspart 15 unit SQ BID 02/17/18 02/17/18 History [NovoLOG MIX 70-30 VIAL] Allergies Allergy/AdvReac Type Severity Reaction Status Date / Time No Known Allergies Allergy Verified 02/17/18 16:13 Physical Exam Vitals: Vital Signs Temp Pulse Pulse Resp BP BP Pulse Ox 02/18/18 07:00 98.3 F 74 18 135/61 94 L 02/17/18 23:00 98.1 F 74 18 126/52 98 02/17/18 17:37 97.6 F 72 16 134/67 97 02/17/18 16:51 97.8 F 68 16 136/74 97 02/17/18 15:15 67 20 136/72 99 02/17/18 14:15 68 20 135/68 98 Intake and Output 02/17/18 02/18/18 02/18/18 22:59 06:59 14:59 Intake Total 325 300 Output Total 400 Balance 325 300 -400 Intake: Oral 325 300 Output: Urine 400 Other: Voiding Method Toilet Toilet # Voids 0 0 Weight 102 kg In general patient is alert and oriented 3 in no apparent distress HEENT head normocephalic and atraumatic Neck is supple no JVD no goiter no lymphadenopathy Chest exam reveals a few scattered crackles no wheezing Cardiac exam reveals regular heart sounds S1 and S2 no gallops no murmurs Abdomen is soft nontender no organomegaly with normal bowel sounds Extremity exam reveals no edema no cyanosis or clubbing Neurological examination reveals no gross focal deficits Results CBC & Chem 7: 02/17/18 13:10 02/17/18 13:10 Labs: Abnormal Lab Results - Last 24 Hours (Table) 02/17/18 02/17/18 02/17/18 Range/Units 13:10 14:17 17:10 POC Glucose (mg/dL) 185 H 154 H (75-99) mg/dL Creatine Kinase 29 L (55-170) U/L Urine Protein (Negative) Urine Glucose (UA) (Negative) Urine Blood (Negative) Urine RBC (0-5) /hpf Urine Mucus (None) /hpf 02/17/18 02/18/18 02/18/18 Range/Units 20:24 02:12 07:23 POC Glucose (mg/dL) 287 H 190 H 73 L (75-99) mg/dL Creatine Kinase (55-170) U/L Urine Protein (Negative) Urine Glucose (UA) (Negative) Urine Blood (Negative) Urine RBC (0-5) /hpf Urine Mucus (None) /hpf 02/18/18 02/18/18 Range/Units 07:35 11:56 POC Glucose (mg/dL) 143 H (75-99) mg/dL Creatine Kinase (55-170) U/L Urine Protein 2+ H (Negative) Urine Glucose (UA) 2+ H (Negative) Urine Blood Moderate H (Negative) Urine RBC 39 H (0-5) /hpf Urine Mucus Rare H (None) /hpf Thrombosis Risk Factor Assmnt - Choose All That Apply Each Factor Represents 1 point: Heart failure (<1month), Obesity (BMI >25) Each Risk Factor Represents 3 Points: Age 75 years or older Thrombosis Risk Factor Assessment Total Risk Factor Score: 5 Thrombosis Risk Factor Assessment Level: High Risk Assessment and Plan Plan: #1 episodes of hypoglycemia with mental status changes #2 acute renal failure maintained on hemodialysis #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 patient insulin needs #5 underlying history of hypertension #6 confusion and mental status changes on presentation related to hypoglycemia results #7 underlying history of hypothyroidism #8 underlying history of hyperlipidemia Medication and labs were reviewed, add subcu heparin for DVT prophylaxis Possible discharge to home tomorrow if stable
[2018-02-18 17:26] LABS: Glucose,Whole Blood 226 mg/dL (75-99)
[2018-02-18 20:39] LABS: Glucose,Whole Blood 169 mg/dL (75-99)
[2018-02-18] MEDS: ATORVASTATIN 10 MG TAB PO SCH (21:07)
[2018-02-19 02:28] LABS: Glucose,Whole Blood 95 mg/dL (75-99)
[2018-02-19] MEDS: LEVOTHYROXINE 25 MCG TAB PO SCH (05:54)
[2018-02-19 06:06] VITALS: BP 169/84; PULSE 81; RESP 17; TEMP 99.6
[2018-02-19 07:22] LABS: Glucose,Whole Blood 92 mg/dL (75-99)
[2018-02-19] MEDS: INSULIN ASPART 100 UNIT/ML 1 ML 10 ML VIAL SQ SCH ×2 (07:48→12:44)
[2018-02-19 07:50] LABS: Anisocytosis Slight; Basophils % (A) 0 %; Eosinophils # (A) 0.1 k/uL (0-0.7); Eosinophils % (A) 1 %; HCT 32.8 % (39.0-53.0); HGB 10.6 gm/dL (13.0-17.5); Hypochromasia Moderate; Lymphocytes # (A) 0.5 k/uL (1.0-4.8); Lymphocytes % (A) 6 %; MCH 29.1 pg (25.0-35.0); MCHC 32.4 g/dL (31.0-37.0); MCV 89.8 fL (80.0-100.0); Mean Platelet Volume 6.7; Monocytes # (A) 0.8 k/uL (0-1.0); Monocytes % (A) 10 %; Neutrophils # (A) 6.2 k/uL (1.3-7.7); Neutrophils % (A) 80 %; Platelet Count 266 k/uL (150-450); RBC 3.65 m/uL (4.30-5.90); RDW 16.5 % (11.5-15.5); WBC 7.8 k/uL (3.8-10.6)
[2018-02-19] MEDS: predniSONE 20 MG TAB PO SCH (07:54)
[2018-02-19] MEDS: NIFEdipine XL 90 MG TAB.ER.24 PO SCH (07:54)
[2018-02-19] MEDS: LISINOPRIL 20 MG TAB PO SCH (07:54)
[2018-02-19] MEDS: CARVEDILOL 12.5 MG TAB PO SCH (07:54)
[2018-02-19 08:04] LABS: Albumin 2.8 g/dL (3.5-5.0); Calcium 7.8 mg/dL (8.4-10.2); Potassium 4.2 mmol/L (3.5-5.1); Total Bilirubin 0.8 mg/dL (0.2-1.3); Total Protein 4.9 g/dL (6.3-8.2)
[2018-02-19 12:36] LABS: Glucose,Whole Blood 182 mg/dL (75-99)
--- NOTE | 2018-02-19 13:46 | P.DS ---
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 patient insulin needs #5 underlying history of hypertension #6 confusion and mental status changes on presentation related to hypoglycemia results #7 underlying history of hypothyroidism #8 underlying history of hyperlipidemia Discussed with nephrology services Dr. Berry, recommending keep prednisone 40 mg daily. No need for Bactrim antibiotic. D/C jonny inhibitors at this time per nephrology Hemodialysis Tuesdays, , monday. Insulin has been changed to 10 units of Lantus once a day at night Jonny inhibitor has been DC'd per nephrology. Hydralazine 25 mg twice a day has been added Hospital course Gerson Delvalle is an 82-year-old male who presented to [facility] emergency room due to confusion and hypoglycemia, patient went to dialysis Center on the day of admission however he was significantly confused his a glucose level was very low at 35 EMS were called and he was sent to emergency room patient received IV glucose in the emergency room and was admitted to medical floor for further evaluation and treatment. Patient was maintained on NovoLog Mix 70/30 mix 15 units twice a day this was discontinued on admission and patient was kept on the on sliding scale. Nephrology consultation was requested for continuing hemodialysis. On 02/19/2018. Patient's blood sugar has improved. Patient has been on sliding scale insulin getting 1-3 units with meals. At this time patient states he feels ready to go home. Discussed case with nephrology services Dr. Berry. At this time will DC jonny inhibitors, keep prednisone an DC Bactrim. Patient to follow-up for hemodialysis Monday. Patient to follow-up with primary care provider and consulting providers. At this time patient denies chest pain or shortness of breath. Patient denies nausea vomiting or diarrhea. Patient denies any urinary burning or frequency. I nsulin has been changed to 10 units of Lantus once a day at night Jonny inhibitor has been DC'd per nephrology. Hydralazine 25 mg twice a day has been added I performed an examination of the patient and discussed their management with the Nurse Practitioner. I have reviewed the Nurse Practitioner's notes and agree with the documented findings and plan of care Patient Condition at Discharge: Stable Plan - Discharge Summary New Discharge Prescriptions: New hydrALAZINE HCL 25 mg PO BID 30 Days #60 tablet Insulin Glargine [Lantus] 10 unit SQ HS #1 vial Continue Levothyroxine Sodium [Synthroid] 25 mcg PO DAILY Simvastatin [Zocor] 20 mg PO HS NIFEdipine [NIFEdipine ER] 90 mg PO DAILY Carvedilol [Coreg*] 12.5 mg PO BID predniSONE 40 mg PO DAILY tab Discontinued Ramipril [Altace] 10 mg PO DAILY Insulin NPL/Insulin Lispro [humaLOG MIX 75-25 VIAL] 20 unit SQ BID Insulin Lispro [humaLOG Kwikpen] See Protocol SQ QID Sulfamethox-Tmp 400-80Mg [Bactrim SS 400-80 mg] 1 each PO MoWeFr tab Insuln Asp Prt/Insulin Aspart [NovoLOG MIX 70-30 VIAL] 15 unit SQ BID Discharge Medication List Levothyroxine Sodium [Synthroid] 25 mcg PO DAILY 05/05/14 [History] Simvastatin [Zocor] 20 mg PO HS 05/05/14 [History] Carvedilol [Coreg*] 12.5 mg PO BID 12/23/17 [History] NIFEdipine [NIFEdipine ER] 90 mg PO DAILY 12/23/17 [History] predniSONE 40 mg PO DAILY tab 01/29/18 [Rx] Insulin Glargine [Lantus] 10 unit SQ HS #1 vial 02/19/18 [Rx] hydrALAZINE HCL 25 mg PO BID 30 Days #60 tablet 02/19/18 [Rx] Follow up Appointment(s)/Referral(s): Jomar Rangel MD [Primary Care Provider] - 1-2 days Eugenia Berry MD [STAFF PHYSICIAN] - 1 Week Activity/Diet/Wound Care/Special Instructions: Activity as tolerated Diet renal Patient to follow-up with hemodialysis Monday Discharge Disposition: HOME SELF-CARE
--- NOTE | 2018-02-19 14:53 | PN ---
PROGRESS NOTE Patient was admitted to the hospital with hypoglycemia. He is currently doing well and wants to go home. He is scheduled for hemodialysis tomorrow. Urine output remains on the lower side. The patient's blood pressure has been running high. I see that he is maintained on JEANMARIE inhibitors again. The. We can increase the Coreg and we will need to hold off on the JEANMARIE inhibitors for now. The as we are hoping for renal recovery from the acute vasculitis. PHYSICAL EXAMINATION: Blood pressure this morning was 169/84, heart rate 81 per minute. He is afebrile. Examination of the heart, S1, S2. Examination of the lungs, bilateral breath sounds are heard. Abdomen is soft, nontender. Examination of the lower extremities shows no evidence of edema. 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 LABS: 1. Show sodium 140, potassium 4.2, chloride 107, BUN 29, serum creatinine 5.01, hemoglobin 10.6 g/dL. ASSESSMENT: 1. End-stage renal disease, secondary to acute kidney injury and acute vasculitis, status post 4 treatments of Rituxan, currently maintained on prednisone. Patient does have some urine output. However, his serum creatinine remains significantly elevated. We will wait for in the month and then I will resume JEANMARIE inhibitors. 2. Hypertension, currently uncontrolled. We can increase the Coreg to 25 mg b.i.d. as we will be taking him off of the JEANMARIE inhibitors. Blood pressure will also be monitored as outpatient on dialysis and medications will be adjusted accordingly. 3. Hypoglycemia on admission, currently improved. 4. Generalized debility. 5. Anemia of chronic disease. PLAN: Okay to DC Bactrim. Continue with the prednisone. DC ramipril/Zestril and increase Coreg if needed for hypertension. MMODL / IJN: [id number] /
== END 2018-02-19 15:47 | disposition home or self-care (01) ==
LOC: EC 12:06 → 4MS4W 15:02
PROVIDERS: ADMIT Internal Medicine; ATTEND Internal Medicine
DX: E11.649 Type 2 diabetes mellitus with hypoglycemia without coma (principal); N17.9 Acute kidney failure, unspecified; I77.6 Arteritis, unspecified; E11.22 Type 2 diabetes mellitus with diabetic chronic kidney disease; I13.2 Hypertensive heart and chronic kidney disease with heart failure and with stage 5 chronic kidney disease, or end stage renal disease; N18.6 End stage renal disease; I50.9 Heart failure, unspecified; E03.9 Hypothyroidism, unspecified; E78.5 Hyperlipidemia, unspecified; N05.7 Unspecified nephritic syndrome with diffuse crescentic glomerulonephritis; N05.8 Unspecified nephritic syndrome with other morphologic changes; E66.9 Obesity, unspecified; K57.90 Diverticulosis of intestine, part unspecified, without perforation or abscess without bleeding; D63.1 Anemia in chronic kidney disease; Z68.30 Body mass index [BMI] 30.0-30.9, adult; Z79.4 Long term (current) use of insulin; Z99.2 Dependence on renal dialysis; Z87.891 Personal history of nicotine dependence; Z79.890 Hormone replacement therapy; Z79.899 Other long term (current) drug therapy; Z86.010 Personal history of colon polyps; Z95.2 Presence of prosthetic heart valve; Z79.52 Long term (current) use of systemic steroids; Z96.651 Presence of right artificial knee joint; Z85.46 Personal history of malignant neoplasm of prostate; Z79.2 Long term (current) use of antibiotics; Z87.01 Personal history of pneumonia (recurrent); Z90.79 Acquired absence of other genital organ(s)
CPT/HCPCS: 96374; 99285; 36415; 93005; 83880; 80053 ×2; 82550; 82553; 83735; 84100; 84484; 85025 ×2; 85610; 85730; 81001; 87040; 83036; 71046; G0378 ×3; J7512 ×2; 90935

== ENCOUNTER 2018-03-07 13:27 | Inpatient (IN) | payer MEDICARE ==
[2018-03-07] MEDS ORDERED: SODIUM CHLORIDE 0.9% 1,000 ML IV STA (13:34)
[2018-03-07] MEDS ORDERED: INSULIN REGULAR 100 UNIT/ML VIAL IV ONE (14:16)
--- NOTE | 2018-03-07 14:16 | ED ---
Syncope HPI - General Chief Complaint: Syncope Stated Complaint: GI Bleed/near syncope Time Seen by Provider: 03/07/18 13:27 Source: patient, EMS, RN notes reviewed Mode of arrival: EMS Limitations: no limitations - History of Present Illness Initial Comments: This 82-year-old male who is brought in by EMS. He is had a near-syncopal of sotalol in a toilet trained have a bowel movement. He was noted have very dark tarry looking stool. EMS was called when helping the patient up he did pass out for about 30 seconds he did regain consciousness quickly. Patient denies any head neck or back pain is had some weakness. The patient was also found to have a random glucose 515 per EMS. He is insulin-dependent. He also has chronic renal failure does get dialysis 3 days weak the last was yesterday. Tomorrow. He has had similar experiences in the past. No other modifying factors at this time he is not on any blood thinners he does have an aortic valve issue he states MD Complaint: loss of consciousness, almost passed out - Related Data Home Medications Medication Instructions Recorded Confirmed Levothyroxine Sodium [Synthroid] 25 mcg PO DAILY 05/05/14 03/07/18 Simvastatin [Zocor] 20 mg PO HS 05/05/14 03/07/18 Carvedilol [Coreg*] 12.5 mg PO BID 12/23/17 03/07/18 NIFEdipine [NIFEdipine ER] 90 mg PO DAILY 12/23/17 03/07/18 Previous Rx's Medication Instructions Recorded Insulin Glargine [Lantus] 10 unit SQ HS #1 vial 02/19/18 Allergies Allergy/AdvReac Type Severity Reaction Status Date / Time No Known Allergies Allergy Verified 03/07/18 14:16 Review of Systems ROS Statement: Those systems with pertinent positive or pertinent negative responses have been documented in the HPI. ROS Other: All systems not noted in ROS Statement are negative. 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 ESRD with hemodialysis, current wound on R heel, prostrate cancer with surgery, iron anemia, benign colon polyps, diverticular disease, hypothyroid, aortic stenosis with valve replacement. History of Any Multi-Drug Resistant Organisms: None Reported Past Surgical History: Cardiac Valve Replacement, Heart Catheterization, Hernia Repair, Joint Replacement, Prostate Surgery, Tonsillectomy Additional Past Surgical History / Comment(s): R hemodialysis catheter, 2014 aortic valve replaced, prostatectomy, colonoscopy with benign polypectomy, bilateral cataract removals, L eye retinal surgery, total R knee replacement. Past Anesthesia/Blood Transfusion Reactions: No Reported Reaction Past Psychological History: No Psychological Hx Reported Smoking Status: Never smoker Past Alcohol Use History: None Reported Past Drug Use History: None Reported - Past Family History Father Family Medical History: No Reported History Additional Family Medical History / Comment(s): age 92.5 years old- from old age Mother Family Medical History: Myocardial Infarction ([place]) General Exam - General Exam Comments Initial Comments: This is a well-developed sec appearing male who is awake alert oriented 3. He does appear pale Limitations: no limitations General appearance: alert, in no apparent distress Head exam: Present: atraumatic, normocephalic, normal inspection Eye exam: Present: PERRL, EOMI, other (Pale conjunctiva). Absent: scleral icterus, conjunctival injection, periorbital swelling ENT exam: Present: normal exam, mucous membranes moist Neck exam: Present: normal inspection. Absent: tenderness, meningismus, lymphadenopathy Respiratory exam: Present: normal lung sounds bilaterally. Absent: respiratory distress, wheezes, rales, rhonchi, stridor Cardiovascular Exam: Present: regular rate, normal rhythm, normal heart sounds. Absent: systolic murmur, diastolic murmur, rubs, gallop, clicks GI/Abdominal exam: Present: soft, normal bowel sounds. Absent: distended, tenderness, guarding, rebound, rigid, bruit, pulsatile mass Rectal exam: Present: heme (+) stool, black stool (No masses appreciable) Extremities exam: Present: normal inspection, full ROM, normal capillary refill. Absent: tenderness, pedal edema, joint swelling, calf tenderness Back exam: Present: normal inspection Neurological exam: Present: alert, oriented X3, CN II-XII intact Psychiatric exam: Present: normal affect, normal mood Skin exam: Present: warm, dry, intact, pallor. Absent: rash Course Vital Signs 03/07/18 03/07/18 03/07/18 13:37 14:33 15:57 Temperature 97.7 F Pulse Rate 73 72 75 Respiratory 18 18 18 Rate Blood Pressure 132/72 136/77 148/94 O2 Sat by Pulse 100 100 100 Oximetry - Reevaluation(s) Reevaluation #1: 03/07/18 15:30 I did discuss findings with the patient and family members. Patient will be admitted he does have heme-positive black stools hemoglobin was 10.3. Does have evidence of chronic renal failure. Case is discussed with Dr. Rangel. GI and nephrology will be consulted Reevaluation #2: 03/07/18 15:52 Patient does state his breathing is improved EKG Findings - EKG Results: EKG: interpreted by ERMD (Sinus rhythm some PACs noted. Artifact is present rate was 72. Interval 196 QRS duration 92 QT since QTC 432/473 minimal voltage criteria for LVH.) Medical Decision Making - Medical Decision Making I did discuss the case with Dr. Rangel. Patient will be admitted with GI consultation as well as nephrology consultation. Patient is awake alert and does agree with the assessment and plan. - Lab Data Result diagrams: 03/07/18 13:58 03/07/18 13:58 Lab Results 03/07/18 03/07/18 03/07/18 Range/Units 13:39 13:58 13:58 WBC (3.8-10.6) k/uL RBC (4.30-5.90) m/uL Hgb (13.0-17.5) gm/dL Hct (39.0-53.0) % MCV (80.0-100.0) fL MCH (25.0-35.0) pg MCHC (31.0-37.0) g/dL RDW (11.5-15.5) % Plt Count (150-450) k/uL Neutrophils % % Lymphocytes % % Monocytes % % Eosinophils % % Basophils % % Neutrophils # (1.3-7.7) k/uL Lymphocytes # (1.0-4.8) k/uL Monocytes # (0-1.0) k/uL Eosinophils # (0-0.7) k/uL Basophils # (0-0.2) k/uL Anisocytosis PT (9.0-12.0) sec INR (<1.2) APTT (22.0-30.0) sec Sodium 134 L (137-145) mmol/L Potassium 4.9 (3.5-5.1) mmol/L Chloride 98 (98-107) mmol/L Carbon Dioxide 24 (22-30) mmol/L Anion Gap 12 mmol/L BUN 75 H (9-20) mg/dL Creatinine 3.89 H (0.66-1.25) mg/dL Est GFR (CKD-EPI)AfAm 16 (>60 ml/min/1.73 sqM) Est GFR (CKD-EPI)NonAf 14 (>60 ml/min/1.73 sqM) Glucose 429 H (74-99) mg/dL POC Glucose (mg/dL) 424 H (75-99) mg/dL POC Glu Icu Manager ID Petitpren, Maddison Calcium 8.1 L (8.4-10.2) mg/dL Magnesium 1.8 (1.6-2.3) mg/dL Total Bilirubin 0.7 (0.2-1.3) mg/dL AST 17 (17-59) U/L ALT 24 (21-72) U/L Alkaline Phosphatase 40 (38-126) U/L Total Creatine Kinase (55-170) U/L CK-MB (CK-2) (0.0-2.4) ng/mL CK-MB (CK-2) Rel Index Troponin I (0.000-0.034) ng/mL Total Protein 5.2 L (6.3-8.2) g/dL Albumin 3.2 L (3.5-5.0) g/dL Stool Occult Blood (Negative) Acetone, Qual Negative (Negative) Blood Type A Positive Blood Type Recheck No Antibody Screen NEGATIVE Spec Expiration Date 03/10/2018235703/07/18 03/07/18 03/07/18 Range/Units 13:58 13:58 13:58 WBC 9.4 (3.8-10.6) k/uL RBC 3.51 L (4.30-5.90) m/uL Hgb 10.3 L (13.0-17.5) gm/dL Hct 32.3 L (39.0-53.0) % MCV 92.0 (80.0-100.0) fL MCH 29.5 (25.0-35.0) pg MCHC 32.0 (31.0-37.0) g/dL RDW 16.8 H (11.5-15.5) % Plt Count 280 (150-450) k/uL Neutrophils % 90 % Lymphocytes % 4 % Monocytes % 4 % Eosinophils % 1 % Basophils % 0 % Neutrophils # 8.5 H (1.3-7.7) k/uL Lymphocytes # 0.4 L (1.0-4.8) k/uL Monocytes # 0.3 (0-1.0) k/uL Eosinophils # 0.1 (0-0.7) k/uL Basophils # 0.0 (0-0.2) k/uL Anisocytosis Slight PT 10.4 (9.0-12.0) sec INR 1.0 (<1.2) APTT 17.8 L (22.0-30.0) sec Sodium (137-145) mmol/L Potassium (3.5-5.1) mmol/L Chloride (98-107) mmol/L Carbon Dioxide (22-30) mmol/L Anion Gap mmol/L BUN (9-20) mg/dL Creatinine (0.66-1.25) mg/dL Est GFR (CKD-EPI)AfAm (>60 ml/min/1.73 sqM) Est GFR (CKD-EPI)NonAf (>60 ml/min/1.73 sqM) Glucose (74-99) mg/dL POC Glucose (mg/dL) (75-99) mg/dL POC Glu Icu Manager ID Calcium (8.4-10.2) mg/dL Magnesium (1.6-2.3) mg/dL Total Bilirubin (0.2-1.3) mg/dL AST (17-59) U/L ALT (21-72) U/L Alkaline Phosphatase (38-126) U/L Total Creatine Kinase <20 L (55-170) U/L CK-MB (CK-2) 0.4 (0.0-2.4) ng/mL CK-MB (CK-2) Rel Index Troponin I 0.027 (0.000-0.034) ng/mL Total Protein (6.3-8.2) g/dL Albumin (3.5-5.0) g/dL Stool Occult Blood (Negative) Acetone, Qual (Negative) Blood Type Blood Type Recheck Antibody Screen Spec Expiration Date 03/07/18 Range/Units 13:58 WBC (3.8-10.6) k/uL RBC (4.30-5.90) m/uL Hgb (13.0-17.5) gm/dL Hct (39.0-53.0) % MCV (80.0-100.0) fL MCH (25.0-35.0) pg MCHC (31.0-37.0) g/dL RDW (11.5-15.5) % Plt Count (150-450) k/uL Neutrophils % % Lymphocytes % % Monocytes % % Eosinophils % % Basophils % % Neutrophils # (1.3-7.7) k/uL Lymphocytes # (1.0-4.8) k/uL Monocytes # (0-1.0) k/uL Eosinophils # (0-0.7) k/uL Basophils # (0-0.2) k/uL Anisocytosis PT (9.0-12.0) sec INR (<1.2) APTT (22.0-30.0) sec Sodium (137-145) mmol/L Potassium (3.5-5.1) mmol/L Chloride (98-107) mmol/L Carbon Dioxide (22-30) mmol/L Anion Gap mmol/L BUN (9-20) mg/dL Creatinine (0.66-1.25) mg/dL Est GFR (CKD-EPI)AfAm (>60 ml/min/1.73 sqM) Est GFR (CKD-EPI)NonAf (>60 ml/min/1.73 sqM) Glucose (74-99) mg/dL POC Glucose (mg/dL) (75-99) mg/dL POC Glu Icu Manager ID Calcium (8.4-10.2) mg/dL Magnesium (1.6-2.3) mg/dL Total Bilirubin (0.2-1.3) mg/dL AST (17-59) U/L ALT (21-72) U/L Alkaline Phosphatase (38-126) U/L Total Creatine Kinase (55-170) U/L CK-MB (CK-2) (0.0-2.4) ng/mL CK-MB (CK-2) Rel Index Troponin I (0.000-0.034) ng/mL Total Protein (6.3-8.2) g/dL Albumin (3.5-5.0) g/dL Stool Occult Blood Positive (Negative) Acetone, Qual (Negative) Blood Type Blood Type Recheck Antibody Screen Spec Expiration Date - Radiology Data Radiology results: report reviewed, image reviewed Critical Care Time Critical Care Time: Yes Critical Care Time: 32 minutes of critical care time which includes initial presentation with history physical labs x-rays multiple reevaluation the patient. Discussed with patient regarding findings discussed with the admitting physician review of old charting that was available and documentation of the above. Disposition Clinical Impression: Vasovagal syncope, Anemia, GI bleed, Renal failure syndrome Disposition: ADMITTED IP TO THIS [facility] Condition: Serious Referrals: Jomar Rangel MD [Primary Care Provider] - 1-2 days
[2018-03-07 14:19] LABS: Anisocytosis Slight; Basophils % (A) 0 %; Eosinophils # (A) 0.1 k/uL (0-0.7); Eosinophils % (A) 1 %; HCT 32.3 % (39.0-53.0); HGB 10.3 gm/dL (13.0-17.5); Lymphocytes # (A) 0.4 k/uL (1.0-4.8); Lymphocytes % (A) 4 %; MCH 29.5 pg (25.0-35.0); Mean Platelet Volume 6.8; Monocytes # (A) 0.3 k/uL (0-1.0); Monocytes % (A) 4 %; Neutrophils # (A) 8.5 k/uL (1.3-7.7); Neutrophils % (A) 90 %; Platelet Count 280 k/uL (150-450); RBC 3.51 m/uL (4.30-5.90); RDW 16.8 % (11.5-15.5); WBC 9.4 k/uL (3.8-10.6)
[2018-03-07 14:30] LABS: ALT 24 U/L (21-72); AST 17 U/L (17-59); Albumin 3.2 g/dL (3.5-5.0); Alkaline Phosphatase 40 U/L (38-126); Anion Gap 12 mmol/L; Blood Urea Nitrogen 75 mg/dL (9-20); Calcium 8.1 mg/dL (8.4-10.2); Carbon Dioxide 24 mmol/L (22-30); Chloride 98 mmol/L (98-107); Glucose 429 mg/dL (74-99); Magnesium 1.8 mg/dL (1.6-2.3); Potassium 4.9 mmol/L (3.5-5.1); Sodium 134 mmol/L (137-145); Total Bilirubin 0.7 mg/dL (0.2-1.3); Total Protein 5.2 g/dL (6.3-8.2)
[2018-03-07 14:37] LABS: Prothrombin Time 10.4 sec (9.0-12.0)
--- NOTE | 2018-03-07 14:38 | CT ---
EXAMINATION TYPE: CT brain wo con DATE OF EXAM: 03/07/2018 COMPARISON: None INDICATION: Syncope. DLP: 1193.4 mGycm, Automated exposure control for dose reduction was used. CONTRAST: None CT of the brain is performed utilizing 3 mm thick sections through the posterior fossa and 3 mm thick sections through the remaining calvarium. Study is performed within 24 hours of arrival to the hosp [facility]. No abnormal hyperdensity is present to suggest an acute intracranial hemorrhage. No mass lesion is evident. No acute infarcts are evident. There is some mild periventricular white matter hypodensity, likely on the basis of chronic white matter ischemic changes. Ventricles and sulci are prominent for the patient age. Retention cysts within the posterior right maxillary sinus. Remaining paranasal sinuses and mastoid a ir cells are clear. IMPRESSIONS: 1. Atrophy with periventricular white matter ischemic changes
[2018-03-07 14:42] LABS: Partial Thromboplastin Time 17.8 sec (22.0-30.0)
[2018-03-07 14:45] LABS: Creatine Kinase <20 U/L (55-170)
[2018-03-07 14:57] LABS: Creatine Kinase MB 0.4 ng/mL (0.0-2.4); Troponin I 0.027 ng/mL (0.000-0.034)
--- NOTE | 2018-03-07 15:01 | XR ---
EXAMINATION TYPE: XR chest 2V DATE OF EXAM: 03/07/2018 COMPARISON: 02/17/2018 HISTORY: 82-year-old male with syncope TECHNIQUE: AP and lateral views FINDINGS: Right-sided double-lumen hemodialysis catheter with tips in the right atrium. Median sternotomy wires are present. Heart borderline in size. Mild diffuse interstitial prominence. No consolidation or ple ural effusion. Overall appearance of improved from 02/17/2018. Old healed left clavicular shaft fractu re deformity. IMPRESSION: Cardiomegaly and interstitial changes, possible mild pulmonary vascular congestion. Overall appearanc e is improved from 02/17/2018.
[2018-03-07 15:05] LABS: Glucose,Whole Blood 424 mg/dL (75-99)
[2018-03-07] MEDS ORDERED: NALOXONE 0.4 MG/ML 1 ML VIAL IV PRN (16:21)
--- NOTE | 2018-03-07 16:27 | ED ---
Medical Decision Making - Lab Data Result diagrams: 03/07/18 13:58 03/07/18 13:58 Lab Results 03/07/18 03/07/18 03/07/18 Range/Units 13:39 13:58 13:58 WBC (3.8-10.6) k/uL RBC (4.30-5.90) m/uL Hgb (13.0-17.5) gm/dL Hct (39.0-53.0) % MCV (80.0-100.0) fL MCH (25.0-35.0) pg MCHC (31.0-37.0) g/dL RDW (11.5-15.5) % Plt Count (150-450) k/uL Neutrophils % % Lymphocytes % % Monocytes % % Eosinophils % % Basophils % % Neutrophils # (1.3-7.7) k/uL Lymphocytes # (1.0-4.8) k/uL Monocytes # (0-1.0) k/uL Eosinophils # (0-0.7) k/uL Basophils # (0-0.2) k/uL Anisocytosis PT (9.0-12.0) sec INR (<1.2) APTT (22.0-30.0) sec Sodium 134 L (137-145) mmol/L Potassium 4.9 (3.5-5.1) mmol/L Chloride 98 (98-107) mmol/L Carbon Dioxide 24 (22-30) mmol/L Anion Gap 12 mmol/L BUN 75 H (9-20) mg/dL Creatinine 3.89 H (0.66-1.25) mg/dL Est GFR (CKD-EPI)AfAm 16 (>60 ml/min/1.73 sqM) Est GFR (CKD-EPI)NonAf 14 (>60 ml/min/1.73 sqM) Glucose 429 H (74-99) mg/dL POC Glucose (mg/dL) 424 H (75-99) mg/dL POC Glu Weeder Thinner ID Yoavendy Maddison Calcium 8.1 L (8.4-10.2) mg/dL Magnesium 1.8 (1.6-2.3) mg/dL Total Bilirubin 0.7 (0.2-1.3) mg/dL AST 17 (17-59) U/L ALT 24 (21-72) U/L Alkaline Phosphatase 40 (38-126) U/L Total Creatine Kinase (55-170) U/L CK-MB (CK-2) (0.0-2.4) ng/mL CK-MB (CK-2) Rel Index Troponin I (0.000-0.034) ng/mL Total Protein 5.2 L (6.3-8.2) g/dL Albumin 3.2 L (3.5-5.0) g/dL Stool Occult Blood (Negative) Acetone, Qual Negative (Negative) Blood Type A Positive Blood Type Recheck No Antibody Screen NEGATIVE Spec Expiration Date 03/10/2018 - 235703/07/18 03/07/18 03/07/18 Range/Units 13:58 13:58 13:58 WBC 9.4 (3.8-10.6) k/uL RBC 3.51 L (4.30-5.90) m/uL Hgb 10.3 L (13.0-17.5) gm/dL Hct 32.3 L (39.0-53.0) % MCV 92.0 (80.0-100.0) fL MCH 29.5 (25.0-35.0) pg MCHC 32.0 (31.0-37.0) g/dL RDW 16.8 H (11.5-15.5) % Plt Count 280 (150-450) k/uL Neutrophils % 90 % Lymphocytes % 4 % Monocytes % 4 % Eosinophils % 1 % Basophils % 0 % Neutrophils # 8.5 H (1.3-7.7) k/uL Lymphocytes # 0.4 L (1.0-4.8) k/uL Monocytes # 0.3 (0-1.0) k/uL Eosinophils # 0.1 (0-0.7) k/uL Basophils # 0.0 (0-0.2) k/uL Anisocytosis Slight PT 10.4 (9.0-12.0) sec INR 1.0 (<1.2) APTT 17.8 L (22.0-30.0) sec Sodium (137-145) mmol/L Potassium (3.5-5.1) mmol/L Chloride (98-107) mmol/L Carbon Dioxide (22-30) mmol/L Anion Gap mmol/L BUN (9-20) mg/dL Creatinine (0.66-1.25) mg/dL Est GFR (CKD-EPI)AfAm (>60 ml/min/1.73 sqM) Est GFR (CKD-EPI)NonAf (>60 ml/min/1.73 sqM) Glucose (74-99) mg/dL POC Glucose (mg/dL) (75-99) mg/dL POC Glu Weeder Thinner ID Calcium (8.4-10.2) mg/dL Magnesium (1.6-2.3) mg/dL Total Bilirubin (0.2-1.3) mg/dL AST (17-59) U/L ALT (21-72) U/L Alkaline Phosphatase (38-126) U/L Total Creatine Kinase <20 L (55-170) U/L CK-MB (CK-2) 0.4 (0.0-2.4) ng/mL CK-MB (CK-2) Rel Index Troponin I 0.027 (0.000-0.034) ng/mL Total Protein (6.3-8.2) g/dL Albumin (3.5-5.0) g/dL Stool Occult Blood (Negative) Acetone, Qual (Negative) Blood Type Blood Type Recheck Antibody Screen Spec Expiration Date 03/07/18 Range/Units 13:58 WBC (3.8-10.6) k/uL RBC (4.30-5.90) m/uL Hgb (13.0-17.5) gm/dL Hct (39.0-53.0) % MCV (80.0-100.0) fL MCH (25.0-35.0) pg MCHC (31.0-37.0) g/dL RDW (11.5-15.5) % Plt Count (150-450) k/uL Neutrophils % % Lymphocytes % % Monocytes % % Eosinophils % % Basophils % % Neutrophils # (1.3-7.7) k/uL Lymphocytes # (1.0-4.8) k/uL Monocytes # (0-1.0) k/uL Eosinophils # (0-0.7) k/uL Basophils # (0-0.2) k/uL Anisocytosis PT (9.0-12.0) sec INR (<1.2) APTT (22.0-30.0) sec Sodium (137-145) mmol/L Potassium (3.5-5.1) mmol/L Chloride (98-107) mmol/L Carbon Dioxide (22-30) mmol/L Anion Gap mmol/L BUN (9-20) mg/dL Creatinine (0.66-1.25) mg/dL Est GFR (CKD-EPI)AfAm (>60 ml/min/1.73 sqM) Est GFR (CKD-EPI)NonAf (>60 ml/min/1.73 sqM) Glucose (74-99) mg/dL POC Glucose (mg/dL) (75-99) mg/dL POC Glu Weeder Thinner ID Calcium (8.4-10.2) mg/dL Magnesium (1.6-2.3) mg/dL Total Bilirubin (0.2-1.3) mg/dL AST (17-59) U/L ALT (21-72) U/L Alkaline Phosphatase (38-126) U/L Total Creatine Kinase (55-170) U/L CK-MB (CK-2) (0.0-2.4) ng/mL CK-MB (CK-2) Rel Index Troponin I (0.000-0.034) ng/mL Total Protein (6.3-8.2) g/dL Albumin (3.5-5.0) g/dL Stool Occult Blood Positive (Negative) Acetone, Qual (Negative) Blood Type Blood Type Recheck Antibody Screen Spec Expiration Date Disposition Clinical Impression: Vasovagal syncope, Anemia, GI bleed, Renal failure syndrome, Hyperglycemia due to type 1 diabetes mellitus Disposition: ADMITTED IP TO THIS [facility] Condition: Serious Referrals: Jomar Rangel MD [Primary Care Provider] - 1-2 days
[2018-03-07 17:32] LABS: Glucose,Whole Blood 435 mg/dL (75-99)
[2018-03-07 17:33] LABS: Amorphous Sediment,Urine Rare /hpf; Appearance,Urine Clear (Clear); Bilirubin,Urine Negative (Negative); Blood,Urine Moderate (Negative); Color,Urine Yellow; Glucose,Urine (UA) 4+ (Negative); Ketones,Urine Negative (Negative); Leukocyte Esterase,Urine Negative (Negative); Nitrite,Urine Negative (Negative); PH, Urine 6.5 (5.0-8.0); Protein,Urine 2+ (Negative); RBC,Urine 13 /hpf (0-5); Squamous Epithelial Cell,Urine <1 /hpf (0-4); Urobilinogen,Urine <2.0 mg/dL (<2.0); WBC,Urine 2 /hpf (0-5)
[2018-03-07 19:03] LABS: Glucose,Whole Blood 363 mg/dL (75-99)
[2018-03-07] MEDS: SODIUM CHLORIDE 0.9% 1,000 ML IV SCH (20:14)
[2018-03-07 20:25] LABS: Anisocytosis Slight; Basophils % (A) 0 %; Eosinophils # (A) 0.1 k/uL (0-0.7); Eosinophils % (A) 1 %; HCT 31.6 % (39.0-53.0); HGB 9.6 gm/dL (13.0-17.5); Hypochromasia Slight; Lymphocytes # (A) 0.4 k/uL (1.0-4.8); Lymphocytes % (A) 4 %; MCH 28.1 pg (25.0-35.0); MCHC 30.4 g/dL (31.0-37.0); MCV 92.6 fL (80.0-100.0); Mean Platelet Volume 7.1; Monocytes # (A) 0.6 k/uL (0-1.0); Monocytes % (A) 6 %; Neutrophils # (A) 9.5 k/uL (1.3-7.7); Neutrophils % (A) 89 %; Platelet Count 303 k/uL (150-450); RBC 3.42 m/uL (4.30-5.90); RDW 16.6 % (11.5-15.5); WBC 10.7 k/uL (3.8-10.6)
[2018-03-07 20:35] LABS: Glucose,Whole Blood 351 mg/dL (75-99)
[2018-03-07 20:46] LABS: Creatine Kinase <20 U/L (55-170)
[2018-03-07 21:00] LABS: Creatine Kinase MB 0.6 ng/mL (0.0-2.4); Troponin I 0.026 ng/mL (0.000-0.034)
[2018-03-07] MEDS: ATORVASTATIN 10 MG TAB PO SCH (21:52)
[2018-03-07] MEDS: INSULIN ASPART 100 UNIT/ML 1 ML 10 ML VIAL SQ SCH ×2 (21:52)
[2018-03-07] MEDS: CARVEDILOL 12.5 MG TAB PO SCH (21:52)
[2018-03-07] MEDS: PANTOPRAZOLE 40 MG/10 ML VIAL IV SCH (21:52)
[2018-03-08 02:33] LABS: Creatine Kinase <20 U/L (55-170)
[2018-03-08 02:46] LABS: Creatine Kinase MB 0.5 ng/mL (0.0-2.4); Troponin I 0.026 ng/mL (0.000-0.034)
[2018-03-08] MEDS: LEVOTHYROXINE 25 MCG TAB PO SCH (06:02)
[2018-03-08 07:03] LABS: Glucose,Whole Blood 133 mg/dL (75-99)
--- NOTE | 2018-03-08 08:19 | P.CONS ---
History of Present Illness - Reason for Consult Consult date: 03/08/18 Upper GI bleeding Requesting physician: Jomar Rangel - Chief Complaint Near-syncope - History of Present Illness 82-year-old gentleman admitted with a near syncopal episode in the bathroom with black colored bowel movements x 1 day. Only passed 1 black BM. Past medical history end-stage renal disease hemodialysis dependent T, TH, Sa, hypertension, diabetes mellitus, heart failure, hyperlipidemia, prostate carcinoma, colonic diverticulosis, AVR/aortic stenosis. Admission hemoglobin 10.3. MCV 92. Platelet 280. Average hemoglobin ranges between 8-11. INR 1.0. BUN 75. Creatinine 3.8. FOBT positive. CT brain atrophy with periventricular white matter ischemic changes. Denies fever, chills, abdominal pain, hematemesis or hematochezia. No recent EGD /colonoscopy. No NSAIDS, ASA or ETOH. Review of Systems Constitutional: Denies fever, chills, sweats, weight gain, or loss. HEENT: Negative for migraines, blurred vision or loss, earaches, drainage, tinnitus, oral mucosal lesions, dysphagia, or odynophagia. Cardiac: Admitted with near syncope. Negative for chest pain, arrhythmias, or palpitation. Respiratory: Negative for shortness of breath, hemoptysis, cough, or sputum production. Gastrointestinal: See HPI for pertinent findings. Genitourinary: Negative for hematuria, urgency, frequency, polyuria, dysuria, or penile discharge. Musculoskeletal: Negative for muscle aches, swelling, arthritis, and arthralgias. Neurologic: Negative for stroke or TIA. Endocrine: Negative for thyroid problems. Skin: Negative for rash or itching. 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 ESRD with hemodialysis, current wound on R heel, prostrate cancer with surgery, iron anemia, benign colon polyps, diverticular disease, hypothyroid, aortic stenosis with valve replacement.rt heel wound-goes to [facility] on mon- stated dsng changed last 03-07-18 History of Any Multi-Drug Resistant Organisms: None Reported Past Surgical History: Cardiac Valve Replacement, Heart Catheterization, Hernia Repair, Joint Replacement, Prostate Surgery, Tonsillectomy Additional Past Surgical History / Comment(s): R hemodialysis catheter, 2014 aortic valve replaced, prostatectomy, colonoscopy with benign polypectomy, bilateral cataract removals, L eye retinal surgery, total R knee replacement. Past Anesthesia/Blood Transfusion Reactions: No Reported Reaction Smoking Status: Former smoker - Past Family History Father Family Medical History: No Reported History Additional Family Medical History / Comment(s): age 92.5 years old- from old age Mother Family Medical History: Myocardial Infarction ([place]) Medications and Allergies Home Medications Medication Instructions Recorded Confirmed Type Levothyroxine Sodium [Synthroid] 25 mcg PO DAILY 05/05/14 03/07/18 History Simvastatin [Zocor] 20 mg PO HS 05/05/14 03/07/18 History Carvedilol [Coreg*] 12.5 mg PO BID 12/23/17 03/07/18 History NIFEdipine [NIFEdipine ER] 90 mg PO DAILY 12/23/17 03/07/18 History Insulin Glargine [Lantus] 10 unit SQ HS #1 vial 02/19/18 03/07/18 Rx Allergies Allergy/AdvReac Type Severity Reaction Status Date / Time No Known Allergies Allergy Verified 03/07/18 14:16 Physical Exam Vitals: Vital Signs Temp Pulse Pulse Pulse Resp BP BP 03/08/18 05:00 98.2 F 80 18 146/71 03/08/18 00:00 90 18 03/07/18 20:03 97.3 F L 89 18 156/70 03/07/18 18:55 86 18 144/73 03/07/18 17:44 81 18 146/80 03/07/18 17:00 85 18 142/72 03/07/18 15:57 75 18 148/94 03/07/18 14:33 72 18 136/77 03/07/18 13:37 97.7 F 73 18 132/72 Pulse Ox 03/08/18 05:00 98 03/08/18 00:00 03/07/18 20:03 99 03/07/18 18:55 99 03/07/18 17:44 100 03/07/18 17:00 100 03/07/18 15:57 100 03/07/18 14:33 100 03/07/18 13:37 100 Intake and Output 03/07/18 03/08/18 03/08/18 22:59 06:59 14:59 Intake Total 50 160 Output Total 210 610 Balance -160 -450 Intake: Amount of Fluid Infused ( 50 ml) Intake, IV Titration 160 Amount Sodium Chloride 0.9% 1, 160 000 ml @ 20 mls/hr IV . Q24H [facility] Rx#:[id number] Output: Urine 210 610 Other: Voiding Method Urinal # Bowel Movements 1 General appearance: The patient is alert, oriented, in no acute distress. HET: Head is normocephalic and atraumatic. Pupils are equal and reactive. Oropharynx is clear without lesions. Neck: Supple without lymphadenopathy. Trachea midline. Heart: S1 S2. Regular rate and rhythm. Lungs: No crackles or wheezes are heard. Abdomen: Soft, nontender, nondistended with bowel sounds. No peritoneal signs. No palpable organomegaly or masses. Extremities: Normal skin color and turgor. No cyanosis, rash, ulceration, clubbing, or edema. Radial and pedal pulses are 2/4 bilaterally. Neurological: No focal deficits. Strength and sensation are grossly intact. Results CBC & Chem 7: 03/07/18 20:00 03/07/18 13:58 Labs: Abnormal Lab Results - Last 24 Hours (Table) 03/07/18 03/07/18 03/07/18 Range/Units 13:39 13:58 13:58 WBC (3.8-10.6) k/uL RBC (4.30-5.90) m/uL Hgb (13.0-17.5) gm/dL Hct (39.0-53.0) % MCHC (31.0-37.0) g/dL RDW (11.5-15.5) % Neutrophils # (1.3-7.7) k/uL Lymphocytes # (1.0-4.8) k/uL APTT (22.0-30.0) sec Sodium 134 L (137-145) mmol/L BUN 75 H (9-20) mg/dL Creatinine 3.89 H (0.66-1.25) mg/dL Glucose 429 H (74-99) mg/dL POC Glucose (mg/dL) 424 H (75-99) mg/dL Calcium 8.1 L (8.4-10.2) mg/dL Total Creatine Kinase <20 L (55-170) U/L Total Protein 5.2 L (6.3-8.2) g/dL Albumin 3.2 L (3.5-5.0) g/dL Urine Protein (Negative) Urine Glucose (UA) (Negative) Urine Blood (Negative) Urine RBC (0-5) /hpf Amorphous Sediment (None) /hpf 03/07/18 03/07/18 03/07/18 Range/Units 13:58 13:58 14:50 WBC (3.8-10.6) k/uL RBC 3.51 L (4.30-5.90) m/uL Hgb 10.3 L (13.0-17.5) gm/dL Hct 32.3 L (39.0-53.0) % MCHC (31.0-37.0) g/dL RDW 16.8 H (11.5-15.5) % Neutrophils # 8.5 H (1.3-7.7) k/uL Lymphocytes # 0.4 L (1.0-4.8) k/uL APTT 17.8 L (22.0-30.0) sec Sodium (137-145) mmol/L BUN (9-20) mg/dL Creatinine (0.66-1.25) mg/dL Glucose (74-99) mg/dL POC Glucose (mg/dL) (75-99) mg/dL Calcium (8.4-10.2) mg/dL Total Creatine Kinase (55-170) U/L Total Protein (6.3-8.2) g/dL Albumin (3.5-5.0) g/dL Urine Protein 2+ H (Negative) Urine Glucose (UA) 4+ H (Negative) Urine Blood Moderate H (Negative) Urine RBC 13 H (0-5) /hpf Amorphous Sediment Rare H (None) /hpf 03/07/18 03/07/18 03/07/18 Range/Units 15:55 18:17 20:00 WBC (3.8-10.6) k/uL RBC (4.30-5.90) m/uL Hgb (13.0-17.5) gm/dL Hct (39.0-53.0) % MCHC (31.0-37.0) g/dL RDW (11.5-15.5) % Neutrophils # (1.3-7.7) k/uL Lymphocytes # (1.0-4.8) k/uL APTT (22.0-30.0) sec Sodium (137-145) mmol/L BUN (9-20) mg/dL Creatinine (0.66-1.25) mg/dL Glucose (74-99) mg/dL POC Glucose (mg/dL) 435 H 363 H (75-99) mg/dL Calcium (8.4-10.2) mg/dL Total Creatine Kinase <20 L (55-170) U/L Total Protein (6.3-8.2) g/dL Albumin (3.5-5.0) g/dL Urine Protein (Negative) Urine Glucose (UA) (Negative) Urine Blood (Negative) Urine RBC (0-5) /hpf Amorphous Sediment (None) /hpf 03/07/18 03/07/18 03/08/18 Range/Units 20:00 20:33 02:08 WBC 10.7 H (3.8-10.6) k/uL RBC 3.42 L (4.30-5.90) m/uL Hgb 9.6 L (13.0-17.5) gm/dL Hct 31.6 L (39.0-53.0) % MCHC 30.4 L (31.0-37.0) g/dL RDW 16.6 H (11.5-15.5) % Neutrophils # 9.5 H (1.3-7.7) k/uL Lymphocytes # 0.4 L (1.0-4.8) k/uL APTT (22.0-30.0) sec Sodium (137-145) mmol/L BUN (9-20) mg/dL Creatinine (0.66-1.25) mg/dL Glucose (74-99) mg/dL POC Glucose (mg/dL) 351 H (75-99) mg/dL Calcium (8.4-10.2) mg/dL Total Creatine Kinase <20 L (55-170) U/L Total Protein (6.3-8.2) g/dL Albumin (3.5-5.0) g/dL Urine Protein (Negative) Urine Glucose (UA) (Negative) Urine Blood (Negative) Urine RBC (0-5) /hpf Amorphous Sediment (None) /hpf 03/08/18 Range/Units 07:02 WBC (3.8-10.6) k/uL RBC (4.30-5.90) m/uL Hgb (13.0-17.5) gm/dL Hct (39.0-53.0) % MCHC (31.0-37.0) g/dL RDW (11.5-15.5) % Neutrophils # (1.3-7.7) k/uL Lymphocytes # (1.0-4.8) k/uL APTT (22.0-30.0) sec Sodium (137-145) mmol/L BUN (9-20) mg/dL Creatinine (0.66-1.25) mg/dL Glucose (74-99) mg/dL POC Glucose (mg/dL) 133 H (75-99) mg/dL Calcium (8.4-10.2) mg/dL Total Creatine Kinase (55-170) U/L Total Protein (6.3-8.2) g/dL Albumin (3.5-5.0) g/dL Urine Protein (Negative) Urine Glucose (UA) (Negative) Urine Blood (Negative) Urine RBC (0-5) /hpf Amorphous Sediment (None) /hpf CT Scan - head: report reviewed (Dr. Hernandez) Assessment and Plan (1) GI bleed Narrative/Plan: 82-year-old gentleman admitted with a near syncopal episode with reported melanotic bowel movements positive FOBT suggestive of acute GI bleed component of acute blood loss anemia. Possible underlying peptic ulcer disease, bleeding AVM. Current Visit: Yes Status: Acute Code(s): K92.2 - GASTROINTESTINAL HEMORRHAGE, UNSPECIFIED SNOMED Code(s): 95591364 (2) Chronic anemia Current Visit: Yes Status: Acute Code(s): D64.9 - ANEMIA, UNSPECIFIED SNOMED Code(s): 701062786 (3) End stage renal disease on dialysis Current Visit: Yes Status: Acute Code(s): N18.6 - END STAGE RENAL DISEASE; Z99.2 - DEPENDENCE ON RENAL DIALYSIS SNOMED Code(s): 731215496 (4) Melena Current Visit: Yes Status: Acute Code(s): K92.1 - MELENA SNOMED Code(s): 5218191 Plan: 1. Protonix 40 mg daily. EGD evaluation tomorrow; dialysis today. Renal diet ; NPO after MN. CBC monitoring. The welt butter hand has discussed the risks, benefits and alternative therapies for the above-mentioned procedure and for both sedation/analgesia as well as necessary blood product administration, if indicated, as they pertain to this patient. The patient has indicated understanding and acceptance of the risks and procedures discussed. Thank you for this kind referral and the opportunity to participate in the care of your patient. This consultation was discussed with Dr. Hernandez. The impression and plan of care have been directed as dictated.
[2018-03-08] MEDS: INSULIN ASPART 100 UNIT/ML 1 ML 10 ML VIAL SQ SCH ×4 (08:39→21:40)
[2018-03-08] MEDS: CARVEDILOL 12.5 MG TAB PO SCH ×2 (08:40→17:50)
[2018-03-08] MEDS: PANTOPRAZOLE 40 MG/10 ML VIAL IV SCH ×2 (08:40→21:40)
[2018-03-08] MEDS: NIFEdipine XL 90 MG TAB.ER.24 PO SCH (08:40)
--- NOTE | 2018-03-08 09:09 | P.NPCON ---
History of Present Illness - Reason for Consult end stage renal disease - History of Present Illness Reason for consultation: End-stage renal disease History of present illness: Patient is a 82-year-old male seen in consultation for end-stage renal disease. He is maintained on hemodialysis on a Monday schedule via a permacath. Last hemodialysis was on Monday. Patient states yesterday morning he passed out while he was in the bathroom. Patient states he had one episode of black colored stool. Hemoglobin 9.6 today. EMS was called by the caregiver. Patient states he was only down for a few seconds. Currently he is awake and alert. No vomiting or diarrhea. No fever or chills. Denies chest pain or shortness of breath. No edema. Hemodynamically stable. 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 He has completed 4 doses of rituximab and plasmapheresis as well. Vital signs are stable. General: The patient appeared well nourished and normally developed. HEENT: Head exam is unremarkable. Neck is without jugular venous distension. LUNGS: Lungs are clear to auscultation and percussion. Breath sounds decreased. HEART: Rate and Rhythm are regular. First and second heart sounds normal. No murmurs, rubs or gallops. ABDOMEN: Abdominal exam reveals normal bowel sounds. Non-tender and non- distended. No evidence of peritonitis. EXTREMITITES: No clubbing, cyanosis, or edema. 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 ESRD with hemodialysis, current wound on R heel, prostrate cancer with surgery, iron anemia, benign colon polyps, diverticular disease, hypothyroid, aortic stenosis with valve replacement.rt heel wound-goes to [facility] on mon-pt stated dsng changed last 03-07-18 History of Any Multi-Drug Resistant Organisms: None Reported Past Surgical History: Cardiac Valve Replacement, Heart Catheterization, Hernia Repair, Joint Replacement, Prostate Surgery, Tonsillectomy Additional Past Surgical History / Comment(s): R hemodialysis catheter, 2014 aortic valve replaced, prostatectomy, colonoscopy with benign polypectomy, bilateral cataract removals, L eye retinal surgery, total R knee replacement. Past Anesthesia/Blood Transfusion Reactions: No Reported Reaction Smoking Status: Former smoker - Past Family History Father Family Medical History: No Reported History Additional Family Medical History / Comment(s): age 92.5 years old- from old age Mother Family Medical History: Myocardial Infarction ([place]) Medications and Allergies Home Medications Medication Instructions Recorded Confirmed Type Levothyroxine Sodium [Synthroid] 25 mcg PO DAILY 05/05/14 03/07/18 History Simvastatin [Zocor] 20 mg PO HS 05/05/14 03/07/18 History Carvedilol [Coreg*] 12.5 mg PO BID 12/23/17 03/07/18 History NIFEdipine [NIFEdipine ER] 90 mg PO DAILY 12/23/17 03/07/18 History Insulin Glargine [Lantus] 10 unit SQ HS #1 vial 02/19/18 03/07/18 Rx Allergies Allergy/AdvReac Type Severity Reaction Status Date / Time No Known Allergies Allergy Verified 03/07/18 14:16 Physical Exam Vitals: Vital Signs Temp Pulse Pulse Pulse Resp BP BP 03/08/18 05:00 98.2 F 80 18 146/71 03/08/18 00:00 90 18 03/07/18 20:03 97.3 F L 89 18 156/70 03/07/18 18:55 86 18 144/73 03/07/18 17:44 81 18 146/80 03/07/18 17:00 85 18 142/72 03/07/18 15:57 75 18 148/94 03/07/18 14:33 72 18 136/77 03/07/18 13:37 97.7 F 73 18 132/72 Pulse Ox 03/08/18 05:00 98 03/08/18 00:00 03/07/18 20:03 99 03/07/18 18:55 99 03/07/18 17:44 100 03/07/18 17:00 100 03/07/18 15:57 100 03/07/18 14:33 100 03/07/18 13:37 100 Intake and Output 03/07/18 03/08/18 03/08/18 22:59 06:59 14:59 Intake Total 50 160 Output Total 210 610 Balance -160 -450 Intake: Amount of Fluid Infused ( 50 ml) Intake, IV Titration 160 Amount Sodium Chloride 0.9% 1, 160 000 ml @ 20 mls/hr IV . Q24H [facility] Rx#:[id number] Output: Urine 210 610 Other: Voiding Method Urinal # Bowel Movements 1 Results - Lab Results Most recent lab results Calcium 8.1 mg/dL (8.4-10.2) L 03/07/18 13:58 Magnesium 1.8 mg/dL (1.6-2.3) 03/07/18 13:58 03/07/18 20:00 03/07/18 13:58 Assessment and Plan Plan: Assessment: 1. End-stage renal disease maintained on hemodialysis on a Monday schedule via permacath. 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 He is currently on prednisone 40 mg daily. 2. Anemia of chronic kidney disease. Also concern for GI bleed as he had melanotic stool. GI following. Potential endoscopy tomorrow. Hemoglobin 9.6 today. 3. Hypertension with chronic kidney disease. Controlled. 4. Diabetes mellitus. 5. Syncopal episode. Likely vasovagal. Plan: Hemodialysis today. Add Aranesp. Check iron studies. Check phosphorus level. Resume prednisone but I will decrease the dose to 30 mg daily. This will be further tapered outpatient. Thank you for the consultation. I will continue to follow the patient with you during his hospital stay.
[2018-03-08] MEDS ORDERED: DARBEPOETIN ALFA 40 MCG/0.4 ML SYRINGE SQ SCH (09:15)
[2018-03-08] MEDS: predniSONE 10 MG TAB PO SCH (09:30)
[2018-03-08 09:35] LABS: Anisocytosis Slight; Basophils % (A) 0 %; Eosinophils # (A) 0.1 k/uL (0-0.7); Eosinophils % (A) 1 %; HCT 27.6 % (39.0-53.0); HGB 8.6 gm/dL (13.0-17.5); Hypochromasia Slight; Lymphocytes # (A) 1.2 k/uL (1.0-4.8); Lymphocytes % (A) 15 %; MCH 28.3 pg (25.0-35.0); MCV 91.2 fL (80.0-100.0); Monocytes # (A) 0.7 k/uL (0-1.0); Monocytes % (A) 9 %; Neutrophils % (A) 74 %; Platelet Count 260 k/uL (150-450); RBC 3.03 m/uL (4.30-5.90); RDW 16.7 % (11.5-15.5); WBC 8.1 k/uL (3.8-10.6)
[2018-03-08 11:26] LABS: Glucose,Whole Blood 273 mg/dL (75-99)
--- NOTE | 2018-03-08 11:47 | P.HPIM ---
History of Present Illness H&P Date: 03/08/18 This is an 82-year-old male patient well known to our services. Patient presents to the emergency room with complaints of near syncopal event while patient was trying to have a bowel movement. Per EMS report patient was noted to have a very dark looking stool. And patient did lose consciousness for approximately 30 seconds of being assisted by EMS patient's blood sugar was also noted to be high at 515. 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 for plasmapheresis but had no improvement is now requiring hemodialysis Monday. Additional medical history includes wound to right heel which she follows with 10:00 and wound care center, prostate cancer surgery , cardiac valve replacement, heart cath and hypothyroidism. Head CT completed in emergency room showing atrophy with periventricular white matter ischemic changes. Chest x-ray completed showing cardiomegaly and interstitial changes, possible mild pulmonary vascular congestion. Overall appearance is improved from 02/17/2018. EKG completed showing sinus rhythm with premature supraventricular complexes. Hemoglobin 9.6 upon arrival. GI and nephrology services have been consulted. At this time patient denies chest pain or shortness breath. Patient denies nausea vomiting or diarrhea. Denies any urinary burning or frequency. 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 ESRD with hemodialysis, current wound on R heel, prostrate cancer with surgery, iron anemia, benign colon polyps, diverticular disease, hypothyroid, aortic stenosis with valve replacement.rt heel wound-goes to [facility] on mon-pt stated dsng changed last 03-07-18 History of Any Multi-Drug Resistant Organisms: None Reported Past Surgical History: Cardiac Valve Replacement, Heart Catheterization, Hernia Repair, Joint Replacement, Prostate Surgery, Tonsillectomy Additional Past Surgical History / Comment(s): R hemodialysis catheter, 2014 aortic valve replaced, prostatectomy, colonoscopy with benign polypectomy, bilateral cataract removals, L eye retinal surgery, total R knee replacement. Past Anesthesia/Blood Transfusion Reactions: No Reported Reaction Smoking Status: Former smoker - Past Family History Father Family Medical History: No Reported History Additional Family Medical History / Comment(s): age 92.5 years old- from old age Mother Family Medical History: Myocardial Infarction (MO) Medications and Allergies Home Medications Medication Instructions Recorded Confirmed Type Levothyroxine Sodium [Synthroid] 25 mcg PO DAILY 05/05/14 03/07/18 History Simvastatin [Zocor] 20 mg PO HS 05/05/14 03/07/18 History Carvedilol [Coreg*] 12.5 mg PO BID 12/23/17 03/07/18 History NIFEdipine [NIFEdipine ER] 90 mg PO DAILY 12/23/17 03/07/18 History Insulin Glargine [Lantus] 10 unit SQ HS #1 vial 02/19/18 03/07/18 Rx Allergies Allergy/AdvReac Type Severity Reaction Status Date / Time No Known Allergies Allergy Verified 03/07/18 14:16 Physical Exam Vitals: Vital Signs Temp Pulse Pulse Pulse Resp BP BP 03/08/18 05:00 98.2 F 80 18 146/71 03/08/18 00:00 90 18 03/07/18 20:03 97.3 F L 89 18 156/70 03/07/18 18:55 86 18 144/73 03/07/18 17:44 81 18 146/80 03/07/18 17:00 85 18 142/72 03/07/18 15:57 75 18 148/94 03/07/18 14:33 72 18 136/77 03/07/18 13:37 97.7 F 73 18 132/72 Pulse Ox 03/08/18 05:00 98 03/08/18 00:00 03/07/18 20:03 99 03/07/18 18:55 99 03/07/18 17:44 100 03/07/18 17:00 100 03/07/18 15:57 100 03/07/18 14:33 100 03/07/18 13:37 100 Intake and Output 03/07/18 03/08/18 03/08/18 22:59 06:59 14:59 Intake Total 50 160 Output Total 210 610 Balance -160 -450 Intake: Amount of Fluid Infused ( 50 ml) Intake, IV Titration 160 Amount Sodium Chloride 0.9% 1, 160 000 ml @ 20 mls/hr IV . Q24H [facility] Rx#:[id number] Output: Urine 210 610 Other: Voiding Method Urinal # Bowel Movements 1 Head normocephalic Neck supple Lungs clear to auscultation bilaterally no wheezing or crackles Heart regular rate and rhythm S1-S2, no rub or gallop Abdomen is soft nontender nondistended positive bowel sounds no hepatosplenomegaly Extremities no edema. Right heel ulcer clean dry and intact Neuro alert and orientated to 3 Results CBC & Chem 7: 03/08/18 08:27 03/07/18 13:58 Labs: Abnormal Lab Results - Last 24 Hours (Table) 03/07/18 03/07/18 03/07/18 Range/Units 13:39 13:58 13:58 WBC (3.8-10.6) k/uL RBC (4.30-5.90) m/uL Hgb (13.0-17.5) gm/dL Hct (39.0-53.0) % MCHC (31.0-37.0) g/dL RDW (11.5-15.5) % Neutrophils # (1.3-7.7) k/uL Lymphocytes # (1.0-4.8) k/uL APTT (22.0-30.0) sec Sodium 134 L (137-145) mmol/L BUN 75 H (9-20) mg/dL Creatinine 3.89 H (0.66-1.25) mg/dL Glucose 429 H (74-99) mg/dL POC Glucose (mg/dL) 424 H (75-99) mg/dL Calcium 8.1 L (8.4-10.2) mg/dL Total Creatine Kinase <20 L (55-170) U/L Total Protein 5.2 L (6.3-8.2) g/dL Albumin 3.2 L (3.5-5.0) g/dL Urine Protein (Negative) Urine Glucose (UA) (Negative) Urine Blood (Negative) Urine RBC (0-5) /hpf Amorphous Sediment (None) /hpf 03/07/18 03/07/1819 Range/Units 13:58 13:58 14:50 WBC (3.8-10.6) k/uL RBC 3.51 L (4.30-5.90) m/uL Hgb 10.3 L (13.0-17.5) gm/dL Hct 32.3 L (39.0-53.0) % MCHC (31.0-37.0) g/dL RDW 16.8 H (11.5-15.5) % Neutrophils # 8.5 H (1.3-7.7) k/uL Lymphocytes # 0.4 L (1.0-4.8) k/uL APTT 17.8 L (22.0-30.0) sec Sodium (137-145) mmol/L BUN (9-20) mg/dL Creatinine (0.66-1.25) mg/dL Glucose (74-99) mg/dL POC Glucose (mg/dL) (75-99) mg/dL Calcium (8.4-10.2) mg/dL Total Creatine Kinase (55-170) U/L Total Protein (6.3-8.2) g/dL Albumin (3.5-5.0) g/dL Urine Protein 2+ H (Negative) Urine Glucose (UA) 4+ H (Negative) Urine Blood Moderate H (Negative) Urine RBC 13 H (0-5) /hpf Amorphous Sediment Rare H (None) /hpf 03/07/18 03/07/18 03/07/18 Range/Units 15:55 18:17 20:00 WBC (3.8-10.6) k/uL RBC (4.30-5.90) m/uL Hgb (13.0-17.5) gm/dL Hct (39.0-53.0) % MCHC (31.0-37.0) g/dL RDW (11.5-15.5) % Neutrophils # (1.3-7.7) k/uL Lymphocytes # (1.0-4.8) k/uL APTT (22.0-30.0) sec Sodium (137-145) mmol/L BUN (9-20) mg/dL Creatinine (0.66-1.25) mg/dL Glucose (74-99) mg/dL POC Glucose (mg/dL) 435 H 363 H (75-99) mg/dL Calcium (8.4-10.2) mg/dL Total Creatine Kinase <20 L (55-170) U/L Total Protein (6.3-8.2) g/dL Albumin (3.5-5.0) g/dL Urine Protein (Negative) Urine Glucose (UA) (Negative) Urine Blood (Negative) Urine RBC (0-5) /hpf Amorphous Sediment (None) /hpf 03/07/18 03/07/18 03/08/18 Range/Units 20:00 20:33 02:08 WBC 10.7 H (3.8-10.6) k/uL RBC 3.42 L (4.30-5.90) m/uL Hgb 9.6 L (13.0-17.5) gm/dL Hct 31.6 L (39.0-53.0) % MCHC 30.4 L (31.0-37.0) g/dL RDW 16.6 H (11.5-15.5) % Neutrophils # 9.5 H (1.3-7.7) k/uL Lymphocytes # 0.4 L (1.0-4.8) k/uL APTT (22.0-30.0) sec Sodium (137-145) mmol/L BUN (9-20) mg/dL Creatinine (0.66-1.25) mg/dL Glucose (74-99) mg/dL POC Glucose (mg/dL) 351 H (75-99) mg/dL Calcium (8.4-10.2) mg/dL Total Creatine Kinase <20 L (55-170) U/L Total Protein (6.3-8.2) g/dL Albumin (3.5-5.0) g/dL Urine Protein (Negative) Urine Glucose (UA) (Negative) Urine Blood (Negative) Urine RBC (0-5) /hpf Amorphous Sediment (None) /hpf 03/08/18 03/08/18 03/08/18 Range/Units 07:02 08:27 11:25 WBC (3.8-10.6) k/uL RBC 3.03 L (4.30-5.90) m/uL Hgb 8.6 L (13.0-17.5) gm/dL Hct 27.6 L (39.0-53.0) % MCHC (31.0-37.0) g/dL RDW 16.7 H (11.5-15.5) % Neutrophils # (1.3-7.7) k/uL Lymphocytes # (1.0-4.8) k/uL APTT (22.0-30.0) sec Sodium (137-145) mmol/L BUN (9-20) mg/dL Creatinine (0.66-1.25) mg/dL Glucose (74-99) mg/dL POC Glucose (mg/dL) 133 H 273 H (75-99) mg/dL Calcium (8.4-10.2) mg/dL Total Creatine Kinase (55-170) U/L Total Protein (6.3-8.2) g/dL Albumin (3.5-5.0) g/dL Urine Protein (Negative) Urine Glucose (UA) (Negative) Urine Blood (Negative) Urine RBC (0-5) /hpf Amorphous Sediment (None) /hpf Thrombosis Risk Factor Assmnt - Choose All That Apply Any of the Below Risk Factors Present?: Yes Each Factor Represents 1 point: Acute MO, Heart failure (<1month), Obesity (BMI >25) Other Risk Factors: Yes Each Risk Factor Represents 2 Points: Patient confined to bed Other congenital or acquired thrombophilia - If yes, enter type in comment: No Thrombosis Risk Factor Assessment Total Risk Factor Score: 5 Thrombosis Risk Factor Assessment Level: High Risk Assessment and Plan Assessment: 1. Syncopal episode. Likely vasovagal. Head CT completed showing atrophy with periventricular white matter ischemic changes. 2. Anemia of chronic disease with possible concern for GI bleed due to melanotic stool and positive occult stool. Hemoglobin 8.6. GI services are following. Plans for EGD tomorrow 3. End-stage renal disease. Maintained on hemodialysis Monday and Monday. 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 Patient has completed 4 doses of rituximab and plasmapheresis. Patient maintained on prednisone daily per nephrology 4. Essential hypertension 5. Diabetes mellitus with hyperglycemia. Sliding scale insulin coverage has been ordered. A1c 6.0 6. History of hypothyroidism. Continue Synthroid 7. History of hyperlipidemia DVT prophylaxis SCDs. GI prophylaxis Protonix Time with Patient: Greater than 30 (Greater than 60% of the total time spent in counseling and coordination of care. I performed an examination of the patient and discussed their management with the Nurse Practitioner. I have reviewed the Nurse Practitioner's notes and agree with the documented findings and plan of care)
--- NOTE | 2018-03-08 14:59 | US ---
EXAMINATION TYPE: US carotid duplex BILAT DATE OF EXAM: 03/08/2018 COMPARISON: US CLINICAL HISTORY: syncope. Syncope EXAM MEASUREMENTS: RIGHT: Peak Systolic Velocity (PSV) cm/sec ----- Right CCA: 82.3 ----- Right ICA: 116.1 ----- Right ECA: 160.1 ICA/CCA ratio: 1.4 RIGHT: End Diastole cm/sec ----- Right CCA: 7.6 ----- Right ICA: 20.8 ----- Right ECA: 0.0 LEFT: Peak Systolic Velocity (PSV) cm/sec ----- Left CCA: 71.3 ----- Left ICA: 86.6 ----- Left ECA: 102.1 ICA/CCA ratio: 1.2 LEFT: End Diastole cm/sec ----- Left CCA: 13.1 ----- Left ICA: 11.5 ----- Left ECA: 0.0 VERTEBRALS (direction of flow): Right Vertebral: Antegrade Left Vertebral: Antegrade Rhythm: Normal No significant velocity elevations IMPRESSION: 1. Atheromatous plaquing without significant flow-limiting stenosis. Criteria for Assigning % of Stenosis / Diameter reduction (Estimation based on the indirect measurements of the internal carotid artery velocities (ICA PSV). 1. Normal (no stenosis)=ICA PSV < 125 cm/s: ratio < 2.0: ICA EDV<40 cm/s. 2. Less than 50% stenosis=ICA PSV < 125 cm/s: ratio < 2.0: ICA EDV<40 cm/s. 3. 50 to 69% stenosis=ICA PSV of 125 to 230 cm/s: ration 2.0 ? 4.0: ICA EDV 40-100 cm/s. 4. Greater than 70% stenosis to near occlusion= ICA PSV > 230 cm/s: ratio > 4.0: ICA EDV > 100 cm/s. 5. Near occlusion= ICA PSV velocities may be low or undetectable: variable ratio and ICA EDV. 6. Total occlusion=unable to detect flow.
[2018-03-08 16:46] LABS: Iron Saturation 22.13 (15.00-50.00)
[2018-03-08 17:10] LABS: Glucose,Whole Blood 350 mg/dL (75-99)
[2018-03-08] MEDS: SODIUM CHLORIDE 0.9% 1,000 ML IV SCH (17:32)
[2018-03-08 20:43] LABS: Glucose,Whole Blood 296 mg/dL (75-99)
[2018-03-08] MEDS: ATORVASTATIN 10 MG TAB PO SCH (21:40)
[2018-03-08] MEDS: INSULIN DETEMIR 100 UNIT/ML 10 ML VIAL SQ SCH (21:41)
[2018-03-09] MEDS: LEVOTHYROXINE 25 MCG TAB PO SCH (06:06)
[2018-03-09 06:57] LABS: Glucose,Whole Blood 83 mg/dL (75-99)
--- NOTE | 2018-03-09 07:48 | P.PN ---
Subjective Patient is seen in follow-up for end-stage renal disease. He is maintained on hemodialysis on a Monday schedule. Tolerated hemodialysis well yesterday. Patient presented with a syncopal episode. He also had an episode of melena prior to admission. Currently resting in bed. No active complaints. Vital signs are stable. General: The patient appeared well nourished and normally developed. HEENT: Head exam is unremarkable. Neck is without jugular venous distension. LUNGS: Lungs are clear to auscultation and percussion. Breath sounds decreased. HEART: Rate and Rhythm are regular. First and second heart sounds normal. No murmurs, rubs or gallops. ABDOMEN: Abdominal exam reveals normal bowel sounds. Non-tender and non- distended. No evidence of peritonitis. EXTREMITITES: No clubbing, cyanosis, or edema. Objective - Vital Signs Vital signs: Vital Signs Temp 97.9 F 03/09/18 04:45 Pulse 68 03/09/18 04:45 Resp 16 03/09/18 04:45 BP 130/65 03/09/18 04:45 Pulse Ox 99 03/09/18 04:45 Intake & Output 03/08/18 03/09/18 03/09/18 18:59 06:59 18:59 Intake Total 1340 160 Output Total 400 200 Balance 940 -40 Weight 95.7 kg Intake: Intake, IV Titration 240 160 Amount Sodium Chloride 0.9% 1, 240 160 000 ml @ 20 mls/hr IV . Q24H [facility] Rx#:[id number] Oral 1100 Output: Urine 400 200 Other: Voiding Method Urinal Urinal # Voids 3 1 - Labs CBC & Chem 7: 03/08/18 08:27 03/07/18 13:58 Labs: Abnormal Lab Results - Last 24 Hours (Table) 03/08/18 03/08/18 03/08/18 Range/Units 08:27 08:27 11:25 RBC 3.03 L (4.30-5.90) m/uL Hgb 8.6 L (13.0-17.5) gm/dL Hct 27.6 L (39.0-53.0) % RDW 16.7 H (11.5-15.5) % POC Glucose (mg/dL) 273 H (75-99) mg/dL Iron 56 L (65-175) ug/dL Ferritin 1154.8 H (22.0-322.0) ng/mL 03/08/18 03/08/18 Range/Units 17:09 20:23 RBC (4.30-5.90) m/uL Hgb (13.0-17.5) gm/dL Hct (39.0-53.0) % RDW (11.5-15.5) % POC Glucose (mg/dL) 350 H 296 H (75-99) mg/dL Iron (65-175) ug/dL Ferritin (22.0-322.0) ng/mL Assessment and Plan Plan: Assessment: 1. End-stage renal disease maintained on hemodialysis on a Monday schedule via permacath. 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 He is currently on prednisone 30 mg daily. 2. Anemia of chronic kidney disease. Also concern for GI bleed as he had melanotic stool. GI following. Potential endoscopy today. Hemoglobin 8.6 as of yesterday. Maintained on Aranesp. 3. Hypertension with chronic kidney disease. Controlled. 4. Diabetes mellitus. 5. Syncopal episode. Likely vasovagal. No significant stenosis noted on carotid ultrasound. Plan: Hemodialysis tomorrow. Maintain prednisone 30 mg daily. This will be further tapered outpatient. Check phosphorus level.
[2018-03-09] MEDS: INSULIN ASPART 100 UNIT/ML 1 ML 10 ML VIAL SQ SCH ×4 (08:18→21:14)
[2018-03-09] MEDS: CARVEDILOL 12.5 MG TAB PO SCH ×2 (08:21→16:32)
[2018-03-09] MEDS: PANTOPRAZOLE 40 MG/10 ML VIAL IV SCH ×2 (08:21→21:16)
[2018-03-09] MEDS: NIFEdipine XL 90 MG TAB.ER.24 PO SCH (08:22)
--- NOTE | 2018-03-09 09:31 | P.PN ---
Subjective Progress Note Date: 03/09/18 This is an 82-year-old male patient well known to our services. Patient presents to the emergency room with complaints of near syncopal event while patient was trying to have a bowel movement. Per EMS report patient was noted to have a very dark looking stool. And patient did lose consciousness for approximately 30 seconds of being assisted by EMS patient's blood sugar was also noted to be high at 515. 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 Additional medical history includes wound to right heel which she follows with 10:00 and wound care center, prostate cancer surgery , cardiac valve replacement, heart cath and hypothyroidism. Head CT completed in emergency room showing atrophy with periventricular white matter ischemic changes. Chest x-ray completed showing cardiomegaly and interstitial changes, possible mild pulmonary vascular congestion. Overall appearance is improved from 02/17/2018. EKG completed showing sinus rhythm with premature supraventricular complexes. Hemoglobin 9.6 upon arrival. GI and nephrology services have been consulted. At this time patient denies chest pain or shortness breath. Patient denies nausea vomiting or diarrhea. Denies any urinary burning or frequency. On 03/09/2018 patient is currently resting comfortably in bed. Patient denies any complaints at this time. Patient to undergo EGD today. This time patient denies chest pain or shortness of breath. Patient denies nausea vomiting or diarrhea. Patient denies any urinary burning or frequency. Per nursing staff no signs of any active bleeding. Objective - Vital Signs Vital signs: Vital Signs Temp 97.9 F 03/09/18 04:45 Pulse 68 03/09/18 04:45 Resp 16 03/09/18 04:45 BP 130/65 03/09/18 04:45 Pulse Ox 99 03/09/18 07:48 Intake & Output 03/08/18 03/09/18 03/09/18 18:59 06:59 18:59 Intake Total 1340 160 Output Total 400 200 Balance 940 -40 Weight 95.7 kg Intake: Intake, IV Titration 240 160 Amount Sodium Chloride 0.9% 1, 240 160 000 ml @ 20 mls/hr IV . Q24H [facility] Rx#:[id number] Oral 1100 Output: Urine 400 200 Other: Voiding Method Urinal Urinal # Voids 3 1 - Exam Head normocephalic Neck supple Lungs clear to auscultation bilaterally no wheezing or crackles Heart regular rate and rhythm S1-S2, no rub or gallop Abdomen is soft nontender nondistended positive bowel sounds no hepatosplenomegaly Extremities no edema. Right heel ulcer clean dry and intact Neuro alert and orientated to 3 - Labs CBC & Chem 7: 03/08/18 08:27 03/07/18 13:58 Labs: Abnormal Lab Results - Last 24 Hours (Table) 03/08/18 03/08/18 03/08/18 Range/Units 08:27 08:27 11:25 RBC 3.03 L (4.30-5.90) m/uL Hgb 8.6 L (13.0-17.5) gm/dL Hct 27.6 L (39.0-53.0) % RDW 16.7 H (11.5-15.5) % POC Glucose (mg/dL) 273 H (75-99) mg/dL Iron 56 L (65-175) ug/dL Ferritin 1154.8 H (22.0-322.0) ng/mL 03/08/18 03/08/18 Range/Units 17:09 20:23 RBC (4.30-5.90) m/uL Hgb (13.0-17.5) gm/dL Hct (39.0-53.0) % RDW (11.5-15.5) % POC Glucose (mg/dL) 350 H 296 H (75-99) mg/dL Iron (65-175) ug/dL Ferritin (22.0-322.0) ng/mL Assessment and Plan Assessment: 1. Syncopal episode. Likely vasovagal. Head CT completed showing atrophy with periventricular white matter ischemic changes. Carotid Doppler study completed showing atheromatous plaquing without significant flow-limiting stenosis. 2-D echo completed in November 2017 showing an EF of 55-60%. 2. Anemia of chronic disease with possible concern for GI bleed due to melanotic stool and positive occult stool. Hemoglobin 8.6. GI services are following. Plans for EGD tomorrow 3. End-stage renal disease. Maintained on hemodialysis Monday and Monday. 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 Patient has completed 4 doses of rituximab and plasmapheresis. Patient maintained on prednisone daily per nephrology 4. Essential hypertension 5. Diabetes mellitus with hyperglycemia. Sliding scale insulin coverage has been ordered. A1c 6.0 6. History of hypothyroidism. Continue Synthroid. TSH recently checked on 07/2018, TSH level 1.990 7. History of hyperlipidemia DVT prophylaxis SCDs. GI prophylaxis Protonix Social work consulted for discharge planning I performed an examination of the patient and discussed their management with the Nurse Practitioner. I have reviewed the Nurse Practitioner's notes and agree with the documented findings and plan of care
[2018-03-09 09:53] LABS: Glucose,Whole Blood 90 mg/dL (75-99)
[2018-03-09 10:00] LABS: Anisocytosis Slight; Basophils % (A) 0 %; Eosinophils # (A) 0.1 k/uL (0-0.7); Eosinophils % (A) 1 %; HCT 27.8 % (39.0-53.0); HGB 8.5 gm/dL (13.0-17.5); Hypochromasia Moderate; Lymphocytes # (A) 1.2 k/uL (1.0-4.8); Lymphocytes % (A) 14 %; MCH 28.1 pg (25.0-35.0); MCHC 30.5 g/dL (31.0-37.0); MCV 92.1 fL (80.0-100.0); Mean Platelet Volume 6.9; Monocytes # (A) 0.6 k/uL (0-1.0); Monocytes % (A) 7 %; Neutrophils # (A) 6.4 k/uL (1.3-7.7); Neutrophils % (A) 76 %; Platelet Count 260 k/uL (150-450); RBC 3.02 m/uL (4.30-5.90); RDW 16.4 % (11.5-15.5); WBC 8.5 k/uL (3.8-10.6)
[2018-03-09 10:16] LABS: Albumin 2.8 g/dL (3.5-5.0); Calcium 7.9 mg/dL (8.4-10.2); Phosphorus 4.2 mg/dL (2.5-4.5); Potassium 3.3 mmol/L (3.5-5.1); Total Bilirubin 0.5 mg/dL (0.2-1.3); Total Protein 4.7 g/dL (6.3-8.2)
[2018-03-09] MEDS ORDERED: Potassium Replacement Protocol 1 EACH MISC MISCELLANE PRN ×2 (10:21→10:22)
[2018-03-09] MEDS: predniSONE 10 MG TAB PO SCH (11:03)
[2018-03-09] MEDS: POTASSIUM CHLORIDE 10 MEQ in WATER FOR INJECTION 1 100ML.BAG IVPB SCH ×4 (11:03→14:33)
[2018-03-09 12:08] LABS: Glucose,Whole Blood 97 mg/dL (75-99)
[2018-03-09] MEDS ORDERED: LIDOCAINE 1% INJ 10MG/ML (20 ML MDV) ONE (13:29)
[2018-03-09] MEDS ORDERED: PROPOFOL 10 MG/ML 20 ML VIAL IV ONE (13:29)
[2018-03-09] MEDS ORDERED: IV FLUID CONTINUATION 1,000 ML IV ONE (13:31)
--- NOTE | 2018-03-09 14:10 | P.PCN ---
Date of Procedure: 03/09/18 Description of Procedure: BRIEF HISTORY: 82-year-old gentleman admitted with a near syncopal episode in the bathroom with black colored bowel movements x 1 day. Only passed 1 black BM. Past medical history end-stage renal disease hemodialysis dependent T, TH, , hypertension, diabetes mellitus, heart failure, hyperlipidemia, prostate carcinoma, colonic diverticulosis, AVR/aortic stenosis. Admission hemoglobin 10.3. MCV 92. Platelet 280. Average hemoglobin ranges between 8-11. INR 1.0. BUN 75. Creatinine 3.8. FOBT positive. CT brain atrophy with periventricular white matter ischemic changes. Denies fever, chills, abdominal pain, hematemesis or hematochezia. No recent EGD/colonoscopy. No NSAIDS, ASA or ETOH.. PROCEDURE PERFORMED: Esophagogastroduodenoscopy with biopsy. PREOPERATIVE DIAGNOSIS: Melena, anemia of acute blood loss. ESTIMATED BLOOD LOSS: Minimal. IV sedation per anesthesia. PROCEDURE: After informed consent was obtained, the patient was brought into the endoscopy unit. IV sedation was administered by Anesthesia under continuous monitoring. Initially the Olympus GIF-190 video endoscope was inserted into the mouth. Esophagus intubated without any difficulty. It was gradually advanced into the stomach and duodenum and carefully examined. The bulb and the second part of the duodenum appeared grossly normal with some mild erythema suggestive of duodenitis which was biopsied. The scope at this time was withdrawn to the stomach, adequately insufflated with air, and upon careful examination, mucosa of the antrum, body, cardia and the fundus appeared normal except for some mild scattered erythema in the antrum and body which was biopsied. The scope was then withdrawn into the esophagus. The GE junction was located at 36 cm from the incisors. Medium sized hiatal hernia was noted. The patient had 2 areas of ulceration in the distal esophagus without any active bleeding or high risk stigmata of rebleeding, which were biopsied. The patient tolerated the procedure well. IMPRESSION: 1. Mild gastritis of the antrum and body, biopsied. 2. Mild duodenitis, biopsied. 3. Distal esophagus ulcers without any active bleeding or high risk stigmata for rebleeding, biopsied. RECOMMENDATIONS: The findings of this examination were discussed with the patient. Okay for GI soft diet. Patient should remain on twice daily Protonix therapy. Await pathology from biopsies. Continue to monitor hemoglobin and hematocrit and transfuse as needed.
[2018-03-09] MEDS: SODIUM CHLORIDE 0.9% 1,000 ML IV SCH (15:30)
[2018-03-09 17:19] LABS: Glucose,Whole Blood 147 mg/dL (75-99)
[2018-03-09 20:16] LABS: Glucose,Whole Blood 192 mg/dL (75-99)
[2018-03-09] MEDS: ATORVASTATIN 10 MG TAB PO SCH (21:14)
[2018-03-09] MEDS: INSULIN DETEMIR 100 UNIT/ML 10 ML VIAL SQ SCH (21:15)
[2018-03-10] MEDS: LEVOTHYROXINE 25 MCG TAB PO SCH (06:17)
[2018-03-10 07:30] LABS: Glucose,Whole Blood 85 mg/dL (75-99)
[2018-03-10] MEDS: CARVEDILOL 12.5 MG TAB PO SCH ×2 (07:44→17:30)
[2018-03-10] MEDS: predniSONE 10 MG TAB PO SCH (07:44)
[2018-03-10] MEDS: PANTOPRAZOLE 40 MG/10 ML VIAL IV SCH (07:45)
[2018-03-10] MEDS: INSULIN ASPART 100 UNIT/ML 1 ML 10 ML VIAL SQ SCH ×4 (07:45→20:55)
[2018-03-10 07:48] LABS: Anisocytosis Slight; Basophils % (A) 0 %; Eosinophils # (A) 0.1 k/uL (0-0.7); Eosinophils % (A) 2 %; HCT 25.5 % (39.0-53.0); HGB 8.4 gm/dL (13.0-17.5); Hypochromasia Slight; Lymphocytes # (A) 0.8 k/uL (1.0-4.8); Lymphocytes % (A) 12 %; MCH 29.8 pg (25.0-35.0); MCHC 32.9 g/dL (31.0-37.0); MCV 90.8 fL (80.0-100.0); Mean Platelet Volume 6.5; Monocytes # (A) 0.5 k/uL (0-1.0); Monocytes % (A) 8 %; Neutrophils # (A) 5.2 k/uL (1.3-7.7); Neutrophils % (A) 77 %; Platelet Count 230 k/uL (150-450); RBC 2.81 m/uL (4.30-5.90); RDW 16.4 % (11.5-15.5); WBC 6.7 k/uL (3.8-10.6)
[2018-03-10 08:03] LABS: Albumin 2.5 g/dL (3.5-5.0); Calcium 7.5 mg/dL (8.4-10.2); Potassium 3.8 mmol/L (3.5-5.1); Total Bilirubin 0.5 mg/dL (0.2-1.3); Total Protein 4.4 g/dL (6.3-8.2)
[2018-03-10 11:46] LABS: Glucose,Whole Blood 147 mg/dL (75-99)
--- NOTE | 2018-03-10 14:34 | P.PN ---
Subjective Progress Note Date: 03/10/18 Seen and examined for the follow-up of ESRD. Had dialysis treatment today. Tolerated well Objective - Vital Signs Vital signs: Vital Signs Temp 97.9 F 03/10/18 12:26 Pulse 64 03/10/18 12:26 Resp 16 03/10/18 12:26 BP 142/77 03/10/18 12:26 Pulse Ox 98 03/10/18 12:26 Intake & Output 03/09/18 03/10/18 03/10/18 18:59 06:59 18:59 Intake Total 650 240 240 Output Total 200 Balance 650 40 240 Weight 98.9 kg Intake: IV 100 Intake, IV Titration 550 240 Amount Potassium Chloride 10 meq 200 In Water For Injection 1 100ml.bag @ 100 mls/hr IVPB Q1HR [facility] Rx#: [id number] Sodium Chloride 0.9% 1, 350 240 000 ml @ 20 mls/hr IV . Q24H [facility] Rx#:[id number] Oral 0 240 Output: Urine 200 Other: Voiding Method Urinal Urinal Diaper Diaper # Voids 2 - Exam No acute distress Right jugular permacath S1-S2 heard Diminished breath sounds Edema - Labs CBC & Chem 7: 03/10/18 07:11 03/10/18 07:11 Labs: Abnormal Lab Results - Last 24 Hours (Table) 03/09/18 03/09/18 03/10/18 Range/Units 17:12 20:15 07:11 RBC (4.30-5.90) m/uL Hgb (13.0-17.5) gm/dL Hct (39.0-53.0) % RDW (11.5-15.5) % Lymphocytes # (1.0-4.8) k/uL BUN 44 H (9-20) mg/dL Creatinine 4.27 H (0.66-1.25) mg/dL Glucose 72 L (74-99) mg/dL POC Glucose (mg/dL) 147 H 192 H (75-99) mg/dL Calcium 7.5 L (8.4-10.2) mg/dL AST 9 L (17-59) U/L Alkaline Phosphatase 33 L (38-126) U/L Total Protein 4.4 L (6.3-8.2) g/dL Albumin 2.5 L (3.5-5.0) g/dL 03/10/18 03/10/18 Range/Units 07:11 11:45 RBC 2.81 L (4.30-5.90) m/uL Hgb 8.4 L (13.0-17.5) gm/dL Hct 25.5 L (39.0-53.0) % RDW 16.4 H (11.5-15.5) % Lymphocytes # 0.8 L (1.0-4.8) k/uL BUN (9-20) mg/dL Creatinine (0.66-1.25) mg/dL Glucose (74-99) mg/dL POC Glucose (mg/dL) 147 H (75-99) mg/dL Calcium (8.4-10.2) mg/dL AST (17-59) U/L Alkaline Phosphatase (38-126) U/L Total Protein (6.3-8.2) g/dL Albumin (3.5-5.0) g/dL Assessment and Plan Assessment: #1 syncope vasovagal #2 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 #3 hypertension with ESRD #4 anemia with ESRD #5 metabolic bone disease with ESRD Plan: #1 hemodialysis tolerated today as per his outpatient schedule. #2 ESRD medications
--- NOTE | 2018-03-10 14:35 | P.PN ---
Subjective Progress Note Date: 03/10/18 This is an 82-year-old male patient well known to our services. Patient presents to the emergency room with complaints of near syncopal event while patient was trying to have a bowel movement. Per EMS report patient was noted to have a very dark looking stool. And patient did lose consciousness for approximately 30 seconds of being assisted by EMS patient's blood sugar was also noted to be high at 515. 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 Additional medical history includes wound to right heel which she follows with 10:00 and wound care center, prostate cancer surgery , cardiac valve replacement, heart cath and hypothyroidism. Head CT completed in emergency room showing atrophy with periventricular white matter ischemic changes. Chest x-ray completed showing cardiomegaly and interstitial changes, possible mild pulmonary vascular congestion. Overall appearance is improved from 02/17/2018. EKG completed showing sinus rhythm with premature supraventricular complexes. Hemoglobin 9.6 upon arrival. GI and nephrology services have been consulted. At this time patient denies chest pain or shortness breath. Patient denies nausea vomiting or diarrhea. Denies any urinary burning or frequency. On 03/09/2018 patient is currently resting comfortably in bed. Patient denies any complaints at this time. Patient to undergo EGD today. This time patient denies chest pain or shortness of breath. Patient denies nausea vomiting or diarrhea. Patient denies any urinary burning or frequency. Per nursing staff no signs of any active bleeding. On 03/10/2018 patient is currently resting in bed. Patient is currently getting dialysis. Patient underwent EGD yesterday. Discussed case with patient 's DPOA. And case management. At this time physical therapy recommending rehab due to increased weakness. Per patient's DPOA patient has been increasingly weak at home and having trouble regulating his meds. Discussed with case management working on rehab discharge on Monday to . This time patient denies chest pain or shortness of breath. Patient denies nausea vomiting or diarrhea. Patient denies any urinary burning or frequency Objective - Vital Signs Vital signs: Vital Signs Temp 97.9 F 03/10/18 12:26 Pulse 64 03/10/18 12:26 Resp 16 03/10/18 12:26 BP 142/77 03/10/18 12:26 Pulse Ox 98 03/10/18 12:26 Intake & Output 03/09/18 03/10/18 03/10/18 18:59 06:59 18:59 Intake Total 650 240 240 Output Total 200 Balance 650 40 240 Weight 98.9 kg Intake: IV 100 Intake, IV Titration 550 240 Amount Potassium Chloride 10 meq 200 In Water For Injection 1 100ml.bag @ 100 mls/hr IVPB Q1HR [facility] Rx#: [id number] Sodium Chloride 0.9% 1, 350 240 000 ml @ 20 mls/hr IV . Q24H [facility] Rx#:[id number] Oral 0 240 Output: Urine 200 Other: Voiding Method Urinal Urinal Diaper Diaper # Voids 2 - Exam Head normocephalic Neck supple Lungs clear to auscultation bilaterally no wheezing or crackles Heart regular rate and rhythm S1-S2, no rub or gallop Abdomen is soft nontender nondistended positive bowel sounds no hepatosplenomegaly Extremities no edema. Right heel ulcer clean dry and intact Neuro alert and orientated to 3 - Labs CBC & Chem 7: 03/10/18 07:11 03/10/18 07:11 Labs: Abnormal Lab Results - Last 24 Hours (Table) 03/09/18 03/09/18 03/10/18 Range/Units 17:12 20:15 07:11 RBC (4.30-5.90) m/uL Hgb (13.0-17.5) gm/dL Hct (39.0-53.0) % RDW (11.5-15.5) % Lymphocytes # (1.0-4.8) k/uL BUN 44 H (9-20) mg/dL Creatinine 4.27 H (0.66-1.25) mg/dL Glucose 72 L (74-99) mg/dL POC Glucose (mg/dL) 147 H 192 H (75-99) mg/dL Calcium 7.5 L (8.4-10.2) mg/dL AST 9 L (17-59) U/L Alkaline Phosphatase 33 L (38-126) U/L Total Protein 4.4 L (6.3-8.2) g/dL Albumin 2.5 L (3.5-5.0) g/dL 03/10/18 03/10/18 Range/Units 07:11 11:45 RBC 2.81 L (4.30-5.90) m/uL Hgb 8.4 L (13.0-17.5) gm/dL Hct 25.5 L (39.0-53.0) % RDW 16.4 H (11.5-15.5) % Lymphocytes # 0.8 L (1.0-4.8) k/uL BUN (9-20) mg/dL Creatinine (0.66-1.25) mg/dL Glucose (74-99) mg/dL POC Glucose (mg/dL) 147 H (75-99) mg/dL Calcium (8.4-10.2) mg/dL AST (17-59) U/L Alkaline Phosphatase (38-126) U/L Total Protein (6.3-8.2) g/dL Albumin (3.5-5.0) g/dL Assessment and Plan Assessment: 1. Syncopal episode. Likely vasovagal. Head CT completed showing atrophy with periventricular white matter ischemic changes. Carotid Doppler study completed showing atheromatous plaquing without significant flow-limiting stenosis. 2-D echo completed in November 2017 showing an EF of 55-60%. 2. Anemia of chronic disease with possible concern for GI bleed due to melanotic stool and positive occult stool. Hemoglobin 8.6. GI services are following. EGD completed showing mild gastritis of antrum and body, biopsy. Mild duodenitis, biopsied and distal esophagus ulcers without any active bleeding or high risk stigmata for rebleeding biopsied. This time GI recommending Protonix twice daily and continue monitoring hemoglobin 3. End-stage renal disease. Maintained on hemodialysis Monday and Monday. 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 Patient has completed 4 doses of rituximab and plasmapheresis. Patient maintained on prednisone daily per nephrology 4. Essential hypertension 5. Diabetes mellitus with hyperglycemia. Sliding scale insulin coverage has been ordered. A1c 6.0 6. History of hypothyroidism. Continue Synthroid. TSH recently checked on 07/2018, TSH level 1.990 7. History of hyperlipidemia DVT prophylaxis SCDs. GI prophylaxis Protonix Social work consulted for discharge planning Physical therapy recommending rehab. DPOA first choice [place] I performed an examination of the patient and discussed their management with the Nurse Practitioner. I have reviewed the Nurse Practitioner's notes and agree with the documented findings and plan of care
[2018-03-10] MEDS: NIFEdipine XL 90 MG TAB.ER.24 PO SCH (14:40)
[2018-03-10] MEDS: SODIUM CHLORIDE 0.9% 1,000 ML IV SCH (16:14)
[2018-03-10 17:12] LABS: Glucose,Whole Blood 348 mg/dL (75-99)
--- NOTE | 2018-03-10 17:33 | P.PN ---
Subjective Progress Note Date: 03/10/18 Principal diagnosis: GI bleed, melena The patient is lying in bed, reporting that he is having no abdominal pain and is tolerating diet. No melena reported. No signs or symptoms of GI bleeding. Objective - Vital Signs Vital signs: Vital Signs Temp 97.9 F 03/10/18 12:26 Pulse 70 03/10/18 15:46 Resp 16 03/10/18 15:46 BP 142/77 03/10/18 12:26 Pulse Ox 98 03/10/18 12:26 Intake & Output 03/09/18 03/10/18 03/10/18 18:59 06:59 18:59 Intake Total 146 337 7543 Output Total 200 100 Balance 332 61 0802 Weight 98.9 kg Intake: IV 100 Intake, IV Titration 550 240 Amount Potassium Chloride 10 meq 200 In Water For Injection 1 100ml.bag @ 100 mls/hr IVPB Q1HR [facility] Rx#: [id number] Sodium Chloride 0.9% 1, 350 240 000 ml @ 20 mls/hr IV . Q24H [facility] Rx#:[id number] Oral 0 1200 Output: Urine 200 100 Other: Voiding Method Urinal Urinal Urinal Diaper Diaper Diaper # Voids 2 1 - Exam On physical examination, patient appears comfortable in no apparent distress. HEAD: Normocephalic, atraumatic. EYES: No scleral icterus. No conjunctival injection. MOUTH: No lesions, tongue midline. NECK: Trachea midline, no gross abnormalities. CHEST: Clear to auscultation with no wheezing or rhonchi appreciated. HEART: Regular rate and rhythm. ABDOMEN: Soft, obese. Bowel sounds are positive. No organomegaly. No guarding or rigidity. EXTREMITIES: No pedal edema. SKIN: No rashes, no jaundice. NEUROLOGIC: Alert and oriented x3. No focal deficits. - Labs CBC & Chem 7: 03/10/18 07:11 03/10/18 07:11 Labs: Abnormal Lab Results - Last 24 Hours (Table) 03/09/18 03/10/18 03/10/18 Range/Units 20:15 07:11 07:11 RBC 2.81 L (4.30-5.90) m/uL Hgb 8.4 L (13.0-17.5) gm/dL Hct 25.5 L (39.0-53.0) % RDW 16.4 H (11.5-15.5) % Lymphocytes # 0.8 L (1.0-4.8) k/uL BUN 44 H (9-20) mg/dL Creatinine 4.27 H (0.66-1.25) mg/dL Glucose 72 L (74-99) mg/dL POC Glucose (mg/dL) 192 H (75-99) mg/dL Calcium 7.5 L (8.4-10.2) mg/dL AST 9 L (17-59) U/L Alkaline Phosphatase 33 L (38-126) U/L Total Protein 4.4 L (6.3-8.2) g/dL Albumin 2.5 L (3.5-5.0) g/dL 03/10/18 03/10/18 Range/Units 11:45 17:11 RBC (4.30-5.90) m/uL Hgb (13.0-17.5) gm/dL Hct (39.0-53.0) % RDW (11.5-15.5) % Lymphocytes # (1.0-4.8) k/uL BUN (9-20) mg/dL Creatinine (0.66-1.25) mg/dL Glucose (74-99) mg/dL POC Glucose (mg/dL) 147 H 348 H (75-99) mg/dL Calcium (8.4-10.2) mg/dL AST (17-59) U/L Alkaline Phosphatase (38-126) U/L Total Protein (6.3-8.2) g/dL Albumin (3.5-5.0) g/dL Assessment and Plan (1) GI bleed Narrative/Plan: Patient presenting with melena and signs and symptoms of GI bleeding, found to have gastritis, duodenitis and nonbleeding esophageal ulcers on EGD which were biopsied. No further signs or symptoms of GI bleeding. Patient is tolerating his diet with no abdominal pain. Current Visit: Yes Status: Acute Code(s): K92.2 - GASTROINTESTINAL HEMORRHAGE, UNSPECIFIED SNOMED Code(s): 24301161 (2) Anemia Narrative/Plan: Multifactorial anemia, with combination of anemia of chronic disease in the setting of end-stage renal disease and anemia of acute blood loss likely due to upper GI bleed secondary to esophageal ulcers. No further signs or symptoms of GI bleeding. Hemoglobin is stable. Current Visit: Yes Status: Acute Code(s): D64.9 - ANEMIA, UNSPECIFIED SNOMED Code(s): 453428589 (3) Melena Narrative/Plan: Resolved. Current Visit: Yes Status: Acute Code(s): K92.1 - MELENA SNOMED Code(s): 0822105 Plan: Supportive care Okay for diet Continue to monitor hemoglobin and transfuse as needed Continue Protonix twice daily Await pathology from biopsies from EGD Thank you for allowing us to participate in the care of this patient, gastroenterology service will stand by, please call us back with any questions or concerns
[2018-03-10 20:45] LABS: Glucose,Whole Blood 311 mg/dL (75-99)
[2018-03-10] MEDS: ATORVASTATIN 10 MG TAB PO SCH (20:54)
[2018-03-10] MEDS: PANTOPRAZOLE 40 MG TABLET PO SCH (20:55)
[2018-03-10] MEDS: INSULIN DETEMIR 100 UNIT/ML 10 ML VIAL SQ SCH (20:56)
[2018-03-11] MEDS: LEVOTHYROXINE 25 MCG TAB PO SCH (06:29)
[2018-03-11 07:24] LABS: Glucose,Whole Blood 136 mg/dL (75-99)
[2018-03-11] MEDS: INSULIN ASPART 100 UNIT/ML 1 ML 10 ML VIAL SQ SCH ×4 (07:50→20:23)
[2018-03-11 07:52] LABS: Albumin 2.6 g/dL (3.5-5.0); Calcium 7.5 mg/dL (8.4-10.2); Potassium 3.9 mmol/L (3.5-5.1); Total Bilirubin 0.5 mg/dL (0.2-1.3); Total Protein 4.6 g/dL (6.3-8.2)
[2018-03-11] MEDS: CARVEDILOL 12.5 MG TAB PO SCH ×2 (07:52→17:51)
[2018-03-11] MEDS: NIFEdipine XL 90 MG TAB.ER.24 PO SCH (07:52)
[2018-03-11] MEDS: PANTOPRAZOLE 40 MG TABLET PO SCH ×2 (07:52→20:23)
[2018-03-11] MEDS: predniSONE 10 MG TAB PO SCH (07:52)
[2018-03-11 08:40] LABS: Anisocytosis Slight; Basophils % (A) 0 %; Eosinophils # (A) 0.1 k/uL (0-0.7); Eosinophils % (A) 1 %; HCT 28.3 % (39.0-53.0); HGB 8.9 gm/dL (13.0-17.5); Hypochromasia Moderate; Lymphocytes % (A) 13 %; MCH 29.1 pg (25.0-35.0); MCHC 31.4 g/dL (31.0-37.0); MCV 92.6 fL (80.0-100.0); Mean Platelet Volume 8.7; Monocytes # (A) 0.7 k/uL (0-1.0); Monocytes % (A) 8 %; Neutrophils # (A) 5.9 k/uL (1.3-7.7); Neutrophils % (A) 76 %; Platelet Count 187 k/uL (150-450); RBC 3.06 m/uL (4.30-5.90); RDW 16.2 % (11.5-15.5); WBC 7.8 k/uL (3.8-10.6)
[2018-03-11 11:14] LABS: Glucose,Whole Blood 174 mg/dL (75-99)
--- NOTE | 2018-03-11 12:11 | P.PN ---
Subjective Progress Note Date: 03/11/18 This is an 82-year-old male patient well known to our services. Patient presents to the emergency room with complaints of near syncopal event while patient was trying to have a bowel movement. Per EMS report patient was noted to have a very dark looking stool. And patient did lose consciousness for approximately 30 seconds of being assisted by EMS patient's blood sugar was also noted to be high at 515. 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 Additional medical history includes wound to right heel which she follows with 10:00 and wound care center, prostate cancer surgery , cardiac valve replacement, heart cath and hypothyroidism. Head CT completed in emergency room showing atrophy with periventricular white matter ischemic changes. Chest x-ray completed showing cardiomegaly and interstitial changes, possible mild pulmonary vascular congestion. Overall appearance is improved from 02/17/2018. EKG completed showing sinus rhythm with premature supraventricular complexes. Hemoglobin 9.6 upon arrival. GI and nephrology services have been consulted. At this time patient denies chest pain or shortness breath. Patient denies nausea vomiting or diarrhea. Denies any urinary burning or frequency. On 03/09/2018 patient is currently resting comfortably in bed. Patient denies any complaints at this time. Patient to undergo EGD today. This time patient denies chest pain or shortness of breath. Patient denies nausea vomiting or diarrhea. Patient denies any urinary burning or frequency. Per nursing staff no signs of any active bleeding. On 03/10/2018 patient is currently resting in bed. Patient is currently getting dialysis. Patient underwent EGD yesterday. Discussed case with patient 's DPOA. And case management. At this time physical therapy recommending rehab due to increased weakness. Per patient's DPOA patient has been increasingly weak at home and having trouble regulating his meds. Discussed with case management working on rehab discharge on Monday to . This time patient denies chest pain or shortness of breath. Patient denies nausea vomiting or diarrhea. Patient denies any urinary burning or frequency On 03/11/2018 patient is alert and oriented 3 resting comfortably in bed. Patient did not undergo dialysis yesterday. Plans for rehab discharge possibly in the next 24-48 hours. This time patient denies chest pain or shortness of breath. Denies nausea vomiting or diarrhea. Patient denies any urinary burning or frequency. Patient's blood sugars have improved. hgb stable at 8.9 Objective - Vital Signs Vital signs: Vital Signs Temp 97.7 F 03/11/18 05:00 Pulse 64 03/11/18 05:00 Resp 16 03/11/18 05:00 BP 111/60 03/11/18 05:00 Pulse Ox 98 03/11/18 05:00 Intake & Output 03/10/18 03/11/18 03/11/18 18:59 06:59 18:59 Intake Total 1200 240 Output Total 100 Balance 1100 240 Weight 95 kg Intake: Intake, IV Titration 240 Amount Sodium Chloride 0.9% 1, 240 000 ml @ 20 mls/hr IV . Q24H [facility] Rx#:[id number] Oral 1200 Output: Urine 100 Other: Voiding Method Urinal Urinal Diaper Diaper # Voids 1 - Exam Head normocephalic Neck supple Lungs clear to auscultation bilaterally no wheezing or crackles Heart regular rate and rhythm S1-S2, no rub or gallop Abdomen is soft nontender nondistended positive bowel sounds no hepatosplenomegaly Extremities no edema. Right heel ulcer clean dry and intact Neuro alert and orientated to 3 - Labs CBC & Chem 7: 03/11/18 06:48 03/11/18 06:48 Labs: Abnormal Lab Results - Last 24 Hours (Table) 03/10/18 03/10/18 03/11/18 Range/Units 17:11 20:43 06:48 RBC (4.30-5.90) m/uL Hgb (13.0-17.5) gm/dL Hct (39.0-53.0) % RDW (11.5-15.5) % Sodium 135 L (137-145) mmol/L BUN 27 H (9-20) mg/dL Creatinine 3.46 H (0.66-1.25) mg/dL Glucose 126 H (74-99) mg/dL POC Glucose (mg/dL) 348 H 311 H (75-99) mg/dL Calcium 7.5 L (8.4-10.2) mg/dL AST 13 L (17-59) U/L ALT 12 L (21-72) U/L Alkaline Phosphatase 28 L (38-126) U/L Total Protein 4.6 L (6.3-8.2) g/dL Albumin 2.6 L (3.5-5.0) g/dL 03/11/18 03/11/18 03/11/18 Range/Units 06:48 07:23 11:10 RBC 3.06 L (4.30-5.90) m/uL Hgb 8.9 L (13.0-17.5) gm/dL Hct 28.3 L (39.0-53.0) % RDW 16.2 H (11.5-15.5) % Sodium (137-145) mmol/L BUN (9-20) mg/dL Creatinine (0.66-1.25) mg/dL Glucose (74-99) mg/dL POC Glucose (mg/dL) 136 H 174 H (75-99) mg/dL Calcium (8.4-10.2) mg/dL AST (17-59) U/L ALT (21-72) U/L Alkaline Phosphatase (38-126) U/L Total Protein (6.3-8.2) g/dL Albumin (3.5-5.0) g/dL Assessment and Plan Assessment: 1. Syncopal episode. Likely vasovagal. Head CT completed showing atrophy with periventricular white matter ischemic changes. Carotid Doppler study completed showing atheromatous plaquing without significant flow-limiting stenosis. 2-D echo completed in November 2017 showing an EF of 55-60%. 2. Anemia of chronic disease with possible concern for GI bleed due to melanotic stool and positive occult stool. Hemoglobin 8.6. GI services are following. EGD completed showing mild gastritis of antrum and body, biopsy. Mild duodenitis, biopsied and distal esophagus ulcers without any active bleeding or high risk stigmata for rebleeding biopsied. This time GI recommending Protonix twice daily and continue monitoring hemoglobin 3. End-stage renal disease. Maintained on hemodialysis Monday and Monday. 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 Patient has completed 4 doses of rituximab and plasmapheresis. Patient maintained on prednisone daily per nephrology 4. Essential hypertension 5. Diabetes mellitus with hyperglycemia. Sliding scale insulin coverage has been ordered. A1c 6.0 6. History of hypothyroidism. Continue Synthroid. TSH recently checked on 07/2018, TSH level 1.990 7. History of hyperlipidemia DVT prophylaxis SCDs. GI prophylaxis Protonix Social work consulted for discharge planning Physical therapy recommending rehab. DPOA first choice [facility] I performed an examination of the patient and discussed their management with the Nurse Practitioner. I have reviewed the Nurse Practitioner's notes and agree with the documented findings and plan of care
--- NOTE | 2018-03-11 12:29 | P.PN ---
Subjective Progress Note Date: 03/11/18 Seen and examined for the follow-up of ESRD. Had dialysis treatment yesterday tolerated well. Next dialysis on Monday. Objective - Vital Signs Vital signs: Vital Signs Temp 97.7 F 03/11/18 05:00 Pulse 64 03/11/18 05:00 Resp 16 03/11/18 05:00 BP 111/60 03/11/18 05:00 Pulse Ox 98 03/11/18 05:00 Intake & Output 03/10/18 03/11/18 03/11/18 18:59 06:59 18:59 Intake Total 1200 240 Output Total 100 Balance 1100 240 Weight 95 kg Intake: Intake, IV Titration 240 Amount Sodium Chloride 0.9% 1, 240 000 ml @ 20 mls/hr IV . Q24H [facility] Rx#:[id number] Oral 1200 Output: Urine 100 Other: Voiding Method Urinal Urinal Diaper Diaper # Voids 1 - Exam No acute distress Right jugular permacath S1-S2 heard Diminished breath sounds Edema - Labs CBC & Chem 7: 03/11/18 06:48 03/11/18 06:48 Labs: Abnormal Lab Results - Last 24 Hours (Table) 03/10/18 03/10/18 03/11/18 Range/Units 17:11 20:43 06:48 RBC (4.30-5.90) m/uL Hgb (13.0-17.5) gm/dL Hct (39.0-53.0) % RDW (11.5-15.5) % Sodium 135 L (137-145) mmol/L BUN 27 H (9-20) mg/dL Creatinine 3.46 H (0.66-1.25) mg/dL Glucose 126 H (74-99) mg/dL POC Glucose (mg/dL) 348 H 311 H (75-99) mg/dL Calcium 7.5 L (8.4-10.2) mg/dL AST 13 L (17-59) U/L ALT 12 L (21-72) U/L Alkaline Phosphatase 28 L (38-126) U/L Total Protein 4.6 L (6.3-8.2) g/dL Albumin 2.6 L (3.5-5.0) g/dL 03/11/18 03/11/18 03/11/18 Range/Units 06:48 07:23 11:10 RBC 3.06 L (4.30-5.90) m/uL Hgb 8.9 L (13.0-17.5) gm/dL Hct 28.3 L (39.0-53.0) % RDW 16.2 H (11.5-15.5) % Sodium (137-145) mmol/L BUN (9-20) mg/dL Creatinine (0.66-1.25) mg/dL Glucose (74-99) mg/dL POC Glucose (mg/dL) 136 H 174 H (75-99) mg/dL Calcium (8.4-10.2) mg/dL AST (17-59) U/L ALT (21-72) U/L Alkaline Phosphatase (38-126) U/L Total Protein (6.3-8.2) g/dL Albumin (3.5-5.0) g/dL Assessment and Plan Assessment: #1 syncope vasovagal #2 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 #3 hypertension with ESRD #4 anemia with ESRD #5 metabolic bone disease with ESRD Plan: #1 hemodialysis TTS as outpatient schedule #2 ESRD medications
[2018-03-11] MEDS: SODIUM CHLORIDE 0.9% 1,000 ML IV SCH (17:51)
[2018-03-11 17:54] LABS: Glucose,Whole Blood 304 mg/dL (75-99)
[2018-03-11 20:16] LABS: Glucose,Whole Blood 319 mg/dL (75-99)
[2018-03-11] MEDS: INSULIN DETEMIR 100 UNIT/ML 10 ML VIAL SQ SCH (20:23)
[2018-03-11] MEDS: ATORVASTATIN 10 MG TAB PO SCH (20:23)
[2018-03-12] MEDS: LEVOTHYROXINE 25 MCG TAB PO SCH (06:02)
[2018-03-12 07:02] LABS: Glucose,Whole Blood 147 mg/dL (75-99)
[2018-03-12] MEDS: NIFEdipine XL 90 MG TAB.ER.24 PO SCH (07:55)
[2018-03-12] MEDS: CARVEDILOL 12.5 MG TAB PO SCH ×2 (07:55→17:45)
[2018-03-12] MEDS: predniSONE 10 MG TAB PO SCH (07:55)
[2018-03-12] MEDS: PANTOPRAZOLE 40 MG TABLET PO SCH ×2 (07:56→21:00)
[2018-03-12] MEDS: INSULIN ASPART 100 UNIT/ML 1 ML 10 ML VIAL SQ SCH ×4 (07:56→21:00)
[2018-03-12 08:06] LABS: Basophils % (A) 0 %; Eosinophils # (A) 0.1 k/uL (0-0.7); Eosinophils % (A) 1 %; HCT 30.5 % (39.0-53.0); HGB 9.6 gm/dL (13.0-17.5); Hypochromasia Moderate; Lymphocytes # (A) 1.2 k/uL (1.0-4.8); Lymphocytes % (A) 11 %; MCHC 31.3 g/dL (31.0-37.0); MCV 92.6 fL (80.0-100.0); Mean Platelet Volume 6.7; Monocytes # (A) 0.7 k/uL (0-1.0); Monocytes % (A) 7 %; Neutrophils # (A) 8.5 k/uL (1.3-7.7); Neutrophils % (A) 78 %; Platelet Count 254 k/uL (150-450); RDW 15.9 % (11.5-15.5); WBC 10.9 k/uL (3.8-10.6)
[2018-03-12 08:20] LABS: Calcium 8.1 mg/dL (8.4-10.2); Total Bilirubin 0.6 mg/dL (0.2-1.3); Total Protein 5.2 g/dL (6.3-8.2)
[2018-03-12 08:21] LABS: Potassium 4.3 mmol/L (3.5-5.1)
[2018-03-12 11:19] LABS: Glucose,Whole Blood 250 mg/dL (75-99)
--- NOTE | 2018-03-12 15:03 | P.PN ---
Subjective Progress Note Date: 03/12/18 This is an 82-year-old male patient well known to our services. Patient presents to the emergency room with complaints of near syncopal event while patient was trying to have a bowel movement. Per EMS report patient was noted to have a very dark looking stool. And patient did lose consciousness for approximately 30 seconds of being assisted by EMS patient's blood sugar was also noted to be high at 515. 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 Additional medical history includes wound to right heel which she follows with 10:00 and wound care center, prostate cancer surgery , cardiac valve replacement, heart cath and hypothyroidism. Head CT completed in emergency room showing atrophy with periventricular white matter ischemic changes. Chest x-ray completed showing cardiomegaly and interstitial changes, possible mild pulmonary vascular congestion. Overall appearance is improved from 02/17/2018. EKG completed showing sinus rhythm with premature supraventricular complexes. Hemoglobin 9.6 upon arrival. GI and nephrology services have been consulted. At this time patient denies chest pain or shortness breath. Patient denies nausea vomiting or diarrhea. Denies any urinary burning or frequency. On 03/09/2018 patient is currently resting comfortably in bed. Patient denies any complaints at this time. Patient to undergo EGD today. This time patient denies chest pain or shortness of breath. Patient denies nausea vomiting or diarrhea. Patient denies any urinary burning or frequency. Per nursing staff no signs of any active bleeding. On 03/10/2018 patient is currently resting in bed. Patient is currently getting dialysis. Patient underwent EGD yesterday. Discussed case with patient 's DPOA. And case management. At this time physical therapy recommending rehab due to increased weakness. Per patient's DPOA patient has been increasingly weak at home and having trouble regulating his meds. Discussed with case management working on rehab discharge on Monday to . This time patient denies chest pain or shortness of breath. Patient denies nausea vomiting or diarrhea. Patient denies any urinary burning or frequency On 03/11/2018 patient is alert and oriented 3 resting comfortably in bed. Patient did not undergo dialysis yesterday. Plans for rehab discharge possibly in the next 24-48 hours. This time patient denies chest pain or shortness of breath. Denies nausea vomiting or diarrhea. Patient denies any urinary burning or frequency. Patient's blood sugars have improved. hgb stable at 8.9 On 03/12/2018 patient is alert and oriented 3 resting comfortably in bed. This time patient denies chest pain or shortness breath. Patient denies nausea vomiting or diarrhea. Patient denies any urinary burning or frequency. Blood sugars have been improved. Waiting on insurance prior auth for ECF placement. Objective - Vital Signs Vital signs: Vital Signs Temp 98 F 03/12/18 11:28 Pulse 64 03/12/18 11:28 Resp 18 03/12/18 11:28 BP 147/70 03/12/18 11:28 Pulse Ox 96 03/12/18 11:28 Intake & Output 03/11/18 03/12/18 03/12/18 18:59 06:59 18:59 Intake Total 940 550 Output Total 100 Balance 840 550 Weight 95 kg Intake: Intake, IV Titration 240 70 Amount Sodium Chloride 0.9% 1, 240 70 000 ml @ 20 mls/hr IV . Q24H [facility] Rx#:[id number] Oral 700 480 Output: Urine 100 Other: Voiding Method Urinal Urinal Urinal Diaper Diaper Diaper # Voids 3 1 2 - Exam Head normocephalic Neck supple Lungs clear to auscultation bilaterally no wheezing or crackles Heart regular rate and rhythm S1-S2, no rub or gallop Abdomen is soft nontender nondistended positive bowel sounds no hepatosplenomegaly Extremities no edema. Right heel ulcer clean dry and intact Neuro alert and orientated to 3 - Labs CBC & Chem 7: 03/12/18 07:33 03/12/18 07:33 Labs: Abnormal Lab Results - Last 24 Hours (Table) 03/11/18 03/11/18 03/12/18 Range/Units 17:53 20:15 06:59 WBC (3.8-10.6) k/uL RBC (4.30-5.90) m/uL Hgb (13.0-17.5) gm/dL Hct (39.0-53.0) % RDW (11.5-15.5) % Neutrophils # (1.3-7.7) k/uL Sodium (137-145) mmol/L Carbon Dioxide (22-30) mmol/L BUN (9-20) mg/dL Creatinine (0.66-1.25) mg/dL Glucose (74-99) mg/dL POC Glucose (mg/dL) 304 H 319 H 147 H (75-99) mg/dL Calcium (8.4-10.2) mg/dL ALT (21-72) U/L Alkaline Phosphatase (38-126) U/L Total Protein (6.3-8.2) g/dL Albumin (3.5-5.0) g/dL 03/12/18 03/12/18 03/12/18 Range/Units 07:33 07:33 11:16 WBC 10.9 H (3.8-10.6) k/uL RBC 3.30 L (4.30-5.90) m/uL Hgb 9.6 L (13.0-17.5) gm/dL Hct 30.5 L (39.0-53.0) % RDW 15.9 H (11.5-15.5) % Neutrophils # 8.5 H (1.3-7.7) k/uL Sodium 135 L (137-145) mmol/L Carbon Dioxide 21 L (22-30) mmol/L BUN 46 H (9-20) mg/dL Creatinine 4.60 H (0.66-1.25) mg/dL Glucose 134 H (74-99) mg/dL POC Glucose (mg/dL) 250 H (75-99) mg/dL Calcium 8.1 L (8.4-10.2) mg/dL ALT 14 L (21-72) U/L Alkaline Phosphatase 29 L (38-126) U/L Total Protein 5.2 L (6.3-8.2) g/dL Albumin 3.0 L (3.5-5.0) g/dL Assessment and Plan Assessment: 1. Syncopal episode. Likely vasovagal. Head CT completed showing atrophy with periventricular white matter ischemic changes. Carotid Doppler study completed showing atheromatous plaquing without significant flow-limiting stenosis. 2-D echo completed in November 2017 showing an EF of 55-60%. 2. Anemia of chronic disease with possible concern for GI bleed due to melanotic stool and positive occult stool. Hemoglobin 8.6. GI services are following. EGD completed showing mild gastritis of antrum and body, biopsy. Mild duodenitis, biopsied and distal esophagus ulcers without any active bleeding or high risk stigmata for rebleeding biopsied. This time GI recommending Protonix twice daily and continue monitoring hemoglobin 3. End-stage renal disease. Maintained on hemodialysis Monday and Monday. 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 Patient has completed 4 doses of rituximab and plasmapheresis. Patient maintained on prednisone daily per nephrology 4. Essential hypertension 5. Diabetes mellitus with hyperglycemia. Sliding scale insulin coverage has been ordered. A1c 6.0 6. History of hypothyroidism. Continue Synthroid. TSH recently checked on 07/2018, TSH level 1.990 7. History of hyperlipidemia DVT prophylaxis SCDs. GI prophylaxis Protonix Social work consulted for discharge planning Physical therapy recommending rehab. [facility] performed an examination of the patient and discussed their management with the Nurse Practitioner. I have reviewed the Nurse Practitioner's notes and agree with the documented findings and plan of care
[2018-03-12 17:01] LABS: Glucose,Whole Blood 278 mg/dL (75-99)
[2018-03-12] MEDS: SODIUM CHLORIDE 0.9% 1,000 ML IV SCH (17:02)
--- NOTE | 2018-03-12 20:33 | PN ---
PROGRESS NOTE The patient is seen for followup for end-stage renal disease. He is maintained on hemodialysis on a Monday, , Monday schedule. Patient will be dialyzed tomorrow. He was admitted to the hospital with syncope. There was concern for GI bleed. The patient had an EGD done which showed evidence of gastritis, duodenitis, distal esophageal ulcers were seen without any active bleeding noted. Hemoglobin is stable at about 9.6 g/dL. No active bleeding noted at this time. PHYSICAL EXAMINATION: On examination today, blood pressure is 147/70, heart rate 64 per minute. He is afebrile. Examination of the heart S1, S2. Examination of lungs bilateral breath sounds are heard. Decreased breath sounds at bases. Abdomen is soft, nontender. Examination of lower extremities shows no evidence of edema. 3D TECHNOLOGIST exam is grossly intact. LAB: Show hemoglobin 9.6, potassium is 4.3, serum creatinine 4.6. ASSESSMENT: 1. 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 Patient remains hemodialysis dependent. Urine output remains low. He will be dialyzed tomorrow. He currently has an IJ PermCath and the patient will soon have an AV fistula-/AV graft placed for dialysis. 2. Hypertension, currently controlled. 3. Gastrointestinal bleed with no active bleeding noted, status post EGD. 4. Chronic kidney disease, mineral bone disorder. 5. Anemia, multifactorial. PLAN: Hemodialysis in a.m. We can dialyze the patient in the hospital if he is still here tomorrow. MMODL / IJN: [id number] /
[2018-03-12 20:54] LABS: Glucose,Whole Blood 335 mg/dL (75-99)
[2018-03-12] MEDS: ATORVASTATIN 10 MG TAB PO SCH (21:00)
[2018-03-12] MEDS: INSULIN DETEMIR 100 UNIT/ML 10 ML VIAL SQ SCH (21:00)
[2018-03-13] MEDS: LEVOTHYROXINE 25 MCG TAB PO SCH (06:09)
[2018-03-13 07:08] LABS: Glucose,Whole Blood 117 mg/dL (75-99)
[2018-03-13] MEDS: INSULIN ASPART 100 UNIT/ML 1 ML 10 ML VIAL SQ SCH ×6 (07:15→21:52)
[2018-03-13] MEDS: NIFEdipine XL 90 MG TAB.ER.24 PO SCH (08:00)
[2018-03-13] MEDS: CARVEDILOL 12.5 MG TAB PO SCH (08:00)
[2018-03-13] MEDS: PANTOPRAZOLE 40 MG TABLET PO SCH ×2 (08:00→21:52)
[2018-03-13] MEDS: predniSONE 10 MG TAB PO SCH (08:00)
[2018-03-13 09:16] LABS: Basophils % (A) 0 %; Eosinophils # (A) 0.1 k/uL (0-0.7); Eosinophils % (A) 1 %; HCT 27.5 % (39.0-53.0); HGB 8.6 gm/dL (13.0-17.5); Lymphocytes # (A) 1.5 k/uL (1.0-4.8); Lymphocytes % (A) 17 %; MCH 28.4 pg (25.0-35.0); MCHC 31.3 g/dL (31.0-37.0); MCV 90.9 fL (80.0-100.0); Mean Platelet Volume 7.1; Monocytes # (A) 0.8 k/uL (0-1.0); Monocytes % (A) 9 %; Neutrophils # (A) 6.2 k/uL (1.3-7.7); Neutrophils % (A) 71 %; Platelet Count 279 k/uL (150-450); RBC 3.03 m/uL (4.30-5.90); RDW 15.9 % (11.5-15.5); WBC 8.8 k/uL (3.8-10.6)
[2018-03-13 09:24] LABS: Albumin 2.8 g/dL (3.5-5.0); Calcium 7.9 mg/dL (8.4-10.2); Potassium 4.3 mmol/L (3.5-5.1); Total Bilirubin 0.4 mg/dL (0.2-1.3); Total Protein 4.8 g/dL (6.3-8.2)
[2018-03-13 11:06] LABS: Glucose,Whole Blood 179 mg/dL (75-99)
--- NOTE | 2018-03-13 14:10 | P.DS ---
Providers Date of admission: 03/07/18 16:26 Expected date of discharge: 03/13/18 Attending physician: Jomar Rangel Consults: 03/07/18 16:23 Consult Physician Routine Consulting Provider: Eugenia Berry Consult Reason/Comments: Renal failure, dialysis Do you want consulting provider notified?: Yes Primary care physician: Jomar Rangel [facility] Course: Discharge diagnosis 1. Syncopal episode. Likely vasovagal. Head CT completed showing atrophy with periventricular white matter ischemic changes. Carotid Doppler study completed showing atheromatous plaquing without significant flow-limiting stenosis. 2-D echo completed in November 2017 showing an EF of 55-60%. 2. Anemia of chronic disease with possible concern for GI bleed due to melanotic stool and positive occult stool. Hemoglobin 8.6. GI services are following. EGD completed showing mild gastritis of antrum and body, biopsy. Mild duodenitis, biopsied and distal esophagus ulcers without any active bleeding or high risk stigmata for rebleeding biopsied. This time GI recommending Protonix twice daily and continue monitoring hemoglobin 3. End-stage renal disease. Maintained on hemodialysis Monday and Monday. 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 Patient has completed 4 doses of rituximab and plasmapheresis. Patient maintained on prednisone daily per nephrology 4. Essential hypertension 5. Diabetes mellitus with hyperglycemia. Sliding scale insulin coverage has been ordered. A1c 6.0. Continue Lantus with sliding scale +5 mg units per meals 6. History of hypothyroidism. Continue Synthroid. TSH recently checked on 07/2018, TSH level 1.990 7. History of hyperlipidemia Hospital course This is an 82-year-old male patient well known to our services. Patient presents to the emergency room with complaints of near syncopal event while patient was trying to have a bowel movement. Per EMS report patient was noted to have a very dark looking stool. And patient did lose consciousness for approximately 30 seconds of being assisted by EMS patient's blood sugar was also noted to be high at 515. 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 for plasmapheresis but had no improvement is now requiring hemodialysis Monday. Additional medical history includes wound to right heel which she follows with 10:00 and wound care center, prostate cancer surgery , cardiac valve replacement, heart cath and hypothyroidism. Head CT completed in emergency room showing atrophy with periventricular white matter ischemic changes. Chest x-ray completed showing cardiomegaly and interstitial changes, possible mild pulmonary vascular congestion. Overall appearance is improved from 02/17/2018. EKG completed showing sinus rhythm with premature supraventricular complexes. Hemoglobin 9.6 upon arrival. GI and nephrology services have been consulted. At this time patient denies chest pain or shortness breath. Patient denies nausea vomiting or diarrhea. Denies any urinary burning or frequency. On 03/09/2018 patient is currently resting comfortably in bed. Patient denies any complaints at this time. Patient to undergo EGD today. This time patient denies chest pain or shortness of breath. Patient denies nausea vomiting or diarrhea. Patient denies any urinary burning or frequency. Per nursing staff no signs of any active bleeding. On 03/10/2018 patient is currently resting in bed. Patient is currently getting dialysis. Patient underwent EGD yesterday. Discussed case with patient 's DPOA. And case management. At this time physical therapy recommending rehab due to increased weakness. Per patient's DPOA patient has been increasingly weak at home and having trouble regulating his meds. Discussed with case management working on rehab discharge on Monday to . This time patient denies chest pain or shortness of breath. Patient denies nausea vomiting or diarrhea. Patient denies any urinary burning or frequency On 03/11/2018 patient is alert and oriented 3 resting comfortably in bed. Patient did not undergo dialysis yesterday. Plans for rehab discharge possibly in the next 24-48 hours. This time patient denies chest pain or shortness of breath. Denies nausea vomiting or diarrhea. Patient denies any urinary burning or frequency. Patient's blood sugars have improved. hgb stable at 8.9 On 03/12/2018 patient is alert and oriented 3 resting comfortably in bed. This time patient denies chest pain or shortness breath. Patient denies nausea vomiting or diarrhea. Patient denies any urinary burning or frequency. Blood sugars have been improved. Waiting on insurance prior auth for ECF placement. On 03/13/2018 patient is alert and oriented 3 currently getting hemodialysis. Patient denies chest pain or shortness breath. Patient denies nausea vomiting or diarrhea. Denies any urinary burning or frequency. hgb 8.6 been with no active signs of bleeding Patient to be discharged to [facility]. Patient to be followed by Dr. rangel I performed an examination of the patient and discussed their management with the Nurse Practitioner. I have reviewed the Nurse Practitioner's notes and agree with the documented findings and plan of care Patient Condition at Discharge: Stable Plan - Discharge Summary Discharge Rx Participant: No New Discharge Prescriptions: New Carvedilol [Coreg] 6.25 mg PO BID-W/MEALS tab Insulin Aspart [NovoLOG (formulary)] 5 unit SQ AC-TID vial Insulin Aspart [NovoLOG (formulary)] 0 unit SQ ACHS vial Pantoprazole [Protonix] 40 mg PO BID tablet. predniSONE 30 mg PO DAILY tab Continue Levothyroxine Sodium [Synthroid] 25 mcg PO DAILY Simvastatin [Zocor] 20 mg PO HS NIFEdipine [NIFEdipine ER] 90 mg PO DAILY Insulin Glargine [Lantus] 10 unit SQ HS #1 vial Discontinued Carvedilol [Coreg*] 12.5 mg PO BID Discharge Medication List Levothyroxine Sodium [Synthroid] 25 mcg PO DAILY 05/05/14 [History] Simvastatin [Zocor] 20 mg PO HS 05/05/14 [History] NIFEdipine [NIFEdipine ER] 90 mg PO DAILY 12/23/17 [History] Insulin Glargine [Lantus] 10 unit SQ HS #1 vial 02/19/18 [Rx] Carvedilol [Coreg] 6.25 mg PO BID-W/MEALS tab 03/13/18 [Rx] Insulin Aspart [NovoLOG (formulary)] 0 unit SQ ACHS vial 03/13/18 [Rx] Insulin Aspart [NovoLOG (formulary)] 5 unit SQ AC-TID vial 03/13/18 [Rx] Pantoprazole [Protonix] 40 mg PO BID tablet. 03/13/18 [Rx] predniSONE 30 mg PO DAILY tab 03/13/18 [Rx] Follow up Appointment(s)/Referral(s): Jomar Rangel MD [Primary Care Provider] - 1-2 days Eugenia Berry MD [STAFF PHYSICIAN] - 1 Week Activity/Diet/Wound Care/Special Instructions: Activity as tolerated Diet renal Discharge Disposition: HOME SELF-CARE
[2018-03-13 17:25] LABS: Glucose,Whole Blood 230 mg/dL (75-99)
[2018-03-13] MEDS: CARVEDILOL 6.25 MG TAB PO SCH (17:58)
[2018-03-13 20:31] LABS: Glucose,Whole Blood 296 mg/dL (75-99)
--- NOTE | 2018-03-13 20:31 | PN ---
PROGRESS NOTE Patient is seen for followup for end-stage renal disease. He is maintained on a Monday, , Monday schedule for hemodialysis. The patient is currently awaiting placement to rehab facility. He is seen on hemodialysis, tolerating his treatment very well. Goal UF is about 1 L. PHYSICAL EXAMINATION: This morning, blood pressure was 119/61, heart rate of 70 per minute. Patient is afebrile. Examination of the heart S1, S2. Examination of the lungs bilateral breath sounds are heard. Abdomen is soft, nontender. Examination of lower extremities shows no evidence of edema. [employer] exam is grossly intact. LAB: Show sodium 137, potassium 4.3, hemoglobin 8.6 g/dL. Serum creatinine at 5.67, albumin at 2.8. ASSESSMENT: 1. End-stage renal disease, on hemodialysis on a Monday, , Monday schedule. Etiology was acute kidney injury from an ANCA vasculitis, status post plasmapheresis, Rituxan, and currently maintained on prednisone which is being weaned. 2. Gastrointestinal bleed status post EGD which showed gastritis and esophagitis with no evidence of active bleeding. There were distal esophageal ulcers noted as well. 3. Anemia, multifactorial, maintained on Aranesp. 4. CKD mineral bone disorder. PLAN: Goal UF of about a L with hemodialysis today. Awaiting placement to rehab. MMODL / THOMASN: [id number] /
[2018-03-13] MEDS: SODIUM CHLORIDE 0.9% 1,000 ML IV SCH (21:41)
[2018-03-13] MEDS: ATORVASTATIN 10 MG TAB PO SCH (21:52)
[2018-03-13] MEDS: INSULIN DETEMIR 100 UNIT/ML 10 ML VIAL SQ SCH (21:52)
[2018-03-14] MEDS: LEVOTHYROXINE 25 MCG TAB PO SCH (06:29)
[2018-03-14 07:04] LABS: Glucose,Whole Blood 149 mg/dL (75-99)
[2018-03-14 07:57] LABS: Basophils % (A) 0 %; Eosinophils # (A) 0.1 k/uL (0-0.7); Eosinophils % (A) 1 %; HCT 28.6 % (39.0-53.0); HGB 9.5 gm/dL (13.0-17.5); Lymphocytes # (A) 1.4 k/uL (1.0-4.8); Lymphocytes % (A) 15 %; MCH 29.5 pg (25.0-35.0); MCHC 33.3 g/dL (31.0-37.0); MCV 88.6 fL (80.0-100.0); Mean Platelet Volume 6.5; Monocytes # (A) 0.9 k/uL (0-1.0); Monocytes % (A) 10 %; Neutrophils # (A) 6.4 k/uL (1.3-7.7); Neutrophils % (A) 72 %; Platelet Count 290 k/uL (150-450); RBC 3.23 m/uL (4.30-5.90); RDW 15.9 % (11.5-15.5)
[2018-03-14 08:02] LABS: Albumin 2.9 g/dL (3.5-5.0); Calcium 7.9 mg/dL (8.4-10.2); Total Bilirubin 0.5 mg/dL (0.2-1.3)
[2018-03-14 08:11] LABS: Potassium 4.6 mmol/L (3.5-5.1)
[2018-03-14] MEDS: INSULIN ASPART 100 UNIT/ML 1 ML 10 ML VIAL SQ SCH ×4 (08:19→12:46)
[2018-03-14] MEDS: CARVEDILOL 6.25 MG TAB PO SCH (08:19)
[2018-03-14] MEDS: predniSONE 10 MG TAB PO SCH (08:19)
[2018-03-14] MEDS: NIFEdipine XL 90 MG TAB.ER.24 PO SCH (08:20)
[2018-03-14] MEDS: PANTOPRAZOLE 40 MG TABLET PO SCH (08:20)
[2018-03-14 12:28] LABS: Glucose,Whole Blood 148 mg/dL (75-99)
[2018-03-14 13:04] VITALS: BP 142/66; PULSE 60; RESP 16; TEMP 97.9
[2018-03-14 13:14] VITALS: BMI 28.4
--- NOTE | 2018-03-14 13:34 | P.PN ---
Subjective Progress Note Date: 03/14/18 This is an 82-year-old male patient well known to our services. Patient presents to the emergency room with complaints of near syncopal event while patient was trying to have a bowel movement. Per EMS report patient was noted to have a very dark looking stool. And patient did lose consciousness for approximately 30 seconds of being assisted by EMS patient's blood sugar was also noted to be high at 515. 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 Additional medical history includes wound to right heel which she follows with 10:00 and wound care center, prostate cancer surgery , cardiac valve replacement, heart cath and hypothyroidism. Head CT completed in emergency room showing atrophy with periventricular white matter ischemic changes. Chest x-ray completed showing cardiomegaly and interstitial changes, possible mild pulmonary vascular congestion. Overall appearance is improved from 02/17/2018. EKG completed showing sinus rhythm with premature supraventricular complexes. Hemoglobin 9.6 upon arrival. GI and nephrology services have been consulted. At this time patient denies chest pain or shortness breath. Patient denies nausea vomiting or diarrhea. Denies any urinary burning or frequency. On 03/09/2018 patient is currently resting comfortably in bed. Patient denies any complaints at this time. Patient to undergo EGD today. This time patient denies chest pain or shortness of breath. Patient denies nausea vomiting or diarrhea. Patient denies any urinary burning or frequency. Per nursing staff no signs of any active bleeding. On 03/10/2018 patient is currently resting in bed. Patient is currently getting dialysis. Patient underwent EGD yesterday. Discussed case with patient 's DPOA. And case management. At this time physical therapy recommending rehab due to increased weakness. Per patient's DPOA patient has been increasingly weak at home and having trouble regulating his meds. Discussed with case management working on rehab discharge on Monday to . This time patient denies chest pain or shortness of breath. Patient denies nausea vomiting or diarrhea. Patient denies any urinary burning or frequency On 03/11/2018 patient is alert and oriented 3 resting comfortably in bed. Patient did not undergo dialysis yesterday. Plans for rehab discharge possibly in the next 24-48 hours. This time patient denies chest pain or shortness of breath. Denies nausea vomiting or diarrhea. Patient denies any urinary burning or frequency. Patient's blood sugars have improved. hgb stable at 8.9 On 03/12/2018 patient is alert and oriented 3 resting comfortably in bed. This time patient denies chest pain or shortness breath. Patient denies nausea vomiting or diarrhea. Patient denies any urinary burning or frequency. Blood sugars have been improved. Waiting on insurance prior auth for ECF placement. On 03/14/2018 patient is alert and oriented 3 resting comfortably bed. Patient planning to be DC'd to [facility] today. At this time patient denies chest pain or shortness breath. Patient denies nausea vomiting or diarrhea. Patient denies any urinary burning or frequency. Objective - Vital Signs Vital signs: Vital Signs Temp 97.9 F 03/14/18 13:00 Pulse 60 03/14/18 13:00 Resp 16 03/14/18 13:00 BP 142/66 03/14/18 13:00 Pulse Ox 99 03/14/18 13:00 Intake & Output 03/13/18 03/14/18 03/14/18 18:59 06:59 18:59 Intake Total 160 640 Balance 160 640 Weight 95 kg 95 kg Intake: Intake, IV Titration 160 Amount Sodium Chloride 0.9% 1, 160 000 ml @ 20 mls/hr IV . Q24H [facility] Rx#:[id number] Oral 640 Other: Voiding Method Urinal Urinal Urinal Diaper Diaper Diaper # Voids 1 - Exam Head normocephalic Neck supple Lungs clear to auscultation bilaterally no wheezing or crackles Heart regular rate and rhythm S1-S2, no rub or gallop Abdomen is soft nontender nondistended positive bowel sounds no hepatosplenomegaly Extremities no edema. Right heel ulcer clean dry and intact Neuro alert and orientated to 3 - Labs CBC & Chem 7: 03/14/18 07:30 03/14/18 07:30 Labs: Abnormal Lab Results - Last 24 Hours (Table) 03/13/18 03/13/18 03/14/18 Range/Units 17:19 20:29 07:04 RBC (4.30-5.90) m/uL Hgb (13.0-17.5) gm/dL Hct (39.0-53.0) % RDW (11.5-15.5) % Sodium (137-145) mmol/L BUN (9-20) mg/dL Creatinine (0.66-1.25) mg/dL Glucose (74-99) mg/dL POC Glucose (mg/dL) 230 H 296 H 149 H (75-99) mg/dL Calcium (8.4-10.2) mg/dL AST (17-59) U/L ALT (21-72) U/L Alkaline Phosphatase (38-126) U/L Total Protein (6.3-8.2) g/dL Albumin (3.5-5.0) g/dL 03/14/18 03/14/18 03/14/18 Range/Units 07:30 07:30 12:27 RBC 3.23 L (4.30-5.90) m/uL Hgb 9.5 L (13.0-17.5) gm/dL Hct 28.6 L (39.0-53.0) % RDW 15.9 H (11.5-15.5) % Sodium 134 L (137-145) mmol/L BUN 38 H (9-20) mg/dL Creatinine 3.85 H (0.66-1.25) mg/dL Glucose 117 H (74-99) mg/dL POC Glucose (mg/dL) 148 H (75-99) mg/dL Calcium 7.9 L (8.4-10.2) mg/dL AST 16 L (17-59) U/L ALT 14 L (21-72) U/L Alkaline Phosphatase 28 L (38-126) U/L Total Protein 5.0 L (6.3-8.2) g/dL Albumin 2.9 L (3.5-5.0) g/dL Assessment and Plan Assessment: 1. Syncopal episode. Likely vasovagal. Head CT completed showing atrophy with periventricular white matter ischemic changes. Carotid Doppler study completed showing atheromatous plaquing without significant flow-limiting stenosis. 2-D echo completed in November 2017 showing an EF of 55-60%. 2. Anemia of chronic disease with possible concern for GI bleed due to melanotic stool and positive occult stool. Hemoglobin 8.6. GI services are following. EGD completed showing mild gastritis of antrum and body, biopsy. Mild duodenitis, biopsied and distal esophagus ulcers without any active bleeding or high risk stigmata for rebleeding biopsied. This time GI recommending Protonix twice daily and continue monitoring hemoglobin 3. End-stage renal disease. Maintained on hemodialysis Monday and Monday. 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 Patient has completed 4 doses of rituximab and plasmapheresis. Patient maintained on prednisone daily per nephrology 4. Essential hypertension 5. Diabetes mellitus with hyperglycemia. Sliding scale insulin coverage has been ordered. A1c 6.0 6. History of hypothyroidism. Continue Synthroid. TSH recently checked on 07/2018, TSH level 1.990 7. History of hyperlipidemia DVT prophylaxis SCDs. GI prophylaxis Protonix Social work consulted for discharge planning Physical therapy recommending rehab. DPOA first choice [address] I performed an examination of the patient and discussed their management with the Nurse Practitioner. I have reviewed the Nurse Practitioner's notes and agree with the documented findings and plan of care
--- NOTE | 2018-03-14 15:29 | PN ---
PROGRESS NOTE Patient is seen for followup for end-stage renal disease. He was dialyzed yesterday. He is currently comfortable. He denies any significant complaints this morning. PHYSICAL EXAMINATION: Blood pressure is 131/70, heart rate of 64 per minute. Patient is afebrile. Examination shows patient is euvolemic with no evidence of edema in bilateral lower extremities. Abdomen is soft, nontender. Examination of the lower extremities shows no evidence of edema. LABS: Show sodium 134, potassium 4.6, hemoglobin 9.5 g/dL. ASSESSMENT: 1. End-stage renal disease, on hemodialysis on a Monday, , Monday schedule. Patient will be dialyzed tomorrow. 2. Gastrointestinal bleed, currently stable. 3. CKD mineral bone disorder. 4. Hypertension. Blood pressure medications have been reduced, currently stable. 5. History of vasculitis causing acute kidney injury, status post plasmapheresis and Rituxan treatments, currently on prednisone. PLAN: Hemodialysis in a.m. if the patient is still in the hospital. Otherwise, he will come for dialysis tomorrow as outpatient. MMODL / IJN: [id number] /
== END 2018-03-14 14:40 | DRG 380 ==
LOC: EC 13:27 → 3NMEDONC 16:26
PROVIDERS: ADMIT Internal Medicine; ATTEND Internal Medicine
PROC: 5A1D70Z Performance of Urinary Filtration, Intermittent, Less than 6 Hours Per Day (ICD-10-PCS; 2018-03-08)
PROC: 0DB78ZX Excision of Stomach, Pylorus, Via Natural or Artificial Opening Endoscopic, Diagnostic (ICD-10-PCS; 2018-03-09)
PROC: 0DB38ZX Excision of Lower Esophagus, Via Natural or Artificial Opening Endoscopic, Diagnostic (ICD-10-PCS; 2018-03-09)
PROC: 0DB98ZX Excision of Duodenum, Via Natural or Artificial Opening Endoscopic, Diagnostic (ICD-10-PCS; principal; 2018-03-09 13:10)
DX: K22.11 Ulcer of esophagus with bleeding (principal); N18.6 End stage renal disease; D62 Acute posthemorrhagic anemia; I13.2 Hypertensive heart and chronic kidney disease with heart failure and with stage 5 chronic kidney disease, or end stage renal disease; K29.70 Gastritis, unspecified, without bleeding; K29.80 Duodenitis without bleeding; K44.9 Diaphragmatic hernia without obstruction or gangrene; D63.1 Anemia in chronic kidney disease; E03.9 Hypothyroidism, unspecified; E10.22 Type 1 diabetes mellitus with diabetic chronic kidney disease; E10.65 Type 1 diabetes mellitus with hyperglycemia; E78.5 Hyperlipidemia, unspecified; E88.89 Other specified metabolic disorders; G31.9 Degenerative disease of nervous system, unspecified; I35.0 Nonrheumatic aortic (valve) stenosis; I49.1 Atrial premature depolarization; I50.9 Heart failure, unspecified; I77.6 Arteritis, unspecified; K57.30 Diverticulosis of large intestine without perforation or abscess without bleeding; M89.9 Disorder of bone, unspecified; Z79.4 Long term (current) use of insulin; Z79.52 Long term (current) use of systemic steroids; Z79.890 Hormone replacement therapy; Z79.899 Other long term (current) drug therapy; Z82.49 Family history of ischemic heart disease and other diseases of the circulatory system; Z85.46 Personal history of malignant neoplasm of prostate; Z86.010 Personal history of colon polyps; Z87.891 Personal history of nicotine dependence; Z95.2 Presence of prosthetic heart valve; Z96.651 Presence of right artificial knee joint; Z99.2 Dependence on renal dialysis; S91.301D Unspecified open wound, right foot, subsequent encounter; Z87.01 Personal history of pneumonia (recurrent); Z98.42 Cataract extraction status, left eye; Z98.41 Cataract extraction status, right eye; Z90.79 Acquired absence of other genital organ(s); R55 Syncope and collapse
CPT/HCPCS: 36415; 43239; 70450; 71046; 80053; 81001; 82009; 82272; 82550; 82553; 82728; 83036; 83540; 83550; 83735; 84100; 84484; 85025; 85610; 85730; 86850; 86900; 86901; 88305; 88312; 90935; 93005; 93880; 99291

== ENCOUNTER 2018-04-01 18:47 | Emergency (ER) | payer MEDICARE ==
--- NOTE | 2018-04-01 19:08 | ED ---
Neuro HPI - General Chief Complaint: Neuro Symptoms/Deficit Stated Complaint: Altered Time Seen by Provider: 04/01/18 18:47 Source: family, EMS, RN notes reviewed Mode of arrival: EMS Limitations: altered mental status - History of Present Illness Is the patient presenting with stroke symptoms?: Yes Initial Comments: This is a 82-year-old male with a history of heart disease a cholesterol thyroid disease hypertension diabetes and renal failure with dialysis who had the onset around 4 4:30 PM this afternoon of confusion and not acting right. Per paramedics it was slight delays from but nobody was home. Patient did seem confused he was not following commands breaking his usual self. Patient has no prior history of stroke. Patient is unable answer questions appropriately or follow commands upon arrival. No reports of any trauma. His - Related Data Home Medications: Home Medications Medication Instructions Recorded Confirmed Levothyroxine Sodium [Synthroid] 25 mcg PO DAILY 05/05/14 04/01/18 Simvastatin [Zocor] 20 mg PO HS 05/05/14 04/01/18 NIFEdipine [NIFEdipine ER] 90 mg PO DAILY 12/23/17 04/01/18 predniSONE 10 mg PO DAILY 03/28/18 04/01/18 INSULIN ASPART (NovoLOG) [NovoLOG See Protocol SQ ACHS 04/01/18 04/01/18 (formulary)] Previous Rx's Medication Instructions Recorded Insulin Glargine [Lantus] 10 unit SQ HS #1 vial 02/19/18 Carvedilol [Coreg] 6.25 mg PO BID-W/MEALS tab 03/13/18 INSULIN ASPART (NovoLOG) [NovoLOG 5 unit SQ AC-TID vial 03/13/18 (formulary)] Pantoprazole [Protonix] 40 mg PO BID tablet. 03/13/18 Allergies/Adverse Reactions: Allergies Allergy/AdvReac Type Severity Reaction Status Date / Time No Known Allergies Allergy Verified 04/01/18 19:07 Review of Systems ROS Statement: Those systems with pertinent positive or pertinent negative responses have been documented in the HPI. ROS Other: All systems not noted in ROS Statement are negative. Limitations: ROS unobtainable due to patients medical condition General Exam - General Exam Comments Initial Comments: This a well-developed well-nourished awake confused male Limitations: altered mental status General appearance: alert, lethargic, other (Some evidence of a right nasolabial fold flattening) Head exam: Present: atraumatic, normocephalic, normal inspection Eye exam: Present: normal appearance, PERRL, EOMI. Absent: scleral icterus, conjunctival injection, periorbital swelling ENT exam: Present: normal exam, mucous membranes moist Neck exam: Present: normal inspection, full ROM, other. Absent: tenderness, meningismus, lymphadenopathy Respiratory exam: Present: normal lung sounds bilaterally. Absent: respiratory distress, wheezes, rales, rhonchi, stridor Cardiovascular Exam: Present: regular rate, normal rhythm, normal heart sounds. Absent: systolic murmur, diastolic murmur, rubs, gallop, clicks GI/Abdominal exam: Present: soft, normal bowel sounds. Absent: distended, tenderness, guarding, rebound, rigid Extremities exam: Present: full ROM, normal capillary refill, other (A boot on the right lower extremity). Absent: tenderness, pedal edema, joint swelling, calf tenderness Back exam: Present: normal inspection Neurological exam: Present: alert, altered Psychiatric exam: Present: flat affect Skin exam: Present: warm, dry, intact, normal color. Absent: rash Stroke MDM - Lab Data Result diagrams: 04/01/18 20:10 Lab Results 04/01/18 04/01/18 Range/Units 19:15 20:10 WBC 8.1 (3.8-10.6) k/uL RBC 3.67 L (4.30-5.90) m/uL Hgb 10.9 L (13.0-17.5) gm/dL Hct 33.7 L (39.0-53.0) % MCV 91.8 (80.0-100.0) fL MCH 29.7 (25.0-35.0) pg MCHC 32.4 (31.0-37.0) g/dL RDW 16.2 H (11.5-15.5) % Plt Count 226 (150-450) k/uL Neutrophils % 81 % Lymphocytes % 7 % Monocytes % 8 % Eosinophils % 2 % Basophils % 1 % Neutrophils # 6.6 (1.3-7.7) k/uL Lymphocytes # 0.6 L (1.0-4.8) k/uL Monocytes # 0.7 (0-1.0) k/uL Eosinophils # 0.2 (0-0.7) k/uL Basophils # 0.0 (0-0.2) k/uL Anisocytosis Slight POC Glucose (mg/dL) 164 H (75-99) mg/dL POC Glu Neon Tube Bender ID Maddison Whitten - NIH Stroke Scale 1a. Level of Consciousness: (0) alert 1b. LOC Questions: (2) answers no questions correctly 1c. LOC Commands: (2) performs no tasks correctly 2. Best Gaze: (0) normal 3. Visual: (0) no visual loss 4. Facial Palsy: (1) minor paralysis 5a. Motor Arm Left: (0) no drift 5b. Motor Arm Right: (0) no drift 6a. Motor Leg Left: (1) drift 6b. Motor Leg Right: (1) drift 7. Limb Ataxia: (0) absent 8. Sensory: (0) normal 9. Best Language: (2) severe aphasia 10. Dysarthria: (un) intubated/barrier 11. Extinction/Inattention: (0) no abnormality - Thrombolytic Inclusion/Exclusion Thrombolytic Exclusion Criteria: Symptom Onset > 3 Hours - Medical Decision Making Patient is improved. More condescending more awake and alert. Patient will be transferred to [facility]. I did discuss the case with . She is agreed to set the patient transfer. I did discuss the transfer with the patient and his daughter. - EKG Data -: EKG Interpreted by Me (Sinus rhythm rate of 82. 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 ESRD with hemodialysis, current wound on R heel, prostrate cancer with surgery, iron anemia, benign colon polyps, diverticular disease, hypothyroid, aortic stenosis with valve replacement.rt heel wound-goes to [facility] on mon-pt stated dsng changed last 1-30-19 History of Any Multi-Drug Resistant Organisms: None Reported Past Surgical History: Cardiac Valve Replacement, Heart Catheterization, Hernia Repair, Joint Replacement, Prostate Surgery, Tonsillectomy Additional Past Surgical History / Comment(s): R hemodialysis catheter, 2015 aortic valve replaced, prostatectomy, colonoscopy with benign polypectomy, bilateral cataract removals, L eye retinal surgery, total R knee replacement. Past Anesthesia/Blood Transfusion Reactions: No Reported Reaction Past Psychological History: No Psychological Hx Reported Smoking Status: Former smoker - Past Family History Father Family Medical History: No Reported History Additional Family Medical History / Comment(s): age 92.5 years old- from old age Mother Family Medical History: Myocardial Infarction ([place]) Course Vital Signs 04/01/18 04/01/18 04/01/18 18:48 19:15 19:25 Temperature 97.6 F 97.7 F Pulse Rate 85 86 96 Respiratory 18 20 20 Rate Blood Pressure 143/75 158/74 160/76 O2 Sat by Pulse 100 100 100 Oximetry 04/01/18 04/01/18 19:35 19:48 Temperature Pulse Rate 98 88 Respiratory 18 18 Rate Blood Pressure 183/84 173/88 O2 Sat by Pulse 99 100 Oximetry - Reevaluation(s) Reevaluation #1: 04/01/18 20:54 I did initially discuss the case with Dr. Tse from [facility] interventional neurology. Initial CT plane brain was negative for acute findings. CTA was recommended. Reevaluation #2: 04/01/18 20:[address] angios reveals the patient to be more cognizant more awake. I did discuss the case again with Dr. Tse at 2030 5 PM. Patient is currently not a candidate for either TPA or interventional procedure. He will be transferred to [facility] for inpatient treatment has no neurologist available here. Reevaluation #3: 04/01/18 20:59 Patient initially was a nice of 11 he currently is approximately 7 he is more cognizant is answering questions appropriately. Procedures - Procedural Sedation Procedural Sedation Start Time: 19:48 Procedural Sedation Stop Time: 20:19 Indications: diagnostic imaging procedure ASA Class: III Mallampati Airway Score: 2 Preparation: surveillance system monitor applied, pulse oximeter, capnometry used, supplemental O2 applied, reversal agents at bedside, suction/airway equipment at bedside, IV secured IV Propofol Dose (mgs): 140 Complications: hypoventilation Interventions: assist by BVM (Patient did require sedation as he was uncooperative with imaging studies. He did pull out his IV. He did require sedation was given initially 70 mg of propofol. This did work for part of the CT he did require second 70. The procedure was performed successfully he did however develop brief hypoventilation for which she required a BVM. He was repositioned he was assisted and did respond well.) Patient Tolerated Procedure: well Critical Care Time Critical Care Time: 45 minutes of critical care time which does not include the sedation time. Says include initial evaluation with history physical labs x-rays/imaging multiple reevaluation the patient discussed with the neuro interventional is discussion with the ER physician at [facility] review of old charting was available documentation of the above. Disposition Clinical Impression: Cerebrovascular accident, Transient cerebral ischemia, Chronic renal failure syndrome Disposition: ADMITTED IP TO THIS HOSP Condition: Serious Instructions (If sedation given, give patient instructions): Procedural Sedation (ED) Is patient prescribed a controlled substance at d/c from ED?: No Referrals: Jomar Rangel MD [Primary Care Provider] - 1-2 days - Out of Hospital Transfer - Req. Specs Out of Hospital Transfer - Requested Specifics: Other Emergency Center
[2018-04-01] MEDS ORDERED: LORazepam 2 MG/ML INJ IV STA (19:24)
[2018-04-01 19:36] LABS: Glucose,Whole Blood 164 mg/dL (75-99)
[2018-04-01] MEDS ORDERED: PROPOFOL 10 MG/ML 20 ML VIAL IV ONE (19:48)
--- NOTE | 2018-04-01 20:15 | CT ---
EXAMINATION TYPE: CT brain wo con for TPA DATE OF EXAM: 04/01/2018 COMPARISON: 03/07/2018 INDICATION: Neuro changes. DLP: 6004.1 mGycm, Automated exposure control for dose reduction was used. CONTRAST: None CT of the brain is performed utilizing 3 mm thick sections through the posterior fossa and 3 mm thick sections through the remaining calvarium. Study is performed within 24 hours of arrival to the hosp ital. Beam hardening artifact from the mandible maxilla dental work is present No abnormal hyperdensity is present to suggest an acute intracranial hemorrhage. No mass lesion is evident. No acute infarcts are evident. Periventricular white matter hypodensity is present, likely on the bas is of chronic white matter ischemic changes. Ventricles and sulci are appropriate for the patient age. There is a retention cyst within the right maxillary sinus. Paranasal sinuses mastoid air cells are o therwise clear. IMPRESSIONS: 1. Atrophy with periventricular white matter ischemic changes. 2. Examination is stable from comparison.
[2018-04-01 20:24] LABS: Anisocytosis Slight; Basophils % (A) 1 %; Eosinophils # (A) 0.2 k/uL (0-0.7); Eosinophils % (A) 2 %; HCT 33.7 % (39.0-53.0); HGB 10.9 gm/dL (13.0-17.5); Lymphocytes # (A) 0.6 k/uL (1.0-4.8); Lymphocytes % (A) 7 %; MCH 29.7 pg (25.0-35.0); MCHC 32.4 g/dL (31.0-37.0); MCV 91.8 fL (80.0-100.0); Mean Platelet Volume 6.5; Monocytes # (A) 0.7 k/uL (0-1.0); Monocytes % (A) 8 %; Neutrophils # (A) 6.6 k/uL (1.3-7.7); Neutrophils % (A) 81 %; Platelet Count 226 k/uL (150-450); RBC 3.67 m/uL (4.30-5.90); RDW 16.2 % (11.5-15.5); WBC 8.1 k/uL (3.8-10.6)
[2018-04-01 20:33] VITALS: TEMP 97.7
--- NOTE | 2018-04-01 20:54 | CT ---
EXAMINATION TYPE: CT angio head neck DATE OF EXAM: 04/01/2018 HISTORY: Neuro changes. COMPARISON: Ultrasound carotid arteries 03/08/2018 CT DLP: 533.6 mGycm. Automated Exposure Control for Dose Reduction was Utilized. TECHNIQUE: CTA scan of the neck is performed with IV Contrast, patient injected with 65 mL of Isovue 370, axial images are obtained, coronal and sagittal reformatted images are reviewed. Three-D recons tructed images are created on an independent workstation and reviewed. FINDINGS: Carotid/Vascular Structures: There is a three-vessel arch. Common carotid arteries bifurcate normally into internal and external carotid arteries. Note is made of atheromatous calcification at the right and left carotid bifurcations. In the axial plane at the left internal carotid artery origin there appears to be severe stenosis at 72%. This appears less significant in the straight view. This is not abnormal by velocity measurements from the ultrasound. Correlate with the patient's neurologic sympt oms. The internal carotid arteries extend to the telida of [place]. Vertebral arteries are codominant. Other: [place] of [place]: Internal carotid arteries bifurcate normally into A1 and M1 segments. A2 seg ments are normal. Anterior communicating artery is not clearly identified. Posterior communicating ar teries are patent bilaterally. Vertebral basilar system appears normal. Posterior cerebral vasculatur e is normal. No focal stenosis or aneurysm is identified. Three-D reconstructed images performed separately on the [employer] computer by the technologist are pres ented. IMPRESSION: 1. Severe stenosis at the origin of the left internal carotid artery based on measurement calculated to be 72%. Correlate with patient's symptoms. 2. Atheromatous plaquing right internal carotid artery without significant flow-limiting stenosis. 3. Normal telida of Menes[place]
[2018-04-01 21:15] LABS: INR 0.9 (<1.2); Partial Thromboplastin Time 23.7 sec (22.0-30.0); Prothrombin Time 10.2 sec (9.0-12.0)
[2018-04-01 21:17] VITALS: BP 164/87; PULSE 75; RESP 16
[2018-04-01 21:20] LABS: Albumin 3.2 g/dL (3.5-5.0); Calcium 8.1 mg/dL (8.4-10.2); Potassium 3.7 mmol/L (3.5-5.1); Total Bilirubin 0.8 mg/dL (0.2-1.3); Total Protein 5.3 g/dL (6.3-8.2)
[2018-04-01 21:25] LABS: Creatine Kinase <20 U/L (55-170)
[2018-04-01 21:38] LABS: Creatine Kinase MB 0.2 ng/mL (0.0-2.4); Troponin I 0.027 ng/mL (0.000-0.034)
--- NOTE | 2018-04-01 21:40 | XR ---
EXAMINATION TYPE: XR chest 1V portable DATE OF EXAM: 04/01/2018 COMPARISON: 03/07/2018 INDICATION: Altered mental status TECHNIQUE: Single frontal view of the chest is obtained. FINDINGS: The heart size is mildly prominent. The pulmonary vasculature is normal. Mild infiltrate is at the right base. There is a double-lumen catheter present on the right with the tips in the right atrium. No pneumotho rax is evident. IMPRESSION: 1. Mild infiltrate at the right base likely atelectasis.
== END 2018-04-01 21:15 | disposition other institution (70) ==
LOC: EC 18:47
DX: I63.9 Cerebral infarction, unspecified (principal); R29.711 NIHSS score 11; G45.9 Transient cerebral ischemic attack, unspecified; I13.2 Hypertensive heart and chronic kidney disease with heart failure and with stage 5 chronic kidney disease, or end stage renal disease; E11.22 Type 2 diabetes mellitus with diabetic chronic kidney disease; N18.6 End stage renal disease; I50.9 Heart failure, unspecified; E78.5 Hyperlipidemia, unspecified; E03.9 Hypothyroidism, unspecified; I35.0 Nonrheumatic aortic (valve) stenosis; Z99.2 Dependence on renal dialysis; Z85.46 Personal history of malignant neoplasm of prostate; Z95.2 Presence of prosthetic heart valve; Z95.818 Presence of other cardiac implants and grafts; Z96.651 Presence of right artificial knee joint; Z87.891 Personal history of nicotine dependence; Z79.890 Hormone replacement therapy; Z79.52 Long term (current) use of systemic steroids; Z79.4 Long term (current) use of insulin; Z79.899 Other long term (current) drug therapy
CPT/HCPCS: 36415; 80053; 85025; 82550; 82553; 84484; 85610; 85730; 71045; 70496; 70450; 70498; 99291; 99152; 99153; 96374; J2060; J2704; Q9967

== ENCOUNTER 2018-04-08 08:30 | Emergency (ER) | payer MEDICARE ==
--- NOTE | 2018-04-08 08:53 | ED ---
General Adult HPI - General Chief complaint: Fall Stated complaint: FALL Time Seen by Provider: 04/08/18 08:30 Source: patient, RN notes reviewed Mode of arrival: EMS Limitations: no limitations - History of Present Illness Initial comments: This is an 82-year-old male who presents emergency Department because he fell and hit his head. Patient is also on eliquis. Patient states he was in the bathroom and lost his balance and he fell. Patient states he had a stroke about a week ago but he has no residual deficit. Patient states he did not lose consciousness he was not days he currently has no headache. Patient denies any neck pain patient denies any numbness weakness. Patient denied any chest pain anytime he denied any difficulty breathing or shortness of breath per patient denies any other injury. Patient denies any extremity pain. Patient denies abdominal pain patient denies back pain. Patient denies any hip pain. Patient denies any sites of bleeding. Patient is alert and oriented 3. - Related Data Home Medications Medication Instructions Recorded Confirmed Levothyroxine Sodium [Synthroid] 25 mcg PO DAILY 05/05/14 04/01/18 Simvastatin [Zocor] 20 mg PO HS 05/05/14 04/01/18 NIFEdipine [NIFEdipine ER] 90 mg PO DAILY 12/23/17 04/01/18 predniSONE 10 mg PO DAILY 03/28/18 04/01/18 INSULIN ASPART (NovoLOG) [NovoLOG See Protocol SQ ACHS 04/01/18 04/01/18 (formulary)] Previous Rx's Medication Instructions Recorded Insulin Glargine [Lantus] 10 unit SQ HS #1 vial 02/19/18 Carvedilol [Coreg] 6.25 mg PO BID-W/MEALS tab 03/13/18 INSULIN ASPART (NovoLOG) [NovoLOG 5 unit SQ AC-TID vial 03/13/18 (formulary)] Pantoprazole [Protonix] 40 mg PO BID tablet. 03/13/18 Allergies Allergy/AdvReac Type Severity Reaction Status Date / Time No Known Allergies Allergy Verified 04/01/18 19:07 Review of Systems ROS Statement: Those systems with pertinent positive or pertinent negative responses have been documented in the HPI. ROS Other: All systems not noted in ROS Statement are negative. 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 ESRD with hemodialysis, current wound on R heel, prostrate cancer with surgery, iron anemia, benign colon polyps, diverticular disease, hypothyroid, aortic stenosis with valve replacement.rt heel wound-goes to [facility] on mon-pt stated dsng changed last 03-07-18 History of Any Multi-Drug Resistant Organisms: None Reported Past Surgical History: Cardiac Valve Replacement, Heart Catheterization, Hernia Repair, Joint Replacement, Prostate Surgery, Tonsillectomy Additional Past Surgical History / Comment(s): R hemodialysis catheter, 2014 aortic valve replaced, prostatectomy, colonoscopy with benign polypectomy, bilateral cataract removals, L eye retinal surgery, total R knee replacement. Past Anesthesia/Blood Transfusion Reactions: No Reported Reaction Past Psychological History: No Psychological Hx Reported Smoking Status: Former smoker Past Alcohol Use History: None Reported Past Drug Use History: None Reported - Past Family History Father Family Medical History: No Reported History Additional Family Medical History / Comment(s): age 92.5 years old- from old age Mother Family Medical History: Myocardial Infarction ([place]) General Exam - General Exam Comments Initial Comments: GENERAL: Patient is well-developed and well-nourished. Patient is nontoxic and well- hydrated and is in no acute distress. She has a small abrasion to the right parietal region it is nontender to palpation ENT: Neck is soft and supple. No significant lymphadenopathy is noted. Neck has full range of motion without eliciting any pain. EYES: The sclera were anicteric and conjunctiva were pink and moist. Extraocular movements were intact and pupils were equal round and reactive to light. Eyelids were unremarkable. PULMONARY: Unlabored respirations. Good breath sounds bilaterally. No audible rales rhonchi or wheezing was noted. CARDIOVASCULAR: There is a regular rate and rhythm without any murmurs gallops or rubs. ABDOMEN: Soft and nontender with normal bowel sounds. No palpable organomegaly was noted. There is no palpable pulsatile mass. SKIN: Skin is clear with no lesions or rashes and otherwise unremarkable. NEUROLOGIC: Patient is alert and oriented x3. Cranial nerves II through XII are grossly intact. Motor and sensory are also intact. Normal speech, volume and content. Symmetrical smile. MUSCULOSKELETAL: Normal extremities with adequate strength and full range of motion. No lower extremity swelling or edema. No calf tenderness. LYMPHATICS: No significant lymphadenopathy is noted PSYCHIATRIC: Normal psychiatric evaluation. Limitations: no limitations Course Vital Signs 04/08/18 08:37 Temperature 98.4 F Pulse Rate 84 Respiratory 18 Rate Blood Pressure 129/77 O2 Sat by Pulse 100 Oximetry Medical Decision Making - Medical Decision Making CT of the brain and C-spine showed no acute abnormality. Disposition Clinical Impression: Fall, Scalp abrasion Disposition: HOME SELF-CARE Instructions (If sedation given, give patient instructions): Head Injury (ED) Is patient prescribed a controlled substance at d/c from ED?: No Referrals: Jomar Rangel MD [Primary Care Provider] - 1-2 days Time of Disposition: 09:41
--- NOTE | 2018-04-08 09:38 | CT ---
EXAMINATION TYPE: CT brain floine wo con DATE OF EXAM: 04/08/2018 COMPARISON: Brain 04/01/2018 HISTORY: 82-year-old male with loss of consciousness after Fall CT DLP: 1466.6 mGycm Automated exposure control for dose reduction was used. Technique: Examination of the head was done in axial plane without intravenous contrast. Coronal and sagittal reconstructions performed. CT of the cervical spine was obtained in axial plane without intravenous injection of contrast mater ial. Coronal and sagittal reformatted images were obtained from the axial views for evaluation of f ractures, spinal alignment and canal. FINDINGS: Head: There is no evidence of acute intracranial hemorrhage, acute ischemic changes, mass, mass-effect, or extra-axial fluid collection. There is no effacement of cerebral sulci or basal subarachnoid cister ns. There is no hydrocephalus. There is no midline shift. Victoria-white matter distinction is preserv ed. Mild to moderate generalized supratentorial volume loss and mild patchy white matter hypodensities in both cerebral hemispheres. Orbits and globes are intact. Paranasal sinuses and mastoid air cells well pneumatized. No calvarial fracture. Cervical spine: Right-sided hemodialysis catheter. Old left clavicular shaft fracture deformity. Emphysematous change in the upper lungs. No craniocervical junction abnormality, predental space widening, or prevertebral soft tissue swellin g. Degenerative changes at the C1 dens articulation. Mild to moderate degenerative disc disease throughout. Posterior disc bulge mildly narrowing the spin al canal at C3-C4. Assessment of the spinal canal from C4-C5 and below is limited due to artifact fro m the patient's shoulders. At C3-C4, there is moderate to severe left and moderate right neuroforaminal narrowing. Alignment is maintained. No acute fracture seen. Moderate atherosclerotic calcifications at the left greater than right carotid bifurcations. Sagittal and coronal reformatted images confirm above findings. COMBINED IMPRESSION: 1. No acute intracranial abnormality seen. Similar [id number] atrophy and changes of chronic sm all vessel ischemic disease. 2. No acute fracture or malalignment of the cervical spine. Degenerative changes as above.
[2018-04-08 10:16] VITALS: BP 153/86; PULSE 73; RESP 16; TEMP 98
== END 2018-04-08 10:56 | disposition home or self-care (01) ==
LOC: EC 08:30
DX: S00.01XA Abrasion of scalp, initial encounter (principal); E11.22 Type 2 diabetes mellitus with diabetic chronic kidney disease; I13.2 Hypertensive heart and chronic kidney disease with heart failure and with stage 5 chronic kidney disease, or end stage renal disease; I50.9 Heart failure, unspecified; N18.6 End stage renal disease; Z99.2 Dependence on renal dialysis; E78.5 Hyperlipidemia, unspecified; E03.9 Hypothyroidism, unspecified; Z85.46 Personal history of malignant neoplasm of prostate; Z86.73 Personal history of transient ischemic attack (TIA), and cerebral infarction without residual deficits; Z87.891 Personal history of nicotine dependence; Z79.4 Long term (current) use of insulin; Z79.52 Long term (current) use of systemic steroids; Z79.890 Hormone replacement therapy; Z79.01 Long term (current) use of anticoagulants; Z79.899 Other long term (current) drug therapy; Z95.818 Presence of other cardiac implants and grafts; Z95.2 Presence of prosthetic heart valve; Z96.651 Presence of right artificial knee joint; Z98.41 Cataract extraction status, right eye; Z98.42 Cataract extraction status, left eye; W19.XXXA Unspecified fall, initial encounter; W22.8XXA Striking against or struck by other objects, initial encounter; Y92.002 Bathroom of unspecified non-institutional (private) residence as the place of occurrence of the external cause
CPT/HCPCS: 70450; 72125; 99284

== ENCOUNTER 2018-04-14 17:11 | Emergency (ER) | payer MEDICARE ==
[2018-04-14 17:20] VITALS: RESP 18; TEMP 97.8
--- NOTE | 2018-04-14 18:17 | ED ---
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 Onset of symptoms was around 4:30. Patient did have a stroke 13 days ago. Patient symptoms have essentially resolved following that episode. Today patient had an episode where he was less responsive however never lost consciousness. Patient was not responding appropriately and seemed confused. Patient symptoms have dramatically improved. Boiler Engineer didn't feel patient had weakness of his left arm and patient states he did not feel well at that time. At this time patient states he feels well and does not have any complaints. Boiler Engineer states usually patient is able to say what year it is. - Related Data Home Medications Medication Instructions Recorded Confirmed Levothyroxine Sodium [Synthroid] 25 mcg PO DAILY 05/05/14 04/14/18 Simvastatin [Zocor] 20 mg PO HS 05/05/14 04/14/18 Apixaban [Eliquis] 2.5 mg PO BID 04/08/18 04/14/18 Metoprolol Succinate [Toprol XL] 25 mg PO DAILY 04/08/18 04/14/18 NIFEdipine XL [Procardia XL] 60 mg PO DAILY 04/08/18 04/14/18 Leptospermum Honey Paste 100% 1 applic TOPICAL DAILY 04/14/18 04/14/18 Pantoprazole [Protonix] 40 mg PO DAILY 04/14/18 04/14/18 Previous Rx's Medication Instructions Recorded Insulin Glargine [Lantus] 10 unit SQ HS #1 vial 02/19/18 INSULIN ASPART (NovoLOG) [NovoLOG 5 unit SQ AC-TID vial 03/13/18 (formulary)] Allergies Allergy/AdvReac Type Severity Reaction Status Date / Time No Known Allergies Allergy Verified 04/14/18 18:00 Review of Systems ROS Statement: Those systems with pertinent positive or pertinent negative responses have been documented in the HPI. ROS Other: All systems not noted in ROS Statement are negative. Constitutional: Denies: fever Eyes: Denies: eye pain ENT: Denies: ear pain Respiratory: Denies: cough Cardiovascular: Denies: chest pain Endocrine: Denies: fatigue Gastrointestinal: Denies: abdominal pain Genitourinary: Denies: dysuria Musculoskeletal: Denies: back pain Skin: Denies: rash Neurological: Reports: as per HPI Past Medical History Past Medical History: Atrial Fibrillation, Cancer, Heart Failure, CVA/TIA, Diabetes Mellitus, Hyperlipidemia, Hypertension, Pneumonia, Prostate Disorder, Renal Disease, Thyroid Disorder Additional Past Medical History / Comment(s): hypoglycemia, pneumonia, anemia ,(per previous charting-acute kidney injury 2ndary to ATN 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 ESRD with hemodialysis, current wound on R heel, prostrate cancer with surgery, iron anemia, benign colon polyps, diverticular disease, hypothyroid, aortic stenosis with valve replacement.rt heel wound-goes to [facility] on mon- stated dsng changed last 03-07-18 History of Any Multi-Drug Resistant Organisms: None Reported Past Surgical History: Cardiac Valve Replacement, Heart Catheterization, Hernia Repair, Joint Replacement, Prostate Surgery, Tonsillectomy Additional Past Surgical History / Comment(s): R hemodialysis catheter, 2014 aortic valve replaced, prostatectomy, colonoscopy with benign polypectomy, bilateral cataract removals, L eye retinal surgery, total R knee replacement. Past Anesthesia/Blood Transfusion Reactions: No Reported Reaction Past Psychological History: No Psychological Hx Reported Smoking Status: Former smoker Past Alcohol Use History: None Reported Past Drug Use History: None Reported - Past Family History Father Family Medical History: No Reported History Additional Family Medical History / Comment(s): age 92.5 years old- from old age Mother Family Medical History: Myocardial Infarction ([place]) General Exam Limitations: no limitations General appearance: alert, in no apparent distress Head exam: Present: atraumatic Eye exam: Present: normal appearance, PERRL, EOMI. Absent: nystagmus ENT exam: Present: normal oropharynx Neck exam: Present: normal inspection Respiratory exam: Present: normal lung sounds bilaterally Cardiovascular Exam: Present: regular rate, normal rhythm GI/Abdominal exam: Present: soft. Absent: tenderness Extremities exam: Present: normal inspection. Absent: pedal edema, calf tenderness Neurological exam: Present: alert, CN II-XII intact. Absent: motor sensory deficit Expanded Neurological exam: Present: protecting the airway Patient oriented to: Present: person, place. Absent: time Cranial nerves: EOM's Intact: Normal, Facial Sensation: Normal Sensory exam: Upper Extremity Light Touch: Normal, Lower Extremity Light Touch: Normal Motor strength exam: RUE: 5, LUE: 5, RLE: 5, LLE: 5 Eye Response: (4) open spontaneously Motor Response: (6) obeys commands Verbal Response: (3) inappropriate words Psychiatric exam: Present: normal affect, normal mood Skin exam: Present: normal color Course Vital Signs 04/14/18 04/14/18 04/14/18 17:14 17:17 17:30 Temperature 97.8 F Pulse Rate 68 69 Respiratory 18 7 L Rate Blood Pressure 135/78 135/78 139/79 O2 Sat by Pulse 98 100 100 Oximetry 04/14/18 04/14/18 04/14/18 17:45 18:00 18:15 Temperature Pulse Rate 64 68 67 Respiratory 7 L 18 10 L Rate Blood Pressure 149/78 146/77 150/85 O2 Sat by Pulse 100 100 100 Oximetry 04/14/18 04/14/18 04/14/18 18:30 18:45 19:15 Temperature Pulse Rate 70 64 63 Respiratory 9 L 10 L 2 L Rate Blood Pressure 154/109 157/89 O2 Sat by Pulse 99 100 100 Oximetry 04/14/18 19:30 Temperature Pulse Rate 69 Respiratory 18 Rate Blood Pressure 164/85 O2 Sat by Pulse 100 Oximetry - Reevaluation(s) Reevaluation #1: 04/14/18 18:12 Patient is not felt to be a good candidate for TPA secondary to warnings: recent stroke less than 2 weeks, recent fall and head injury, age greater than 77. In addition patient has minimal symptoms and symptoms have already started to i mprove. EKG Findings - EKG Comments: EKG Findings:: Sinus rhythm at 64. For screening AV block with a [place] of 228. QRS 96. QT 456. QTc 470. Left axis. LVH. No acute ST change. Medical Decision Making - Medical Decision Making Patient reevaluated and is further improved however stamps or coins salesperson feels he is not completely back to baseline. Patient is still not able to orient 2 year. Patient and stamps or coins salesperson updated on results and plan. Patient will be transferred secondary to no neurology available at our institution. Patient previously has been at [facility]. Case was discussed with Dr. Aguirre at [facility], who will accept transfer. - Lab Data Result diagrams: 04/14/18 18:45 04/14/18 18:45 Lab Results 04/14/18 04/14/18 04/14/18 Range/Units 18:45 18:45 18:45 WBC 6.8 (3.8-10.6) k/uL RBC 4.14 L (4.30-5.90) m/uL Hgb 12.1 L (13.0-17.5) gm/dL Hct 36.9 L (39.0-53.0) % MCV 89.0 (80.0-100.0) fL MCH 29.3 (25.0-35.0) pg MCHC 32.9 (31.0-37.0) g/dL RDW 15.4 (11.5-15.5) % Plt Count 196 (150-450) k/uL Neutrophils % 77 % Lymphocytes % 12 % Monocytes % 7 % Eosinophils % 3 % Basophils % 1 % Neutrophils # 5.3 (1.3-7.7) k/uL Lymphocytes # 0.8 L (1.0-4.8) k/uL Monocytes # 0.5 (0-1.0) k/uL Eosinophils # 0.2 (0-0.7) k/uL Basophils # 0.1 (0-0.2) k/uL PT 10.2 (9.0-12.0) sec INR 0.9 (<1.2) APTT 26.5 (22.0-30.0) sec Sodium 135 L (137-145) mmol/L Potassium 4.2 (3.5-5.1) mmol/L Chloride 96 L (98-107) mmol/L Carbon Dioxide 30 (22-30) mmol/L Anion Gap 9 mmol/L BUN 14 (9-20) mg/dL Creatinine 2.69 H (0.66-1.25) mg/dL Est GFR (CKD-EPI)AfAm 25 (>60 ml/min/1.73 sqM) Est GFR (CKD-EPI)NonAf 21 (>60 ml/min/1.73 sqM) Glucose 248 H (74-99) mg/dL Calcium 8.4 (8.4-10.2) mg/dL Total Bilirubin 0.4 (0.2-1.3) mg/dL AST 15 L (17-59) U/L ALT 23 (21-72) U/L Alkaline Phosphatase 63 (38-126) U/L Troponin I (0.000-0.034) ng/mL Total Protein 5.8 L (6.3-8.2) g/dL Albumin 3.4 L (3.5-5.0) g/dL 04/14/18 Range/Units 18:45 WBC (3.8-10.6) k/uL RBC (4.30-5.90) m/uL Hgb (13.0-17.5) gm/dL Hct (39.0-53.0) % MCV (80.0-100.0) fL MCH (25.0-35.0) pg MCHC (31.0-37.0) g/dL RDW (11.5-15.5) % Plt Count (150-450) k/uL Neutrophils % % Lymphocytes % % Monocytes % % Eosinophils % % Basophils % % Neutrophils # (1.3-7.7) k/uL Lymphocytes # (1.0-4.8) k/uL Monocytes # (0-1.0) k/uL Eosinophils # (0-0.7) k/uL Basophils # (0-0.2) k/uL PT (9.0-12.0) sec INR (<1.2) APTT (22.0-30.0) sec Sodium (137-145) mmol/L Potassium (3.5-5.1) mmol/L Chloride (98-107) mmol/L Carbon Dioxide (22-30) mmol/L Anion Gap mmol/L BUN (9-20) mg/dL Creatinine (0.66-1.25) mg/dL Est GFR (CKD-EPI)AfAm (>60 ml/min/1.73 sqM) Est GFR (CKD-EPI)NonAf (>60 ml/min/1.73 sqM) Glucose (74-99) mg/dL Calcium (8.4-10.2) mg/dL Total Bilirubin (0.2-1.3) mg/dL AST (17-59) U/L ALT (21-72) U/L Alkaline Phosphatase (38-126) U/L Troponin I 0.020 (0.000-0.034) ng/mL Total Protein (6.3-8.2) g/dL Albumin (3.5-5.0) g/dL - Radiology Data Radiology results: report reviewed (Computed tomography scan of the brain shows no acute intercranial hemorrhage or shift. Diffuse age-related atrophy and chronic small vessel ischemic changes noted.), image reviewed (Chest x-ray shows no acute process) Disposition Clinical Impression: Cerebrovascular accident Disposition: OTHER INSTITUTION NOT DEFINED Is patient prescribed a controlled substance at d/c from ED?: No Referrals: Jomar Rangel MD [Primary Care Provider] - 1-2 days Time of Disposition: 20:39 - Out of Hospital Transfer - Req. Specs Out of Hospital Transfer - Requested Specifics: Other Emergency Center
[2018-04-14 19:14] LABS: Albumin 3.4 g/dL (3.5-5.0); Calcium 8.4 mg/dL (8.4-10.2); Potassium 4.2 mmol/L (3.5-5.1); Total Bilirubin 0.4 mg/dL (0.2-1.3); Total Protein 5.8 g/dL (6.3-8.2)
--- NOTE | 2018-04-14 19:14 | CT ---
EXAMINATION TYPE: CT brain wo con for TPA DATE OF EXAM: 04/14/2018 COMPARISON: 04/08/2018 HISTORY: Neuro deficits CT DLP: 1127.4 mGycm Automated exposure control for dose reduction was used. TECHNIQUE: CT scan of the head is performed without contrast. FINDINGS: There is no acute intracranial hemorrhage or midline shift identified. There is diffuse v entricular and sulcal prominence consistent with diffuse age-related cerebral atrophy. There is low- attenuation in the periventricular white matter consistent with chronic small vessel ischemic change. The globes are intact and right maxillary mucosal retention cyst measures 1.5 cm. Smaller medial wa ll mucosal retention cyst is also seen. Remaining paranasal sinuses and mastoid air cells are well ae rated. IMPRESSION: No acute intracranial hemorrhage or midline shift. There is diffuse age-related cerebra l atrophy and chronic small vessel ischemic change noted.
--- NOTE | 2018-04-14 19:15 | XR ---
EXAMINATION TYPE: XR chest 2V DATE OF EXAM: 04/14/2018 COMPARISON: 04/01/2018 HISTORY: Weakness after hemodialysis TECHNIQUE: Frontal and lateral views of the chest are obtained. FINDINGS: Post CABG changes of the chest are seen. Heart is upper limits of normal size. Hemodialysi s catheter is appreciated terminating in the cavoatrial junction. No sizable pleural effusion or pneu mothorax. Chronic deformity of the left mid clavicle is seen from prior fracture. No interstitial norman ma. Senescent parenchymal changes again noted. Diffuse osseous demineralization is present. IMPRESSION: Chronic changes with no acute cardiopulmonary process.
[2018-04-14 19:19] LABS: Basophils # (A) 0.1 k/uL (0-0.2); Basophils % (A) 1 %; Eosinophils # (A) 0.2 k/uL (0-0.7); Eosinophils % (A) 3 %; HCT 36.9 % (39.0-53.0); HGB 12.1 gm/dL (13.0-17.5); Lymphocytes # (A) 0.8 k/uL (1.0-4.8); Lymphocytes % (A) 12 %; MCH 29.3 pg (25.0-35.0); MCHC 32.9 g/dL (31.0-37.0); Mean Platelet Volume 6.7; Monocytes # (A) 0.5 k/uL (0-1.0); Monocytes % (A) 7 %; Neutrophils # (A) 5.3 k/uL (1.3-7.7); Neutrophils % (A) 77 %; Platelet Count 196 k/uL (150-450); RBC 4.14 m/uL (4.30-5.90); RDW 15.4 % (11.5-15.5); WBC 6.8 k/uL (3.8-10.6)
[2018-04-14 19:25] LABS: INR 0.9 (<1.2); Partial Thromboplastin Time 26.5 sec (22.0-30.0); Prothrombin Time 10.2 sec (9.0-12.0)
[2018-04-14 21:14] VITALS: BP 164/92; PULSE 64
== END 2018-04-14 21:32 | disposition other institution (70) ==
LOC: EC 17:11
DX: I63.9 Cerebral infarction, unspecified (principal); R29.702 NIHSS score 2; I48.91 Unspecified atrial fibrillation; E78.5 Hyperlipidemia, unspecified; I13.2 Hypertensive heart and chronic kidney disease with heart failure and with stage 5 chronic kidney disease, or end stage renal disease; N18.6 End stage renal disease; I50.9 Heart failure, unspecified; E03.9 Hypothyroidism, unspecified; I35.0 Nonrheumatic aortic (valve) stenosis; Z99.2 Dependence on renal dialysis; Z85.46 Personal history of malignant neoplasm of prostate; Z86.73 Personal history of transient ischemic attack (TIA), and cerebral infarction without residual deficits; Z95.2 Presence of prosthetic heart valve; Z95.818 Presence of other cardiac implants and grafts; Z90.79 Acquired absence of other genital organ(s); Z96.651 Presence of right artificial knee joint; Z87.891 Personal history of nicotine dependence; Z79.890 Hormone replacement therapy; Z79.01 Long term (current) use of anticoagulants; Z79.899 Other long term (current) drug therapy
CPT/HCPCS: 36415; 70450; 71046; 80053; 84484; 85025; 85610; 85730; 93005; 99285

== ENCOUNTER → 2018-04-18 | Outpatient (CLI) | payer MEDICARE ==
--- NOTE | 2018-04-25 11:12 | P.ARTDOP ---
Arterial Doppler LOWER EXTREMITY ARTERIAL DOPPLER: DATE OF SERVICE: 04/18/2018 Reason for study: Right foot ulcer. Doppler waveforms: Multiphasic bilaterally throughout. Pulse volume recording: Normal configuration. Pressure gradients: None. Ankle-brachial indices: Cannot be occluded. Toe pressures: 123 on the right, 1:15 on the left Impression: Normal flow pattern. Lack of ability to occlude distally at the ankle level suggests some calcific wall disease which is not hemodynamically significant. Clinical correlation recommended..
== END ==
LOC: RADUSWWP 13:33
PROVIDERS: ATTEND Thoracic Surgery (Cardiothoracic Vascular Surgery)
DX: M79.604 Pain in right leg (principal); M79.605 Pain in left leg
CPT/HCPCS: 93923

== ENCOUNTER 2018-04-25 05:35 | Inpatient (IN) | payer MEDICARE ==
--- NOTE | 2018-04-25 06:10 | XR ---
EXAM: XR Right Hip With Pelvis When Performed, 1 View CLINICAL HISTORY: ITS.REASON XR Reason: fall, pain TECHNIQUE: Frontal view of the right hip, with pelvis when performed. COMPARISON: No relevant prior studies available. FINDINGS: Bones/joints: Displaced subcapital fracture at the right femoral neck. No dislocation. Soft tissues: Unremarkable. IMPRESSION: Displaced subcapital fracture at the right femoral neck.
[2018-04-25] MEDS ORDERED: MORPHINE SULFATE 4 MG/ML SYRINGE IVP STA (06:35)
--- NOTE | 2018-04-25 06:37 | ED ---
Fall HPI - General Chief Complaint: Fall Stated Complaint: Fall Time Seen by Provider: 04/25/18 05:39 Source: patient Mode of arrival: EMS - History of Present Illness Initial Comments: Gerson is a pleasant 82-year-old gentleman with multiple medical comorbidities is documented below. Patient presents the ED this morning via EMS for evaluation of right-sided hip pain. Patient reports that this morning he was walking through his kitchen he was attempting to plug in his electric razor when he lost his footing and fell. He immediately experienced pain in his right hip he was unable to get up or ambulate. EMS was contacted. Upon arrival to the hospital patient complains only of right-sided hip pain and discomfort from the cervical collar. Patient did not strike his head he does not have a headache or vision changes he denies any neck pain. Patient does have end-stage renal disease on dialysis his last dialysis was yesterday afternoon. - Related Data Home Medications Medication Instructions Recorded Confirmed Levothyroxine Sodium [Synthroid] 25 mcg PO DAILY 05/05/14 04/18/18 Simvastatin [Zocor] 20 mg PO HS 05/05/14 04/18/18 Apixaban [Eliquis] 2.5 mg PO BID 04/08/18 04/18/18 Metoprolol Succinate [Toprol XL] 25 mg PO DAILY 04/08/18 04/18/18 NIFEdipine XL [Procardia XL] 60 mg PO DAILY 04/08/18 04/18/18 Previous Rx's Medication Instructions Recorded Insulin Glargine [Lantus] 10 unit SQ HS #1 vial 02/19/18 INSULIN ASPART (NovoLOG) [NovoLOG 5 unit SQ AC-TID vial 03/13/18 (formulary)] Allergies Allergy/AdvReac Type Severity Reaction Status Date / Time No Known Allergies Allergy Verified 04/18/18 14:46 Review of Systems ROS Statement: Those systems with pertinent positive or pertinent negative responses have been documented in the HPI. ROS Other: All systems not noted in ROS Statement are negative. 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 ESRD with hemodialysis, current wound on R heel, prostrate cancer with surgery, iron anemia, benign colon polyps, diverticular disease, hypothyroid, aortic stenosis with valve replacement.rt heel wound-goes to [facility] on mon-pt stated dsng changed last 03-07-18 History of Any Multi-Drug Resistant Organisms: None Reported Past Surgical History: Cardiac Valve Replacement, Heart Catheterization, Hernia Repair, Joint Replacement, Prostate Surgery, Tonsillectomy Additional Past Surgical History / Comment(s): R hemodialysis catheter, 2014 aortic valve replaced, prostatectomy, colonoscopy with benign polypectomy, bilateral cataract removals, L eye retinal surgery, total R knee replacement. Past Anesthesia/Blood Transfusion Reactions: No Reported Reaction Past Psychological History: No Psychological Hx Reported Smoking Status: Former smoker Past Alcohol Use History: None Reported Past Drug Use History: None Reported - Past Family History Father Family Medical History: No Reported History Additional Family Medical History / Comment(s): age 92.5 years old- from old age Mother Family Medical History: Myocardial Infarction ([place]) General Exam - General Exam Comments Initial Comments: Physical Exam GENERAL: Chronically ill-appearing elderly male who appears uncomfortable HENT: Normocephalic, Atraumatic. EYES: PERRL, EOMI PULMONARY: Unlabored respirations. No audible rales rhonchi or wheezing was noted. CARDIOVASCULAR: There is a regular rate and rhythm without any murmurs gallops or rubs. ABDOMEN: Soft and nontender with normal bowel sounds. SKIN: Skin is clear with no lesions or rashes and otherwise unremarkable. Dialysis port in the right upper chest : Deferred NEUROLOGIC: Patient is alert and oriented x3 MUSCULOSKELETAL: Decreased range of motion of the right hip secondary to pain PSYCHIATRIC: Normal psychiatric evaluation. Limitations: no limitations Limitations: no limitations Course Vital Signs 04/25/18 05:39 Temperature 97.8 F Pulse Rate 73 Respiratory 16 Rate Blood Pressure 112/72 O2 Sat by Pulse 99 Oximetry Medical Decision Making - Medical Decision Making Patient was seen and evaluated history was obtained from patient Patient with significant pain in the right hip after a slip and fall at home. Follow was mechanical in nature is no component of syncope X-ray does confirm a right-sided hip fracture Further trauma labs were ordered Patient care was discussed with orthopedics and call Dr. Valdivia who requests that based on the patient's multiple medical comorbidities he be admitted to medicine with orthopedics on consult. Patient care was discussed with patient's primary care provider Dr. Rangel who accepts the admission. Patient was updated on findings and plan. Disposition Clinical Impression: Femoral neck fracture, ESRD (end stage renal disease) Disposition: ADMITTED IP TO THIS HOSP Condition: Stable Is patient prescribed a controlled substance at d/c from ED?: No Referrals: Jomar Rangel MD [Primary Care Provider] - 1-2 days
[2018-04-25] MEDS ORDERED: MORPHINE SULFATE 4 MG/ML SYRINGE IV PRN (06:43)
[2018-04-25] MEDS ORDERED: NALOXONE 0.4 MG/ML 1 ML VIAL IV PRN ×2 (06:43→16:18)
[2018-04-25 07:06] LABS: Basophils # (A) 0.1 k/uL (0-0.2); Basophils % (A) 1 %; Eosinophils # (A) 0.2 k/uL (0-0.7); Eosinophils % (A) 2 %; HCT 35.2 % (39.0-53.0); HGB 11.4 gm/dL (13.0-17.5); Lymphocytes # (A) 0.9 k/uL (1.0-4.8); Lymphocytes % (A) 9 %; MCH 28.5 pg (25.0-35.0); MCHC 32.4 g/dL (31.0-37.0); MCV 87.9 fL (80.0-100.0); Mean Platelet Volume 6.9; Monocytes # (A) 0.9 k/uL (0-1.0); Monocytes % (A) 9 %; Neutrophils % (A) 78 %; Platelet Count 387 k/uL (150-450); RDW 15.5 % (11.5-15.5); WBC 10.2 k/uL (3.8-10.6)
[2018-04-25 07:17] LABS: Potassium 4.1 mmol/L (3.5-5.1)
[2018-04-25 07:18] LABS: INR 0.9 (<1.2); Partial Thromboplastin Time 24.4 sec (22.0-30.0)
[2018-04-25 07:59] LABS: Glucose,Whole Blood 104 mg/dL (75-99)
--- NOTE | 2018-04-25 08:03 | XR ---
EXAMINATION TYPE: XR pelvis AP view DATE OF EXAM: 04/25/2018 CLINICAL HISTORY: Pelvic pain after fall injury. TECHNIQUE: 3 AP images of the pelvis are obtained. COMPARISON: Right hip x-ray earlier today. FINDINGS: Osseous structures are demineralized. Impacted displaced subcapital fracture right proximal femur is redemonstrated. Sacroiliac joints are maintained. No additional acute fracture or dislocati on is evident. Moderate to severe narrowing both hip joints, right greater than left is noted. Lucy us surgical clips overlie the bilateral pelvis. IMPRESSION: There is redemonstration of impacted displaced subcapital fracture right proximal femur. No additional acute pelvic fracture or dislocation is seen.
--- NOTE | 2018-04-25 08:07 | XR ---
EXAMINATION TYPE: XR chest 1V portable DATE OF EXAM: 04/25/2018 HISTORY: Shortness of breath. COMPARISON: 04/14/2018 TECHNIQUE: Single view of the chest is submitted. FINDINGS: Demonstrated are scattered senescent parenchymal change. There is no evidence for focal infiltrate. The heart is stable. Double lumen central venous line noted. Hilar and mediastinal structures are within normal limits. Degenerative changes are seen of the dorsal spine. IMPRESSION: 1. Chronic changes without evidence for acute pulmonary disease.
[2018-04-25 08:18] LABS: AST 16 U/L (17-59); Albumin 3.3 g/dL (3.5-5.0); Alkaline Phosphatase 59 U/L (38-126); Anion Gap 9 mmol/L; Blood Urea Nitrogen 20 mg/dL (9-20); Calcium 8.9 mg/dL (8.4-10.2); Carbon Dioxide 30 mmol/L (22-30); Chloride 99 mmol/L (98-107); Glucose 103 mg/dL (74-99); Sodium 138 mmol/L (137-145); Total Bilirubin 0.4 mg/dL (0.2-1.3); Total Protein 5.6 g/dL (6.3-8.2)
[2018-04-25 08:19] LABS: ALT 24 U/L (21-72); Alcohol <10 mg/dL
[2018-04-25 08:20] VITALS: BMI 27.6
[2018-04-25] MEDS: METOPROLOL SUCCINATE (ER) 25 MG TAB.ER.24H PO SCH (10:58)
--- NOTE | 2018-04-25 11:11 | CONS ---
CONSULTATION Mr. Delvalle is an 82-year-old gentleman who is seen for cardiac evaluation. Patient's chart reviewed. Patient is rather unreliable historian. The patient gives a history that this morning he was walking through his kitchen and he was attempting to plug his electric razor when he lost his balance and fell down and has been admitted with hip fracture. The patient has a known history of aortic stenosis with aortic valve replacement in 2014. The patient also has a history of end-stage renal disease and has been on dialysis for the last 3 to 4 months. Patient denies any history suggestive of angina at present. Patient denies any history of orthopnea or PND. His physical activities are limited. The patient does have his past history of atrial fibrillation. Last EKG done in the medical record shows a normal sinus rhythm. PAST MEDICAL HISTORY: Past medical history includes this patient has a history of end-stage renal disease, aortic valve replacement, hernia repair, joint replacement, total knee replacement. SMOKING STATUS: Patient is a former smoker. MEDICATIONS: Patient's home medications include Synthroid 25 mcg daily, Zocor 20 mg daily, Eliquis once a day, Toprol XL 25 mg daily. Procardia 60 mg daily, Lantus insulin and NovoLog. PHYSICAL EXAMINATION: physical examination at present reveals an 82-year-old gentleman who does not appear to be in any acute distress. He is obesely built. Patient's blood pressure is 159/72 mmHg. HEENT examination is negative. Neck is supple. There is no increase in jugular venous pressure. Both the carotid pulses are felt. There is no bruit. Chest is symmetrical. HEART: The PMI is not felt. First and second heart sounds are heard. Bioprosthetic sounds are well heard. Lungs are clear to auscultation and percussion. Abdomen is soft. EXTREMITIES: Peripheral pulsations are 2+. Patient had a echocardiogram done which revealed normal left ventricular systolic function and normally functioning aortic valve. Patient's chest x-ray is normal. We do not have any EKG available at present. FINAL IMPRESSION: 1. This patient is admitted with hip fracture. 2. Patient is status post aortic valve replacement. Patient's echocardiogram is done. Clinically, there is no evidence of any overt left ventricular failure. The patient is not having any symptoms of unstable angina. 3. The patient has a end-stage renal disease and diabetes. 4. The patient has multiple clinical risk factors and so he is considered at high risk, but no absolute contraindication. The patient did take his Eliquis last night, so we might have to wait at least for 24 to 48 hours. We will notify the orthopedic surgeons. 5. EKG will be done and we will resume the patient's nifedipine, Procardia. GERDA / VANGIE: [id number] /
[2018-04-25 11:27] LABS: Glucose,Whole Blood 88 mg/dL (75-99)
--- NOTE | 2018-04-25 11:33 | P.NPCON ---
History of Present Illness - Reason for Consult end stage renal disease - History of Present Illness Reason for consultation: End-stage renal disease History of present illness: Patient is a 82-year-old male seen in consultation for end-stage renal disease. He is maintained on hemodialysis on a Monday schedule. 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 Patient presented to the hospital after sustaining a fall yesterday. Patient states he was trying to plug in his razor and fell. Patient noticed pain in his right hip and was unable to get up. Imaging reveals displaced subcapital fracture of the right proximal femur. He is scheduled for surgery possibly today. Currently resting in bed. Hemodynamically stable. No vomiting or diarrhea. No fever or chills. Last hemodialysis was yesterday. No abdominal pain. Oral intake is fair. Patient denies dizziness or syncopal episodes. Vital signs are stable. General: The patient appeared well nourished and normally developed. HEENT: Head exam is unremarkable. Neck is without jugular venous distension. LUNGS: Lungs are clear to auscultation and percussion. Breath sounds decreased. HEART: Rate and Rhythm are regular. First and second heart sounds normal. No murmurs, rubs or gallops. ABDOMEN: Abdominal exam reveals normal bowel sounds. Non-tender and non- distended. No evidence of peritonitis. EXTREMITITES: No clubbing, cyanosis, or edema. 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 in [place] for plasmapheresis with no improvement)-now on hemodialysis / /mon. ESRD with hemodialysis, current wound on R heel, prostrate cancer with surgery, iron anemia, benign colon polyps, diverticular disease, hypothyroid, aortic stenosis with valve replacement.rt heel wound-goes to [facility] on mon-pt stated dsng changed last 03-07-18 History of Any Multi-Drug Resistant Organisms: None Reported Past Surgical History: Cardiac Valve Replacement, Heart Catheterization, Hernia Repair, Joint Replacement, Prostate Surgery, Tonsillectomy Additional Past Surgical History / Comment(s): R hemodialysis catheter, 2014 aortic valve replaced, prostatectomy, colonoscopy with benign polypectomy, bilateral cataract removals, L eye retinal surgery, total R knee replacement. Past Anesthesia/Blood Transfusion Reactions: No Reported Reaction Past Psychological History: No Psychological Hx Reported Additional Psychological History / Comment(s): Single and lives independently. Has caregivers. Stopped smoking several years ago. 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 No recent travel history. No animals in the home Smoking Status: Never smoker Past Alcohol Use History: None Reported Additional Past Alcohol Use History / Comment(s): Pt states he started smoking in college and was a light smoker. He cannot recall when he actually quit but states he only smoked lightly for a few years. Past Drug Use History: None Reported - Past Family History Father Family Medical History: No Reported History Additional Family Medical History / Comment(s): age 92.5 years old- from old age Mother Family Medical History: Myocardial Infarction ([place]) Medications and Allergies Home Medications Medication Instructions Recorded Confirmed Type Levothyroxine Sodium [Synthroid] 25 mcg PO DAILY 05/05/14 04/25/18 History Simvastatin [Zocor] 20 mg PO HS 05/05/14 04/25/18 History Insulin Glargine [Lantus] 10 unit SQ HS #1 vial 02/19/18 04/25/18 Rx INSULIN ASPART (NovoLOG) [NovoLOG 5 unit SQ AC-TID vial 03/13/18 04/25/18 Rx (formulary)] Apixaban [Eliquis] 2.5 mg PO BID 04/08/18 04/25/18 History Metoprolol Succinate [Toprol XL] 25 mg PO DAILY 04/08/18 04/25/18 History NIFEdipine XL [Procardia XL] 60 mg PO DAILY 04/08/18 04/25/18 History Pantoprazole Sodium [Protonix] 40 mg PO DAILY 04/25/18 04/25/18 History Allergies Allergy/AdvReac Type Severity Reaction Status Date / Time No Known Allergies Allergy Verified 04/25/18 07:40 Physical Exam Vitals: Vital Signs Temp Pulse Pulse Resp BP BP Pulse Ox 04/25/18 08:00 16 04/25/18 07:52 97.4 F L 60 16 159/72 97 04/25/18 07:39 136/72 04/25/18 07:00 61 109/70 98 04/25/18 06:42 64 112/72 04/25/18 05:39 97.8 F 73 16 112/72 99 Intake and Output 04/24/18 04/25/18 04/25/18 22:59 06:59 14:59 Intake Total 250 Balance 250 Intake: Amount of Fluid Infused ( 250 ml) Other: Weight 92.533 kg Results - Lab Results Most recent lab results Calcium 8.9 mg/dL (8.4-10.2) 04/25/18 06:48 04/25/18 06:48 04/25/18 06:48 Assessment and Plan Plan: Assessment: 1. End-stage renal disease maintained on hemodialysis on a Monday schedule. Etiology of this ANCA vascuitis. 2. Right proximal femur fracture secondary to fall. 3. Hypertension with chronic kidney disease. Controlled. 4. Insulin-dependent diabetes mellitus. Plan: Hemodialysis tomorrow. Check phosphorus level. Cleared for hip surgery from nephrology standpoint. Thank you for the consultation. I will continue to follow the patient with you during his hospital stay.
[2018-04-25] MEDS ORDERED: ONDANSETRON 4 MG/2 ML VIAL IVP PRN ×2 (12:02→16:18)
[2018-04-25] MEDS ORDERED: ACETAMINOPHEN TAB 325 MG TAB PO PRN (12:02)
--- NOTE | 2018-04-25 12:10 | P.HPIM ---
History of Present Illness H&P Date: 04/25/18 This is a 82-year-old male patient who presents to the hospital after a fall. 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 Patient does have 24-hour care. Patient does have a past medical history of atrial fibrillation in which he's on eliquis, end-stage renal disease with hemodialysis, heart failure, CVA, diabetes mellitus, hyperlipidemi a, hypertension, pneumonia, prostate disorder and thyroid disorder. X-ray completed showing displaced subcapital fracture at the right femoral neck. Hip x-ray completed showing redemonstration of impacted displaced subcapital fracture right proximal femur. No additional acute pelvic fracture or d islocation is seen. Ortho services have been consulted. Chest x-ray was completed showing chronic changes without evidence for acute pulmonary disease. Nephrology and cardiology services have been consulted for surgical clearance. At this time patient is resting comfortably in bed. Patient is complaining of some hip pain. Surgical services are when patient to eliis yesterday for his Atrial fibrillation. She denies chest pain or shortness of breath. Patient denies nausea, vomiting or diarrhea. 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 ESRD with hemodialysis, current wound on R heel, prostrate cancer with surgery, iron anemia, benign colon polyps, diverticular disease, hypothyroid, aortic stenosis with valve replacement.rt heel wound-goes to [facility] on mon-pt stated dsng changed last 03-07-18 History of Any Multi-Drug Resistant Organisms: None Reported Past Surgical History: Cardiac Valve Replacement, Heart Catheterization, Hernia Repair, Joint Replacement, Prostate Surgery, Tonsillectomy Additional Past Surgical History / Comment(s): R hemodialysis catheter, 2014 aortic valve replaced, prostatectomy, colonoscopy with benign polypectomy, bilateral cataract removals, L eye retinal surgery, total R knee replacement. Past Anesthesia/Blood Transfusion Reactions: No Reported Reaction Past Psychological History: No Psychological Hx Reported Additional Psychological History / Comment(s): Single and lives independently. Has caregivers. Stopped smoking several years ago. Retired [employer]. No experience. No recent travel history. No animals in the home Smoking Status: Never smoker Past Alcohol Use History: None Reported Additional Past Alcohol Use History / Comment(s): Pt states he started smoking in college and was a light smoker. He cannot recall when he actually quit but states he only smoked lightly for a few years. Past Drug Use History: None Reported - Past Family History Father Family Medical History: No Reported History Additional Family Medical History / Comment(s): age 92.5 years old- from old age Mother Family Medical History: Myocardial Infarction ([place]) Medications and Allergies Home Medications Medication Instructions Recorded Confirmed Type Levothyroxine Sodium [Synthroid] 25 mcg PO DAILY 05/05/14 04/25/18 History Simvastatin [Zocor] 20 mg PO HS 05/05/14 04/25/18 History Insulin Glargine [Lantus] 10 unit SQ HS #1 vial 02/19/18 04/25/18 Rx INSULIN ASPART (NovoLOG) [NovoLOG 5 unit SQ AC-TID vial 03/13/18 04/25/18 Rx (formulary)] Apixaban [Eliquis] 2.5 mg PO BID 04/08/18 04/25/18 History Metoprolol Succinate [Toprol XL] 25 mg PO DAILY 04/08/18 04/25/18 History NIFEdipine XL [Procardia XL] 60 mg PO DAILY 04/08/18 04/25/18 History Pantoprazole Sodium [Protonix] 40 mg PO DAILY 04/25/18 04/25/18 History Allergies Allergy/AdvReac Type Severity Reaction Status Date / Time No Known Allergies Allergy Verified 04/25/18 07:40 Physical Exam Vitals: Vital Signs Temp Pulse Pulse Resp BP BP Pulse Ox 04/25/18 08:00 16 04/25/18 07:52 97.4 F L 60 16 159/72 97 04/25/18 07:39 136/72 04/25/18 07:00 61 109/70 98 04/25/18 06:42 64 112/72 04/25/18 05:39 97.8 F 73 16 112/72 99 Intake and Output 04/24/18 04/25/18 04/25/18 22:59 06:59 14:59 Intake Total 250 Balance 250 Intake: Amount of Fluid Infused ( 250 ml) Other: Weight 92.533 kg Head normocephalic Neck supple Lungs clear to auscultation bilaterally no wheezing or crackles Heart regular rate and rhythm S1-S2, no rub or gallop Abdomen is soft nontender nondistended positive bowel sounds no hepatosplenomegaly Extremities no edema. Right upper thigh and hip tenderness Neuro alert and orientated to 3 Results CBC & Chem 7: 04/25/18 06:48 04/25/18 06:48 Labs: Abnormal Lab Results - Last 24 Hours (Table) 04/25/18 04/25/18 04/25/18 Range/Units 06:48 06:48 07:54 RBC 4.00 L (4.30-5.90) m/uL Hgb 11.4 L (13.0-17.5) gm/dL Hct 35.2 L (39.0-53.0) % Neutrophils # 8.0 H (1.3-7.7) k/uL Lymphocytes # 0.9 L (1.0-4.8) k/uL Creatinine 3.96 H (0.66-1.25) mg/dL Glucose 103 H (74-99) mg/dL POC Glucose (mg/dL) 104 H (75-99) mg/dL AST 16 L (17-59) U/L Total Protein 5.6 L (6.3-8.2) g/dL Albumin 3.3 L (3.5-5.0) g/dL Thrombosis Risk Factor Assmnt - Choose All That Apply Any of the Below Risk Factors Present?: No Each Risk Factor Represents 2 Points: Patient confined to bed Each Risk Factor Represents 3 Points: Age 75 years or older Each Risk Factor Represents 5 Points: Hip, pelvis, or leg fracture (< 1 month) Thrombosis Risk Factor Assessment Total Risk Factor Score: 10 Thrombosis Risk Factor Assessment Level: High Risk Assessment and Plan Assessment: 1. Fall with femoral neck fracture. Hip x-ray completed showing displaced subcapital fracture at the right femoral neck. X-ray of right hip and pelvis completed showing impacted displaced subcapital fracture right proximal femur. No additional acute pelvic fracture or dislocation is seen. Orthopedics services have been consulted 2. End-stage renal disease. Etiology of ANCA vasculitis. Will consult nephrology services for surgical clearance and management 3. Essential hypertension. Cardiac meds resumed per cardiology 4. History of diabetes mellitus. Home medications of Lantus plus sliding scale coverage has been ordered 5. History of hypothyroidism. Synthroid resumed 6. History of hyperlipidemia 7. History of aortic valve replacement 2014 8. History of atrial fibrillation. Patient is maintained on eliquis. Eliquis currently on hold for surgery Patient to be cleared by cardiology and nephrology services prior to surgery. We'll consult social staff worker. Patient will likely need ECF upon discharge Time with Patient: Greater than 30 (Greater than 60% of the total time spent in counseling and coordination of care. I performed an examination of the patient and discussed their management with the Nurse Practitioner. I have reviewed the Nurse Practitioner's notes and agree with the documented findings and plan of care)
--- NOTE | 2018-04-25 12:11 | P.CNOR ---
History of Present Illness - [facility] Consult date: 04/25/18 Requesting physician: Sánchez Valdivia Consult reason: fracture History of present illness: Patient is a pleasant 82-year-old gentleman with multiple medical comorbidities that is seen at bedside this am in consultation for right hip fracture. Patient was admitted through the ED this morning after a fall at home resulted in a right hip fracture. Patient reports that this morning he was walking through his kitchen he was attempting to plug in his electric razor when he lost his footing and fell. He immediately experienced pain in his right hip he was unable to get up or ambulate. He was transported via EMS. He has hip and groin pain as expected. he denies numbness or tingling. He has been treated by wound care center for a right diabetic heal ulcer. he states that it is almost healed and is not on antibiotics. He receives dialysis 3 x/ week which last treatment was yesterday, Monday. He takes eloquis which was last taken yesterday as well. Patient did not strike his head, he does not have a headache or vision changes, he denies any neck pain. he has no chest pain, fever or chills, or SOB. Review of Systems All systems: negative Constitutional: Denies chills, Denies fever Eyes: denies blurred vision, denies pain Ears, nose, mouth and throat: Denies headache, Denies sore throat Cardiovascular: Denies chest pain, Denies shortness of breath Respiratory: Denies cough Gastrointestinal: Denies abdominal pain, Denies diarrhea, Denies nausea, Denies vomiting Musculoskeletal: Denies myalgias Integumentary: Denies pruritus, Denies rash Neurological: Denies numbness, Denies weakness Psychiatric: Denies anxiety, Denies depression Endocrine: Denies fatigue, Denies weight change Past Medical History Past Medical History: Atrial Fibrillation, Cancer, Heart Failure, CVA/TIA, Diabetes Mellitus, Hyperlipidemia, Hypertension, Pneumonia, Prostate Disorder, Renal Disease, Thyroid Disorder Additional Past Medical History / Comment(s): hypoglycemia, pneumonia, anemia ,(per previous charting-acute kidney injury 2ndary to ATN 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 ESRD with hemodialysis, current wound on R heel, prostrate cancer with surgery, iron anemia, benign colon polyps, diverticular disease, hypothyroid, aortic stenosis with valve replacement.rt heel wound-goes to [facility] on mon-pt stated dsng changed last 03-07-18 History of Any Multi-Drug Resistant Organisms: None Reported Past Surgical History: Cardiac Valve Replacement, Heart Catheterization, Hernia Repair, Joint Replacement, Prostate Surgery, Tonsillectomy Additional Past Surgical History / Comment(s): R hemodialysis catheter, 2014 aortic valve replaced, prostatectomy, colonoscopy with benign polypectomy, bilateral cataract removals, L eye retinal surgery, total R knee replacement. Past Anesthesia/Blood Transfusion Reactions: No Reported Reaction Past Psychological History: No Psychological Hx Reported Additional Psychological History / Comment(s): Single and lives independently. Has caregivers. Stopped smoking several years ago. 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 No experience. No recent travel history. No animals in the home Smoking Status: Never smoker Past Alcohol Use History: None Reported Additional Past Alcohol Use History / Comment(s): Pt states he started smoking in college and was a light smoker. He cannot recall when he actually quit but states he only smoked lightly for a few years. Past Drug Use History: None Reported - Past Family History Father Family Medical History: No Reported History Additional Family Medical History / Comment(s): age 92.5 years old- from old age Mother Family Medical History: Myocardial Infarction ([place]) Medications and Allergies Home Medications Medication Instructions Recorded Confirmed Type Levothyroxine Sodium [Synthroid] 25 mcg PO DAILY 05/05/14 04/25/18 History Simvastatin [Zocor] 20 mg PO HS 05/05/14 04/25/18 History Insulin Glargine [Lantus] 10 unit SQ HS #1 vial 02/19/18 04/25/18 Rx INSULIN ASPART (NovoLOG) [NovoLOG 5 unit SQ AC-TID vial 03/13/18 04/25/18 Rx (formulary)] Apixaban [Eliquis] 2.5 mg PO BID 04/08/18 04/25/18 History Metoprolol Succinate [Toprol XL] 25 mg PO DAILY 04/08/18 04/25/18 History NIFEdipine XL [Procardia XL] 60 mg PO DAILY 04/08/18 04/25/18 History Pantoprazole Sodium [Protonix] 40 mg PO DAILY 04/25/18 04/25/18 History Allergies Allergy/AdvReac Type Severity Reaction Status Date / Time No Known Allergies Allergy Verified 04/25/18 07:40 Physical Examination Inspection of RLE shows a shortened externally rotated leg. There are no wounds at the hip or leg. There is a heal wound that is granulated and almost healed. No bleeding or drainage. No erythema. ROM of hip not tested due to fracture. There is a well-healed midline surgical wound indicative of a previous right total knee arthroplasty. The right lower extremity is grossly neurovascularly intact with motor and sensation throughout. 2+ dorsalis pedis pulses present as well as less than 2 second capillary refill. The calf is soft and nontender. Results X-rays of the pelvis and right hip show a displaced right femoral neck fracture. - Labs Labs: Abnormal Lab Results - Last 24 Hours (Table) 04/25/18 04/25/18 04/25/18 Range/Units 06:48 06:48 07:54 RBC 4.00 L (4.30-5.90) m/uL Hgb 11.4 L (13.0-17.5) gm/dL Hct 35.2 L (39.0-53.0) % Neutrophils # 8.0 H (1.3-7.7) k/uL Lymphocytes # 0.9 L (1.0-4.8) k/uL Creatinine 3.96 H (0.66-1.25) mg/dL Glucose 103 H (74-99) mg/dL POC Glucose (mg/dL) 104 H (75-99) mg/dL AST 16 L (17-59) U/L Total Protein 5.6 L (6.3-8.2) g/dL Albumin 3.3 L (3.5-5.0) g/dL H & H 04/25/18 Range/Units 06:48 Hgb 11.4 L (13.0-17.5) gm/dL Hct 35.2 L (39.0-53.0) % Coagulation 04/25/18 Range/Units 06:48 INR 0.9 (<1.2) Result Diagrams: 04/25/18 06:48 04/25/18 06:48 - Diagnostic results Hip x-ray: report reviewed, image reviewed Assessment and Plan Assessment: Right femoral neck fracture Diabetes mellitus Dialysis Cardiovascular disease Plan: The patient has been reviewed with Dr. Valdivia. We have reviewed his x-rays. We have recommended proceeding with a right hip hemiarthroplasty for his right femoral neck fracture. He appears to be medically stable along with his labs were within acceptable ranges. He has been medically cleared. We'll proceed with surgical intervention this afternoon. The risks, possible complications as well as benefits have been reviewed with the patient. He desires to proceed. He may resume eloquis postoperatively. He will need rehab facility placement postoperatively. Time with Patient: Less than 30
[2018-04-25] MEDS: INSULIN ASPART (NovoLOG) 100 UNIT/ML VIAL SQ SCH ×3 (13:57→20:54)
[2018-04-25] MEDS ORDERED: SODIUM CHLORIDE 0.9% 1,000 ML IV ONE ×2 (14:26)
[2018-04-25] MEDS ORDERED: LIDOCAINE 1% INJ 10MG/ML (20 ML MDV) ONE (14:39)
[2018-04-25] MEDS ORDERED: fentaNYL (PF) 50 MCG/ML 2 ML AMP ONE (14:39)
[2018-04-25] MEDS ORDERED: SODIUM CHLORIDE 0.9% 100 ML BAG ONE (14:39)
[2018-04-25] MEDS ORDERED: SUCCINYLCHOLINE CHLORIDE 100 MG/5 ML SYR IV ONE (14:39)
[2018-04-25] MEDS ORDERED: TRANEXAMIC ACID 1,000 MG/10 ML VIAL ONE (14:39)
[2018-04-25] MEDS ORDERED: PROPOFOL 10 MG/ML 20 ML VIAL IV ONE (14:39)
[2018-04-25] MEDS ORDERED: ePHEDrine SULFATE/0.9% NACL/PF 50 MG/5 ML SYRINGE IV ONE (14:39)
[2018-04-25] MEDS ORDERED: PHENYLEPHRINE-0.9% NACL SYG 1 MG/10 ML SYRINGE ONE (14:39)
[2018-04-25] MEDS ORDERED: ceFAZolin IN SWFI 2 GM/20 ML SYRINGE IVP ONE (14:45)
[2018-04-25] MEDS ORDERED: TRANEXAMIC ACID 1,000 MG in SODIUM CHLORIDE 0.9% 100 ML IVPB ONE ×4 (14:45)
[2018-04-25] MEDS ORDERED: MAGNESIUM HYDROXIDE 2,400 MG/10 ML CUP PO PRN (16:18)
[2018-04-25] MEDS ORDERED: traMADol 50 MG TAB PO PRN (16:18)
[2018-04-25] MEDS ORDERED: hydrOXYzine PAMOATE 25 MG CAP PO PRN (16:18)
[2018-04-25] MEDS ORDERED: HYDROmorphone 0.5 MG/0.5 ML SYRINGE IVP PRN ×2 (16:18)
[2018-04-25] MEDS ORDERED: HYDROcodone/APAP 5-325MG 1 EACH TAB PO PRN (16:18)
[2018-04-25] MEDS ORDERED: TEMAZEPAM 15 MG CAP PO PRN (16:18)
[2018-04-25] MEDS ORDERED: DIAZEPAM 5 MG TAB PO PRN (16:18)
[2018-04-25] MEDS: HYDROmorphone 0.5 MG/0.5 ML SYRINGE IVP ONE ×3 (16:37→16:55)
[2018-04-25 16:39] LABS: Glucose,Whole Blood 95 mg/dL (75-99)
--- NOTE | 2018-04-25 17:02 | XR ---
EXAMINATION TYPE: XR Hip Limited RT DATE OF EXAM: 04/25/2018 COMPARISON: NONE HISTORY: Postop hip surgery TECHNIQUE: Single view. FINDINGS: There is a right hip prosthesis. Components are in anatomic position. IMPRESSION: No complicating process seen.
[2018-04-25] MEDS ORDERED: hydrALAZINE HCL 20 MG/ML 1 ML VIAL IVP PRN (17:29)
--- NOTE | 2018-04-25 18:30 | OP ---
OPERATIVE REPORT DATE OF PROCEDURE: 04/25/2018 PREOPERATIVE DIAGNOSIS: Right hip displaced femoral neck fracture. POSTOPERATIVE DIAGNOSIS: Right hip displaced femoral neck fracture. OPERATION: Right hip hemiarthroplasty. SURGEON: Sánchez Valdivia MD DISPLAY MAKER: Mich Giordano PA-C ANESTHESIA: General endotracheal. ESTIMATED BLOOD LOSS: 100 mL. DRAINS: None. COMPLICATIONS: None apparent. DISPOSITION: Post-Anesthesia Care Unit. INDICATIONS: Gerson is a very pleasant 82-year-old male who this morning slipped in his kitchen onto his right hip. He had immediate right hip pain. He was brought to [facility] via ambulance. Workup including x-rays revealed a displaced femoral neck fracture. Gerson does have end-stage renal disease. He is on dialysis. He did receive dialysis yesterday. Due to his significant medical comorbidities, he was admitted to the medical service. He was cleared for surgery by the medical service. He is a ambulator. We did recommend going forward with hip hemiarthroplasty. The risks of the procedure were discussed with Gerson in detail. These risks include but are not limited to risk of infection, nerve damage, bleeding, pain, and a small risk of deep vein thrombosis which could lead to fatal pulmonary embolism. There is also a risk of instability in the hip as well as loosening of the implant. All of his questions with regards to the risks of the procedure were answered to his satisfaction. Appropriate informed consent was obtained. DESCRIPTION OF THE PROCEDURE: The patient was identified in the preoperative holding area. Surgical site was marked by both the patient and myself. He was given 2 grams of Ancef IV for prophylactic purposes. He was then transported to the operative suite. He was placed supine on the operating room table. General anesthetic was then administered and dosed per the anesthesia department without apparent complication. He was then placed in the left lateral decubitus position, well padded in preparation for surgery. His legs were appropriately padded, and a well-padded axillary roll was placed as well. The patient's right lower extremity was then prepped and draped in the usual sterile fashion. Standard surgical pause was then undertaken to ensure that we were operating on the correct site and that appropriate preoperative antibiotics had been given. All staff in the room were in agreement and we proceeded. The outlines of the greater trochanter were then marked with a surgical pen. A planned incision approximately 3 fingerbreadths superior to the greater trochanter and 3 fingerbreadths below the greater trochanter was then marked with a surgical pen. Incision was then made with a 10 blade scalpel. Dissection was carried down sharply to the tensor fascia. The tensor fascia was then incised in line with the incision. This exposed the underlying trochanteric bursa. Charnley retractor was then placed. The raphe between the anterior third and the posterior third of the gluteus medius muscle was identified. I then used a Hardinge-type anterolateral approach. The anterior third of the gluteus medius, minimus and capsule was then taken off as a sleeve anteriorly. This exposed the femoral neck fracture. I then utilized the template to mercedes for a freshening cut of the femoral neck. I then utilized a reciprocating saw to make a fresh femoral neck cut. I then removed the akhiok femoral head. This was done utilizing the corkscrew. This was then measured. It was measured as a size 52. A 52 trial head was then placed on to the lollipop. It had a very secure fit. It had a good suction-type fit. I then proceeded to examine the acetabulum for any loose bodies. His acetabular cartilage was actually in fairly good condition. There were no loose bodies noted. I then proceeded with preparation of the proximal femur. The leg was then externally rotated and flexed. I had good exposure to the proximal femur. I then utilized a steam box operator to gain access to the femoral canal. I then utilized a starting reamer. I then reamed the femoral canal up to a size 12 reamer, where I met good cortical resistance. I then proceeded with broaching. I started with a size 8 broach. This was broached at approximately 10 to 15 degrees of anteversion. I then proceeded up to a size 12 broach, which fit very nicely. I then trialed. A +3 neck and a 52 head fit very nicely. He had minimal shuck. The hip was stable throughout a full range of motion. I then re-dislocated the hip. The trial components were removed. The wound was thoroughly irrigated with sterile saline solution with antibiotic added via pulse lavage. I then had the canvas products sales representative open a Biomet size 12 Bimetric collared stem, a +6 neck and a 52 monopolar head. The stem was then impacted into the canal in approximately 10 to 15 degrees of anteversion. The Mcguire taper was then dried very carefully, and the neck and head was assembled on the back table and then impacted onto a dry Mcguire taper. The hip was then reduced. Again it was taken through a full range of motion. It was very stable throughout full range of motion. There was minimal Shuck. The leg lengths were approximately equal. At this point in time, no further work was deemed necessary. Again the wound was thoroughly irrigated with sterile saline solution with antibiotic added. The anterior capsule, gluteus medius and gluteus minimus were repaired back to the greater trochanter utilizing interrupted #5 Ethibond suture. The raphe between the anterior third and the middle third of the gluteus medius was repaired with 0 Vicryl interrupted suture. The Charnley retractor was then removed. Again the wound was thoroughly irrigated with sterile saline solution with antibiotic added via pulse lavage. The tensor fascia was then closed with #2 running Quill suture. The subcutaneous tissue was then closed with 2-0 Vicryl interrupted suture and the skin was closed with a running 3-0 Quill suture. Dermabond was then applied to the incision. Sterile compressive dressings were then applied as well. The patient was then placed into a hip abduction pillow. All sponge and needle counts were deemed correct prior to closure. The patient tolerated the procedure without apparent complication. He was transferred to the recovery room in stable condition. MMODL / IJN: [id number] /
[2018-04-25] MEDS: INSULIN DETEMIR (LEVEMIR) 100 UNIT/ML SYR SQ SCH (20:50)
[2018-04-25] MEDS: SENNOSIDES-DOCUSATE SODIUM 1 EACH TAB PO SCH (20:50)
[2018-04-25 20:59] LABS: Glucose,Whole Blood 122 mg/dL (75-99)
[2018-04-25] MEDS: ceFAZolin IN SWFI 2 GM/20 ML SYRINGE IVP SCH (23:57)
[2018-04-26] MEDS: LEVOTHYROXINE 25 MCG TAB PO SCH (05:47)
[2018-04-26] MEDS: HYDROcodone/APAP 5-325MG 1 EACH TAB PO PRN (06:04)
[2018-04-26 06:23] LABS: Appearance,Urine Clear (Clear); Bilirubin,Urine Negative (Negative); Blood,Urine Moderate (Negative); Color,Urine Yellow; Glucose,Urine (UA) Trace (Negative); Ketones,Urine Negative (Negative); Leukocyte Esterase,Urine Trace (Negative); Nitrite,Urine Negative (Negative); Protein,Urine 3+ (Negative); RBC,Urine 9 /hpf (0-5); Specific Gravity,Urine 1.014 (1.001-1.035); Urobilinogen,Urine <2.0 mg/dL (<2.0); WBC,Urine 12 /hpf (0-5)
[2018-04-26 06:32] LABS: Amphetamine Screen,Urine Not Detected (NotDetected); Barbiturate Screen,Urine Not Detected (NotDetected); Benzodiazepines Screen,Urine Not Detected (NotDetected); Cocaine Screen,Urine Not Detected (NotDetected); Methadone Screen, Urine Not Detected (NotDetected); Opiate Screen,Urine Detected (NotDetected); Oxycodone Screen, Urine Not Detected (NotDetected); Phencyclidine Screen,Urine Not Detected (NotDetected); Tricyclic Antidepressant,Urine Not Detected (NotDetected); Urn Cannabinoid Scrn Not Detected (NotDetected)
[2018-04-26 07:21] LABS: Glucose,Whole Blood 188 mg/dL (75-99)
[2018-04-26] MEDS: METOPROLOL SUCCINATE (ER) 25 MG TAB.ER.24H PO SCH (07:26)
[2018-04-26] MEDS: INSULIN ASPART (NovoLOG) 100 UNIT/ML VIAL SQ SCH ×4 (07:27→21:44)
[2018-04-26] MEDS: PANTOPRAZOLE 40 MG TABLET PO SCH (07:27)
[2018-04-26] MEDS: MULTIVITAMINS, THERA 1 EACH TAB PO SCH (07:27)
[2018-04-26 08:13] LABS: Albumin 3.2 g/dL (3.5-5.0); Calcium 8.6 mg/dL (8.4-10.2); Potassium 4.9 mmol/L (3.5-5.1); Total Bilirubin 0.4 mg/dL (0.2-1.3); Total Protein 5.5 g/dL (6.3-8.2)
--- NOTE | 2018-04-26 08:14 | P.GSCN ---
History of Present Illness Consult date: 04/26/18 Reason for Consult: Right heel wound, wound care recommendations Requesting physician: Jomar Rangel History of present illness: This is an 82-year-old debilitated male patient who follows with Dr. Rangel on an outpatient basis. 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 Davidson 04/18/2018. He presented to [facility] emergency room yesterday after a fall at home. He does have caregivers in the home. X-rays in the emergency room completed demonstrated displaced fracture of the right proximal femur. Orthopedics were consulted and they took him to the OR last night for right hip hemiarthroplasty. Dr. Davidson was consulted for treatment and management of the patient's right heel ulcer. Review of Systems Review of systems was limited as the patient is confused, he did just receive IV narcotic pain medication. At this point in time, his only complaint is pain in his right hip and foot. 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 in [place] for plasmapheresis with no improvement)-now on hemodialysis //mon. ESRD with hemodialysis, current wound on R heel, prostrate cancer with surgery, iron anemia, benign colon polyps, diverticular disease, hypothyroid, aortic stenosis with valve replacement.rt heel wound-goes to [facility] on mon-last appointment 04/18/2018 with orders for Santyl dressing changes daily History of Any Multi-Drug Resistant Organisms: None Reported Past Surgical History: Cardiac Valve Replacement, Heart Catheterization, Hernia Repair, Joint Replacement, Prostate Surgery, Tonsillectomy Additional Past Surgical History / Comment(s): R hemodialysis catheter, 2014 aortic valve replaced, prostatectomy, colonoscopy with benign polypectomy, bilateral cataract removals, L eye retinal surgery, total R knee replacement. Past Anesthesia/Blood Transfusion Reactions: No Reported Reaction Past Psychological History: No Psychological Hx Reported Additional Psychological History / Comment(s): Single and lives independently. Has caregivers. Stopped smoking several years ago. 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 No experience. No recent travel history. No animals in the home Smoking Status: Never smoker Past Alcohol Use History: None Reported Additional Past Alcohol Use History / Comment(s): Pt states he started smoking in college and was a light smoker. He cannot recall when he actually quit but states he only smoked lightly for a few years. Past Drug Use History: None Reported - Past Family History Father Family Medical History: No Reported History Additional Family Medical History / Comment(s): age 92.5 years old- from old age Mother Family Medical History: Myocardial Infarction (CO) Medications and Allergies Home Medications Medication Instructions Recorded Confirmed Type Levothyroxine Sodium [Synthroid] 25 mcg PO DAILY 05/05/14 04/25/18 History Simvastatin [Zocor] 20 mg PO HS 05/05/14 04/25/18 History Insulin Glargine [Lantus] 10 unit SQ HS #1 vial 02/19/18 04/25/18 Rx INSULIN ASPART (NovoLOG) [NovoLOG 5 unit SQ AC-TID vial 03/13/18 04/25/18 Rx (formulary)] Apixaban [Eliquis] 2.5 mg PO BID 04/08/18 04/25/18 History Metoprolol Succinate [Toprol XL] 25 mg PO DAILY 04/08/18 04/25/18 History NIFEdipine XL [Procardia XL] 60 mg PO DAILY 04/08/18 04/25/18 History Pantoprazole Sodium [Protonix] 40 mg PO DAILY 04/25/18 04/25/18 History Allergies Allergy/AdvReac Type Severity Reaction Status Date / Time No Known Allergies Allergy Verified 04/25/18 07:40 Surgical - Exam Vital Signs Temp Pulse Resp BP Pulse Ox 97.8 F 73 16 112/72 99 04/25/18 05:39 04/25/18 05:39 04/25/18 05:39 04/25/18 05:39 04/25/18 05:39 - General well developed, well nourished, moderate pain - Eyes PERRL, normal ocular movement - ENT decreased hearing - Neck no masses, no bruits, trachea midline - Respiratory Lungs sounds clear bilaterally. Respirations even, nonlabored. Currently on room air with oxygen saturation 98%. Able to achieve 2000 mL on his incentive spirometry. - Cardiovascular S1, S2 present. Regular rate and rhythm, sinus rhythm with first-degree AV block on EKG. Palpable peripheral pulses bilaterally. No edema present. - Abdomen Abdomen: soft, non tender, bowel sounds - Genitourinary Deferred - Rectum Deferred - Integumentary Dry healing wound present to right heel, no necrotic or infected looking tissue, see paper chart for pictures and measurement of wound. Right anterior hip with dry intact dressing. - Neurologic normal sensation - Musculoskeletal normal posture - Psychiatric Cannot state the month or the year, cannot state what hospital he is in or why he is here. Again, he recently had IV narcotic pain medication oriented to person, speech is normal Results - Labs 04/25/18 06:48 04/25/18 06:48 Abnormal Lab Results - Last 24 Hours (Table) 04/25/18 04/25/18 04/25/18 Range/Units 06:48 07:54 20:47 Creatinine 3.96 H (0.66-1.25) mg/dL Glucose 103 H (74-99) mg/dL POC Glucose (mg/dL) 104 H 122 H (75-99) mg/dL AST 16 L (17-59) U/L Total Protein 5.6 L (6.3-8.2) g/dL Albumin 3.3 L (3.5-5.0) g/dL Urine Protein (Negative) Urine Glucose (UA) (Negative) Urine Blood (Negative) Ur Leukocyte Esterase (Negative) Urine RBC (0-5) /hpf Urine WBC (0-5) /hpf Urine Opiates Screen (NotDetected) U Methamphetamines Scrn (NotDetected) 04/26/18 04/26/18 04/26/18 Range/Units 06:03 06:03 07:08 Creatinine (0.66-1.25) mg/dL Glucose (74-99) mg/dL POC Glucose (mg/dL) 188 H (75-99) mg/dL AST (17-59) U/L Total Protein (6.3-8.2) g/dL Albumin (3.5-5.0) g/dL Urine Protein 3+ H (Negative) Urine Glucose (UA) Trace H (Negative) Urine Blood Moderate H (Negative) Ur Leukocyte Esterase Trace H (Negative) Urine RBC 9 H (0-5) /hpf Urine WBC 12 H (0-5) /hpf Urine Opiates Screen Detected H (NotDetected) U Methamphetamines Scrn Detected H (NotDetected) Diabetes panel 04/25/18 Range/Units 06:48 Sodium 138 (137-145) mmol/L Chloride 99 (98-107) mmol/L Carbon Dioxide 30 (22-30) mmol/L BUN 20 (9-20) mg/dL Creatinine 3.96 H (0.66-1.25) mg/dL Glucose 103 H (74-99) mg/dL Calcium 8.9 (8.4-10.2) mg/dL AST 16 L (17-59) U/L ALT 24 (21-72) U/L Alkaline Phosphatase 59 (38-126) U/L Total Protein 5.6 L (6.3-8.2) g/dL Albumin 3.3 L (3.5-5.0) g/dL Calcium panel 04/25/18 04/25/18 Range/Units 06:48 06:48 Calcium 8.9 (8.4-10.2) mg/dL Phosphorus 3.5 (2.5-4.5) mg/dL Albumin 3.3 L (3.5-5.0) g/dL Pituitary panel 04/25/18 Range/Units 06:48 Sodium 138 (137-145) mmol/L Chloride 99 (98-107) mmol/L Carbon Dioxide 30 (22-30) mmol/L BUN 20 (9-20) mg/dL Creatinine 3.96 H (0.66-1.25) mg/dL Glucose 103 H (74-99) mg/dL Calcium 8.9 (8.4-10.2) mg/dL Adrenal panel 04/25/18 Range/Units 06:48 Sodium 138 (137-145) mmol/L Chloride 99 (98-107) mmol/L Carbon Dioxide 30 (22-30) mmol/L BUN 20 (9-20) mg/dL Creatinine 3.96 H (0.66-1.25) mg/dL Glucose 103 H (74-99) mg/dL Calcium 8.9 (8.4-10.2) mg/dL Total Bilirubin 0.4 (0.2-1.3) mg/dL AST 16 L (17-59) U/L ALT 24 (21-72) U/L Alkaline Phosphatase 59 (38-126) U/L Total Protein 5.6 L (6.3-8.2) g/dL Albumin 3.3 L (3.5-5.0) g/dL Assessment and Plan Assessment: 1. Chronic diabetic ulcer to right heel, status post debridement 04/18/2018 in the wound care center 2. Fall 04/25/2018 with displaced fracture of the right proximal femur, status post right hip hemiarthroplasty 3. History of atrial fibrillation on chronic Eliquis for anticoagulation 4. End-stage renal failure currently on hemodialysis 5. Insulin-dependent diabetes mellitus 6. Chronic heart failure 7. Hypertension 8. Hyperlipidemia 9. Hypothyroidism Plan: The patient was seen and examined at the bedside. Chart/diagnostics reviewed. The patient does complain of significant pain when barely touching his right leg. Appears slightly confused, not sure how much of this is baseline versus medication induced. Our recommendation for wound care of his right heel is Santyl dressing changes daily, foam boot for offloading. Would recommend rehab at discharge. Patient may continue to follow in the wound care center with Dr. Davidson on Wednesdays for continued management of his right heel wound. Blood sugars should be well controlled. Continue medical management per primary care, orthopedic services. We will continue to see on an as-needed basis. Thank you Dr. Rangel for this consult. Please call us with any further questions. Time with Patient: Greater than 30
[2018-04-26 08:32] LABS: Basophils # (A) 0.1 k/uL (0-0.2); Basophils % (A) 0 %; Eosinophils # (A) 0.1 k/uL (0-0.7); Eosinophils % (A) 1 %; HCT 36.5 % (39.0-53.0); HGB 11.5 gm/dL (13.0-17.5); Hypochromasia Slight; Lymphocytes # (A) 0.5 k/uL (1.0-4.8); Lymphocytes % (A) 3 %; MCH 28.8 pg (25.0-35.0); MCHC 31.5 g/dL (31.0-37.0); MCV 91.5 fL (80.0-100.0); Mean Platelet Volume 6.7; Monocytes % (A) 6 %; Neutrophils # (A) 14.8 k/uL (1.3-7.7); Neutrophils % (A) 89 %; Platelet Count 363 k/uL (150-450); RBC 3.98 m/uL (4.30-5.90); WBC 16.6 k/uL (3.8-10.6)
--- NOTE | 2018-04-26 11:40 | P.PN ---
Subjective Patient is seen in follow-up for end-stage renal disease. He is maintained on hemodialysis on a Monday schedule. Patient presented after sustaining a fall and was noted to have right femoral fracture. He underwent surgical intervention on April 25. Currently seen while undergoing hemodialysis. He is slightly confused. No chest pain or shortness of breath. Vital signs are stable. General: The patient appeared well nourished and normally developed. HEENT: Head exam is unremarkable. Neck is without jugular venous distension. LUNGS: Lungs are clear to auscultation and percussion. Breath sounds decreased. HEART: Rate and Rhythm are regular. First and second heart sounds normal. No murmurs, rubs or gallops. ABDOMEN: Abdominal exam reveals normal bowel sounds. Non-tender and non- distended. No evidence of peritonitis. EXTREMITITES: No clubbing, cyanosis, or edema. Objective - Vital Signs Vital signs: Vital Signs Temp 97.7 F 04/26/18 07:00 Pulse 88 04/26/18 07:00 Resp 16 04/26/18 07:00 BP 126/62 04/26/18 07:00 Pulse Ox 91 L 04/26/18 07:00 Intake & Output 04/25/18 04/26/18 04/26/18 18:59 06:59 18:59 Intake Total 500 720 118 Output Total 150 200 Balance 350 520 118 Intake: IV 250 Amount of Fluid Infused ( 250 ml) Oral 720 118 Output: Urine 50 200 Estimated Blood Loss 100 Other: # Voids 1 - Labs CBC & Chem 7: 04/26/18 07:08 04/26/18 07:08 Labs: Abnormal Lab Results - Last 24 Hours (Table) 04/25/18 04/26/18 04/26/18 Range/Units 20:47 06:03 06:03 WBC (3.8-10.6) k/uL RBC (4.30-5.90) m/uL Hgb (13.0-17.5) gm/dL Hct (39.0-53.0) % RDW (11.5-15.5) % Neutrophils # (1.3-7.7) k/uL Lymphocytes # (1.0-4.8) k/uL BUN (9-20) mg/dL Creatinine (0.66-1.25) mg/dL Glucose (74-99) mg/dL POC Glucose (mg/dL) 122 H (75-99) mg/dL ALT (21-72) U/L Total Protein (6.3-8.2) g/dL Albumin (3.5-5.0) g/dL Urine Protein 3+ H (Negative) Urine Glucose (UA) Trace H (Negative) Urine Blood Moderate H (Negative) Ur Leukocyte Esterase Trace H (Negative) Urine RBC 9 H (0-5) /hpf Urine WBC 12 H (0-5) /hpf Urine Opiates Screen Detected H (NotDetected) U Methamphetamines Scrn Detected H (NotDetected) 04/26/18 04/26/18 04/26/18 Range/Units 07:08 07:08 07:08 WBC 16.6 H (3.8-10.6) k/uL RBC 3.98 L (4.30-5.90) m/uL Hgb 11.5 L (13.0-17.5) gm/dL Hct 36.5 L (39.0-53.0) % RDW 16.0 H (11.5-15.5) % Neutrophils # 14.8 H (1.3-7.7) k/uL Lymphocytes # 0.5 L (1.0-4.8) k/uL BUN 30 H (9-20) mg/dL Creatinine 5.72 H (0.66-1.25) mg/dL Glucose 181 H (74-99) mg/dL POC Glucose (mg/dL) 188 H (75-99) mg/dL ALT 16 L (21-72) U/L Total Protein 5.5 L (6.3-8.2) g/dL Albumin 3.2 L (3.5-5.0) g/dL Urine Protein (Negative) Urine Glucose (UA) (Negative) Urine Blood (Negative) Ur Leukocyte Esterase (Negative) Urine RBC (0-5) /hpf Urine WBC (0-5) /hpf Urine Opiates Screen (NotDetected) U Methamphetamines Scrn (NotDetected) Assessment and Plan Plan: Assessment: 1. End-stage renal disease maintained on hemodialysis on a Monday schedule. Etiology of this ANCA vascuitis. 2. Right proximal femur fracture secondary to fall. Status post right hip hemiarthroplasty on April 25. 3. Hypertension with chronic kidney disease. Controlled. 4. Insulin-dependent diabetes mellitus. Plan: Currently seen while undergoing hemodialysis. Next treatment on Monday. Phosphorus level at goal.
[2018-04-26 11:58] LABS: Glucose,Whole Blood 150 mg/dL (75-99)
--- NOTE | 2018-04-26 12:02 | P.PN ---
Subjective Progress Note Date: 04/26/18 This is a 82-year-old male patient who presents to the hospital after a fall. 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 Patient does have 24-hour care. Patient does have a past medical history of atrial fibrillation in which he's on eliquis, end-stage renal disease with hemodialysis, heart failure, CVA, diabetes mellitus, hyperlipidemia, hypertension, pneumonia, prostate disorder and thyroid disorder. X-ray completed showing displaced subcapital fracture at the right femoral neck. Hip x-ray completed showing redemonstration of impacted displaced subcapital fracture right proximal femur. No additional acute pelvic fracture or dislocation is seen. Ortho services have been consulted. Chest x-ray was completed showing chronic changes without evidence for acute pulmonary disease. Nephrology and cardiology services have been consulted for surgical clearance. At this time patient is resting comfortably in bed. Patient is complaining of some hip pain. Surgical services are when patient to [facility] yesterday for his Atrial fibrillation. She denies chest pain or shortness of breath. Patient denies nausea, vomiting or diarrhea. On 04/26/2018 patient is currently receiving hemodialysis. Patient is postop day 1 status post right hip hemiarthroplasty arthroplasty. At this time patient is complaining of some hip discomfort. Patient denies chest pain or shortness breath. Patient denies cough. Patient denies any urinary burning or frequency. Patient denies nausea vomiting or diarrhea Objective - Vital Signs Vital signs: Vital Signs Temp 97.7 F 04/26/18 07:00 Pulse 88 04/26/18 07:00 Resp 16 04/26/18 07:00 BP 126/62 04/26/18 07:00 Pulse Ox 91 L 04/26/18 07:00 Intake & Output 04/25/18 04/26/18 04/26/18 18:59 06:59 18:59 Intake Total 500 720 118 Output Total 150 200 Balance 350 520 118 Intake: IV 250 Amount of Fluid Infused ( 250 ml) Oral 720 118 Output: Urine 50 200 Estimated Blood Loss 100 Other: # Voids 1 - Exam Head normocephalic Neck supple Lungs clear to auscultation bilaterally no wheezing or crackles Heart regular rate and rhythm S1-S2, no rub or gallop Abdomen is soft nontender nondistended positive bowel sounds no hepatosplenomegaly Extremities no edema. Right hip dressing clean dry and intact Neuro alert and orientated to 3 - Labs CBC & Chem 7: 04/26/18 07:08 04/26/18 07:08 Labs: Abnormal Lab Results - Last 24 Hours (Table) 04/25/18 04/26/18 04/26/18 Range/Units 20:47 06:03 06:03 WBC (3.8-10.6) k/uL RBC (4.30-5.90) m/uL Hgb (13.0-17.5) gm/dL Hct (39.0-53.0) % RDW (11.5-15.5) % Neutrophils # (1.3-7.7) k/uL Lymphocytes # (1.0-4.8) k/uL BUN (9-20) mg/dL Creatinine (0.66-1.25) mg/dL Glucose (74-99) mg/dL POC Glucose (mg/dL) 122 H (75-99) mg/dL ALT (21-72) U/L Total Protein (6.3-8.2) g/dL Albumin (3.5-5.0) g/dL Urine Protein 3+ H (Negative) Urine Glucose (UA) Trace H (Negative) Urine Blood Moderate H (Negative) Ur Leukocyte Esterase Trace H (Negative) Urine RBC 9 H (0-5) /hpf Urine WBC 12 H (0-5) /hpf Urine Opiates Screen Detected H (NotDetected) U Methamphetamines Scrn Detected H (NotDetected) 04/26/18 04/26/18 04/26/18 Range/Units 07:08 07:08 07:08 WBC 16.6 H (3.8-10.6) k/uL RBC 3.98 L (4.30-5.90) m/uL Hgb 11.5 L (13.0-17.5) gm/dL Hct 36.5 L (39.0-53.0) % RDW 16.0 H (11.5-15.5) % Neutrophils # 14.8 H (1.3-7.7) k/uL Lymphocytes # 0.5 L (1.0-4.8) k/uL BUN 30 H (9-20) mg/dL Creatinine 5.72 H (0.66-1.25) mg/dL Glucose 181 H (74-99) mg/dL POC Glucose (mg/dL) 188 H (75-99) mg/dL ALT 16 L (21-72) U/L Total Protein 5.5 L (6.3-8.2) g/dL Albumin 3.2 L (3.5-5.0) g/dL Urine Protein (Negative) Urine Glucose (UA) (Negative) Urine Blood (Negative) Ur Leukocyte Esterase (Negative) Urine RBC (0-5) /hpf Urine WBC (0-5) /hpf Urine Opiates Screen (NotDetected) U Methamphetamines Scrn (NotDetected) Assessment and Plan Assessment: 1. Fall with femoral neck fracture. Hip x-ray completed showing displaced subcapital fracture at the right femoral neck. X-ray of right hip and pelvis completed showing impacted displaced subcapital fracture right proximal femur. No additional acute pelvic fracture or dislocation is seen. Orthopedics serv ices have been consulted 2. End-stage renal disease. Etiology of ANCA vasculitis. Will consult n ephrology services for surgical clearance and management 3. Essential hypertension. Cardiac meds resumed per cardiology 4. History of diabetes mellitus. Home medications of Lantus plus sliding scale coverage has been ordered 5. History of hypothyroidism. Synthroid resumed 6. History of hyperlipidemiaI performed an examination of the patient and discussed their management with the Nurse Practitioner. I have reviewed the Nurse Practitioner's notes and agree with the documented findings and plan of care 7. History of aortic valve replacement 2014 8. History of atrial fibrillation. Patient is maintained on eliquis. Eliquis currently on hold for surgery 9. Leukocytosis. White blood cell elevated at 16.6. Chest x-ray and urine culture has been ordered. Patient to be cleared by cardiology and nephrology services prior to surgery. We'll consult forensic social worker. Patient will likely need ECF upon discharge Repeat urine drug screen will be ordered I performed an examination of the patient and discussed their management with the Nurse Practitioner. I have reviewed the Nurse Practitioner's notes and agree with the documented findings and plan of care
[2018-04-26] MEDS: ceFAZolin IN SWFI 2 GM/20 ML SYRINGE IVP SCH (12:29)
[2018-04-26] MEDS: COLLAGENASE 250 UNIT/GM OINTMENT 30 GM TUBE TOPICAL SCH (12:29)
--- NOTE | 2018-04-26 14:35 | P.PN ---
Subjective This is a pleasant 82-year-old male past medical history significant for end-stage renal disease on hemodialysis, aortic valve replacement, hypertension, hypothyroidism, dyslipidemia, paroxysmal atrial fibrillation and diabetes mellitus. He underwent successful right hip hemiarthroplasty yesterday afternoon. He is seen and examined sitting up in bed eating lunch in no acute distress. He denies symptoms of chest discomfort, shortness of breath, dizziness or palpitations. He is confused at baseline. Laboratory data reviewed, WBC 16.6, hemoglobin 11.5, platelets 363, sodium 139, potassium 4.9, creatinine 5.72. Blood pressure 126/62 heart rate 88 afebrile maintaining oxygen saturation on room air. Currently maintained on Eliquis 2.5 mg twice a day, Toprol 25 mg daily, nifedipine XL 60 mg daily. GENERAL: Well-appearing, well-nourished and in no acute distress. NECK: Supple without JVD or thyromegaly. LUNGS: Breath sounds clear to auscultation bilaterally. Respiration equal and unlabored. No wheezes, rales or rhonchi. HEART: Regular rate and rhythm with systolic ejection murmur at the base, no rubs or gallops. S1 and S2 heard. EXTREMITIES: Normal range of motion, no edema. No clubbing or cyanosis. Peripheral pulses intact. ASSESSMENT Right hip fracture postoperative day #1 right hip hemiarthroplasty History of aortic valve replacement End-stage renal disease on hemodialysis Paroxysmal atrial fibrillation on long-term anticoagulation Dyslipidemia Hypertension Hypothyroidism Diabetes mellitus PLAN Resume anticoagulation as soon as possible when is ok with surgery team. Stable from a cardiac perspective. Follow-up with Dr. Meléndez upon discharge. We will continue to follow as needed, please feel free to call with further questions or concerns. Nurse Practitioner note has been reviewed, I agree with a documented findings and plan of care. Patient was seen and examined. Objective - Vital Signs Vital signs: Vital Signs Temp 97.7 F 04/26/18 07:00 Pulse 88 04/26/18 07:00 Resp 16 04/26/18 07:00 BP 126/62 04/26/18 07:00 Pulse Ox 91 L 04/26/18 07:00 Intake & Output 04/25/18 04/26/18 04/26/18 18:59 06:59 18:59 Intake Total 500 720 118 Output Total 150 200 Balance 350 520 118 Intake: IV 250 Amount of Fluid Infused ( 250 ml) Oral 720 118 Output: Urine 50 200 Estimated Blood Loss 100 Other: # Voids 1 - Labs CBC & Chem 7: 04/26/18 07:08 04/26/18 07:08 Labs: Abnormal Lab Results - Last 24 Hours (Table) 04/25/18 04/26/18 04/26/18 Range/Units 20:47 06:03 06:03 WBC (3.8-10.6) k/uL RBC (4.30-5.90) m/uL Hgb (13.0-17.5) gm/dL Hct (39.0-53.0) % RDW (11.5-15.5) % Neutrophils # (1.3-7.7) k/uL Lymphocytes # (1.0-4.8) k/uL BUN (9-20) mg/dL Creatinine (0.66-1.25) mg/dL Glucose (74-99) mg/dL POC Glucose (mg/dL) 122 H (75-99) mg/dL ALT (21-72) U/L Total Protein (6.3-8.2) g/dL Albumin (3.5-5.0) g/dL Urine Protein 3+ H (Negative) Urine Glucose (UA) Trace H (Negative) Urine Blood Moderate H (Negative) Ur Leukocyte Esterase Trace H (Negative) Urine RBC 9 H (0-5) /hpf Urine WBC 12 H (0-5) /hpf Urine Opiates Screen Detected H (NotDetected) U Methamphetamines Scrn Detected H (NotDetected) 04/26/18 04/26/18 04/26/18 Range/Units 07:08 07:08 07:08 WBC 16.6 H (3.8-10.6) k/uL RBC 3.98 L (4.30-5.90) m/uL Hgb 11.5 L (13.0-17.5) gm/dL Hct 36.5 L (39.0-53.0) % RDW 16.0 H (11.5-15.5) % Neutrophils # 14.8 H (1.3-7.7) k/uL Lymphocytes # 0.5 L (1.0-4.8) k/uL BUN 30 H (9-20) mg/dL Creatinine 5.72 H (0.66-1.25) mg/dL Glucose 181 H (74-99) mg/dL POC Glucose (mg/dL) 188 H (75-99) mg/dL ALT 16 L (21-72) U/L Total Protein 5.5 L (6.3-8.2) g/dL Albumin 3.2 L (3.5-5.0) g/dL Urine Protein (Negative) Urine Glucose (UA) (Negative) Urine Blood (Negative) Ur Leukocyte Esterase (Negative) Urine RBC (0-5) /hpf Urine WBC (0-5) /hpf Urine Opiates Screen (NotDetected) U Methamphetamines Scrn (NotDetected) 04/26/18 Range/Units 11:47 WBC (3.8-10.6) k/uL RBC (4.30-5.90) m/uL Hgb (13.0-17.5) gm/dL Hct (39.0-53.0) % RDW (11.5-15.5) % Neutrophils # (1.3-7.7) k/uL Lymphocytes # (1.0-4.8) k/uL BUN (9-20) mg/dL Creatinine (0.66-1.25) mg/dL Glucose (74-99) mg/dL POC Glucose (mg/dL) 150 H (75-99) mg/dL ALT (21-72) U/L Total Protein (6.3-8.2) g/dL Albumin (3.5-5.0) g/dL Urine Protein (Negative) Urine Glucose (UA) (Negative) Urine Blood (Negative) Ur Leukocyte Esterase (Negative) Urine RBC (0-5) /hpf Urine WBC (0-5) /hpf Urine Opiates Screen (NotDetected) U Methamphetamines Scrn (NotDetected)
--- NOTE | 2018-04-26 15:41 | XR ---
EXAMINATION TYPE: XR chest 1V portable DATE OF EXAM: 04/26/2018 COMPARISON: Prior chest x-ray 04/25/2018 HISTORY: Abnormal chest x-ray, rule out pneumonia TECHNIQUE: Single frontal view of the chest is obtained. FINDINGS: Patient is post median sternotomy. There is right jugular central venous catheter which is stable with the distal tip of the right atrium. There is no pneumothorax or pleural effusion. Heart size is stable. Interstitium is mildly increased. Mild patchy bibasilar density is noted. Patient is rotated. IMPRESSION: May be early interstitial edema, basilar atelectasis, correlate for possible early airsp denis disease, pulmonary edema, volume overload.
--- NOTE | 2018-04-26 15:47 | P.PN ---
Subjective Progress Note Date: 04/26/18 Principal diagnosis: S/P right hip hemiarthroplasty for right hip fracture Patient is seen at bedside this morning. He is postop day #1 from right hip hemiarthroplasty. He has pain at the surgical site as expected but denies any new complaints. He denies numbness, tingling or calf pain. Review of systems is negative for fever, chills, chest pain, shortness of breath or other Objective - Vital Signs Vital signs: Vital Signs Temp 97.8 F 04/26/18 14:58 Pulse 83 04/26/18 14:58 Resp 19 04/26/18 14:58 BP 105/59 04/26/18 14:58 Pulse Ox 92 L 04/26/18 14:58 Intake & Output 04/25/18 04/26/18 04/26/18 18:59 06:59 18:59 Intake Total 500 720 118 Output Total 150 200 Balance 350 520 118 Intake: IV 250 Amount of Fluid Infused ( 250 ml) Oral 720 118 Output: Urine 50 200 Estimated Blood Loss 100 Other: # Voids 1 - Exam Inspection reveals a benign surgical wound. There is no active bleeding or drainage. Neurovascular status is intact throughout the lower extremity with motor and sensation fully intact. Calf is soft and nontender. 2+ dorsalis pedis pulse and less than 2 second cap refill is present. - Constitutional General appearance: Present: no acute distress - Labs CBC & Chem 7: 04/26/18 07:08 04/26/18 07:08 Labs: Abnormal Lab Results - Last 24 Hours (Table) 04/25/18 04/26/18 04/26/18 Range/Units 20:47 06:03 06:03 WBC (3.8-10.6) k/uL RBC (4.30-5.90) m/uL Hgb (13.0-17.5) gm/dL Hct (39.0-53.0) % RDW (11.5-15.5) % Neutrophils # (1.3-7.7) k/uL Lymphocytes # (1.0-4.8) k/uL BUN (9-20) mg/dL Creatinine (0.66-1.25) mg/dL Glucose (74-99) mg/dL POC Glucose (mg/dL) 122 H (75-99) mg/dL ALT (21-72) U/L Total Protein (6.3-8.2) g/dL Albumin (3.5-5.0) g/dL Urine Protein 3+ H (Negative) Urine Glucose (UA) Trace H (Negative) Urine Blood Moderate H (Negative) Ur Leukocyte Esterase Trace H (Negative) Urine RBC 9 H (0-5) /hpf Urine WBC 12 H (0-5) /hpf Urine Opiates Screen Detected H (NotDetected) U Methamphetamines Scrn Detected H (NotDetected) 04/26/18 04/26/18 04/26/18 Range/Units 07:08 07:08 07:08 WBC 16.6 H (3.8-10.6) k/uL RBC 3.98 L (4.30-5.90) m/uL Hgb 11.5 L (13.0-17.5) gm/dL Hct 36.5 L (39.0-53.0) % RDW 16.0 H (11.5-15.5) % Neutrophils # 14.8 H (1.3-7.7) k/uL Lymphocytes # 0.5 L (1.0-4.8) k/uL BUN 30 H (9-20) mg/dL Creatinine 5.72 H (0.66-1.25) mg/dL Glucose 181 H (74-99) mg/dL POC Glucose (mg/dL) 188 H (75-99) mg/dL ALT 16 L (21-72) U/L Total Protein 5.5 L (6.3-8.2) g/dL Albumin 3.2 L (3.5-5.0) g/dL Urine Protein (Negative) Urine Glucose (UA) (Negative) Urine Blood (Negative) Ur Leukocyte Esterase (Negative) Urine RBC (0-5) /hpf Urine WBC (0-5) /hpf Urine Opiates Screen (NotDetected) U Methamphetamines Scrn (NotDetected) 04/26/18 Range/Units 11:47 WBC (3.8-10.6) k/uL RBC (4.30-5.90) m/uL Hgb (13.0-17.5) gm/dL Hct (39.0-53.0) % RDW (11.5-15.5) % Neutrophils # (1.3-7.7) k/uL Lymphocytes # (1.0-4.8) k/uL BUN (9-20) mg/dL Creatinine (0.66-1.25) mg/dL Glucose (74-99) mg/dL POC Glucose (mg/dL) 150 H (75-99) mg/dL ALT (21-72) U/L Total Protein (6.3-8.2) g/dL Albumin (3.5-5.0) g/dL Urine Protein (Negative) Urine Glucose (UA) (Negative) Urine Blood (Negative) Ur Leukocyte Esterase (Negative) Urine RBC (0-5) /hpf Urine WBC (0-5) /hpf Urine Opiates Screen (NotDetected) U Methamphetamines Scrn (NotDetected) Assessment and Plan Assessment: Right femoral neck fracture Diabetes mellitus Dialysis Cardiovascular disease (1) Femoral neck fracture Narrative/Plan: He will continue with routine postop orthopedic protocol including pain management, wound care, PT, DVT prophylaxis and medical management. He may transfer to [facility] from an orthopedic standpoint when ok with primary team. Current Visit: Yes Status: Acute Priority: Medium Code(s): S72.009A - FRACTURE OF UNSP PART OF NECK OF UNSP FEMUR, INIT SNOMED Code(s): 2291795 Time with Patient: Less than 30
[2018-04-26] MEDS: HYDROmorphone 0.5 MG/0.5 ML SYRINGE IVP PRN ×2 (16:06→21:45)
[2018-04-26 17:03] LABS: Glucose,Whole Blood 219 mg/dL (75-99)
[2018-04-26 20:05] LABS: Glucose,Whole Blood 206 mg/dL (75-99)
[2018-04-26] MEDS: APIXABAN 2.5 MG TABLET PO SCH (21:43)
[2018-04-26] MEDS: SENNOSIDES-DOCUSATE SODIUM 1 EACH TAB PO SCH (21:43)
[2018-04-26] MEDS: INSULIN DETEMIR (LEVEMIR) 100 UNIT/ML SYR SQ SCH (21:44)
[2018-04-27] MEDS: HYDROcodone/APAP 5-325MG 1 EACH TAB PO PRN (02:10)
[2018-04-27 03:24] LABS: Urine Alcohol Negative (Negative); Urine Barbiturate Negative (Negative); Urine Cocaine Negative (Negative); Urine Methadone Negative (Negative); Urine Opiates Positive (Negative); Urine Phencyclidine Negative (Negative)
[2018-04-27] MEDS: LEVOTHYROXINE 25 MCG TAB PO SCH (06:05)
[2018-04-27 07:02] LABS: Glucose,Whole Blood 144 mg/dL (75-99)
[2018-04-27] MEDS: COLLAGENASE 250 UNIT/GM OINTMENT 30 GM TUBE TOPICAL SCH (07:51)
[2018-04-27] MEDS: PANTOPRAZOLE 40 MG TABLET PO SCH (07:51)
[2018-04-27] MEDS: METOPROLOL SUCCINATE (ER) 25 MG TAB.ER.24H PO SCH (07:51)
[2018-04-27] MEDS: APIXABAN 2.5 MG TABLET PO SCH (07:52)
[2018-04-27] MEDS: INSULIN ASPART (NovoLOG) 100 UNIT/ML VIAL SQ SCH ×2 (07:52→12:04)
[2018-04-27 08:28] LABS: Basophils % (A) 0 %; Eosinophils # (A) 0.2 k/uL (0-0.7); Eosinophils % (A) 2 %; HCT 29.5 % (39.0-53.0); Lymphocytes # (A) 0.9 k/uL (1.0-4.8); Lymphocytes % (A) 8 %; MCH 29.1 pg (25.0-35.0); MCHC 32.9 g/dL (31.0-37.0); MCV 88.6 fL (80.0-100.0); Mean Platelet Volume 6.3; Monocytes % (A) 10 %; Neutrophils # (A) 8.2 k/uL (1.3-7.7); Neutrophils % (A) 78 %; Platelet Count 279 k/uL (150-450); RBC 3.33 m/uL (4.30-5.90); RDW 15.7 % (11.5-15.5); WBC 10.4 k/uL (3.8-10.6)
[2018-04-27 08:29] LABS: Albumin 2.7 g/dL (3.5-5.0); Calcium 8.4 mg/dL (8.4-10.2); Potassium 4.2 mmol/L (3.5-5.1); Total Bilirubin 0.4 mg/dL (0.2-1.3); Total Protein 4.9 g/dL (6.3-8.2)
[2018-04-27 08:30] VITALS: BP 120/60; PULSE 81; RESP 19; TEMP 98.2
[2018-04-27 08:34] LABS: HGB 9.7 gm/dL (13.0-17.5)
--- NOTE | 2018-04-27 08:45 | P.PN ---
Subjective Patient is seen in follow-up for end-stage renal disease. He is maintained on hemodialysis on a Monday schedule. Patient presented after sustaining a fall and was noted to have right femoral fracture. He underwent surgical intervention on April 25. Tolerated hemodialysis well yesterday. Denies any pain. No chest pain or shortness of breath. Vital signs are stable. General: The patient appeared well nourished and normally developed. HEENT: Head exam is unremarkable. Neck is without jugular venous distension. LUNGS: Lungs are clear to auscultation and percussion. Breath sounds decreased. HEART: Rate and Rhythm are regular. First and second heart sounds normal. No murmurs, rubs or gallops. ABDOMEN: Abdominal exam reveals normal bowel sounds. Non-tender and non- distended. No evidence of peritonitis. EXTREMITITES: No clubbing, cyanosis, or edema. Objective - Vital Signs Vital signs: Vital Signs Temp 98.2 F 04/27/18 08:29 Pulse 81 04/27/18 08:29 Resp 19 04/27/18 08:29 BP 120/60 04/27/18 08:29 Pulse Ox 94 L 04/27/18 08:29 Intake & Output 04/26/18 04/27/18 04/27/18 18:59 06:59 18:59 Intake Total 118 200 Output Total 0 150 Balance 118 50 Weight 98 kg Intake: Intake, IV Titration 150 Amount cefTRIAXone 1 gm In 150 Sodium Chloride 0.9% 50 ml @ 100 mls/hr IVPB Q24H [facility] Rx#:[id number] Oral 118 50 Output: Urine 0 150 Other: # Voids 0 0 - Labs CBC & Chem 7: 04/27/18 07:01 04/27/18 07:01 Labs: Abnormal Lab Results - Last 24 Hours (Table) 04/26/18 04/26/18 04/26/18 Range/Units 11:47 16:51 19:30 RBC (4.30-5.90) m/uL Hgb (13.0-17.5) gm/dL Hct (39.0-53.0) % RDW (11.5-15.5) % Neutrophils # (1.3-7.7) k/uL Lymphocytes # (1.0-4.8) k/uL Sodium (137-145) mmol/L Chloride (98-107) mmol/L BUN (9-20) mg/dL Creatinine (0.66-1.25) mg/dL Glucose (74-99) mg/dL POC Glucose (mg/dL) 150 H 219 H (75-99) mg/dL ALT (21-72) U/L Total Protein (6.3-8.2) g/dL Albumin (3.5-5.0) g/dL Urine Opiates Screen Positive H (Negative) ng/mL 04/26/18 04/27/18 04/27/18 Range/Units 20:03 06:50 07:01 RBC 3.33 L (4.30-5.90) m/uL Hgb 9.7 L D (13.0-17.5) gm/dL Hct 29.5 L (39.0-53.0) % RDW 15.7 H (11.5-15.5) % Neutrophils # 8.2 H (1.3-7.7) k/uL Lymphocytes # 0.9 L (1.0-4.8) k/uL Sodium (137-145) mmol/L Chloride (98-107) mmol/L BUN (9-20) mg/dL Creatinine (0.66-1.25) mg/dL Glucose (74-99) mg/dL POC Glucose (mg/dL) 206 H 144 H (75-99) mg/dL ALT (21-72) U/L Total Protein (6.3-8.2) g/dL Albumin (3.5-5.0) g/dL Urine Opiates Screen (Negative) ng/mL 04/27/18 Range/Units 07:01 RBC (4.30-5.90) m/uL Hgb (13.0-17.5) gm/dL Hct (39.0-53.0) % RDW (11.5-15.5) % Neutrophils # (1.3-7.7) k/uL Lymphocytes # (1.0-4.8) k/uL Sodium 131 L (137-145) mmol/L Chloride 94 L (98-107) mmol/L BUN 33 H (9-20) mg/dL Creatinine 5.01 H (0.66-1.25) mg/dL Glucose 105 H (74-99) mg/dL POC Glucose (mg/dL) (75-99) mg/dL ALT 14 L (21-72) U/L Total Protein 4.9 L (6.3-8.2) g/dL Albumin 2.7 L (3.5-5.0) g/dL Urine Opiates Screen (Negative) ng/mL Microbiology - Last 24 Hours (Table) 04/26/18 19:30 Urine Culture - Preliminary Urine,Catheterized Assessment and Plan Plan: Assessment: 1. End-stage renal disease maintained on hemodialysis on a Monday schedule. 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 2. Right proximal femur fracture secondary to fall. Status post right hip hemiarthroplasty on April 25. 3. Hypertension with chronic kidney disease. Controlled. 4. Insulin-dependent diabetes mellitus. 5. Hyponatremia secondary to chronic kidney disease. 6. Anemia of chronic kidney disease. Hgb below goal. Plan: Hemodialysis tomorrow. Phosphorus level at goal. Add Aranesp.
--- NOTE | 2018-04-27 11:08 | P.PN ---
Subjective Progress Note Date: 04/27/18 This is a 82-year-old male patient who presents to the hospital after a fall. 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 Patient does have 24-hour care. Patient does have a past medical history of atrial fibrillation in which he's on eliquis, end-stage renal disease with hemodialysis, heart failure, CVA, diabetes mellitus, hyperlipidemia, hypertension, pneumonia, prostate disorder and thyroid disorder. X-ray completed showing displaced subcapital fracture at the right femoral neck. Hip x-ray completed showing redemonstration of impacted displaced subcapital fracture right proximal femur. No additional acute pelvic fracture or dislocation is seen. Ortho services have been consulted. Chest x-ray was completed showing chronic changes without evidence for acute pulmonary disease. Nephrology and cardiology services have been consulted for surgical clearance. At this time patient is resting comfortably in bed. Patient is complaining of some hip pain. Surgical services are when patient to [facility] yesterday for his Atrial fibrillation. She denies chest pain or shortness of breath. Patient denies nausea, vomiting or diarrhea. On 04/26/2018 patient is currently receiving hemodialysis. Patient is postop day 1 status post right hip hemiarthroplasty arthroplasty. At this time patient is complaining of some hip discomfort. Patient denies chest pain or shortness breath. Patient denies cough. Patient denies any urinary burning or frequency. Patient denies nausea vomiting or diarrhea On 04/27/2018 patient is currently resting comfortably in bed. Patient did receive hemodialysis yesterday. Patient is currently postop day 2 from right hip arthroplasty. At this time patient denies chest pain or shortness breath. Patient denies nausea vomiting or diarrhea. Patient denies any urinary burning or frequency Objective - Vital Signs Vital signs: Vital Signs Temp 98.2 F 04/27/18 08:29 Pulse 81 04/27/18 08:29 Resp 19 04/27/18 08:29 BP 120/60 04/27/18 08:29 Pulse Ox 94 L 04/27/18 08:29 Intake & Output 04/26/18 04/27/18 04/27/18 18:59 06:59 18:59 Intake Total 118 200 180 Output Total 0 150 Balance 118 50 180 Weight 98 kg Intake: Intake, IV Titration 150 Amount cefTRIAXone 1 gm In 150 Sodium Chloride 0.9% 50 ml @ 100 mls/hr IVPB Q24H [facility] Rx#:[id number] Oral 118 50 180 Output: Urine 0 150 Other: # Voids 0 0 - Exam Head normocephalic Neck supple Lungs clear to auscultation bilaterally no wheezing or crackles Heart regular rate and rhythm S1-S2, no rub or gallop Abdomen is soft nontender nondistended positive bowel sounds no hepatosplenomegaly Extremities no edema. Right hip dressing clean dry and intact Neuro alert and orientated to 3 - Labs CBC & Chem 7: 04/27/18 07:01 04/27/18 07:01 Labs: Abnormal Lab Results - Last 24 Hours (Table) 04/26/18 04/26/18 04/26/18 Range/Units 11:47 16:51 19:30 RBC (4.30-5.90) m/uL Hgb (13.0-17.5) gm/dL Hct (39.0-53.0) % RDW (11.5-15.5) % Neutrophils # (1.3-7.7) k/uL Lymphocytes # (1.0-4.8) k/uL Sodium (137-145) mmol/L Chloride (98-107) mmol/L BUN (9-20) mg/dL Creatinine (0.66-1.25) mg/dL Glucose (74-99) mg/dL POC Glucose (mg/dL) 150 H 219 H (75-99) mg/dL ALT (21-72) U/L Total Protein (6.3-8.2) g/dL Albumin (3.5-5.0) g/dL Urine Opiates Screen Positive H (Negative) ng/mL 04/26/18 04/27/18 04/27/18 Range/Units 20:03 06:50 07:01 RBC 3.33 L (4.30-5.90) m/uL Hgb 9.7 L D (13.0-17.5) gm/dL Hct 29.5 L (39.0-53.0) % RDW 15.7 H (11.5-15.5) % Neutrophils # 8.2 H (1.3-7.7) k/uL Lymphocytes # 0.9 L (1.0-4.8) k/uL Sodium (137-145) mmol/L Chloride (98-107) mmol/L BUN (9-20) mg/dL Creatinine (0.66-1.25) mg/dL Glucose (74-99) mg/dL POC Glucose (mg/dL) 206 H 144 H (75-99) mg/dL ALT (21-72) U/L Total Protein (6.3-8.2) g/dL Albumin (3.5-5.0) g/dL Urine Opiates Screen (Negative) ng/mL 04/27/18 Range/Units 07:01 RBC (4.30-5.90) m/uL Hgb (13.0-17.5) gm/dL Hct (39.0-53.0) % RDW (11.5-15.5) % Neutrophils # (1.3-7.7) k/uL Lymphocytes # (1.0-4.8) k/uL Sodium 131 L (137-145) mmol/L Chloride 94 L (98-107) mmol/L BUN 33 H (9-20) mg/dL Creatinine 5.01 H (0.66-1.25) mg/dL Glucose 105 H (74-99) mg/dL POC Glucose (mg/dL) (75-99) mg/dL ALT 14 L (21-72) U/L Total Protein 4.9 L (6.3-8.2) g/dL Albumin 2.7 L (3.5-5.0) g/dL Urine Opiates Screen (Negative) ng/mL Microbiology - Last 24 Hours (Table) 04/26/18 19:30 Urine Culture - Preliminary Urine,Catheterized Assessment and Plan Assessment: 1. Fall with femoral neck fracture. Hip x-ray completed showing displaced subcapital fracture at the right femoral neck. X-ray of right hip and pelvis completed showing impacted displaced subcapital fracture right proximal femur. No additional acute pelvic fracture or dislocation is seen. Orthopedics services have been consulted 2. End-stage renal disease. Etiology of ANCA vasculitis. Will consult nephrology services for surgical clearance and management 3. Essential hypertension. Cardiac meds resumed per cardiology 4. History of diabetes mellitus. Home medications of Lantus plus sliding scale coverage has been ordered 5. History of hypothyroidism. Synthroid resumed 6. History of hyperlipidemiaI performed an examination of the patient and discussed their management with the Nurse Practitioner. I have reviewed the Nurse Practitioner's notes and agree with the documented findings and plan of care 7. History of aortic valve replacement 2014 8. History of atrial fibrillation. Patient is maintained on eliquis. Eliquis currently on hold for surgery 9. Leukocytosis. White blood cell elevated at 16.6. Chest x-ray completed showing early interstitial edema, basilar atelectasis, correlate for possible early airspace disease, pulmonary edema, volume overload. Patient did receive hemodialysis. white Blood cell is improving to 10.4. currently on Rocephin Patient to be cleared by cardiology and nephrology services prior to surgery. We'll consult manager social. Patient will likely need ECF upon discharge Repeat urine drug screen will be ordered I performed an examination of the patient and discussed their management with the Nurse Practitioner. I have reviewed the Nurse Practitioner's notes and agree with the documented findings and plan of care
--- NOTE | 2018-04-27 11:17 | P.PN ---
Subjective Progress Note Date: 04/27/18 Principal diagnosis: S/P right hip hemiarthroplasty for right hip fracture Patient is seen at bedside this morning. He is postop day #2 from right hip hemiarthroplasty. He has improved pain at the surgical site. He denies any new complaints. He denies numbness, tingling or calf pain. Review of systems is negative for fever, chills, chest pain, shortness of breath or other Objective - Vital Signs Vital signs: Vital Signs Temp 98.2 F 04/27/18 08:29 Pulse 81 04/27/18 08:29 Resp 19 04/27/18 08:29 BP 120/60 04/27/18 08:29 Pulse Ox 94 L 04/27/18 08:29 Intake & Output 04/26/18 04/27/18 04/27/18 18:59 06:59 18:59 Intake Total 118 200 180 Output Total 0 150 Balance 118 50 180 Weight 98 kg Intake: Intake, IV Titration 150 Amount cefTRIAXone 1 gm In 150 Sodium Chloride 0.9% 50 ml @ 100 mls/hr IVPB Q24H [facility] Rx#:[id number] Oral 118 50 180 Output: Urine 0 150 Other: # Voids 0 0 - Exam Inspection reveals a benign surgical wound. There is no active bleeding or d rainage. Neurovascular status is intact throughout the lower extremity with motor and sensation fully intact. Calf is soft and nontender. 2+ dorsalis pedis pulse and less than 2 second cap refill is present. - Constitutional General appearance: Present: no acute distress - Labs CBC & Chem 7: 04/27/18 07:01 04/27/18 07:01 Labs: Abnormal Lab Results - Last 24 Hours (Table) 04/26/18 04/26/18 04/26/18 Range/Units 11:47 16:51 19:30 RBC (4.30-5.90) m/uL Hgb (13.0-17.5) gm/dL Hct (39.0-53.0) % RDW (11.5-15.5) % Neutrophils # (1.3-7.7) k/uL Lymphocytes # (1.0-4.8) k/uL Sodium (137-145) mmol/L Chloride (98-107) mmol/L BUN (9-20) mg/dL Creatinine (0.66-1.25) mg/dL Glucose (74-99) mg/dL POC Glucose (mg/dL) 150 H 219 H (75-99) mg/dL ALT (21-72) U/L Total Protein (6.3-8.2) g/dL Albumin (3.5-5.0) g/dL Urine Opiates Screen Positive H (Negative) ng/mL 04/26/18 04/27/18 04/27/18 Range/Units 20:03 06:50 07:01 RBC 3.33 L (4.30-5.90) m/uL Hgb 9.7 L D (13.0-17.5) gm/dL Hct 29.5 L (39.0-53.0) % RDW 15.7 H (11.5-15.5) % Neutrophils # 8.2 H (1.3-7.7) k/uL Lymphocytes # 0.9 L (1.0-4.8) k/uL Sodium (137-145) mmol/L Chloride (98-107) mmol/L BUN (9-20) mg/dL Creatinine (0.66-1.25) mg/dL Glucose (74-99) mg/dL POC Glucose (mg/dL) 206 H 144 H (75-99) mg/dL ALT (21-72) U/L Total Protein (6.3-8.2) g/dL Albumin (3.5-5.0) g/dL Urine Opiates Screen (Negative) ng/mL 04/27/18 Range/Units 07:01 RBC (4.30-5.90) m/uL Hgb (13.0-17.5) gm/dL Hct (39.0-53.0) % RDW (11.5-15.5) % Neutrophils # (1.3-7.7) k/uL Lymphocytes # (1.0-4.8) k/uL Sodium 131 L (137-145) mmol/L Chloride 94 L (98-107) mmol/L BUN 33 H (9-20) mg/dL Creatinine 5.01 H (0.66-1.25) mg/dL Glucose 105 H (74-99) mg/dL POC Glucose (mg/dL) (75-99) mg/dL ALT 14 L (21-72) U/L Total Protein 4.9 L (6.3-8.2) g/dL Albumin 2.7 L (3.5-5.0) g/dL Urine Opiates Screen (Negative) ng/mL Microbiology - Last 24 Hours (Table) 04/26/18 19:30 Urine Culture - Preliminary Urine,Catheterized Assessment and Plan Assessment: Right femoral neck fracture Diabetes mellitus Dialysis Cardiovascular disease (1) Femoral neck fracture Narrative/Plan: He will continue with routine postop orthopedic protocol including pain management, wound care, PT, DVT prophylaxis and medical management. He may transfer to [facility] from an orthopedic standpoint when ok with primary team. Current Visit: Yes Status: Acute Priority: Medium Code(s): S72.009A - FRACTURE OF UNSP PART OF NECK OF UNSP FEMUR, INIT SNOMED Code(s): 7809640
[2018-04-27 11:57] LABS: Glucose,Whole Blood 119 mg/dL (75-99)
[2018-04-27] MEDS ORDERED: DARBEPOETIN ALFA 40 MCG/0.4 ML SYRINGE SQ SCH (12:00)
[2018-04-27] MEDS: MULTIVITAMINS, THERA 1 EACH TAB PO SCH (13:03)
--- NOTE | 2018-04-27 13:16 | P.DS ---
Providers Date of admission: 04/25/18 06:46 Expected date of discharge: 04/27/18 Attending physician: Jomar Rangel Consults: 04/25/18 06:43 Consult Physician Stat Consulting Provider: Vinicius Hicks Consult Reason/Comments: dialysis Do you want consulting provider notified?: Yes, Notify in am Consult Physician Stat Consulting Provider: Sánchez Valdivia Consult Reason/Comments: fem neck fx Do you want consulting provider notified?: Already Contacted 04/25/18 08:37 Consult Physician Stat Consulting Provider: Jomar Rangel Consult Reason/Comments: pre op clearance Do you want consulting provider notified?: Yes 04/25/18 09:06 Consult Physician Routine Consulting Provider: Pepito Meléndez Consult Reason/Comments: cardiac pre op clearance Do you want consulting provider notified?: Yes 04/25/18 14:19 Consult Physician Routine Consulting Provider: Jesus Davidson Consult Reason/Comments: Right foot heel wound follows in clinic Do you want consulting provider notified?: Yes Primary care physician: Jomar Rangel Hospital Course: discharge diagnosis 1. Fall with femoral neck fracture status post right hip arthroplasty. Hip x- ray completed showing displaced subcapital fracture at the right femoral neck. X-ray of right hip and pelvis completed showing impacted displaced subcapital fracture right proximal femur. No additional acute pelvic fracture or dislocation is seen. patient is postop day 2 from total right hip arthroplasty. patient has been cleared for discharge from orthopedic services.patient on eliquis for DVT prophylayxis 2. End-stage renal disease. Etiology of ANCA vasculitis. patient received hemodialysis yesterday. 3. Essential hypertension. Cardiac meds resumed per cardiology 4. History of diabetes mellitus. Home medications of Lantus plus sliding scale coverage has been ordered 5. History of hypothyroidism. Synthroid resumed 6. History of hyperlipidemiaI performed an examination of the patient and discussed their management with the Nurse Practitioner. I have reviewed the Nurse Practitioner's notes and agree with the documented findings and plan of care 7. History of aortic valve replacement 2014 8. History of atrial fibrillation. Patient is maintained on eliquis. Eliquis currently on hold for surgery 9. Leukocytosis. White blood cell elevated at 16.6. Chest x-ray completed showing early interstitial edema, basilar atelectasis, correlate for possible early airspace disease, pulmonary edema, volume overload. Patient did receive hemodialysis. white Blood cell is improving to 10.4. hospital course This is a 82-year-old male patient who presents to the hospital after a fall. 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 Patient does have 24-hour care. Patient does have a past medical history of atrial fibrillation in which he's on eliquis, end-stage renal disease with hemodialysis, heart failure, CVA, diabetes mellitus, hyperlipidemia, hypertension, pneumonia, prostate disorder and thyroid disorder. X-ray completed showing displaced subcapital fracture at the right femoral neck. Hip x-ray completed showing redemonstration of impacted displaced subcapital fracture right proximal femur. No additional acute pelvic fracture or dislocation is seen. Ortho services have been consulted. Chest x-ray was completed showing chronic changes without evidence for acute pulmonary disease. Nephrology and cardiology services have been consulted for surgical clearance. At this time patient is resting comfortably in bed. Patient is complaining of some hip pain. Surgical services are when patient to [facility] yesterday for his Atrial fibrillation. She denies chest pain or shortness of breath. Patient denies nausea, vomiting or diarrhea. On 04/26/2018 patient is currently receiving hemodialysis. Patient is postop day 1 status post right hip hemiarthroplasty arthroplasty. At this time patient is complaining of some hip discomfort. Patient denies chest pain or shortness breath. Patient denies cough. Patient denies any urinary burning or frequency. Patient denies nausea vomiting or diarrhea On 04/27/2018 patient is currently resting comfortably in bed. Patient did receive hemodialysis yesterday. Patient is currently postop day 2 from right hip arthroplasty. At this time patient denies chest pain or shortness breath. Patient denies nausea vomiting or diarrhea. Patient denies any urinary burning or frequency patient has been cleared for discharge from orthopedic services. Patient will be discharged to [facility] for Rehab. At this time patient denies chest pain or shortness breath Patient denies nausea vomiting or diarrhea. Patient denies any urinary burning or frequency. I performed an examination of the patient and discussed their management with the Nurse Practitioner. I have reviewed the Nurse Practitioner's notes and agree with the documented findings and plan of care Patient Condition at Discharge: Stable Plan - Discharge Summary New Discharge Prescriptions: New Darbepoetin Omi [Aranesp] 40 mcg SQ Q7D syringe Multivitamins, Thera [Multivitamin (formulary)] 1 each PO DAILY@1200 tab HYDROcodone/APAP 5-325MG [[place] 5-325] 1 each PO Q6HR PRN 30 Days #120 tab PRN Reason: Pain Scale 1 To 5 INSULIN ASPART (NovoLOG) [NovoLOG (formulary)] 0 unit SQ ACHS vial Sennosides-Docusate Sodium [Senokot-S] 2 each PO HS tab Continue Levothyroxine Sodium [Synthroid] 25 mcg PO DAILY Simvastatin [Zocor] 20 mg PO HS Insulin Glargine [Lantus] 10 unit SQ HS #1 vial INSULIN ASPART (NovoLOG) [NovoLOG (formulary)] 5 unit SQ AC-TID vial Apixaban [Eliquis] 2.5 mg PO BID NIFEdipine XL [Procardia XL] 60 mg PO DAILY Metoprolol Succinate [Toprol XL] 25 mg PO DAILY Pantoprazole Sodium [Protonix] 40 mg PO DAILY Discharge Medication List Levothyroxine Sodium [Synthroid] 25 mcg PO DAILY 05/05/14 [History] Simvastatin [Zocor] 20 mg PO HS 05/05/14 [History] Insulin Glargine [Lantus] 10 unit SQ HS #1 vial 02/19/18 [Rx] INSULIN ASPART (NovoLOG) [NovoLOG (formulary)] 5 unit SQ AC-TID vial 03/13/18 [Rx] Apixaban [Eliquis] 2.5 mg PO BID 04/08/18 [History] Metoprolol Succinate [Toprol XL] 25 mg PO DAILY 04/08/18 [History] NIFEdipine XL [Procardia XL] 60 mg PO DAILY 04/08/18 [History] Pantoprazole Sodium [Protonix] 40 mg PO DAILY 04/25/18 [History] Darbepoetin Omi [Aranesp] 40 mcg SQ Q7D syringe 04/27/18 [Rx] HYDROcodone/APAP 5-325MG [[place] 5-325] 1 each PO Q6HR PRN 30 Days #120 tab 04/27/18 [Rx] INSULIN ASPART (NovoLOG) [NovoLOG (formulary)] 0 unit SQ ACHS vial 04/27/18 [Rx] Multivitamins, Thera [Multivitamin (formulary)] 1 each PO DAILY@1200 tab 04/27/18 [Rx] Sennosides-Docusate Sodium [Senokot-S] 2 each PO HS tab 04/27/18 [Rx] Follow up Appointment(s)/Referral(s): [facility] [NON-STAFF] - 1 Week (please follow up on wednesdays with Dr. Davidson in the wound care center) Jomar Rangel MD [Primary Care Provider] - 1-2 days Sánchez Valdivia MD [STAFF PHYSICIAN] - 10 Days Activity/Diet/Wound Care/Special Instructions: Keep wound clean and dry Take meds as directed Follow-up with Dr. Valdivia in office Weight bear as tolerated May shower in 3 days if no bleeding DC'd to [facility] Discharge Disposition: TRANSFER TO SNF/ECF
== END 2018-04-27 15:07 | DRG 469 ==
LOC: EC 05:35 → 4SSUR 06:46
PROVIDERS: ADMIT Internal Medicine; ATTEND Internal Medicine
PROC: 0SRR0JA Replacement of Right Hip Joint, Femoral Surface with Synthetic Substitute, Uncemented, Open Approach (ICD-10-PCS; principal; 2018-04-25 09:30)
PROC: 5A1D70Z Performance of Urinary Filtration, Intermittent, Less than 6 Hours Per Day (ICD-10-PCS; 2018-04-27)
DX: S72.011A Unspecified intracapsular fracture of right femur, initial encounter for closed fracture (principal); N18.6 End stage renal disease; E87.1 Hypo-osmolality and hyponatremia; I13.2 Hypertensive heart and chronic kidney disease with heart failure and with stage 5 chronic kidney disease, or end stage renal disease; J98.11 Atelectasis; L97.419 Non-pressure chronic ulcer of right heel and midfoot with unspecified severity; W01.0XXA Fall on same level from slipping, tripping and stumbling without subsequent striking against object, initial encounter; Y92.009 Unspecified place in unspecified non-institutional (private) residence as the place of occurrence of the external cause; D63.1 Anemia in chronic kidney disease; D72.829 Elevated white blood cell count, unspecified; E03.9 Hypothyroidism, unspecified; E11.22 Type 2 diabetes mellitus with diabetic chronic kidney disease; E11.621 Type 2 diabetes mellitus with foot ulcer; E78.5 Hyperlipidemia, unspecified; F17.200 Nicotine dependence, unspecified, uncomplicated; I25.10 Atherosclerotic heart disease of native coronary artery without angina pectoris; I48.0 Paroxysmal atrial fibrillation; I50.9 Heart failure, unspecified; I77.6 Arteritis, unspecified; Z79.01 Long term (current) use of anticoagulants; Z79.4 Long term (current) use of insulin; Z79.890 Hormone replacement therapy; Z79.899 Other long term (current) drug therapy; Z82.49 Family history of ischemic heart disease and other diseases of the circulatory system; Z86.010 Personal history of colon polyps; Z86.73 Personal history of transient ischemic attack (TIA), and cerebral infarction without residual deficits; Z95.2 Presence of prosthetic heart valve; Z96.651 Presence of right artificial knee joint; Z99.2 Dependence on renal dialysis; Z98.42 Cataract extraction status, left eye; Z98.41 Cataract extraction status, right eye
CPT/HCPCS: 71045; 72170; 73501; 80053; 80306; 80320; 81001; 84100; 84484; 85025; 85610; 85730; 86850; 86900; 86901; 87086; 88305; 88311; 90935; 93005; 93306; 96374; 99285

== ENCOUNTER 2018-07-27 05:14 | Emergency (ER) | payer MEDICARE ==
--- NOTE | 2018-07-27 05:34 | ED ---
General Adult HPI - General Chief complaint: Fall Stated complaint: Fall Time Seen by Provider: 07/27/18 05:31 Source: patient, EMS Mode of arrival: EMS Limitations: no limitations - History of Present Illness Initial comments: Dictation was produced using Glyde dictation software. please excuse any grammatical, word or spelling errors. Chief Complaint: Patient is 82-year-old male multiple comorbidities presents after fall. History of Present Illness: 82-year-old male. Patient was transferred via EMS from [facility]. Patient was walking around his room when he all of a sudden felt weak. He states he felt as ground struck his head on the dresser. Patient does take anticoagulation medication. She has multiple comorbidities including atrial fibrillation, heart stroke, pneumonia and thyroid disease. Stephon steven has no complaints at this time. Does remember striking his head. Denies any loss of consciousness. Patient had his orthostatics measured at the [facility] were found to be positive. Patient denies any focal neurologic deficits. Denies any headache. No neck pain. Patient has no pain complaints whatsoever. The ROS documented in this emergency department record has been reviewed and confirmed by me. Those systems with pertinent positive or negative responses have been documented in the HPI. All other systems are other negative and/or noncontributory. PHYSICAL EXAM: General Impression: Alert and oriented x3, not in acute distress HEENT: Normocephalic atraumatic, extra-ocular movements intact, pupils equal and reactive to light bilaterally, mucous membranes moist. Cardiovascular: Heart regular rate and rhythm, S1&S2 audible, no murmurs, rubs or gallops Chest: Lungs clear to auscultation bilaterally, no rhonchi, no wheeze, no rales Abdomen: Bowel sounds present, abdomen soft, non-tender, non-distended, no organomegaly Musculoskeletal: Pulses present and equal in all extremities, no peripheral edema Motor: no focal deficits noted Neurological: CN II-XII grossly intact, no focal motor or sensory deficits noted Skin: Intact with no visualized rashes Psych: Normal affect and mood ED course: 82 yo male presents after fall. Vital signs upon arrival are within acceptable limits. EKGs benign.Laboratory evaluation obtained. Mild leukocytosis of 13.2, O2 secondary to stress. Coag panel is unremarkable. Metabolic panel is unremarkable. Patient has history of ESRD creatinine 3.94. He just had dialysis yesterday. Patient's power of active directory systems administrator is at bedside. She reports that he was placed in a [facility] due to issues with presyncope, syncope and orthostatic hypotension. Power of active directory systems administrator reports that patient has had this for several months now and it is reasonable ways at the [facility] so he can have close monitoring given that he is a fall risk. Patient's medications were reviewed. Patient is on multiple pressure medications. At this time I would advise patient stop his nifedipine. Patient should still continue his metoprolol given that his history of coronary artery disease and atrial fibrillation. Patient does have a primary care physician that comes at the [facility] to evaluate him. I believe this is reasonable disposition given that patient has a known history of orthostatic hypotension and fall risk. Patient is under the care of usp facility. CT imaging and labs does not suggest any acute traumatic injuries. She reevaluated in stable medical condition. Patient ambulatory at baseline at bedside. Patient and power of active directory systems administrator are agreeable to disposition. Return parameters discussed. EKG interpretation: Ventricular rate there comes sinus rhythm with first-degree AV block, MI interval to 76, QS 80, QTc 456. No MI prolongation, no QTC prolongation, no ST or T-wave changes noted. EKG compared to 04/25/2018 showing no changes. Overall, this EKG is unremarkable - Related Data Home Medications Medication Instructions Recorded Confirmed Levothyroxine Sodium [Synthroid] 25 mcg PO DAILY 05/05/14 04/25/18 Simvastatin [Zocor] 20 mg PO HS 05/05/14 04/25/18 Apixaban [Eliquis] 2.5 mg PO BID 04/08/18 04/25/18 Metoprolol Succinate [Toprol XL] 25 mg PO DAILY 04/08/18 04/25/18 NIFEdipine XL [Procardia XL] 60 mg PO DAILY 04/08/18 04/25/18 Pantoprazole Sodium [Protonix] 40 mg PO DAILY 04/25/18 04/25/18 Previous Rx's Medication Instructions Recorded Insulin Glargine [Lantus] 10 unit SQ HS #1 vial 02/19/18 INSULIN ASPART (NovoLOG) [NovoLOG 5 unit SQ AC-TID vial 03/13/18 (formulary)] Darbepoetin Omi [Aranesp] 40 mcg SQ Q7D syringe 04/27/18 HYDROcodone/APAP 5-325MG [[place] 1 each PO Q6HR PRN 30 Days #120 tab 04/27/18 5-325] INSULIN ASPART (NovoLOG) [NovoLOG 0 unit SQ ACHS vial 04/27/18 (formulary)] Multivitamins, Thera [Multivitamin 1 each PO DAILY@1200 tab 04/27/18 (formulary)] Sennosides-Docusate Sodium 2 each PO HS tab 04/27/18 [Senokot-S] Allergies Allergy/AdvReac Type Severity Reaction Status Date / Time No Known Allergies Allergy Verified 04/25/18 07:40 Review of Systems ROS Statement: Those systems with pertinent positive or pertinent negative responses have been documented in the HPI. ROS Other: All systems not noted in ROS Statement are negative. 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 ESRD with hemodialysis, current wound on R heel, prostrate cancer with surgery, iron anemia, benign colon polyps, diverticular disease, hypothyroid, aortic stenosis with valve replacement.rt heel wound-goes to [facility] on mon-last appointment 04/18/2018 with orders for Santyl dressing changes daily History of Any Multi-Drug Resistant Organisms: None Reported Past Surgical History: Cardiac Valve Replacement, Heart Catheterization, Hernia Repair, Joint Replacement, Prostate Surgery, Tonsillectomy Additional Past Surgical History / Comment(s): R hemodialysis catheter, 2014 aortic valve replaced, prostatectomy, colonoscopy with benign polypectomy, bilateral cataract removals, L eye retinal surgery, total R knee replacement. Past Anesthesia/Blood Transfusion Reactions: No Reported Reaction Past Psychological History: No Psychological Hx Reported Smoking Status: Never smoker Past Alcohol Use History: None Reported Past Drug Use History: None Reported - Past Family History Father Family Medical History: No Reported History Additional Family Medical History / Comment(s): age 92.5 years old- from old age Mother Family Medical History: Myocardial Infarction ([place]) General Exam Limitations: no limitations Course Vital Signs 07/27/18 07/27/18 05:19 06:41 Temperature 97.6 F Pulse Rate 63 Pulse Rate [ 60 Pulse Oximetery ] Respiratory 16 18 Rate Blood Pressure 122/75 Blood Pressure 119/76 [Sitting] Blood Pressure 94/29 [Standing] Blood Pressure 139/77 [Supine] O2 Sat by Pulse 98 99 Oximetry Medical Decision Making - Lab Data Result diagrams: 07/27/18 05:40 07/27/18 05:40 Lab Results 07/27/18 07/27/18 07/27/18 Range/Units 05:40 05:40 05:40 WBC 13.2 H (3.8-10.6) k/uL RBC 5.18 (4.30-5.90) m/uL Hgb 14.4 (13.0-17.5) gm/dL Hct 43.4 (39.0-53.0) % MCV 83.8 (80.0-100.0) fL MCH 27.8 (25.0-35.0) pg MCHC 33.2 (31.0-37.0) g/dL RDW 16.8 H (11.5-15.5) % Plt Count 335 (150-450) k/uL Neutrophils % 79 % Lymphocytes % 9 % Monocytes % 6 % Eosinophils % 2 % Basophils % 1 % Neutrophils # 10.5 H (1.3-7.7) k/uL Lymphocytes # 1.2 (1.0-4.8) k/uL Monocytes # 0.8 (0-1.0) k/uL Eosinophils # 0.3 (0-0.7) k/uL Basophils # 0.1 (0-0.2) k/uL Anisocytosis Slight PT 10.4 (9.0-12.0) sec INR 1.0 (<1.2) Sodium 138 (137-145) mmol/L Potassium 4.9 (3.5-5.1) mmol/L Chloride 96 L (98-107) mmol/L Carbon Dioxide 29 (22-30) mmol/L Anion Gap 13 mmol/L BUN 19 (9-20) mg/dL Creatinine 3.94 H (0.66-1.25) mg/dL Est GFR (CKD-EPI)AfAm 16 (>60 ml/min/1.73 sqM) Est GFR (CKD-EPI)NonAf 14 (>60 ml/min/1.73 sqM) Glucose 145 H (74-99) mg/dL Calcium 9.7 (8.4-10.2) mg/dL Magnesium 1.9 (1.6-2.3) mg/dL Total Bilirubin 0.6 (0.2-1.3) mg/dL AST 15 L (17-59) U/L ALT 7 L (21-72) U/L Alkaline Phosphatase 74 (38-126) U/L Troponin I (0.000-0.034) ng/mL Total Protein 7.1 (6.3-8.2) g/dL Albumin 4.4 (3.5-5.0) g/dL 07/27/18 Range/Units 05:40 WBC (3.8-10.6) k/uL RBC (4.30-5.90) m/uL Hgb (13.0-17.5) gm/dL Hct (39.0-53.0) % MCV (80.0-100.0) fL MCH (25.0-35.0) pg MCHC (31.0-37.0) g/dL RDW (11.5-15.5) % Plt Count (150-450) k/uL Neutrophils % % Lymphocytes % % Monocytes % % Eosinophils % % Basophils % % Neutrophils # (1.3-7.7) k/uL Lymphocytes # (1.0-4.8) k/uL Monocytes # (0-1.0) k/uL Eosinophils # (0-0.7) k/uL Basophils # (0-0.2) k/uL Anisocytosis PT (9.0-12.0) sec INR (<1.2) Sodium (137-145) mmol/L Potassium (3.5-5.1) mmol/L Chloride (98-107) mmol/L Carbon Dioxide (22-30) mmol/L Anion Gap mmol/L BUN (9-20) mg/dL Creatinine (0.66-1.25) mg/dL Est GFR (CKD-EPI)AfAm (>60 ml/min/1.73 sqM) Est GFR (CKD-EPI)NonAf (>60 ml/min/1.73 sqM) Glucose (74-99) mg/dL Calcium (8.4-10.2) mg/dL Magnesium (1.6-2.3) mg/dL Total Bilirubin (0.2-1.3) mg/dL AST (17-59) U/L ALT (21-72) U/L Alkaline Phosphatase (38-126) U/L Troponin I 0.014 (0.000-0.034) ng/mL Total Protein (6.3-8.2) g/dL Albumin (3.5-5.0) g/dL Disposition Clinical Impression: Fall Disposition: HOME SELF-CARE Condition: Good Instructions (If sedation given, give patient instructions): Fall Prevention for Older Adults (ED) Additional Instructions: discontinue nifedipine until further notice from PCP. Is patient prescribed a controlled substance at d/c from ED?: No Referrals: Dung Sparks MD [Primary Care Provider] - 1-2 days Time of Disposition: 07:32
[2018-07-27 05:52] LABS: Anisocytosis Slight; Basophils # (A) 0.1 k/uL (0-0.2); Basophils % (A) 1 %; Eosinophils # (A) 0.3 k/uL (0-0.7); Eosinophils % (A) 2 %; HCT 43.4 % (39.0-53.0); HGB 14.4 gm/dL (13.0-17.5); Lymphocytes # (A) 1.2 k/uL (1.0-4.8); Lymphocytes % (A) 9 %; MCH 27.8 pg (25.0-35.0); MCHC 33.2 g/dL (31.0-37.0); MCV 83.8 fL (80.0-100.0); Mean Platelet Volume 6.9; Monocytes # (A) 0.8 k/uL (0-1.0); Monocytes % (A) 6 %; Neutrophils # (A) 10.5 k/uL (1.3-7.7); Neutrophils % (A) 79 %; Platelet Count 335 k/uL (150-450); RBC 5.18 m/uL (4.30-5.90); RDW 16.8 % (11.5-15.5); WBC 13.2 k/uL (3.8-10.6)
[2018-07-27 05:57] LABS: Albumin 4.4 g/dL (3.5-5.0); Calcium 9.7 mg/dL (8.4-10.2); Magnesium 1.9 mg/dL (1.6-2.3); Potassium 4.9 mmol/L (3.5-5.1); Total Bilirubin 0.6 mg/dL (0.2-1.3); Total Protein 7.1 g/dL (6.3-8.2)
[2018-07-27 06:00] LABS: Prothrombin Time 10.4 sec (9.0-12.0)
--- NOTE | 2018-07-27 06:27 | XR ---
EXAM: XR Chest, 2 Views CLINICAL HISTORY: Reason: Pain TECHNIQUE: Frontal and lateral views of the chest. COMPARISON: No relevant prior studies available. FINDINGS: Lungs: Unremarkable. No consolidation. Pleural space: Unremarkable. No pneumothorax. Heart: Unremarkable. No cardiomegaly. Mediastinum: Unremarkable. Bones/joints: Unremarkable. IMPRESSION: Mild chronic interstitial changes no evidence for effusions.
--- NOTE | 2018-07-27 06:30 | XR ---
EXAM: XR Pelvis, 1 or 2 Views CLINICAL HISTORY: Pain TECHNIQUE: Frontal view of the pelvis. COMPARISON: No relevant prior studies available. FINDINGS: Bones/joints: Unremarkable hip arthroplasty on the right. No evidence for prosthetic subluxation. No evidence for loosening of hardware. No acute fracture. No dislocation. Soft tissues: Unremarkable. IMPRESSION: No evidence for fracture or malalignment of the pelvis
--- NOTE | 2018-07-27 06:40 | CT ---
EXAM: CT Head Without Intravenous Contrast CLINICAL HISTORY: Pain TECHNIQUE: Axial computed tomography images of the head/brain without intravenous contrast. CTDI is 53.5 mGy and DLP is 1401.9 mGy-cm. This CT exam was performed using one or more of the following dose reduction techniques: automated exposure control, adjustment of the mA and/or kV according to patient size, and/or use of iterative reconstruction technique. COMPARISON: 04/14/18 FINDINGS: Brain: Unremarkable. No hemorrhage. Mild volume loss with scattered areas of suspected small vessel white matter disease. No edema. Ventricles: Unremarkable. No ventriculomegaly. Bones/joints: Unremarkable. No acute fracture. Soft tissues: Unremarkable. Sinuses: Unremarkable as visualized. No acute sinusitis. Mastoid air cells: Unremarkable as visualized. No mastoid effusion. IMPRESSION: Mild volume loss no acute abnormality no change from prior study EXAM: CT Cervical Spine Without Intravenous Contrast CLINICAL HISTORY: : Pain TECHNIQUE: Axial computed tomography images of the cervical spine without intravenous contrast. CTDI is 53.5 mGy and DLP is 41 9 mGy-cm. This CT exam was performed using one or more of the following dose reduction techniques: automated exposure control, adjustment of the mA and/or kV according to patient size, and/or use of iterative reconstruction technique. Coronal and sagittal reformatted images were created and reviewed. COMPARISON: 04/08/18. FINDINGS: Vertebrae: Unremarkable. No acute fracture. Discs/spinal canal/neural foramina: No acute findings. No spinal canal stenosis. Mild degenerative changes Soft tissues: Unremarkable. IMPRESSION: Mild degenerative changes with no change in alignment compared to prior study
[2018-07-27 06:44] VITALS: PULSE 60; RESP 18
[2018-07-27 07:39] VITALS: BP 140/78
[2018-07-27 07:57] VITALS: TEMP 98
== END 2018-07-27 08:07 | disposition home or self-care (01) ==
LOC: EC 05:14
DX: Z04.3 Encounter for examination and observation following other accident (principal); I48.91 Unspecified atrial fibrillation; I13.2 Hypertensive heart and chronic kidney disease with heart failure and with stage 5 chronic kidney disease, or end stage renal disease; E11.22 Type 2 diabetes mellitus with diabetic chronic kidney disease; I50.9 Heart failure, unspecified; N18.6 End stage renal disease; I25.10 Atherosclerotic heart disease of native coronary artery without angina pectoris; E78.5 Hyperlipidemia, unspecified; E03.9 Hypothyroidism, unspecified; Z79.890 Hormone replacement therapy; Z79.01 Long term (current) use of anticoagulants; Z79.899 Other long term (current) drug therapy; Z95.2 Presence of prosthetic heart valve; Z95.5 Presence of coronary angioplasty implant and graft; Z96.651 Presence of right artificial knee joint; Z99.2 Dependence on renal dialysis; Z86.73 Personal history of transient ischemic attack (TIA), and cerebral infarction without residual deficits; W18.09XA Striking against other object with subsequent fall, initial encounter; Y93.01 Activity, walking, marching and hiking
CPT/HCPCS: 36415; 70450; 71046; 72125; 72170; 80053; 83735; 84484; 85025; 85610; 93005; 99285

== ENCOUNTER 2018-09-29 13:08 | Observation (INO) | payer MEDICARE ==
--- NOTE | 2018-09-29 13:46 | ED ---
Recheck HPI - General Chief Complaint: Recheck/Abnormal Lab/Rx Stated Complaint: Cath replacement Time Seen by Provider: 09/29/18 13:29 Source: patient, EMS, RN notes reviewed Mode of arrival: ambulatory Limitations: no limitations - History of Present Illness Initial Comments: This is a 83-year-old male with a history of renal failure who does get dialysis on Monday and Saturdays every week with dialysis today was found to have a cracked dialysis catheter. He denies any chest pain shortness of breath fevers chills sweats or other symptoms. He states his dialysis just did not work today. He was sent here by Dr. Sorensen quite did discuss the case with. No other modifying factors MD Complaint: other - Related Data Home Medications Medication Instructions Recorded Confirmed Levothyroxine Sodium [Synthroid] 25 mcg PO DAILY 05/05/14 09/29/18 Simvastatin [Zocor] 20 mg PO HS 05/05/14 09/29/18 Apixaban [Eliquis] 2.5 mg PO BID 04/08/18 09/29/18 Metoprolol Succinate [Toprol XL] 25 mg PO DAILY 04/08/18 09/29/18 Pantoprazole Sodium [Protonix] 40 mg PO DAILY 04/25/18 09/29/18 Bisacodyl [Dulcolax] 10 mg RECTAL DAILY PRN 09/29/18 09/29/18 Collagenase [Santyl] 1 applic TOPICAL DAILY 09/29/18 09/29/18 HYDROcodone/APAP 5-325MG [[place] 1 tab PO Q6HR PRN 09/29/18 09/29/18 5-325] INSULIN ASPART (NovoLOG) [NovoLOG See Protocol SQ ACHS 09/29/18 09/29/18 (formulary)] Erica-Arnaldo 1 tab PO DAILY 09/29/18 09/29/18 Sennosides-Docusate Sodium 2 tab PO HS 09/29/18 09/29/18 [Senokot-S] Previous Rx's Medication Instructions Recorded Insulin Glargine [Lantus] 10 unit SQ HS #1 vial 02/19/18 INSULIN ASPART (NovoLOG) [NovoLOG 5 unit SQ AC-TID vial 03/13/18 (formulary)] Allergies Allergy/AdvReac Type Severity Reaction Status Date / Time No Known Allergies Allergy Verified 09/29/18 13:35 Review of Systems ROS Statement: Those systems with pertinent positive or pertinent negative responses have been documented in the HPI. ROS Other: All systems not noted in ROS Statement are negative. 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 ESRD with hemodialysis, current wound on R heel, prostrate cancer with surgery, iron anemia, benign colon polyps, diverticular disease, hypothyroid, aortic stenosis with valve replacement.rt heel wound-goes to [facility] on mon-last appointment 04/18/2018 with orders for Santyl dressing changes daily History of Any Multi-Drug Resistant Organisms: None Reported Past Surgical History: Cardiac Valve Replacement, Heart Catheterization, Hernia Repair, Joint Replacement, Prostate Surgery, Tonsillectomy Additional Past Surgical History / Comment(s): R hemodialysis catheter, 2014 aortic valve replaced, prostatectomy, colonoscopy with benign polypectomy, ariel ateral cataract removals, L eye retinal surgery, total R knee replacement. Past Anesthesia/Blood Transfusion Reactions: No Reported Reaction Past Psychological History: No Psychological Hx Reported Smoking Status: Former smoker Past Alcohol Use History: None Reported Past Drug Use History: None Reported - Past Family History Father Family Medical History: No Reported History Additional Family Medical History / Comment(s): age 92.5 years old- from old age Mother Family Medical History: Myocardial Infarction ([place]) General Exam - General Exam Comments Initial Comments: This is a well-developed well-nourished awake alert oriented 3 male Limitations: no limitations General appearance: alert, in no apparent distress Head exam: Present: atraumatic, normocephalic, normal inspection Eye exam: Present: normal appearance, PERRL, EOMI. Absent: scleral icterus, conjunctival injection, periorbital swelling ENT exam: Present: normal exam, mucous membranes moist Neck exam: Present: normal inspection. Absent: tenderness, meningismus, lymphadenopathy Respiratory exam: Present: normal lung sounds bilaterally, other (There is a dialysis catheter in the right upper anterior chest wall no evidence of any localized bleeding or infectious processes.). Absent: respiratory distress, wheezes, rales, rhonchi, stridor Cardiovascular Exam: Present: regular rate, normal rhythm, normal heart sounds. Absent: systolic murmur, diastolic murmur, rubs, gallop, clicks GI/Abdominal exam: Present: soft, normal bowel sounds. Absent: distended, tenderness, guarding, rebound, rigid Extremities exam: Present: normal inspection, full ROM, normal capillary refill. Absent: tenderness, pedal edema, joint swelling, calf tenderness Back exam: Present: normal inspection Neurological exam: Present: alert, oriented X3, CN II-XII intact Psychiatric exam: Present: normal affect, normal mood Skin exam: Present: warm, dry, intact, normal color. Absent: rash Course Vital Signs 09/29/18 13:12 Temperature 97.4 F L Pulse Rate 62 Respiratory 18 Rate Blood Pressure 137/70 O2 Sat by Pulse 100 Oximetry Medical Decision Making - Medical Decision Making I did discuss the case with Dr. Mcdaniel as well as Dr. Gaston the patient will be admitted and taken to [facility] for a dialysis catheter replacement. He will be admitted for dialysis. Disposition Clinical Impression: Peritoneal dialysis catheter mechanical complication, Chronic renal failure syndrome Disposition: ADMITTED IP TO THIS HOSP Condition: Fair Referrals: Dung Sparks MD [Primary Care Provider] - 1-2 days
[2018-09-29] MEDS ORDERED: NALOXONE 0.4 MG/ML 1 ML VIAL IV PRN (14:26)
[2018-09-29] MEDS ORDERED: HYDROcodone/APAP 5-325MG 1 EACH TAB PO PRN (14:30)
[2018-09-29] MEDS ORDERED: BISACODYL 10 MG SUPP RECTAL PRN (14:30)
[2018-09-29] MEDS ORDERED: cefOXitin 2 GM VIAL IVPB ONE (15:03)
[2018-09-29] MEDS ORDERED: LIDOCAINE 1% INJ 10MG/ML (20 ML MDV) SQ ONE (15:03)
[2018-09-29] MEDS ORDERED: ceFAZolin 1,000 MG VIAL IV ONE (15:03)
[2018-09-29] MEDS ORDERED: MIDAZOLAM (PF) 2 MG/2 ML VIAL IVP ONE (15:20)
[2018-09-29] MEDS ORDERED: IV FLUID CONTINUATION 1,000 ML IV ONE (15:21)
[2018-09-29 17:22] LABS: Albumin 3.5 g/dL (3.5-5.0); Calcium 8.6 mg/dL (8.4-10.2); Potassium 4.7 mmol/L (3.5-5.1); Total Bilirubin 0.3 mg/dL (0.2-1.3); Total Protein 5.8 g/dL (6.3-8.2)
[2018-09-29 17:31] LABS: Glucose,Whole Blood 160 mg/dL (75-99)
[2018-09-29] MEDS: INSULIN ASPART (NovoLOG) 100 UNIT/ML VIAL SQ SCH ×3 (17:41→20:35)
[2018-09-29 18:05] LABS: Albumin 3.3 g/dL (3.5-5.0); Calcium 8.3 mg/dL (8.4-10.2); Potassium 4.4 mmol/L (3.5-5.1); Total Bilirubin 0.3 mg/dL (0.2-1.3); Total Protein 5.5 g/dL (6.3-8.2)
[2018-09-29 18:07] LABS: Basophils % (A) 1 %; Eosinophils # (A) 0.2 k/uL (0-0.7); Eosinophils % (A) 3 %; HCT 30.1 % (39.0-53.0); Lymphocytes # (A) 1.4 k/uL (1.0-4.8); Lymphocytes % (A) 18 %; MCH 29.8 pg (25.0-35.0); MCHC 32.8 g/dL (31.0-37.0); Mean Platelet Volume 7.3; Monocytes # (A) 0.7 k/uL (0-1.0); Monocytes % (A) 9 %; Neutrophils # (A) 5.2 k/uL (1.3-7.7); Neutrophils % (A) 68 %; Platelet Count 339 k/uL (150-450); RBC 3.31 m/uL (4.30-5.90); RDW 15.6 % (11.5-15.5); WBC 7.7 k/uL (3.8-10.6)
[2018-09-29 18:13] LABS: HGB 9.9 gm/dL (13.0-17.5); MCV 90.8 fL (80.0-100.0)
[2018-09-29] MEDS: APIXABAN 2.5 MG TABLET PO SCH (20:16)
[2018-09-29 20:34] LABS: Glucose,Whole Blood 162 mg/dL (75-99)
[2018-09-29] MEDS ORDERED: ATORVASTATIN 10 MG TAB PO SCH (21:00)
[2018-09-29] MEDS ORDERED: SENNOSIDES-DOCUSATE SODIUM 1 EACH TAB PO SCH (21:00)
[2018-09-29] MEDS ORDERED: INSULIN DETEMIR (LEVEMIR) 100 UNIT/ML SYR SQ SCH (21:00)
--- NOTE | 2018-09-29 21:33 | P.HPIM ---
History of Present Illness H&P Date: 09/29/18 Chief Complaint: Occluded HD catheter These Is a pleasant 83-year-old gentleman patient of Dr. 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 He was sent in from HD today as his routine schedule Saturdays, however during HD, his catheter was found to be occluded, and was subsequently sent to the emergency room for access of HD. Dr. mcdaniel has been consulted, Dr. Berry has been consulted. Per patient, patient is not anuric, no chest pain or palpitations, no abdominal pain, patient has no lightheadedness no fever no chills. Labs in the ER hemoglobin 9.9, creatinine 5.5, potassium 4.[address] Mcdaniel has replaced he is HD catheter right subclavian area today Review of Systems Constitutional: Reports as per HPI, Denies anorexia, Denies chills, Denies chronic headaches, Denies chronic pain, Denies daytime sleepiness, Denies fatigue, Denies fever, Denies lethargy, Denies malaise, Denies night sweats, Denies poor appetite, Denies sweats, Denies weakness, Denies weight gain, Denies weight loss Ears, nose, mouth and throat: Reports as per HPI, Denies ant. neck pain, Denies bleeding gums, Denies dental pain, Denies dysphagia, Denies epistaxis, Denies headache, Denies hoarseness, Denies mouth pain, Denies nasal congestion, Denies nasal discharge, Denies neck fullness/pressure, Denies neck lump, Denies nose pain, Denies odynophagia, Denies post-nasal drip, Denies sinus pain, Denies sinus pressure, Denies swelling in mouth, Denies swelling in throat, Denies sore throat, Denies vertigo, Denies voice changes Cardiovascular: Reports as per HPI Respiratory: Reports as per HPI, Denies congestion, Denies cough, Denies cough with sputum, Denies dyspnea, Denies excessive sputum, Denies hemoptysis, Denies home oxygen, Denies pain, Denies pain on inspiration, Denies pleurisy, Denies respiratory infections, Denies sleep apnea, Denies snoring, Denies wheezing Gastrointestinal: Reports as per HPI, Denies abdominal pain, Denies belching, Denies bloating, Denies BRBPR, Denies change in bowel habits, Denies coffee ground emesis, Denies constipation, Denies diarrhea, Denies dyspepsia, Denies early satiety, Denies excessive gas, Denies heartburn, Denies hematemesis, Denies hematochezia, Denies indigestion, Denies jaundice, Denies lactose intolerance, Denies loss of appetite, Denies melena, Denies nausea, Denies vomiting Genitourinary: Reports as per HPI Musculoskeletal: Reports as per HPI Integumentary: Reports as per HPI, Denies acne, Denies boils, Denies brittle nails, Denies change in hair/nails, Denies color changes, Denies darkening of skin, Denies depigmentation, Denies dryness, Denies foot/leg ulcers, Denies growths, Denies hirsutism, Denies lesions, Denies onychomycosis, Denies pruritus, Denies rash, Denies sores, Denies striae, Denies unusual bruising, Denies wounds Neurological: Reports as per HPI, Denies aphasia, Denies ataxia, Denies balance difficulties, Denies burning pain, Denies change in mentation, Denies change in smell/taste, Denies change in speech, Denies confusion, Denies convulsions, Denies double vision, Denies gait dysfunction, Denies head injury, Denies headaches, Denies hearing difficulties, Denies lack of coordination, Denies loss of vision, Denies memory loss, Denies migraines, Denies motor disturbance, Denies numbness, Denies paralysis, Denies paresthesias, Denies seizures, Denies sensory deficit, Denies spasticity, Denies syncope, Denies tic, Denies tingling, Denies transient paralysis, Denies tremors, Denies vertigo, Denies weakness, Denies visual changes Psychiatric: Reports as per HPI Endocrine: Reports as per HPI, Denies cold intolerance, Denies deepening of the voice, Denies excessive sweating, Denies excessive thirst, Denies fatigue, Denies flushing, Denies heat intolerance, Denies high blood sugars, Denies increase in ring/shoe/hat size, Denies low blood sugars, Denies nocturia, Denies palpitations, Denies polydipsia, Denies polyphagia, Denies polyuria, Denies proptosis, Denies recent glucocorticoid use, Denies thyroid mass, Denies weight change Hematologic/Lymphatic: Reports as per HPI, Denies easy bleeding, Denies easy bruising, Denies lymphadenopathy, Denies lymphedema, Denies thrombophilia Allergic/Immunologic: Reports as per HPI, Denies allergic rhinitis, Denies anaphylaxis, Denies angioedema, Denies gluten intolerance, Denies persistent infections, Denies seasonal allergies, Denies urticaria, Denies wheezing Past Medical History Past Medical History: Atrial Fibrillation, Cancer, Heart Failure, CVA/TIA, Diabetes Mellitus, Hyperlipidemia, Hypertension, Pneumonia, Prostate Disorder, Renal Disease, Thyroid Disorder Additional Past Medical History / Comment(s): hypoglycemia, pneumonia, anemia ,(per previous charting-acute kidney injury 2ndary to ATN 2ndary to necrotizing and crescentic glomerulonephritis per kidney bx-was sent to [facility] in [place] for plasmapheresis with no improvement)-now on hemodialysis //mon. ESRD with hemodialysis, current wound on R heel, prostrate cancer with surgery, iron anemia, benign colon polyps, diverticular disease, hypothyroid, aortic stenosis with valve replacement.rt heel wound-goes to [facility] on mon-last appointment 04/18/2018 with orders for Santyl dressing changes daily History of Any Multi-Drug Resistant Organisms: None Reported Past Surgical History: Cardiac Valve Replacement, Heart Catheterization, Hernia Repair, Joint Replacement, Prostate Surgery, Tonsillectomy Additional Past Surgical History / Comment(s): R hemodialysis catheter, 2014 aortic valve replaced, prostatectomy, colonoscopy with benign polypectomy, bilateral cataract removals, L eye retinal surgery, total R knee replacement. Past Anesthesia/Blood Transfusion Reactions: No Reported Reaction Past Psychological History: No Psychological Hx Reported Additional Psychological History / Comment(s): Single and lives independently. Has caregivers. Stopped smoking several years ago. 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 No recent travel history. No animals in the home Smoking Status: Former smoker Past Alcohol Use History: None Reported Additional Past Alcohol Use History / Comment(s): Pt states he started smoking in college and was a light smoker. He cannot recall when he actually quit but states he only smoked lightly for a few years. Past Drug Use History: None Reported - Past Family History Father Family Medical History: No Reported History Additional Family Medical History / Comment(s): age 92.5 years old- from old age Mother Family Medical History: Myocardial Infarction ([place]) Medications and Allergies Home Medications Medication Instructions Recorded Confirmed Type Levothyroxine Sodium [Synthroid] 25 mcg PO DAILY 05/05/14 09/29/18 History Simvastatin [Zocor] 20 mg PO HS 05/05/14 09/29/18 History Insulin Glargine [Lantus] 10 unit SQ HS #1 vial 02/19/18 09/29/18 Rx INSULIN ASPART (NovoLOG) [NovoLOG 5 unit SQ AC-TID vial 03/13/18 09/29/18 Rx (formulary)] Apixaban [Eliquis] 2.5 mg PO BID 04/08/18 09/29/18 History Metoprolol Succinate [Toprol XL] 25 mg PO DAILY 04/08/18 09/29/18 History Pantoprazole Sodium [Protonix] 40 mg PO DAILY 04/25/18 09/29/18 History Bisacodyl [Dulcolax] 10 mg RECTAL DAILY PRN 09/29/18 09/29/18 History Collagenase [Santyl] 1 applic TOPICAL DAILY 09/29/18 09/29/18 History HYDROcodone/APAP 5-325MG [[place] 1 tab PO Q6HR PRN 09/29/18 09/29/18 History 5-325] INSULIN ASPART (NovoLOG) [NovoLOG See Protocol SQ ACHS 09/29/18 09/29/18 History (formulary)] Erica-Arnaldo 1 tab PO DAILY 09/29/18 09/29/18 History Sennosides-Docusate Sodium 2 tab PO HS 09/29/18 09/29/18 History [Senokot-S] Allergies Allergy/AdvReac Type Severity Reaction Status Date / Time No Known Allergies Allergy Verified 09/29/18 13:35 Physical Exam Vitals: Vital Signs Temp Pulse Pulse Resp BP BP Pulse Ox 09/29/18 18:20 65 167/93 09/29/18 17:05 60 117/82 09/29/18 16:40 62 182/76 09/29/18 16:20 64 176/79 09/29/18 16:02 98.6 F 60 16 169/80 100 09/29/18 13:12 97.4 F L 62 18 137/70 100 Intake and Output 09/29/18 09/29/18 09/29/18 06:59 14:59 22:59 Intake Total 50 Balance 50 Intake: IV 50 Other: # Voids 0 # Bowel Movements 0 Weight 92.986 kg - Constitutional General appearance: average body habitus, cooperative, no acute distress - EENT Eyes: anicteric sclerae, EOMI, PERRLA, dentition normal, normal appearance ENT: NA/AT, normal oropharynx - Neck Neck: no lymphadenopathy, normal ROM, no other, no rigidity, no stridor, no thyromegaly - Respiratory Respiratory: bilateral: CTA, negative: diminished, dullness - Cardiovascular Rhythm: regular Heart sounds: normal: S1, S2 Abnormal Heart Sounds: no systolic murmur, no diastolic murmur, no rub, no S3 Gallop, no S4 Gallop, no click, no other - Gastrointestinal General gastrointestinal: normal bowel sounds, soft - Integumentary Integumentary: decreased turgor, normal - Neurologic Neurologic: CNII-XII intact - Musculoskeletal Musculoskeletal: strength equal bilaterally - Psychiatric Psychiatric: A&O x's 3, appropriate affect, intact judgment & insight Results CBC & Chem 7: 09/29/18 15:10 09/29/18 16:31 Labs: Abnormal Lab Results - Last 24 Hours (Table) 09/29/18 09/29/18 09/29/18 Range/Units 15:10 15:10 16:31 RBC 3.31 L (4.30-5.90) m/uL Hgb 9.9 L D (13.0-17.5) gm/dL Hct 30.1 L (39.0-53.0) % RDW 15.6 H (11.5-15.5) % BUN 35 H 35 H (9-20) mg/dL Creatinine 5.15 H 5.50 H (0.66-1.25) mg/dL Glucose 165 H 161 H (74-99) mg/dL POC Glucose (mg/dL) (75-99) mg/dL Calcium 8.3 L (8.4-10.2) mg/dL AST 10 L 10 L (17-59) U/L ALT 14 L 15 L (21-72) U/L Total Protein 5.5 L 5.8 L (6.3-8.2) g/dL Albumin 3.3 L (3.5-5.0) g/dL 09/29/18 09/29/18 Range/Units 17:11 20:17 RBC (4.30-5.90) m/uL Hgb (13.0-17.5) gm/dL Hct (39.0-53.0) % RDW (11.5-15.5) % BUN (9-20) mg/dL Creatinine (0.66-1.25) mg/dL Glucose (74-99) mg/dL POC Glucose (mg/dL) 160 H 162 H (75-99) mg/dL Calcium (8.4-10.2) mg/dL AST (17-59) U/L ALT (21-72) U/L Total Protein (6.3-8.2) g/dL Albumin (3.5-5.0) g/dL Thrombosis Risk Factor Assmnt - Choose All That Apply Any of the Below Risk Factors Present?: No Assessment and Plan Plan: 1. Malfunctioning off of temporary HD catheter, maintained on HD Saturdays, consulted with Dr. Mcdaniel, replacement of the HD catheter right subclavian performed 09/29/2018, consulted Dr. Hicks for HD treatments he is scheduled to have creation off the AV fistula on the left brachial in the next one month 2. End-stage renal disease on HD Saturdays, secondary to ANCA vasculitis, follows with nephrology, HD hopefully in the next 2448 hrs. prior to returning to [facility] 3. Diabetes mellitus type 2 insulin requiring Lantus 10 units with NovoLog 5 units pre-meal 3 times a day 4. Anemia of chronic disease, stable was on iron S in the past 5. Hyponatremia secondary to chronic disease next 6. Atrial fibrillation long-term eliquis metoprolol 7. History of prostate cancer requiring surgery 8. Hypertension 9. 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 Hyperlipidemia on Zocor 20 Discharge planning return to [facility] most likely Monday, patient currently is under observation status
--- NOTE | 2018-09-29 21:58 | CONS ---
CONSULTATION This is and 83 -year-old gentleman well known to me from the past. The patient has history of chronic renal failure. The patient has a dialysis catheter right jugular approach. The patient came to the dialysis today and there was a leak in the catheter. The patient is scheduled to have a placement of a new dialysis catheter. MEDICAL HISTORY: History of chronic renal failure. The patient past history had a right IJ catheter placed in the past. Patient had venous mapping. We will schedule for a fistula. PHYSICAL EXAMINATION: NECK: Supple. Trachea central. CHEST: Clear to auscultation. ABDOMEN: Soft. Femoral pulses are present. Patient has a dialysis catheter right IJ approach. PLAN: Placement of a dialysis catheter and removal of the old catheter. Risks and complications discussed. Thank you for the consultation. GERDA / VANGIE: [id number] /
--- NOTE | 2018-09-30 00:01 | PCN ---
PROCEDURE NOTE PREOP DIAGNOSES: Acute on chronic renal failure, leaking dialysis catheter. PROCEDURE PERFORMED: Placement of a 23 cm dialysis catheter. 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 Right side of the neck and chest was prepped and drapes applied in the usual sterile vaginal manner. This patient had a dialysis catheter. There was a leak in the catheter. Incision was made in the neck with 1% lidocaine. The catheter was divided and a Glidewire was passed through the catheter. The guidewire was in the inferior vena cava. After that, a tunnel was created. Through the tunnel we brought 23 cm dialysis catheter. The old catheter was removed and a new catheter were placed through the sheath. Sheath was removed and flushed with heparin saline and hep-locked. Incision closed with Vicryl and nylon. Dressing applied. Patient tolerated the procedure well. GERDA / THOMASN: [id number] /
[2018-09-30 05:32] VITALS: RESP 18
--- NOTE | 2018-09-30 06:13 | IR ---
EXAMINATION TYPE: IR cvc insert central tunneled DATE OF EXAM: 09/29/2018 CLINICAL HISTORY: Failed dialysis TECHNIQUE: Fluoroscopy. COMPARISON: None. FINDINGS: Fluoroscopic guidance was provided during large bore right internal jugular dialysis stephanie ter insertion procedure performed by Dr. Sorensen. A total of 0.7 minutes of fluoroscopic time was ut ilized during the procedure and 4 cine runs are acquired. Images acquired show portions of dual lumen right internal jugular central venous catheter overlying right atrium. IMPRESSION: As Above.
[2018-09-30] MEDS ORDERED: LEVOTHYROXINE 25 MCG TAB PO SCH (06:30)
[2018-09-30] MEDS: INSULIN ASPART (NovoLOG) 100 UNIT/ML VIAL SQ SCH ×4 (06:52→12:21)
[2018-09-30 07:22] LABS: Glucose,Whole Blood 102 mg/dL (75-99)
[2018-09-30] MEDS ORDERED: PANTOPRAZOLE 40 MG TABLET PO SCH (07:30)
[2018-09-30] MEDS: APIXABAN 2.5 MG TABLET PO SCH (07:51)
[2018-09-30 08:35] LABS: Basophils # (A) 0.1 k/uL (0-0.2); Basophils % (A) 1 %; Eosinophils # (A) 0.2 k/uL (0-0.7); Eosinophils % (A) 2 %; HCT 31.1 % (39.0-53.0); HGB 10.7 gm/dL (13.0-17.5); Lymphocytes # (A) 1.3 k/uL (1.0-4.8); Lymphocytes % (A) 16 %; MCH 31.4 pg (25.0-35.0); MCHC 34.5 g/dL (31.0-37.0); Mean Platelet Volume 6.7; Monocytes # (A) 0.8 k/uL (0-1.0); Monocytes % (A) 10 %; Neutrophils # (A) 5.9 k/uL (1.3-7.7); Neutrophils % (A) 70 %; Platelet Count 361 k/uL (150-450); RBC 3.42 m/uL (4.30-5.90); RDW 15.3 % (11.5-15.5); WBC 8.4 k/uL (3.8-10.6)
[2018-09-30] MEDS ORDERED: COLLAGENASE 250 UNIT/GM OINTMENT 30 GM TUBE TOPICAL SCH (09:00)
[2018-09-30] MEDS ORDERED: METOPROLOL SUCCINATE (ER) 25 MG TAB.ER.24H PO SCH (09:00)
[2018-09-30] MEDS ORDERED: FOLIC ACID-VIT B COMPLEX-VIT C 1 CAP PO SCH (09:00)
[2018-09-30 09:03] LABS: Albumin 3.5 g/dL (3.5-5.0); Total Bilirubin 0.5 mg/dL (0.2-1.3); Total Protein 5.8 g/dL (6.3-8.2)
--- NOTE | 2018-09-30 10:37 | P.NPCON ---
History of Present Illness - Reason for Consult end stage renal disease - History of Present Illness Reason for consultation: End-stage renal disease History of present illness: Patient is a 83-year-old male seen in consultation for end-stage renal disease. He is maintained on hemodialysis on a Monday schedule via right chest permacath. Patient went hemodialysis yesterday but could not get the treatment due to malfunctioning of the dialysis catheter. Patient was subsequently sent to the ER and had the catheter exchanged yesterday. He's currently seen while undergoing hemodialysis. No chest pain or shortness of breath. No fever or chills. No vomiting or diarrhea. Hemodynamically stable. Patient has no active complaints at this time. Vital signs are stable. General: The patient appeared well nourished and normally developed. HEENT: Head exam is unremarkable. Neck is without jugular venous distension. LUNGS: Lungs are clear to auscultation and percussion. Breath sounds decreased. HEART: Rate and Rhythm are regular. First and second heart sounds normal. No murmurs, rubs or gallops. ABDOMEN: Abdominal exam reveals normal bowel sounds. Non-tender and non-distende d. No evidence of peritonitis. EXTREMITITES: No clubbing, cyanosis, or edema. Past Medical History Past Medical History: Atrial Fibrillation, Cancer, Heart Failure, CVA/TIA, Diabetes Mellitus, Hyperlipidemia, Hypertension, Pneumonia, Prostate Disorder, Renal Disease, Thyroid Disorder Additional Past Medical History / Comment(s): hypoglycemia, pneumonia, anemia ,(per previous charting-acute kidney injury 2ndary to ATN 2ndary to necrotizing and crescentic glomerulonephritis per kidney bx-was sent to [facility] in [place] for plasmapheresis with no improvement)-now on hemodialysis //mon. ESRD with hemodialysis, current wound on R heel, prostrate cancer with surgery, iron anemia, benign colon polyps, diverticular disease, hypothyroid, aortic stenosis with valve replacement.rt heel wound-goes [facility]-last appointment 04/18/2018 with orders for Santyl dressing changes daily History of Any Multi-Drug Resistant Organisms: None Reported Past Surgical History: Cardiac Valve Replacement, Heart Catheterization, Hernia Repair, Joint Replacement, Prostate Surgery, Tonsillectomy Additional Past Surgical History / Comment(s): R hemodialysis catheter, 2014 aortic valve replaced, prostatectomy, colonoscopy with benign polypectomy, ariel ateral cataract removals, L eye retinal surgery, total R knee replacement. Past Anesthesia/Blood Transfusion Reactions: No Reported Reaction Past Psychological History: No Psychological Hx Reported Additional Psychological History / Comment(s): Single and lives independently. Has caregivers. Stopped smoking several years ago. 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 No recent travel history. No animals in the home Smoking Status: Former smoker Past Alcohol Use History: None Reported Additional Past Alcohol Use History / Comment(s): Pt states he started smoking in college and was a light smoker. He cannot recall when he actually quit but states he only smoked lightly for a few years. Past Drug Use History: None Reported - Past Family History Father Family Medical History: No Reported History Additional Family Medical History / Comment(s): age 92.5 years old- from old age Mother Family Medical History: Myocardial Infarction ([place]) Medications and Allergies Home Medications Medication Instructions Recorded Confirmed Type Levothyroxine Sodium [Synthroid] 25 mcg PO DAILY 05/05/14 09/29/18 History Simvastatin [Zocor] 20 mg PO HS 05/05/14 09/29/18 History Insulin Glargine [Lantus] 10 unit SQ HS #1 vial 02/19/18 09/29/18 Rx INSULIN ASPART (NovoLOG) [NovoLOG 5 unit SQ AC-TID vial 03/13/18 09/29/18 Rx (formulary)] Apixaban [Eliquis] 2.5 mg PO BID 04/08/18 09/29/18 History Metoprolol Succinate [Toprol XL] 25 mg PO DAILY 04/08/18 09/29/18 History Pantoprazole Sodium [Protonix] 40 mg PO DAILY 04/25/18 09/29/18 History Bisacodyl [Dulcolax] 10 mg RECTAL DAILY PRN 09/29/18 09/29/18 History Collagenase [Santyl] 1 applic TOPICAL DAILY 09/29/18 09/29/18 History HYDROcodone/APAP 5-325MG [[place] 1 tab PO Q6HR PRN 09/29/18 09/29/18 History 5-325] INSULIN ASPART (NovoLOG) [NovoLOG See Protocol SQ ACHS 09/29/18 09/29/18 History (formulary)] Erica-Arnaldo 1 tab PO DAILY 09/29/18 09/29/18 History Sennosides-Docusate Sodium 2 tab PO HS 09/29/18 09/29/18 History [Senokot-S] Allergies Allergy/AdvReac Type Severity Reaction Status Date / Time No Known Allergies Allergy Verified 09/29/18 13:35 Physical Exam Vitals: Vital Signs Temp Pulse Pulse Resp BP BP Pulse Ox 09/30/18 08:00 18 09/30/18 05:00 97.5 F L 64 18 137/65 98 09/29/18 22:14 16 09/29/18 21:00 97.7 F 67 18 159/79 99 09/29/18 18:20 65 167/93 09/29/18 17:05 60 117/82 09/29/18 16:40 62 182/76 09/29/18 16:20 64 176/79 09/29/18 16:02 98.6 F 60 16 169/80 100 09/29/18 13:12 97.4 F L 62 18 137/70 100 Intake and Output 09/29/18 09/30/18 09/30/18 22:59 06:59 14:59 Intake Total 350 250 Output Total 200 Balance 350 50 Intake: IV 50 Oral 300 250 Output: Urine 200 Other: Voiding Method Urinal # Voids 1 0 # Bowel Movements 0 Results - Lab Results Most recent lab results Calcium 9.0 mg/dL (8.4-10.2) 09/30/18 07:45 Magnesium 2.1 mg/dL (1.6-2.3) 09/29/18 16:31 09/30/18 07:45 09/30/18 07:45 Assessment and Plan Plan: Assessment: 1. End-stage renal disease maintained on hemodialysis on a Monday schedule via permacath. 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 2. Malfunctioning permacath status post exchange yesterday. 3. Insulin-dependent diabetes mellitus. 4. A. fib maintained on metoprolol and anticoagulation. Plan: Currently seen while undergoing hemodialysis. Next treatment on Monday for his outpatient schedule. Stable to be discharged home from nephrology standpoint. Thank you for the consultation. I will continue to follow the patient with you during his hospital stay.
[2018-09-30 11:59] LABS: Glucose,Whole Blood 118 mg/dL (75-99)
--- NOTE | 2018-09-30 12:24 | P.DS ---
Providers Date of admission: 09/29/18 14:27 Attending physician: Elsa Gaston Consults: 09/29/18 14:28 Consult Physician Routine Consulting Provider: Vinicius Hicks Consult Reason/Comments: Dialysis after new catheter placed Do you want consulting provider notified?: Yes 09/29/18 14:29 Consult Physician Urgent Consulting Provider: Phil Mcdaniel Consult Reason/Comments: Dialysis catheter replacement Do you want consulting provider notified?: Yes Primary care physician: Dung [facility] Course: Chief Complaint: Occluded HD catheter These Is a pleasant 83-year-old gentleman patient of Dr. Sparks.he currently resides at 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 He was sent in from HD today as his routine schedule Saturdays, however during HD, his catheter was found to be occluded, and was subsequently sent to the emergency room for access of HD. Dr. mcdaniel has been consulted, Dr. Berry has been consulted. Per patient, patient is not anuric, no chest pain or palpitations, no abdominal pain, patient has no lightheadedness no fever no chills. Labs in the ER hemoglobin 9.9, creatinine 5.5, potassium 4.[address] Mcdaniel has replaced he is HD catheter right subclavian area today 09/29/201809/30, patient had hd treatment today without complications, has been cleared for discharge by both vascular and nephrology to return back to [facility], op followup with dr mcdaniel and dr Wetzel or Dr Hicks, HD scheduled as [id number] on mon and monday Review of Systems Constitutional: Reports as per HPI, Denies anorexia, Denies chills, Denies chronic headaches, Denies chronic pain, Denies daytime sleepiness, Denies fatigue, Denies fever, Denies lethargy, Denies malaise, Denies night sweats, Denies poor appetite, Denies sweats, Denies weakness, Denies weight gain, Denies weight loss Ears, nose, mouth and throat: Reports as per HPI, Denies ant. neck pain, Denies bleeding gums, Denies dental pain, Denies dysphagia, Denies epistaxis, Denies headache, Denies hoarseness, Denies mouth pain, Denies nasal congestion, Denies nasal discharge, Denies neck fullness/pressure, Denies neck lump, Denies nose pain, Denies odynophagia, Denies post-nasal drip, Denies sinus pain, Denies sinus pressure, Denies swelling in mouth, Denies swelling in throat, Denies sore throat, Denies vertigo, Denies voice changes Cardiovascular: Reports as per HPI Respiratory: Reports as per HPI, Denies congestion, Denies cough, Denies cough with sputum, Denies dyspnea, Denies excessive sputum, Denies hemoptysis, Denies home oxygen, Denies pain, Denies pain on inspiration, Denies pleurisy, Denies respiratory infections, Denies sleep apnea, Denies snoring, Denies wheezing Gastrointestinal: Reports as per HPI, Denies abdominal pain, Denies belching, Denies bloating, Denies BRBPR, Denies change in bowel habits, Denies coffee ground emesis, Denies constipation, Denies diarrhea, Denies dyspepsia, Denies early satiety, Denies excessive gas, Denies heartburn, Denies hematemesis, Denies hematochezia, Denies indigestion, Denies jaundice, Denies lactose intolerance, Denies loss of appetite, Denies melena, Denies nausea, Denies vomiting Genitourinary: Reports as per HPI Musculoskeletal: Reports as per HPI Integumentary: Reports as per HPI, Denies acne, Denies boils, Denies brittle nails, Denies change in hair/nails, Denies color changes, Denies darkening of skin, Denies depigmentation, Denies dryness, Denies foot/leg ulcers, Denies growths, Denies hirsutism, Denies lesions, Denies onychomycosis, Denies pruritus, Denies rash, Denies sores, Denies striae, Denies unusual bruising, Denies wounds Neurological: Reports as per HPI, Denies aphasia, Denies ataxia, Denies balance difficulties, Denies burning pain, Denies change in mentation, Denies change in smell/taste, Denies change in speech, Denies confusion, Denies convulsions, Denies double vision, Denies gait dysfunction, Denies head injury, Denies headaches, Denies hearing difficulties, Denies lack of coordination, Denies loss of vision, Denies memory loss, Denies migraines, Denies motor disturbance, Denies numbness, Denies paralysis, Denies paresthesias, Denies seizures, Denies sensory deficit, Denies spasticity, Denies syncope, Denies tic, Denies tingling, Denies transient paralysis, Denies tremors, Denies vertigo, Denies weakness, Denies visual changes Psychiatric: Reports as per HPI Endocrine: Reports as per HPI, Denies cold intolerance, Denies deepening of the voice, Denies excessive sweating, Denies excessive thirst, Denies fatigue, Denies flushing, Denies heat intolerance, Denies high blood sugars, Denies increase in ring/shoe/hat size, Denies low blood sugars, Denies nocturia, Denies palpitations, Denies polydipsia, Denies polyphagia, Denies polyuria, Denies proptosis, Denies recent glucocorticoid use, Denies thyroid mass, Denies weight change Hematologic/Lymphatic: Reports as per HPI, Denies easy bleeding, Denies easy bruising, Denies lymphadenopathy, Denies lymphedema, Denies thrombophilia Allergic/Immunologic: Reports as per HPI, Denies allergic rhinitis, Denies anaphylaxis, Denies angioedema, Denies gluten intolerance, Denies persistent infections, Denies seasonal allergies, Denies urticaria, Denies wheezing Assessment and Plan /final diagnosis Plan: 1. Malfunctioning off of temporary HD catheter, maintained on HD Saturdays, consulted with Dr. Mcdaniel, replacement of the HD catheter right subclavian performed 09/29/2018, consulted Dr. Hicks for HD treatments he is scheduled to have creation off the AV fistula on the left brachial in the next one month 2. End-stage renal disease on HD Saturdays, secondary to ANCA vasculitis, follows with nephrology, HD given today without complications completed prior to returning to [facility] 3. Diabetes mellitus type 2 insulin requiring Lantus 10 units with NovoLog 5 units pre-meal 3 times a day 4. Anemia of chronic disease, stable was on iron S in the past 5. Hyponatremia secondary to chronic disease next 6. Atrial fibrillation long-term eliquis metoprolol 7. History of prostate cancer requiring surgery 8. Hypertension 9. 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 Hyperlipidemia on Zocor 20 Discharge planning return to , dr Sparks to follow, patient currently is under observation status Patient Condition at Discharge: Fair Plan - Discharge Summary New Discharge Prescriptions: New HYDROcodone/APAP 5-325MG [[place] 5-325] 1 each PO Q6HR PRN #12 tab PRN Reason: Pain Pantoprazole [Protonix] 40 mg PO AC-BRKFST tablet.dr Mancuso Levothyroxine Sodium [Synthroid] 25 mcg PO DAILY Simvastatin [Zocor] 20 mg PO HS Insulin Glargine [Lantus] 10 unit SQ HS #1 vial INSULIN ASPART (NovoLOG) [NovoLOG (formulary)] 5 unit SQ AC-TID vial Apixaban [Eliquis] 2.5 mg PO BID Metoprolol Succinate [Toprol XL] 25 mg PO DAILY Pantoprazole Sodium [Protonix] 40 mg PO DAILY Bisacodyl [Dulcolax] 10 mg RECTAL DAILY PRN PRN Reason: Constipation Sennosides-Docusate Sodium [Senokot-S] 2 tab PO HS INSULIN ASPART (NovoLOG) [NovoLOG (formulary)] See Protocol SQ ACHS HYDROcodone/APAP 5-325MG [[place] 5-325] 1 tab PO Q6HR PRN PRN Reason: Pain Collagenase [Santyl] 1 applic TOPICAL DAILY Erica-Arnaldo 1 tab PO DAILY Discharge Medication List Levothyroxine Sodium [Synthroid] 25 mcg PO DAILY 05/05/14 [History] Simvastatin [Zocor] 20 mg PO HS 05/05/14 [History] Insulin Glargine [Lantus] 10 unit SQ HS #1 vial 02/19/18 [Rx] INSULIN ASPART (NovoLOG) [NovoLOG (formulary)] 5 unit SQ AC-TID vial 03/13/18 [Rx] Apixaban [Eliquis] 2.5 mg PO BID 04/08/18 [History] Metoprolol Succinate [Toprol XL] 25 mg PO DAILY 04/08/18 [History] Pantoprazole Sodium [Protonix] 40 mg PO DAILY 04/25/18 [History] Bisacodyl [Dulcolax] 10 mg RECTAL DAILY PRN 09/29/18 [History] Collagenase [Santyl] 1 applic TOPICAL DAILY 09/29/18 [History] HYDROcodone/APAP 5-325MG [[place] 5-325] 1 tab PO Q6HR PRN 09/29/18 [History] INSULIN ASPART (NovoLOG) [NovoLOG (formulary)] See Protocol SQ ACHS 09/29/18 [History] Erica-Arnaldo 1 tab PO DAILY 09/29/18 [History] Sennosides-Docusate Sodium [Senokot-S] 2 tab PO HS 09/29/18 [History] HYDROcodone/APAP 5-325MG [[place] 5-325] 1 each PO Q6HR PRN #12 tab 09/30/18 [Rx] Pantoprazole [Protonix] 40 mg PO AC-BRKFST tablet. 09/30/18 [Rx] Follow up Appointment(s)/Referral(s): Eugenia Berry MD [STAFF PHYSICIAN] - 1 Week ([facility]) Dung Sparks MD [Primary Care Provider] - 1-2 days Phil Mcdaniel MD [STAFF PHYSICIAN] - 10 Days Patient Instructions/Handouts: Hemodialysis (DC) Discharge Disposition: TRANSFER TO SNF/ECF
[2018-09-30 13:13] VITALS: BP 117/60; PULSE 63; TEMP 98.5
== END 2018-09-30 14:10 ==
LOC: EC 13:08 → 4MS4W 14:27
PROVIDERS: ADMIT Family Medicine; ATTEND Family Medicine
DX: T82.43XA Leakage of vascular dialysis catheter, initial encounter (principal); N17.9 Acute kidney failure, unspecified; I13.2 Hypertensive heart and chronic kidney disease with heart failure and with stage 5 chronic kidney disease, or end stage renal disease; I50.9 Heart failure, unspecified; N18.6 End stage renal disease; I48.91 Unspecified atrial fibrillation; E78.5 Hyperlipidemia, unspecified; N05.7 Unspecified nephritic syndrome with diffuse crescentic glomerulonephritis; Z99.2 Dependence on renal dialysis; E11.22 Type 2 diabetes mellitus with diabetic chronic kidney disease; I35.0 Nonrheumatic aortic (valve) stenosis; E03.9 Hypothyroidism, unspecified; D63.8 Anemia in other chronic diseases classified elsewhere; E87.1 Hypo-osmolality and hyponatremia; K57.90 Diverticulosis of intestine, part unspecified, without perforation or abscess without bleeding; N40.0 Benign prostatic hyperplasia without lower urinary tract symptoms; D50.9 Iron deficiency anemia, unspecified; Z79.890 Hormone replacement therapy; Z79.01 Long term (current) use of anticoagulants; Z79.4 Long term (current) use of insulin; Z79.899 Other long term (current) drug therapy; Z86.73 Personal history of transient ischemic attack (TIA), and cerebral infarction without residual deficits; Z95.2 Presence of prosthetic heart valve; Z86.010 Personal history of colon polyps; Z96.651 Presence of right artificial knee joint; Z98.42 Cataract extraction status, left eye; Z98.41 Cataract extraction status, right eye; Z87.891 Personal history of nicotine dependence; Z87.01 Personal history of pneumonia (recurrent); Z85.46 Personal history of malignant neoplasm of prostate; Z82.49 Family history of ischemic heart disease and other diseases of the circulatory system
CPT/HCPCS: 99285; 36581; 80053 ×2; 83735; 85025 ×2; G0378 ×2; C1769 ×2; C1750; J0690 ×2; J2001; J2250; 90935